=== PATIENT | female | born 1980 | race Caucasian/White ===

== ENCOUNTER 2023-02-14 20:30 | Emergency (ER) | payer OTHER ==
--- NOTE | 2023-02-14 20:46 | ER ---
Nurse's Notes [facility] Name: Ivette Joshi Age: 42 yrs Sex: Female : 1980 Arrival Date: 02/14/2023 Time: 20:30 Bed 9 Private MD: Diagnosis: Acute suppurative otitis media without spontaneous rupture of ear drum, right ear Presentation: 02/14 20:40 Chief complaint: Patient states: Right ear pain for 3 weeks. Coronavirus screen: Client vc1 denies travel out of the [place] in the last 14 days. At this time, the client does not indicate any symptoms associated with coronavirus-19. Ebola Screen: Patient negative for fever greater than or equal to 101.5 degrees Fahrenheit, and additional compatible Ebola Virus Disease symptoms Patient denies exposure to infectious person. Patient denies travel to an Ebola-affected area in the 21 days before illness onset. No symptoms or risks identified at this time. Risk Assessment: Do you want to hurt yourself or someone else? Patient reports no desire to harm self or others. Onset of symptoms is unknown. 20:40 Method Of Arrival: Ambulatory vc1 20:40 Acuity: [facility] 4 vc1 20:58 Initial Sepsis Screen: Does the patient meet any 2 criteria? No. Patient's initial cm10 sepsis screen is negative. Does the patient have a suspected source of infection? No. Patient's initial sepsis screen is negative. 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 - Social history:: Smoking status: Patient reports the use of cigarette tobacco products, smokes one pack cigarettes per day. - Family history:: not pertinent. Screenin:47 Abuse screen: Denies threats or abuse. Nutritional screening: No deficits noted. vc1 Tuberculosis screening: No symptoms or risk factors identified. 20:57 [facility] ED Fall Risk Assessment (Adult) History of falling in the last 3 months, cm10 including since admission No falls in past 3 months (0 pts) Confusion or Disorientation No (0 pts) Intoxicated or Sedated No (0 pts) Impaired Gait No (0 pts) Mobility Assist Device Used No (0 pt) Altered Elimination No (0 pt) Score/Fall Risk Level 0 - 2 = Low Risk Oriented to surroundings, Maintained a safe environment. Assessment: 20:56 General: Appears in no apparent distress. comfortable, Behavior is calm, cooperative. cm10 Pain: Complains of pain in right ear. Neuro: No deficits noted. Level of Consciousness is awake, alert, obeys commands, Oriented to person, place, time, situation. Respiratory: No deficits noted. Airway is patent Respiratory effort is even, unlabored, Respiratory pattern is regular, symmetrical. EENT: Reports pain in right ear. Derm: No deficits noted. Skin is intact, Skin is pink, warm \T\ dry. Musculoskeletal: No deficits noted. Vital Signs: 20:47 BP 151 / 98; Pulse 98; Resp 20; Temp 98.8; Pulse Ox 97% ; Weight 102.06 kg; Height 5 vc1 ft. 6 in. ; Pain 0/10; 20:47 Body Mass Index 36.32 (102.06 kg, 167.64 cm) vc1 20:47 Pain Scale: Adult vc1 ED Course: 20:34 Patient arrived in ED. im 20:36 Robi Garcia MD is Attending Physician. sp4 20:40 Triage completed. vc1 20:47 Arm band placed on right wrist. vc1 20:53 Earline Salinas, JOSE is Primary Nurse. cm10 20:57 Patient has correct armband on for positive identification. Provided Education on: N/A. cm10 20:57 No provider procedures requiring assistance completed. Patient did not have IV access cm10 during this emergency room visit. Administered Medications: No medications were administered Medication: 20:57 VIS not applicable for this client. cm10 Outcome: 20:46 Discharge ordered by . sp4 20:57 Discharged to home ambulatory, with family. cm10 20:57 Condition: good 20:57 Discharge instructions given to patient, Instructed on discharge instructions, follow up and referral plans. medication usage, Demonstrated understanding of instructions, follow-up care, medications. 20:58 Patient left the ED. cm10 Signatures: Aziza Mesa RN RN vc1 Robi Garcia MD MD sp4 Marcia Sims Clarissa, RN RN cm10
--- NOTE | 2023-02-14 20:47 | EDPHYS ---
Physician Documentation [facility] Name: Ivette Joshi Age: 42 yrs Sex: Female : 1980 Arrival Date: 02/14/2023 Time: 20:30 Bed 9 Private MD: ED Physician Robi Garcia HPI: 02/14 20:37 This 42 yrs old Female presents to ER via Unassigned with complaints of Ear sp4 Pain. 20:42 Patient presents with a right ear pain and some drainage from the right ear over the sp4 past 3 weeks. Patient states that when she gets this type of problem usually a Z-José helps. Left ear is non problematic. 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 - Social history:: Smoking status: Patient reports the use of cigarette tobacco products, smokes one pack cigarettes per day. - Family history:: not pertinent. ROS: 20:42 Constitutional: Negative for fever, chills, and weight loss, Eyes: Negative for injury, sp4 pain, redness, and discharge, ENT: Negative for injury, positive for right ear pain, mild amount of discharge from right ear canal otherwise negative 20:42 All other systems are negative. Exam: 20:42 Constitutional: This is a well developed, well nourished patient who is awake, alert, sp4 and in no acute distress. Head/Face: Normocephalic, atraumatic. Eyes: Pupils equal round and reactive to light, extra-ocular motions intact. Lids and lashes normal. Conjunctiva and sclera are not injected. Cornea within normal limits. Periorbital areas with no swelling, redness, or edema. ENT: Nares patent. No nasal discharge, no septal abnormalities noted. Oropharynx with no redness, swelling, or masses, exudates, or evidence of obstruction, uvula midline. Mucous membranes moist. There is no sign of any abnormality on the left ear exam. TM looks normal. Right ear there is opacification of the right tympanic membrane without significant purulence and no redness however there is a right middle ear effusion by exam Neck: Trachea midline, no thyromegaly or masses palpated, and no cervical lymphadenopathy. Supple, full range of motion without nuchal rigidity, or vertebral point tenderness. Chest/axilla: Normal chest wall appearance and motion. Nontender with no deformity. No lesions are appreciated. Cardiovascular: Regular rate and rhythm with a normal S1 and S2. No gallops, murmurs, or rubs. Normal PMI, no JVD. No pulse deficits. Respiratory: Lungs have equal breath sounds bilaterally, clear to auscultation and percussion. No rales, rhonchi or wheezes noted. No increased work of breathing, no retractions or nasal flaring. Abdomen/GI: Soft, non-tender, with normal bowel sounds. No distension or tympany. No guarding or rebound. No evidence of tenderness throughout. Back: No spinal tenderness. No costovertebral tenderness. Skin: Warm, dry with normal turgor. Normal color with no rashes, no lesions, and no evidence of cellulitis. MS/ Extremity: Pulses equal, no cyanosis. Neurovascular intact. Full, normal range of motion. Neuro: Awake and alert, GCS 15, oriented to person, place, time, and situation. Cranial nerves II-XII grossly intact. Motor strength 5/5 in all extremities. Sensory grossly intact. Psych: Awake, alert, with orientation to person, place and time. Behavior, mood, and affect are within normal limits Vital Signs: 20:47 BP 151 / 98; Pulse 98; Resp 20; Temp 98.8; Pulse Ox 97% ; Weight 102.06 kg; Height 5 vc1 ft. 6 in. ; Pain 0/10; 20:47 Body Mass Index 36.32 (102.06 kg, 167.64 cm) vc1 20:47 Pain Scale: Adult vc1 MDM: 20:42 Differential diagnosis: otitis media, otitis externa, ruptured TM, foreign body, acute sp4 otalgia, cerumen impaction. Data reviewed: vital signs, nurses notes, old medical records. 20:46 Patient medically screened. sp4 Administered Medications: No medications were administered Disposition Summary: 02/14/23 20:46 Discharge Ordered Location: Home sp4 Problem: new sp4 Symptoms: are unchanged sp4 Condition: Stable sp4 Diagnosis - Acute suppurative otitis media without spontaneous rupture of ear drum, right ear sp4 Followup: sp4 - With: Private Physician - When: 7 - 10 days - Reason: Recheck today's complaints Discharge Instructions: - Discharge Summary Sheet sp4 - Otitis Media, Adult, [id number] sp4 Forms: - Patient Portal [email or web address].htm sp4 Prescriptions: - Zithromax Z-José 250 mg Oral Tablet - take 1 tablet by ORAL route as directed for 5 days Day 1 - take two (2) tablets sp4 one time. Day 2, 3, 4 , 5 take one (1) tablet once daily.; 6 tablet; Refills: 0, Product Selection Permitted Signatures: Aziza Mesa RN RN vc1 Robi Garcia MD MD sp4
[2023-02-14 23:28] VITALS: BP 151/98; TEMP 98.8; O2SAT 97
== END 2023-02-14 20:58 | disposition home or self-care (01) ==
LOC: ER 20:30
DX: H66.001 Acute suppurative otitis media without spontaneous rupture of ear drum, right ear (principal); F17.210 Nicotine dependence, cigarettes, uncomplicated
CPT/HCPCS: 99282

== ENCOUNTER 2023-03-14 22:38 | Emergency (ER) | payer OTHER ==
--- OUTSIDE RECORDS SUMMARY | 2023-03-14 23:46 | XMS REPORT | Continuity of Care Document ---
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 tablet morning. Branch omeprazole 2022-0 Yes [id number] 40mg Take 1 [facility] 40 mg 4-12 capsule by ity of capsule 00:00: mouth in [place] 00 the Medical morning. Branch fexofenadin 3-0 Yes [id number] 180mg Take 1 [facility] e (LEONCIO 4-12 tablet by ity of ALLERGY) 00:00: mouth in [place] 180 mg 00 the Medical tablet morning. Branch omeprazole 3-0 Yes [id number] 40mg Take 1 [facility] 40 mg 4-12 capsule by ity of capsule 00:00: mouth in [place] 00 the Medical morning. Branch fexofenadin 2022-0 Yes [id number] 180mg Take 1 [facility] e (LEONCIO 4-12 tablet by ity of ALLERGY) 00:00: mouth in [place] 180 mg 00 the Medical tablet morning. Branch omeprazole 2022-0 Yes [id number] 40mg Take 1 [facility] 40 mg 4-12 capsule by ity of capsule 00:00: mouth in [place] 00 the Medical morning. Branch fexofenadin 2022-0 Yes [id number] 180mg Take 1 [facility] e (LEONCIO 4-12 tablet by ity of ALLERGY) 00:00: mouth in [place] 180 mg 00 the Medical tablet morning. Branch omeprazole 2022-0 Yes [id number] 40mg Take 1 [facility] 40 mg 4-12 capsule by ity of capsule 00:00: mouth in [place] 00 the Medical morning. Branch fexofenadin 2022-0 Yes [id number] 180mg Take 1 [facility] e (LEONCIO 4-12 tablet by ity of ALLERGY) 00:00: mouth in [place] 180 mg 00 the Medical tablet morning. Branch omeprazole 3-0 Yes [id number] 40mg Take 1 [facility] 40 mg 4-12 capsule by ity of capsule 00:00: mouth in [place] 00 the Medical morning. Branch fexofenadin 3-0 Yes [id number] 180mg Take 1 [facility] e (LEONCIO 4-12 tablet by ity of ALLERGY) 00:00: mouth in [place] 180 mg 00 the Medical tablet morning. Branch omeprazole 3-0 Yes [id number] 40mg Take 1 [facility] 40 mg 4-12 capsule by ity of capsule 00:00: mouth in [place] 00 the Medical morning. Branch fexofenadin 3-0 Yes [id number] 180mg Take 1 [facility] e (LEONCIO 4-12 tablet by ity of ALLERGY) 00:00: mouth in [place] 180 mg 00 the Medical tablet morning. Branch omeprazole 3-0 Yes [id number] 40mg Take 1 [facility] 40 mg 4-12 capsule by ity of capsule 00:00: mouth in [place] 00 the Medical morning. Branch fexofenadin 3-0 Yes [id number] 180mg Take 1 [facility] e (LEONCIO 4-12 tablet by ity of ALLERGY) 00:00: mouth in [place] 180 mg 00 the Medical tablet morning. Branch omeprazole 3-0 Yes [id number] 40mg Take 1 [facility] 40 mg 4-12 capsule by ity of capsule 00:00: mouth in [place] 00 the Medical morning. Branch fexofenadin 3-0 Yes [id number] 180mg Take 1 [facility] e (LEONCIO 4-12 tablet by ity of ALLERGY) 00:00: mouth in [place] 180 mg 00 the Medical tablet morning. Branch omeprazole 3-0 Yes [id number] 40mg Take 1 [facility] 40 mg 4-12 capsule by ity of capsule 00:00: mouth in [place] 00 the Medical morning. Branch fexofenadin 3-0 Yes [id number] 180mg Take 1 [facility] e (LEONCIO 4-12 tablet by ity of ALLERGY) 00:00: mouth in [place] 180 mg 00 the Medical tablet morning. Branch omeprazole 3-0 Yes [id number] 40mg Take 1 [facility] 40 mg 4-12 capsule by ity of capsule 00:00: mouth in [place] 00 the Medical morning. Branch fexofenadin 3-0 Yes [id number] 180mg Take 1 [facility] e (LEONCIO 4-12 tablet by ity of ALLERGY) 00:00: mouth in [place] 180 mg 00 the Medical tablet morning. Branch omeprazole 3-0 Yes [id number] 40mg Take 1 [facility] 40 mg 4-12 capsule by ity of capsule 00:00: mouth in [place] 00 the Medical morning. Branch fexofenadin 2023-0 Yes [id number] 180mg Take 1 [facility] e (LEONCIO 4-12 tablet by ity of ALLERGY) 00:00: mouth in [place] 180 mg 00 the Medical tablet morning. Branch omeprazole 3-0 Yes [id number] 40mg Take 1 [facility] 40 mg 4-12 capsule by ity of capsule 00:00: mouth in [place] 00 the Medical morning. Branch fexofenadin 3-0 Yes [id number] 180mg Take 1 [facility] e (LEONCIO 4-12 tablet by ity of ALLERGY) 00:00: mouth in [place] 180 mg 00 the Medical tablet morning. Branch omeprazole 2022-0 Yes [id number] 40mg Take 1 [facility] 40 mg 4-12 capsule by ity of capsule 00:00: mouth in [place] 00 the Medical morning. Branch fexofenadin 2022-0 Yes [id number] 180mg Take 1 [facility] e (LEONCIO 4-12 tablet by ity of ALLERGY) 00:00: mouth in [place] 180 mg 00 the Medical tablet morning. Branch omeprazole 2022-0 Yes [id number] 40mg Take 1 [facility] 40 mg 4-12 capsule by ity of capsule 00:00: mouth in [place] 00 the Medical morning. Branch fexofenadin 2022-0 Yes [id number] 180mg Take 1 [facility] e (LEONCIO 4-12 tablet by ity of ALLERGY) 00:00: mouth in [place] 180 mg 00 the Medical tablet morning. Branch omeprazole 2022-0 Yes [id number] 40mg Take 1 [facility] 40 mg 4-12 capsule by ity of capsule 00:00: mouth in [place] 00 the Medical morning. Branch fexofenadin 2022-0 Yes [id number] 180mg Take 1 [facility] e (LEONCIO 4-12 tablet by ity of ALLERGY) 00:00: mouth in [place] 180 mg 00 the Medical tablet morning. Branch omeprazole 2022-0 Yes [id number] 40mg Take 1 [facility] 40 mg 4-12 capsule by ity of capsule 00:00: mouth in [place] 00 the Medical morning. Branch famotidine 2022-0 2022- No [id number] 20mg Take 1 [facility] 20 mg 4-12 04-12 tablet by ity of tablet 00:00: 00:00 mouth in [place] 00 :00 the Medical morning Branch and 1 tablet in the evening. famotidine 2022-0 2022- No [id number] 20mg Take 1 [facility] 20 mg 4-12 04-12 tablet by ity of tablet 00:00: 00:00 mouth in [place] 00 :00 the Medical morning Branch and 1 tablet in the evening. famotidine 2022-0 2022- No [id number] 20mg Take 1 [facility] 20 mg 4-12 04-12 tablet by ity of tablet 00:00: 00:00 mouth in [place] 00 :00 the Medical morning Branch and 1 tablet in the evening. methocarbam 2023-0 Yes [id number] 750mg Take 1 [facility] oL 750 mg 3-30 [id number] tablet by ity of tablet 00:00: mouth 4 (four) Medical times Branch daily. pregabalin 2023-0 Yes [id number] 200mg Take 1 [facility] (LYRICA) 3-30 capsule by ity o f 200 mg 00:00: mouth in [place] capsule 00 the Medical morning Branch and 1 capsule at noon and 1 capsule in the evening. ketorolac 2023-0 Yes [id number] 10mg Take 1 [facility] 10 mg 3-30 [id number] tablet by ity of tablet 00:00: mouth 3 (three) Medical times Branch daily as needed for Pain (scale 7-10). methocarbam 2023-0 Yes [id number] 750mg Take 1 [facility] oL 750 mg 3-30 [id number] tablet by ity of tablet 00:00: mouth (four) Medical times Branch daily. pregabalin 2023-0 Yes [id number] 200mg Take 1 [facility] (LYRICA) 3-30 capsule by ity o f 200 mg 00:00: mouth in [place] capsule the Medical morning Branch and 1 capsule at noon and 1 capsule in the evening. ketorolac 2023-0 Yes [id number] 10mg Take 1 [facility] 10 mg 3-30 [id number] tablet by ity of tablet 00:00: mouth 3 (three) Medical times Branch daily as needed for Pain (scale 7-10). methocarbam 2023-0 Yes [id number] 750mg Take 1 [facility] oL 750 mg 3-30 [id number] tablet by ity of tablet 00:00: mouth 4 (four) Medical times Branch daily. pregabalin 2023-0 Yes [id number] 200mg Take 1 [facility] (LYRICA) 3-30 capsule by ity o f 200 mg 00:00: mouth in [place] capsule the Medical morning Branch and 1 capsule at noon and 1 capsule in the evening. ketorolac 2023-0 Yes [id number] 10mg Take 1 [facility] 10 mg 3-30 [id number] tablet by ity of tablet 00:00: mouth 3 (three) Medical times Branch daily as needed for Pain (scale 7-10). methocarbam 2023-0 Yes [id number] 750mg Take 1 [facility] oL 750 mg 3-30 [id number] tablet by ity of tablet 00:00: mouth (four) Medical times Branch daily. pregabalin 2023-0 Yes [id number] 200mg Take 1 [facility] (LYRICA) 3-30 capsule by ity o f 200 mg 00:00: mouth in capsule the Medical morning Branch and 1 capsule at noon and 1 capsule in the evening. ketorolac 2023-0 Yes [id number] 10mg Take 1 [facility] 10 mg 3-30 [id number] tablet by ity of tablet 00:00: mouth () Medical times Branch daily as needed for Pain (scale 7-10). methocarbam 2023-0 Yes [id number] 750mg Take 1 [facility] oL 750 mg 3-30 [id number] tablet by ity of tablet 00:00: mouth () Medical times Branch daily. pregabalin 2023-0 Yes [id number] 200mg Take 1 [facility] (LYRICA) 3-30 capsule by ity o f 200 mg 00:00: mouth in capsule the Medical morning Branch and 1 capsule at noon and 1 capsule in the evening. ketorolac 2023-0 Yes [id number] 10mg Take 1 [facility] 10 mg 3-30 [id number] tablet by ity of tablet 00:00: mouth (three) Medical times Branch daily as needed for Pain (scale 7-10). methocarbam 2023-0 Yes [id number] 750mg Take 1 [facility] oL 750 mg 3-30 [id number] tablet by ity of tablet 00:00: mouth (four) Medical times Branch daily. pregabalin 2023-0 Yes [id number] 200mg Take 1 [facility] (LYRICA) 3-30 capsule by ity o f 200 mg 00:00: mouth in [place] capsule the Medical morning Branch and 1 capsule at noon and 1 capsule in the evening. ketorolac 2023-0 Yes [id number] 10mg Take 1 [facility] 10 mg 3-30 [id number] tablet by ity of tablet 00:00: mouth (three) Medical times Branch daily as needed for Pain (scale 7-10). methocarbam 2023-0 Yes [id number] 750mg Take 1 [facility] oL 750 mg 3-30 [id number] tablet by ity of tablet 00:00: mouth () Medical times Branch daily. pregabalin 2023-0 Yes [id number] 200mg Take 1 [facility] (LYRICA) 3-30 capsule by ity o f 200 mg 00:00: mouth in [place] capsule 00 the Medical morning Branch and 1 capsule at noon and 1 capsule in the evening. ketorolac 2023-0 Yes [id number] 10mg Take 1 [facility] 10 mg 3-30 [id number] tablet by ity of tablet 00:00: mouth 3 (three) Medical times Branch daily as needed for Pain (scale 7-10). methocarbam 2023-0 Yes [id number] 750mg Take 1 [facility] oL 750 mg 3-30 [id number] tablet by ity of tablet 00:00: mouth 4 () Medical times Branch daily. pregabalin 2023-0 Yes [id number] 200mg Take 1 [facility] (LYRICA) 3-30 capsule by ity o f 200 mg 00:00: mouth in capsule the Medical morning Branch and 1 capsule at noon and 1 capsule in the evening. ketorolac 2023-0 Yes [id number] 10mg Take 1 [facility] 10 mg 3-30 [id number] tablet by ity of tablet 00:00: mouth 3 (three) Medical times Branch daily as needed for Pain (scale 7-10). methocarbam 2023-0 Yes [id number] 750mg Take 1 [facility] oL 750 mg 3-30 [id number] tablet by ity of tablet 00:00: mouth () Medical times Branch daily. pregabalin 2023-0 Yes [id number] 200mg Take 1 [facility] (LYRICA) 3-30 capsule by ity o f 200 mg 00:00: mouth in [place] capsule 00 the Medical morning Branch and 1 capsule at noon and 1 capsule in the evening. methocarbam 2023-0 Yes [id number] 750mg Take 1 [facility] oL 750 mg 3-30 [id number] tablet by ity of tablet 00:00: mouth 4 (four) Medical times Branch daily. pregabalin 2023-0 Yes [id number] 200mg Take 1 [facility] (LYRICA) 3-30 capsule by ity o f 200 mg 00:00: mouth in [place] capsule the Medical morning Branch and 1 capsule at noon and 1 capsule in the evening. methocarbam 2023-0 Yes [id number] 750mg Take 1 [facility] oL 750 mg 3-30 [id number] tablet by ity of tablet 00:00: mouth 4 [place] [address] ([facility] times [place] daily. pregabalin 2023-0 Yes [id number] 200mg Take 1 [facility] (LYRICA) 3-30 capsule by ity o f 200 mg 00:00: mouth in [place] capsule the Medical morning Branch and 1 capsule at noon and 1 capsule in the evening. methocarbam 2023-0 Yes [id number] 750mg Take 1 [facility] oL 750 mg 3-30 [id number] tablet by ity of tablet 00:00: mouth [place] [address] ([facility] times [place] daily. pregabalin 2023-0 Yes [id number] 200mg Take 1 [facility] (LYRICA) 3-30 capsule by ity o f 200 mg 00:00: mouth in [place] capsule [facility] morning Branch and 1 capsule at noon and 1 capsule in the evening. methocarbam 2023-0 Yes [id number] 750mg Take 1 [facility] oL 750 mg 3-30 [id number] tablet by ity of tablet 00:00: mouth [address] times [place] daily. pregabalin 2023-0 Yes [id number] 200mg Take 1 [facility] (LYRICA) 3-30 capsule by ity o f 200 mg 00:00: mouth in [place] capsule the [facility] morning Branch and 1 capsule at noon and 1 capsule in the evening. methocarbam 2023-0 Yes [id number] 750mg Take 1 [facility] oL 750 mg 3-30 [id number] tablet by ity of tablet 00:00: mouth [place] [address] ([facility] times [place] daily. pregabalin 2023-0 Yes [id number] 200mg Take 1 [facility] (LYRICA) 3-30 capsule by ity o f 200 mg 00:00: mouth in [place] capsule the [facility] morning Branch and 1 capsule at noon and 1 capsule in the evening. methocarbam 2023-0 Yes [id number] 750mg Take 1 [facility] oL 750 mg 3-30 [id number] tablet by ity of tablet 00:00: mouth 4 [place] [address] ([facility] times [place] daily. pregabalin 2023-0 Yes [id number] 200mg Take 1 [facility] (LYRICA) 3-30 capsule by ity o f 200 mg 00:00: mouth in [place] capsule the Medical morning Branch and 1 capsule at noon and 1 capsule in the evening. methocarbam 2023-0 Yes [id number] 750mg Take 1 [facility] oL 750 mg 3-30 [id number] tablet by ity of tablet 00:00: mouth 4 [place] [address] ([facility] times [place] daily. pregabalin 2023-0 Yes [id number] 200mg Take 1 [facility] (LYRICA) 3-30 capsule by ity o f 200 mg 00:00: mouth in [place] capsule the [facility] morning Branch and 1 capsule at noon and 1 capsule in the evening. methocarbam 2023-0 Yes [id number] 750mg Take 1 [facility] oL 750 mg 3-30 [id number] tablet by ity of tablet 00:00: mouth [address] daily[address] pregabalin 2023-0 Yes [id number] 200mg Take 1 [facility] (LYRICA) 3-30 capsule by ity o f 200 mg 00:00: mouth in [place] capsule [address] [place] [address] morning Branch and 1 capsule at noon and 1 capsule in the evening. methocarbam 2023-0 Yes [id number] 750mg Take 1 [facility] oL 750 mg 3-30 [id number] tablet by ity of tablet 00:00: mouth [address] daily. pregabalin 2023-0 Yes [id number] 200mg Take 1 [facility] (LYRICA) 3-30 capsule by ity o f 200 mg 00:00: mouth in [place] capsule the [facility] morning Branch and 1 capsule at noon and 1 capsule in the evening. methocarbam 2023-0 Yes [id number] 750mg Take 1 [facility] oL 750 mg 3-30 [id number] tablet by ity of tablet 00:00: mouth [address] times [place] daily. pregabalin 2023-0 Yes [id number] 200mg Take 1 [facility] (LYRICA) 3-30 capsule by ity o f 200 mg 00:00: mouth in [place] capsule the Medical morning Branch and 1 capsule at noon and 1 capsule in the evening. methocarbam 2023-0 Yes [id number] 750mg Take 1 [facility] oL 750 mg 3-30 [id number] tablet by ity of tablet 00:00: mouth 4 [place] (four) Medical times Branch daily. pregabalin 2023-0 Yes [id number] 200mg Take 1 [facility] (LYRICA) 3-30 capsule by ity o f 200 mg 00:00: mouth in [place] capsule 00 the Medical morning Branch and 1 capsule at noon and 1 capsule in the evening. methocarbam 2023-0 Yes [id number] 750mg Take 1 [facility] oL 750 mg 3-30 [id number] tablet by ity of tablet 00:00: mouth 4 [place] (four) Medical times Branch daily. pregabalin 2023-0 Yes [id number] 200mg Take 1 [facility] (LYRICA) 3-30 capsule by ity o f 200 mg 00:00: mouth in [place] capsule 00 the Medical morning Branch and 1 capsule at noon and 1 capsule in the evening. methocarbam 2023-0 Yes [id number] 750mg Take 1 [facility] oL 750 mg 3-30 [id number] tablet by ity of tablet 00:00: mouth [place] (four) Medical times Branch daily. pregabalin 2023-0 Yes [id number] 200mg Take 1 [facility] (LYRICA) 3-30 capsule by ity o f 200 mg 00:00: mouth in [place] capsule 00 the Medical morning Branch and 1 capsule at noon and 1 capsule in the evening. ketorolac 2023-0 2023- No [id number] 10mg Take 1 [facility] 10 mg 3-30 05-02 [id number] tablet by ity of tablet 00:00: 00:00 mouth 3 [place] 00 :00 (three) Medical times Branch daily as needed for Pain (scale 7-10). ketorolac 3-0 2023- No [id number] 10mg Take 1 [facility] 10 mg 3-30 05-02 [id number] tablet by ity of tablet 00:00: 00:00 mouth 3 [place] 00 :00 (three) Medical times Branch daily as needed for Pain (scale 7-10). tiZANidine 3-0 Yes TAKE 1 Unive rs 4 mg 3-27 CAPSULE BY ity of capsule 00:00: MOUTH [place] [address] THREE Medical TIMES Branch DAILY NEEDED FOR MUSCLE SPASM tiZANidine 2023-0 Yes TAKE 1 Unive rs 4 mg 3-27 CAPSULE BY ity of capsule 00:00: MOUTH [place] 00 THREE Medical TIMES Branch DAILY NEEDED FOR MUSCLE SPASM tiZANidine 3-0 Yes TAKE 1 Unive rs 4 mg 3-27 CAPSULE BY ity of capsule 00:00: MOUTH 00 THREE Medical TIMES Branch DAILY NEEDED FOR MUSCLE SPASM tiZANidine 3-0 Yes TAKE 1 Unive rs 4 mg 3-27 CAPSULE BY ity of capsule 00:00: MOUTH THREE Medical TIMES Branch DAILY NEEDED FOR MUSCLE SPASM tiZANidine 3-0 Yes TAKE 1 Unive rs 4 mg 3-27 CAPSULE BY ity of capsule 00:00: MOUTH THREE Medical TIMES Branch DAILY NEEDED FOR MUSCLE SPASM tiZANidine 2022-0 Yes TAKE 1 Unive rs 4 mg 3-27 CAPSULE BY ity of capsule 00:00: MOUTH THREE Medical TIMES Branch DAILY NEEDED FOR MUSCLE SPASM tiZANidine 3-0 Yes TAKE 1 Unive rs 4 mg 3-27 CAPSULE BY ity of capsule 00:00: MOUTH THREE Medical TIMES Branch DAILY NEEDED FOR MUSCLE SPASM tiZANidine 3-0 Yes TAKE 1 Unive rs 4 mg 3-27 CAPSULE BY ity of capsule 00:00: MOUTH THREE Medical TIMES Branch DAILY NEEDED FOR MUSCLE SPASM tiZANidine 3-0 Yes TAKE 1 Unive rs 4 mg 3-27 CAPSULE BY ity of capsule 00:00: MOUTH THREE Medical TIMES Branch DAILY NEEDED FOR MUSCLE SPASM tiZANidine 3-0 Yes TAKE 1 Unive rs 4 mg 3-27 CAPSULE BY ity of capsule 00:00: MOUTH THREE Medical TIMES Branch DAILY NEEDED FOR MUSCLE SPASM ketorolac 2022-0 2022- No [id number] 60mg Un cl[facility] (TORADOL) 10-18 ity of injection 20:45: 20:05 [place] 60 mg 00 :00 Medical Branch ketorolac 2022-0 2022- No [id number] 60mg 60 mg, Univers (TORADOL) 10-18 Intramuscu ity of injection 20:45: 20:05 lar, ONCE, [place] 60 mg 00 :00 1 dose, On Medical Tue Branch 10/18/22 at 1545, Routine ketorolac 2022-0 2022- No [id number] 60mg Un [facility] (TORADOL) 10-18 ity of injection 20:45: 20:05 [place] 60 mg 00 :00 Medical Branch ketorolac 2022- No [id number] 60mg 60 mg, [facility] (TORADOL) 10-18 Intramuscu ity of injection 20:45: 20:05 lar, ONCE, [place] 60 mg 00 :00 1 dose, On Medical Tue Branch 10/18/22 at 1545, Routine methocarbam Yes [id number] 750mg Take 1.5 [facility] oL 500 mg 10-18 [id number] tablets by it y of tablet 00:00: mouth (four) Medical times Branch daily. methocarbam Yes [id number] 750mg Take 1.5 [facility] oL 500 mg 10-18 [id number] tablets by it y of tablet 00:00: mouth (four) Medical times Branch daily. methocarbam 2022- No [id number] 750mg Take 1.5 [facility] oL 500 mg 10-18 [id number] tablets by i ty of tablet 00:00: 00:00 mouth 4 [place] 00 :00 (four) Medical times Branch daily. methocarbam 2022- No [id number] 750mg Take 1.5 [facility] oL 500 mg 10-18 [id number] tablets by i ty of tablet 00:00: 00:00 mouth 4 [place] 00 :00 (four) Medical times Branch daily. oxyCODONE 5 Yes Take 1 Univ ers mg 3-12 tablet by ity of immediate 00:00: mouth [place] release 00 every six Medical tablet hours as Branch needed for pain max 4/day oxyCODONE 5 Yes Take 1 Univ ers mg 3-12 tablet by ity of immediate 00:00: mouth [place] release 00 every six Medical tablet hours as Branch needed for pain max 4/day oxyCODONE 5 2022- Yes Take 1 Univ ers mg 3-12 tablet by ity of immediate 00:00: mouth [place] release 00 every six Medical tablet hours as Branch needed for pain max 4/day oxyCODONE 5 Yes Take 1 Univ ers mg 3-12 tablet by ity of immediate 00:00: mouth [place] release 00 every six Medical tablet hours as Branch needed for pain max 4/day oxyCODONE 5 Yes Take 1 Univ ers mg 3-12 tablet by ity of immediate 00:00: mouth [place] release 00 every six Medical tablet hours as Branch needed for pain max 4/day oxyCODONE 5 0 Yes Take 1 Univ ers mg 3-12 tablet by ity of immediate 00:00: mouth [place] release 00 every six Medical tablet hours as Branch needed for pain max 4/day oxyCODONE 5 0 Yes Take 1 Univ ers mg 3-12 tablet by ity of immediate 00:00: mouth [place] release 00 every six Medical tablet hours as Branch needed for pain max 4/day oxyCODONE 5 Yes Take 1 Univ ers mg 3-12 tablet by ity of immediate 00:00: mouth [place] release 00 every six Medical tablet hours as Branch needed for pain max 4/day oxyCODONE 5 0 Yes Take 1 Univ ers mg 3-12 tablet by ity of immediate 00:00: mouth [place] release 00 every six Medical tablet hours as Branch needed for pain max 4/day oxyCODONE 5 Yes Take 1 Univ ers mg 3-12 tablet by ity of immediate 00:00: mouth [place] release 00 every six Medical tablet hours as Branch needed for pain max 4/day cyclobenzap Yes 7.5mg 7.5 mg, Un claudia rine 3-11 Oral, TID, ity of (FLEXERIL) 20:00: First dose [place] tablet 7.5 00 (after Medical mg last Branch modificati on) on 10/15/22 at 1400, Until Discontinu ed, Routine acetaminoph 0 Yes 1000mg 1,000 mg, [facility] en 3-11 Oral, Q8H, ity of (TYLENOL) 20:00: First dose [place] tablet 00 (after Medical 1,000 mg last Branch modificati on) on 10/15/22 at 1400, Until Discontinu ed, Routine diazePAM 0 Yes 10mg 10 mg, Univers (VALIUM) 3-11 Oral, TID, ity o f tablet 10 20:00: First dose [place] mg 00 (after Medical last Branch modificati on) on 10/15/22 at 1400, Until Discontinu ed, Routine tiZANidine 0 2022- No 4mg Take 1 Univ ers 4 mg 3-11 03-11 capsule by ity of capsule 18:22: 00:00 mouth in [place] 07 :00 the Medical morning Branch and 1 capsule at noon and 1 capsule in the evening. budesonide- 2022-0 Yes 2{puff} Inhale 2 [facility] formoteroL 3-11 Puffs. ity of 160-4.5 18:22: [place] mcg/actuati 05 Medical on inhaler Branch FLUTICASONE 2022-0 Yes 50ug Use 50 mcg [facility] PROPIONATE 3-11 in each ity of NASAL 18:22: nostril [place] [address] once daily Medical as needed Branch for Other (allergies ). ALBUTEROL 2022-0 Yes 8.5mg Inhale 8.5 U nivers INHALE 3-11 mg every 4 ity of 18:22: (four) [place] 05 hours as Medical needed Branch (wheezing) . tiotropium 2022-0 Yes 1 cap(s) Uni vers (SPIRIVA 3-11 ity of WITH 18:22: [place] HANDIHALER) 05 Medical 18 mcg Branch inhalation omeprazole 2022-0 Yes 40mg Take 1 Unive rs 40 mg 3-11 capsule by ity of capsule 18:22: mouth in [place] 05 the Medical morning. Branch Takes at night per patient budesonide- 2022-0 Yes 2{puff} Inhale 2 [facility] formoteroL 3-11 Puffs. ity of 160-4.5 18:22: [place] mcg/actuati 05 Medical on inhaler Branch FLUTICASONE 2022-0 Yes 50ug Use 50 mcg [facility] PROPIONATE 3-11 in each ity of NASAL 18:22: nostril [place] once daily Medical as needed Branch for Other (allergies ). ALBUTEROL 2022-0 Yes 8.5mg Inhale 8.5 U nivers INHALE 3-11 mg every 4 ity of 18:22: (four) [place] 05 hours as Medical needed Branch (wheezing) . tiotropium 2022-0 Yes 1 cap(s) Uni vers (SPIRIVA 3-11 ity of WITH 18:22: [place] HANDIHALER) 05 Medical 18 mcg Branch inhalation omeprazole 2022-0 Yes 40mg Take 1 Unive rs 40 mg 3-11 capsule by ity of capsule 18:22: mouth in [place] 05 the Medical morning. Branch Takes at night per patient budesonide- 2022-0 Yes 2{puff} Inhale 2 [facility] formoteroL 3-11 Puffs. ity of 160-4.5 18:22: [place] mcg/actuati 05 Medical on inhaler Branch FLUTICASONE 2022-0 Yes 50ug Use 50 mcg [facility] PROPIONATE 3-11 in each ity of NASAL 18:22: nostril [place] once daily Medical as needed Branch for Other (allergies ). ALBUTEROL 2022-0 Yes 8.5mg Inhale 8.5 U nivers INHALE 3-11 mg every 4 ity of 18:22: (four) [place] 05 hours as Medical needed Branch (wheezing) . tiotropium 2022-0 Yes 1 cap(s) Uni vers (SPIRIVA 3-11 ity of WITH 18:22: [place] HANDIHALER) 05 Medical 18 mcg Branch inhalation omeprazole 2022-0 Yes 40mg Take 1 Unive rs 40 mg 3-11 capsule by ity of capsule 18:22: mouth in [place] [address] the Medical morning. Branch Takes at night per patient budesonide- 2022-0 Yes 2{puff} Inhale 2 [facility] formoteroL 3-11 Puffs. ity of 160-4.5 18:22: [place] mcg/actuati 05 Medical on inhaler Branch FLUTICASONE 2022-0 Yes 50ug Use 50 mcg [facility] PROPIONATE 3-11 in each ity of NASAL 18:22: nostril [place] 05 once daily Medical as needed Branch for Other (allergies ). ALBUTEROL 2022-0 Yes 8.5mg Inhale 8.5 U nivers INHALE 3-11 mg every 4 ity of 18:22: (four) [place] 05 hours as Medical needed Branch (wheezing) . tiotropium 2022-0 Yes 1 cap(s) Uni vers (SPIRIVA 3-11 ity of WITH 18:22: [place] HANDIHALER) 05 Medical 18 mcg Branch inhalation omeprazole 2022-0 Yes 40mg Take 1 Unive rs 40 mg 3-11 capsule by ity of capsule 18:22: mouth in [place] 05 the Medical morning. Branch Takes at night per patient budesonide- 2022-0 Yes 2{puff} Inhale 2 [facility] formoteroL 3-11 Puffs. ity of 160-4.5 18:22: [place] mcg/actuati 05 Medical on inhaler Branch FLUTICASONE 0 Yes 50ug Use 50 mcg [facility] PROPIONATE 3-11 in each ity of NASAL 18:22: nostril [place] 05 once daily Medical as needed Branch for Other (allergies ). ALBUTEROL Yes 8.5mg Inhale 8.5 U nivers INHALE 3-11 mg every 4 ity of 18:22: (four) [place] 05 hours as Medical needed Branch (wheezing) . tiotropium 0 Yes 1 cap(s) Uni vers (SPIRIVA 3-11 ity of WITH 18:22: [place] HANDIHALER) 05 Medical 18 mcg Branch inhalation omeprazole Yes 40mg Take 1 [facility] rs 40 mg 3-11 capsule by ity of capsule 18:22: mouth in [place] 05 the Medical morning. Branch Takes at night per patient budesonide- 0 Yes 2{puff} Inhale 2 [facility] formoteroL 3-11 Puffs. ity of 160-4.5 18:22: [place] mcg/actuati 05 Medical on inhaler Branch FLUTICASONE 0 Yes 50ug Use 50 mcg [facility] PROPIONATE 3-11 in each ity of NASAL 18:22: nostril [place] 05 once daily Medical as needed Branch for Other (allergies ). ALBUTEROL 0 Yes 8.5mg Inhale 8.5 U nivers INHALE 3-11 mg every 4 ity of 18:22: (four) [place] 05 hours as Medical needed Branch (wheezing) . tiotropium 0 Yes 1 cap(s) Uni vers (SPIRIVA 3-11 ity of WITH 18:22: [place] HANDIHALER) 05 Medical 18 mcg Branch inhalation budesonide- 2022-0 Yes 2{puff} Inhale 2 [facility] formoteroL 3-11 Puffs. ity of 160-4.5 18:22: [place] mcg/actuati 05 Medical on inhaler Branch FLUTICASONE 0 Yes 50ug Use 50 mcg [facility] PROPIONATE 3-11 in each ity of NASAL 18:22: nostril [place] 05 once daily Medical as needed Branch for Other (allergies ). ALBUTEROL 0 Yes 8.5mg Inhale 8.5 U nivers INHALE 3-11 mg every 4 ity of 18:22: (four) [place] 05 hours as Medical needed Branch (wheezing) . tiotropium 2022-0 Yes 1 cap(s) Uni vers (SPIRIVA 3-11 ity of WITH 18:22: [place] HANDIHALER) 05 Medical 18 mcg Branch inhalation budesonide- 2022-0 Yes 2{puff} Inhale 2 [facility] formoteroL 3-11 Puffs. ity of 160-4.5 18:22: [place] mcg/actuati 05 Medical on inhaler Branch FLUTICASONE 2022-0 Yes 50ug Use 50 mcg [facility] PROPIONATE 3-11 in each ity of NASAL 18:22: nostril [place] 05 once daily Medical as needed Branch for Other (allergies ). ALBUTEROL 2022-0 Yes 8.5mg Inhale 8.5 U nivers INHALE 3-11 mg every 4 ity of 18:22: (four) [place] 05 hours as Medical needed Branch (wheezing) . tiotropium 2022-0 Yes 1 cap(s) Uni vers (SPIRIVA 3-11 ity of WITH 18:22: [place] HANDIHALER) 05 Medical 18 mcg Branch inhalation budesonide- 2022-0 Yes 2{puff} Inhale 2 [facility] formoteroL 3-11 Puffs. ity of 160-4.5 18:22: [place] mcg/actuati 05 Medical on inhaler Branch FLUTICASONE 0 Yes 50ug Use 50 mcg [facility] PROPIONATE 3-11 in each ity of NASAL 18:22: nostril [place] 05 once daily Medical as needed Branch for Other (allergies ). ALBUTEROL 2022-0 Yes 8.5mg Inhale 8.5 U nivers INHALE 3-11 mg every 4 ity of 18:22: (four) [place] 05 hours as Medical needed Branch (wheezing) . tiotropium 2022-0 Yes 1 cap(s) Uni vers (SPIRIVA 3-11 ity of WITH 18:22: [place] HANDIHALER) 05 Medical 18 mcg Branch inhalation budesonide- 2022-0 Yes 2{puff} Inhale 2 [facility] formoteroL 3-11 Puffs. ity of 160-4.5 18:22: [place] mcg/actuati 05 Medical on inhaler Branch FLUTICASONE 2023-0 Yes 50ug Use 50 mcg [facility] PROPIONATE 3-11 in each ity of NASAL 18:22: nostril [place] 05 once daily Medical as needed Branch for Other (allergies ). ALBUTEROL 0 Yes 8.5mg Inhale 8.5 U nivers INHALE 3-11 mg every 4 ity of 18:22: (four) [place] 05 hours as Medical needed Branch (wheezing) . tiotropium Yes 1 cap(s) Uni vers (SPIRIVA 3-11 ity of WITH 18:22: [place] HANDIHALER) 05 Medical 18 mcg Branch inhalation budesonide- 0 Yes 2{puff} Inhale 2 [facility] formoteroL 3-11 Puffs. ity of 160-4.5 18:22: [place] mcg/actuati 05 Medical on inhaler Branch FLUTICASONE 0 Yes 50ug Use 50 mcg [facility] PROPIONATE 3-11 in each ity of NASAL 18:22: nostril [place] 05 once daily Medical as needed Branch for Other (allergies ). ALBUTEROL 0 Yes 8.5mg Inhale 8.5 U nivers INHALE 3-11 mg every 4 ity of 18:22: (four) [place] 05 hours as Medical needed Branch (wheezing) . tiotropium 0 Yes 1 cap(s) Uni vers (SPIRIVA 3-11 ity of WITH 18:22: [place] HANDIHALER) 05 Medical 18 mcg Branch inhalation budesonide- 0 Yes 2{puff} Inhale 2 [facility] formoteroL 3-11 Puffs. ity of 160-4.5 18:22: [place] mcg/actuati 05 Medical on inhaler Branch FLUTICASONE 2022-0 Yes 50ug Use 50 mcg [facility] PROPIONATE 3-11 in each ity of NASAL 18:22: nostril [place] 05 once daily Medical as needed Branch for Other (allergies ). ALBUTEROL 2022-0 Yes 8.5mg Inhale 8.5 U nivers INHALE 3-11 mg every 4 ity of 18:22: (four) [place] 05 hours as Medical needed Branch (wheezing) . budesonide- 2022-0 Yes 2{puff} Inhale 2 [facility] formoteroL 3-11 Puffs. ity of 160-4.5 18:22: [place] mcg/actuati 05 Medical on inhaler Branch FLUTICASONE 0 Yes 50ug Use 50 mcg [facility] PROPIONATE 3-11 in each ity of NASAL 18:22: nostril [place] 05 once daily Medical as needed Branch for Other (allergies ). ALBUTEROL 0 Yes 8.5mg Inhale 8.5 U nivers INHALE 3-11 mg every 4 ity of 18:22: (four) [place] 05 hours as Medical needed Branch (wheezing) . budesonide- 0 Yes 2{puff} Inhale 2 [facility] formoteroL 3-11 Puffs. ity of 160-4.5 18:22: [place] mcg/actuati 05 Medical on inhaler Branch FLUTICASONE 0 Yes 50ug Use 50 mcg [facility] PROPIONATE 3-11 in each ity of NASAL 18:22: nostril [place] 05 once daily Medical as needed Branch for Other (allergies ). ALBUTEROL 0 Yes 8.5mg Inhale 8.5 U nivers INHALE 3-11 mg every 4 ity of 18:22: (four) [place] 05 hours as Medical needed Branch (wheezing) . tiotropium Yes 1 cap(s) Uni vers (SPIRIVA 3-11 ity of WITH 18:22: [place] HANDIHALER) 05 Medical 18 mcg Branch inhalation budesonide- 0 Yes 2{puff} Inhale 2 [facility] formoteroL 3-11 Puffs. ity of 160-4.5 18:22: [place] mcg/actuati 05 Medical on inhaler Branch FLUTICASONE 0 Yes 50ug Use 50 mcg [facility] PROPIONATE 3-11 in each ity of NASAL 18:22: nostril [place] 05 once daily Medical as needed Branch for Other (allergies ). ALBUTEROL 2022-0 Yes 8.5mg Inhale 8.5 U nivers INHALE 3-11 mg every 4 ity of 18:22: (four) [place] 05 hours as Medical needed Branch (wheezing) . tiotropium 2022-0 Yes 1 cap(s) Uni vers (SPIRIVA 3-11 ity of WITH 18:22: [place] HANDIHALER) 05 Medical 18 mcg Branch inhalation budesonide- 2022-0 Yes 2{puff} Inhale 2 [facility] formoteroL 3-11 Puffs. ity of 160-4.5 18:22: [place] mcg/actuati 05 Medical on inhaler Branch FLUTICASONE 0 Yes 50ug Use 50 mcg [facility] PROPIONATE 3-11 in each ity of NASAL 18:22: nostril [place] 05 once daily Medical as needed Branch for Other (allergies ). ALBUTEROL 0 Yes 8.5mg Inhale 8.5 U nivers INHALE 3-11 mg every 4 ity of 18:22: (four) [place] 05 hours as Medical needed Branch (wheezing) . tiotropium 0 Yes 1 cap(s) Uni vers (SPIRIVA 3-11 ity of WITH 18:22: [place] HANDIHALER) 05 Medical 18 mcg Branch inhalation budesonide- 0 Yes 2{puff} Inhale 2 [facility] formoteroL 3-11 Puffs. ity of 160-4.5 18:22: [place] mcg/actuati 05 Medical on inhaler Branch FLUTICASONE 0 Yes 50ug Use 50 mcg [facility] PROPIONATE 3-11 in each ity of NASAL 18:22: nostril [place] 05 once daily Medical as needed Branch for Other (allergies ). ALBUTEROL 0 Yes 8.5mg Inhale 8.5 U nivers INHALE 3-11 mg every 4 ity of 18:22: (four) [place] 05 hours as Medical needed Branch (wheezing) . tiotropium 0 Yes 1 cap(s) Uni vers (SPIRIVA 3-11 ity of WITH 18:22: [place] HANDIHALER) 05 Medical 18 mcg Branch inhalation budesonide- 0 Yes 2{puff} Inhale 2 [facility] formoteroL 3-11 Puffs. ity of 160-4.5 18:22: [place] mcg/actuati 05 Medical on inhaler Branch FLUTICASONE 0 Yes 50ug Use 50 mcg [facility] PROPIONATE 3-11 in each ity of NASAL 18:22: nostril [place] 05 once daily Medical as needed Branch for Other (allergies ). ALBUTEROL 0 Yes 8.5mg Inhale 8.5 U nivers INHALE 3-11 mg every 4 ity of 18:22: (four) [place] 05 hours as Medical needed Branch (wheezing) . tiotropium 2023-0 Yes 1 cap(s) Uni vers (SPIRIVA 3-11 ity of WITH 18:22: [place] HANDIHALER) 05 Medical 18 mcg Branch inhalation budesonide- 0 Yes 2{puff} Inhale 2 [facility] formoteroL 3-11 Puffs. ity of 160-4.5 18:22: [place] mcg/actuati 05 Medical on inhaler Branch FLUTICASONE 0 Yes 50ug Use 50 mcg [facility] PROPIONATE 3-11 in each ity of NASAL 18:22: nostril [place] 05 once daily Medical as needed Branch for Other (allergies ). ALBUTEROL 0 Yes 8.5mg Inhale 8.5 U nivers INHALE 3-11 mg every 4 ity of 18:22: (four) [place] 05 hours as Medical needed Branch (wheezing) . tiotropium Yes 1 cap(s) Uni vers (SPIRIVA 3-11 ity of WITH 18:22: [place] HANDIHALER) 05 Medical 18 mcg Branch inhalation budesonide- 0 Yes 2{puff} Inhale 2 [facility] formoteroL 3-11 Puffs. ity of 160-4.5 18:22: [place] mcg/actuati 05 Medical on inhaler Branch FLUTICASONE 0 Yes 50ug Use 50 mcg [facility] PROPIONATE 3-11 in each ity of NASAL 18:22: nostril [place] 05 once daily Medical as needed Branch for Other (allergies ). ALBUTEROL 0 Yes 8.5mg Inhale 8.5 U nivers INHALE 3-11 mg every 4 ity of 18:22: (four) [place] 05 hours as Medical needed Branch (wheezing) . tiotropium 0 Yes 1 cap(s) Uni vers (SPIRIVA 3-11 ity of WITH 18:22: [place] HANDIHALER) 05 Medical 18 mcg Branch inhalation budesonide- 0 Yes 2{puff} Inhale 2 [facility] formoteroL 3-11 Puffs. ity of 160-4.5 18:22: [place] mcg/actuati 05 Medical on inhaler Branch FLUTICASONE 0 Yes 50ug Use 50 mcg [facility] PROPIONATE 3-11 in each ity of NASAL 18:22: nostril [place] 05 once daily Medical as needed Branch for Other (allergies ). ALBUTEROL 0 Yes 8.5mg Inhale 8.5 U nivers INHALE 3-11 mg every 4 ity of 18:22: (four) [place] 05 hours as Medical needed Branch (wheezing) . tiotropium Yes 1 cap(s) Uni vers (SPIRIVA 3-11 ity of WITH 18:22: [place] HANDIHALER) 05 Medical 18 mcg Branch inhalation budesonide- 0 Yes 2{puff} Inhale 2 [facility] formoteroL 3-11 Puffs. ity of 160-4.5 18:22: [place] mcg/actuati 05 Medical on inhaler Branch FLUTICASONE 0 Yes 50ug Use 50 mcg [facility] PROPIONATE 3-11 in each ity of NASAL 18:22: nostril [place] 05 once daily Medical as needed Branch for Other (allergies ). ALBUTEROL 0 Yes 8.5mg Inhale 8.5 U nivers INHALE 3-11 mg every 4 ity of 18:22: (four) [place] 05 hours as Medical needed Branch (wheezing) . tiotropium 0 Yes 1 cap(s) Uni vers (SPIRIVA 3-11 ity of WITH 18:22: [place] HANDIHALER) 05 Medical 18 mcg Branch inhalation budesonide- 0 Yes 2{puff} Inhale 2 [facility] formoteroL 3-11 Puffs. ity of 160-4.5 18:22: [place] mcg/actuati 05 Medical on inhaler Branch FLUTICASONE 0 Yes 50ug Use 50 mcg [facility] PROPIONATE 3-11 in each ity of NASAL 18:22: nostril [place] 05 once daily Medical as needed Branch for Other (allergies ). ALBUTEROL 0 Yes 8.5mg Inhale 8.5 U nivers INHALE 3-11 mg every 4 ity of 18:22: (four) [place] 05 hours as Medical needed Branch (wheezing) . tiotropium 0 Yes 1 cap(s) Uni vers (SPIRIVA 3-11 ity of WITH 18:22: [place] HANDIHALER) 05 Medical 18 mcg Branch inhalation budesonide- 2022-0 Yes 2{puff} Inhale 2 [facility] formoteroL 3-11 Puffs. ity of 160-4.5 18:22: [place] mcg/actuati 05 Medical on inhaler Branch FLUTICASONE 0 Yes 50ug Use 50 mcg [facility] PROPIONATE 3-11 in each ity of NASAL 18:22: nostril [place] 05 once daily Medical as needed Branch for Other (allergies ). ALBUTEROL 0 Yes 8.5mg Inhale 8.5 U nivers INHALE 3-11 mg every 4 ity of 18:22: (four) [place] 05 hours as Medical needed Branch (wheezing) . tiotropium 0 Yes 1 cap(s) Uni vers (SPIRIVA 3-11 ity of WITH 18:22: [place] HANDIHALER) 05 Medical 18 mcg Branch inhalation budesonide- 0 Yes 2{puff} Inhale 2 [facility] formoteroL 3-11 Puffs. ity of 160-4.5 18:22: [place] mcg/actuati 05 Medical on inhaler Branch FLUTICASONE 0 Yes 50ug Use 50 mcg [facility] PROPIONATE 3-11 in each ity of NASAL 18:22: nostril [place] 05 once daily Medical as needed Branch for Other (allergies ). ALBUTEROL 0 Yes 8.5mg Inhale 8.5 U nivers INHALE 3-11 mg every 4 ity of 18:22: (four) [place] 05 hours as Medical needed Branch (wheezing) . tiotropium 0 Yes 1 cap(s) Uni vers (SPIRIVA 3-11 ity of WITH 18:22: [place] HANDIHALER) 05 Medical 18 mcg Branch inhalation budesonide- 0 Yes 2{puff} Inhale 2 Univers formoteroL 3-11 Puffs. ity of 160-4.5 18:22: [place] mcg/actuati 05 Medical on inhaler Branch FLUTICASONE 0 Yes 50ug Use 50 mcg [facility] PROPIONATE 3-11 in each ity of NASAL 18:22: nostril [place] 05 once daily Medical as needed Branch for Other (allergies ). ALBUTEROL 2022-0 Yes 8.5mg Inhale 8.5 U nivers INHALE 3-11 mg every 4 ity of 18:22: (four) [place] 05 hours as Medical needed Branch (wheezing) . tiotropium 2022-0 Yes 1 cap(s) Uni vers (SPIRIVA 3-11 ity of WITH 18:22: [place] HANDIHALER) 05 Medical 18 mcg Branch inhalation budesonide- 2022-0 Yes 2{puff} Inhale 2 Univers formoteroL 3-11 Puffs. ity of 160-4.5 18:22: [place] mcg/actuati 05 Medical on inhaler Branch FLUTICASONE 0 Yes 50ug Use 50 mcg Univers PROPIONATE 3-11 in each ity of NASAL 18:22: nostril [place] 05 once daily Medical as needed Branch for Other (allergies ). ALBUTEROL Yes 8.5mg Inhale 8.5 U nivers INHALE 3-11 mg every 4 ity of 18:22: (four) [place] 05 hours as Medical needed Branch (wheezing) . tiotropium Yes 1 cap(s) Uni vers (SPIRIVA 3-11 ity of WITH 18:22: [place] HANDIHALER) 05 Medical 18 mcg Branch inhalation pregabalin Yes 150mg 150 mg, Uni vers (LYRICA) 3-11 Oral, TID, ity o f capsule 150 15:15: First dose [place] mg 00 (after Medical last Branch modificati on) on [facility] 10/15/22 at 0915, Until Discontinu ed, Routine oxyCODONE Yes 5mg 5 mg, Univers immediate 11 Oral, ity of release 15:10: Q6HPRN, [place] tablet 5 mg 30 Starting Medi benjie on [facility] Branch 10/15/22 at 0910, Until Discontinu ed, Routine, Pain (scale 4-6)
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 : MARCIO WOODRUFF enoxaparin Yes 40mg 40 mg, Unive rs (LOVENOX) 3-11 Subcutaneo ity of injection 15:00: [place], DAILY, [place] 40 mg 00 First dose Medical on [facility] Branch 10/15/22 at 0900, Until Discontinu ed, Routine Fluticasone 0 Yes 1{puff} 1 Puff, Univers -Salmeterol 3-11 Inhalation it y of (ADVAIR) 14:00: , Q12H, [place] 500-50 00 First dose Medical mcg/dose on Sat Branch inhalation 10/15/22 at disk 1 Puff 0800, Until Discontinu ed, Routine omeprazole 0 Yes 40mg 40 mg, Unive rs (PRILOSEC) 10-15 Oral, ity of capsule 40 11:30: Q24H, [place] mg 00 First dose Medical on Sat Branch 10/15/22 at 0530, Until Discontinu ed, Routine dexamethaso 0 2022- No 8mg 8 mg, Univ ers ne sod phos 10-15 Intravenou i ty of PF 08:00: 06:59 s, Q12H [place] injection 8 00 :00 ABX, 6 Medica l mg doses, Branch First dose (after last reorder) on 10/15/22 at 0200, Last dose on Mon10/17/22 at 1400, 1 mL diazePAM 2022-0 2022- No 5mg 5 mg, Univers (VALIUM) 10-1511 Oral, TID, ity of tablet 5 mg 02:00: 15:11 First dose [place] 00 :22 (after Medical last Branch reorder) on Mon10/14/22 at 2000, Until Discontinu ed, Routine methylPREDN 2022-0 Yes [id number] Take by Univers ISolone 4 - [id number] mouth ity of mg tablets 00:00: SEE-INSTRU [place] 00 CTIONS. Medical follow Branch package directions ketorolac 2022-0 Yes [id number] 10mg Take 1 Univers 10 mg - [id number] tablet by ity of tablet 00:00: mouth [place] 00 every 6 Medical (six) Branch hours as needed for Pain (scale 7-10). methocarbam 2022-0 Yes [id number] 500mg Take 1 Univers oL 500 mg - [id number] tablet by ity of tablet 00:00: mouth 4 [place] 00 (four) Medical times Branch daily. methylPREDN 2023-0 Yes [id number] Take by Univers ISolone 4 3- [id number] mouth ity of mg tablets 00:00: SEE-INSTRU [place] 00 CTIONS. Medical follow Branch package directions ketorolac 3-0 Yes [id number] 10mg Take 1 Univers 10 mg 3- [id number] tablet by ity of tablet 00:00: mouth [place] 00 every 6 Medical (six) Branch hours as needed for Pain (scale 7-10). methylPREDN 2023-0 Yes [id number] Take by [facility] ISolone 4 3-11 [id number] mouth ity of mg tablets 00:00: SEE-INSTRU [place] 00 CTIONS. Medical follow Branch package directions ketorolac 2023-0 Yes [id number] 10mg Take 1 [facility] 10 mg 3-11 [id number] tablet by ity of tablet 00:00: mouth [place] 00 every 6 Medical (six) Branch hours as needed for Pain (scale 7-10). methylPREDN 2023-0 Yes [id number] Take by [facility] ISolone 4 3-11 [id number] mouth ity of mg tablets 00:00: SEE-INSTRU [place] 00 CTIONS. Medical follow Branch package directions methylPREDN 2023-0 Yes [id number] Take by [facility] ISolone 4 3-11 [id number] mouth ity of mg tablets 00:00: SEE-INSTRU [place] 00 CTIONS. Medical follow Branch package directions methylPREDN 2023-0 Yes [id number] Take by [facility] ISolone 4 3-11 [id number] mouth ity of mg tablets 00:00: SEE-INSTRU [place] 00 CTIONS. Medical follow Branch package directions methylPREDN 2023-0 Yes [id number] Take by [facility] ISolone 4 3-11 [id number] mouth ity of mg tablets 00:00: SEE-INSTRU [place] 00 CTIONS. Medical follow Branch package directions methylPREDN 2023-0 Yes [id number] Take by [facility] ISolone 4 3-11 [id number] mouth ity of mg tablets 00:00: SEE-INSTRU [place] 00 CTIONS. Medical follow Branch package directions methylPREDN 2023-0 Yes [id number] Take by [facility] ISolone 4 3-11 [id number] mouth ity of mg tablets 00:00: SEE-INSTRU [place] 00 CTIONS. Medical follow Branch package directions methylPREDN 2023-0 Yes [id number] Take by [facility] ISolone 4 3-11 [id number] mouth ity of mg tablets 00:00: SEE-INSTRU [place] 00 CTIONS. Medical follow Branch package directions methylPREDN 2023-0 Yes [id number] Take by [facility] ISolone 4 3-11 [id number] mouth ity of mg tablets 00:00: SEE-INSTRU [place] 00 CTIONS. Medical follow Branch package directions methylPREDN 2023-0 Yes [id number] Take by [facility] 4 3-11 [id number] mouth ity of mg tablets 00:00: SEE-INSTRU [place] 00 CTIONS. Medical follow Branch package directions methylPREDN 2023-0 Yes [id number] Take by [facility] 4 3-11 [id number] mouth ity of mg tablets 00:00: SEE-INSTRU [place] 00 CTIONS. Medical follow Branch package directions methylPREDN 2023-0 Yes [id number] Take by [place] [address] 3-11 [id number] mouth ity of mg tablets 00:00: SEE-INSTRU [place] 00 CTIONS. Medical follow Branch package directions methylPREDN 2023-0 Yes [id number] Take by [place] [address] 3-11 [id number] mouth ity of mg tablets 00:00: SEE-INSTRU [place] 00 CTIONS. Medical follow Branch package directions methylPREDN 2023-0 Yes [id number] Take by [place] [address] 3-11 [id number] mouth ity of mg tablets 00:00: SEE-INSTRU [place] 00 CTIONS. Medical follow Branch package directions methylPREDN 2023-0 Yes [id number] Take by [place] [address] 3-11 [id number] mouth ity of mg tablets 00:00: SEE-INSTRU [place] 00 CTIONS. Medical follow Branch package directions methylPREDN 2023-0 Yes [id number] Take by [place] [address] 3-11 [id number] mouth ity of mg tablets 00:00: SEE-INSTRU [place] 00 CTIONS. Medical follow Branch package directions methylPREDN 2023-0 Yes [id number] Take by [place] [address] 3-11 [id number] mouth ity of mg tablets 00:00: SEE-INSTRU [place] 00 CTIONS. Medical follow Branch package directions methylPREDN 2023-0 Yes [id number] Take by [place] [address] 3-11 [id number] mouth ity of mg tablets 00:00: SEE-INSTRU [place] 00 CTIONS. Medical follow Branch package directions methylPREDN 2023-0 Yes [id number] Take by [facility] 4 3-11 [id number] mouth ity of mg tablets 00:00: SEE-INSTRU [place] 00 CTIONS. Medical follow Branch package directions methylPREDN 2023-0 Yes [id number] Take by [facility] ISolone 4 3-11 [id number] mouth ity of mg tablets 00:00: SEE-INSTRU [place] 00 CTIONS. Medical follow Branch package directions methylPREDN 3-0 Yes [id number] Take by [facility] ISolone 4 3-11 [id number] mouth ity of mg tablets 00:00: SEE-INSTRU [place] 00 CTIONS. Medical follow Branch package directions methylPREDN 3-0 Yes [id number] Take by [facility] ISolone 4 3-11 [id number] mouth ity of mg tablets 00:00: SEE-INSTRU [place] 00 CTIONS. Medical follow Branch package directions methylPREDN 3-0 Yes [id number] Take by [facility] ISolone 4 3-11 [id number] mouth ity of mg tablets 00:00: SEE-INSTRU [place] 00 CTIONS. Medical follow Branch package directions ketorolac 3-0 3- No [id number] 10mg Take 1 Univers 10 mg -06 09-30 [id number] tablet by ity of tablet 00:00: 00:00 mouth [place] 00 :00 every 6 Medical (six) Branch hours as needed for Pain (scale 7-10). ketorolac 2022-0 3- No [id number] 10mg Take 1 [facility] 10 mg 3-06 09- [id number] tablet by ity of tablet 00:00: 00:00 mouth [place] 00 :00 every 6 Medical (six) Branch hours as needed for Pain (scale 7-10). HYDROcodone 2022-2022- No [id number] 1{tbl} Take 1 U nivers -acetaminop 3-06 09-19 tablet by it y of hen 5-325 00:00: 04:59 mouth [place] mg tablet 00 :00 every 4 Medical (four) Branch hours as needed for Pain (scale 7-10) for up to 7 days. Indication s: acute pain HYDROcodone 2022-0 3- No 4647 1{tbl} Take 1 U nivers -acetaminop 3-11 -19 tablet by it y of hen 5-325 00:00: 04:59 mouth [place] mg tablet 00 :00 every 4 Medical (four) Branch hours as needed for Pain (scale 7-10) for up to 7 days. Indication s: acute pain HYDROcodone 2022-0 No [id number] 1{tbl} Take 1 U nivers -acetaminop 10-15 tablet by it y of hen 5-325 00:00: 04:59 mouth [place] mg tablet 00 :00 every 4 Medical (four) Branch hours as needed for Pain (scale 7-10) for up to 7 days. Indication s: acute pain methocarbam 2022- No [id number] 500mg Take 1 Univers oL 500 mg 10-15 [id number] tablet by it y of tablet 00:00: 00:00 mouth 4 [place] 00 :00 (four) Medical times Branch daily. methocarbam 2022- No [id number] 500mg Take 1 [facility] oL 500 mg 10-15 [id number] tablet by it y of tablet 00:00: 00:00 mouth 4 [place] 00 :00 (four) Medical times Branch daily. ketorolac 2022- No 30mg 30 mg, Unive rs (TORADOL) 10-15 Slow IV ity of injection 00:00: 17:39 Push, Q6H, [place] 30 mg 00 :00 4 doses, Medical First dose Branch on Mon10/14/22 at 1800, Last dose on 10/15/22 at 1200, Routine bisacodyL Yes 10mg 10 mg, Univer s (DULCOLAX) - Oral, ity of tablet 10 23:19: QDAILYPRN, [place] mg 08 Starting Medical on Fri Branch 10/14/22 at 1719, Until Discontinu ed, Routine, Constipati on HYDROcodone 2022- No 1{tbl} 1 tablet, Univers -acetaminop 10-14 Oral, ity of hen (NORCO 23:19: 15:11 Q6HPRN, [place] 5) 5-325 mg 08 :21 Starting Medi benjie tablet 1 on Fri Branch tablet 10/14/22 at 1719, Until 10/15/22 at 0911, Routine, Pain (scale 4-6) diazePAM 2022- No 5mg 5 mg, Univers (VALIUM) 10-14 Oral, ity of tablet 5 mg 20:30: 19:46 ONCE, 1 [place] 00 :00 dose, On Medical Fri Branch 10/14/22 at 1430, Routine dexamethaso 2022- No 10mg 10 mg, Uni vers ne sod phos 10-14 Intravenou i ty of PF 20:30: 19:45 s, ONCE, 1 [place] injection 00 :00 dose, On Medica l 10 mg Fri Branch 10/14/22 at 1430, 1 mL cyclobenzap 2022- No 5mg 5 mg, Univ ers rine 10-14 Oral, TID, ity of (FLEXERIL) 20:00: 15:11 First dose [place] tablet 5 mg 00 :54 on Fri Medica l 10/14/22 at Branch 1400, Until Discontinu ed, Routine HYDROcodone 2022- No 1{tbl} 1 tablet, Univers -acetaminop 10-14 Oral, ity of hen (NORCO 19:45: 19:32 ONCE, 1 [place] 5) 5-325 mg 00 :00 dose, On Medi benjie tablet 1 Fri Branch tablet 10/14/22 at 1345, TALIA NaCl 0.9% 2022- No 1000mL at 999 Uni vers (NS) bolus 10-14-10 mL/hr, ity of infusion 19:00: 19:00 1,000 mL, [place] 1,000 mL 00 :00 IV Medical Infusion, Branch ONCE, 1 dose, On 10/14/22 at 1300, TALIA methylPREDN 2022-0 Yes [id number] 84mg Take 21 [facility] ISolone 3-10 tablets by ity of (MEDROL, 00:00: mouth [place] UNA,) 4 mg 00 SEE-INSTRU Med ical tablets CTIONS. Branch follow package directions methylPREDN 2022-0 Yes [id number] 84mg Take 21 [facility] ISolone 3-10 tablets by ity of (MEDROL, 00:00: mouth [place] UNA,) 4 mg 00 SEE-INSTRU Med ical tablets CTIONS. Branch follow package directions diclofenac 2022-0 2022- No [id number] 75mg Take 1 [facility] 75 mg EC 3-10 04-10 tablet by ity o f tablet 00:00: 04:59 mouth in [place] 00 :00 the Medical morning Branch and 1 tablet in the evening. Take with meals. Do all this for 30 days. diclofenac 2022-2022- No [id number] 75mg Take 1 [facility] 75 mg EC 3-10 04-10 tablet by ity o f tablet 00:00: 04:59 mouth in [place] 00 :00 Psychiatric and 1 tablet in the evening. Take with meals. Do all this for 30 days. diclofenac 2022-0 2022- No [id number] 75mg Take 1 [facility] 75 mg EC 3-10 04-10 tablet by ity o f tablet 00:00: 04:59 mouth in [place] 00 :00 Psychiatric and 1 tablet in the evening. Take with meals. Do all this for 30 days. diclofenac 2022-2022- No [id number] 75mg Take 1 [facility] 75 mg EC 3-10 04-10 tablet by ity o f tablet 00:00: 04:59 mouth in [place] 00 :00 Psychiatric and 1 tablet in the evening. Take with meals. Do all this for 30 days. diclofenac 2022-2022- No [id number] 75mg Take 1 [facility] 75 mg EC 3-10 04-10 tablet by ity o f tablet 00:00: 04:59 mouth in [place] 00 :00 Psychiatric and 1 tablet in the evening. Take with meals. Do all this for 30 days. diclofenac 2022-0 2022- No [id number] 75mg Take 1 [facility] 75 mg EC 3-10 03-30 tablet by ity o f tablet 00:00: 00:00 mouth in [place] 00 :00 Psychiatric and 1 tablet in the evening. Take with meals. Do all this for 30 days. diclofenac 2022-2022- No [id number] 75mg Take 1 [facility] 75 mg EC 3-10 03-30 tablet by ity o f tablet 00:00: 00:00 mouth in [place] 00 :00 Psychiatric and 1 tablet in the evening. Take with meals. Do all this for 30 days. methylPREDN 2022-3- No [id number] 84mg Take 21 [facility] ISolone 3-10 03-11 tablets by ity o f (MEDROL, 00:00: 00:00 mouth [place] [facility],) 4 mg 00 :00 SEE-INSTRU Med ical tablets CTIONS. Branch follow package directions pregabalin 2022- Yes [id number] 150mg Take 1 [facility] (LYRICA) 3-09 capsule by ity o f 150 mg 00:00: mouth in [place] capsule 00 the Medical morning Branch and 1 capsule at noon and 1 capsule in the evening. pregabalin 2023-0 Yes [id number] 150mg Take 1 [facility] (LYRICA) 3-09 capsule by ity o f 150 mg 00:00: mouth in [place] capsule 00 the Medical morning Branch and 1 capsule at noon and 1 capsule in the evening. pregabalin 2023-0 Yes [id number] 150mg Take 1 [facility] (LYRICA) 3-09 capsule by ity o f 150 mg 00:00: mouth in [place] capsule 00 the Medical morning Branch and 1 capsule at noon and 1 capsule in the evening. pregabalin 3-0 Yes [id number] 150mg Take 1 [facility] (LYRICA) 3-09 capsule by ity o f 150 mg 00:00: mouth in [place] capsule 00 the Medical morning Branch and 1 capsule at noon and 1 capsule in the evening. pregabalin 3-0 Yes [id number] 150mg Take 1 [facility] (LYRICA) 3-09 capsule by ity o f 150 mg 00:00: mouth in [place] capsule 00 the Medical morning Branch and 1 capsule at noon and 1 capsule in the evening. pregabalin 3-0 Yes [id number] 150mg Take 1 [facility] (LYRICA) 3-09 capsule by ity o f 150 mg 00:00: mouth in [place] capsule 00 the Medical morning Branch and 1 capsule at noon and 1 capsule in the evening. pregabalin 2023-0 2023- No [id number] 150mg Take 1 [facility] (LYRICA) 3-04 09-30 capsule by ity of 150 mg 00:00: 00:00 mouth in [place] capsule 00 :00 the Medical morning Branch and 1 capsule at noon and 1 capsule in the evening. pregabalin 2023-0 2023- No [id number] 150mg Take 1 [facility] (LYRICA) 3-04 09-30 capsule by ity of 150 mg 00:00: 00:00 mouth in [place] capsule 00 :00 the Medical morning Branch and 1 capsule at noon and 1 capsule in the evening. pregabalin 2023-0 Yes [id number] 150mg Take 1 [facility] (LYRICA) 3-08 capsule by ity o f 150 mg 00:00: mouth in [place] capsule 00 the Medical morning Branch and 1 capsule at noon and 1 capsule in the evening. pregabalin 2023-0 Yes [id number] 150mg Take 1 [facility] (LYRICA) 3-08 capsule by ity o f 150 mg 00:00: mouth in [place] capsule 00 the Medical morning Branch and 1 capsule at noon and 1 capsule in the evening. pregabalin 2023-0 Yes [id number] 150mg Take 1 [facility] (LYRICA) 3-08 capsule by ity o f 150 mg 00:00: mouth in [place] capsule 00 the Medical morning Branch and 1 capsule at noon and 1 capsule in the evening. pregabalin 2022-0 3- No [id number] 150mg Take 1 [facility] (LYRICA) 308 03-08 capsule by ity of 150 mg 00:00: 00:00 mouth in [place] capsule 00 :00 the Medical morning Branch and 1 capsule at noon and 1 capsule in the evening. gadoteridol 2022-0 2022- No [id number] .2mL/kg 20.24 mL [facility] (PROHANCE-2 10-07-03 (0.2 mL/kg i ty of 0 mL) 18:00: 17:56 ?101.2 [place] injection 00 :00 kg), Medical 20.24 mL Intravenou Branc h s, ONCE, 1 dose, On Mon10/07/22 at 1200, Routine cyclobenzap 3-0 Yes Univer s rine 10 mg 2-22 ity of tablet 00:00: [place] [facility] Branch cyclobenzap 2023-0 Yes Univer s rine 10 mg 2-22 ity of tablet 00:00: [place] [facility] Branch cyclobenzap 2023-0 Yes Univer s rine 10 mg 2-22 ity of tablet 00:00: [place] [facility] Branch cyclobenzap 2023-0 Yes Univer s rine 10 mg 2-22 ity of tablet 00:00: [place] [facility] Branch cyclobenzap 2023-0 Yes Univer s rine 10 mg 2-22 ity of tablet 00:00: [place] [facility] cyclobenzap 2023-0 Yes Univer s rine 10 mg 2-22 ity of tablet 00:00: [place] [facility] Branch cyclobenzap 2023-0 Yes Univer s rine 10 mg 2-22 ity of tablet 00:00: [place] [address] Medical Branch cyclobenzap 2023-0 Yes Univer s rine 10 mg 2-22 ity of tablet 00:00: [place] [address] Medical Branch cyclobenzap 2023-0 Yes Univer s rine 10 mg 2-22 ity of tablet 00:00: [place] [address] Medical Branch cyclobenzap 2023-0 Yes Univer s rine 10 mg 2-22 ity of tablet 00:00: [address] Branch tiZANidine 2023-0 Yes 4mg Take 1 Unive rs 4 mg tablet 2-16 tablet by ity of 00:00: mouth in [place] [address] the Medical morning Branch and 1 tablet at noon and 1 tablet in the evening. tiZANidine 2023-0 Yes 4mg Take 1 Unive rs 4 mg tablet 2-16 tablet by ity of 00:00: mouth in [place] [address] the [facility] morning [place] and 1 tablet at noon and 1 tablet in the evening. tiZANidine 2023-0 Yes 4mg Take 1 Unive rs 4 mg tablet 2-16 tablet by ity of 00:00: mouth in [place] [address] the [facility] morning [place] and 1 tablet at noon and 1 tablet in the evening. tiZANidine 2023-0 Yes 4mg Take 1 Unive rs 4 mg tablet 2-16 tablet by ity of 00:00: mouth in [place] [address] the [facility] morning [place] and 1 tablet at noon and 1 tablet in the evening. tiZANidine 2023-0 Yes 4mg Take 1 Unive rs 4 mg tablet 2-16 tablet by ity of 00:00: mouth in [place] [address] the [facility] morning [place] and 1 tablet at noon and 1 tablet in the evening. tiZANidine 2023-0 Yes 4mg Take 1 Unive rs 4 mg tablet 2-16 tablet by ity of 00:00: mouth in [place] [address] the [facility] morning [place] and 1 tablet at noon and 1 tablet in the evening. tiZANidine 2023-0 Yes 4mg Take 1 Unive rs 4 mg tablet 2-16 tablet by ity of 00:00: mouth in [address] morning [place] and 1 tablet at noon and 1 tablet in the evening. tiZANidine 2023-0 2023- No 4mg Take 1 Univ ers 4 mg tablet 2-16 03-11 tablet by it y of 00:00: 00:00 mouth in [place] 00 :00 the Medical morning Branch and 1 tablet at noon and 1 tablet in the evening. tiotropium 3-0 Yes 1 cap(s) Uni vers (SPIRIVA 2-15 ity of WITH 14:26: [place] HANDIHALER) 22 Medical 18 mcg Branch inhalation omeprazole 2022-0 Yes 1{capsu Take 1 Un cl[place] 40 mg 2-15 le} capsule by ity of capsule 14:26: mouth in [place] [address] the Medical morning. Branch tiotropium 2022-0 Yes 1 cap(s) Uni vers (SPIRIVA 2-15 ity of WITH 14:26: [place] HANDIHALER) 22 Medical 18 mcg Branch inhalation omeprazole 2022-0 Yes 1{capsu Take 1 Un [place] 40 mg 2-15 le} capsule by ity of capsule 14:26: mouth in [place] [address] the Medical morning. Branch tiotropium 3-0 Yes 1 cap(s) Uni vers (SPIRIVA 2-15 ity of WITH 14:26: [place] HANDIHALER) 22 Medical 18 mcg Branch inhalation omeprazole 2022-0 Yes 1{capsu Take 1 Un [place] 40 mg 2-15 le} capsule by ity of capsule 14:26: mouth in [place] [address] the Medical morning. Branch tiotropium 3-0 Yes 1 cap(s) Uni vers (SPIRIVA 2-15 ity of WITH 14:26: [place] HANDIHALER) 22 Medical 18 mcg Branch inhalation omeprazole 3-0 Yes 1{capsu Take 1 Un [place] 40 mg 2-15 le} capsule by ity of capsule 14:26: mouth in [place] [address] the Medical morning. Branch tiotropium 3-0 Yes 1 cap(s) Uni vers (SPIRIVA 2-15 ity of WITH 14:26: [place] HANDIHALER) 22 Medical 18 mcg Branch inhalation omeprazole 3-0 Yes 1{capsu Take 1 Un [place] 40 mg 2-15 le} capsule by ity of capsule 14:26: mouth in [place] [address] the Medical morning. Branch tiotropium 3-0 Yes 1 cap(s) Uni vers (SPIRIVA 2-15 ity of WITH 14:26: [place] HANDIHALER) 22 Medical 18 mcg Branch inhalation omeprazole 2023-0 Yes 1{capsu Take 1 Un [place] 40 mg 2-15 le} capsule by ity of capsule 14:26: mouth in [place] [address] the Medical morning. Branch tiotropium 2022-0 Yes 1 cap(s) Uni vers (SPIRIVA 2-15 ity of WITH 14:26: [place] HANDIHALER) 22 Medical 18 mcg Branch inhalation omeprazole 2022-0 Yes 1{capsu Take 1 Un [place] 40 mg 2-15 le} capsule by ity of capsule 14:26: mouth in [place] 22 the Medical morning. Branch tiotropium 2022-0 Yes 1 cap(s) Uni vers (SPIRIVA 2-15 ity of WITH 14:26: [place] HANDIHALER) 22 Medical 18 mcg Branch inhalation omeprazole 2022-0 Yes 1{capsu Take 1 Un [place] 40 mg 2-15 le} capsule by ity of capsule 14:26: mouth in [place] [address] the Medical morning. Branch tiotropium 2022-0 Yes 1 cap(s) Uni vers (SPIRIVA 2-15 ity of WITH 14:26: [place] HANDIHALER) 22 Medical 18 mcg Branch inhalation omeprazole 2022-0 Yes 1{capsu Take 1 Un [place] 40 mg 2-15 le} capsule by ity of capsule 14:26: mouth in [place] [address] the Medical morning. Branch tiZANidine 2022-0 Yes [id number] 4mg Take 1 [facility] 4 mg 2-15 capsule by ity of capsule 00:00: mouth 3 [place] [address] (three) Medical times Branch daily as needed for Muscle Spasms. meloxicam 2022-0 Yes [id number] 7.5mg Take 1 [facility] 7.5 mg 2-15 tablet by ity of tablet 00:00: mouth in [place] 00 the Medical morning. Branch tiZANidine 2022-0 Yes [id number] 4mg Take 1 [facility] 4 mg 2-15 capsule by ity of capsule 00:00: mouth 3 [place] 00 (three) Medical times Branch daily as needed for Muscle Spasms. meloxicam 2022-0 Yes [id number] 7.5mg Take 1 [facility] 7.5 mg 2-15 tablet by ity of tablet 00:00: mouth in [place] 00 the Medical morning. Branch tiZANidine 2022-0 Yes [id number] 4mg Take 1 [facility] 4 mg 2-15 capsule by ity of capsule 00:00: mouth 3 [place] 00 (three) Medical times Branch daily as needed for Muscle Spasms. meloxicam 2023-0 Yes [id number] 7.5mg Take 1 [facility] 7.5 mg 2-15 tablet by ity of tablet 00:00: mouth in [place] 00 the Medical morning. Branch tiZANidine 2023-0 Yes [id number] 4mg Take 1 [facility] 4 mg 2-15 capsule by ity of capsule 00:00: mouth 3 [place] (three) Medical times Branch daily as needed for Muscle Spasms. meloxicam 2023-0 Yes [id number] 7.5mg Take 1 [facility] 7.5 mg 2-15 tablet by ity of tablet 00:00: mouth in [place] the Medical morning. Branch tiZANidine 2023-0 Yes [id number] 4mg Take 1 [facility] 4 mg 2-15 capsule by ity of capsule 00:00: mouth 3 [place] (three) Medical times Branch daily as needed for Muscle Spasms. meloxicam 2023-0 Yes [id number] 7.5mg Take 1 [facility] 7.5 mg 2-15 tablet by ity of tablet 00:00: mouth in [place] the Medical morning. Branch tiZANidine 3-0 Yes [id number] 4mg Take 1 [facility] 4 mg 2-15 capsule by ity of capsule 00:00: mouth 3 [place] (three) Medical times Branch daily as needed for Muscle Spasms. meloxicam 2023-0 Yes [id number] 7.5mg Take 1 [facility] 7.5 mg 2-15 tablet by ity of tablet 00:00: mouth in [place] the Medical morning. Branch tiZANidine 3-0 Yes [id number] 4mg Take 1 [facility] 4 mg 2-15 capsule by ity of capsule 00:00: mouth 3 [place] (three) Medical times Branch daily as needed for Muscle Spasms. meloxicam 2023-0 Yes [id number] 7.5mg Take 1 [facility] 7.5 mg 2-15 tablet by ity of tablet 00:00: mouth in [place] the Medical morning. Branch tiZANidine 2023-0 Yes [id number] 4mg Take 1 [facility] 4 mg 2-15 capsule by ity of capsule 00:00: mouth 3 [place] (three) Medical times Branch daily as needed for Muscle Spasms. tiZANidine 2023-0 Yes [id number] 4mg Take 1 [facility] 4 mg 2-15 capsule by ity of capsule 00:00: mouth 3 [place] 00 (three) Medical times [place] daily as needed for Muscle Spasms. tiZANidine 2022- No [id number] 4mg Take 1 [facility] 4 mg 2-15 03-11 capsule by ity of capsule 00:00: 00:00 mouth 3 [place] 00 :00 (three) Medical times [place] daily as needed for Muscle Spasms. meloxicam 2022- No [id number] 7.5mg Take 1 [facility] 7.5 mg 2-15 03-10 tablet by ity of tablet 00:00: 00:00 mouth in [place] 00 :00 the Medical morning. Branch meloxicam 2022-2022- No [id number] 7.5mg Take 1 [facility] 7.5 mg 2-15 03-10 tablet by ity of tablet 00:00: 00:00 mouth in [place] 00 :00 the Medical morning. Branch pregabalin 2022-0 Yes [id number] 150mg Take 1 [facility] (LYRICA) 1-30 capsule by ity o f 150 mg 00:00: mouth in [place] [address] the Medical morning Branch and 1 capsule in the evening. pregabalin 2022-0 Yes [id number] 150mg Take 1 [facility] (LYRICA) 1-30 capsule by ity o f 150 mg 00:00: mouth in [facility] 00 the Medical morning Branch and 1 capsule in the evening. pregabalin 2022-0 Yes [id number] 150mg Take 1 [facility] (LYRICA) 1-30 capsule by ity o f 150 mg 00:00: mouth in [facility] the Medical morning Branch and 1 capsule in the evening. pregabalin 2022-0 Yes [id number] 150mg Take 1 [facility] (LYRICA) 1-30 capsule by ity o f 150 mg 00:00: mouth in [place] capsule 00 the Medical morning Branch and 1 capsule in the evening. pregabalin 2022-0 Yes [id number] 150mg Take 1 [facility] (LYRICA) 1-30 capsule by ity o f 150 mg 00:00: mouth in [place] capsule 00 the Medical morning Branch and 1 capsule in the evening. pregabalin 2022-0 2022- No [id number] 150mg Take 1 [facility] (LYRICA) 1-30 03-08 capsule by ity of 150 mg 00:00: 00:00 mouth in [place] capsule 00 :00 the Medical morning Branch and 1 capsule in the evening. pregabalin 2022-0 2022- No [id number] 150mg Take 1 [facility] (LYRICA) 1-30 03-08 capsule by ity of 150 mg 00:00: 00:00 mouth in [place] capsule 00 :00 the Medical morning Branch and 1 capsule in the evening. tiotropium 2022-0 Yes 1 cap(s) Uni vers (SPIRIVA 1-27 ity of WITH 13:03: [place] HANDIHALER) 41 Medical 18 mcg Branch inhalation omeprazole 2022-0 Yes 1{capsu Take 1 Un [place] 40 mg 1-27 le} capsule by ity of capsule 13:03: mouth in [place] [address] the Medical morning. Branch tiotropium 2022-0 Yes 1 cap(s) Uni vers (SPIRIVA 1-27 ity of WITH 13:03: [place] HANDIHALER) 41 Medical 18 mcg Branch inhalation omeprazole 2022-0 Yes 1{capsu Take 1 Un [place] 40 mg 1-27 le} capsule by ity of capsule 13:03: mouth in [place] [address] the Medical morning. Branch tiotropium 2022-0 Yes 1 cap(s) Uni vers (SPIRIVA 1-27 ity of WITH 13:03: [place] HANDIHALER) 41 Medical 18 mcg Branch inhalation omeprazole 2022-0 Yes 1{capsu Take 1 Un [place] 40 mg 1-27 le} capsule by ity of capsule 13:03: mouth in [place] [address] the Medical morning. Branch tiotropium 2022-0 Yes 1 cap(s) Uni vers (SPIRIVA 1-27 ity of WITH 13:03: [place] HANDIHALER) 41 Medical 18 mcg Branch inhalation omeprazole 2022-0 Yes 1{capsu Take 1 Un [place] 40 mg 1-27 le} capsule by ity of capsule 13:03: mouth in [place] [address] the Medical morning. Branch pregabalin 2022-0 Yes [id number] 75mg Take 1 [facility] (LYRICA) 75 1-20 capsule by it y of mg capsule 00:00: mouth in [facility] as 00 the Medical morning Branch and 1 capsule at noon and 1 capsule in the evening. pregabalin 3-0 Yes [id number] 75mg Take 1 Univers (LYRICA) 75 1-20 capsule by it y of mg capsule 00:00: mouth in [place] as 00 the Medical morning Branch and 1 capsule at noon and 1 capsule in the evening. pregabalin 2022-0 Yes [id number] 75mg Take 1 [facility] (LYRICA) 75 1-20 capsule by it y of mg capsule 00:00: mouth in [place] as 00 the Medical morning Branch and 1 capsule at noon and 1 capsule in the evening. pregabalin 2022-0 Yes [id number] 75mg Take 1 Univers (LYRICA) 75 1-20 capsule by it y of mg capsule 00:00: mouth in [place] as 00 the Medical morning Branch and 1 capsule at noon and 1 capsule in the evening. pregabalin 2022-0 Yes [id number] 75mg Take 1 [facility] (LYRICA) 75 1-20 capsule by it y of mg capsule 00:00: mouth in [place] as 00 the Medical morning Branch and 1 capsule at noon and 1 capsule in the evening. pregabalin 2022-0 Yes [id number] 75mg Take 1 Univers (LYRICA) 75 1-20 capsule by it y of mg capsule 00:00: mouth in [place] as 00 the Medical morning Branch and 1 capsule at noon and 1 capsule in the evening. pregabalin 2022- No [id number] 75mg Take 1 [facility] (LYRICA) 75 1-20 01-30 capsule by i ty of mg capsule 00:00: 00:00 mouth in [place] 00 :00 the Medical morning Branch and 1 capsule at noon and 1 capsule in the evening. pregabalin 2022- No [id number] 75mg Take 1 Univers (LYRICA) 75 1-20 01-30 capsule by i ty of mg capsule 00:00: 00:00 mouth in [place] 00 :00 the Medical morning Branch and 1 capsule at noon and 1 capsule in the evening. HYDROcodone 0 2022- No [id number] 1{tbl} Take 1 U nivers -acetaminop 08-08 01-10 tablet by it y of hen (NORCO) 00:00: 05:59 [place] 10[place] 00 :00 every 4 Medical tablet (four) Branch hours as needed for Pain (scale 7-10) for up to 7 days. Indication s: acute pain methylPREDN 2021-08- No Take by Un cl[place] ISolone 10-03 mouth ity of (MEDROL, 00:00: 05:59 SEE-INSTRU [place] UNA,) 4 mg 00 :00 CTIONS for Med ical tablets 6 days. Branch follow package directions methylPREDN 2021-08- No Take by Un [place] ISolone 10-03 mouth ity of (MEDROL, 00:00: 05:59 [place]-INSTRU [place] [facility],) 4 mg 00 :00 CTIONS for Med ical tablets 6 days. Branch follow package directions methylPREDN 2021-08- No Take by Un [place] ISolone 10-03 mouth ity of (MEDROL, 00:00: 05:59 [place]-INSTRU [place] [facility],) 4 mg 00 :00 CTIONS for Med ical tablets 6 days. Branch follow package directions methylPREDN 2021-08- No Take by Un [place] ISolone 10-03 mouth ity of (MEDROL, 00:00: 05:59 [place]-INSTRU [place] [facility],) 4 mg 00 :00 CTIONS for Med ical tablets 6 days. Branch follow package directions tiZANidine 2021-08 Yes [id number] 4mg Take 1 Univers 4 mg 2-19 capsule by ity of capsule 00:00: mouth 3 [place] 00 (three) Medical times Branch daily as needed for Muscle Spasms. tiZANidine 2021-08 Yes [id number] 4mg Take 1 Univers 4 mg 2-19 capsule by ity of capsule 00:00: mouth 3 [place] 00 (three) Medical times Branch daily as needed for Muscle Spasms. tiZANidine 2021-08 Yes [id number] 4mg Take 1 [facility] 4 mg 2-19 capsule by ity of capsule 00:00: mouth 3 [place] 00 (three) Medical times Branch daily as needed for Muscle Spasms. tiZANidine 2021-08 Yes [id number] 4mg Take 1 [facility] 4 mg 2-19 capsule by ity of capsule 00:00: mouth 3 [place] 00 (three) Medical times Branch daily as needed for Muscle Spasms. tiZANidine 2021-08 Yes [id number] 4mg Take 1 [facility] 4 mg 2-19 capsule by ity of capsule 00:00: mouth 3 (three) Medical times Branch daily as needed for Muscle Spasms. tiZANidine 2021-08 Yes [id number] 4mg Take 1 [facility] 4 mg 2-19 capsule by ity of capsule 00:00: mouth 3 (three) Medical times Branch daily as needed for Muscle Spasms. tiZANidine 2021-08 Yes [id number] 4mg Take 1 [facility] 4 mg 2-19 capsule by ity of capsule 00:00: mouth (three) Medical times Branch daily as needed for Muscle Spasms. tiZANidine 2021-08 Yes [id number] 4mg Take 1 Univers 4 mg 2-19 capsule by ity of capsule 00:00: mouth (three) Medical times Branch daily as needed for Muscle Spasms. tiZANidine 2021-08 Yes [id number] 4mg Take 1 [facility] 4 mg 2-19 capsule by ity of capsule 00:00: mouth 3 (three) Medical times Branch daily as needed for Muscle Spasms. tiZANidine 2021-08 Yes [id number] 4mg Take 1 [facility] 4 mg 2-19 capsule by ity of capsule 00:00: mouth (three) Medical times Branch daily as needed for Muscle Spasms. tiZANidine 2021-08 Yes [id number] 4mg Take 1 [facility] 4 mg 2-19 capsule by ity of capsule 00:00: mouth 3 (three) Medical times Branch daily as needed for Muscle Spasms. tiZANidine 2021-08 Yes [id number] 4mg Take 1 [facility] 4 mg 2-19 capsule by ity of capsule 00:00: mouth (three) Medical times Branch daily as needed for Muscle Spasms. tiZANidine 2021-08 Yes [id number] 4mg Take 1 [facility] 4 mg 2-19 capsule by ity of capsule 00:00: mouth 3 (three) Medical times Branch daily as needed for Muscle Spasms. tiZANidine 2021-08 Yes [id number] 4mg Take 1 [facility] 4 mg 2-19 capsule by ity of capsule 00:00: mouth 3 (three) Medical times Branch daily as needed for Muscle Spasms. tiZANidine 2021-08 Yes [id number] 4mg Take 1 [facility] 4 mg 2-19 capsule by ity of capsule 00:00: mouth 3 00 (three) Medical times Branch daily as needed for Muscle Spasms. tiZANidine 2021-08 Yes [id number] 4mg Take 1 [facility] 4 mg 2-19 capsule by ity of capsule 00:00: mouth 3 [place] 00 (three) Medical times Branch daily as needed for Muscle Spasms. tiZANidine 2021-08 Yes [id number] 4mg Take 1 [facility] 4 mg 2-19 capsule by ity of capsule 00:00: mouth 3 [place] 00 (three) Medical times Branch daily as needed for Muscle Spasms. tiZANidine 2021-08- No [id number] 4mg Take 1 Univers 4 mg 2-19 02-15 capsule by ity of capsule 00:00: 00:00 mouth 3 [place] 00 :00 (three) Medical times Branch daily as needed for Muscle Spasms. tiZANidine 2021-08- No [id number] 4mg Take 1 Univers 4 mg 2-19 02-15 capsule by ity of capsule 00:00: 00:00 mouth 3 [place] 00 :00 (three) Medical times Branch daily as needed for Muscle Spasms. HYDROcodone 2021-08 Yes [id number] 1{tbl} Take 1 Un cl[facility] -acetaminop 2-16 tablet by ity of hen (CloudJayCO) 00:00: mouth [place] 10-325 mg 00 every 6 Medical tablet (six) Branch hours as needed for Pain (scale 7-10). Indication s: acute pain HYDROcodone 2021-08 Yes 4647 1{tbl} Take 1 Un cl[facility] -acetaminop 2-16 tablet by ity of hen (CloudJayCO) 00:00: mouth [place] 10-325 mg 00 every 6 Medical tablet (six) Branch hours as needed for Pain (scale 7-10). Indication s: acute pain HYDROcodone 2021-08 Yes 4647 1{tbl} Take 1 Un cl[facility]ia -acetaminop 2-16 tablet by ity of hen ([place]) 00:00: mouth [place] 10-325 mg 00 every 6 Medical tablet (six) Branch hours as needed for Pain (scale 7-10). Indication s: acute pain HYDROcodone 2021-08 Yes 4647 1{tbl} Take 1 Un cl[facility] -acetaminop 2-16 tablet by ity of hen ([place]) 00:00: mouth [place] 10-325 mg 00 every 6 Medical tablet (six) Branch hours as needed for Pain (scale 7-10). Indication s: acute pain HYDROcodone 2021- Yes 4647 1{tbl} Take 1 Un [facility] -acetaminop 2-16 tablet by ity of hen (NORCO) 00:00: mouth [place] 10-325 mg 00 every 6 Medical tablet (six) Branch hours as needed for Pain (scale 7-10). Indication s: acute pain HYDROcodone 2021- Yes 4647 1{tbl} Take 1 Un [facility] -acetaminop 2-16 tablet by ity of hen (NORCO) 00:00: mouth [place] 10-325 mg 00 every 6 Medical tablet (six) Branch hours as needed for Pain (scale 7-10). Indication s: acute pain HYDROcodone 2021-08 Yes 4647 1{tbl} Take 1 Un [facility] -acetaminop 2-16 tablet by ity of hen (NORCO) 00:00: mouth [place] 10-325 mg 00 every 6 Medical tablet (six) Branch hours as needed for Pain (scale 7-10). Indication s: acute pain HYDROcodone 2021-08 Yes 4647 1{tbl} Take 1 Un [place] -acetaminop 2-16 tablet by ity of hen (NORCO) 00:00: mouth [place] 10-325 mg 00 every 6 Medical tablet (six) Branch hours as needed for Pain (scale 7-10). Indication s: acute pain HYDROcodone 2021-08 Yes 4647 1{tbl} Take 1 Un [place] -acetaminop 2-16 tablet by ity of hen (NORCO) 00:00: mouth [place] 10-325 mg 00 every 6 Medical tablet (six) Branch hours as needed for Pain (scale 7-10). Indication s: acute pain HYDROcodone 2021- Yes 4647 1{tbl} Take 1 Un [facility] -acetaminop 2-16 tablet by ity of hen (NORCO) 00:00: mouth [place] 10-325 mg 00 every 6 Medical tablet (six) Branch hours as needed for Pain (scale 7-10). Indication s: acute pain HYDROcodone 2021- Yes 4647 1{tbl} Take 1 Un [facility] -acetaminop 2-16 tablet by ity of hen (NORCO) 00:00: mouth [place] 10-325 mg 00 every 6 Medical tablet (six) Branch hours as needed for Pain (scale 7-10). Indication s: acute pain HYDROcodone 2021- Yes 4647 1{tbl} Take 1 Un [place] -acetaminop 2-16 tablet by ity of hen (NORCO) 00:00: mouth [place] 10-325 mg 00 every 6 Medical tablet (six) Branch hours as needed for Pain (scale 7-10). Indication s: acute pain HYDROcodone 2021- Yes 4647 1{tbl} Take 1 Un [facility] -acetaminop 2-16 tablet by ity of hen (NORCO) 00:00: mouth [place] 10-325 mg 00 every 6 Medical tablet (six) Branch hours as needed for Pain (scale 7-10). Indication s: acute pain HYDROcodone 2021-08 Yes 4647 1{tbl} Take 1 Un [place] -acetaminop 2-16 tablet by ity of hen (NORCO) 00:00: mouth [place] 10-325 mg 00 every 6 Medical tablet (six) Branch hours as needed for Pain (scale 7-10). Indication s: acute pain HYDROcodone 2021-08 Yes 4647 1{tbl} Take 1 Un [place] -acetaminop 2-16 tablet by ity of hen (NORCO) 00:00: mouth [place] 10-325 mg 00 every 6 Medical tablet (six) Branch hours as needed for Pain (scale 7-10). Indication s: acute pain HYDROcodone 2021-08 Yes 4647 1{tbl} Take 1 Un [place] -acetaminop 2-16 tablet by ity of hen ([facility]) 00:00: mouth [place] 10-325 mg 00 every 6 Medical tablet (six) Branch hours as needed for Pain (scale 7-10). Indication s: acute pain HYDROcodone 2021- Yes 4647 1{tbl} Take 1 [facility] -acetaminop 2-16 tablet by [facility] ([facility]) 00:00: mouth [place] 10-325 mg 00 every 6 Medical tablet (six) Branch hours as needed for Pain (scale 7-10). Indication s: acute pain HYDROcodone 2021- Yes 4647 1{tbl} Take 1 [facility] -acetaminop 2-16 tablet by [facility] ([facility]) 00:00: mouth [place] 10-325 mg 00 every 6 Medical tablet (six) Branch hours as needed for Pain (scale 7-10). Indication s: acute pain HYDROcodone 2021-08 Yes 4647 1{tbl} Take 1 [facility] -acetaminop 2-16 tablet by [facility] ([facility]) 00:00: mouth [place] 10-325 mg 00 every 6 Medical tablet (six) Branch hours as needed for Pain (scale 7-10). Indication s: acute pain HYDROcodone 2021-08 Yes 4647 1{tbl} Take 1 [facility] -acetaminop 2-16 tablet by [facility] ([facility]) 00:00: mouth [place] 10-325 mg 00 every 6 Medical tablet (six) Branch hours as needed for Pain (scale 7-10). Indication s: acute pain HYDROcodone 2021-08 Yes 4647 1{tbl} Take 1 [facility] -acetaminop 2-16 tablet by [facility] ([facility]) 00:00: mouth [place] 10-325 mg 00 every 6 Medical tablet (six) Branch hours as needed for Pain (scale 7-10). Indication s: acute pain HYDROcodone 2021-08 Yes 4647 1{tbl} Take 1 [facility] -acetaminop 2-16 tablet by [facility] ([facility]) 00:00: mouth [place] 10-325 mg 00 every 6 Medical tablet (six) Branch hours as needed for Pain (scale 7-10). Indication s: acute pain HYDROcodone 2021-08 Yes 4647 1{tbl} Take 1 [facility] -acetaminop 2-16 tablet by [facility] ([facility]) 00:00: mouth [place] 10-325 mg 00 every 6 Medical tablet (six) Branch hours as needed for Pain (scale 7-10). Indication s: acute pain HYDROcodone 2021- Yes 4647 1{tbl} Take 1 [facility] -acetaminop 2-16 tablet by [facility] ([facility]) 00:00: mouth [place] 10-325 mg 00 every 6 Medical tablet (six) Branch hours as needed for Pain (scale 7-10). Indication s: acute pain HYDROcodone 2021- Yes 4647 1{tbl} Take 1 [facility] -acetaminop 2-16 tablet by [facility] ([facility]) 00:00: mouth [place] 10-325 mg 00 every 6 Medical tablet (six) Branch hours as needed for Pain (scale 7-10). Indication s: acute pain HYDROcodone 2021-08 Yes 4647 1{tbl} Take 1 [facility] -acetaminop 2-16 tablet by [facility] ([facility]) 00:00: mouth [place] 10-325 mg 00 every 6 Medical tablet (six) Branch hours as needed for Pain (scale 7-10). Indication s: acute pain HYDROcodone 2021-08 Yes 4647 1{tbl} Take 1 [facility] -acetaminop 2-16 tablet by [facility] ([facility]) 00:00: mouth [place] 10-325 mg 00 every 6 Medical tablet (six) Branch hours as needed for Pain (scale 7-10). Indication s: acute pain HYDROcodone 2021-08 Yes 4647 1{tbl} Take 1 [facility] -acetaminop 2-16 tablet by [facility] ([facility]) 00:00: mouth [place] 10-325 mg 00 every 6 Medical tablet (six) Branch hours as needed for Pain (scale 7-10). Indication s: acute pain HYDROcodone 2021-08 Yes 4647 1{tbl} Take 1 [facility] -acetaminop 2-16 tablet by [facility] ([facility]) 00:00: mouth [place] 10-325 mg 00 every 6 Medical tablet (six) Branch hours as needed for Pain (scale 7-10). Indication s: acute pain HYDROcodone 2021-08 Yes 4647 1{tbl} Take 1 [facility] -acetaminop 2-16 tablet by [facility] ([facility]) 00:00: mouth [place] 10-325 mg 00 every 6 Medical tablet (six) Branch hours as needed for Pain (scale 7-10). Indication s: acute pain HYDROcodone 2021-08 Yes 4647 1{tbl} Take 1 [facility] -acetaminop 2-16 tablet by [facility] ([facility]) 00:00: mouth [place] 10-325 mg 00 every 6 Medical tablet (six) Branch hours as needed for Pain (scale 7-10). Indication s: acute pain HYDROcodone 2021-08 Yes 4647 1{tbl} Take 1 [facility] -acetaminop 2-16 tablet by [facility] ([facility]) 00:00: mouth [place] 10-325 mg 00 every 6 Medical tablet (six) Branch hours as needed for Pain (scale 7-10). Indication s: acute pain HYDROcodone 2021-08 Yes 4647 1{tbl} Take 1 [facility] -acetaminop 2-16 tablet by [facility] hen ([facility]) 00:00: mouth [place] 10-325 mg 00 every 6 Medical tablet (six) Branch hours as needed for Pain (scale 7-10). Indication s: acute pain HYDROcodone 2021-08 Yes 4647 1{tbl} Take 1 [facility] [place] -acetaminop 2-16 tablet by [facility] ([facility]) 00:00: mouth [place] 10-325 mg 00 every 6 Medical tablet (six) Branch hours as needed for Pain (scale 7-10). Indication s: acute pain HYDROcodone 2021-08- No 4647 1{tbl} Take 1 [facility] nivers -acetaminop 2-16 04-13 tablet by [facility] ([facility]) 00:00: 00:00 [place] 10-325 mg 00 :00 every 6 Medical tablet (six) Branch hours as needed for Pain (scale 7-10). Indication s: acute pain HYDROcodone 2021-08- No 4647 1{tbl} Take 1 [facility] nivers -acetaminop 2-16 04-13 tablet by [facility] ([facility]) 00:00: 00:00 [place] 10-325 mg 00 :00 every 6 Medical tablet (six) Branch hours as needed for Pain (scale 7-10). Indication s: acute pain HYDROcodone 2021-08- No 4647 1{tbl} Take 1 [facility] n[facility] -acetaminop 2-16 04-13 tablet by [facility] ([facility]) 00:00: 00:00 [place] 10-325 mg 00 :00 every 6 Medical tablet (six) Branch hours as needed for Pain (scale 7-10). Indication s: acute pain HYDROcodone 2021-08- No 4647 1{tbl} Take 1 [facility] nivers -acetaminop 2-12 12-20 tablet by [facility] ([facility]) 00:00: 05:59 mouth [place] 10-325 mg 00 :00 every 6 Medical tablet (six) Branch hours as needed for Pain (scale 7-10) for up to 7 days. Indication s: acute pain HYDROcodone 2021-08- No 4647 1{tbl} Take 1 [facility] nivers -acetaminop 2-12 12-20 tablet by [facility] ([place]) 00:00: 05:59 mouth [place] 10-325 mg 00 :00 every 6 Medical tablet (six) Branch hours as needed for Pain (scale 7-10) for up to 7 days. Indication s: acute pain HYDROcodone 2021-08 No 4647 1{tbl} Take 1 [facility] nivers -acetaminop 2-12 12-20 tablet by [facility] ([place]) 00:00: 05:59 mouth [place] 10-325 mg 00 :00 every 6 Medical tablet (six) Branch hours as needed for Pain (scale 7-10) for up to 7 days. Indication s: acute pain HYDROcodone 2021-08 No 4647 1{tbl} Take 1 [facility] -acetaminop 2-12 12-16 tablet by [facility] ([place]) 00:00: 00:00 mouth [place] 10-325 mg 00 :00 every 6 Medical tablet (six) Branch hours as needed for Pain (scale 7-10) for up to 7 days. Indication s: acute pain budesonide- 2021-08 Yes 2{puff} Inhale 2 [facility] formoteroL 2-06 Puffs. ity of 160-4.5 18:45: [place] mcg/actuati 02 Medical on inhaler Branch FLUTICASONE 2021-08 Yes 50ug Use 50 mcg [facility] PROPIONATE 2-06 in each ity of NASAL 18:45: nostril [place] 02 once daily Medical as needed Branch for Other (allergies ). ALBUTEROL 2021-08 Yes 8.5mg Inhale 8.5 U nivers INHALE 2-06 mg every 4 ity of 18:45: (four) [place] 02 hours as Medical needed Branch (wheezing) . budesonide- 2021-08 Yes 2{puff} Inhale 2 [facility] formoteroL 2-06 Puffs. ity of 160-4.5 18:45: [place] mcg/actuati 02 Medical on inhaler Branch FLUTICASONE 2021-08 Yes 50ug Use 50 mcg [facility] PROPIONATE 2-06 in each ity of NASAL 18:45: nostril [place] 02 once daily Medical as needed Branch for Other (allergies ). ALBUTEROL 2021-08 Yes 8.5mg Inhale 8.5 U n[facility] INHALE 2-06 mg every 4 ity of 18:45: (four) [place] 02 hours as Medical needed Branch (wheezing) . budesonide- 2021-08 Yes 2{puff} Inhale 2 [facility] formoteroL 2-06 Puffs. ity of 160-4.5 18:45: [place] mcg/actuati 02 Medical on inhaler Branch FLUTICASONE 2021-08 Yes 50ug Use 50 mcg [facility] PROPIONATE 2-06 in each ity of NASAL 18:45: nostril [place] 02 once daily Medical as needed Branch for Other (allergies ). ALBUTEROL 2021-08 Yes 8.5mg Inhale 8.5 U [facility]ivers INHALE 2-06 mg every 4 ity of 18:45: (four) [place] 02 hours as Medical needed Branch (wheezing) . budesonide- 2021-08 Yes 2{puff} Inhale 2 [facility] formoteroL 2-06 Puffs. ity of 160-4.5 18:45: [place] mcg/actuati 02 Medical on inhaler Branch FLUTICASONE 2021-08 Yes 50ug Use 50 mcg [facility] PROPIONATE 2-06 in each ity of NASAL 18:45: nostril [place] 02 once daily Medical as needed Branch for Other (allergies ). ALBUTEROL 2021-08 Yes 8.5mg Inhale 8.5 U n[facility] INHALE 2-06 mg every 4 ity of 18:45: (four) [place] 02 hours as Medical needed Branch (wheezing) . budesonide- 2021-08 Yes 2{puff} Inhale 2 [facility] formoteroL 2-06 Puffs. ity of 160-4.5 18:45: [place] mcg/actuati 02 Medical on inhaler Branch FLUTICASONE 2021-08 Yes 50ug Use 50 mcg [facility] PROPIONATE 2-06 in each ity of NASAL 18:45: nostril [place] 02 once daily Medical as needed Branch for Other (allergies ). ALBUTEROL 2021-08 Yes 8.5mg Inhale 8.5 U nivers INHALE 2-06 mg every 4 ity of 18:45: (four) [place] 02 hours as Medical needed Branch (wheezing) . budesonide- 2021-08 Yes 2{puff} Inhale 2 [facility] formoteroL 2-06 Puffs. ity of 160-4.5 18:45: [place] mcg/actuati 02 Medical on inhaler Branch FLUTICASONE 2021-08 Yes 50ug Use 50 mcg [facility] PROPIONATE 2-06 in each ity of NASAL 18:45: nostril [place] 02 once daily Medical as needed Branch for Other (allergies ). ALBUTEROL 2021-08 Yes 8.5mg Inhale 8.5 U nivers INHALE 2-06 mg every 4 ity of 18:45: (four) [place] 02 hours as Medical needed Branch (wheezing) . budesonide- 2021-08 Yes 2{puff} Inhale 2 [facility] formoteroL 2-06 Puffs. ity of 160-4.5 18:45: [place] mcg/actuati 02 Medical on inhaler Branch FLUTICASONE 2021-08 Yes 50ug Use 50 mcg [facility] PROPIONATE 2-06 in each ity of NASAL 18:45: nostril [place] 02 once daily Medical as needed Branch for Other (allergies ). ALBUTEROL 2021-08 Yes 8.5mg Inhale 8.5 U nivers INHALE 2-06 mg every 4 ity of 18:45: (four) [place] 02 hours as Medical needed Branch (wheezing) . budesonide- 2021-08 Yes 2{puff} Inhale 2 [facility] formoteroL 2-06 Puffs. ity of 160-4.5 18:45: [place] mcg/actuati 02 Medical on inhaler Branch FLUTICASONE 2021-08 Yes 50ug Use 50 mcg [facility] PROPIONATE 2-06 in each ity of NASAL 18:45: nostril [place] 02 once daily Medical as needed Branch for Other (allergies ). ALBUTEROL 2021-08 Yes 8.5mg Inhale 8.5 U nivers INHALE 2-06 mg every 4 ity of 18:45: (four) [place] 02 hours as Medical needed Branch (wheezing) . budesonide- 2021-08 Yes 2{puff} Inhale 2 [facility] formoteroL 2-06 Puffs. ity of 160-4.5 18:45: [place] mcg/actuati 02 Medical on inhaler Branch FLUTICASONE 2021-08 Yes 50ug Use 50 mcg [facility] PROPIONATE 2-06 in each ity of NASAL 18:45: nostril [place] 02 once daily Medical as needed Branch for Other (allergies ). ALBUTEROL 2021-08 Yes 8.5mg Inhale 8.5 U nivers INHALE 2-06 mg every 4 ity of 18:45: (four) [place] 02 hours as Medical needed Branch (wheezing) . budesonide- 2021-08 Yes 2{puff} Inhale 2 [facility] formoteroL 2-06 Puffs. ity of 160-4.5 18:45: [place] mcg/actuati 02 Medical on inhaler Branch FLUTICASONE 2021-08 Yes 50ug Use 50 mcg [facility] PROPIONATE 2-06 in each ity of NASAL 18:45: nostril [place] 02 once daily Medical as needed Branch for Other (allergies ). ALBUTEROL 2021-08 Yes 8.5mg Inhale 8.5 U nivers INHALE 2-06 mg every 4 ity of 18:45: (four) [place] 02 hours as Medical needed Branch (wheezing) . budesonide- 2021-08 Yes 2{puff} Inhale 2 [facility] formoteroL 2-06 Puffs. ity of 160-4.5 18:45: [place] mcg/actuati 02 Medical on inhaler Branch FLUTICASONE 2021-08 Yes 50ug Use 50 mcg [facility] PROPIONATE 2-06 in each ity of NASAL 18:45: nostril [place] 02 once daily Medical as needed Branch for Other (allergies ). ALBUTEROL 2021-08 Yes 8.5mg Inhale 8.5 U nivers INHALE 2-06 mg every 4 ity of 18:45: (four) [place] 02 hours as Medical needed Branch (wheezing) . budesonide- 2021-08 Yes 2{puff} Inhale 2 [facility] formoteroL 2-06 Puffs. ity of 160-4.5 18:45: [place] mcg/actuati 02 Medical on inhaler Branch FLUTICASONE 2021-08 Yes 50ug Use 50 mcg [facility] PROPIONATE 2-06 in each ity of NASAL 18:45: nostril [place] 02 once daily Medical as needed Branch for Other (allergies ). ALBUTEROL 2021-08 Yes 8.5mg Inhale 8.5 U nivers INHALE 2-06 mg every 4 ity of 18:45: (four) [place] 02 hours as Medical needed Branch (wheezing) . budesonide- 2021-08 Yes 2{puff} Inhale 2 [facility] formoteroL 2-06 Puffs. ity of 160-4.5 18:45: [place] mcg/actuati 02 Medical on inhaler Branch FLUTICASONE 2021-08 Yes 50ug Use 50 mcg [facility] PROPIONATE 2-06 in each ity of NASAL 18:45: nostril [place] 02 once daily Medical as needed Branch for Other (allergies ). ALBUTEROL 2021-08 Yes 8.5mg Inhale 8.5 U nivers INHALE 2-06 mg every 4 ity of 18:45: (four) [place] 02 hours as Medical needed Branch (wheezing) . budesonide- 2021-08 Yes 2{puff} Inhale 2 [facility] formoteroL 2-06 Puffs. ity of 160-4.5 18:45: [place] mcg/actuati 02 Medical on inhaler Branch FLUTICASONE 2021-08 Yes 50ug Use 50 mcg [facility] PROPIONATE 2-06 in each ity of NASAL 18:45: nostril [place] 02 once daily Medical as needed Branch for Other (allergies ). ALBUTEROL 2021-08 Yes 8.5mg Inhale 8.5 U nivers INHALE 2-06 mg every 4 ity of 18:45: (four) [place] 02 hours as Medical needed Branch (wheezing) . budesonide- 2021-08 Yes 2{puff} Inhale 2 [facility] formoteroL 2-06 Puffs. ity of 160-4.5 18:45: [place] mcg/actuati 02 Medical on inhaler Branch FLUTICASONE 2021-08 Yes 50ug Use 50 mcg [facility] PROPIONATE 2-06 in each ity of NASAL 18:45: nostril [place] 02 once daily Medical as needed Branch for Other (allergies ). ALBUTEROL 2021-08 Yes 8.5mg Inhale 8.5 U nivers INHALE 2-06 mg every 4 ity of 18:45: (four) [place] 02 hours as Medical needed Branch (wheezing) . budesonide- 2021-08 Yes 2{puff} Inhale 2 [facility] formoteroL 2-06 Puffs. ity of 160-4.5 18:45: [place] mcg/actuati 02 Medical on inhaler Branch FLUTICASONE 2021-08 Yes 50ug Use 50 mcg [facility] PROPIONATE 2-06 in each ity of NASAL 18:45: nostril [place] 02 once daily Medical as needed Branch for Other (allergies ). ALBUTEROL 2021-08 Yes 8.5mg Inhale 8.5 U nivers INHALE 2-06 mg every 4 ity of 18:45: (four) [place] 02 hours as Medical needed Branch (wheezing) . budesonide- 2021-08 Yes 2{puff} Inhale 2 [facility] formoteroL 2-06 Puffs. ity of 160-4.5 18:45: [place] mcg/actuati 02 Medical on inhaler Branch FLUTICASONE 2021-08 Yes 50ug Use 50 mcg [facility] PROPIONATE 2-06 in each ity of NASAL 18:45: nostril [place] 02 once daily Medical as needed Branch for Other (allergies ). ALBUTEROL 2021-08 Yes 8.5mg Inhale 8.5 U nivers INHALE 2-06 mg every 4 ity of 18:45: (four) [place] 02 hours as Medical needed Branch (wheezing) . budesonide- 2021-08 Yes 2{puff} Inhale 2 [facility] formoteroL 2-06 Puffs. ity of 160-4.5 18:45: [place] mcg/actuati 02 Medical on inhaler Branch FLUTICASONE 2021-08 Yes 50ug Use 50 mcg [facility] PROPIONATE 2-06 in each ity of NASAL 18:45: nostril [place] 02 once daily Medical as needed Branch for Other (allergies ). ALBUTEROL 2021-08 Yes 8.5mg Inhale 8.5 U nivers INHALE 2-06 mg every 4 ity of 18:45: (four) [place] 02 hours as Medical needed Branch (wheezing) . budesonide- 2021-08 Yes 2{puff} Inhale 2 [facility] formoteroL 2-06 Puffs. ity of 160-4.5 18:45: [place] mcg/actuati 02 Medical on inhaler Branch FLUTICASONE 2021-08 Yes 50ug Use 50 mcg [facility] PROPIONATE 2-06 in each ity of NASAL 18:45: nostril [place] 02 once daily Medical as needed Branch for Other (allergies ). ALBUTEROL 2021-08 Yes 8.5mg Inhale 8.5 U nivers INHALE 2-06 mg every 4 ity of 18:45: (four) [place] 02 hours as Medical needed Branch (wheezing) . budesonide- 2021-08 Yes 2{puff} Inhale 2 [facility] formoteroL 2-06 Puffs. ity of 160-4.5 18:45: [place] mcg/actuati 02 Medical on inhaler Branch FLUTICASONE 2021-08 Yes 50ug Use 50 mcg [facility] PROPIONATE 2-06 in each ity of NASAL 18:45: nostril [place] 02 once daily Medical as needed Branch for Other (allergies ). ALBUTEROL 2021-08 Yes 8.5mg Inhale 8.5 U nivers INHALE 2-06 mg every 4 ity of 18:45: (four) [place] 02 hours as Medical needed Branch (wheezing) . budesonide- 2021-08 Yes 2{puff} Inhale 2 [facility] formoteroL 2-06 Puffs. ity of 160-4.5 18:45: [place] mcg/actuati 02 Medical on inhaler Branch FLUTICASONE 2021-08 Yes 50ug Use 50 mcg [facility] PROPIONATE 2-06 in each ity of NASAL 18:45: nostril [place] 02 once daily Medical as needed Branch for Other (allergies ). ALBUTEROL 2021-08 Yes 8.5mg Inhale 8.5 U nivers INHALE 2-06 mg every 4 ity of 18:45: (four) [place] 02 hours as Medical needed Branch (wheezing) . budesonide- 2021-08 Yes 2{puff} Inhale 2 [facility] formoteroL 2-06 Puffs. ity of 160-4.5 18:45: [place] mcg/actuati 02 Medical on inhaler Branch FLUTICASONE 2021-08 Yes 50ug Use 50 mcg [facility] PROPIONATE 2-06 in each ity of NASAL 18:45: nostril [place] 02 once daily Medical as needed Branch for Other (allergies ). ALBUTEROL 2021-08 Yes 8.5mg Inhale 8.5 U nivers INHALE 2-06 mg every 4 ity of 18:45: (four) [place] 02 hours as Medical needed Branch (wheezing) . budesonide- 2021-08 Yes 2{puff} Inhale 2 [facility] formoteroL 2-06 Puffs. ity of 160-4.5 18:45: [place] mcg/actuati 02 Medical on inhaler Branch FLUTICASONE 2021-08 Yes 50ug Use 50 mcg [facility] PROPIONATE 2-06 in each ity of NASAL 18:45: nostril [place] 02 once daily Medical as needed Branch for Other (allergies ). ALBUTEROL 2021-08 Yes 8.5mg Inhale 8.5 U nivers INHALE 2-06 mg every 4 ity of 18:45: (four) [place] 02 hours as Medical needed Branch (wheezing) . budesonide- 2021-08 Yes 2{puff} Inhale 2 [facility] formoteroL 2-06 Puffs. ity of 160-4.5 18:45: [place] mcg/actuati 02 Medical on inhaler Branch FLUTICASONE 2021-08 Yes 50ug Use 50 mcg [facility] PROPIONATE 2-06 in each ity of NASAL 18:45: nostril [place] 02 once daily Medical as needed Branch for Other (allergies ). ALBUTEROL 2021-08 Yes 8.5mg Inhale 8.5 U nivers INHALE 2-06 mg every 4 ity of 18:45: (four) [place] 02 hours as Medical needed Branch (wheezing) . budesonide- 2021-08 Yes 2{puff} Inhale 2 [facility] formoteroL 2-06 Puffs. ity of 160-4.5 18:45: [place] mcg/actuati 02 Medical on inhaler Branch FLUTICASONE 2021-08 Yes 50ug Use 50 mcg [facility] PROPIONATE 2-06 in each ity of NASAL 18:45: nostril [place] 02 once daily Medical as needed Branch for Other (allergies ). ALBUTEROL 2021-08 Yes 8.5mg Inhale 8.5 U nivers INHALE 2-06 mg every 4 ity of 18:45: (four) [place] 02 hours as Medical needed Branch (wheezing) . budesonide- 2021-08 Yes 2{puff} Inhale 2 [facility] formoteroL 2-06 Puffs. ity of 160-4.5 18:45: [place] mcg/actuati 02 Medical on inhaler Branch FLUTICASONE 2021-08 Yes 50ug Use 50 mcg [facility] PROPIONATE 2-06 in each ity of NASAL 18:45: nostril [place] 02 once daily Medical as needed Branch for Other (allergies ). ALBUTEROL 2021-08 Yes 8.5mg Inhale 8.5 U nivers INHALE 2-06 mg every 4 ity of 18:45: (four) [place] 02 hours as Medical needed Branch (wheezing) . budesonide- 2021-08 Yes 2{puff} Inhale 2 [facility] formoteroL 2-06 Puffs. ity of 160-4.5 18:45: [place] mcg/actuati 02 Medical on inhaler Branch FLUTICASONE 2021-08 Yes 50ug Use 50 mcg [facility] PROPIONATE 2-06 in each ity of NASAL 18:45: nostril [place] 02 once daily Medical as needed Branch for Other (allergies ). ALBUTEROL 2021-08 Yes 8.5mg Inhale 8.5 U nivers INHALE 2-06 mg every 4 ity of 18:45: (four) [place] 02 hours as Medical needed Branch (wheezing) . budesonide- 2021-08 Yes 2{puff} Inhale 2 [facility] formoteroL 2-06 Puffs. ity of 160-4.5 18:45: [place] mcg/actuati 02 Medical on inhaler Branch FLUTICASONE 2021-08 Yes 50ug Use 50 mcg [facility] PROPIONATE 2-06 in each ity of NASAL 18:45: nostril [place] 02 once daily Medical as needed Branch for Other (allergies ). ALBUTEROL 2021-08 Yes 8.5mg Inhale 8.5 U nivers INHALE 2-06 mg every 4 ity of 18:45: (four) [place] 02 hours as Medical needed Branch (wheezing) . budesonide- 2021-08 Yes 2{puff} Inhale 2 [facility] formoteroL 2-06 Puffs. ity of 160-4.5 18:45: [place] mcg/actuati 02 Medical on inhaler Branch FLUTICASONE 2021-08 Yes 50ug Use 50 mcg [facility] PROPIONATE 2-06 in each ity of NASAL 18:45: nostril [place] 02 once daily Medical as needed Branch for Other (allergies ). ALBUTEROL 2021-08 Yes 8.5mg Inhale 8.5 U nivers INHALE 2-06 mg every 4 ity of 18:45: (four) [place] 02 hours as Medical needed Branch (wheezing) . budesonide- 2021-08 Yes 2{puff} Inhale 2 [facility] formoteroL 2-06 Puffs. ity of 160-4.5 18:45: [place] mcg/actuati 02 Medical on inhaler Branch FLUTICASONE 2021-08 Yes 50ug Use 50 mcg [facility] PROPIONATE 2-06 in each ity of NASAL 18:45: nostril [place] 02 once daily Medical as needed Branch for Other (allergies ). ALBUTEROL 2021-08 Yes 8.5mg Inhale 8.5 U nivers INHALE 2-06 mg every 4 ity of 18:45: (four) [place] 02 hours as Medical needed Branch (wheezing) . budesonide- 2021-08 Yes 2{puff} Inhale 2 [facility] formoteroL 2-06 Puffs. ity of 160-4.5 18:45: [place] mcg/actuati 02 Medical on inhaler Branch FLUTICASONE 2021-08 Yes 50ug Use 50 mcg [facility] PROPIONATE 2-06 in each ity of NASAL 18:45: nostril [place] 02 once daily Medical as needed Branch for Other (allergies ). ALBUTEROL 2021-08 Yes 8.5mg Inhale 8.5 U nivers INHALE 2-06 mg every 4 ity of 18:45: (four) [place] 02 hours as Medical needed Branch (wheezing) . budesonide- 2021-08 Yes 2{puff} Inhale 2 [facility] formoteroL 2-06 Puffs. ity of 160-4.5 18:45: [place] mcg/actuati 02 Medical on inhaler Branch FLUTICASONE 2021-08 Yes 50ug Use 50 mcg [facility] PROPIONATE 2-06 in each ity of NASAL 18:45: nostril [place] 02 once daily Medical as needed Branch for Other (allergies ). ALBUTEROL 2021-08 Yes 8.5mg Inhale 8.5 U nivers INHALE 2-06 mg every 4 ity of 18:45: (four) [place] 02 hours as Medical needed Branch (wheezing) . budesonide- 2021-08 Yes 2{puff} Inhale 2 [facility] formoteroL 2-06 Puffs. ity of 160-4.5 18:45: [place] mcg/actuati 02 Medical on inhaler Branch FLUTICASONE 2021-08 Yes 50ug Use 50 mcg [facility] PROPIONATE 2-06 in each ity of NASAL 18:45: nostril [place] 02 once daily Medical as needed Branch for Other (allergies ). ALBUTEROL 2021-08 Yes 8.5mg Inhale 8.5 U nivers INHALE 2-06 mg every 4 ity of 18:45: (four) [place] 02 hours as Medical needed Branch (wheezing) . budesonide- 2021-08 Yes 2{puff} Inhale 2 [facility] formoteroL 2-06 Puffs. ity of 160-4.5 18:45: [place] mcg/actuati 02 Medical on inhaler Branch FLUTICASONE 2021-08 Yes 50ug Use 50 mcg [facility] PROPIONATE 2-06 in each ity of NASAL 18:45: nostril [place] 02 once daily Medical as needed Branch for Other (allergies ). ALBUTEROL 2021-08 Yes 8.5mg Inhale 8.5 U nivers INHALE 2-06 mg every 4 ity of 18:45: (four) [place] 02 hours as Medical needed Branch (wheezing) . budesonide- 2021-08 Yes 2{puff} Inhale 2 [facility] formoteroL 2-06 Puffs. ity of 160-4.5 18:45: [place] mcg/actuati 02 Medical on inhaler Branch FLUTICASONE 2021-08 Yes 50ug Use 50 mcg [facility] PROPIONATE 2-06 in each ity of NASAL 18:45: nostril [place] 02 once daily Medical as needed Branch for Other (allergies ). ALBUTEROL 2021-08 Yes 8.5mg Inhale 8.5 U nivers INHALE 2-06 mg every 4 ity of 18:45: (four) [place] 02 hours as Medical needed Branch (wheezing) . budesonide- 2021-08 Yes 2{puff} Inhale 2 [facility] formoteroL 2-06 Puffs. ity of 160-4.5 18:45: [place] mcg/actuati 02 Medical on inhaler Branch FLUTICASONE 2021-08 Yes 50ug Use 50 mcg [facility] PROPIONATE 2-06 in each ity of NASAL 18:45: nostril [place] 02 once daily Medical as needed Branch for Other (allergies ). ALBUTEROL 2021-08 Yes 8.5mg Inhale 8.5 U nivers INHALE 2-06 mg every 4 ity of 18:45: (four) [place] 02 hours as Medical needed Branch (wheezing) . enoxaparin 2021-08 Yes 40mg 40 mg, [facility] (LOVENOX) 2-06 Subcutaneo ity of injection 15:00: us, Q24H, [place] 40 mg 00 First dose Medical on Mon Branch 07/12/22 at 0900, Until Discontinu ed, Routine docusate 2021-08 Yes 100mg 100 mg, [facility] (COLACE) 2-06 Oral, [place] of capsule 100 15:00: [place], [place] 00 First dose [facility] on [facility] Branch 07/12/22 at 0900, Until Discontinu ed, Routine enoxaparin 2021-08 Yes 40mg 40 mg, [facility] (LOVENOX) 2-06 Subcutaneo ity of injection 15:00: us, Q24H, [place] 40 mg 00 First dose Medical on [facility] Branch 07/12/22 at 0900, Until Discontinu ed, Routine docusate 2021-08 Yes 100mg 100 mg, Un[facility] rs (COLACE) 2-06 Oral, ity of capsule 100 15:00: DAILY, [place] mg 00 First dose Medical on [facility] Branch 07/12/22 at 0900, Until Discontinu ed, Routine budesonide- 2021-08 Yes 2{puff} Inhale 2 [facility] formoteroL 2-06 Puffs. ity of 160-4.5 14:45: [place] mcg/actuati 00 Medical on inhaler Branch FLUTICASONE 2021-08 Yes 50ug Use 50 mcg [facility] PROPIONATE 2-06 in each ity of NASAL 14:45: nostril [place] 00 once daily Medical as needed Branch for Other (allergies ). ALBUTEROL 2021-08 Yes 8.5mg Inhale 8.5 U nivers INHALE 2-06 mg every 4 ity of 14:45: (four) [place] 00 hours as Medical needed Branch (wheezing) . levothyroxi 2021-08 Yes 137ug 137 mcg, U nivers ne 2-06 Oral, ity of (SYNTHROID) 03:30: Q24H, [place] tablet 137 00 First dose Med ical mcg on [facility] Branch 07/11/22 at 2130, Until Discontinu ed, Routine levothyroxi 2021-08 Yes 137ug 137 mcg, U nivers ne 2-06 Oral, ity of (SYNTHROID) 03:30: Q24H, [place] tablet 137 00 First dose Med ical mcg on [facility] 07/11/22 at 2130, Until Discontinu ed, Routine pantoprazol 2021-08 Yes 40mg 40 mg, Univ ers e 2-06 Oral, QHS, ity of (PROTONIX) 03:00: [place] dose [place] tablet 00 on [facility] 40 mg 07/11/22 at [place] 2100, Until Discontinu ed, Routine pantoprazol 2021-08 Yes 40mg 40 mg, Univ ers e 2-06 Oral, QHS, ity of (PROTONIX) 03:00: [place] dose [place] tablet 00 on [facility] 40 mg 07/11/22 at [place] 2100, Until Discontinu ed, Routine FLUoxetine 2021-08 Yes 10mg 10 mg, Unive rs (PROZAC) 2-06 Oral, ity of capsule 10 02:30: DAILY, [place] mg 00 First dose Medical (after [place] last modificati on) on [facility] 07/11/22 at 2030, Until Discontinu ed FLUoxetine 2021-08 Yes 10mg 10 mg, Unive rs (PROZAC) 2-06 Oral, ity of capsule 10 02:30: DAILY, [place] mg 00 First dose Medical (after [place] last modificati on) on [facility] 07/11/22 at 2030, Until Discontinu ed pregabalin 2021-08 Yes 150mg 150 mg, Uni vers (LYRICA) 2-06 Oral, TID, ity o f capsule 150 02:00: First dose [place] mg 00 on [facility] 07/11/22 at [place] 1999, Until Discontinu ed, Routine pregabalin 2021-08 Yes 150mg 150 mg, Uni vers (LYRICA) 2-06 Oral, TID, ity o f capsule 150 02:00: First dose [place] mg 00 on [facility] 07/11/22 at [place] 1999, Until Discontinu ed, Routine tiZANidine 2021-08- No [id number] 4mg Take 1 Univers 4 mg tablet 09-12- tablet by it y of 00:00: 05:59 mouth in [place] 00 :00 the Medical morning Branch and 1 tablet at noon and 1 tablet in the evening. Do all this for 21 days. tiZANidine 2021-08- No [id number] 4mg Take 1 Univers 4 mg tablet 09-12 tablet by it y of 00:00: 05:59 mouth in [place] 00 :00 the Medical morning Branch and 1 tablet at noon and 1 tablet in the evening. Do all this for 21 days. tiZANidine 2021-08- No [id number] 4mg Take 1 Univers 4 mg tablet 09-12 tablet by it y of 00:00: 05:59 mouth in [place] 00 :00 the Medical morning Branch and 1 tablet at noon and 1 tablet in the evening. Do all this for 21 days. tiZANidine 2021-08- No [id number] 4mg Take 1 Univers 4 mg tablet 09-12 tablet by it y of 00:00: 05:59 mouth in [place] 00 :00 the Medical morning Branch and 1 tablet at noon and 1 tablet in the evening. Do all this for 21 days. tiZANidine 2021-08- No [id number] 4mg Take 1 Univers 4 mg tablet 09-12 tablet by it y of 00:00: 05:59 mouth in [place] 00 :00 the Medical morning Branch and 1 tablet at noon and 1 tablet in the evening. Do all this for 21 days. tiZANidine 2021-08- No [id number] 4mg Take 1 Univers 4 mg tablet 09-12 tablet by it y of 00:00: 05:59 mouth in [place] 00 :00 the Medical morning Branch and 1 tablet at noon and 1 tablet in the evening. Do all this for 21 days. tiZANidine 2021-08- No [id number] 4mg Take 1 Univers 4 mg tablet 09-12 tablet by it y of 00:00: 05:59 mouth in [place] 00 :00 the Medical morning Branch and 1 tablet at noon and 1 tablet in the evening. Do all this for 21 days. tiZANidine 2021-08- No [id number] 4mg Take 1 Univers 4 mg tablet 09-12 tablet by it y of 00:00: 05:59 mouth in [place] 00 :00 the Medical morning Branch and 1 tablet at noon and 1 tablet in the evening. Do all this for 21 days. tiZANidine 2021-08- No [id number] 4mg Take 1 Univers 4 mg tablet 09-12 tablet by it y of 00:00: 05:59 mouth in [place] 00 :00 the [facility] and 1 tablet at noon and 1 tablet in the evening. Do all this for 21 days. sennosides 2021-08- No [id number] 8.6mg Take 1 Univers 8.6 mg 2-01 16- tablet by ity of tablet 00:00: 05:59 mouth in [place] 00 :00 Psychiatric for 15 days. sennosides 2021-08- No [id number] 8.6mg Take 1 Univers 8.6 mg -07-28 tablet by ity of tablet 00:00: 05:59 mouth in [place] 00 :00 Psychiatric for 15 days. sennosides 2021-08- No [id number] 8.6mg Take 1 Univers 8.6 mg -01 16- tablet by ity of tablet 00:00: 05:59 mouth in [place] 00 :00 Psychiatric for 15 days. sennosides 2021-08- No [id number] 8.6mg Take 1 Univers 8.6 mg -07-28 tablet by ity of tablet 00:00: 05:59 mouth in [place] 00 :00 Psychiatric for 15 days. sennosides 2021-08- No [id number] 8.6mg Take 1 Univers 8.6 mg 2-01 16- tablet by ity of tablet 00:00: 05:59 mouth in [place] 00 :00 Psychiatric for 15 days. sennosides 2021-08- No [id number] 8.6mg Take 1 Univers 8.6 mg 2-01 16-22 tablet by ity of tablet 00:00: 05:59 mouth in [place] 00 :00 Psychiatric for 15 days. sennosides 2021-08- No [id number] 8.6mg Take 1 Univers 8.6 mg 2-01 16-22 tablet by ity of tablet 00:00: 05:59 mouth in [place] 00 :00 Psychiatric for 15 days. sennosides 2021-08- No [id number] 8.6mg Take 1 Univers 8.6 mg 2- 12-22 tablet by ity of tablet 00:00: 05:59 mouth in [place] 00 :00 the [facility] morning Branch for 15 days. sennosides 2021-08- No [id number] 8.6mg Take 1 Univers 8.6 mg 2- 12-22 tablet by ity of tablet 00:00: 05:59 mouth in [place] 00 :00 the [facility] Branch for 15 days. HYDROcodone 2021-08- No [id number] 1{tbl} Take 1 U nivers -acetaminop 2- 12-14 tablet by it y of hen 5-325 00:00: 05:59 mouth [place] mg tablet 00 :00 every 4 Medical (four) Branch hours as needed for Pain (scale 7-10) for up to 7 days. Indication s: acute pain docusate 2021-08- No [id number] 100mg Take 1 Univers 100 mg 2- 12-14 capsule by ity of capsule 00:00: 05:59 mouth in [place] 00 :00 the [facility] Branch and 1 capsule in the evening. Do all this for 7 days. docusate 2021-08- No [id number] 100mg Take 1 Univers 100 mg 2- 12-14 capsule by ity of capsule 00:00: 05:59 mouth in [place] 00 :00 the [facility] Branch and 1 capsule in the evening. Do all this for 7 days. HYDROcodone 2021-08- No [id number] 1{tbl} Take 1 U nivers -acetaminop 2- 12-14 tablet by it y of hen (NORCO) 00:00: 05:59 mouth [place] 10-325 mg 00 :00 every 4 Medical tablet (four) Branch hours as needed for Pain (scale 7-10) for up to 7 days. Indication s: acute pain docusate 2021-08- No [id number] 100mg Take 1 Univers 100 mg 2- 12-14 capsule by ity of capsule 00:00: 05:59 mouth in [place] 00 :00 the [facility] morning Branch and 1 capsule in the evening. Do all this for 7 days. HYDROcodone 2021-08- No [id number] 1{tbl} Take 1 U nivers -acetaminop 09-12-14 tablet by it y of hen (NORCO) 00:00: 05:59 mouth [place] 10-325 mg 00 :00 every 4 Medical tablet (four) Branch hours as needed for Pain (scale 7-10) for up to 7 days. Indication s: acute pain docusate 2021-08- No [id number] 100mg Take 1 Univers 100 mg 09-12 capsule by ity of capsule 00:00: 05:59 mouth in [place] 00 :00 the Medical morning Branch and 1 capsule in the evening. Do all this for 7 days. HYDROcodone 2021-08- No [id number] 1{tbl} Take 1 U nivers -acetaminop - 12-12 tablet by it y of hen (NORCO) 00:00: 00:00 mouth [place] 10-325 mg 00 :00 every 4 Medical tablet (four) Branch hours as needed for Pain (scale 7-10) for up to 7 days. Indication s: acute pain HYDROcodone 2021-08 No 4647 1{tbl} Take 1 U nivers -acetaminop 09-12- tablet by it y of hen 5-325 00:00: 00:00 mouth [place] mg tablet 00 :00 every 4 Medical (four) Branch hours as needed for Pain (scale 7-10) for up to 7 days. Indication s: acute pain ceFAZolin 2021-08 No 2000mg 2 g (2,000 Univers in 0.9% 2- 12-07 mg), IV ity of sodium 23:00: 22:59 [place]back[place] chloride 00 :00 Q8H ABX, 6 Medic al (ANCEF) 2 doses, Branch gram/100 mL First dose RTU 2 g on Mon07/11/22 at 1700, Last dose on Mon07/13/22 at 0900, Administer over 30 Minutes, 100 mL
Reas on for Anti-Infec tive: Surgical Prophylaxi s
Surgi benjie Prophylaxi s: Neurosurge ry
Dura tion of therapy: within 24 hours of surgery ceFAZolin 2021-08 No 2000mg 2 g (2,000 Univers in 0.9% 2-05 12-07 mg), IV ity of sodium 23:00: 22:59 [place] chloride 00 :00 Q8H ABX, 6 Medic al (ANCEF) 2 doses, Branch gram/100 mL First dose RTU 2 g on Mon07/11/22 at 1700, Last dose on Mon07/13/22 at 0900, Administer over 30 Minutes, 100 mL
Reas on for Anti-Infec tive: Surgical Prophylaxi s
Surgi benjie Prophylaxi s: Neurosurge ry
Dura tion of therapy: within 24 hours of surgery tiZANidine 2021-08 Yes 4mg 4 mg, Univer s (ZANAFLEX) 2-05 Oral, TID, ity of tablet 4 mg 20:00: First dose on [facility] 07/11/22 at Branch 1400, Until Discontinu ed tiZANidine 2021-08 Yes 4mg 4 mg, Univer s (ZANAFLEX) 2-05 Oral, TID, ity of tablet 4 mg 20:00: First dose on [facility] 07/11/22 at Branch 1400, Until Discontinu ed NaCl 0.9% 2021-08 Yes 1000mL at 42 Unive rs (NS) IV 2-05 mL/hr, IV ity of infusion 19:30: [place] 1,000 mL 00 CONTINUOUS Medic al , Starting Branch on Mon07/11/22 at 1330, Until Discontinu ed, Routine NaCl 0.9% 2021-08 Yes 1000mL at 42 Unive rs (NS) IV 2-05 mL/hr, IV ity of infusion 19:30: [place]fusion, [place] 1,000 mL 00 CONTINUOUS Medic al , Starting Branch on Mon07/11/22 at 1330, Until Discontinu ed, Routine ondansetron 2021-08 Yes 4mg 4 mg, Slow Univers (ZOFRAN 2-05 IV Push, ity of (PF)) 18:16: Q6HPRN, [place] injection 4 58 Starting Medi benjie mg on Mon [place] 07/11/22 at 1216, Until Discontinu ed, Routine, Nausea and Vomiting (N/V) HYDROcodone 2021-08 Yes 1{tbl} 1 tablet, Univers -acetaminop 2-05 Oral, ity of hen (NORCO 18:16: Q4HPRN, [place] 5) 5-325 mg 58 Starting Medi benj[place] tablet 1 on Mon Branch tablet 07/11/22 at 1216, Until Discontinu ed, Routine, Pain (scale 7-10) acetaminoph 2021-08 Yes 650mg 650 mg, Un claudia en 2-05 Oral, ity of (TYLENOL) 18:16: Q4HPRN, [place] tablet 650 58 Starting Medic al mg on Mon Branch 07/11/22 at 1216, Until Discontinu ed, Routine, Pain (scale 1-3) ondansetron 2021-08 Yes 4mg 4 mg, Slow Univers (ZOFRAN 2-05 IV Push, ity of (PF)) 18:16: Q6HPRN, [place] injection 4 58 Starting Medi benjie mg on Mon Branch 07/11/22 at 1216, Until Discontinu ed, Routine, Nausea and Vomiting (N/V) HYDROcodone 2021-08 Yes 1{tbl} 1 tablet, Univers -acetaminop 2-05 Oral, ity of hen (NORCO 18:16: Q4HPRN, [place] 5) 5-325 mg 58 Starting Medi benj[place] tablet 1 on Mon Branch tablet 07/11/22 at 1216, Until Discontinu ed, Routine, Pain (scale 7-10) acetaminoph 2021-08 Yes 650mg 650 mg, Un claudia en 2-05 Oral, ity of (TYLENOL) 18:16: Q4HPRN, [place] tablet 650 58 Starting Medic al mg on Mon Branch 07/11/22 at 1216, Until Discontinu ed, Routine, Pain (scale 1-3) ketorolac 2021-08- No 30mg 30 mg, Unive rs (TORADOL) 09-11 12-08 Slow IV ity of injection 18:16: 18:15 Push, [place] 30 mg 58 :58 Q6HPRN, Medical Starting Branch on 07/11/22 at 1216, Until [place] 07/14/22 at 1215, Routine, Pain (scale 4-6) ketorolac 2021-08- No 30mg 30 mg, Unive rs (TORADOL) 09-11 12-08 Slow IV ity of injection 18:16: 18:15 Push, [place] 30 mg 58 :58 Q6HPRN, Medical Starting Branch on 07/11/22 at 1216, Until [place] 07/14/22 at 1215, Routine, Pain (scale 4-6) HYDROcodone 2021-08 No 1{tbl} 1 tablet, Univers -acetaminop 2- 12-05 Oral, ity of hen (NORCO 18:00: 18:54 ONCE, 1 [place] 5) 5-325 mg 00 :00 dose, On Medi benjie tablet 1 Mon Branch tablet 07/11/22 at 1200, Routine, PACU HYDROcodone 2021-08 No 1{tbl} 1 tablet, Univers -acetaminop 2-05 12-05 Oral, ity of hen (NORCO 18:00: 18:54 ONCE, 1 [place] 5) 5-325 mg 00 :00 dose, On Medi benjie tablet 1 Mon Branch tablet 07/11/22 at 1200, Routine, PACU FENTanyl PF 2021-08 No 25ug 25 mcg, Un claudia (SUBLIMAZE 09-11- Slow IV ity o f (PF)) 17:57: 21:00 Push, [place] injection 59 :00 Q5MIN PRN, Medi benjie 25 mcg 4 doses, Branch Starting on Mon07/11/22 at 1157, Until Discontinu ed, Routine, Pain (scale 4-6), PACU HYDROmorphO 2021-08 No .2mg 0.2 mg, Un claudia ne 2-12 16-05 Slow IV ity of (DILAUDID) 17:57: 22:01 Push, [place] injection 59 :42 Q5MIN PRN, Medi benjie 0.2 mg 10 doses, Branch Starting on Mon07/11/22 at 1157, Until Mon07/11/22 at 1601, Routine, Pain (scale 7-10), PACU
Us e approved by (Faculty): PACU USE -ANESTHESI A SERVICE-HY DROMORPHON E INJECTIONS FENTanyl PF 2021-08 No 25ug 25 mcg, Un [place] (SUBLIMAZE 2 12-05 Slow IV ity o f (PF)) 17:57: 21:00 Push, [place] injection 59 :00 Q5MIN PRN, Medi benjie 25 mcg 4 doses, Branch Starting on Mon07/11/22 at 1157, Until Discontinu ed, Routine, Pain (scale 4-6), PACU HYDROmorphO 2021-08- No .2mg 0.2 mg, Un claudia ne 09-11 Slow IV ity of (DILAUDID) 17:57: 22:01 Push, [place] injection 59 :42 Q5MIN PRN, Medi benjie 0.2 mg 10 doses, Branch Starting on Mon07/11/22 at 1157, Until Mon07/11/22 at 1601, Routine, Pain (scale 7-10), PACU
Us e approved by (Faculty): PACU USE -ANESTHESI A SERVICE-HY DROMORPHON E INJECTIONS gentamicin 2021-08- No PRN, Univer s 80 mg, 207-11 Starting ity of vancomycin 16:09: 18:20 on Mon [facility] (VANCOCIN) 00 :28 07/11/22 at [facility] ical 1,000 mg in 1009, [place] NaCl 0.9% Intra-op (NS) 3,000 mL OR irrigation thrombin 2021-08- No PRN, Univers (THROMBINAR 09-11 Starting ity of ) spray 16:06: 18:20 on Mon [place] 00 :28 07/11/22 at Medical 1006, Branch Until Mon07/11/22 at 1220, Routine, Intra-op lidocaine-e 2021-08- No PRN, Unive rs pinephrine 09-11 Starting ity of (XYLOCAINE 15:27: 18:20 on Mon s WITH 00 :28 07/11/22 at [facility] EPINEPHRINE 0927, Branch ) 1 Until [facility] %-1:100,000 07/11/22 at injection 1220, Routine, Intra-op gadoteridol 2021-08- No [id number] .2mL/kg 19.68 mL Univers (PROHANCE-2 08-29 (0.2 mL/kg i ty of 0 mL) 22:30: 22:20 ?98.4 kg), [place] injection 00 :00 Intravenou Medi benjie 19.68 mL s, ONCE, 1 Branc h dose, On Mon06/29/22 at 1630, Routine methylPREDN 2021-08 Yes [id number] Take by Univers ISolone 1-21 mouth ity of (MEDROL, 00:00: SEE-INSTRU [place] UNA,) 4 mg 00 CTIONS. Medica l tablets follow Branch package directions methylPREDN 2021-08 Yes [id number] Take by Univers ISolone 1-21 mouth ity of (MEDROL, 00:00: SEE-INSTRU [place] UNA,) 4 mg 00 CTIONS. Medica l tablets follow Branch package directions methylPREDN 2021-08 Yes [id number] Take by Univers ISolone 1-21 mouth ity of (MEDROL, 00:00: SEE-INSTRU [place] UNA,) 4 mg 00 CTIONS. Medica l tablets follow Branch package directions methylPREDN 2021-08 Yes [id number] Take by Univers ISolone 1-21 mouth ity of (MEDROL, 00:00: SEE-INSTRU [place] UNA,) 4 mg 00 CTIONS. Medica l tablets follow Branch package directions methylPREDN 2021-08 Yes [id number] Take by Univers ISolone -21 mouth ity of (MEDROL, 00:00: SEE-INSTRU [place] UNA,) 4 mg 00 CTIONS. Medica l tablets follow Branch package directions methylPREDN 2021-08 Yes [id number] Take by Univers ISolone 1-21 mouth ity of (MEDROL, 00:00: SEE-INSTRU [place] UNA,) 4 mg 00 CTIONS. Medica l tablets follow Branch package directions methylPREDN 2021-08 Yes [id number] Take by Univers ISolone 1-21 mouth ity of (MEDROL, 00:00: SEE-INSTRU [place] UNA,) 4 mg 00 CTIONS. Medica l tablets follow Branch package directions methylPREDN 2021-08 Yes [id number] Take by Univers ISolone 1-21 mouth ity of (MEDROL, 00:00: SEE-INSTRU [place] UNA,) 4 mg 00 CTIONS. Medica l tablets follow Branch package directions methylPREDN 2021-08 Yes [id number] Take by Univers ISolone 1-21 mouth ity of (MEDROL, 00:00: SEE-INSTRU [place] UNA,) 4 mg 00 CTIONS. Medica l tablets follow Branch package directions methylPREDN 2021-08 Yes [id number] Take by Univers ISolone 1-21 mouth ity of (MEDROL, 00:00: SEE-INSTRU [place] UNA,) 4 mg 00 CTIONS. Medica l tablets follow Branch package directions methylPREDN 2021-08 Yes [id number] Take by Univers ISolone 21 mouth ity of (MEDROL, 00:00: SEE-INSTRU [place] UNA,) 4 mg 00 CTIONS. Medica l tablets follow Branch package directions methylPREDN 2021-08 Yes [id number] Take by Univers ISolone 21 mouth ity of (MEDROL, 00:00: SEE-INSTRU [place] UNA,) 4 mg 00 CTIONS. Medica l tablets follow Branch package directions methylPREDN 2021-08 Yes [id number] Take by Univers ISolone 21 mouth ity of (MEDROL, 00:00: SEE-INSTRU [place] UNA,) 4 mg 00 CTIONS. Medica l tablets follow Branch package directions methylPREDN 2021-08 Yes [id number] Take by Univers ISolone 21 mouth ity of (MEDROL, 00:00: SEE-INSTRU [place] UNA,) 4 mg 00 CTIONS. Medica l tablets follow Branch package directions methylPREDN 2021-08 Yes [id number] Take by Univers ISolone 21 mouth ity of (MEDROL, 00:00: SEE-INSTRU [place],) 4 mg 00 CTIONS. Medica l tablets follow Branch package directions methylPREDN 2021-08 Yes [id number] Take by Univers ISolone 08-27 mouth ity of (MEDROL, 00:00: SEE-INSTRU [place] UNA,) 4 mg 00 CTIONS. Medica l tablets follow Branch package directions cephALEXin 2021-08- No [id number] 500mg Take 1 Univers (KEFLEX) 08-27 capsule by ity of 500 mg 00:00: 05:59 mouth 4 [place] capsule 00 :00 (four) Medical times Branch daily for 10 days. cephALEXin 2021-08- No [id number] 500mg Take 1 Univers (KEFLEX) 08-27 capsule by ity of 500 mg 00:00: 05:59 mouth 4 [place] capsule 00 :00 (four) Medical times Branch daily for 10 days. cephALEXin 2021-08- No [id number] 500mg Take 1 Univers (KEFLEX) 08-27 capsule by ity of 500 mg 00:00: 05:59 mouth 4 [place] capsule 00 :00 (four) Medical times Branch daily for 10 days. cephALEXin 2021-08- No [id number] 500mg Take 1 Univers (KEFLEX) 08-27 capsule by ity of 500 mg 00:00: 05:59 mouth 4 [place] capsule 00 :00 (four) Medical times Branch daily for 10 days. cephALEXin 2021-08- No [id number] 500mg Take 1 Univers (KEFLEX) 08-27 capsule by ity of 500 mg 00:00: 05:59 mouth 4 [place] capsule 00 :00 (four) Medical times Branch daily for 10 days. cephALEXin 2021-08- No [id number] 500mg Take 1 Univers (KEFLEX) 08-27 capsule by ity of 500 mg 00:00: 05:59 mouth 4 [place] capsule 00 :00 (four) Medical times Branch daily for 10 days. cephALEXin 2021-08 No [id number] 500mg Take 1 Univers (KEFLEX) 08-27 capsule by ity of 500 mg 00:00: 05:59 mouth 4 [place] capsule 00 :00 (four) Medical times Branch daily for 10 days. cephALEXin 2021-08- No [id number] 500mg Take 1 Univers (KEFLEX) 08-27 capsule by ity of 500 mg 00:00: 05:59 mouth 4 [place] capsule 00 :00 (four) Medical times Branch daily for 10 days. HYDROcodone 2021-08- No [id number] 1{tbl} Take 1 U nivers -acetaminop 08-27 tablet by it y of hen (NORCO) 00:00: 05:59 mouth [place] 5-325 mg 00 :00 every 4 Medical tablet (four) Branch hours as needed for Pain (scale 7-10) for up to 7 days. Indication s: acute pain HYDROcodone 2021-08 No 4647 1{tbl} Take 1 U nivers -acetaminop -27 06-29 tablet by it y of hen (NORCO) 00:00: 05:59 mouth [place] 5-325 mg 00 :00 every 4 Medical tablet (four) Branch hours as needed for Pain (scale 7-10) for up to 7 days. Indication s: acute pain HYDROcodone 2021-08- No 4647 1{tbl} Take 1 U nivers -acetaminop 08-27 tablet by it y of hen (NORCO) 00:00: 05:59 mouth [place] 5-325 mg 00 :00 every 4 Medical tablet (four) Branch hours as needed for Pain (scale 7-10) for up to 7 days. Indication s: acute pain HYDROcodone 2021-08- No 4647 1{tbl} Take 1 U nivers -acetaminop 08-27 tablet by it y of hen (NORCO) 00:00: 05:59 mouth [place] 5-325 mg 00 :00 every 4 Medical tablet (four) Branch hours as needed for Pain (scale 7-10) for up to 7 days. Indication s: acute pain methylPREDN 2021-08- No [id number] Take by Univers ISolone 08-27 mouth ity of (MEDROL, 00:00: 00:00 SEE-INSTRU [place] UNA,) 4 mg 00 :00 CTIONS. Medica l tablets follow Branch package directions methylPREDN 2021-08- No [id number] Take by Univers ISolone 08-27 mouth ity of (MEDROL, 00:00: 00:00 [place]-INSTRU [place] UNA,) 4 mg 00 :00 CTIONS. Medica l tablets follow Branch package directions FLUTICASONE 2021-08 Yes 50ug Use 50 mcg Univers PROPIONATE 1-11 in each ity of NASAL 14:06: nostril [place] 31 once daily Medical as needed Branch for Other (allergies ). FLUTICASONE 2021-08 Yes 50ug Use 50 mcg Univers PROPIONATE 1-11 in each ity of NASAL 14:06: nostril [place] 31 once daily Medical as needed Branch for Other (allergies ). FLUTICASONE 2021-08 Yes 50ug Use 50 mcg Univers PROPIONATE 1-11 in each ity of NASAL 14:06: nostril [place] 31 once daily Medical as needed Branch for Other (allergies ). FLUTICASONE 2021-08 Yes 50ug Use 50 mcg Univers PROPIONATE 1-11 in each ity of NASAL 14:06: nostril [place] 31 once daily Medical as needed Branch for Other (allergies ). FLUTICASONE 2021-08 Yes 50ug Use 50 mcg Univers PROPIONATE 1-11 in each ity of NASAL 14:06: nostril [place] 31 once daily Medical as needed Branch for Other (allergies ). FLUTICASONE 2021-08 Yes 50ug Use 50 mcg Univers PROPIONATE 1-11 in each ity of NASAL 14:06: nostril [place] 31 once daily Medical as needed Branch for Other (allergies ). FLUTICASONE 2021-08 Yes 50ug Use 50 mcg Univers PROPIONATE 1-11 in each ity of NASAL 14:06: nostril [place] 31 once daily Medical as needed Branch for Other (allergies ). FLUTICASONE 2021-08 Yes 50ug Use 50 mcg Univers PROPIONATE 1-11 in each ity of NASAL 14:06: nostril [place] 31 once daily Medical as needed Branch for Other (allergies ). FLUTICASONE 2021-08 Yes 50ug Use 50 mcg Univers PROPIONATE 1-11 in each ity of NASAL 14:06: nostril [place] 31 once daily Medical as needed Branch for Other (allergies ). FLUTICASONE 2021-08 Yes 50ug Use 50 mcg Univers PROPIONATE 1-11 in each ity of NASAL 14:06: nostril [place] 31 once daily Medical as needed Branch for Other (allergies ). FLUTICASONE 2021-08 Yes 50ug Use 50 mcg Univers PROPIONATE 1-11 in each ity of NASAL 14:06: nostril [place] 31 once daily Medical as needed Branch for Other (allergies ). budesonide- 2021-08 Yes 2{puff} Inhale 2 Univers formoteroL 1-07 Puffs. ity of 160-4.5 09:23: [place] mcg/actuati 56 Medical on inhaler Branch ALBUTEROL 2021-08 Yes 8.5mg Inhale 8.5 U nivers INHALE 1-07 mg every 4 ity of 09:23: (four) [place] 56 hours as Medical needed Branch (wheezing) . budesonide- 2021-08 Yes 2{puff} Inhale 2 Univers formoteroL 1-07 Puffs. ity of 160-4.5 09:23: [place] mcg/actuati 56 Medical on inhaler Branch ALBUTEROL 2021-08 Yes 8.5mg Inhale 8.5 U nivers INHALE 1-07 mg every 4 ity of 09:23: (four) [place] 56 hours as Medical needed Branch (wheezing) . budesonide- 2021-08 Yes 2{puff} Inhale 2 Univers formoteroL 1-07 Puffs. ity of 160-4.5 09:23: [place] mcg/actuati 56 Medical on inhaler Branch ALBUTEROL 2021-08 Yes 8.5mg Inhale 8.5 U nivers INHALE 1-07 mg every 4 ity of 09:23: (four) [place] 56 hours as Medical needed Branch (wheezing) . budesonide- 2021-08 Yes 2{puff} Inhale 2 Univers formoteroL 1-07 Puffs. ity of 160-4.5 09:23: [place] mcg/actuati 56 Medical on inhaler Branch ALBUTEROL 2021-08 Yes 8.5mg Inhale 8.5 U nivers INHALE 1-07 mg every 4 ity of 09:23: (four) [place] 56 hours as Medical needed Branch (wheezing) . budesonide- 2021-08 Yes 2{puff} Inhale 2 Univers formoteroL 1-07 Puffs. ity of 160-4.5 09:23: [place] mcg/actuati 56 Medical on inhaler Branch ALBUTEROL 2021-08 Yes 8.5mg Inhale 8.5 U nivers INHALE 1-07 mg every 4 ity of 09:23: (four) [place] 56 hours as Medical needed Branch (wheezing) . budesonide- 2021-08 Yes 2{puff} Inhale 2 Univers formoteroL 1-07 Puffs. ity of 160-4.5 09:23: [place] mcg/actuati 56 Medical on inhaler Branch ALBUTEROL 2021-08 Yes 8.5mg Inhale 8.5 U nivers INHALE 1-07 mg every 4 ity of 09:23: (four) [place] 56 hours as Medical needed Branch (wheezing) . budesonide- 2021-08 Yes 2{puff} Inhale 2 Univers formoteroL 1-07 Puffs. ity of 160-4.5 09:23: [place] mcg/actuati 56 Medical on inhaler Branch ALBUTEROL 2021-08 Yes 8.5mg Inhale 8.5 U nivers INHALE 1-07 mg every 4 ity of 09:23: (four) [place] 56 hours as Medical needed Branch (wheezing) . budesonide- 2021-08 Yes 2{puff} Inhale 2 Univers formoteroL 1-07 Puffs. ity of 160-4.5 09:23: [place] mcg/actuati 56 Medical on inhaler Branch ALBUTEROL 2021-08 Yes 8.5mg Inhale 8.5 U nivers INHALE 1-07 mg every 4 ity of 09:23: (four) [place] 56 hours as Medical needed Branch (wheezing) . budesonide- 2021-08 Yes 2{puff} Inhale 2 Univers formoteroL 1-07 Puffs. ity of 160-4.5 09:23: [place] mcg/actuati 56 Medical on inhaler Branch ALBUTEROL 2021-08 Yes 8.5mg Inhale 8.5 U nivers INHALE 1-07 mg every 4 ity of 09:23: (four) [place] 56 hours as Medical needed Branch (wheezing) . budesonide- 2021-08 Yes 2{puff} Inhale 2 Univers formoteroL 1-07 Puffs. ity of 160-4.5 09:23: [place] mcg/actuati 56 Medical on inhaler Branch ALBUTEROL 2021-08 Yes 8.5mg Inhale 8.5 U nivers INHALE 1-07 mg every 4 ity of 09:23: (four) [place] 56 hours as Medical needed Branch (wheezing) . budesonide- 2021-08 Yes 2{puff} Inhale 2 Univers formoteroL 1-07 Puffs. ity of 160-4.5 09:23: [place] mcg/actuati 56 Medical on inhaler Branch ALBUTEROL 2021-08 Yes 8.5mg Inhale 8.5 U nivers INHALE 1-07 mg every 4 ity of 09:23: (four) [place] 56 hours as Medical needed Branch (wheezing) . budesonide- 2021-08 Yes 2{puff} Inhale 2 Univers formoteroL 1-07 Puffs. ity of 160-4.5 09:23: [place] mcg/actuati 56 Medical on inhaler Branch ALBUTEROL 2021-08 Yes 8.5mg Inhale 8.5 U nivers INHALE 1-07 mg every 4 ity of 09:23: (four) [place] 56 hours as Medical needed Branch (wheezing) . budesonide- 2021-08 Yes 2{puff} Inhale 2 Univers formoteroL 1-07 Puffs. ity of 160-4.5 09:23: [place] mcg/actuati 56 Medical on inhaler Branch ALBUTEROL 2021-08 Yes 8.5mg Inhale 8.5 U nivers INHALE 1-07 mg every 4 ity of 09:23: (four) [place] 56 hours as Medical needed Branch (wheezing) . FLUoxetine 2021-08 Yes 10mg 10 mg, Unive rs (PROZAC) 0-31 Oral, ity of capsule 10 14:00: DAILY, [place] mg 00 First dose Medical on [place] Branch 06/06/22 at 0900, Until Discontinu ed budesonide- 2021-08 Yes 2{puff} Inhale 2 Univers formoteroL 0-31 Puffs. ity of 160-4.5 12:36: [place] mcg/actuati 41 Medical on inhaler Branch FLUTICASONE 2021-08 Yes 50ug Use 50 mcg Univers PROPIONATE 0-31 in each ity of NASAL 12:36: nostril [place] 41 once daily Medical as needed Branch for Other (allergies ). ALBUTEROL 2021-08 Yes 8.5mg Inhale 8.5 U nivers INHALE 0-31 mg every 4 ity of 12:36: (four) [place] 41 hours as Medical needed Branch (wheezing) . budesonide- 2021-08 Yes 2{puff} Inhale 2 Univers formoteroL 0-31 Puffs. ity of 160-4.5 12:36: [place] mcg/actuati 41 Medical on inhaler Branch FLUTICASONE 2021-08 Yes 50ug Use 50 mcg [facility] PROPIONATE 0-31 in each ity of NASAL 12:36: nostril [place] 41 once daily Medical as needed Branch for Other (allergies ). ALBUTEROL 2021-08 Yes 8.5mg Inhale 8.5 U nivers INHALE 0-31 mg every 4 ity of 12:36: (four) [place] 41 hours as Medical needed Branch (wheezing) . FLUTICASONE 2021-08 Yes 50ug Use 50 mcg Univers PROPIONATE 0-31 in each ity of NASAL 12:36: nostril [place] 41 once daily Medical as needed Branch for Other (allergies ). FLUTICASONE 2021-08 Yes 50ug Use 50 mcg Univers PROPIONATE 0-31 in each ity of NASAL 12:36: nostril [place] 41 once daily Medical as needed Branch for Other (allergies ). levothyroxi 2021-08 Yes 137ug 137 mcg, U nivers ne 0-31 Oral, ity of (SYNTHROID) 11:00: QAM-0600, [place] tablet 137 00 First dose Med ical mcg on [facility] Branch 06/06/22 at 0600, Until Discontinu ed, Routine omeprazole 2021-08 40mg Take 40 mg Univers 40 mg 0- 10-31 by mouth ity of capsule 10:47: 00:00 at [place] 39 :00 bedtime. Medical Branch omeprazole 2021-08 No 40mg Take 40 mg Univers 40 mg 0- 10-31 by mouth ity of capsule 10:47: 00:00 at [place] 39 :00 bedtime. Medical Branch pantoprazol 2021-08 Yes 40mg 40 mg, Univ ers e 0-31 Oral, QHS, ity of (PROTONIX) 02:00: First dose [place] EC tablet 00 on [facility] 40 mg 06/05/22 Branch at 2100, Until Discontinu ed, Routine amitriptyli 2021-08 Yes 25mg 25 mg, Univ ers ne (ELAVIL) 0-31 Oral, QHS, it y of tablet 25 02:00: First dose [place] mg 00 on [facility] 06/05/22 Branch at 2100, Until Discontinu ed, Routine docusate 2021-08 Yes 100mg 100 mg, Unive rs (COLACE) 0-31 Oral, BID, ity o f capsule 100 01:00: First dose [place] mg 00 on [facility] 06/05/22 Branch at 2000, Until Discontinu ed, Routine budesonide- 2021-08 Yes 2{puff} 2 Puff, Univers formoteroL 0-31 Inhalation ity of (SYMBICORT) 01:00: , BID, [place] 160-4.5 00 First dose Medica l mcg/actuati on [facility] on inhaler 06/05/22 2 Puff at 2000, Until Discontinu ed, Routine Fluticasone 2021-08 Yes 1{puff} 1 Puff, Univers -Salmeterol 0-31 Inhalation it y of (ADVAIR) 01:00: , Q12H, [place] 500-50 00 First dose Medical mcg/dose on [place] [facility] inhalation 06/05/22 disk 1 Puff at 2000, Until Discontinu ed, Routine HYDROcodone 2021-08 Yes 1{tbl} 1 tablet, Univers -acetaminop 0-31 Oral, ity of hen (NORCO) 00:45: Q4HPRN, [place] 10-325 mg 48 Starting Medica l tablet 1 on [place] [facility] tablet 06/05/22 at 1945, Until Discontinu ed, Routine, Pain (scale 7-10) traMADoL 2021-08 Yes 50mg 50 mg, Univers (ULTRAM) 0-31 Oral, ity of tablet 50 00:44: Q6HPRN, [place] mg 54 Starting Medical on [place] [facility] 06/05/22 at 1944, Until Discontinu ed, Routine, Pain (scale 4-6) butalbital- 2021-08 Yes [id number] 1{tbl} Take 1 [facility] acetaminoph 0-31 tablet by ity of en-caff 00:00: mouth [place] 50-325-40 00 every 4 Medical mg tablet (four) Branch hours as needed (Headaches ). butalbital- 2021-08 Yes [id number] 1{tbl} Take 1 [facility] acetaminoph 0-31 tablet by ity of en-caff 00:00: mouth [place] 50-325-40 00 every 4 Medical mg tablet (four) Branch hours as needed (Headaches ). butalbital- 2021-08 Yes [id number] 1{tbl} Take 1 [facility] acetaminoph 0-31 tablet by ity of en-caff 00:00: mouth [place] 50-325-40 00 every 4 Medical mg tablet (four) Branch hours as needed (Headaches ). butalbital- 2021-08 Yes [id number] 1{tbl} Take 1 [facility] acetaminoph 0-31 tablet by ity of en-caff 00:00: mouth [place] 50-325-40 00 every 4 Medical mg tablet (four) Branch hours as needed (Headaches ). butalbital- 2021-08 Yes [id number] 1{tbl} Take 1 [facility] acetaminoph 0-31 tablet by ity of en-caff 00:00: mouth [place] 50-325-40 00 every 4 Medical mg tablet (four) Branch hours as needed (Headaches ). butalbital2021-08 Yes [id number] 1{tbl} Take 1 [facility] acetaminoph 0-31 tablet by ity of en-caff 00:00: mouth [place] 50-325-40 00 every 4 Medical mg tablet (four) Branch hours as needed (Headaches ). butalbital2021-08 Yes [id number] 1{tbl} Take 1 [facility] acetaminoph 0-31 tablet by ity of en-caff 00:00: mouth [place] 50-325-40 00 every 4 Medical mg tablet (four) Branch hours as needed (Headaches ). butalbital2021-08 Yes [id number] 1{tbl} Take 1 [facility] acetaminoph 0-31 tablet by ity of en-caff 00:00: mouth [place] 50-325-40 00 every 4 Medical mg tablet (four) Branch hours as needed (Headaches ). butalbital2021-08 Yes [id number] 1{tbl} Take 1 Univers acetaminoph 0-31 tablet by ity of en-caff 00:00: mouth [place] 50-325-40 00 every 4 Medical mg tablet (four) Branch hours as needed (Headaches ). butalbital2021-08 Yes [id number] 1{tbl} Take 1 Univers acetaminoph 0-31 tablet by ity of en-caff 00:00: mouth [place] 50-325-40 00 every 4 Medical mg tablet (four) Branch hours as needed (Headaches ). butalbital2021-08 Yes [id number] 1{tbl} Take 1 Univers acetaminoph 0-31 tablet by ity of en-caff 00:00: mouth [place] 50-325-40 00 every 4 Medical mg tablet (four) Branch hours as needed (Headaches ). butalbital2021-08 Yes [id number] 1{tbl} Take 1 Univers acetaminoph 0-31 tablet by ity of en-caff 00:00: mouth [place] 50-325-40 00 every 4 Medical mg tablet (four) Branch hours as needed (Headaches ). butalbital2021-08 Yes [id number] 1{tbl} Take 1 Univers acetaminoph 0-31 tablet by ity of en-caff 00:00: mouth [place] 50-325-40 00 every 4 Medical mg tablet (four) Branch hours as needed (Headaches ). butalbital2021-08 Yes [id number] 1{tbl} Take 1 Univers acetaminoph 0-31 tablet by ity of en-caff 00:00: mouth [place] 50-325-40 00 every 4 Medical mg tablet (four) Branch hours as needed (Headaches ). butalbital2021-08 Yes [id number] 1{tbl} Take 1 Univers acetaminoph 0-31 tablet by ity of en-caff 00:00: mouth [place] 50-325-40 00 every 4 Medical mg tablet (four) Branch hours as needed (Headaches ). butalbital2021-08 Yes [id number] 1{tbl} Take 1 Univers acetaminoph 0-31 tablet by ity of en-caff 00:00: mouth [place] 50-325-40 00 every 4 Medical mg tablet (four) Branch hours as needed (Headaches ). butalbital2021-08 Yes [id number] 1{tbl} Take 1 Univers acetaminoph 0-31 tablet by ity of en-caff 00:00: mouth [place] 50-325-40 00 every 4 Medical mg tablet (four) Branch hours as needed (Headaches ). butalbital2021-08 Yes [id number] 1{tbl} Take 1 [facility] acetaminoph 0-31 tablet by ity of en-caff 00:00: mouth [place] 50-325-40 00 every 4 Medical mg tablet (four) Branch hours as needed (Headaches ). butalbital2021-08 Yes [id number] 1{tbl} Take 1 Univers acetaminoph 0-31 tablet by ity of en-caff 00:00: mouth [place] 50-325-40 00 every 4 Medical mg tablet (four) Branch hours as needed (Headaches ). butalbital2021-08 Yes [id number] 1{tbl} Take 1 [facility] acetaminoph 0-31 tablet by ity of en-caff 00:00: mouth [place] 50-325-40 00 every 4 Medical mg tablet (four) Branch hours as needed (Headaches ). butalbital2021-08 Yes [id number] 1{tbl} Take 1 Univers acetaminoph 0-31 tablet by ity of en-caff 00:00: mouth [place] 50-325-40 00 every 4 Medical mg tablet (four) Branch hours as needed (Headaches ). butbital2021-08 Yes [id number] 1{tbl} Take 1 [facility] acetaminoph 0-31 tablet by ity of en-caff 00:00: mouth [place] 50-325-40 00 every 4 Medical mg tablet (four) Branch hours as needed (Headaches ). butbital2021-08 Yes [id number] 1{tbl} Take 1 Univers acetaminoph 0-31 tablet by ity of en-caff 00:00: mouth [place] 50-325-40 00 every 4 Medical mg tablet (four) Branch hours as needed (Headaches ). butalbit2021-08 Yes [id number] 1{tbl} Take 1 [facility] acetaminoph 0-31 tablet by ity of en-caff 00:00: mouth [place] 50-325-40 00 every 4 Medical mg tablet (four) Branch hours as needed (Headaches ). butbit2021-08 Yes [id number] 1{tbl} Take 1 Univers acetaminoph 0-31 tablet by ity of en-caff 00:00: mouth [place] 50-325-40 00 every 4 Medical mg tablet (four) Branch hours as needed (Headaches ). butbit2021-08 Yes [id number] 1{tbl} Take 1 Univers acetaminoph 0-31 tablet by ity of en-caff 00:00: mouth [place] 50-325-40 00 every 4 Medical mg tablet (four) Branch hours as needed (Headaches ). butalbital2021-08 Yes [id number] 1{tbl} Take 1 Univers acetaminoph 0-31 tablet by ity of en-caff 00:00: mouth [place] 50-325-40 00 every 4 Medical mg tablet (four) Branch hours as needed (Headaches ). butalbital2021-08 Yes [id number] 1{tbl} Take 1 Univers acetaminoph 0-31 tablet by ity of en-caff 00:00: mouth [place] 50-325-40 00 every 4 Medical mg tablet (four) Branch hours as needed (Headaches ). butalbital2021-08 Yes [id number] 1{tbl} Take 1 Univers acetaminoph 0-31 tablet by ity of en-caff 00:00: mouth [place] 50-325-40 00 every 4 Medical mg tablet (four) Branch hours as needed (Headaches ). butalbital2021-08 Yes [id number] 1{tbl} Take 1 Univers acetaminoph 0-31 tablet by ity of en-caff 00:00: mouth [place] 50-325-40 00 every 4 Medical mg tablet (four) Branch hours as needed (Headaches ). butalbital2021-08 Yes [id number] 1{tbl} Take 1 Univers acetaminoph 0-31 tablet by ity of en-caff 00:00: mouth [place] 50-325-40 00 every 4 Medical mg tablet (four) Branch hours as needed (Headaches ). butalbital2021-08 Yes [id number] 1{tbl} Take 1 Univers acetaminoph 0-31 tablet by ity of en-caff 00:00: mouth [place] 50-325-40 00 every 4 Medical mg tablet (four) Branch hours as needed (Headaches ). butalbital2021-08 Yes [id number] 1{tbl} Take 1 [facility] acetaminoph 0-31 tablet by ity of en-caff 00:00: mouth [place] 50-325-40 00 every 4 Medical mg tablet (four) Branch hours as needed (Headaches ). butalbital2021-08 Yes [id number] 1{tbl} Take 1 Univers acetaminoph 0-31 tablet by ity of en-caff 00:00: mouth [place] 50-325-40 00 every 4 Medical mg tablet (four) Branch hours as needed (Headaches ). butalbital2021-08 Yes [id number] 1{tbl} Take 1 Univers acetaminoph 0-31 tablet by ity of en-caff 00:00: mouth [place] 50-325-40 00 every 4 Medical mg tablet (four) Branch hours as needed (Headaches ). butalbital2021-08 Yes [id number] 1{tbl} Take 1 [facility] acetaminoph 0-31 tablet by ity of en-caff 00:00: mouth [place] 50-325-40 00 every 4 Medical mg tablet (four) Branch hours as needed (Headaches ). [facility]- 2021-08 Yes [id number] 1{tbl} Take 1 Univers acetaminoph 0-31 tablet by ity of en-caff 00:00: mouth [place] 50-325-40 00 every 4 Medical mg tablet (four) Branch hours as needed (Headaches ). [facility] No [id number] 1{tbl} Take 1 Univers acetaminoph 0-31 -27 tablet by it y of en-caff 00:00: 00:00 mouth [place] 50-325-40 00 :00 every 4 Medical mg tablet (four) Branch hours as needed [facility] ). [facility] Unive rs acetaminoph 0-31 09-02 ity of en-caff 00:00: 00:00 [place] 50-325-40 00 :00 Medical mg tablet Branch [facility]- 2021-08- No [id number] 1{tbl} Take 1 Univers acetaminoph 0-31 -27 tablet by it y of en-caff 00:00: 00:00 mouth [place] 50-325-40 00 :00 every 4 Medical mg tablet (four) Branch hours as needed [facility]aches ). [facility] Unive rs acetaminoph 0-31 09-02 ity of en-caff 00:00: 00:00 [place] 50-325-40 00 :00 Medical mg tablet Branch [facility]- 2021-08- No [id number] 1{tbl} Take 1 Univers acetaminoph 0-31 27 tablet by it y of en-caff 00:00: 00:00 mouth [place] 50-325-40 00 :00 every 4 Medical mg tablet (four) Branch hours as needed (Headaches ). traMADoL 50 2021-08- No [id number] 50mg Take 1 Uni vers mg tablet 0-08 tablet by ity of 00:00: 05:59 mouth [place] 00 :00 every 6 Medical (six) Branch hours as needed for Pain (scale 4-6) for up to 7 days. Indication s: acute pain traMADoL 50 2021-08 No 4647 50mg Take 1 Uni vers mg tablet 0-31 -08 tablet by ity of 00:00: 05:59 mouth [place] 00 :00 every 6 Medical (six) Branch hours as needed for Pain (scale 4-6) for up to 7 days. Indication s: acute pain traMADoL 50 2021-08- No [id number] 50mg Take 1 Uni vers mg tablet 0--08 tablet by ity of 00:00: 05:59 mouth [place] 00 :00 every 6 Medical (six) Branch hours as needed for Pain (scale 4-6) for up to 7 days. Indication s: acute pain tiZANidine 2021-08 Yes 4mg 4 mg, Univer s (ZANAFLEX) 0-30 Oral, TID, ity of tablet 4 mg 19:00: First dose [place] 00 on [facility] 06/05/22 Branch at 1400, Until Discontinu ed enoxaparin 2021-08 Yes 40mg 40 mg, Unive rs (LOVENOX) 0-30 Subcutaneo ity of injection 16:00: us, Q24H, [place] 40 mg 00 First dose Medical on [facility] 06/05/22 at 1100, Until Discontinu ed, Routine HYDROcodone 2021-08- No 1{tbl} 1 tablet, Univers -acetaminop 0-30 06-06 Oral, ity of hen (NORCO 14:46: 00:46 Q4HPRN, [place] 5) 5-325 mg 10 :01 Starting Medi [place] tablet 1 on [facility] tablet 06/05/22 at 0946, Until 06/05/22 at 1946, Routine, Pain (scale 7-10) butalbital- 2021-08 Yes 1{tbl} 1 tablet, Univers acetaminoph 0-30 Oral, ity of en-caff 14:44: [place] (ESG[place]) 37 Starting Medical 50-325-40 on [place] [facility] mg tablet 1 06/05/22 tablet at 0944, Until Discontinu ed, Routine, Headaches acetaminoph 2021-08 Yes 650mg 650 mg, Un claudia en 0-30 Oral, ity of (TYLENOL) 14:43: Q6HPRN, [place] tablet 650 07 Starting Medic al mg on [facility] 06/05/22 at 0943, Until Discontinu ed, Routine, Pain (scale 1-3) bisacodyL 2021-08 Yes 10mg 10 mg, Univer s (DULCOLAX) 0-30 Rectal, ity of suppository 14:42: QHSPRN, [place] 10 mg 04 Starting Medical on [facility] 06/05/22 at 0942, Until Discontinu ed, Routine, Constipati on NaCl 0.9% 2021-08 Yes 5mL 5 mL, Slow Un claudia (NS) 0-30 IV Push, ity of injection 5 14:42: PRN - SEE [place] mL 04 INSTRUCTIO Medical NS, Branch Starting on [place] 06/05/22 at 0942, Until Discontinu ed, 10 mL NaCl 0.9% 2021-08- No 500mL at 999 Univ ers (NS) bolus 0-30 10-30 mL/hr, 500 it y of infusion 14:15: 14:51 mL, IV [place] 500 mL 00 :00 Infusion, Medical ONCE, 1 Branch dose, On [place] 06/05/22 at 0915, TALIA magnesium 2021-08 No 2g 2 g, IV Univ ers sulfate in 0-30 10-30 Piggyback, it y of water 2 14:15: 14:51 Administer [place] gram/50 mL 00 :00 over 60 Medica l (4 %) Minutes, Branch infusion 2 ONCE, 1 g dose, On [place] 06/05/22 at 0915, [place] diphenhydrA 2021-08- No 25mg 25 mg, Uni vers MINE 0-30 10-30 Slow IV ity of (BENADRYL) 13:18: 13:39 Push, [place] injection 00 :00 ONCE, 1 Medical 25 mg dose, On [facility] [place] 06/05/22 at 0830, STAT metoclopram 2021-08- No 10mg 10 mg, Uni vers edgar HCl 0-30 10-30 Slow IV ity of (REGLAN) 13:17: 13:39 Push, [place] injection 00 :00 ONCE, 1 Medical 10 mg dose, On [facility] [place] 06/05/22 at 0830, TALIA budesonide- 2021-08 Yes 2{puff} Inhale 2 Univers formoteroL 0-30 Puffs. ity of 160-4.5 10:55: [place] mcg/actuati 58 Medical on inhaler Branch FLUTICASONE 2021-08 Yes 50ug Use 50 mcg Univers PROPIONATE 0-30 in each ity of NASAL 10:55: nostril [place] 58 once daily Medical as needed Branch for Other (allergies ). ALBUTEROL 2021-08 Yes 8.5mg Inhale 8.5 U nivers INHALE 0-30 mg every 4 ity of 10:55: (four) [place] 58 hours as Medical needed Branch (wheezing) . omeprazole 2021-08 Yes 40mg Take 40 mg U nivers 40 mg 0-30 by mouth ity of capsule 10:55: at [place] 58 bedtime. Medical Branch enoxaparin 2021-08 Yes 40mg 40 mg, Unive rs (LOVENOX) 0-29 Subcutaneo ity of injection 15:30: us, Q24H, [place] 40 mg 00 First dose Medical on [facility] Branch 06/04/22 at 1030, Until Discontinu ed, Routine enoxaparin 2021-08 40mg 40 mg, Univ ers (LOVENOX) 0-29 10-29 Subcutaneo ity of injection 15:30: 20:20 us, Q24H, [place] 40 mg 00 :38 First dose Medical on [facility] Branch 06/04/22 at 1030, Until Discontinu ed, Routine budesonide- 2021-08 Yes 2{puff} Inhale 2 Univers formoteroL 0-29 Puffs. ity of 160-4.5 13:20: [place] mcg/actuati 37 Medical on inhaler Branch FLUTICASONE 2021-08 Yes 50ug Use 50 mcg Univers PROPIONATE 0-29 in each ity of NASAL 13:20: nostril [place] 37 once daily Medical as needed Branch for Other (allergies ). ALBUTEROL 2021-08 Yes 8.5mg Inhale 8.5 U nivers INHALE 0-29 mg every 4 ity of 13:20: (four) [place] 37 hours as Medical needed Branch (wheezing) . omeprazole 2021-08 Yes 40mg Take 40 mg U nivers 40 mg 0-29 by mouth ity of capsule 13:20: at [place] 37 bedtime. Medical Branch pantoprazol 2021-08 Yes [id number] 40mg Take 1 Univers e 40 mg EC 0-29 tablet by ity of tablet 00:00: mouth at [place] 00 bedtime. Medical Branch pantoprazol 2021-08 Yes [id number] 40mg Take 1 Univers e 40 mg EC 0-29 tablet by ity of tablet 00:00: mouth at [place] bedtime. Medical Branch pantoprazol 2021-08 Yes [id number] 40mg Take 1 Univers e 40 mg EC 0-29 tablet by ity of tablet 00:00: mouth at [place] bedtime. Medical Branch pantoprazol 2021-08 Yes [id number] 40mg Take 1 Univers e 40 mg EC 0-29 tablet by ity of tablet 00:00: mouth at [place] bedtime. Medical Branch pantoprazol 2021-08 Yes [id number] 40mg Take 1 Univers e 40 mg EC 0-29 tablet by ity of tablet 00:00: mouth at [place] bedtime. Medical Branch pantoprazol 2021-08 Yes [id number] 40mg Take 1 Univers e 40 mg EC 0-29 tablet by ity of tablet 00:00: mouth at [place] bedtime. Medical Branch pantoprazol 2021-08 Yes [id number] 40mg Take 1 Univers e 40 mg EC 0-29 tablet by ity of tablet 00:00: mouth at [place] bedtime. Medical Branch pantoprazol 2021-08 Yes [id number] 40mg Take 1 Univers e 40 mg EC 0-29 tablet by ity of tablet 00:00: mouth at [place] bedtime. Medical Branch pantoprazol 2021-08 Yes [id number] 40mg Take 1 Univers e 40 mg EC 0-29 tablet by ity of tablet 00:00: mouth at [place] bedtime. Medical Branch pantoprazol 2021-08 Yes [id number] 40mg Take 1 Univers e 40 mg EC 0-29 tablet by ity of tablet 00:00: mouth at [place] 00 bedtime. Medical Branch pantoprazol 2021-08 Yes [id number] 40mg Take 1 Univers e 40 mg EC 0-29 tablet by ity of tablet 00:00: mouth at [place] 00 bedtime. Medical Branch pantoprazol 2021-08 Yes [id number] 40mg Take 1 Univers e 40 mg EC 0-29 tablet by ity of tablet 00:00: mouth at [place] 00 bedtime. Medical Branch pantoprazol 2021-08 Yes [id number] 40mg Take 1 Univers e 40 mg EC 0-29 tablet by ity of tablet 00:00: mouth at [place] 00 bedtime. Medical Branch pantoprazol 2021-08 Yes [id number] 40mg Take 1 Univers e 40 mg EC 0-29 tablet by ity of tablet 00:00: mouth at [place] bedtime. Medical Branch pantoprazol 2021-08 Yes [id number] 40mg Take 1 Univers e 40 mg EC 0-29 tablet by ity of tablet 00:00: mouth at [place] 00 bedtime. Medical Branch pantoprazol 2021-08 Yes [id number] 40mg Take 1 Univers e 40 mg EC 0-29 tablet by ity of tablet 00:00: mouth at [place] 00 bedtime. Medical Branch pantoprazol 2021-08 Yes [id number] 40mg Take 1 Univers e 40 mg EC 0-29 tablet by ity of tablet 00:00: mouth at [place] bedtime. Medical Branch pantoprazol 2021-08 Yes [id number] 40mg Take 1 Univers e 40 mg EC 0-29 tablet by ity of tablet 00:00: mouth at [place] [address] bedtime. Medical Branch pantoprazol 2021-08 Yes [id number] 40mg Take 1 Univers e 40 mg EC 0-29 tablet by ity of tablet 00:00: mouth at [place] [address] bedtime. Medical Branch pantoprazol 2021-08 Yes [id number] 40mg Take 1 Univers e 40 mg EC 0-29 tablet by ity of tablet 00:00: mouth at [place] [address] bedtime. Medical Branch pantoprazol 2021-08 Yes [id number] 40mg Take 1 Univers e 40 mg EC 0-29 tablet by ity of tablet 00:00: mouth at [place] [address] bedtime. Medical Branch pantoprazol 2021-08 Yes [id number] 40mg Take 1 Univers e 40 mg EC 0-29 tablet by ity of tablet 00:00: mouth at [place] 00 bedtime. Medical Branch pantoprazol 2021-08 Yes [id number] 40mg Take 1 Univers e 40 mg EC 0-29 tablet by ity of tablet 00:00: mouth at [place] 00 bedtime. Medical Branch pantoprazol 2021-08 Yes [id number] 40mg Take 1 Univers e 40 mg EC 0-29 tablet by ity of tablet 00:00: mouth at [place] [address] bedtime. Medical Branch pantoprazol 2021-08 Yes [id number] 40mg Take 1 Univers e 40 mg EC 0-29 tablet by ity of tablet 00:00: mouth at [place] 00 bedtime. Medical Branch pantoprazol 2021-08 Yes [id number] 40mg Take 1 Univers e 40 mg EC 0-29 tablet by ity of tablet 00:00: mouth at [place] 00 bedtime. Medical Branch pantoprazol 2021-08 Yes [id number] 40mg Take 1 Univers e 40 mg EC 0-29 tablet by ity of tablet 00:00: mouth at [place] 00 bedtime. Medical Branch pantoprazol 2021-08 Yes [id number] 40mg Take 1 Univers e 40 mg EC 0-29 tablet by ity of tablet 00:00: mouth at [place] 00 bedtime. Medical Branch pantoprazol 2021-08 Yes [id number] 40mg Take 1 Univers e 40 mg EC 0-29 tablet by ity of tablet 00:00: mouth at [place] 00 bedtime. Medical Branch pantoprazol 2021-08 Yes [id number] 40mg Take 1 Univers e 40 mg EC 0-29 tablet by ity of tablet 00:00: mouth at [place] 00 bedtime. Medical Branch pantoprazol 2021-08 Yes [id number] 40mg Take 1 Univers e 40 mg EC 0-29 tablet by ity of tablet 00:00: mouth at [place] 00 bedtime. Medical Branch pantoprazol 2021-08 Yes [id number] 40mg Take 1 Univers e 40 mg EC 0-29 tablet by ity of tablet 00:00: mouth at [place] 00 bedtime. Medical Branch pantoprazol 2021-08 Yes [id number] 40mg Take 1 Univers e 40 mg EC 0-29 tablet by ity of tablet 00:00: mouth at [place] 00 bedtime. Medical Branch pantoprazol 2021-08 Yes [id number] 40mg Take 1 Univers e 40 mg EC 0-29 tablet by ity of tablet 00:00: mouth at [place] 00 bedtime. Medical Branch pantoprazol 2021-08 Yes [id number] 40mg Take 1 Univers e 40 mg EC 0-29 tablet by ity of tablet 00:00: mouth at [place] 00 bedtime. Medical Branch pantoprazol 2021-08 Yes [id number] 40mg Take 1 Univers e 40 mg EC 0-29 tablet by ity of tablet 00:00: mouth at [place] 00 bedtime. Medical Branch pantoprazol 2021-08 Yes [id number] 40mg Take 1 Univers e 40 mg EC 0-29 tablet by ity of tablet 00:00: mouth at [place] 00 bedtime. Medical Branch pantoprazol 2021-08 Yes [id number] 40mg Take 1 Univers e 40 mg EC 0-29 tablet by ity of tablet 00:00: mouth at [place] 00 bedtime. Medical Branch pantoprazol 2021-08 Yes [id number] 40mg Take 1 Univers e 40 mg EC 0-29 tablet by ity of tablet 00:00: mouth at [place] 00 bedtime. Medical Branch pantoprazol 2021-08 Yes [id number] 40mg Take 1 Univers e 40 mg EC 0-29 tablet by ity of tablet 00:00: mouth at [place] 00 bedtime. Medical Branch pantoprazol 2021-08- No [id number] 40mg Take 1 Univers e 40 mg EC 0-29 01-27 tablet by ity of tablet 00:00: 00:00 mouth at [place] 00 :00 bedtime. Medical Branch pantoprazol 2021-08- No [id number] 40mg Take 1 Univers e 40 mg EC 0-29 01-27 tablet by ity of tablet 00:00: 00:00 mouth at [place] 00 :00 bedtime. Medical Branch pantoprazol 2021-08- No [id number] 40mg Take 1 Univers e 40 mg EC 0-29 01-27 tablet by ity of tablet 00:00: 00:00 mouth at [place] 00 :00 bedtime. Medical Branch HYDROcodone 2021-08- No [id number] 1{tbl} Take 1 U nivers -acetaminop 0-29 11-06 tablet by it y of hen 5-325 00:00: 04:59 mouth [place] mg tablet 00 :00 every 6 Medical (six) Branch hours as needed for Pain (scale 4-6) for up to 7 days. Indication s: acute pain HYDROcodone 2021-08- No [id number] 1{tbl} Take 1 U nivers -acetaminop 0-29 11-06 tablet by it y of hen 5-325 00:00: 04:59 mouth [place] mg tablet 00 :00 every 6 Medical (six) Branch hours as needed for Pain (scale 4-6) for up to 7 days. Indication s: acute pain HYDROcodone 2021-08 No 4647 1{tbl} Take 1 U nivers -acetaminop 06-12 tablet by it y of hen 5-325 00:00: 04:59 mouth [place] mg tablet 00 :00 every 6 Medical (six) Branch hours as needed for Pain (scale 4-6) for up to 7 days. Indication s: acute pain HYDROcodone 2021-08 No 4647 1{tbl} Take 1 U nivers -acetaminop 06-12 tablet by it y of hen 5-325 00:00: 04:59 mouth [place] mg tablet 00 :00 every 6 Medical (six) Branch hours as needed for Pain (scale 4-6) for up to 7 days. Indication s: acute pain ceFAZolin 2021-08 No 1000mg 1,000 mg, Univers (ANCEF) 06-04 Intravenou ity o f injection 22:45: 13:41 s, Q8H [place] 1,000 mg 00 :00 ABX, 3 Medical doses, Branch First dose on Mon06/03/22 at 1745, Last dose on Mon06/04/22 at 0945
Re ason for Anti-Infec tive: Surgical Prophylaxi s
Surgi benjie Prophylaxi s: Neurosurge ry
Dura tion of therapy: within 24 hours of surgery morpHINE (2021-08 Yes 4mg 4 mg, Slow Univers mg/mL) 0 IV Push, ity of injection 4 19:52: Q4HPRN, [place] mg 00 Starting Medical on Mon06/03/22 at 1452, Until Discontinu ed, Routine, Pain (scale 7-10) morpHINE (4 2021-08 No 4mg 4 mg, Slow Univers mg/mL) 06-04 IV Push, ity of injection 4 19:52: 20:20 Q4HPRN, [place] mg 00 :38 Starting Medical on Mon06/03/22 at 1452, Until Mon06/04/22 at 1520, Routine, Pain (scale 7-10) ipratropium 2021-08 No 3mL 3 mL, Univ ers -albuteroL 006-03 Inhalation it y of (DUONEB) 18:45: 17:57 , ONCE, 1 [place] 0.5 mg-3 00 :00 dose, On Medical mg(2.5 mg Fri Branch base)/3 mL 06/03/22 nebulizer at 1345, solution 3 Routine mL HYDROcodone 2021-08- No 1{tbl} 1 tablet, Univers -acetaminop 06-03 Oral, ity of hen (NORCO 16:45: 17:30 ONCE, 1 [place] 5) 5-325 mg 00 :00 dose, On Medi benjie tablet 1 Fri Branch tablet 06/03/22 at 1145, Routine, PACU HYDROmorpho 2021-08- No .2mg 0.2 mg, Un claudia ne 06-03 Slow IV ity of (DILAUDID) 16:31: 19:34 Push, [place] injection 55 :12 Q5MIN PRN, Medi benjie 0.2 mg 10 doses, Branch Starting on Mon06/03/22 at 1131, Until Mon06/03/22 at 1434, Routine, Pain (scale 7-10), PACU
Us e approved by (Faculty): PACU USE -ANESTHESI A SERVICE-HY DROMORPHON E INJECTIONS vancomycin 2021-08- No PRN, Univer s (VANCOCIN) 06-03 Starting ity of 1 g in 15:27: 16:02 on Mon sodium 00 :41 06/03/22 Medical chloride at 1027, Branch 0.9 % Until Mon irrigation 06/03/22 at 1102, 1,000 mL, Intra-op thrombin 2021-08- No PRN, Univers topical 06-03 Starting ity of solution 15:14: 16:02 on Mon [place] 00 :41 06/03/22 Medical at 1014, Branch Until Mon06/03/22 at 1102, Routine, Intra-op lidocaine-e 2021-08- No PRN, Unive rs pinephrine 06-03 Starting ity of (XYLOCAINE 14:35: 16:02 on Fri [place] WITH 00 :41 06/03/22 Medical EPINEPHRINE at 0935, Bran ch ) 0.5 Until Mon %-1:200,000 06/03/22 injection at 1102, Routine, Intra-op morpHINE (2 2021-08 No 2mg 2 mg, Slow Univers mg/mL) 006-03 IV Push, ity of injection 2 14:15: 13:57 ONCE, 1 [place] mg 00 :00 dose, On Medical Fri Branch 06/03/22 at 0915, Routine docusate 2021-08 Yes 100mg 100 mg, Unive rs (COLACE) 0- Oral, ity of capsule 100 14:00: DAILY, [place] mg 00 First dose Medical on [facility] Branch 06/03/22 at 0900, Until Discontinu ed, Routine docusate 2021-08 No 100mg 100 mg, Univ ers (COLACE) 006-04 Oral, ity of capsule 100 14:00: 20:20 DAILY, [place] mg 00 :38 First dose Medical on [facility] Branch 06/03/22 at 0900, Until Discontinu ed, Routine levothyroxi 2021-08 Yes 137ug 137 mcg, U nivers ne 0 Oral, ity of (SYNTHROID) 03:30: Q24H, [place] tablet 137 00 First dose Med ical mcg on [facility] Branch 06/02/22 at 2230, Until Discontinu ed, Routine levothyroxi 2021-08 No 137ug 137 mcg, Univers ne 006-04 Oral, ity of (SYNTHROID) 03:30: 20:20 Q24H, [place] tablet 137 00 :38 First dose Med ical mcg on [facility] Branch 06/02/22 at 2230, Until Discontinu ed, Routine pantoprazol 2021-08 Yes 40mg 40 mg, Univ ers e 0 Oral, QHS, ity of (PROTONIX) 02:30: First dose [place] EC tablet 00 on [facility] 40 mg 06/02/22 Branch at 2130, Until Discontinu ed, Routine pantoprazol 2021-08 No 40mg 40 mg, Uni vers e 006-04 Oral, QHS, ity of (PROTONIX) 02:30: 20:20 First dose [place] EC tablet 00 :38 on [facility] Medical 40 mg 06/02/22 Branch at 2130, Until Discontinu ed, Routine FLUoxetine 2021-08 Yes 20mg 20 mg, Unive rs (PROZAC) 0-28 Oral, QHS, ity o f capsule 20 02:00: First dose [place] mg 00 on [facility] 06/02/22 Branch at 2100, Until Discontinu ed amitriptyli 2021-08 Yes 25mg 25 mg, Univ ers ne (ELAVIL) 0-28 Oral, QHS, it y of tablet 25 02:00: First dose [place] mg 00 on [facility] 06/02/22 Branch at 2100, Until Discontinu ed, Routine FLUoxetine 2021-08- No 20mg 20 mg, [facility] ers (PROZAC) 0 1029 Oral, QHS, ity of capsule 20 02:00: 20:20 First dose [place] mg 00 :38 on [facility] 06/02/22 Branch at 2100, Until Discontinu ed amitriptyli 2021-08- No 25mg 25 mg, Uni vers ne (ELAVIL) 0 1029 Oral, QHS, i ty of tablet 25 02:00: 20:20 First dose [place] mg 00 :38 on [facility] 06/02/22 Branch at 2100, Until Discontinu ed, Routine Fluticasone 2021-08 Yes 1{puff} 1 Puff, Univers -Salmeterol 0 Inhalation it y of (ADVAIR) 01:00: , Q12H, [place] 500-50 00 First dose Medical mcg/dose on [facility] inhalation 06/02/22 disk 1 Puff at 2000, Until Discontinu ed, Routine Fluticasone 2021-08 No 1{puff} 1 Puff, Univers -Salmeterol 006-04 Inhalation i ty of (ADVAIR) 01:00: 20:20 , Q12H, [place] 500-50 00 :38 First dose Medical mcg/dose on [facility] inhalation 06/02/22 disk 1 Puff at 2000, Until Discontinu ed, Routine enoxaparin 2021-08- No 40mg 40 mg, [facility] ers (LOVENOX) 0 10 Subcutaneo ity of injection 22:00: 13:22 us, Q24H, [place] 40 mg 00 :55 First dose Medical on [facility] Branch 06/02/22 at 1700, Until Discontinu ed, Routine gadoteridol 2021-08- No [id number] .2mL/kg 19.86 mL Univers (PROHANCE-2 0-06-02 (0.2 mL/kg i ty of 0 mL) 21:45: 21:45 ?99.3 kg), [place] injection 00 :00 Intravenou Medi benjie 19.86 mL s, ONCE, 1 Branc h dose, On [place] 06/02/22 at 1645, Routine ondansetron 2021-08 Yes 4mg 4 mg, Slow Univers (ZOFRAN 0-27 IV Push, ity of (PF)) 19:02: Q6HPRN, [place] injection 4 30 Starting Medi benjie mg on [facility] Branch 06/02/22 at 1402, Until Discontinu ed, Routine, Nausea and Vomiting (N/V) ondansetron 2021-08- No 4mg 4 mg, Slow Univers (ZOFRAN 0-27 10- IV Push, ity of (PF)) 19:02: 20:20 Q6HPRN, [place] injection 4 30 :38 Starting Medi benjie mg on [place] Branch 06/02/22 at 1402, Until 06/04/22 at 1520, Routine, Nausea and Vomiting (N/V) HYDROcodone 2021-08- No 1{tbl} 1 tablet, Univers -acetaminop 0- 10 Oral, ity of hen (NORCO 19:02: 19:01 Q6HPRN, [place] 5) 5-325 mg 26 :26 Starting Medi benjie tablet 1 on [facility] Branch tablet 06/02/22 at 1402, Until 06/04/22 at 1401, Routine, Pain (scale 4-6) HYDROcodone 2021-08- No 1{tbl} 1 tablet, Univers -acetaminop 0-27 10 Oral, ity of hen (NORCO 19:02: 19:01 Q6HPRN, [place] 5) 5-325 mg 26 :26 Starting Medi benjie tablet 1 on [place] Branch tablet 06/02/22 at 1402, Until 06/04/22 at 1401, Routine, Pain (scale 4-6) acetaminoph 2021-08 Yes 650mg 650 mg, Un claudia en 0- Oral, ity of (TYLENOL) 19:02: Q6HPRN, [place] tablet 650 24 Starting Medic al mg on [place] Branch 06/02/22 at 1402, Until Discontinu ed, Routine, Pain (scale 1-3) acetaminoph 2021-08- No 650mg 650 mg, U nivers en 06-04 Oral, ity of (TYLENOL) 19:02: 20:20 Q6HPRN, [place] tablet 650 24 :38 Starting Medic al mg on [place] Branch 06/02/22 at 1402, Until 06/04/22 at 1520, Routine, Pain (scale 1-3) ketorolac 2021-08- No 30mg 30 mg, Unive rs (TORADOL) 06-02 Slow IV ity of injection 16:45: 16:32 Push, [place] 30 mg 00 :00 ONCE, 1 Medical dose, On Branch [place] 06/02/22 at 1145, Routine morpHINE (2 2021-08 No 6mg 6 mg, Slow Univers mg/mL) 06-02 IV Push, ity of injection 6 16:00: 16:32 ONCE, 1 [place] mg 00 :00 dose, On Medical [facility] Branch 06/02/22 at 1100, STAT budesonide- 2021-08 Yes 2{puff} Inhale 2 Univers formoteroL 0-12 Puffs. ity of 160-4.5 11:25: [place] mcg/actuati 05 Medical on inhaler Branch ALBUTEROL 2021-08 Yes 8.5mg Inhale 8.5 U nivers INHALE 0-12 mg every 4 ity of 11:25: (four) [place] 05 hours as Medical needed Branch (wheezing) . budesonide- 2021-08 Yes 2{puff} Inhale 2 Univers formoteroL 0-12 Puffs. ity of 160-4.5 11:25: [place] mcg/actuati 05 Medical on inhaler Branch ALBUTEROL 2021-08 Yes 8.5mg Inhale 8.5 U nivers INHALE 0-12 mg every 4 ity of 11:25: (four) [place] 05 hours as Medical needed Branch (wheezing) . budesonide- 2021-08 Yes 2{puff} Inhale 2 Univers formoteroL 0-12 Puffs. ity of 160-4.5 11:25: [place] mcg/actuati 05 Medical on inhaler Branch ALBUTEROL 2021-08 Yes 8.5mg Inhale 8.5 U nivers INHALE 0-12 mg every 4 ity of 11:25: (four) [place] 05 hours as Medical needed Branch (wheezing) . budesonide- 2021-08 Yes 2{puff} Inhale 2 Univers formoteroL 0-12 Puffs. ity of 160-4.5 11:25: [place] mcg/actuati 05 Medical on inhaler Branch ALBUTEROL 2021-08 Yes 8.5mg Inhale 8.5 U nivers INHALE 0-12 mg every 4 ity of 11:25: (four) [place] 05 hours as Medical needed Branch (wheezing) . budesonide- 2021-08 Yes 2{puff} Inhale 2 Univers formoteroL 0-12 Puffs. ity of 160-4.5 11:25: [place] mcg/actuati 05 Medical on inhaler Branch ALBUTEROL 2021-08 Yes 8.5mg Inhale 8.5 U nivers INHALE 0-12 mg every 4 ity of 11:25: (four) [place] 05 hours as Medical needed Branch (wheezing) . budesonide- 2021-08 Yes 2{puff} Inhale 2 Univers formoteroL 0-12 Puffs. ity of 160-4.5 11:25: [place] mcg/actuati 05 Medical on inhaler Branch ALBUTEROL 2021-08 Yes 8.5mg Inhale 8.5 U nivers INHALE 0-12 mg every 4 ity of 11:25: (four) [place] 05 hours as Medical needed Branch (wheezing) . budesonide- 2021-08 Yes 2{puff} Inhale 2 Univers formoteroL 0-12 Puffs. ity of 160-4.5 11:25: [place] mcg/actuati 05 Medical on inhaler Branch ALBUTEROL 2021-08 Yes 8.5mg Inhale 8.5 U nivers INHALE 0-12 mg every 4 ity of 11:25: (four) [place] 05 hours as Medical needed Branch (wheezing) . budesonide- 2021-08 Yes 2{puff} Inhale 2 Univers formoteroL 0-12 Puffs. ity of 160-4.5 11:25: [place] mcg/actuati 05 Medical on inhaler Branch ALBUTEROL 2021-08 Yes 8.5mg Inhale 8.5 U nivers INHALE 0-12 mg every 4 ity of 11:25: (four) [place] 05 hours as Medical needed Branch (wheezing) . budesonide- 2021-08 Yes 2{puff} Inhale 2 Univers formoteroL 0-12 Puffs. ity of 160-4.5 11:25: [place] mcg/actuati 05 Medical on inhaler Branch ALBUTEROL 2021-08 Yes 8.5mg Inhale 8.5 U nivers INHALE 0-12 mg every 4 ity of 11:25: (four) [place] 05 hours as Medical needed Branch (wheezing) . budesonide- 2021-08 Yes 2{puff} Inhale 2 Univers formoteroL 0-12 Puffs. ity of 160-4.5 11:25: [place] mcg/actuati 05 Medical on inhaler Branch ALBUTEROL 2021-08 Yes 8.5mg Inhale 8.5 U nivers INHALE 0-12 mg every 4 ity of 11:25: (four) [place] 05 hours as Medical needed Branch (wheezing) . budesonide- 2021-08 Yes 2{puff} Inhale 2 Univers formoteroL 0-12 Puffs. ity of 160-4.5 11:25: [place] mcg/actuati 05 Medical on inhaler Branch ALBUTEROL 2021-08 Yes 8.5mg Inhale 8.5 U nivers INHALE 0-12 mg every 4 ity of 11:25: (four) [place] 05 hours as Medical needed Branch (wheezing) . nystatin 2021-08- No [id number] Take 10 mL Univers 100,000 0-12 10-20 U by mouth 4 ity o f unit/mL 00:00: 04:59 (four) [place] suspension 00 :00 times Medical daily for Branch 7 days. nystatin 2021-08- No [id number] Take 10 mL Univers 100,000 0-12 10-20 U by mouth 4 ity o f unit/mL 00:00: 04:59 (four) [place] suspension 00 :00 times Medical daily for Branch 7 days. nystatin 2021-08- No [id number] Take 10 mL [facility] 100,000 0-12 10-20 U by mouth 4 ity o f unit/mL 00:00: 04:59 (four) [place] suspension 00 :00 times Medical daily for Branch 7 days. nystatin 2021-08- No [id number] Take 10 mL [facility] 100,000 0-12 10-20 U by mouth 4 ity o f unit/mL 00:00: 04:59 (four) [place] suspension 00 :00 times Medical daily for Branch 7 days. fluconazole 2021-08- No [id number] 150mg Take 1 Univers (DIFLUCAN) 0-12 10-13 tablet by ity of 150 mg 00:00: 04:59 mouth [place] tablet 00 :00 now for 1 Medical dose. Branch fluconazole 2021-08- No [id number] 150mg Take 1 Univers (DIFLUCAN) 0-12 10-13 tablet by ity of 150 mg 00:00: 04:59 mouth once [place] tablet 00 :00 now for 1 Medical dose. Branch FLUTICASONE 2021-08 Yes 50ug Use 50 mcg Univers PROPIONATE 0-09 in each ity of NASAL 16:32: nostril [place] 20 once daily Medical as needed Branch for Other (allergies ). FLUTICASONE 2021-08 Yes 50ug Use 50 mcg Univers PROPIONATE 0-09 in each ity of NASAL 16:32: nostril [place] 20 once daily Medical as needed Branch for Other (allergies ). FLUTICASONE 2021-08 Yes 50ug Use 50 mcg Univers PROPIONATE 0-09 in each ity of NASAL 16:32: nostril [place] 20 once daily Medical as needed Branch for Other (allergies ). FLUTICASONE 2021-08 Yes 50ug Use 50 mcg Univers PROPIONATE 0-09 in each ity of NASAL 16:32: nostril [place] 20 once daily Medical as needed Branch for Other (allergies ). FLUTICASONE 2021-08 Yes 50ug Use 50 mcg Univers PROPIONATE 0-09 in each ity of NASAL 16:32: nostril [place] 20 once daily Medical as needed Branch for Other (allergies ). FLUTICASONE 2021-08 Yes 50ug Use 50 mcg Univers PROPIONATE 0-09 in each ity of NASAL 16:32: nostril [place] 20 once daily Medical as needed Branch for Other (allergies ). FLUTICASONE 2021-08 Yes 50ug Use 50 mcg Univers PROPIONATE 0-09 in each ity of NASAL 16:32: nostril [place] 20 once daily Medical as needed Branch for Other (allergies ). FLUTICASONE 2021-08 Yes 50ug Use 50 mcg Univers PROPIONATE 0-09 in each ity of NASAL 16:32: nostril [place] 20 once daily Medical as needed Branch for Other (allergies ). FLUTICASONE 2021-08 Yes 50ug Use 50 mcg Univers PROPIONATE 0-09 in each ity of NASAL 16:32: nostril [place] 20 once daily Medical as needed Branch for Other (allergies ). FLUTICASONE 2021-08 Yes 50ug Use 50 mcg Univers PROPIONATE 0-09 in each ity of NASAL 16:32: nostril [place] 20 once daily Medical as needed Branch for Other (allergies ). FLUTICASONE 2021-08 Yes 50ug Use 50 mcg Univers PROPIONATE 0-09 in each ity of NASAL 16:32: nostril [place] 20 once daily Medical as needed Branch for Other (allergies ). budesonide- 2021-08 Yes 2{puff} Inhale 2 Univers formoteroL 0-09 Puffs. ity of 160-4.5 16:32: [place] mcg/actuati 20 Medical on inhaler Branch FLUTICASONE 2021-08 Yes 50ug Use 50 mcg Univers PROPIONATE 0-09 in each ity of NASAL 16:32: nostril [place] 20 once daily Medical as needed Branch for Other (allergies ). ALBUTEROL 2021-08 Yes 8.5mg Inhale 8.5 U nivers INHALE 0-09 mg every 4 ity of 16:32: (four) [place] 20 hours as Medical needed Branch (wheezing) . acetaminoph 2021-08- No 1{tbl} Take 1 U nivers en-codeine 0-09 10-09 tablet by ity of 300-30 mg 10:46: 00:00 mouth [place] tablet 19 :00 every 6 Medical (six) Branch hours as needed. acetaminoph 2021-08- No 1{tbl} Take 1 U nivers en-codeine 0-09 10-09 tablet by ity of 300-30 mg 10:46: 00:00 mouth [place] tablet 19 :00 every 6 Medical (six) Branch hours as needed. tiZANidine 2021-08 Yes 4mg 4 mg, Univer s (ZANAFLEX) 0-09 Oral, Q8H, ity of tablet 4 mg 03:00: First dose [place] 00 on [facility] 05/14/22 at Branch 2200, Until Discontinu ed, Routine amitriptyli 2021-08 Yes 25mg 25 mg, Univ ers ne (ELAVIL) 0-09 Oral, QHS, it y of tablet 25 02:00: First dose [place] mg 00 on [facility] 05/14/22 at Branch 2100, Until Discontinu ed, Routine pregabalin 2021-08- No [id number] 150mg Take 1 [facility] 150 mg 008-14 capsule by ity of capsule 00:00: 05:59 mouth in [place] 00 :00 the Medical morning Branch and 1 capsule at noon and 1 capsule in the evening. Do all this for 90 days. amitriptyli 2021-08- No [id number] 25mg Take 1 Univers ne 25 mg 008-14 tablet by ity o f tablet 00:00: 05:59 mouth at [place] 00 :00 bedtime Medical for 90 Branch days. tiZANidine 2021-08- No [id number] 4mg Take 1 Univers 4 mg 008-14 capsule by ity of capsule 00:00: 05:59 mouth in [place] 00 :00 the Medical morning Branch and 1 capsule at noon and 1 capsule in the evening. Do all this for 90 days. docusate 2021-08- No [id number] 100mg Take 1 Univers (COLACE) 008-14 capsule by ity of 100 mg 00:00: 05:59 mouth in [place] capsule 00 :00 the [facility] Branch for 90 days. pregabalin 2021-08- No [id number] 150mg Take 1 Univers 150 mg 008-14 capsule by ity of capsule 00:00: 05:59 mouth in [place] 00 :00 the Medical morning Branch and 1 capsule at noon and 1 capsule in the evening. Do all this for 90 days. amitriptyli 2021-08- No [id number] 25mg Take 1 Univers ne 25 mg 0-09 01-08 tablet by ity o f tablet 00:00: 05:59 mouth at [place] 00 :00 bedtime Medical for 90 Branch days. tiZANidine 2021-08- No [id number] 4mg Take 1 Univers 4 mg 0-04 07-08 capsule by ity of capsule 00:00: 05:59 mouth in [place] 00 :00 the Medical morning Branch and 1 capsule at noon and 1 capsule in the evening. Do all this for 90 days. docusate 2021-08- No [id number] 100mg Take 1 Univers (COLACE) 0-08 capsule by ity of 100 mg 00:00: 05:59 mouth in [place] capsule 00 :00 the Medical morning Branch for 90 days. pregabalin 2021-08- No [id number] 150mg Take 1 Univers 150 mg 0-08 capsule by ity of capsule 00:00: 05:59 mouth in [place] 00 :00 the Medical morning Branch and 1 capsule at noon and 1 capsule in the evening. Do all this for 90 days. amitriptyli 2021-08- No [id number] 25mg Take 1 Univers ne 25 mg 008 tablet by ity o f tablet 00:00: 05:59 mouth at [place] 00 :00 bedtime Medical for 90 Branch days. tiZANidine 2021-08- No [id number] 4mg Take 1 Univers 4 mg 0-08 capsule by ity of capsule 00:00: 05:59 mouth in [place] 00 :00 the Medical morning Branch and 1 capsule at noon and 1 capsule in the evening. Do all this for 90 days. docusate 2021-08- No [id number] 100mg Take 1 Univers (COLACE) 0-08 capsule by ity of 100 mg 00:00: 05:59 mouth in [place] capsule 00 :00 the Medical morning Branch for 90 days. pregabalin 2021-08- No [id number] 150mg Take 1 Univers 150 mg 0-08 capsule by ity of capsule 00:00: 05:59 mouth in [place] 00 :00 the Medical morning Branch and 1 capsule at noon and 1 capsule in the evening. Do all this for 90 days. amitriptyli 2021-08- No [id number] 25mg Take 1 Univers ne 25 mg 0-08 tablet by ity o f tablet 00:00: 05:59 mouth at [place] 00 :00 bedtime Medical for 90 Branch days. tiZANidine 2021-08- No [id number] 4mg Take 1 Univers 4 mg 0-08 capsule by ity of capsule 00:00: 05:59 mouth in [place] 00 :00 the Medical morning Branch and 1 capsule at noon and 1 capsule in the evening. Do all this for 90 days. docusate 2021-08- No [id number] 100mg Take 1 Univers (COLACE) 0-08 capsule by ity of 100 mg 00:00: 05:59 mouth in [place] capsule 00 :00 the Medical morning Branch for 90 days. pregabalin 2021-08- No [id number] 150mg Take 1 [facility] 150 mg 0-08 capsule by ity of capsule 00:00: 05:59 mouth in [place] 00 :00 the Medical morning Branch and 1 capsule at noon and 1 capsule in the evening. Do all this for 90 days. amitriptyli 2021-08- No [id number] 25mg Take 1 Univers ne 25 mg 008 tablet by ity o f tablet 00:00: 05:59 mouth at [place] 00 :00 bedtime Medical for 90 Branch days. tiZANidine 2021-08- No [id number] 4mg Take 1 Univers 4 mg 0-08 capsule by ity of capsule 00:00: 05:59 mouth in [place] 00 :00 the Medical morning Branch and 1 capsule at noon and 1 capsule in the evening. Do all this for 90 days. docusate 2021-08- No [id number] 100mg Take 1 Univers (COLACE) 0-08 capsule by ity of 100 mg 00:00: 05:59 mouth in [place] capsule 00 :00 the Medical morning Branch for 90 days. pregabalin 2021-08- No [id number] 150mg Take 1 [facility] 150 mg 0-04 07-08 capsule by ity of capsule 00:00: 05:59 mouth in [place] 00 :00 the Medical morning Branch and 1 capsule at noon and 1 capsule in the evening. Do all this for 90 days. amitriptyli 2021-08- No [id number] 25mg Take 1 Univers ne 25 mg 0-04 07-08 tablet by ity o f tablet 00:00: 05:59 mouth at [place] 00 :00 bedtime Medical for 90 Branch days. tiZANidine 2021-08- No [id number] 4mg Take 1 Univers 4 mg 0-04 07-08 capsule by ity of capsule 00:00: 05:59 mouth in [place] 00 :00 the Medical morning Branch and 1 capsule at noon and 1 capsule in the evening. Do all this for 90 days. docusate 2021-08- No [id number] 100mg Take 1 Univers (COLACE) 0-08 capsule by ity of 100 mg 00:00: 05:59 mouth in [place] capsule 00 :00 the [facility] morning Branch for 90 days. pregabalin 2021-08- No [id number] 150mg Take 1 Univers 150 mg 0-08 capsule by ity of capsule 00:00: 05:59 mouth in [place] 00 :00 the [facility] morning Branch and 1 capsule at noon and 1 capsule in the evening. Do all this for 90 days. amitriptyli 2021-08- No [id number] 25mg Take 1 Univers ne 25 mg 0-08 tablet by ity o f tablet 00:00: 05:59 mouth at [place] 00 :00 bedtime Medical for 90 Branch days. tiZANidine 2021-08- No [id number] 4mg Take 1 Univers 4 mg 0-08 capsule by ity of capsule 00:00: 05:59 mouth in [place] 00 :00 the Medical morning Branch and 1 capsule at noon and 1 capsule in the evening. Do all this for 90 days. docusate 2021-08- No [id number] 100mg Take 1 Univers (COLACE) 0-08 capsule by ity of 100 mg 00:00: 05:59 mouth in [place] capsule 00 :00 the [facility] morning Branch for 90 days. pregabalin 2021-08- No [id number] 150mg Take 1 Univers 150 mg 0-04 07-08 capsule by ity of capsule 00:00: 05:59 mouth in [place] 00 :00 the Medical morning Branch and 1 capsule at noon and 1 capsule in the evening. Do all this for 90 days. amitriptyli 2021-08- No [id number] 25mg Take 1 Univers ne 25 mg 0-04 07-08 tablet by ity o f tablet 00:00: 05:59 mouth at [place] 00 :00 bedtime Medical for 90 Branch days. tiZANidine 2021-08- No [id number] 4mg Take 1 Univers 4 mg 0-04 07-08 capsule by ity of capsule 00:00: 05:59 mouth in [place] 00 :00 the Medical morning Branch and 1 capsule at noon and 1 capsule in the evening. Do all this for 90 days. docusate 2021-08- No [id number] 100mg Take 1 Univers (COLACE) 0-08 capsule by ity of 100 mg 00:00: 05:59 mouth in [place] capsule 00 :00 the Medical morning Branch for 90 days. pregabalin 2021-08- No [id number] 150mg Take 1 [facility] 150 mg 0-04 07-08 capsule by ity of capsule 00:00: 05:59 mouth in [place] 00 :00 the Medical morning Branch and 1 capsule at noon and 1 capsule in the evening. Do all this for 90 days. amitriptyli 2021-08- No [id number] 25mg Take 1 Univers ne 25 mg 0-08 tablet by ity o f tablet 00:00: 05:59 mouth at [place] 00 :00 bedtime Medical for 90 Branch days. tiZANidine 2021-08- No [id number] 4mg Take 1 Univers 4 mg 0-08 capsule by ity of capsule 00:00: 05:59 mouth in [place] 00 :00 the Medical morning Branch and 1 capsule at noon and 1 capsule in the evening. Do all this for 90 days. docusate 2021-08- No [id number] 100mg Take 1 Univers (COLACE) 0- 01-08 capsule by ity of 100 mg 00:00: 05:59 mouth in [place] capsule 00 :00 the Medical morning Branch for 90 days. pregabalin 2021-08- No [id number] 150mg Take 1 Univers 150 mg 0-09 -08 capsule by ity of capsule 00:00: 05:59 mouth in [place] 00 :00 the Medical morning Branch and 1 capsule at noon and 1 capsule in the evening. Do all this for 90 days. amitriptyli 2021-08- No [id number] 25mg Take 1 Univers ne 25 mg 0-08 tablet by ity o f tablet 00:00: 05:59 mouth at [place] 00 :00 bedtime Medical for 90 Branch days. tiZANidine 2021-08- No [id number] 4mg Take 1 Univers 4 mg 008 capsule by ity of capsule 00:00: 05:59 mouth in [place] 00 :00 the Medical morning Branch and 1 capsule at noon and 1 capsule in the evening. Do all this for 90 days. docusate 2021-08- No [id number] 100mg Take 1 Univers (COLACE) 008-14 capsule by ity of 100 mg 00:00: 05:59 mouth in [place] capsule 00 :00 the Medical morning Branch for 90 days. pregabalin 2021-08- No [id number] 150mg Take 1 [facility] 150 mg 008-14 capsule by ity of capsule 00:00: 05:59 mouth in [place] 00 :00 the Medical morning Branch and 1 capsule at noon and 1 capsule in the evening. Do all this for 90 days. amitriptyli 2021-08- No [id number] 25mg Take 1 Univers ne 25 mg 008-14 tablet by ity o f tablet 00:00: 05:59 mouth at [place] 00 :00 bedtime Medical for 90 Branch days. tiZANidine 2021-08- No [id number] 4mg Take 1 [facility] 4 mg 008 capsule by [facility] capsule 00:00: 05:59 mouth in [place] 00 :00 the Medical morning Branch and 1 capsule at noon and 1 capsule in the evening. Do all this for 90 days. docusate 2021-08- No [id number] 100mg Take 1 [facility] ([facility]) 008 capsule by [facility] of 100 mg 00:00: 05:59 mouth in [place] capsule 00 :00 the Medical morning Branch for 90 days. pregabalin 2021-08- No [id number] 150mg Take 1 [facility] 150 mg 0-08 capsule by [facility] of capsule 00:00: 05:59 mouth in [place] 00 :00 the Medical morning Branch and 1 capsule at noon and 1 capsule in the evening. Do all this for 90 days. amitriptyli 2021-08- No [id number] 25mg Take 1 [facility] ne 25 mg 0-04 07-08 tablet by [facility] o f tablet 00:00: 05:59 mouth at [place] 00 :00 bedtime Medical for 90 Branch days. tiZANidine 2021-08- No [id number] 4mg Take 1 [facility] 4 mg 0-04 07-08 capsule by [facility] of capsule 00:00: 05:59 mouth in [place] 00 :00 the Medical morning Branch and 1 capsule at noon and 1 capsule in the evening. Do all this for 90 days. docusate 2021-08- No [id number] 100mg Take 1 [facility] ([facility]) 0-08 capsule by [facility] of 100 mg 00:00: 05:59 mouth in [place] capsule 00 :00 the [facility] morning Branch for 90 days. pregabalin 2021-08- No [id number] 150mg Take 1 [facility] 150 mg 0-08 capsule by [facility] of capsule 00:00: 05:59 mouth in [place] 00 :00 the [facility] morning Branch and 1 capsule at noon and 1 capsule in the evening. Do all this for 90 days. amitriptyli 2021-08- No [id number] 25mg Take 1 [facility] ne 25 mg 0-08 tablet by [facility]y o f tablet 00:00: 05:59 mouth at [place] 00 :00 bedtime Medical for 90 Branch days. tiZANidine 2021-08- No [id number] 4mg Take 1 [facility] 4 mg 0-08 capsule by [facility] of capsule 00:00: 05:59 mouth in [place] 00 :00 the Medical morning Branch and 1 capsule at noon and 1 capsule in the evening. Do all this for 90 days. docusate 2021-08- No [id number] 100mg Take 1 [facility] ([facility]) 0- 01-08 capsule by [facility] of 100 mg 00:00: 05:59 mouth in [place] capsule 00 :00 the [facility] morning Branch for 90 days. pregabalin 2021-08- No [id number] 150mg Take 1 [facility] 150 mg 0-04 07-08 capsule by [facility] of capsule 00:00: 05:59 mouth in [place] 00 :00 the Medical morning Branch and 1 capsule at noon and 1 capsule in the evening. Do all this for 90 days. amitriptyli 2021-08- No [id number] 25mg Take 1 [facility] ne 25 mg 0-04 07-08 tablet by [facility] o f tablet 00:00: 05:59 mouth at [place] 00 :00 bedtime Medical for 90 Branch days. tiZANidine 2021-08- No [id number] 4mg Take 1 [facility] 4 mg 0-04 07-08 capsule by [facility] of capsule 00:00: 05:59 mouth in [place] 00 :00 the Medical morning Branch and 1 capsule at noon and 1 capsule in the evening. Do all this for 90 days. docusate 2021-08- No [id number] 100mg Take 1 [facility] ([facility]) 0-08 capsule by [facility] of 100 mg 00:00: 05:59 mouth in [place] capsule 00 :00 the [facility] for 90 days. pregabalin 2021-08- No [id number] 150mg Take 1 [facility] 150 mg 0-04 07-08 capsule by [facility] of capsule 00:00: 05:59 mouth in [place] 00 :00 the [facility] morning Branch and 1 capsule at noon and 1 capsule in the evening. Do all this for 90 days. amitriptyli 2021-08- No [id number] 25mg Take 1 [facility] ne 25 mg 0-08 tablet by ity o f tablet 00:00: 05:59 mouth at [place] 00 :00 bedtime Medical for 90 Branch days. tiZANidine 2021-08- No [id number] 4mg Take 1 [facility] 4 mg 0-04 07-08 capsule by [facility] of capsule 00:00: 05:59 mouth in [place] 00 :00 the [facility] morning Branch and 1 capsule at noon and 1 capsule in the evening. Do all this for 90 days. docusate 2021-08- No [id number] 100mg Take 1 [facility] ([facility]) 0-04 07-08 capsule by [facility] of 100 mg 00:00: 05:59 mouth in [place] capsule 00 :00 the [facility] morning Branch for 90 days. pregabalin 2021-08- No [id number] 150mg Take 1 [facility] 150 mg 0-04 07-08 capsule by [facility] of capsule 00:00: 05:59 mouth in [place] 00 :00 the Medical morning Branch and 1 capsule at noon and 1 capsule in the evening. Do all this for 90 days. amitriptyli 2021-08- No [id number] 25mg Take 1 [facility] ne 25 mg 0-04 07-08 tablet by [facility] o f tablet 00:00: 05:59 mouth at [place] 00 :00 bedtime Medical for 90 Branch days. tiZANidine 2021-08- No [id number] 4mg Take 1 [facility] 4 mg 0-04 07-08 capsule by [facility] of capsule 00:00: 05:59 mouth in [place] 00 :00 the [facility] morning Branch and 1 capsule at noon and 1 capsule in the evening. Do all this for 90 days. docusate 2021-08- No [id number] 100mg Take 1 [facility] ([facility]) 0-04 07-08 capsule by [facility] of 100 mg 00:00: 05:59 mouth in [place] capsule 00 :00 the [facility] morning [place] for 90 days. pregabalin 2021-08- No [id number] 150mg Take 1 [facility] 150 mg 0-04 07-08 capsule by [facility] of capsule 00:00: 05:59 mouth in [place] 00 :00 the [facility] morning Branch and 1 capsule at noon and 1 capsule in the evening. Do all this for 90 days. amitriptyli 2021-08- No [id number] 25mg Take 1 [facility] ne 25 mg 0-08 tablet by [facility]y o f tablet 00:00: 05:59 mouth at [place] 00 :00 bedtime Medical for 90 Branch days. tiZANidine 2021-08- No [id number] 4mg Take 1 [facility] 4 mg 0-09 -08 capsule by [facility] of capsule 00:00: 05:59 mouth in [place] 00 :00 the [facility] morning Branch and 1 capsule at noon and 1 capsule in the evening. Do all this for 90 days. docusate 2021-08- No [id number] 100mg Take 1 [facility] ([facility]) 0-09 01-08 capsule by [facility] of 100 mg 00:00: 05:59 mouth in [place] capsule 00 :00 the Medical morning Branch for 90 days. pregabalin 2021-08- No [id number] 150mg Take 1 [facility] 150 mg 0-08 capsule by [facility] of capsule 00:00: 05:59 mouth in [place] 00 :00 the Medical morning Branch and 1 capsule at noon and 1 capsule in the evening. Do all this for 90 days. amitriptyli 2021-08- No [id number] 25mg Take 1 [facility] ne 25 mg 0-08 tablet by [facility]y o f tablet 00:00: 05:59 mouth at [place] 00 :00 bedtime Medical for 90 Branch days. tiZANidine 2021-08- No [id number] 4mg Take 1 [facility] 4 mg 008-14 capsule by [facility] of capsule 00:00: 05:59 mouth in [place] 00 :00 the Medical morning Branch and 1 capsule at noon and 1 capsule in the evening. Do all this for 90 days. docusate 2021-08- No [id number] 100mg Take 1 [facility] ([facility]) 008 capsule by [facility] of 100 mg 00:00: 05:59 mouth in [place] capsule 00 :00 the Medical morning Branch for 90 days. pregabalin 2021-08- No [id number] 150mg Take 1 [facility] 150 mg 008-14 capsule by [facility] of capsule 00:00: 05:59 mouth in [place] 00 :00 the Medical morning Branch and 1 capsule at noon and 1 capsule in the evening. Do all this for 90 days. amitriptyli 2021-08- No [id number] 25mg Take 1 [facility] ne 25 mg 0-08 tablet by [facility]y o f tablet 00:00: 05:59 mouth at [place] 00 :00 bedtime Medical for 90 Branch days. tiZANidine 2021-08- No [id number] 4mg Take 1 [facility] 4 mg 0-08 capsule by [facility] of capsule 00:00: 05:59 mouth in [place] 00 :00 the Medical morning Branch and 1 capsule at noon and 1 capsule in the evening. Do all this for 90 days. docusate 2021-08- No [id number] 100mg Take 1 [facility] ([facility]) 0-04 07-08 capsule by [facility] of 100 mg 00:00: 05:59 mouth in [place] capsule 00 :00 the Medical morning Branch for 90 days. pregabalin 2021-08- No [id number] 150mg Take 1 [facility] 150 mg 0-08 capsule by [facility] of capsule 00:00: 05:59 mouth in [place] 00 :00 the Medical morning Branch and 1 capsule at noon and 1 capsule in the evening. Do all this for 90 days. amitriptyli 2021-08- No [id number] 25mg Take 1 [facility] ne 25 mg 008 tablet by [facility]y o f tablet 00:00: 05:59 mouth at [place] 00 :00 bedtime Medical for 90 Branch days. tiZANidine 2021-08- No [id number] 4mg Take 1 [facility] 4 mg 008-14 capsule by [facility] of capsule 00:00: 05:59 mouth in [place] 00 :00 the Medical morning Branch and 1 capsule at noon and 1 capsule in the evening. Do all this for 90 days. docusate 2021-08- No [id number] 100mg Take 1 [facility] ([facility]) 008-14 capsule by [facility] of 100 mg 00:00: 05:59 mouth in [place] capsule 00 :00 the Medical morning Branch for 90 days. pregabalin 2021-08- No [id number] 150mg Take 1 [facility] 150 mg 008-14 capsule by [facility] of capsule 00:00: 05:59 mouth in [place] 00 :00 the Medical morning Branch and 1 capsule at noon and 1 capsule in the evening. Do all this for 90 days. amitriptyli 2021-08- No [id number] 25mg Take 1 [facility] ne 25 mg 008 tablet by [facility]y o f tablet 00:00: 05:59 mouth at [place] 00 :00 bedtime Medical for 90 Branch days. tiZANidine 2021-08- No [id number] 4mg Take 1 [facility] 4 mg 008 capsule by [facility] of capsule 00:00: 05:59 mouth in [place] 00 :00 the Medical morning Branch and 1 capsule at noon and 1 capsule in the evening. Do all this for 90 days. docusate 2021-08- No [id number] 100mg Take 1 [facility] ([facility]) 0-08 capsule by [facility] of 100 mg 00:00: 05:59 mouth in [place] capsule 00 :00 the [facility] morning [place] for 90 days. pregabalin 2021-08- No [id number] 150mg Take 1 [facility] 150 mg 0-08 capsule by [facility] of capsule 00:00: 05:59 mouth in [place] 00 :00 the Medical morning Branch and 1 capsule at noon and 1 capsule in the evening. Do all this for 90 days. amitriptyli 2021-08- No [id number] 25mg Take 1 [facility] ne 25 mg 0-08 tablet by [facility]y o f tablet 00:00: 05:59 mouth at [place] 00 :00 bedtime Medical for 90 Branch days. tiZANidine 2021-08- No [id number] 4mg Take 1 [facility] 4 mg 0-08 capsule by [facility] of capsule 00:00: 05:59 mouth in [place] 00 :00 the [facility] morning Branch and 1 capsule at noon and 1 capsule in the evening. Do all this for 90 days. docusate 2021-08- No [id number] 100mg Take 1 [facility] ([facility]) 0-08 capsule by [facility] of 100 mg 00:00: 05:59 mouth in [place] capsule 00 :00 the [facility] for 90 days. pregabalin 2021-08- No [id number] 150mg Take 1 [facility] 150 mg 0-08 capsule by [facility] of capsule 00:00: 05:59 mouth in [place] 00 :00 the [facility] morning Branch and 1 capsule at noon and 1 capsule in the evening. Do all this for 90 days. amitriptyli 2021-08- No [id number] 25mg Take 1 [facility] ne 25 mg 0-08 tablet by ity o f tablet 00:00: 05:59 mouth at [place] 00 :00 bedtime Medical for 90 Branch days. tiZANidine 2021-08- No [id number] 4mg Take 1 [facility] 4 mg 0-08 capsule by [facility] of capsule 00:00: 05:59 mouth in [place] 00 :00 the [facility] morning Branch and 1 capsule at noon and 1 capsule in the evening. Do all this for 90 days. docusate 2021-08- No [id number] 100mg Take 1 [facility] ([facility]) 0- 01-08 capsule by [facility] of 100 mg 00:00: 05:59 mouth in [place] capsule 00 :00 the Medical morning Branch for 90 days. pregabalin 2021-08- No [id number] 150mg Take 1 [facility] 150 mg 0-04 07-08 capsule by [facility] of capsule 00:00: 05:59 mouth in [place] 00 :00 the Medical morning Branch and 1 capsule at noon and 1 capsule in the evening. Do all this for 90 days. amitriptyli 2021-08- No [id number] 25mg Take 1 [facility] ne 25 mg 0-08 tablet by ity o f tablet 00:00: 05:59 mouth at [place] 00 :00 bedtime Medical for 90 Branch days. tiZANidine 2021-08- No [id number] 4mg Take 1 [facility] 4 mg 0-08 capsule by [facility] of capsule 00:00: 05:59 mouth in [place] 00 :00 the [facility] morning Branch and 1 capsule at noon and 1 capsule in the evening. Do all this for 90 days. docusate 2021-08- No [id number] 100mg Take 1 [facility] ([facility]) 0-08 capsule by [facility] of 100 mg 00:00: 05:59 mouth in [place] capsule 00 :00 the [facility] morning Branch for 90 days. pregabalin 2021-08- No [id number] 150mg Take 1 [facility] 150 mg 0-08 capsule by [facility] of capsule 00:00: 05:59 mouth in [place] 00 :00 the Medical morning Branch and 1 capsule at noon and 1 capsule in the evening. Do all this for 90 days. amitriptyli 2021-08- No [id number] 25mg Take 1 [facility] ne 25 mg 0-08 tablet by ity o f tablet 00:00: 05:59 mouth at [place] 00 :00 bedtime Medical for 90 Branch days. tiZANidine 2021-08- No [id number] 4mg Take 1 [facility] 4 mg 0-04 07-08 capsule by [facility] of capsule 00:00: 05:59 mouth in [place] 00 :00 the Medical morning Branch and 1 capsule at noon and 1 capsule in the evening. Do all this for 90 days. docusate 2021-08- No [id number] 100mg Take 1 [facility] ([facility]) 0- 01-08 capsule by [facility] of 100 mg 00:00: 05:59 mouth in [place] capsule 00 :00 the Medical morning Branch for 90 days. pregabalin 2021-08- No [id number] 150mg Take 1 [facility] 150 mg 0-04 07-08 capsule by [facility] of capsule 00:00: 05:59 mouth in [place] 00 :00 the Medical morning Branch and 1 capsule at noon and 1 capsule in the evening. Do all this for 90 days. amitriptyli 2021-08- No [id number] 25mg Take 1 [facility] ne 25 mg 0-08 tablet by [facility]y o f tablet 00:00: 05:59 mouth at [place] 00 :00 bedtime Medical for 90 Branch days. tiZANidine 2021-08- No [id number] 4mg Take 1 [facility] 4 mg 0-08 capsule by [facility] of capsule 00:00: 05:59 mouth in [place] 00 :00 the Medical morning Branch and 1 capsule at noon and 1 capsule in the evening. Do all this for 90 days. docusate 2021-08- No [id number] 100mg Take 1 [facility] ([facility]) 0-08 capsule by [facility] of 100 mg 00:00: 05:59 mouth in [place] capsule 00 :00 the Medical morning Branch for 90 days. pregabalin 2021-08- No [id number] 150mg Take 1 [facility] 150 mg 0-08 capsule by [facility] of capsule 00:00: 05:59 mouth in [place] 00 :00 the Medical morning Branch and 1 capsule at noon and 1 capsule in the evening. Do all this for 90 days. amitriptyli 2021-08- No [id number] 25mg Take 1 [facility] ne 25 mg 0-08 tablet by ity o f tablet 00:00: 05:59 mouth at [place] 00 :00 bedtime Medical for 90 Branch days. tiZANidine 2021-08- No [id number] 4mg Take 1 [facility] 4 mg 0-09 -08 capsule by [facility] of capsule 00:00: 05:59 mouth in [place] 00 :00 the Medical morning Branch and 1 capsule at noon and 1 capsule in the evening. Do all this for 90 days. docusate 2021-08- No [id number] 100mg Take 1 [facility] ([facility]) 0-08 capsule by [facility] of 100 mg 00:00: 05:59 mouth in [place] capsule 00 :00 the Medical morning Branch for 90 days. pregabalin 2021-08- No [id number] 150mg Take 1 [facility] 150 mg 008 capsule by [facility] of capsule 00:00: 05:59 mouth in [place] 00 :00 the Medical morning Branch and 1 capsule at noon and 1 capsule in the evening. Do all this for 90 days. amitriptyli 2021-08- No [id number] 25mg Take 1 [facility] ne 25 mg 008-14 tablet by ity o f tablet 00:00: 05:59 mouth at [place] 00 :00 bedtime Medical for 90 Branch days. tiZANidine 2021-08- No [id number] 4mg Take 1 [facility] 4 mg 008-14 capsule by [facility] of capsule 00:00: 05:59 mouth in [place] 00 :00 the Medical morning Branch and 1 capsule at noon and 1 capsule in the evening. Do all this for 90 days. docusate 2021-08- No [id number] 100mg Take 1 [facility] ([facility]) 008-14 capsule by [facility] of 100 mg 00:00: 05:59 mouth in [place] capsule 00 :00 the Medical morning Branch for 90 days. pregabalin 2021-08- No [id number] 150mg Take 1 [facility] 150 mg 008-14 capsule by [facility] of capsule 00:00: 05:59 mouth in [place] 00 :00 the Medical morning Branch and 1 capsule at noon and 1 capsule in the evening. Do all this for 90 days. amitriptyli 2021-08- No [id number] 25mg Take 1 [facility] ne 25 mg 008 tablet by ity o f tablet 00:00: 05:59 mouth at [place] 00 :00 bedtime Medical for 90 Branch days. tiZANidine 2021-08- No [id number] 4mg Take 1 [facility] 4 mg 0-08 capsule by [facility] of capsule 00:00: 05:59 mouth in [place] 00 :00 the Medical morning Branch and 1 capsule at noon and 1 capsule in the evening. Do all this for 90 days. pregabalin 2021-08- No [id number] 150mg Take 1 [facility] 150 mg 0-04 07-08 capsule by [facility] of capsule 00:00: 05:59 mouth in [place] 00 :00 the Medical morning Branch and 1 capsule at noon and 1 capsule in the evening. Do all this for 90 days. amitriptyli 2021-08- No [id number] 25mg Take 1 [facility] ne 25 mg 0-04 07-08 tablet by ity o f tablet 00:00: 05:59 mouth at [place] 00 :00 bedtime Medical for 90 Branch days. pregabalin 2021-08- No [id number] 150mg Take 1 [facility] 150 mg 0-08 capsule by [facility] of capsule 00:00: 05:59 mouth in [place] 00 :00 the Medical morning Branch and 1 capsule at noon and 1 capsule in the evening. Do all this for 90 days. amitriptyli 2021-08- No [id number] 25mg Take 1 [facility] ne 25 mg 0-08 tablet by ity o f tablet 00:00: 05:59 mouth at [place] 00 :00 bedtime Medical for 90 Branch days. pregabalin 2021-08- No [id number] 150mg Take 1 [facility] 150 mg 0-08 capsule by [facility] of capsule 00:00: 05:59 mouth in [place] 00 :00 the Medical morning Branch and 1 capsule at noon and 1 capsule in the evening. Do all this for 90 days. amitriptyli 2021-08- No [id number] 25mg Take 1 [facility] ne 25 mg 0-08 tablet by ity o f tablet 00:00: 05:59 mouth at [place] 00 :00 bedtime Medical for 90 Branch days. pregabalin 2021-08- No [id number] 150mg Take 1 [facility] 150 mg 0-04 07-08 capsule by [facility] of capsule 00:00: 05:59 mouth in [place] 00 :00 the Medical morning Branch and 1 capsule at noon and 1 capsule in the evening. Do all this for 90 days. amitriptyli 2021-08- No [id number] 25mg Take 1 [facility] ne 25 mg 0-09 -08 tablet by [facility]y o f tablet 00:00: 05:59 mouth at [place] 00 :00 bedtime Medical for 90 Branch days. pregabalin 2021-08- No [id number] 150mg Take 1 [facility] 150 mg 0-09 -08 capsule by [facility] of capsule 00:00: 05:59 mouth in [place] 00 :00 the Medical morning Branch and 1 capsule at noon and 1 capsule in the evening. Do all this for 90 days. amitriptyli 2021-08- No [id number] 25mg Take 1 [facility] ne 25 mg 0-09 -08 tablet by [facility]y o f tablet 00:00: 05:59 mouth at [place] 00 :00 bedtime Medical for 90 Branch days. pregabalin 2021-08- No [id number] 150mg Take 1 [facility] 150 mg 0-04 07-08 capsule by [facility] of capsule 00:00: 05:59 mouth in [place] 00 :00 the Medical morning Branch and 1 capsule at noon and 1 capsule in the evening. Do all this for 90 days. amitriptyli 2021-08- No [id number] 25mg Take 1 [facility] ne 25 mg 0-04 07-08 tablet by [facility]y o f tablet 00:00: 05:59 mouth at [place] 00 :00 bedtime Medical for 90 Branch days. pregabalin 2021-08- No [id number] 150mg Take 1 [facility] 150 mg 0-09 -08 capsule by [facility] of capsule 00:00: 05:59 mouth in [place] 00 :00 the Medical morning Branch and 1 capsule at noon and 1 capsule in the evening. Do all this for 90 days. amitriptyli 2021-08- No [id number] 25mg Take 1 [facility] ne 25 mg 0-09 -08 tablet by [facility]y o f tablet 00:00: 05:59 mouth at [place] 00 :00 bedtime Medical for 90 Branch days. pregabalin 2021-08- No [id number] 150mg Take 1 [facility] 150 mg 0-09 01-08 capsule by [facility] of capsule 00:00: 05:59 mouth in [place] 00 :00 the Medical morning Branch and 1 capsule at noon and 1 capsule in the evening. Do all this for 90 days. amitriptyli 2021-08- No [id number] 25mg Take 1 [facility] ne 25 mg 0-09 -08 tablet by [facility]y o f tablet 00:00: 05:59 mouth at [place] 00 :00 bedtime Medical for 90 Branch days. pregabalin 2021-08- No [id number] 150mg Take 1 [facility] 150 mg 0-04 07-08 capsule by [facility] of capsule 00:00: 05:59 mouth in [place] 00 :00 the Medical morning Branch and 1 capsule at noon and 1 capsule in the evening. Do all this for 90 days. amitriptyli 2021-08- No [id number] 25mg Take 1 [facility] ne 25 mg 0-04 07-08 tablet by ity o f tablet 00:00: 05:59 mouth at [place] 00 :00 bedtime Medical for 90 Branch days. pregabalin 2021-08- No [id number] 150mg Take 1 [facility] 150 mg 0-04 07-08 capsule by [facility] of capsule 00:00: 05:59 mouth in [place] 00 :00 the Medical morning Branch and 1 capsule at noon and 1 capsule in the evening. Do all this for 90 days. amitriptyli 2021-08- No [id number] 25mg Take 1 [facility] ne 25 mg 0-04 07-08 tablet by [facility]y o f tablet 00:00: 05:59 mouth at [place] 00 :00 bedtime Medical for 90 Branch days. pregabalin 2021-08- No [id number] 150mg Take 1 [facility] 150 mg 0-09 -08 capsule by [facility] of capsule 00:00: 05:59 mouth in [place] 00 :00 the Medical morning Branch and 1 capsule at noon and 1 capsule in the evening. Do all this for 90 days. amitriptyli 2021-08- No [id number] 25mg Take 1 [facility] ne 25 mg 0-04 07-08 tablet by [facility]y o f tablet 00:00: 05:59 mouth at [place] 00 :00 bedtime Medical for 90 Branch days. pregabalin 2021-08- No [id number] 150mg Take 1 [facility] 150 mg 0-09 -08 capsule by [facility] of capsule 00:00: 05:59 mouth in [place] 00 :00 the Medical morning Branch and 1 capsule at noon and 1 capsule in the evening. Do all this for 90 days. amitriptyli 2021-08- No [id number] 25mg Take 1 [facility] ne 25 mg 0-09 -08 tablet by [facility]y o f tablet 00:00: 05:59 mouth at [place] 00 :00 bedtime Medical for 90 Branch days. pregabalin 2021-08- No [id number] 150mg Take 1 [facility] 150 mg 0-09 -08 capsule by [facility] of capsule 00:00: 05:59 mouth in [place] 00 :00 the Medical morning Branch and 1 capsule at noon and 1 capsule in the evening. Do all this for 90 days. amitriptyli 2021-08- No [id number] 25mg Take 1 [facility] ne 25 mg 0-04 07-08 tablet by [facility]y o f tablet 00:00: 05:59 mouth at [place] 00 :00 bedtime Medical for 90 Branch days. pregabalin 2021-08- No [id number] 150mg Take 1 [facility] 150 mg 0-04 07-08 capsule by [facility] of capsule 00:00: 05:59 mouth in [place] 00 :00 the Medical morning Branch and 1 capsule at noon and 1 capsule in the evening. Do all this for 90 days. amitriptyli 2021-08- No [id number] 25mg Take 1 [facility] ne 25 mg 0-04 07-08 tablet by [facility]y o f tablet 00:00: 05:59 mouth at [place] 00 :00 bedtime Medical for 90 Branch days. pregabalin 2021-08- No [id number] 150mg Take 1 [facility] 150 mg 0-09 -08 capsule by [facility] of capsule 00:00: 05:59 mouth in [place] 00 :00 the Medical morning Branch and 1 capsule at noon and 1 capsule in the evening. Do all this for 90 days. amitriptyli 2021-08- No [id number] 25mg Take 1 [facility] ne 25 mg 0-09 -08 tablet by [facility]y o f tablet 00:00: 05:59 mouth at [place] 00 :00 bedtime Medical for 90 Branch days. pregabalin 2021-08- No [id number] 150mg Take 1 [facility] 150 mg 0-09 01-08 capsule by [facility] of capsule 00:00: 05:59 mouth in [place] 00 :00 the Medical morning Branch and 1 capsule at noon and 1 capsule in the evening. Do all this for 90 days. amitriptyli 2021-08- No [id number] 25mg Take 1 [facility] ne 25 mg 008-14 tablet by [facility]y o f tablet 00:00: 05:59 mouth at [place] 00 :00 bedtime Medical for 90 Branch days. tiZANidine 2021-08 No [id number] 4mg Take 1 [facility] 4 mg 008-14 capsule by [facility] of capsule 00:00: 05:59 mouth in [place] 00 :00 the Medical morning Branch and 1 capsule at noon and 1 capsule in the evening. Do all this for 90 days. docusate 2021-08 No [id number] 100mg Take 1 [facility] ([facility]) 008-14 capsule by [facility] of 100 mg 00:00: 05:59 mouth in [place] capsule 00 :00 the Medical morning Branch for 90 days. docusate 2021-08 No [id number] 100mg Take 1 [facility] ([facility]) 007-12 capsule by [facility] of 100 mg 00:00: 00:00 mouth in [place] capsule 00 :00 the [facility] morning Branch for 90 days. tiZANidine 2021-08 No [id number] 4mg Take 1 [facility] 4 mg 007-12 capsule by [facility] of capsule 00:00: 00:00 mouth in [place] 00 :00 the Medical morning Branch and 1 capsule at noon and 1 capsule in the evening. Do all this for 90 days. docusate 2021-08 No [id number] 100mg Take 1 [facility] ([facility]) 007-12 capsule by [facility] of 100 mg 00:00: 00:00 mouth in [place] capsule 00 :00 the Medical morning Branch for 90 days. tiZANidine 2021-08 No [id number] 4mg Take 1 [facility] 4 mg 007-12 capsule by [facility] of capsule 00:00: 00:00 mouth in [place] 00 :00 the Medical morning Branch and 1 capsule at noon and 1 capsule in the evening. Do all this for 90 days. docusate 2021-08- No [id number] 100mg Take 1 [facility] ([facility]) 007-12 capsule by [facility] of 100 mg 00:00: 00:00 mouth in [place] capsule 00 :00 the Medical morning Branch for 90 days. tiZANidine 2021-08- No [id number] 4mg Take 1 [facility] 4 mg 007-12 capsule by [facility] of capsule 00:00: 00:00 mouth in [place] 00 :00 the Medical morning Branch and 1 capsule at noon and 1 capsule in the evening. Do all this for 90 days. docusate 2021-08- No [id number] 100mg Take 1 [facility] ([facility]) 007-12 capsule by [facility] of 100 mg 00:00: 00:00 mouth in [place] capsule 00 :00 the Medical morning Branch for 90 days. tiZANidine 2021-08- No [id number] 4mg Take 1 [facility] 4 mg 007-12 capsule by [facility] of capsule 00:00: 00:00 mouth in [place] 00 :00 the Medical morning Branch and 1 capsule at noon and 1 capsule in the evening. Do all this for 90 days. docusate 2021-08- No [id number] 100mg Take 1 [facility] ([facility]) 007-12 capsule by [facility] of 100 mg 00:00: 00:00 mouth in [place] capsule 00 :00 the Medical morning Branch for 90 days. magnesium 2021-08- No [id number] 30mL Take 30 mL [facility] hydroxide 006-15 by mouth 2 [facility]y of 400 mg/5 mL 00:00: 05:[place] suspension 00 :00 times Medical daily as Branch needed for Constipati on for up to 30 days. magnesium 2021-08- No [id number] 30mL Take 30 mL [facility] hydroxide 006-15 by mouth 2 ity of 400 mg/5 mL 00:00: 05:59 [place]two[place] 00 :00 times Medical daily as Branch needed for Constipati on for up to 30 days. magnesium 2021-08- No [id number] 30mL Take 30 mL [facility] hydroxide 006-15 by mouth 2 ity of 400 mg/5 mL 00:00: 05:59 (two) [place] suspension 00 :00 times Medical daily as Branch needed for Constipati on for up to 30 days. magnesium 2021-08- No [id number] 30mL Take 30 mL [facility] hydroxide 006-15 by mouth 2 ity of 400 mg/5 mL 00:00: 05:59 (two) [place] suspension 00 :00 times Medical daily as Branch needed for Constipati on for up to 30 days. magnesium 2021-08- No [id number] 30mL Take 30 mL [facility] hydroxide 006-15 by mouth 2 ity of 400 mg/5 mL 00:00: 05:59 (two) [place] suspension 00 :00 times Medical daily as Branch needed for Constipati on for up to 30 days. magnesium 2021-08- No [id number] 30mL Take 30 mL [facility] hydroxide 006-15 by mouth 2 ity of 400 mg/5 mL 00:00: 05:59 (two) [place] suspension 00 :00 times Medical daily as Branch needed for Constipati on for up to 30 days. magnesium 2021-08- No [id number] 30mL Take 30 mL [facility] hydroxide 006-15 by mouth 2 ity of 400 mg/5 mL 00:00: 05:59 (two) [place] suspension 00 :00 times Medical daily as Branch needed for Constipati on for up to 30 days. magnesium 2021-08- No [id number] 30mL Take 30 mL [facility] hydroxide 006-15 by mouth 2 ity of 400 mg/5 mL 00:00: 05:59 (two) [place] suspension 00 :00 times Medical daily as Branch needed for Constipati on for up to 30 days. magnesium 2021-08- No [id number] 30mL Take 30 mL [facility] hydroxide 006-15 by mouth 2 ity of 400 mg/5 mL 00:00: 05:59 (two) [place] suspension 00 :00 times Medical daily as Branch needed for Constipati on for up to 30 days. magnesium 2021-08- No [id number] 30mL Take 30 mL [facility] hydroxide 006-15 by mouth 2 ity of 400 mg/5 mL 00:00: 05:59 (two) [place] suspension 00 :00 times Medical daily as Branch needed for Constipati on for up to 30 days. magnesium 2021-08- No [id number] 30mL Take 30 mL [facility] hydroxide 006-15 by mouth 2 ity of 400 mg/5 mL 00:00: 05:59 (two) [place] suspension 00 :00 times Medical daily as Branch needed for Constipati on for up to 30 days. magnesium 2021-08- No [id number] 30mL Take 30 mL [facility] hydroxide 006-15 by mouth 2 ity of 400 mg/5 mL 00:00: 05:59 (two) [place] suspension 00 :00 times Medical daily as Branch needed for Constipati on for up to 30 days. magnesium 2021-08- No [id number] 30mL Take 30 mL [facility] hydroxide 006-15 by mouth 2 ity of 400 mg/5 mL 00:00: 05:59 (two) [place] suspension 00 :00 times Medical daily as Branch needed for Constipati on for up to 30 days. magnesium 2021-08- No [id number] 30mL Take 30 mL [facility] hydroxide 006-15 by mouth 2 ity of 400 mg/5 mL 00:00: 05:59 (two) [place] suspension 00 :00 times Medical daily as Branch needed for Constipati on for up to 30 days. magnesium 2021-08- No [id number] 30mL Take 30 mL [facility] hydroxide 006-15 by mouth 2 ity of 400 mg/5 mL 00:00: 05:59 (two) [place] suspension 00 :00 times Medical daily as Branch needed for Constipati on for up to 30 days. magnesium 2021-08- No [id number] 30mL Take 30 mL [facility] hydroxide 006-15 by mouth 2 ity of 400 mg/5 mL 00:00: 05:59 (two) [place] suspension 00 :00 times Medical daily as Branch needed for Constipati on for up to 30 days. magnesium 2021-08- No [id number] 30mL Take 30 mL [facility] hydroxide 006-15 by mouth 2 ity of 400 mg/5 mL 00:00: 05:59 (two) [place] suspension 00 :00 times Medical daily as Branch needed for Constipati on for up to 30 days. magnesium 2021-08- No [id number] 30mL Take 30 mL [facility] hydroxide 0-09 11-09 by mouth 2 ity of 400 mg/5 mL 00:00: 05:59 (two) [place] suspension 00 :00 times Medical daily as Branch needed for Constipati on for up to 30 days. magnesium 2021-08 No [id number] 30mL Take 30 mL [facility] hydroxide 0-09 11-09 by mouth 2 ity of 400 mg/5 mL 00:00: 05:59 (two) [place] suspension 00 :00 times Medical daily as Branch needed for Constipati on for up to 30 days. acetaminoph 2021-08 No [id number] 1000mg Take 2 [facility] en 500 mg 0-09 10-17 tablets by ity of tablet 00:00: 04:59 mouth [place] 00 :00 every 6 Medical (six) Branch hours for 7 days. morphine IR 2021-08 No [id number] 15mg Take 1 Uni vers 15 mg 0-09 10-17 tablet by ity of tablet 00:00: 04:59 mouth [place] 00 :00 every 4 Medical (four) Branch hours as needed for Pain (scale 4-6) for up to 7 days. Indication s: acute pain dexAMETHaso 2021-08 No [id number] Take 4 [facility] ne 1 mg 0-09 10-17 tablets by ity o f tablet 00:00: 04:59 mouth [place] 00 :00 every 6 Medical (six) Branch hours for 1 day, THEN 4 tablets every 12 (twelve) hours for 2 days, THEN 2 tablets every 12 (twelve) hours for 2 days, THEN 1 tablet every 12 (twelve) hours for 2 days. omeprazole 2021-08- No [id number] 40mg Take 1 [facility] 40 mg 0-09 10-17 capsule by ity of capsule 00:00: 04:59 mouth in [place] 00 :00 the Medical morning Branch for 7 days. acetaminoph 2021-08- No [id number] 1000mg Take 2 [facility] en 500 mg 0-09 10-17 tablets by ity of tablet 00:00: 04:59 mouth [place] 00 :00 every 6 Medical (six) Branch hours for 7 days. morphine IR 2021-08- No [id number] 15mg Take 1 Uni vers 15 mg 0-09 10-17 tablet by ity of tablet 00:00: 04:59 mouth [place] 00 :00 every 4 Medical (four) Branch hours as needed for Pain (scale 4-6) for up to 7 days. Indication s: acute pain dexAMETHaso 2021-08- No [id number] Take 4 [facility] ne 1 mg 0-09 10-17 tablets by ity o f tablet 00:00: 04:59 mouth [place] 00 :00 every 6 Medical (six) Branch hours for 1 day, THEN 4 tablets every 12 (twelve) hours for 2 days, THEN 2 tablets every 12 (twelve) hours for 2 days, THEN 1 tablet every 12 (twelve) hours for 2 days. omeprazole 2021-08- No [id number] 40mg Take 1 [facility] 40 mg 0-09 10-17 capsule by ity of capsule 00:00: 04:59 mouth in [place] 00 :00 the Medical morning Branch for 7 days. acetaminoph 2021-08- No [id number] 1000mg Take 2 [facility] en 500 mg 0-09 10-17 tablets by ity of tablet 00:00: 04:59 mouth [place] 00 :00 every 6 Medical (six) Branch hours for 7 days. morphine IR 2021-08- No [id number] 15mg Take 1 Uni vers 15 mg 0-09 10-17 tablet by ity of tablet 00:00: 04:59 mouth [place] 00 :00 every 4 Medical (four) Branch hours as needed for Pain (scale 4-6) for up to 7 days. Indication s: acute pain dexAMETHaso 2021-08- No [id number] Take 4 [facility] ne 1 mg 0-09 10-17 tablets by ity o f tablet 00:00: 04:59 mouth [place] 00 :00 every 6 Medical (six) Branch hours for 1 day, THEN 4 tablets every 12 (twelve) hours for 2 days, THEN 2 tablets every 12 (twelve) hours for 2 days, THEN 1 tablet every 12 (twelve) hours for 2 days. omeprazole 2021-08- No [id number] 40mg Take 1 [facility] 40 mg 0-09 10-17 capsule by ity of capsule 00:00: 04:59 mouth in [place] 00 :00 the Medical morning Branch for 7 days. acetaminoph 2021-08- No [id number] 1000mg Take 2 [facility] en 500 mg 0-09 10-17 tablets by ity of tablet 00:00: 04:59 mouth [place] 00 :00 every 6 Medical (six) Branch hours for 7 days. morphine IR 2021-08 No [id number] 15mg Take 1 Uni vers 15 mg 0-09 10-17 tablet by ity of tablet 00:00: 04:59 mouth [place] 00 :00 every 4 Medical (four) Branch hours as needed for Pain (scale 4-6) for up to 7 days. Indication s: acute pain dexAMETHaso 2021-08- No [id number] Take 4 [facility] ne 1 mg 0-09 10-17 tablets by ity o f tablet 00:00: 04:59 mouth [place] 00 :00 every 6 Medical (six) Branch hours for 1 day, THEN 4 tablets every 12 (twelve) hours for 2 days, THEN 2 tablets every 12 (twelve) hours for 2 days, THEN 1 tablet every 12 (twelve) hours for 2 days. omeprazole 2021-08 No [id number] 40mg Take 1 [facility] 40 mg 0-09 10-17 capsule by ity of capsule 00:00: 04:59 mouth in [place] 00 :00 the Medical morning Branch for 7 days. acetaminoph 2021-08 No [id number] 1000mg Take 2 [facility] en 500 mg 0-09 10-17 tablets by ity of tablet 00:00: 04:59 mouth [place] 00 :00 every 6 Medical (six) Branch hours for 7 days. morphine IR 2021-08 No [id number] 15mg Take 1 Uni vers 15 mg 0-09 10-17 tablet by ity of tablet 00:00: 04:59 mouth [place] 00 :00 every 4 Medical (four) Branch hours as needed for Pain (scale 4-6) for up to 7 days. Indication s: acute pain dexAMETHaso 2021-08- No [id number] Take 4 [facility] ne 1 mg 0-09 10-17 tablets by ity o f tablet 00:00: 04:59 mouth [place] 00 :00 every 6 Medical (six) Branch hours for 1 day, THEN 4 tablets every 12 (twelve) hours for 2 days, THEN 2 tablets every 12 (twelve) hours for 2 days, THEN 1 tablet every 12 (twelve) hours for 2 days. omeprazole 2021-08- No [id number] 40mg Take 1 [facility] 40 mg 0-09 10-17 capsule by ity of capsule 00:00: 04:59 mouth in [place] 00 :00 the Medical morning Branch for 7 days. morpHINE (4 2021-08 Yes 2mg 2 mg, Slow Univers mg/mL) 0-08 IV Push, ity of injection 2 19:28: Q6HPRN, [place] mg 59 Starting Medical on Mon Branch 05/14/22 at 1428, Until Discontinu ed, Routine, Pain (scale 7-10) acetaminoph 2021-08 Yes 1000mg 1,000 mg, Univers en 0-07 Oral, Q6H, ity of (TYLENOL) 23:00: First [place] tablet 00 on Mon Medical 1,000 mg 05/13/[address] [facility] h 1800, Until Discontinu ed, Routine pregabalin 2021-08 Yes 150mg 150 mg, Uni vers (LYRICA) 0-07 Oral, Q8H, ity o f capsule 150 19:00: First dose [place] mg 00 (after Medical last Branch modificati on) on Mon05/13/22 at 1400, Until Discontinu ed, Routine morphine IR 2021-08 Yes 15mg 15 mg, Univ ers (MSIR) 0-07 Oral, ity of tablet 15 18:24: Q4HPRN, [place] mg 25 Starting Medical on Mon Branch 05/13/22 at 1324, Until Discontinu ed, Routine, Pain (scale 4-6) lidocaine 2021-08 No 10mL 10 mL, Unive rs 1% (PF) 0-07 10-07 Infiltrati ity o f (XYLOCAINE) 16:15: 16:15 on, ONCE, [place] injection 00 :00 1 dose, On Medi benjie 10 mL Mon Branch 05/13/22 at 1115, Routine pantoprazol 2021-08 Yes 40mg 40 mg, Univ ers e 0-07 Slow IV ity of (PROTONIX) 13:00: Push, [place] injection 00 Q12H, Medical 40 mg First dose Branch on Mon05/13/22 at 0800, Until Discontinu ed dexamethaso 2021-08- No 4mg 4 mg, Univ ers ne 0-07 10-10 Intravenou ity of (DECADRON 12:30: 10:59 s, Q6H, 12 [place] PHOSPHATE) 00 :00 doses, Medical injection 4 First dose Br anch mg on Mon05/13/22 at 0730, Last dose on 05/16/22 at 0000, 1 mL docusate 2021-08 Yes 100mg 100 mg, Unive rs (COLACE) 0-07 Oral, BID, ity o f capsule 100 01:00: First dose [place] mg 00 on [facility] 05/12/22 at [place] 1999, Until Discontinu ed, Routine docusate 2021-08 Yes 100mg 100 mg, Unive rs (COLACE) 0-07 Oral, BID, ity o f capsule 100 01:00: First dose [place] mg 00 on [facility] 05/12/22 at [place] 2000, Until Discontinu ed, Routine magnesium 2021-08 No 30mL 30 mL, Unive rs hydroxide 0-06 10-06 Oral, ity of (MILK OF 14:45: 14:17 ONCE, 1 [place] MAGNESIA) 00 :00 dose, On Medica l 400 mg/5 mL [facility] suspension 05/12/22 at 30 mL 0945, Routine magnesium 2021-08 No 30mL 30 mL, Unive rs hydroxide 0-06 10-06 Oral, ity of (MILK OF 14:45: 14:17 ONCE, 1 [place] MAGNESIA) 00 :00 dose, On Medica l 400 mg/5 mL [facility] suspension 05/12/22 at 30 mL 0945, Routine magnesium 2021-08 Yes 30mL 30 mL, Univer s hydroxide 0-06 Oral, ity of (MILK OF 13:52: BIDPRN, [place] MAGNESIA) 17 Starting Medica l 400 mg/5 mL on [facility] suspension 05/12/22 at 30 mL 0852, Until Discontinu ed, Routine, Constipati on magnesium 2021-08 Yes 30mL 30 mL, Univer s hydroxide 0-06 Oral, ity of (MILK OF 13:52: BIDPRN, [place] MAGNESIA) 17 Starting Medica l 400 mg/5 mL on [facility] suspension 05/12/22 at 30 mL 0852, Until Discontinu ed, Routine, Constipati on levothyroxi 2021-08 Yes 137ug 137 mcg, U nivers ne 0-06 Oral, ity of (SYNTHROID) 11:00: QAM-0600, [place] tablet 137 00 First dose Med ical mcg on [facility] 05/12/22 at 0600, Until Discontinu ed, Routine levothyroxi 2021-08 Yes 137ug 137 mcg, U nivers ne 0-06 Oral, ity of (SYNTHROID) 11:00: QAM-0600, [place] tablet 137 00 First dose Med ical mcg on [facility] 05/12/22 at 0600, Until Discontinu ed, Routine enoxaparin 2021-08 Yes 40mg 40 mg, Unive rs (LOVENOX) 0-06 Subcutaneo ity of injection 09:00: us, Q24H, [place] 40 mg 00 First dose Medical on [facility] Branch 05/12/22 at 0400, Until Discontinu ed, Routine enoxaparin 2021-08 Yes 40mg 40 mg, Unive rs (LOVENOX) 0-06 Subcutaneo ity of injection 09:00: us, Q24H, [place] 40 mg 00 First dose Medical on [facility] 05/12/22 at 0400, Until Discontinu ed, Routine omeprazole 2021-08 Yes 40mg 40 mg, Unive rs (PRILOSEC) 0-06 Oral, QHS, ity of capsule 40 02:30: First dose [place] mg 00 (after Medical last Branch modificati on) on Mon05/11/22 at 2130, Until Discontinu ed FLUoxetine 2021-08 Yes 10mg 10 mg, Unive rs (PROZAC) 0-06 Oral, QHS, ity o f capsule 10 02:30: First dose [place] mg 00 (after Medical last Branch modificati on) on Mon05/11/22 at 2130, Until Discontinu ed FLUoxetine 2021-08 Yes 10mg 10 mg, Unive rs (PROZAC) 0-06 Oral, QHS, ity o f capsule 10 02:30: First dose [place] mg 00 (after Medical last Branch modificati on) on Mon05/11/22 at 2130, Until Discontinu ed omeprazole 2021-08 40mg 40 mg, Univ ers (PRILOSEC) 0-06 10-07 Oral, QHS, it y of capsule 40 02:30: 12:25 First dose [place] mg 00 :22 (after Medical last Branch modificati on) on Mon05/11/22 at 2130, Until Discontinu ed ceFAZolin 2021-08 No 2000mg 2 g (2,000 Univers in 0.9% 0-06 10-09 mg), IV ity of sodium 02:00: 01:59 Piggyback, [place] chloride 00 :00 Q8H ABX, 9 Medic al (ANCEF) 2 doses, Branch gram/100 mL First dose RTU 2 g on Mon05/11/22 at 2100, Last dose on 05/14/22 at 1300, Administer over 30 Minutes, 100 mL
Reas on for Anti-Infec tive: Surgical Prophylaxi s
Surgi benjie Prophylaxi s: Neurosurge ry
Dura tion of therapy: within 24 hours of surgery ceFAZolin 2021-08 No 2000mg 2 g (2,000 Univers in 0.9% 0-06 10-08 mg), IV ity of sodium 02:00: 19:02 [place], [place] chloride 00 :00 Q8H ABX, 9 Medic al (ANCEF) 2 doses, Branch gram/100 mL First dose RTU 2 g on Mon05/11/22 at 2100, Last dose on 05/14/22 at 1300, Administer over 30 Minutes, 100 mL
Reas on for Anti-Infec tive: Surgical Prophylaxi s
Surgi benjie Prophylaxi s: Neurosurge ry
Dura tion of therapy: within 24 hours of surgery sennosides 2021-08 Yes 8.6mg 8.6 mg, Uni vers (SENOKOT) 0-06 Oral, BID, ity of tablet 8.6 01:00: First dose [place] mg 00 on Mon Medical 05/11/22 at Branch 1999, Until Discontinu ed, Routine Fluticasone 2021-08 Yes 1{puff} 1 Puff, Univers -Salmeterol 0-06 Inhalation it y of (ADVAIR) 01:00: , Q12H, [place] 500-50 00 First dose Medical mcg/dose on Mon Branch inhalation 05/11/22 at disk 1 Puff 1999, Until Discontinu ed, Routine pregabalin 2021-08 Yes 150mg 150 mg, Uni vers (LYRICA) 0-06 Oral, BID, ity o f capsule 150 01:00: First dose [place] mg 00 on Mon [facility] 05/11/22 at [place] [address], Until Discontinu ed, Routine sennosides 2021-08 Yes 8.6mg 8.6 mg, Uni vers (SENOKOT) 0-06 Oral, BID, ity of tablet 8.6 01:00: First dose [place] mg 00 on Mon [facility] 05/11/22 at [place] 1999, Until Discontinu ed, Routine Fluticasone 2021-08 Yes 1{puff} 1 Puff, Univers -Salmeterol 0-06 Inhalation it y of (ADVAIR) 01:00: , Q12H, [place] 500-50 00 First dose Medical mcg/dose on Mon [place] inhalation 05/11/22 at [facility] 1 Puff 1999, Until Discontinu ed, Routine pregabalin 2021-08- No 150mg 150 mg, Un claudia (LYRICA) 0-06 10-07 Oral, BID, ity of capsule 150 01:00: 18:25 First dose [place] mg 00 :39 on [facility] 05/11/22 at [place] [address], Until Discontinu ed, Routine docusate 2021-08- No 100mg 100 mg, Univ ers (COLACE) 0-06 10-06 Oral, BID, ity of capsule 100 01:00: 14:02 First dose [place] mg 00 :23 on [facility] 05/11/22 at [place] [address], Until Discontinu ed, Routine docusate 2021-08- No 100mg 100 mg, Univ ers (COLACE) 0-06 10-06 Oral, BID, ity of capsule 100 01:00: 14:02 First dose [place] mg 00 :23 on [facility] 05/11/22 at [place] 1999, Until Discontinu ed, Routine acetaminoph 2021-08- No 1000mg 1,000 mg, Univers en ADULT 0-05 10-06 IV ity of (OFIRMEV) 23:00: 17:20 Infusion, [place] injection 00 :00 at 400 Medical 1,000 mg mL/hr [place] Administer over 15 Minutes, Q6H, 4 doses, First dose on Mon05/11/22 at 1800, Last dose on Mon05/12/22 at 1200, Routine
Indicatio n: Perioperat mayte Patient acetaminoph 2021-08 No 1000mg 1,000 mg, Univers en ADULT 0-05 10-06 IV ity of (OFIRMEV) 23:00: 17:20 Infusion, [place] injection 00 :00 at 400 Medical 1,000 mg mL/hr Branch Administer over 15 Minutes, Q6H, 4 doses, First dose on Mon05/11/22 at 1800, Last dose on Mon05/12/22 at 1200, Routine
Indicatio n: Perioperat mayte Patient cyclobenzap 2021-08 Yes 10mg 10 mg, Univ ers rine 0-05 Oral, TID, ity of (FLEXERIL) 21:30: First dose [place] tablet 10 00 (after Medical mg last Branch modificati on) on Mon05/11/22 at 1630, Until Discontinu ed, Routine cyclobenzap 2021-08- No 10mg 10 mg, Uni vers rine 0-05 10-08 Oral, TID, ity of (FLEXERIL) 21:30: 19:29 First dose [place] tablet 10 00 :13 (after Medical mg last Branch modificati on) on Mon05/11/22 at 1630, Until Discontinu ed, Routine lactated 2021-08 Yes 1000mL at 75 Univer s ringers IV 0-05 mL/hr, ity of infusion 19:15: 1,000 mL, [place] 1,000 mL 00 IV Medical Infusion, Branch CONTINUOUS , Starting on Mon05/11/22 at 1415, Until Discontinu ed, Routine, PACU HYDROcodone 2021-08 No 1{tbl} 1 tablet, Univers -acetaminop 0-05 10-05 Oral, ity of hen (NORCO 19:15: 20:15 ONCE, 1 [place] 5) 5-325 mg 00 :00 dose, On Medi [place] tablet 1 Wed Branch tablet 05/11/22 at 1415, Routine, PACU HYDROcodone 2021-08 No 1{tbl} 1 tablet, Univers -acetaminop 0-05 10-05 Oral, ity of hen (NORCO 19:15: 20:15 ONCE, 1 [place] 5) 5-325 mg 00 :00 dose, On Medi [place] tablet 1 Wed Branch tablet 05/11/22 at 1415, Routine, PACU FENTanyl PF 2021-08 No 25ug 25 mcg, Un claudia (SUBLIMAZE 0-05 10-05 Slow IV ity o f (PF)) 19:10: 20:58 Push, [place] injection 34 :07 Q5MIN PRN, Medi benjie 25 mcg 4 doses, Branch Starting on Mon05/11/22 at 1410, Until Mon05/11/22 at 1558, Routine, Pain (scale 4-6), PACU FENTanyl PF 2021-08 No 25ug 25 mcg, Un claudia (SUBLIMAZE 0-05 10-05 Slow IV ity o f (PF)) 19:10: 20:58 Push, [place] injection 34 :07 Q5MIN PRN, Medi benjie 25 mcg 4 doses, Branch Starting on Mon05/11/22 at 1410, Until Mon05/11/22 at 1558, Routine, Pain (scale 4-6), PACU NaCl 0.9% 2021-08 Yes 1000mL at 42 Unive rs (NS) IV 0-05 mL/hr, IV ity of infusion 19:00: Infusion, [place] 1,000 mL 00 CONTINUOUS Medic al , Starting Branch on Mon05/11/22 at 1400, Until Discontinu ed, Routine oxyCODONE 2021-08 Yes 5mg 5 mg, Univers immediate 0-05 Oral, ity of release 18:54: Q4HPRN, [place] tablet 5 mg 40 Starting Medi benjie on Mon Branch 05/11/22 at 1354, Until Discontinu ed, Routine, Pain (scale 7-10)<b r>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
F aculty member approving Restricted medication : ROSELYN DOSS naloxone 2021-08 Yes .1mg 0.1 mg, Univer s (NARCAN) 0-05 Slow IV ity of injection 18:53: Push, [place] 0.1 mg 10 SEE-INSTRU Medical CTIONS, Branch Starting on Mon05/11/22 at 1353, Until Discontinu ed, Routine bisacodyL 2021-08 Yes 10mg 10 mg, Univer s (DULCOLAX) 0-05 Rectal, ity of suppository 18:53: QHSPRN, [place] 10 mg 10 Starting Medical on Mon Branch 05/11/22 at 1353, Until Discontinu ed, Routine, Constipati on NaCl 0.9% 2021-08 Yes 5mL 5 mL, Slow Un claudia (NS) 0-05 IV Push, ity of injection 5 18:53: PRN - SEE [place] mL 10 [facility], Branch Starting on Mon05/11/22 at 1353, Until Discontinu ed, 10 mL naloxone 2021-08 Yes .1mg 0.1 mg, Univer s (NARCAN) 0-05 Slow IV ity of injection 18:53: Push, [place] 0.1 mg 10 SEE-INSTRU Medical [facility], Branch Starting on Mon05/11/22 at 1353, Until Discontinu ed, Routine bisacodyL 2021-08 Yes 10mg 10 mg, Univer s (DULCOLAX) 0-05 Rectal, ity of suppository 18:53: QHSPRN, [place] 10 mg 10 Starting Medical on Mon Branch 05/11/22 at 1353, Until Discontinu ed, Routine, Constipati on NaCl 0.9% 2021-08 Yes 5mL 5 mL, Slow Un claudia (NS) 0-05 IV Push, ity of injection 5 18:53: PRN - SEE [place] mL 10 [facility], Branch Starting on Mon05/11/22 at 1353, Until Discontinu ed, 10 mL vancomycin 2021-08- No PRN, Univer s (VANCOCIN) 0-05 10-05 Starting ity of 2 g in 18:20: 19:40 on Mon [place] sodium 00 :07 05/11/22 at Medical chloride 1320, Branch 0.9 % Until Wed irrigation 05/11/22 at 1440, 1,000 mL, Intra-op sodium 2021-08- No PRN, Univers chloride 0-05 10-05 Starting ity of 0.9 % 18:19: 19:40 on Mon [place] 00 :07 05/11/22 at Med ical solution 1319, Branch Until Mon05/11/22 at 1440, Intra-op methylPREDN 2021-08- No PRN, Unive rs ISolone 0-05 10-05 Starting ity of acetate 18:19: 19:40 on Mon (DEPO-MEDRO 00 :07 05/11/22 at Id dical L) 1319, Branch injection Until 05/11/22 at 1440, Routine, Intra-op bupivacaine 2021-08- No PRN, Unive rs liposome 0-05 10-05 Starting ity of (PF) 18:18: 19:40 on Mon (EXPAREL 00 :07 05/11/22 at Medic al (PF)) 1.3 % 1318, Branch (13.3 Until Wed mg/mL) 05/11/22 at injection 1440, Routine, Intra-op bupivacaine 2021-08- No PRN, Unive rs (preserv 0-05 10-05 Starting ity of free) 0.5% 18:18: 19:40 on Mona s (SENSORCAIN 00 :07 05/11/22 at Id dical E MPF) 0.5 1318, Branch % (5 mg/mL) Until Wed injection 05/11/22 at 1440, Routine, Intra-op lidocaine-e 2021-08- No PRN, Unive rs pinephrine 0-05 10-05 Starting ity of (XYLOCAINE 14:59: 19:40 on [place] WITH 00 :07 05/11/22 at Medical EPINEPHRINE 0959, Branch ) 0.5 Until Wed %-1:200,000 05/11/22 at injection 1440, Routine, Intra-op thrombin 2021-08- No PRN, Univers topical 0-05 10-05 Starting ity of solution 14:59: 19:40 on Mon [place] 00 :07 05/11/22 at Medical 0959, Branch Until 05/11/22 at 1440, Routine, Intra-op pregabalin 2021-08- No 75mg Take 75 mg Univers 75 mg 0-05 10-05 by mouth 2 ity of capsule 13:53: 00:00 (two) [place] 49 :00 times Medical daily. Branch pregabalin 2021-08- No 75mg Take 75 mg Univers 75 mg 0-05 10-05 by mouth 2 ity of capsule 13:53: 00:00 (two) [place] 49 :00 times Medical daily. Branch pregabalin 2021-08- No 75mg Take 75 mg Univers 75 mg 0-05 10-05 by mouth 2 ity of capsule 13:53: 00:00 (two) [place] 49 :00 times Medical daily. Branch budesonide- 2021-08 Yes 2{puff} Inhale 2 Univers formoteroL 0-05 Puffs. ity of 160-4.5 13:53: [place] mcg/actuati 48 Medical on inhaler Branch budesonide- 2021-08 Yes 2{puff} Inhale 2 Univers formoteroL 0-05 Puffs. ity of 160-4.5 07:00: [place] mcg/actuati 56 Medical on inhaler Branch pregabalin 2021-08 Yes 75mg Take 75 mg U nivers 75 mg 0-05 by mouth 2 ity of capsule 07:00: (two) [place] 56 times Medical daily. Branch FLUTICASONE 2021-08 Yes 50ug Use 50 mcg Univers PROPIONATE 0-05 in each ity of NASAL 07:00: nostril [place] 56 once daily Medical as needed Branch for Other (allergies ). ALBUTEROL 2021-08 Yes 8.5mg Inhale 8.5 U nivers INHALE 0-05 mg every 4 ity of 07:00: (four) [place] 56 hours as Medical needed Branch (wheezing) . acetaminoph 2021-08 Yes 1{tbl} Take 1 Un claudia en-codeine 0-05 tablet by ity of 300-30 mg 07:00: mouth [place] tablet 56 every 6 Medical (six) Branch hours as needed. FLUTICASONE 2021-08 Yes 50ug Use 50 mcg Univers PROPIONATE 0-05 in each ity of NASAL 07:00: nostril [place] 56 once daily Medical as needed Branch for Other (allergies ). ALBUTEROL 2021-08 Yes 8.5mg Inhale 8.5 U nivers INHALE 0-05 mg every 4 ity of 07:00: (four) [place] 56 hours as Medical needed Branch (wheezing) . acetaminoph 2021-08 Yes 1{tbl} Take 1 Un claudia en-codeine 0-05 tablet by ity of 300-30 mg 07:00: mouth [place] tablet 56 every 6 Medical (six) Branch hours as needed. tretinoin 2021-08 Yes [id number] Apply to Univers 0.025 % 0-03 affected ity of cream 00:00: area(s) at [place] 00 bedtime. Medical Branch tretinoin 2021-08 Yes [id number] Apply to Univers 0.025 % 0-03 affected ity of cream 00:00: area(s) at [place] 00 bedtime. Medical Branch tretinoin 2021-08 Yes [id number] Apply to Univers 0.025 % 0-03 affected ity of cream 00:00: area(s) at [place] 00 bedtime. [facility] tretinoin 2021-08 Yes [id number] Apply to [facility] 0.025 % 0-03 affected ity of cream 00:00: area(s) at [place] 00 bedtime. [facility] tretinoin 2021-08 Yes [id number] Apply to [facility] 0.025 % 0-03 affected ity of cream 00:00: area(s) at [place] 00 bedtime. [facility] tretinoin 2021-08 Yes [id number] Apply to [facility] 0.025 % 0-03 affected ity of cream 00:00: area(s) at [place] 00 bedtime. [facility] tretinoin 2021-08 Yes [id number] Apply to [facility] 0.025 % 0-03 affected ity of cream 00:00: area(s) at [place] 00 bedtime. [facility] tretinoin 2021-08 Yes [id number] Apply to [facility] 0.025 % 0-03 affected ity of cream 00:00: area(s) at [place] 00 bedtime. [facility] tretinoin 2021-08 Yes [id number] Apply to [facility] 0.025 % 0-03 affected ity of cream 00:00: area(s) at [place] 00 bedtime. [facility] tretinoin 2021-08 Yes [id number] Apply to [facility] 0.025 % 0-03 affected ity of cream 00:00: area(s) at [place] 00 bedtime. [facility] tretinoin 2021-08 Yes [id number] Apply to [facility] 0.025 % 0-03 affected ity of cream 00:00: area(s) at [place] 00 bedtime. [facility] tretinoin 2021-08 Yes [id number] Apply to [facility] 0.025 % 0-03 affected ity of cream 00:00: area(s) at [place] 00 bedtime. [facility] tretinoin 2021-08 Yes [id number] Apply to [facility] 0.025 % 0-03 affected ity of cream 00:00: area(s) at [place] 00 bedtime. [facility] tretinoin 2021-08 Yes [id number] Apply to [facility] 0.025 % 0-03 affected ity of cream 00:00: area(s) at [place] 00 bedtime. [facility] tretinoin 2021-08 Yes [id number] Apply to [facility] 0.025 % 0-03 affected ity of cream 00:00: area(s) at [place] 00 bedtime. [facility] tretinoin 2021-08 Yes [id number] Apply to [facility] 0.025 % 0-03 affected ity of cream 00:00: area(s) at [place] 00 bedtime. [facility] tretinoin 2021-08 Yes [id number] Apply to [facility] 0.025 % 0-03 affected ity of cream 00:00: area(s) at [place] 00 bedtime. [facility] tretinoin 2021-08 Yes [id number] Apply to [facility] 0.025 % 0-03 affected ity of cream 00:00: area(s) at [place] 00 bedtime. [facility] tretinoin 2021-08 Yes [id number] Apply to [facility] 0.025 % 0-03 affected ity of cream 00:00: area(s) at [place] 00 bedtime. [facility] tretinoin 2021-08 Yes [id number] Apply to [facility] 0.025 % 0-03 affected ity of cream 00:00: area(s) at [place] 00 bedtime. [facility] tretinoin 2021-08 Yes [id number] Apply to [facility] 0.025 % 0-03 affected ity of cream 00:00: area(s) at [place] 00 bedtime. [facility] tretinoin 2021-08 Yes [id number] Apply to [facility] 0.025 % 0-03 affected ity of cream 00:00: area(s) at [place] 00 bedtime. [facility] tretinoin 2021-08 Yes [id number] Apply to [facility] 0.025 % 0-03 affected ity of cream 00:00: area(s) at [place] 00 bedtime. [facility] tretinoin 2021-08 Yes [id number] Apply to [facility] 0.025 % 0-03 affected ity of cream 00:00: area(s) at [place] 00 bedtime. [facility] tretinoin 2021-08 Yes [id number] Apply to [facility] 0.025 % 0-03 affected ity of cream 00:00: area(s) at [place] 00 bedtime. [facility] tretinoin 2021-08 Yes [id number] Apply to [facility] 0.025 % 0-03 affected ity of cream 00:00: area(s) at [place] 00 bedtime. [facility] tretinoin 2021-08 Yes [id number] Apply to [facility] 0.025 % 0-03 affected ity of cream 00:00: area(s) at [place] 00 bedtime. [facility] tretinoin 2021-08 Yes [id number] Apply to [facility] 0.025 % 0-03 affected ity of cream 00:00: area(s) at [place] 00 bedtime. [facility] tretinoin 2021-08 Yes [id number] Apply to [facility] 0.025 % 0-03 affected ity of cream 00:00: area(s) at [place] 00 bedtime. [facility] tretinoin 2021-08 Yes [id number] Apply to [facility] 0.025 % 0-03 affected ity of cream 00:00: area(s) at [place] 00 bedtime. [facility] tretinoin 2021-08 Yes [id number] Apply to [facility] 0.025 % 0-03 affected ity of cream 00:00: area(s) at [place] 00 bedtime. [facility] tretinoin 2021-08 Yes [id number] Apply to [facility] 0.025 % 0-03 affected ity of cream 00:00: area(s) at [place] 00 bedtime. [facility] tretinoin 2021-08 Yes [id number] Apply to [facility] 0.025 % 0-03 affected ity of cream 00:00: area(s) at [place] 00 bedtime. [facility] tretinoin 2021-08 Yes [id number] Apply to [facility] 0.025 % 0-03 affected ity of cream 00:00: area(s) at [place] 00 bedtime. [facility] tretinoin 2021-08 Yes [id number] Apply to [facility] 0.025 % 0-03 affected ity of cream 00:00: area(s) at [place] 00 bedtime. [facility] tretinoin 2021-08 Yes [id number] Apply to [facility] 0.025 % 0-03 affected ity of cream 00:00: area(s) at [place] 00 bedtime. [facility] tretinoin 2021-08 Yes [id number] Apply to [facility] 0.025 % 0-03 affected ity of cream 00:00: area(s) at [place] 00 bedtime. [facility] tretinoin 2021-08 Yes [id number] Apply to [facility] 0.025 % 0-03 affected ity of cream 00:00: area(s) at [place] 00 bedtime. [facility] tretinoin 2021-08 Yes [id number] Apply to [facility] 0.025 % 0-03 affected ity of cream 00:00: area(s) at [place] 00 bedtime. [facility] tretinoin 2021-08 Yes [id number] Apply to [facility] 0.025 % 0-03 affected ity of cream 00:00: area(s) at [place] 00 bedtime. [facility] tretinoin 2021-08 Yes [id number] Apply to [facility] 0.025 % 0-03 affected ity of cream 00:00: area(s) at [place] 00 bedtime. [facility] tretinoin 2021-08 Yes [id number] Apply to [facility] 0.025 % 0-03 affected ity of cream 00:00: area(s) at [place] 00 bedtime. [facility] tretinoin 2021-08 Yes [id number] Apply to [facility] 0.025 % 0-03 affected ity of cream 00:00: area(s) at [place] 00 bedtime. [facility] tretinoin 2021-08 Yes [id number] Apply to [facility] 0.025 % 0-03 affected ity of cream 00:00: area(s) at [place] 00 bedtime. [facility] tretinoin 2021-08 Yes [id number] Apply to [facility] 0.025 % 0-03 affected ity of cream 00:00: area(s) at [place] 00 bedtime. [facility] tretinoin 2021-08 Yes [id number] Apply to [facility] 0.025 % 0-03 affected ity of cream 00:00: area(s) at [place] 00 bedtime. [facility] tretinoin 2021-08 Yes [id number] Apply to [facility] 0.025 % 0-03 affected ity of cream 00:00: area(s) at [place] 00 bedtime. [facility] tretinoin 2021-08 Yes [id number] Apply to [facility] 0.025 % 0-03 affected ity of cream 00:00: area(s) at [place] 00 bedtime. [facility] tretinoin 2021-08 Yes [id number] Apply to [facility] 0.025 % 0-03 affected ity of cream 00:00: area(s) at [place] 00 bedtime. [facility] tretinoin 2021-08 Yes [id number] Apply to [facility] 0.025 % 0-03 affected ity of cream 00:00: area(s) at [place] 00 bedtime. [facility] tretinoin 2021-08 Yes [id number] Apply to [facility] 0.025 % 0-03 affected ity of cream 00:00: area(s) at [place] 00 bedtime. [facility] tretinoin 2021-08 Yes [id number] Apply to [facility] 0.025 % 0-03 affected ity of cream 00:00: area(s) at [place] 00 bedtime. [facility] tretinoin 2021-08 Yes [id number] Apply to [facility] 0.025 % 0-03 affected ity of cream 00:00: area(s) at [place] 00 bedtime. [facility] tretinoin 2021-08 Yes [id number] Apply to [facility] 0.025 % 0-03 affected ity of cream 00:00: area(s) at [place] 00 bedtime. [facility] tretinoin 2021-08 Yes [id number] Apply to [facility] 0.025 % 0-03 affected ity of cream 00:00: area(s) at [place] 00 bedtime. [facility] tretinoin 2021-08 Yes [id number] Apply to [facility] 0.025 % 0-03 affected ity of cream 00:00: area(s) at [place] 00 bedtime. [facility] tretinoin 2021-08 Yes [id number] Apply to [facility] 0.025 % 0-03 affected ity of cream 00:00: area(s) at [place] 00 bedtime. [facility] tretinoin 2021-08 Yes [id number] Apply to [facility] 0.025 % 0-03 affected ity of cream 00:00: area(s) at [place] 00 bedtime. [facility] tretinoin 2021-08 Yes [id number] Apply to [facility] 0.025 % 0-03 affected ity of cream 00:00: area(s) at [place] 00 bedtime. [facility] tretinoin 2021-08 Yes [id number] Apply to [facility] 0.025 % 0-03 affected ity of cream 00:00: area(s) at [place] 00 bedtime. [facility] tretinoin 2021-08 Yes [id number] Apply to [facility] 0.025 % 0-03 affected ity of cream 00:00: area(s) at [place] 00 bedtime. [facility] tretinoin 2021-08 Yes [id number] Apply to [facility] 0.025 % 0-03 affected ity of cream 00:00: area(s) at [place] 00 bedtime. [facility] tretinoin 2021-08 Yes [id number] Apply to [facility] 0.025 % 0-03 affected ity of cream 00:00: area(s) at [place] 00 bedtime. [facility] tretinoin 2021-08 Yes [id number] Apply to [facility] 0.025 % 0-03 affected ity of cream 00:00: area(s) at [place] 00 bedtime. [facility] tretinoin 2021-08 Yes [id number] Apply to [facility] 0.025 % 0-03 affected ity of cream 00:00: area(s) at [place] 00 bedtime. [facility] tretinoin 2021-08 Yes [id number] Apply to [facility] 0.025 % 0-03 affected ity of cream 00:00: area(s) at [place] 00 bedtime. [facility] tretinoin 2021-08 Yes [id number] Apply to [facility] 0.025 % 0-03 affected ity of cream 00:00: area(s) at [place] 00 bedtime. [facility] tretinoin 2021-08 Yes [id number] Apply to [facility] 0.025 % 0-03 affected ity of cream 00:00: area(s) at [place] 00 bedtime. [facility] tretinoin 2021-08 Yes [id number] Apply to [facility] 0.025 % 0-03 affected ity of cream 00:00: area(s) at [place] 00 bedtime. [facility] tretinoin 2021-08 Yes [id number] Apply to [facility] 0.025 % 0-03 affected ity of cream 00:00: area(s) at [place] 00 bedtime. [facility] tretinoin 2021-08 Yes [id number] Apply to [facility] 0.025 % 0-03 affected ity of cream 00:00: area(s) at [place] 00 bedtime. [facility] tretinoin 2021-08 Yes [id number] Apply to [facility] 0.025 % 0-03 affected ity of cream 00:00: area(s) at [place] 00 bedtime. [facility] tretinoin 2021-08 Yes [id number] Apply to [facility] 0.025 % 0-03 affected ity of cream 00:00: area(s) at [place] 00 bedtime. [facility] tretinoin 2021-08 Yes [id number] Apply to [facility] 0.025 % 0-03 affected ity of cream 00:00: area(s) at [place] 00 bedtime. [facility] tretinoin 2021-08 Yes [id number] Apply to [facility] 0.025 % 0-03 affected ity of cream 00:00: area(s) at [place] 00 bedtime. [facility] tretinoin 2021-08 Yes [id number] Apply to [facility] 0.025 % 0-03 affected ity of cream 00:00: area(s) at [place] 00 bedtime. [facility] tretinoin 2021-08 Yes [id number] Apply to [facility] 0.025 % 0-03 affected ity of cream 00:00: area(s) at [place] 00 bedtime. [facility] tretinoin 2021-08 Yes [id number] Apply to [facility] 0.025 % 0-03 affected [facility]y of cream 00:00: [facility] [place] [facility] tret[facility]in 2021-08 Yes [id number] Apply to [facility] 0.025 % 0-03 affected ity of cream 00:00: area(s) at [place] 00 bedtime. [facility] tretinoin 2021-08 Yes [id number] Apply to [facility] 0.025 % 0-03 affected ity of cream 00:00: area(s) at [place] 00 bedtime. [facility] tretinoin 2021-08 Yes [id number] Apply to [facility] 0.025 % 0-03 affected ity of cream 00:00: area(s) at [place] 00 bedtime. [facility] tretinoin 2021-08 Yes [id number] Apply to [facility] 0.025 % 0-03 affected ity of cream 00:00: area(s) at [place] 00 bedtime. [facility] tretinoin 2021-08 Yes [id number] Apply to [facility] 0.025 % 0-03 affected ity of cream 00:00: area(s) at [place] 00 bedtime. [facility] tretinoin 2021-08 Yes [id number] Apply to [facility] 0.025 % 0-03 affected ity of cream 00:00: area(s) at [place] 00 bedtime. [facility] tretinoin 2021-08 Yes [id number] Apply to [facility] 0.025 % 0-03 affected ity of cream 00:00: area(s) at [place] 00 bedtime. [facility] tretinoin 2021-08 Yes [id number] Apply to [facility] 0.025 % 0-03 affected ity of cream 00:00: area(s) at [place] 00 bedtime. [facility] tretinoin 2021-08 Yes [id number] Apply to [facility] 0.025 % 0-03 affected ity of cream 00:00: area(s) at [place] 00 bedtime. [facility] tretinoin 2021-08 Yes [id number] Apply to [facility] 0.025 % 0-03 affected ity of cream 00:00: area(s) at [place] 00 bedtime. [facility] tretinoin 2021-08 Yes [id number] Apply to [facility] 0.025 % 0-03 affected ity of cream 00:00: area(s) at [place] 00 bedtime. [facility] tretinoin 2021-08 Yes [id number] Apply to [facility] 0.025 % 0-03 affected ity of cream 00:00: area(s) at [place] 00 bedtime. [facility] tretinoin 2021-08 Yes [id number] Apply to [facility] 0.025 % 0-03 affected ity of cream 00:00: area(s) at [place] 00 bedtime. [facility] tretinoin 2021-08 Yes [id number] Apply to [facility] 0.025 % 0-03 affected ity of cream 00:00: area(s) at [place] 00 bedtime. [facility] tretinoin 2021-08 Yes [id number] Apply to [facility] 0.025 % 0-03 affected ity of cream 00:00: area(s) at [place] 00 bedtime. [facility] tretinoin 2021-08 Yes [id number] Apply to [facility] 0.025 % 0-03 affected ity of cream 00:00: area(s) at [place] 00 bedtime. [facility] Branch pregabalin 2022-0 Yes 75mg Take 75 mg [facility] nivers 75 mg 9-30 by mouth 2 ity of capsule 15:16: (two) [place] 08 times Medical daily. Branch FLUTICASONE 2022-0 Yes 50ug Use 50 mcg [facility] PROPIONATE 9-30 in each ity of NASAL 15:16: nostril [place] 08 once daily Medical as needed Branch for Other (allergies ). ALBUTEROL 2022-0 Yes 8.5mg Inhale 8.5 U nivers INHALE 9-30 mg every 4 ity of 15:16: (four) [place] 08 hours as Medical needed Branch (wheezing) . acetaminoph 2022-0 Yes 1{tbl} Take 1 Un claudia en-codeine 9-30 tablet by ity of 300-30 mg 15:16: mouth [place] tablet 08 every 6 Medical (six) Branch hours as needed. pregabalin 2022-0 Yes 75mg Take 75 mg U nivers 75 mg 9-30 by mouth 2 ity of capsule 15:16: (two) [place] 08 times Medical daily. Branch FLUTICASONE 2022-0 Yes 50ug Use 50 mcg [facility] PROPIONATE 9-30 in each ity of NASAL 15:16: nostril [place] 08 once daily Medical as needed Branch for Other (allergies ). ALBUTEROL 2022-0 Yes 8.5mg Inhale 8.5 U nivers INHALE 9-30 mg every 4 ity of 15:16: (four) [place] 08 hours as Medical needed Branch (wheezing) . acetaminoph 2022-0 Yes 1{tbl} Take 1 Un claudia en-codeine 9-30 tablet by ity of 300-30 mg 15:16: mouth [place] tablet 08 every 6 Medical (six) Branch hours as needed. pregabalin 2022-0 Yes 75mg Take 75 mg U nivers 75 mg 9-30 by mouth 2 ity of capsule 15:16: (two) [place] 08 times Medical daily. Branch FLUTICASONE 2022-0 Yes 50ug Use 50 mcg [facility] PROPIONATE 9-30 in each ity of NASAL 15:16: nostril [place] 08 once daily Medical as needed Branch for Other (allergies ). ALBUTEROL 2022-0 Yes 8.5mg Inhale 8.5 U nivers INHALE 9-30 mg every 4 ity of 15:16: (four) [place] 08 hours as Medical needed Branch (wheezing) . acetaminoph Yes 1{tbl} Take 1 Un claudia en-codeine 9-30 tablet by ity of 300-30 mg 15:16: mouth [place] tablet 08 every 6 Medical (six) Branch hours as needed. pregabalin 2021-2- No [id number] 150mg Take 1 [facility] (LYRICA) 04-25 capsule by ity of 150 mg 00:00: 05:59 mouth in [place] capsule 00 :00 the Medical morning Branch and 1 capsule in the evening. Do all this for 90 days. pregabalin 2021-0 2021- No [id number] 150mg Take 1 [facility] (LYRICA) 04-25 capsule by ity of 150 mg 00:00: 05:59 mouth in [place] capsule 00 :00 the Medical morning Branch and 1 capsule in the evening. Do all this for 90 days. pregabalin 2021-0 2021- No [id number] 150mg Take 1 [facility] (LYRICA) 04-25 capsule by ity of 150 mg 00:00: 05:59 mouth in [place] capsule 00 :00 the Medical morning Branch and 1 capsule in the evening. Do all this for 90 days. pregabalin 2021-0 2021- No [id number] 150mg Take 1 [facility] (LYRICA) 04-25 capsule by ity of 150 mg 00:00: 05:59 mouth in [place] capsule 00 :00 the Medical morning Branch and 1 capsule in the evening. Do all this for 90 days. pregabalin 2021-0 2- No [id number] 150mg Take 1 [facility] (LYRICA) 04-25 capsule by ity of 150 mg 00:00: 05:59 mouth in [place] capsule 00 :00 the Medical morning Branch and 1 capsule in the evening. Do all this for 90 days. pregabalin 2021-0 2- No [id number] 150mg Take 1 [facility] (LYRICA) 04-25 capsule by ity of 150 mg 00:00: 05:59 mouth in [place] capsule 00 :00 the Medical morning Branch and 1 capsule in the evening. Do all this for 90 days. pregabalin 2021-2021- No [id number] 150mg Take 1 [facility] (LYRICA) 04-25 capsule by ity of 150 mg 00:00: 05:59 mouth in [place] capsule 00 :00 the Medical morning Branch and 1 capsule in the evening. Do all this for 90 days. pregabalin 2021-0 2- No [id number] 150mg Take 1 [facility] (LYRICA) 04-25 capsule by ity of 150 mg 00:00: 00:00 mouth in [place] capsule 00 :00 the Medical morning Branch and 1 capsule in the evening. Do all this for 90 days. pregabalin 2021-0 2021- No [id number] 150mg Take 1 [facility] (LYRICA) 04-25 capsule by ity of 150 mg 00:00: 00:00 mouth in [place] capsule 00 :00 the Medical morning Branch and 1 capsule in the evening. Do all this for 90 days. bromphenira 2021-2- No [id number] 10mL Take 10 mL [facility] mine-pseudo 04-09 by mouth 4 i ty of ephedrine-D 00:00: 04:59 (four) [place] as M 2-30-10 00 :00 times Medical mg/5 mL daily as Branch syrup needed for Congestion /Allergies for up to 7 days. bromphenira 2021-2021- No [id number] 10mL Take 10 mL [facility] mine-pseudo 04-09 by mouth 4 i ty of ephedrine-D 00:00: 04:59 (four) [place] as M 2-30-10 00 :00 times Medical mg/5 mL daily as Branch syrup needed for Congestion /Allergies for up to 7 days. ketoconazol Yes [id number] Apply to [facility] e 2 % cream 7-14 area(s) 2 ity of 00:00: (two) [place] 00 times Medical daily. Branch hydrocortis 0 Yes [id number] Apply to [facility] one 2.5 % 7-14 affected ity of cream 00:00: area(s) 2 [place] 00 (two) Medical times Branch daily. Safe for the face. ketoconazol 2021-0 Yes [id number] Apply to [facility] e 2 % cream 7-14 area(s) 2 ity of 00:00: (two) [place] 00 times Medical daily. Branch hydrocortis 2-0 Yes [id number] Apply to [facility] one 2.5 % 7-14 affected ity of cream 00:00: area(s) 2 [place] (two) Medical times Branch daily. Safe for the face. ketoconazol 2-0 Yes [id number] Apply to [facility] e 2 % cream 7-14 area(s) 2 ity of 00:00: (two) [place] 00 times Medical daily. Branch hydrocortis 2-0 Yes [id number] Apply to [facility] one 2.5 % 7-14 affected ity of cream 00:00: area(s) 2 [place] (two) Medical times [place] daily. Safe for the face. ketoconazol 2-0 Yes [id number] Apply to [facility] e 2 % cream 7-14 area(s) 2 ity of 00:00: (two) [place] 00 times Medical daily. Branch hydrocortis 2021-0 Yes [id number] Apply to [facility] one 2.5 % 7-14 affected ity of cream 00:00: area(s) 2 [place] (two) Medical times [place] daily. Safe for the face. ketoconazol 2-0 Yes [id number] Apply to [facility] e 2 % cream 7-14 area(s) 2 ity of 00:00: (two) [place] 00 times Medical daily. Branch hydrocortis 2-0 Yes [id number] Apply to [facility] one 2.5 % 7-14 affected ity of cream 00:00: area(s) 2 [place] (two) Medical times [place] daily. Safe for the face. ketoconazol 2-0 Yes [id number] Apply to [facility] e 2 % cream 7-14 area(s) 2 ity of 00:00: (two) [place] 00 times Medical daily. Branch hydrocortis 2-0 Yes [id number] Apply to [facility] one 2.5 % 7-14 affected ity of cream 00:00: area(s) 2 [place] (two) Medical times [place] daily. Safe for the face. ketoconazol 2022-0 Yes [id number] Apply to [facility] e 2 % cream 7-14 area(s) 2 ity of 00:00: (two) [place] 00 times Medical daily. Branch hydrocortis 2022-0 Yes [id number] Apply to [facility] one 2.5 % 7-14 affected ity of cream 00:00: area(s) 2 [place] 00 (two) Medical times Branch daily. Safe for the face. ketoconazol 2-0 Yes [id number] Apply to [facility] e 2 % cream 7-14 area(s) 2 ity of 00:00: (two) [place] 00 times Medical daily. Branch hydrocortis 2021-0 Yes [id number] Apply to [facility] one 2.5 % 7-14 affected ity of cream 00:00: area(s) 2 [place] 00 (two) Medical times Branch daily. Safe for the face. ketoconazol 2-0 Yes [id number] Apply to [facility] e 2 % cream 7-14 area(s) 2 ity of 00:00: (two) [place] 00 times Medical daily. Branch hydrocortis 2021-0 Yes [id number] Apply to [facility] one 2.5 % 7-14 affected ity of cream 00:00: area(s) 2 [place] 00 (two) Medical times Branch daily. Safe for the face. ketoconazol 2-0 Yes [id number] Apply to [facility] e 2 % cream 7-14 area(s) 2 ity of 00:00: (two) [place] 00 times Medical daily. Branch hydrocortis 2021-0 Yes [id number] Apply to [facility] one 2.5 % 7-14 affected ity of cream 00:00: area(s) 2 [place] 00 (two) Medical times Branch daily. Safe for the face. ketoconazol 2-0 Yes [id number] Apply to [facility] e 2 % cream 7-14 area(s) 2 ity of 00:00: (two) [place] 00 times Medical daily. Branch hydrocortis 2-0 Yes [id number] Apply to [facility] one 2.5 % 7-14 affected ity of cream 00:00: area(s) 2 [place] 00 (two) Medical times Branch daily. Safe for the face. ketoconazol 2022-0 Yes [id number] Apply to [facility] e 2 % cream 7-14 area(s) 2 ity of 00:00: (two) [place] 00 times Medical daily. Branch hydrocortis 2022-0 Yes [id number] Apply to [facility] one 2.5 % 7-14 affected ity of cream 00:00: area(s) 2 [place] 00 (two) Medical times Branch daily. Safe for the face. ketoconazol 2022-0 Yes [id number] Apply to [facility] e 2 % cream 7-14 area(s) 2 ity of 00:00: (two) [place] 00 times Medical daily. Branch hydrocortis 2-0 Yes [id number] Apply to [facility] one 2.5 % 7-14 affected ity of cream 00:00: area(s) 2 [place] 00 (two) Medical times Branch daily. Safe for the face. ketoconazol 2-0 Yes [id number] Apply to [facility] e 2 % cream 7-14 area(s) 2 ity of 00:00: (two) [place] 00 times Medical daily. Branch hydrocortis 2022-0 Yes [id number] Apply to [facility] one 2.5 % 7-14 affected ity of cream 00:00: area(s) 2 [place] (two) Medical times Branch daily. Safe for the face. ketoconazol 2-0 Yes [id number] Apply to [facility] e 2 % cream 7-14 area(s) 2 ity of 00:00: (two) [place] 00 times Medical daily. Branch hydrocortis 2021-0 Yes [id number] Apply to [facility] one 2.5 % 7-14 affected ity of cream 00:00: area(s) 2 [place] (two) Medical times Branch daily. Safe for the face. ketoconazol 2-0 Yes [id number] Apply to [facility] e 2 % cream 7-14 area(s) 2 ity of 00:00: (two) [place] 00 times Medical daily. Branch hydrocortis 2-0 Yes [id number] Apply to [facility] one 2.5 % 7-14 affected ity of cream 00:00: area(s) 2 [place] 00 (two) Medical times Branch daily. Safe for the face. ketoconazol 2022-0 Yes [id number] Apply to [facility] e 2 % cream 7-14 area(s) 2 ity of 00:00: (two) [place] 00 times Medical daily. Branch hydrocortis 2022-0 Yes [id number] Apply to [facility] one 2.5 % 7-14 affected ity of cream 00:00: area(s) 2 [place] 00 (two) Medical times Branch daily. Safe for the face. ketoconazol 2022-0 Yes [id number] Apply to [facility] e 2 % cream 7-14 area(s) 2 ity of 00:00: (two) [place] 00 times Medical daily. Branch hydrocortis 2-0 Yes [id number] Apply to [facility] one 2.5 % 7-14 affected ity of cream 00:00: area(s) 2 [place] 00 (two) Medical times Branch daily. Safe for the face. ketoconazol 2-0 Yes [id number] Apply to [facility] e 2 % cream 7-14 area(s) 2 ity of 00:00: (two) [place] 00 times Medical daily. Branch hydrocortis 2021-0 Yes [id number] Apply to [facility] one 2.5 % 7-14 affected ity of cream 00:00: area(s) 2 [place] 00 (two) Medical times Branch daily. Safe for the face. ketoconazol 2-0 Yes [id number] Apply to [facility] e 2 % cream 7-14 area(s) 2 ity of 00:00: (two) [place] 00 times Medical daily. Branch hydrocortis 2021-0 Yes [id number] Apply to [facility] one 2.5 % 7-14 affected ity of cream 00:00: area(s) 2 [place] 00 (two) Medical times Branch daily. Safe for the face. ketoconazol 2-0 Yes [id number] Apply to [facility] e 2 % cream 7-14 area(s) 2 ity of 00:00: (two) [place] 00 times Medical daily. Branch hydrocortis 2021-0 Yes [id number] Apply to [facility] one 2.5 % 7-14 affected ity of cream 00:00: area(s) 2 [place] 00 (two) Medical times Branch daily. Safe for the face. ketoconazol 2-0 Yes [id number] Apply to [facility] e 2 % cream 7-14 area(s) 2 ity of 00:00: (two) [place] 00 times Medical daily. Branch hydrocortis 2-0 Yes [id number] Apply to [facility] one 2.5 % 7-14 affected ity of cream 00:00: area(s) 2 [place] 00 (two) Medical times Branch daily. Safe for the face. ketoconazol 2022-0 Yes [id number] Apply to [facility] e 2 % cream 7-14 area(s) 2 ity of 00:00: (two) [place] 00 times Medical daily. Branch hydrocortis 2-0 Yes [id number] Apply to [facility] one 2.5 % 7-14 affected ity of cream 00:00: area(s) 2 [place] 00 (two) Medical times Branch daily. Safe for the face. ketoconazol 2-0 Yes [id number] Apply to [facility] e 2 % cream 7-14 area(s) 2 ity of 00:00: (two) [place] 00 times Medical daily. Branch hydrocortis 2021-0 Yes [id number] Apply to [facility] one 2.5 % 7-14 affected ity of cream 00:00: area(s) 2 [place] 00 (two) Medical times Branch daily. Safe for the face. ketoconazol 2-0 Yes [id number] Apply to [facility] e 2 % cream 7-14 area(s) 2 ity of 00:00: (two) [place] 00 times Medical daily. Branch hydrocortis 2021-0 Yes [id number] Apply to [facility] one 2.5 % 7-14 affected ity of cream 00:00: area(s) 2 [place] 00 (two) Medical times [place] daily. Safe for the face. ketoconazol 2-0 Yes [id number] Apply to [facility] e 2 % cream 7-14 area(s) 2 ity of 00:00: (two) [place] 00 times Medical daily. Branch hydrocortis 2021-0 Yes [id number] Apply to [facility] 2.5 % 7-14 affected ity of cream 00:00: area(s) 2 [place] 00 (two) Medical times [place] daily. Safe for the face. ketoconazol 2-0 Yes [id number] Apply to [facility] 2 % cream 7-14 area(s) 2 ity of 00:00: (two) [place] 00 times Medical daily. Branch hydrocortis 2-0 Yes [id number] Apply to [facility] 2.5 % 7-14 affected ity of cream 00:00: area(s) 2 [place] 00 (two) Medical times Branch daily. Safe for the face. ketoconazol 2022-0 Yes [id number] Apply to [facility] 2 % cream 7-14 area(s) 2 ity of 00:00: (two) [place] 00 times Medical daily. Branch hydrocortis 2021-0 Yes [id number] Apply to [facility] 2.5 % 7-14 affected ity of cream 00:00: area(s) 2 [place] (two) Medical times [place] daily. Safe for the face. ketoconazol 2-0 Yes [id number] Apply to [facility] 2 % cream 7-14 area(s) 2 ity of 00:00: (two) [place] 00 times Medical daily. Branch hydrocortis 2021-0 Yes [id number] Apply to [facility] 2.5 % 7-14 affected ity of cream 00:00: area(s) 2 [place] (two) Medical times [place] daily. Safe for the face. ketoconazol 2021-0 Yes [id number] Apply to [facility] 2 % cream 7-14 area(s) 2 ity of 00:00: (two) [place] 00 times Medical daily. Branch hydrocortis 2021-0 Yes [id number] Apply to [facility] 2.5 % 7-14 affected ity of cream 00:00: area(s) 2 [place] (two) Medical times [place] daily. Safe for the face. ketoconazol 2021-0 Yes [id number] Apply to [facility] 2 % cream 7-14 area(s) 2 ity of 00:00: (two) [place] 00 times Medical daily. Branch hydrocortis 2021-0 Yes [id number] Apply to [facility] 2.5 % 7-14 affected ity of cream 00:00: area(s) 2 [place] (two) Medical times [place] daily. Safe for the face. ketoconazol 2-0 Yes [id number] Apply to [facility] 2 % cream 7-14 area(s) 2 ity of 00:00: (two) [place] 00 times Medical daily. Branch hydrocortis 2021-0 Yes [id number] Apply to [facility] 2.5 % 7-14 affected ity of cream 00:00: area(s) 2 [place] (two) Medical times [place] daily. Safe for the face. ketoconazol 2-0 Yes [id number] Apply to [facility] 2 % cream 7-14 area(s) 2 ity of 00:00: (two) [place] 00 times Medical daily. Branch hydrocortis 2-0 Yes [id number] Apply to [facility] 2.5 % 7-14 affected ity of cream 00:00: area(s) 2 [place] 00 (two) Medical times Branch daily. Safe for the face. ketoconazol 2022-0 Yes [id number] Apply to [facility] 2 % cream 7-14 area(s) 2 ity of 00:00: (two) [place] 00 times Medical daily. Branch hydrocortis 2022-0 Yes [id number] Apply to [facility] 2.5 % 7-14 affected ity of cream 00:00: area(s) 2 [place] 00 (two) Medical times Branch daily. Safe for the face. ketoconazol 2-0 Yes [id number] Apply to [facility] 2 % cream 7-14 area(s) 2 ity of 00:00: (two) [place] 00 times Medical daily. Branch hydrocortis 2-0 Yes [id number] Apply to [facility] 2.5 % 7-14 affected ity of cream 00:00: area(s) 2 [place] 00 (two) Medical times Branch daily. Safe for the face. ketoconazol 2-0 Yes [id number] Apply to [facility] 2 % cream 7-14 area(s) 2 ity of 00:00: (two) [place] 00 times Medical daily. Branch hydrocortis 2-0 Yes [id number] Apply to [facility] 2.5 % 7-14 affected ity of cream 00:00: area(s) 2 [place] 00 (two) Medical times Branch daily. Safe for the face. ketoconazol 2-0 Yes [id number] Apply to [facility] 2 % cream 7-14 area(s) 2 ity of 00:00: (two) [place] 00 times Medical daily. Branch hydrocortis 2-0 Yes [id number] Apply to [facility] 2.5 % 7-14 affected ity of cream 00:00: area(s) 2 [place] 00 (two) Medical times Branch daily. Safe for the face. ketoconazol 2022-0 Yes [id number] Apply to [facility] 2 % cream 7-14 area(s) 2 ity of 00:00: (two) [place] 00 times Medical daily. Branch hydrocortis 2022-0 Yes [id number] Apply to [facility] 2.5 % 7-14 affected ity of cream 00:00: area(s) 2 [place] 00 (two) Medical times Branch daily. Safe for the face. ketoconazol 2022-0 Yes [id number] Apply to [facility] 2 % cream 7-14 area(s) 2 ity of 00:00: (two) [place] 00 times Medical daily. Branch hydrocortis 2022-0 Yes [id number] Apply to [facility] 2.5 % 7-14 affected ity of cream 00:00: area(s) 2 [place] 00 (two) Medical times Branch daily. Safe for the face. ketoconazol 2022-0 Yes [id number] Apply to [facility] 2 % cream 7-14 area(s) 2 ity of 00:00: (two) [place] 00 times Medical daily. Branch hydrocortis 2022-0 Yes [id number] Apply to [facility] 2.5 % 7-14 affected ity of cream 00:00: area(s) 2 [place] (two) Medical times Branch daily. Safe for the face. ketoconazol 2-0 Yes [id number] Apply to [facility] 2 % cream 7-14 area(s) 2 ity of 00:00: (two) [place] 00 times Medical daily. Branch hydrocortis 2-0 Yes [id number] Apply to [facility] 2.5 % 7-14 affected ity of cream 00:00: area(s) 2 [place] (two) Medical times Branch daily. Safe for the face. ketoconazol 2-0 Yes [id number] Apply to [facility] 2 % cream 7-14 area(s) 2 ity of 00:00: (two) [place] 00 times Medical daily. Branch hydrocortis 2022-0 Yes [id number] Apply to [facility] 2.5 % 7-14 affected ity of cream 00:00: area(s) 2 [place] (two) Medical times Branch daily. Safe for the face. ketoconazol 2022-0 Yes [id number] Apply to [facility] 2 % cream 7-14 area(s) 2 ity of 00:00: (two) [place] 00 times Medical daily. Branch hydrocortis 2022-0 Yes [id number] Apply to [facility] 2.5 % 7-14 affected ity of cream 00:00: area(s) 2 [place] 00 (two) Medical times Branch daily. Safe for the face. ketoconazol 2022-0 Yes [id number] Apply to [facility] 2 % cream 7-14 area(s) 2 ity of 00:00: (two) [place] 00 times Medical daily. Branch hydrocortis 2021-0 Yes [id number] Apply to [facility] 2.5 % 7-14 affected ity of cream 00:00: area(s) 2 [place] 00 (two) Medical times Branch daily. Safe for the face. ketoconazol 2-0 Yes [id number] Apply to [facility] 2 % cream 7-14 area(s) 2 ity of 00:00: (two) [place] 00 times Medical daily. Branch hydrocortis 2021-0 Yes [id number] Apply to [facility] 2.5 % 7-14 affected ity of cream 00:00: area(s) 2 [place] 00 (two) Medical times Branch daily. Safe for the face. ketoconazol 2-0 Yes [id number] Apply to [facility] 2 % cream 7-14 area(s) 2 ity of 00:00: (two) [place] 00 times Medical daily. Branch hydrocortis 2021-0 Yes [id number] Apply to [facility] 2.5 % 7-14 affected ity of cream 00:00: area(s) 2 [place] (two) Medical times [place] daily. Safe for the face. ketoconazol 2-0 Yes [id number] Apply to [facility] 2 % cream 7-14 area(s) 2 ity of 00:00: (two) [place] 00 times Medical daily. Branch hydrocortis 2021-0 Yes [id number] Apply to [facility] 2.5 % 7-14 affected ity of cream 00:00: area(s) 2 [place] 00 (two) Medical times Branch daily. Safe for the face. ketoconazol 2-0 Yes [id number] Apply to [facility] 2 % cream 7-14 area(s) 2 ity of 00:00: (two) [place] 00 times Medical daily. Branch hydrocortis 2022-0 Yes [id number] Apply to [facility] 2.5 % 7-14 affected ity of cream 00:00: area(s) 2 [place] 00 (two) Medical times Branch daily. Safe for the face. ketoconazol 2-0 Yes [id number] Apply to [facility] 2 % cream 7-14 area(s) 2 ity of 00:00: (two) [place] 00 times Medical daily. Branch hydrocortis 2022-0 Yes [id number] Apply to [facility] 2.5 % 7-14 affected ity of cream 00:00: area(s) 2 [place] (two) Medical times Branch daily. Safe for the face. ketoconazol 2022-0 Yes [id number] Apply to [facility] 2 % cream 7-14 area(s) 2 ity of 00:00: (two) [place] 00 times Medical daily. Branch hydrocortis 2-0 Yes [id number] Apply to [facility] 2.5 % 7-14 affected ity of cream 00:00: area(s) 2 [place] (two) Medical times Branch daily. Safe for the face. ketoconazol 2-0 Yes [id number] Apply to [facility] 2 % cream 7-14 area(s) 2 ity of 00:00: (two) [place] 00 times Medical daily. Branch hydrocortis 2021-0 Yes [id number] Apply to [facility] 2.5 % 7-14 affected ity of cream 00:00: area(s) 2 [place] (two) Medical times Branch daily. Safe for the face. ketoconazol 2-0 Yes [id number] Apply to [facility] 2 % cream 7-14 area(s) 2 ity of 00:00: (two) [place] 00 times Medical daily. Branch hydrocortis 2021-0 Yes [id number] Apply to [facility] 2.5 % 7-14 affected ity of cream 00:00: area(s) 2 [place] (two) Medical times Branch daily. Safe for the face. ketoconazol 2-0 Yes [id number] Apply to [facility] 2 % cream 7-14 area(s) 2 ity of 00:00: (two) [place] 00 times Medical daily. Branch hydrocortis 2022-0 Yes [id number] Apply to [facility] 2.5 % 7-14 affected ity of cream 00:00: area(s) 2 [place] (two) Medical times Branch daily. Safe for the face. ketoconazol 2022-0 Yes [id number] Apply to [facility] 2 % cream 7-14 area(s) 2 ity of 00:00: (two) [place] 00 times Medical daily. Branch hydrocortis 2022-0 Yes [id number] Apply to [facility] 2.5 % 7-14 affected ity of cream 00:00: area(s) 2 [place] (two) Medical times [place] daily. Safe for the face. ketoconazol 2021-0 Yes [id number] Apply to [facility] 2 % cream 7-14 area(s) 2 ity of 00:00: (two) [place] 00 times Medical daily. Branch hydrocortis 2021-0 Yes [id number] Apply to [facility] 2.5 % 7-14 affected ity of cream 00:00: area(s) 2 [place] 00 (two) Medical times [place] daily. Safe for the face. ketoconazol 2021-0 Yes [id number] Apply to [facility] 2 % cream 7-14 area(s) 2 ity of 00:00: (two) [place] 00 times Medical daily. Branch hydrocortis 2021-0 Yes [id number] Apply to [facility] 2.5 % 7-14 affected ity of cream 00:00: area(s) 2 [place] (two) Medical times [place] daily. Safe for the face. ketoconazol 2021-0 Yes [id number] Apply to [facility] 2 % cream 7-14 area(s) 2 ity of 00:00: (two) [place] 00 times Medical daily. Branch hydrocortis 2021-0 Yes [id number] Apply to [facility] 2.5 % 7-14 affected ity of cream 00:00: area(s) 2 [place] 00 (two) Medical times [place] daily. Safe for the face. ketoconazol 2021-0 Yes [id number] Apply to [facility] 2 % cream 7-14 area(s) 2 ity of 00:00: (two) [place] 00 times Medical daily. Branch hydrocortis 2021-0 Yes [id number] Apply to [facility] 2.5 % 7-14 affected ity of cream 00:00: area(s) 2 [place] 00 (two) Medical times [place] daily. Safe for the face. ketoconazol 2-0 Yes [id number] Apply to [facility] 2 % cream 7-14 area(s) 2 ity of 00:00: (two) [place] 00 times Medical daily. Branch hydrocortis 2021-0 Yes [id number] Apply to [facility] 2.5 % 7-14 affected ity of cream 00:00: area(s) 2 [place] 00 (two) Medical times Branch daily. Safe for the face. ketoconazol 2022-0 Yes [id number] Apply to [facility] 2 % cream 7-14 area(s) 2 ity of 00:00: (two) [place] 00 times Medical daily. Branch hydrocortis 2022-0 Yes [id number] Apply to [facility] 2.5 % 7-14 affected ity of cream 00:00: area(s) 2 [place] 00 (two) Medical times Branch daily. Safe for the face. ketoconazol 2-0 Yes [id number] Apply to [facility] 2 % cream 7-14 area(s) 2 ity of 00:00: (two) [place] 00 times Medical daily. Branch hydrocortis 2-0 Yes [id number] Apply to [facility] 2.5 % 7-14 affected ity of cream 00:00: area(s) 2 [place] 00 (two) Medical times Branch daily. Safe for the face. ketoconazol 2-0 Yes [id number] Apply to [facility] 2 % cream 7-14 area(s) 2 ity of 00:00: (two) [place] 00 times Medical daily. Branch hydrocortis 2-0 Yes [id number] Apply to [facility] 2.5 % 7-14 affected ity of cream 00:00: area(s) 2 [place] 00 (two) Medical times Branch daily. Safe for the face. ketoconazol 2022-0 Yes [id number] Apply to [facility] 2 % cream 7-14 area(s) 2 ity of 00:00: (two) [place] 00 times Medical daily. Branch hydrocortis 2022-0 Yes [id number] Apply to [facility] 2.5 % 7-14 affected ity of cream 00:00: area(s) 2 [place] 00 (two) Medical times Branch daily. Safe for the face. ketoconazol 2022-0 Yes [id number] Apply to [facility] 2 % cream 7-14 area(s) 2 ity of 00:00: (two) [place] 00 times Medical daily. Branch hydrocortis 2022-0 Yes [id number] Apply to [facility] 2.5 % 7-14 affected ity of cream 00:00: area(s) 2 [place] 00 (two) Medical times Branch daily. Safe for the face. ketoconazol 2022-0 Yes [id number] Apply to [facility] 2 % cream 7-14 area(s) 2 ity of 00:00: (two) [place] 00 times Medical daily. Branch hydrocortis 2022-0 Yes [id number] Apply to [facility] 2.5 % 7-14 affected ity of cream 00:00: area(s) 2 [place] 00 (two) Medical times Branch daily. Safe for the face. ketoconazol 2022-0 Yes [id number] Apply to [facility] 2 % cream 7-14 area(s) 2 ity of 00:00: (two) [place] 00 times Medical daily. Branch hydrocortis 2022-0 Yes [id number] Apply to [facility] 2.5 % 7-14 affected ity of cream 00:00: area(s) 2 [place] 00 (two) Medical times Branch daily. Safe for the face. ketoconazol 2-0 Yes [id number] Apply to [facility] 2 % cream 7-14 area(s) 2 ity of 00:00: (two) [place] 00 times Medical daily. Branch hydrocortis 2-0 Yes [id number] Apply to [facility] 2.5 % 7-14 affected ity of cream 00:00: area(s) 2 [place] (two) Medical times Branch daily. Safe for the face. ketoconazol 2-0 Yes [id number] Apply to [facility] 2 % cream 7-14 area(s) 2 ity of 00:00: (two) [place] 00 times Medical daily. Branch hydrocortis 2-0 Yes [id number] Apply to [facility] 2.5 % 7-14 affected ity of cream 00:00: area(s) 2 [place] 00 (two) Medical times Branch daily. Safe for the face. ketoconazol 2022-0 Yes [id number] Apply to [facility] 2 % cream 7-14 area(s) 2 ity of 00:00: (two) [place] 00 times Medical daily. Branch hydrocortis 2022-0 Yes [id number] Apply to [facility] 2.5 % 7-14 affected ity of cream 00:00: area(s) 2 [place] 00 (two) Medical times Branch daily. Safe for the face. ketoconazol 2022-0 Yes [id number] Apply to [facility] 2 % cream 7-14 area(s) 2 ity of 00:00: (two) [place] 00 times Medical daily. Branch hydrocortis 2021-0 Yes [id number] Apply to [facility] 2.5 % 7-14 affected ity of cream 00:00: area(s) 2 [place] 00 (two) Medical times Branch daily. Safe for the face. ketoconazol 2-0 Yes [id number] Apply to [facility] 2 % cream 7-14 area(s) 2 ity of 00:00: (two) [place] 00 times Medical daily. Branch hydrocortis 2021-0 Yes [id number] Apply to [facility] 2.5 % 7-14 affected ity of cream 00:00: area(s) 2 [place] 00 (two) Medical times Branch daily. Safe for the face. ketoconazol 2021-0 Yes [id number] Apply to [facility] 2 % cream 7-14 area(s) 2 ity of 00:00: (two) [place] 00 times Medical daily. Branch hydrocortis 2021-0 Yes [id number] Apply to [facility] 2.5 % 7-14 affected ity of cream 00:00: area(s) 2 [place] (two) Medical times Branch daily. Safe for the face. ketoconazol 2021-0 Yes [id number] Apply to [facility] 2 % cream 7-14 area(s) 2 ity of 00:00: (two) [place] 00 times Medical daily. Branch hydrocortis 2021-0 Yes [id number] Apply to [facility] 2.5 % 7-14 affected ity of cream 00:00: area(s) 2 [place] 00 (two) Medical times Branch daily. Safe for the face. ketoconazol 2-0 Yes [id number] Apply to [facility] 2 % cream 7-14 area(s) 2 ity of 00:00: (two) [place] 00 times Medical daily. Branch hydrocortis 2-0 Yes [id number] Apply to [facility] 2.5 % 7-14 affected ity of cream 00:00: area(s) 2 [place] 00 (two) Medical times Branch daily. Safe for the face. ketoconazol 2-0 Yes [id number] Apply to [facility] 2 % cream 7-14 area(s) 2 ity of 00:00: (two) [place] 00 times Medical daily. Branch hydrocortis 2-0 Yes [id number] Apply to [facility] 2.5 % 7-14 affected ity of cream 00:00: area(s) 2 [place] (two) Medical times Branch daily. Safe for the face. ketoconazol 2-0 Yes [id number] Apply to [facility] 2 % cream 7-14 area(s) 2 ity of 00:00: (two) [place] 00 times Medical daily. Branch hydrocortis 2022-0 Yes [id number] Apply to [facility] 2.5 % 7-14 affected ity of cream 00:00: area(s) 2 [place] (two) Medical times Branch daily. Safe for the face. ketoconazol 2-0 Yes [id number] Apply to [facility] 2 % cream 7-14 area(s) 2 ity of 00:00: (two) [place] 00 times Medical daily. Branch hydrocortis 2-0 Yes [id number] Apply to [facility] 2.5 % 7-14 affected ity of cream 00:00: area(s) 2 [place] (two) Medical times Branch daily. Safe for the face. ketoconazol 2-0 Yes [id number] Apply to [facility] 2 % cream 7-14 area(s) 2 ity of 00:00: (two) [place] 00 times Medical daily. Branch hydrocortis 2-0 Yes [id number] Apply to [facility] 2.5 % 7-14 affected ity of cream 00:00: area(s) 2 [place] (two) Medical times Branch daily. Safe for the face. ketoconazol 2022-0 Yes [id number] Apply to [facility] 2 % cream 7-14 area(s) 2 ity of 00:00: (two) [place] 00 times Medical daily. Branch hydrocortis 2022-0 Yes [id number] Apply to [facility] 2.5 % 7-14 affected ity of cream 00:00: area(s) 2 [place] (two) Medical times Branch daily. Safe for the face. ketoconazol 2022-0 Yes [id number] Apply to [facility] 2 % cream 7-14 area(s) 2 ity of 00:00: (two) [place] 00 times Medical daily. Branch hydrocortis 2022-0 Yes [id number] Apply to [facility] 2.5 % 7-14 affected ity of cream 00:00: area(s) 2 [place] 00 (two) Medical times Branch daily. Safe for the face. ketoconazol 2021-0 Yes [id number] Apply to [facility] 2 % cream 7-14 area(s) 2 ity of 00:00: (two) [place] 00 times Medical daily. Branch hydrocortis 2021-0 Yes [id number] Apply to [facility] one 2.5 % 7-14 affected ity of cream 00:00: area(s) 2 [place] 00 (two) Medical times Branch daily. Safe for the face. ketoconazol 2021-0 Yes [id number] Apply to [facility] 2 % cream 7-14 area(s) 2 ity of 00:00: (two) [place] 00 times Medical daily. Branch hydrocortis 2021-0 Yes [id number] Apply to [facility] 2.5 % 7-14 affected ity of cream 00:00: area(s) 2 [place] 00 (two) Medical times Branch daily. Safe for the face. ketoconazol 2021-0 Yes [id number] Apply to [facility] 2 % cream 7-14 area(s) 2 ity of 00:00: (two) [place] 00 times Medical daily. Branch hydrocortis 2021-0 Yes [id number] Apply to [facility] 2.5 % 7-14 affected ity of cream 00:00: area(s) 2 [place] 00 (two) Medical times Branch daily. Safe for the face. ketoconazol 2021-0 Yes [id number] Apply to [facility] 2 % cream 7-14 area(s) 2 ity of 00:00: (two) [place] 00 times Medical daily. Branch hydrocortis 2021-0 Yes [id number] Apply to [facility] 2.5 % 7-14 affected ity of cream 00:00: area(s) 2 [place] 00 (two) Medical times Branch daily. Safe for the face. ketoconazol 2-0 Yes [id number] Apply to [facility] 2 % cream 7-14 area(s) 2 ity of 00:00: (two) [place] 00 times Medical daily. Branch hydrocortis 2021-0 Yes [id number] Apply to [facility] 2.5 % 7-14 affected ity of cream 00:00: area(s) 2 [place] 00 (two) Medical times Branch daily. Safe for the face. ketoconazol 2022-0 Yes [id number] Apply to [facility] 2 % cream 7-14 area(s) 2 ity of 00:00: (two) [place] 00 times Medical daily. Branch hydrocortis 2-0 Yes [id number] Apply to [facility] 2.5 % 7-14 affected ity of cream 00:00: area(s) 2 [place] 00 (two) Medical times Branch daily. Safe for the face. ketoconazol 2-0 Yes [id number] Apply to [facility] 2 % cream 7-14 area(s) 2 ity of 00:00: (two) [place] 00 times Medical daily. Branch hydrocortis 2-0 Yes [id number] Apply to [facility] 2.5 % 7-14 affected ity of cream 00:00: area(s) 2 [place] 00 (two) Medical times Branch daily. Safe for the face. ketoconazol 2-0 Yes [id number] Apply to [facility] 2 % cream 7-14 area(s) 2 ity of 00:00: (two) [place] 00 times Medical daily. Branch hydrocortis 2021-0 Yes [id number] Apply to [facility] 2.5 % 7-14 affected ity of cream 00:00: area(s) 2 [place] 00 (two) Medical times Branch daily. Safe for the face. ketoconazol 2-0 Yes [id number] Apply to [facility] 2 % cream 7-14 area(s) 2 ity of 00:00: (two) [place] 00 times Medical daily. Branch hydrocortis 2-0 Yes [id number] Apply to [facility] 2.5 % 7-14 affected ity of cream 00:00: area(s) 2 [place] 00 (two) Medical times Branch daily. Safe for the face. ketoconazol 2022-0 Yes [id number] Apply to [facility] 2 % cream 7-14 area(s) 2 ity of 00:00: (two) [place] 00 times Medical daily. Branch hydrocortis 2022-0 Yes [id number] Apply to [facility] 2.5 % 7-14 affected ity of cream 00:00: area(s) 2 [place] 00 (two) Medical times Branch daily. Safe for the face. ketoconazol 2022-0 Yes [id number] Apply to [facility] 2 % cream 7-14 area(s) 2 ity of 00:00: (two) [place] 00 times Medical daily. Branch hydrocortis 2-0 Yes [id number] Apply to [facility] 2.5 % 7-14 affected ity of cream 00:00: area(s) 2 [place] 00 (two) Medical times Branch daily. Safe for the face. ketoconazol 2022-0 Yes [id number] Apply to [facility] 2 % cream 7-14 area(s) 2 ity of 00:00: (two) [place] 00 times Medical daily. Branch hydrocortis 2022-0 Yes [id number] Apply to [facility] 2.5 % 7-14 affected ity of cream 00:00: area(s) 2 [place] 00 (two) Medical times Branch daily. Safe for the face. ketoconazol 2-0 Yes [id number] Apply to [facility] 2 % cream 7-14 area(s) 2 ity of 00:00: (two) [place] 00 times Medical daily. Branch hydrocortis 2-0 Yes [id number] Apply to [facility] 2.5 % 7-14 affected ity of cream 00:00: area(s) 2 [place] (two) Medical times Branch daily. Safe for the face. ketoconazol 2-0 Yes [id number] Apply to [facility] 2 % cream 7-14 area(s) 2 ity of 00:00: (two) [place] 00 times Medical daily. Branch hydrocortis 2-0 Yes [id number] Apply to [facility] 2.5 % 7-14 affected ity of cream 00:00: area(s) 2 [place] 00 (two) Medical times Branch daily. Safe for the face. ketoconazol 2022-0 Yes [id number] Apply to [facility] 2 % cream 7-14 area(s) 2 ity of 00:00: (two) [place] 00 times Medical daily. Branch hydrocortis 2022-0 Yes [id number] Apply to [facility] 2.5 % 7-14 affected ity of cream 00:00: area(s) 2 [place] 00 (two) Medical times Branch daily. Safe for the face. ketoconazol 2022-0 Yes [id number] Apply to [facility] 2 % cream 7-14 area(s) 2 ity of 00:00: (two) [place] 00 times Medical daily. Branch hydrocortis 2021-0 Yes [id number] Apply to [facility] 2.5 % 7-14 affected ity of cream 00:00: area(s) 2 [place] 00 (two) Medical times Branch daily. Safe for the face. ketoconazol 2021-0 Yes [id number] Apply to [facility] 2 % cream 7-14 area(s) 2 ity of 00:00: (two) [place] 00 times Medical daily. Branch hydrocortis 2021-0 Yes [id number] Apply to [facility] 2.5 % 7-14 affected ity of cream 00:00: area(s) 2 [place] 00 (two) Medical times Branch daily. Safe for the face. ketoconazol 2021-0 Yes [id number] Apply to [facility] 2 % cream 7-14 area(s) 2 ity of 00:00: (two) [place] 00 times Medical daily. Branch hydrocortis 2021-0 Yes [id number] Apply to [facility] 2.5 % 7-14 affected ity of cream 00:00: area(s) 2 [place] (two) Medical times [place] daily. Safe for the face. ketoconazol 2021-0 Yes [id number] Apply to [facility] 2 % cream 7-14 area(s) 2 ity of 00:00: (two) [place] 00 times Medical daily. Branch hydrocortis 2021-0 Yes [id number] Apply to [facility] 2.5 % 7-14 affected ity of cream 00:00: area(s) 2 [place] 00 (two) Medical times Branch daily. Safe for the face. ketoconazol 2-0 Yes [id number] Apply to [facility] 2 % cream 7-14 area(s) 2 ity of 00:00: (two) [place] 00 times Medical daily. Branch hydrocortis 2-0 Yes [id number] Apply to [facility] 2.5 % 7-14 affected ity of cream 00:00: area(s) 2 [place] 00 (two) Medical times Branch daily. Safe for the face. ketoconazol 2-0 Yes [id number] Apply to [facility] 2 % cream 7-14 area(s) 2 ity of 00:00: (two) [place] 00 times Medical daily. Branch hydrocortis 2022-0 Yes [id number] Apply to [facility] one 2.5 % 7-14 affected ity of cream 00:00: area(s) 2 [place] 00 (two) Medical times Branch daily. Safe for the face. ketoconazol 2022-0 Yes [id number] Apply to [facility] 2 % cream 7-14 area(s) 2 ity of 00:00: (two) [place] 00 times Medical daily. Branch hydrocortis 2022-0 Yes [id number] Apply to [facility] 2.5 % 7-14 affected ity of cream 00:00: area(s) 2 [place] 00 (two) Medical times Branch daily. Safe for the face. ketoconazol 2022-0 Yes [id number] Apply to [facility] 2 % cream 7-14 area(s) 2 ity of 00:00: (two) [place] 00 times Medical daily. Branch hydrocortis 2022-0 Yes [id number] Apply to [facility] 2.5 % 7-14 affected ity of cream 00:00: area(s) 2 [place] 00 (two) Medical times Branch daily. Safe for the face. acetaminoph 2022-0 Yes 1{tbl} Take 1 Un claudia en-codeine 6-14 tablet by ity of 300-30 mg 10:16: mouth [place] tablet 20 every 6 Medical (six) Branch hours as needed. acetaminoph 2022-0 Yes 1{tbl} Take 1 Un cl[facility]ia en-codeine 6-14 tablet by ity of 300-30 mg 10:16: mouth [place] tablet 20 every 6 Medical (six) Branch hours as needed. acetaminoph 2022-0 Yes 1{tbl} Take 1 Un [facility] en-codeine 6-14 tablet by ity of 300-30 mg 10:16: mouth [place] tablet 20 every 6 Medical (six) Branch hours as needed. acetaminoph 2022-0 Yes 1{tbl} Take 1 Un [facility]ia en-codeine 6-14 tablet by ity of 300-30 mg 10:16: mouth [place] tablet 20 every 6 Medical (six) Branch hours as needed. acetaminoph 2022-0 Yes 1{tbl} Take 1 Un cl[facility]ia en-codeine 6-14 tablet by ity of 300-30 mg 10:16: mouth [place] tablet 20 every 6 Medical (six) Branch hours as needed. pregabalin 2022-0 Yes 75mg Take 75 mg [facility] 75 mg 6-14 by mouth 2 ity of capsule 10:14: (two) [place] 32 times Medical daily. Branch FLUTICASONE 2022-0 Yes 50ug Use 50 mcg [facility] PROPIONATE 6-14 in each ity of NASAL 10:14: nostril [place] 32 once daily Medical as needed Branch for Other (allergies ). ALBUTEROL 2022-0 Yes 8.5mg Inhale 8.5 [facility] INHALE 6-14 mg every 4 ity of 10:14: (four) [place] 32 hours as Medical needed Branch (wheezing) . pregabalin 2022-0 Yes 75mg Take 75 mg [facility] 75 mg 6-14 by mouth 2 ity of capsule 10:14: (two) [place] 32 times Medical daily. Branch FLUTICASONE 2022-0 Yes 50ug Use 50 mcg [facility] PROPIONATE 6-14 in each ity of NASAL 10:14: nostril [place] 32 once daily Medical as needed Branch for Other (allergies ). ALBUTEROL 2022-0 Yes 8.5mg Inhale 8.5 [facility] INHALE 6-14 mg every 4 ity of 10:14: (four) [place] 32 hours as Medical needed Branch (wheezing) . pregabalin 2022-0 Yes 75mg Take 75 mg [facility] 75 mg 6-14 by mouth 2 ity of capsule 10:14: (two) [place] 32 times Medical daily. Branch FLUTICASONE 2022-0 Yes 50ug Use 50 mcg [facility] PROPIONATE 6-14 in each ity of NASAL 10:14: nostril [place] 32 once daily Medical as needed Branch for Other (allergies ). ALBUTEROL 2022-0 Yes 8.5mg Inhale 8.5 [facility] INHALE 6-14 mg every 4 ity of 10:14: (four) [place] 32 hours as Medical needed Branch (wheezing) . pregabalin 2022-0 Yes 75mg Take 75 mg [facility] 75 mg 6-14 by mouth 2 ity of capsule 10:14: (two) [place] 32 times Medical daily. Branch FLUTICASONE 2022-0 Yes 50ug Use 50 mcg [facility] PROPIONATE 6-14 in each ity of NASAL 10:14: nostril [place] 32 once daily Medical as needed Branch for Other (allergies ). ALBUTEROL 0 Yes 8.5mg Inhale 8.5 [facility] INHALE 6-14 mg every 4 ity of 10:14: (four) [place] 32 hours as Medical needed Branch (wheezing) . pregabalin 0 Yes 75mg Take 75 mg [facility] 75 mg 6-14 by mouth 2 ity of capsule 10:14: (two) [place] 32 times Medical daily. Branch FLUTICASONE 0 Yes 50ug Use 50 mcg [facility] PROPIONATE 6-14 in each ity of NASAL 10:14: nostril [place] 32 once daily Medical as needed Branch for Other (allergies ). ALBUTEROL 0 Yes 8.5mg Inhale 8.5 [facility] INHALE 6-14 mg every 4 ity of 10:14: (four) [place] 32 hours as Medical needed Branch (wheezing) . budesonide- 0 Yes 2{puff} Inhale 2 [facility] formoteroL 6-14 Puffs. ity of 160-4.5 09:49: [place] mcg/actuati 26 Medical on inhaler Branch budesonide- 0 Yes 2{puff} Inhale 2 [facility] formoteroL 6-14 Puffs. ity of 160-4.5 09:49: [place] mcg/actuati 26 Medical on inhaler Branch budesonide- 0 Yes 2{puff} Inhale 2 [facility] formoteroL 6-14 Puffs. ity of 160-4.5 09:49: [place] mcg/actuati 26 Medical on inhaler Branch budesonide- 0 Yes 2{puff} Inhale 2 [facility] formoteroL 6-14 Puffs. ity of 160-4.5 09:49: [place] mcg/actuati 26 Medical on inhaler Branch budesonide- 0 Yes 2{puff} Inhale 2 [facility] formoteroL 6-14 Puffs. ity of 160-4.5 09:49: [place] mcg/actuati 26 Medical on inhaler Branch budesonide- 2021-0 Yes 2{puff} Inhale 2 [facility] formoteroL 6-14 Puffs. ity of 160-4.5 09:49: [place] mcg/actuati 26 Medical on inhaler Branch budesonide- Yes 2{puff} Inhale 2 [facility] formoteroL 6-14 Puffs. ity of 160-4.5 09:49: [place] mcg/actuati 26 Medical on inhaler Branch budesonide- Yes 2{puff} Inhale 2 [facility] formoteroL 6-14 Puffs. ity of 160-4.5 09:49: [place] mcg/actuati 26 Medical on inhaler Branch ADVAIR Yes INHALE 1 [facility] DISKUS 6-09 DOSE BY ity of 500-50 00:00: MOUTH [place] mcg/dose 00 TWICE Medical inhalation DAILY Branch disk ADVAIR Yes INHALE 1 [facility] DISKUS 6-09 DOSE BY ity of 500-50 00:00: MOUTH [place] mcg/dose 00 TWICE Medical inhalation DAILY Branch disk ADVAIR Yes INHALE 1 [facility] DISKUS 6-09 DOSE BY ity of 500-50 00:00: MOUTH [place] mcg/dose 00 TWICE Medical inhalation DAILY Branch disk ADVAIR Yes INHALE 1 [facility] DISKUS 6-09 DOSE BY ity of 500-50 00:00: MOUTH [place] mcg/dose 00 TWICE Medical inhalation DAILY Branch disk ADVAIR Yes INHALE 1 [facility] DISKUS 6-09 DOSE BY ity of 500-50 00:00: MOUTH [place] mcg/dose 00 TWICE Medical inhalation DAILY Branch disk ADVAIR Yes INHALE 1 [facility] DISKUS 6-09 DOSE BY ity of 500-50 00:00: MOUTH [place] mcg/dose 00 TWICE Medical inhalation DAILY Branch disk ADVAIR 0 Yes INHALE 1 [facility] DISKUS 6-09 DOSE BY ity of 500-50 00:00: MOUTH [place] mcg/dose 00 TWICE Medical inhalation DAILY Branch disk ADVAIR 0 Yes INHALE 1 [facility] DISKUS 6-09 DOSE BY ity of 500-50 00:00: MOUTH [place] mcg/dose 00 TWICE Medical inhalation DAILY Branch disk ADVAIR 0 Yes INHALE 1 [facility] DISKUS 6-09 DOSE BY ity of 500-50 00:00: MOUTH [place] mcg/dose 00 TWICE Medical inhalation DAILY Branch disk ADVAIR 0 Yes INHALE 1 [facility] DISKUS 6-09 DOSE BY ity of 500-50 00:00: MOUTH [place] mcg/dose 00 TWICE Medical inhalation DAILY Branch disk ADVAIR Yes INHALE 1 [facility] DISKUS 6-09 DOSE BY ity of 500-50 00:00: MOUTH [place] mcg/dose 00 TWICE Medical inhalation DAILY Branch disk ADVAIR Yes INHALE 1 [facility] DISKUS 6-09 DOSE BY ity of 500-50 00:00: MOUTH [place] mcg/dose 00 TWICE Medical inhalation DAILY Branch disk ADVAIR Yes INHALE 1 [facility] DISKUS 6-09 DOSE BY ity of 500-50 00:00: MOUTH [place] mcg/dose 00 TWICE Medical inhalation DAILY Branch disk ADVAIR Yes INHALE 1 [facility] DISKUS 6-09 DOSE BY ity of 500-50 00:00: MOUTH [place] mcg/dose 00 TWICE Medical inhalation DAILY Branch disk ADVAIR Yes INHALE 1 [facility] DISKUS 6-09 DOSE BY ity of 500-50 00:00: MOUTH [place] mcg/dose 00 TWICE Medical inhalation DAILY Branch disk ADVAIR Yes INHALE 1 [facility] DISKUS 6-09 DOSE BY ity of 500-50 00:00: MOUTH [place] mcg/dose 00 TWICE Medical inhalation DAILY Branch disk ADVAIR Yes INHALE 1 [facility] DISKUS 6-09 DOSE BY ity of 500-50 00:00: MOUTH [place] mcg/dose 00 TWICE Medical inhalation DAILY Branch disk ADVAIR Yes INHALE 1 [facility] DISKUS 6-09 DOSE BY ity of 500-50 00:00: MOUTH [place] mcg/dose 00 TWICE Medical inhalation DAILY Branch disk ADVAIR Yes INHALE 1 [facility] DISKUS 6-09 DOSE BY ity of 500-50 00:00: MOUTH [place] mcg/dose 00 TWICE Medical inhalation DAILY Branch disk ADVAIR Yes INHALE 1 [facility] DISKUS 6-09 DOSE BY ity of 500-50 00:00: MOUTH [place] mcg/dose 00 TWICE Medical inhalation DAILY Branch disk ADVAIR 0 Yes INHALE 1 [facility] DISKUS 6-09 DOSE BY ity of 500-50 00:00: MOUTH [place] mcg/dose 00 TWICE Medical inhalation DAILY Branch disk ADVAIR 0 Yes INHALE 1 [facility] DISKUS 6-09 DOSE BY ity of 500-50 00:00: MOUTH [place] mcg/dose 00 TWICE Medical inhalation DAILY Branch disk ADVAIR 0 Yes INHALE 1 [facility] DISKUS 6-09 DOSE BY ity of 500-50 00:00: MOUTH [place] mcg/dose 00 TWICE Medical inhalation DAILY Branch disk ADVAIR Yes INHALE 1 [facility] DISKUS 6-09 DOSE BY ity of 500-50 00:00: MOUTH [place] mcg/dose 00 TWICE Medical inhalation DAILY Branch disk ADVAIR 0 Yes INHALE 1 [facility] DISKUS 6-09 DOSE BY ity of 500-50 00:00: MOUTH [place] mcg/dose 00 TWICE Medical inhalation DAILY Branch disk ADVAIR Yes INHALE 1 [facility] DISKUS 6-09 DOSE BY ity of 500-50 00:00: MOUTH [place] mcg/dose 00 TWICE Medical inhalation DAILY Branch disk ADVAIR Yes INHALE 1 [facility] DISKUS 6-09 DOSE BY ity of 500-50 00:00: MOUTH [place] mcg/dose 00 TWICE Medical inhalation DAILY Branch disk ADVAIR Yes INHALE 1 [facility] DISKUS 6-09 DOSE BY ity of 500-50 00:00: MOUTH [place] mcg/dose 00 TWICE Medical inhalation DAILY Branch disk ADVAIR Yes INHALE 1 [facility] DISKUS 6-09 DOSE BY ity of 500-50 00:00: MOUTH [place] mcg/dose 00 TWICE Medical inhalation DAILY Branch disk ADVAIR Yes INHALE 1 [facility] DISKUS 6-09 DOSE BY ity of 500-50 00:00: MOUTH [place] mcg/dose 00 TWICE Medical inhalation DAILY Branch disk ADVAIR Yes INHALE 1 [facility] DISKUS 6-09 DOSE BY ity of 500-50 00:00: MOUTH [place] mcg/dose 00 TWICE Medical inhalation DAILY Branch disk ADVAIR 0 Yes INHALE 1 [facility] DISKUS 6-09 DOSE BY ity of 500-50 00:00: MOUTH [place] mcg/dose 00 TWICE Medical inhalation DAILY Branch disk ADVAIR 0 Yes INHALE 1 [facility] DISKUS 6-09 DOSE BY ity of 500-50 00:00: MOUTH [place] mcg/dose 00 TWICE Medical inhalation DAILY Branch disk ADVAIR 0 Yes INHALE 1 [facility] DISKUS 6-09 DOSE BY ity of 500-50 00:00: MOUTH [place] mcg/dose 00 TWICE Medical inhalation DAILY Branch disk ADVAIR 0 Yes INHALE 1 [facility] DISKUS 6-09 DOSE BY ity of 500-50 00:00: MOUTH [place] mcg/dose 00 TWICE Medical inhalation DAILY Branch disk ADVAIR Yes INHALE 1 [facility] DISKUS 6-09 DOSE BY ity of 500-50 00:00: MOUTH [place] mcg/dose 00 TWICE Medical inhalation DAILY Branch disk ADVAIR Yes INHALE 1 [facility] DISKUS 6-09 DOSE BY ity of 500-50 00:00: MOUTH [place] mcg/dose 00 TWICE Medical inhalation DAILY Branch disk ADVAIR Yes INHALE 1 [facility] DISKUS 6-09 DOSE BY ity of 500-50 00:00: MOUTH [place] mcg/dose 00 TWICE Medical inhalation DAILY Branch disk ADVAIR Yes INHALE 1 [facility] DISKUS 6-09 DOSE BY ity of 500-50 00:00: MOUTH [place] mcg/dose 00 TWICE Medical inhalation DAILY Branch disk ADVAIR Yes INHALE 1 [facility] DISKUS 6-09 DOSE BY ity of 500-50 00:00: MOUTH [place] mcg/dose 00 TWICE Medical inhalation DAILY Branch disk ADVAIR Yes INHALE 1 [facility] DISKUS 6-09 DOSE BY ity of 500-50 00:00: MOUTH [place] mcg/dose 00 TWICE Medical inhalation DAILY Branch disk ADVAIR Yes INHALE 1 [facility] DISKUS 6-09 DOSE BY ity of 500-50 00:00: MOUTH [place] mcg/dose 00 TWICE Medical inhalation DAILY Branch disk ADVAIR Yes INHALE 1 [facility] DISKUS 6-09 DOSE BY ity of 500-50 00:00: MOUTH [place] mcg/dose 00 TWICE Medical inhalation DAILY Branch disk ADVAIR Yes INHALE 1 [facility] DISKUS 6-09 DOSE BY ity of 500-50 00:00: MOUTH [place] mcg/dose 00 TWICE Medical inhalation DAILY Branch disk ADVAIR Yes INHALE 1 [facility] DISKUS 6-09 DOSE BY ity of 500-50 00:00: MOUTH [place] mcg/dose 00 TWICE Medical inhalation DAILY Branch disk ADVAIR 0 Yes INHALE 1 [facility] DISKUS 6-09 DOSE BY ity of 500-50 00:00: MOUTH [place] mcg/dose 00 TWICE Medical inhalation DAILY Branch disk ADVAIR 0 Yes INHALE 1 [facility] DISKUS 6-09 DOSE BY ity of 500-50 00:00: MOUTH [place] mcg/dose 00 TWICE Medical inhalation DAILY Branch disk ADVAIR 0 Yes INHALE 1 [facility] DISKUS 6-09 DOSE BY ity of 500-50 00:00: MOUTH [place] mcg/dose 00 TWICE Medical inhalation DAILY Branch disk ADVAIR Yes INHALE 1 [facility] DISKUS 6-09 DOSE BY ity of 500-50 00:00: MOUTH [place] mcg/dose 00 TWICE Medical inhalation DAILY Branch disk ADVAIR 0 Yes INHALE 1 [facility] DISKUS 6-09 DOSE BY ity of 500-50 00:00: MOUTH [place] mcg/dose 00 TWICE Medical inhalation DAILY Branch disk ADVAIR Yes INHALE 1 [facility] DISKUS 6-09 DOSE BY ity of 500-50 00:00: MOUTH [place] mcg/dose 00 TWICE Medical inhalation DAILY Branch disk ADVAIR Yes INHALE 1 [facility] DISKUS 6-09 DOSE BY ity of 500-50 00:00: MOUTH [place] mcg/dose 00 TWICE Medical inhalation DAILY Branch disk ADVAIR Yes INHALE 1 [facility] DISKUS 6-09 DOSE BY ity of 500-50 00:00: MOUTH [place] mcg/dose 00 TWICE Medical inhalation DAILY Branch disk ADVAIR Yes INHALE 1 [facility] DISKUS 6-09 DOSE BY ity of 500-50 00:00: MOUTH [place] mcg/dose 00 TWICE Medical inhalation DAILY Branch disk ADVAIR Yes INHALE 1 [facility] DISKUS 6-09 DOSE BY ity of 500-50 00:00: MOUTH [place] mcg/dose 00 TWICE Medical inhalation DAILY Branch disk ADVAIR Yes INHALE 1 [facility] DISKUS 6-09 DOSE BY ity of 500-50 00:00: MOUTH [place] mcg/dose 00 TWICE Medical inhalation DAILY Branch disk ADVAIR 0 Yes INHALE 1 [facility] DISKUS 6-09 DOSE BY ity of 500-50 00:00: MOUTH [place] mcg/dose 00 TWICE Medical inhalation DAILY Branch disk ADVAIR 0 Yes INHALE 1 [facility] DISKUS 6-09 DOSE BY ity of 500-50 00:00: MOUTH [place] mcg/dose 00 TWICE Medical inhalation DAILY Branch disk ADVAIR 0 Yes INHALE 1 [facility] DISKUS 6-09 DOSE BY ity of 500-50 00:00: MOUTH [place] mcg/dose 00 TWICE Medical inhalation DAILY Branch disk ADVAIR 0 Yes INHALE 1 [facility] DISKUS 6-09 DOSE BY ity of 500-50 00:00: MOUTH [place] mcg/dose 00 TWICE Medical inhalation DAILY Branch disk ADVAIR Yes INHALE 1 [facility] DISKUS 6-09 DOSE BY ity of 500-50 00:00: MOUTH [place] mcg/dose 00 TWICE Medical inhalation DAILY Branch disk ADVAIR Yes INHALE 1 [facility] DISKUS 6-09 DOSE BY ity of 500-50 00:00: MOUTH [place] mcg/dose 00 TWICE Medical inhalation DAILY Branch disk ADVAIR Yes INHALE 1 [facility] DISKUS 6-09 DOSE BY ity of 500-50 00:00: MOUTH [place] mcg/dose 00 TWICE Medical inhalation DAILY Branch disk ADVAIR Yes INHALE 1 [facility] DISKUS 6-09 DOSE BY ity of 500-50 00:00: MOUTH [place] mcg/dose 00 TWICE Medical inhalation DAILY Branch disk ADVAIR Yes INHALE 1 [facility] DISKUS 6-09 DOSE BY ity of 500-50 00:00: MOUTH [place] mcg/dose 00 TWICE Medical inhalation DAILY Branch disk ADVAIR Yes 1{puff} Take 1 [facility] DISKUS 6-09 Puff in ity of 500-50 00:00: the [place] mcg/dose 00 morning Medical inhalation and 1 Puff Bra nch disk in the evening. Am and HS ADVAIR Yes 1{puff} Take 1 [facility] DISKUS 6-09 Puff in ity of 500-50 00:00: the [place] mcg/dose 00 morning Medical inhalation and 1 Puff Bra n[facility] disk in the evening. Am and HS ADVAIR Yes 1{puff} Take 1 [facility] DISKUS 6-09 Puff in ity of 500-50 00:00: the [place] mcg/dose 00 morning Medical inhalation and 1 Puff Bra n[facility] disk in the evening. Am and HS ADVAIR Yes 1{puff} Take 1 [facility] DISKUS 6-09 Puff in ity of 500-50 00:00: the [place] mcg/dose 00 morning Medical inhalation and 1 Puff Bra n[facility] disk in the evening. Am and HS ADVAIR 0 Yes 1{puff} Take 1 [facility] DISKUS 6-09 Puff in ity of 500-50 00:00: the [place] mcg/dose 00 morning Medical inhalation and 1 Puff Bra n[facility] disk in the evening. Am and HS ADVAIR 2022-0 Yes 1{puff} Take 1 [facility] DISKUS 6-09 Puff in ity of 500-50 00:00: the [place] mcg/dose 00 morning Medical inhalation and 1 Puff Bra n[facility] disk in the evening. Am and HS ADVAIR 0 Yes 1{puff} Take 1 [facility] DISKUS 6-09 Puff in ity of 500-50 00:00: the [place] mcg/dose 00 morning Medical inhalation and 1 Puff Bra n[facility] disk in the evening. Am and HS ADVAIR 0 Yes 1{puff} Take 1 [facility] DISKUS 6-09 Puff in ity of 500-50 00:00: the [place] mcg/dose 00 morning Medical inhalation and 1 Puff Bra n[facility] disk in the evening. Am and HS ADVAIR 0 Yes 1{puff} Take 1 [facility] DISKUS 6-09 Puff in ity of 500-50 00:00: the [place] mcg/dose 00 morning Medical inhalation and 1 Puff Bra n[facility] disk in the evening. Am and HS ADVAIR 0 Yes 1{puff} Take 1 [facility] DISKUS 6-09 Puff in ity of 500-50 00:00: the [place] mcg/dose 00 morning Medical inhalation and 1 Puff Bra n[facility] disk in the evening. Am and HS ADVAIR 0 Yes 1{puff} Take 1 [facility] DISKUS 6-09 Puff in ity of 500-50 00:00: the [place] mcg/dose 00 morning Medical inhalation and 1 Puff Bra n[facility] disk in the evening. Am and HS ADVAIR 0 Yes 1{puff} Take 1 [facility] DISKUS 6-09 Puff in ity of 500-50 00:00: the [place] mcg/dose 00 morning Medical inhalation and 1 Puff Bra n[facility] disk in the evening. Am and HS ADVAIR 0 Yes 1{puff} Take 1 [facility] DISKUS 6-09 Puff in ity of 500-50 00:00: the [place] mcg/dose 00 morning Medical inhalation and 1 Puff Bra n[facility] disk in the evening. Am and HS ADVAIR 2021-0 Yes 1{puff} Take 1 [facility] DISKUS 6-09 Puff in ity of 500-50 00:00: the [place] mcg/dose 00 morning Medical inhalation and 1 Puff Bra n[facility] disk in the evening. Am and HS ADVAIR 0 Yes 1{puff} Take 1 [facility] DISKUS 6-09 Puff in ity of 500-50 00:00: the [place] mcg/dose 00 morning Medical inhalation and 1 Puff Bra n[facility] disk in the evening. Am and HS ADVAIR 0 Yes 1{puff} Take 1 [facility] DISKUS 6-09 Puff in ity of 500-50 00:00: the [place] mcg/dose 00 morning Medical inhalation and 1 Puff Bra n[facility] disk in the evening. Am and HS ADVAIR 0 Yes 1{puff} Take 1 [facility] DISKUS 6-09 Puff in ity of 500-50 00:00: the [place] mcg/dose 00 morning Medical inhalation and 1 Puff Bra n[facility] disk in the evening. Am and HS ADVAIR 0 Yes 1{puff} Take 1 [facility] DISKUS 6-09 Puff in ity of 500-50 00:00: the [place] mcg/dose 00 morning Medical inhalation and 1 Puff Bra n[facility] disk in the evening. Am and HS ADVAIR 0 Yes 1{puff} Take 1 [facility] DISKUS 6-09 Puff in ity of 500-50 00:00: the [place] mcg/dose 00 morning Medical inhalation and 1 Puff Bra n[facility] disk in the evening. Am and HS ADVAIR Yes 1{puff} Take 1 [facility] DISKUS 6-09 Puff in ity of 500-50 00:00: the [place] mcg/dose 00 morning Medical inhalation and 1 Puff Bra nch disk in the evening. Am and HS ADVAIR 0 Yes 1{puff} Take 1 [facility] DISKUS 6-09 Puff in ity of 500-50 00:00: the [place] mcg/dose 00 morning Medical inhalation and 1 Puff Bra nch disk in the evening. Am and HS ADVAIR 0 Yes 1{puff} Take 1 [facility] DISKUS 6-09 Puff in ity of 500-50 00:00: the [place] mcg/dose 00 morning Medical inhalation and 1 Puff Bra nch disk in the evening. Am and HS ADVAIR Yes 1{puff} Take 1 [facility] DISKUS 6-09 Puff in ity of 500-50 00:00: the [place] mcg/dose 00 morning Medical inhalation and 1 Puff Bra nch disk in the evening. Am and HS ADVAIR 0 Yes 1{puff} Take 1 [facility] DISKUS 6-09 Puff in ity of 500-50 00:00: the [place] mcg/dose 00 morning Medical inhalation and 1 Puff Bra nch disk in the evening. Am and HS ADVAIR 0 Yes 1{puff} Take 1 [facility] DISKUS 6-09 Puff in ity of 500-50 00:00: the [place] mcg/dose 00 morning Medical inhalation and 1 Puff Bra nch disk in the evening. Am and HS ADVAIR 0 Yes 1{puff} Take 1 [facility] DISKUS 6-09 Puff in ity of 500-50 00:00: the [place] mcg/dose 00 morning Medical inhalation and 1 Puff Bra n[facility] disk in the evening. Am and HS ADVAIR Yes 1{puff} Take 1 [facility] DISKUS 6-09 Puff in ity of 500-50 00:00: the [place] mcg/dose 00 morning Medical inhalation and 1 Puff Bra n[facility] disk in the evening. Am and HS ADVAIR Yes INHALE 1 [facility] DISKUS 6-09 DOSE BY ity of 500-50 00:00: MOUTH [place] mcg/dose 00 TWICE Medical inhalation DAILY Branch disk ADVAIR Yes INHALE 1 [facility] DISKUS 6-09 DOSE BY ity of 500-50 00:00: MOUTH [place] mcg/dose 00 TWICE Medical inhalation DAILY Branch disk ADVAIR 0 Yes INHALE 1 [facility] DISKUS 6-09 DOSE BY ity of 500-50 00:00: MOUTH [place] mcg/dose 00 TWICE Medical inhalation DAILY Branch disk ADVAIR 0 Yes INHALE 1 [facility] DISKUS 6-09 DOSE BY ity of 500-50 00:00: MOUTH [place] mcg/dose 00 TWICE Medical inhalation DAILY Branch disk ADVAIR Yes INHALE 1 [facility] DISKUS 6-09 DOSE BY ity of 500-50 00:00: MOUTH [place] mcg/dose 00 TWICE Medical inhalation DAILY Branch disk ADVAIR 0 Yes INHALE 1 [facility] DISKUS 6-09 DOSE BY ity of 500-50 00:00: MOUTH [place] mcg/dose 00 TWICE Medical inhalation DAILY Branch disk ADVAIR 0 Yes INHALE 1 [facility] DISKUS 6-09 DOSE BY ity of 500-50 00:00: MOUTH [place] mcg/dose 00 TWICE Medical inhalation DAILY Branch disk ADVAIR 0 Yes INHALE 1 [facility] DISKUS 6-09 DOSE BY ity of 500-50 00:00: MOUTH [place] mcg/dose 00 TWICE Medical inhalation DAILY Branch disk ADVAIR 0 Yes INHALE 1 [facility] DISKUS 6-09 DOSE BY ity of 500-50 00:00: MOUTH [place] mcg/dose 00 TWICE Medical inhalation DAILY Branch disk ADVAIR 0 Yes INHALE 1 [facility] DISKUS 6-09 DOSE BY ity of 500-50 00:00: MOUTH [place] mcg/dose 00 TWICE Medical inhalation DAILY Branch disk ADVAIR 0 Yes INHALE 1 [facility] DISKUS 6-09 DOSE BY ity of 500-50 00:00: MOUTH [place] mcg/dose 00 TWICE Medical inhalation DAILY Branch disk rizatriptan Yes DISSOLVE 1 [facility] 10 mg 6-02 TABLET IN ity of disintegrat 00:00: MOUTH ONCE [place] ing tablet 00 DAILY Medic al NEEDED FOR Branch MIGRAINES rizatriptan 0 Yes DISSOLVE 1 [facility] 10 mg 6-02 TABLET IN ity of disintegrat 00:00: MOUTH ONCE [place] ing tablet 00 DAILY Medic al NEEDED FOR Branch MIGRAINES rizatriptan 0 Yes DISSOLVE 1 [facility] 10 mg 6-02 TABLET IN ity of disintegrat 00:00: MOUTH ONCE [place] ing tablet 00 DAILY Medic al NEEDED FOR Branch MIGRAINES rizatriptan 0 Yes DISSOLVE 1 [facility] 10 mg 6-02 TABLET IN ity of disintegrat 00:00: MOUTH ONCE [place] ing tablet 00 DAILY Medic al NEEDED FOR Branch MIGRAINES rizatriptan 0 Yes DISSOLVE 1 [facility] 10 mg 6-02 TABLET IN ity of disintegrat 00:00: MOUTH ONCE [place] ing tablet 00 DAILY Medic al NEEDED FOR Branch MIGRAINES rizatriptan 0 Yes DISSOLVE 1 [facility] 10 mg 6-02 TABLET IN ity of disintegrat 00:00: MOUTH ONCE [place] ing tablet 00 DAILY Medic al NEEDED FOR Branch MIGRAINES rizatriptan 2021-0 Yes DISSOLVE 1 [facility] 10 mg 6-02 TABLET IN ity of disintegrat 00:00: MOUTH ONCE [place] ing tablet 00 DAILY Medic al NEEDED FOR Branch MIGRAINES rizatriptan 2021-0 Yes DISSOLVE 1 [facility] 10 mg 6-02 TABLET IN ity of disintegrat 00:00: MOUTH ONCE [place] ing tablet 00 DAILY Medic al NEEDED FOR Branch MIGRAINES rizatriptan 2021-0 Yes DISSOLVE 1 [facility] 10 mg 6-02 TABLET IN ity of disintegrat 00:00: MOUTH ONCE [place] ing tablet 00 DAILY Medic al NEEDED FOR Branch MIGRAINES rizatriptan 2021-0 Yes DISSOLVE 1 [facility] 10 mg 6-02 TABLET IN ity of disintegrat 00:00: MOUTH ONCE [place] ing tablet 00 DAILY Medic al NEEDED FOR Branch MIGRAINES rizatriptan 2021-0 Yes DISSOLVE 1 [facility] 10 mg 6-02 TABLET IN ity of disintegrat 00:00: MOUTH ONCE [place] ing tablet 00 DAILY Medic al NEEDED FOR Branch MIGRAINES rizatriptan 2021-0 Yes DISSOLVE 1 [facility] 10 mg 6-02 TABLET IN ity of disintegrat 00:00: MOUTH ONCE [place] ing tablet 00 DAILY Medic al NEEDED FOR Branch MIGRAINES rizatriptan 2021-0 Yes DISSOLVE 1 [facility] 10 mg 6-02 TABLET IN ity of disintegrat 00:00: MOUTH ONCE [place] ing tablet 00 DAILY Medic al NEEDED FOR Branch MIGRAINES rizatriptan 2021-0 Yes DISSOLVE 1 [facility] 10 mg 6-02 TABLET IN ity of disintegrat 00:00: MOUTH ONCE [place] ing tablet 00 DAILY Medic al NEEDED FOR Branch MIGRAINES rizatriptan 2021-0 Yes DISSOLVE 1 [facility] 10 mg 6-02 TABLET IN ity of disintegrat 00:00: MOUTH ONCE [place] ing tablet 00 DAILY Medic al NEEDED FOR Branch MIGRAINES rizatriptan 2021-0 Yes DISSOLVE 1 [facility] 10 mg 6-02 TABLET IN ity of disintegrat 00:00: MOUTH ONCE [place] ing tablet 00 DAILY Medic al NEEDED FOR Branch MIGRAINES rizatriptan 2021-0 Yes DISSOLVE 1 [facility] 10 mg 6-02 TABLET IN ity of disintegrat 00:00: MOUTH ONCE [place] ing tablet 00 DAILY Medic al NEEDED FOR Branch MIGRAINES rizatriptan 2021-0 Yes DISSOLVE 1 [facility] 10 mg 6-02 TABLET IN ity of disintegrat 00:00: MOUTH ONCE [place] ing tablet 00 DAILY Medic al NEEDED FOR Branch MIGRAINES rizatriptan 2021-0 Yes DISSOLVE 1 [facility] 10 mg 6-02 TABLET IN ity of disintegrat 00:00: MOUTH ONCE [place] ing tablet 00 DAILY Medic al NEEDED FOR Branch MIGRAINES rizatriptan 2021-0 Yes DISSOLVE 1 [facility] 10 mg 6-02 TABLET IN ity of disintegrat 00:00: MOUTH ONCE [place] ing tablet 00 DAILY Medic al NEEDED FOR Branch MIGRAINES rizatriptan 2021-0 Yes DISSOLVE 1 [facility] 10 mg 6-02 TABLET IN ity of disintegrat 00:00: MOUTH ONCE [place] ing tablet 00 DAILY Medic al NEEDED FOR Branch MIGRAINES rizatriptan 2021-0 Yes DISSOLVE 1 [facility] 10 mg 6-02 TABLET IN ity of disintegrat 00:00: MOUTH ONCE [place] ing tablet 00 DAILY Medic al NEEDED FOR Branch MIGRAINES rizatriptan 2021-0 Yes DISSOLVE 1 [facility] 10 mg 6-02 TABLET IN ity of disintegrat 00:00: MOUTH ONCE [place] ing tablet 00 DAILY Medic al NEEDED FOR Branch MIGRAINES rizatriptan 2021-0 Yes DISSOLVE 1 [facility] 10 mg 6-02 TABLET IN ity of disintegrat 00:00: MOUTH ONCE [place] ing tablet 00 DAILY Medic al NEEDED FOR Branch MIGRAINES rizatriptan 2021-0 Yes DISSOLVE 1 [facility] 10 mg 6-02 TABLET IN ity of disintegrat 00:00: MOUTH ONCE [place] ing tablet 00 DAILY Medic al NEEDED FOR Branch MIGRAINES rizatriptan 2021-0 Yes DISSOLVE 1 [facility] 10 mg 6-02 TABLET IN ity of disintegrat 00:00: MOUTH ONCE [place] ing tablet 00 DAILY Medic al NEEDED FOR Branch MIGRAINES rizatriptan 2021-0 Yes DISSOLVE 1 [facility] 10 mg 6-02 TABLET IN ity of disintegrat 00:00: MOUTH ONCE [place] ing tablet 00 DAILY Medic al NEEDED FOR Branch MIGRAINES rizatriptan 2021-0 Yes DISSOLVE 1 [facility] 10 mg 6-02 TABLET IN ity of disintegrat 00:00: MOUTH ONCE [place] ing tablet 00 DAILY Medic al NEEDED FOR Branch MIGRAINES rizatriptan 2-0 Yes DISSOLVE 1 [facility] 10 mg 6-02 TABLET IN ity of disintegrat 00:00: MOUTH ONCE [place] ing tablet 00 DAILY Medic al NEEDED FOR Branch MIGRAINES rizatriptan 2021-0 Yes DISSOLVE 1 [facility] 10 mg 6-02 TABLET IN ity of disintegrat 00:00: MOUTH ONCE [place] ing tablet 00 DAILY Medic al NEEDED FOR Branch MIGRAINES rizatriptan 2021-0 Yes DISSOLVE 1 [facility] 10 mg 6-02 TABLET IN ity of disintegrat 00:00: MOUTH ONCE [place] ing tablet 00 DAILY Medic al NEEDED FOR Branch MIGRAINES rizatriptan 2021-0 Yes DISSOLVE 1 [facility] 10 mg 6-02 TABLET IN ity of disintegrat 00:00: MOUTH ONCE [place] ing tablet 00 DAILY Medic al NEEDED FOR Branch MIGRAINES rizatriptan 2021-0 Yes DISSOLVE 1 [facility] 10 mg 6-02 TABLET IN ity of disintegrat 00:00: MOUTH ONCE [place] ing tablet 00 DAILY Medic al NEEDED FOR Branch MIGRAINES rizatriptan 2021-0 Yes DISSOLVE 1 [facility] 10 mg 6-02 TABLET IN ity of disintegrat 00:00: MOUTH ONCE [place] ing tablet 00 DAILY Medic al NEEDED FOR Branch MIGRAINES rizatriptan 2021-0 Yes DISSOLVE 1 [facility] 10 mg 6-02 TABLET IN ity of disintegrat 00:00: MOUTH ONCE [place] ing tablet 00 DAILY Medic al NEEDED FOR Branch MIGRAINES rizatriptan 2021-0 Yes DISSOLVE 1 [facility] 10 mg 6-02 TABLET IN ity of disintegrat 00:00: MOUTH ONCE [place] ing tablet 00 DAILY Medic al NEEDED FOR [facility] MIGRAINES rizatriptan 2021-0 Yes DISSOLVE 1 [facility] 10 mg 6-02 TABLET IN ity of disintegrat 00:00: MOUTH ONCE [place] ing tablet 00 DAILY Medic al NEEDED FOR Branch MIGRAINES rizatriptan 2021-0 Yes DISSOLVE 1 [facility] 10 mg 6-02 TABLET IN ity of disintegrat 00:00: MOUTH ONCE [place] ing tablet 00 DAILY Medic al NEEDED FOR Branch MIGRAINES rizatriptan 2021-0 Yes DISSOLVE 1 [facility] 10 mg 6-02 TABLET IN ity of disintegrat 00:00: MOUTH ONCE [place] ing tablet 00 DAILY Medic al NEEDED FOR Branch MIGRAINES rizatriptan 2021-0 Yes DISSOLVE 1 [facility] 10 mg 6-02 TABLET IN ity of disintegrat 00:00: MOUTH ONCE [place] ing tablet 00 DAILY Medic al NEEDED FOR [facility] MIGRAINES rizatriptan 2021-0 Yes DISSOLVE 1 [facility] 10 mg 6-02 TABLET IN ity of disintegrat 00:00: MOUTH ONCE [place] ing tablet 00 DAILY Medic al NEEDED FOR [facility] MIGRAINES rizatriptan 2021-0 Yes DISSOLVE 1 [facility] 10 mg 6-02 TABLET IN ity of disintegrat 00:00: MOUTH ONCE [place] ing tablet 00 DAILY Medic al NEEDED FOR [facility] MIGRAINES rizatriptan 2021-0 Yes DISSOLVE 1 [facility] 10 mg 6-02 TABLET IN ity of disintegrat 00:00: MOUTH ONCE [place] ing tablet 00 DAILY Medic al NEEDED FOR [facility] MIGRAINES rizatriptan 2021-0 Yes DISSOLVE 1 [facility] 10 mg 6-02 TABLET IN ity of disintegrat 00:00: MOUTH ONCE [place] ing tablet 00 DAILY Medic al NEEDED FOR [facility] MIGRAINES rizatriptan 2021-0 Yes DISSOLVE 1 [facility] 10 mg 6-02 TABLET IN ity of disintegrat 00:00: MOUTH ONCE [place] ing tablet 00 DAILY Medic al NEEDED FOR [facility] MIGRAINES rizatriptan 2021-0 Yes DISSOLVE 1 [facility] 10 mg 6-02 TABLET IN ity of disintegrat 00:00: MOUTH ONCE [place] ing tablet 00 DAILY Medic al NEEDED FOR [facility] MIGRAINES rizatriptan 2021-0 Yes DISSOLVE 1 [facility] 10 mg 6-02 TABLET IN ity of disintegrat 00:00: MOUTH ONCE [place] ing tablet 00 DAILY Medic al NEEDED FOR [facility] MIGRAINES rizatriptan 2021-0 Yes DISSOLVE 1 [facility] 10 mg 6-02 TABLET IN ity of disintegrat 00:00: MOUTH ONCE [place] ing tablet 00 DAILY Medic al NEEDED FOR [facility] MIGRAINES rizatriptan 2021-0 Yes DISSOLVE 1 [facility] 10 mg 6-02 TABLET IN ity of disintegrat 00:00: MOUTH ONCE [place] ing tablet 00 DAILY Medic al NEEDED FOR [facility] MIGRAINES rizatriptan 2021-0 Yes DISSOLVE 1 [facility] 10 mg 6-02 TABLET IN ity of disintegrat 00:00: MOUTH ONCE [place] ing tablet 00 DAILY Medic al NEEDED FOR [facility] MIGRAINES rizatriptan 2021-0 Yes DISSOLVE 1 [facility] 10 mg 6-02 TABLET IN ity of disintegrat 00:00: MOUTH ONCE [place] ing tablet 00 DAILY Medic al NEEDED FOR [facility] MIGRAINES rizatriptan 2021-0 Yes DISSOLVE 1 [facility] 10 mg 6-02 TABLET IN ity of disintegrat 00:00: MOUTH ONCE [place] ing tablet 00 DAILY Medic al NEEDED FOR [facility] MIGRAINES rizatriptan 2021-0 Yes DISSOLVE 1 [facility] 10 mg 6-02 TABLET IN ity of disintegrat 00:00: MOUTH ONCE [place] ing tablet 00 DAILY Medic al NEEDED FOR [facility] MIGRAINES rizatriptan 2021-0 Yes DISSOLVE 1 [facility] 10 mg 6-02 TABLET IN ity of disintegrat 00:00: MOUTH ONCE [place] ing tablet 00 DAILY Medic al NEEDED FOR [facility] MIGRAINES rizatriptan 2021-0 Yes DISSOLVE 1 [facility] 10 mg 6-02 TABLET IN ity of disintegrat 00:00: MOUTH ONCE [place] ing tablet 00 DAILY Medic al NEEDED FOR [facility] MIGRAINES rizatriptan 2021-0 Yes DISSOLVE 1 [facility] 10 mg 6-02 TABLET IN ity of disintegrat 00:00: MOUTH ONCE [place] ing tablet 00 DAILY Medic al NEEDED FOR [facility] MIGRAINES rizatriptan 2021-0 Yes DISSOLVE 1 [facility] 10 mg 6-02 TABLET IN ity of disintegrat 00:00: MOUTH ONCE [place] ing tablet 00 DAILY Medic al NEEDED FOR [facility] MIGRAINES rizatriptan 2021-0 Yes DISSOLVE 1 [facility] 10 mg 6-02 TABLET IN ity of disintegrat 00:00: MOUTH ONCE [place] ing tablet 00 DAILY Medic al NEEDED FOR [facility] MIGRAINES rizatriptan 2021-0 Yes DISSOLVE 1 [facility] 10 mg 6-02 TABLET IN ity of disintegrat 00:00: MOUTH ONCE [place] ing tablet 00 DAILY Medic al NEEDED FOR [facility] MIGRAINES rizatriptan 2021-0 Yes DISSOLVE 1 [facility] 10 mg 6-02 TABLET IN ity of disintegrat 00:00: MOUTH ONCE [place] ing tablet 00 DAILY Medic al NEEDED FOR [facility] MIGRAINES rizatriptan 2021-0 Yes DISSOLVE 1 [facility] 10 mg 6-02 TABLET IN ity of disintegrat 00:00: MOUTH ONCE [place] ing tablet 00 DAILY Medic al NEEDED FOR [facility] MIGRAINES rizatriptan 2021-0 Yes DISSOLVE 1 [facility] 10 mg 6-02 TABLET IN ity of disintegrat 00:00: MOUTH ONCE [place] ing tablet 00 DAILY Medic al NEEDED FOR [facility] MIGRAINES rizatriptan 2021-0 2022- No DISSOLVE 1 [facility] 10 mg 6-02 09-02 TABLET IN ity of disintegrat 00:00: 00:00 MOUTH ONCE [place] ing tablet 00 :00 DAILY Medic al NEEDED FOR [facility] MIGRAINES rizatriptan 2022- No DISSOLVE 1 [facility] 10 mg -09-02 TABLET IN ity of disintegrat 00:00: 00:00 MOUTH ONCE [place] ing tablet 00 :00 DAILY Medic al NEEDED FOR [facility] MIGRAINES rizatriptan 2021-2022- No DISSOLVE 1 [facility] 10 mg -09-02 TABLET IN ity of disintegrat 00:00: 00:00 MOUTH ONCE [place] ing tablet 00 :00 DAILY Medic al NEEDED FOR [facility] MIGRAINES rizatriptan 2022- No DISSOLVE 1 [facility] 10 mg -09-02 TABLET IN ity of disintegrat 00:00: 00:00 MOUTH ONCE [place] ing tablet 00 :00 DAILY Medic al NEEDED FOR [facility] MIGRAINES omeprazole 2-0 Yes 40mg Take 40 mg [facility] n[facility] 40 mg 6-01 by mouth ity of capsule 00:00: daily. [place] [facility] omeprazole 2022-0 Yes 40mg Take 40 mg [facility] n[facility] 40 mg 6-01 by mouth ity of capsule 00:00: daily. [place] [facility] omeprazole 2022-0 Yes 40mg Take 40 mg U n[facility] 40 mg 6-01 by mouth ity of capsule 00:00: daily. [place] [facility] omeprazole 2022-0 Yes 40mg Take 40 mg U n[facility] 40 mg 6-01 by mouth ity of capsule 00:00: daily. [place] [facility] omeprazole 2022-0 Yes 40mg Take 40 mg U n[facility] 40 mg 6-01 by mouth ity of capsule 00:00: daily. [place] [facility] omeprazole 2022-0 Yes 40mg Take 40 mg U n[facility] 40 mg 6-01 by mouth ity of capsule 00:00: daily. [place] [facility] omeprazole 2022-0 Yes 40mg Take 40 mg U nivers 40 mg 6-01 by mouth ity of capsule 00:00: daily. [place] [facility] omeprazole 2022-0 Yes 40mg Take 40 mg U nivers 40 mg 6-01 by mouth ity of capsule 00:00: daily. [place] [facility] omeprazole 2022-0 Yes 40mg Take 40 mg U nivers 40 mg 6-01 by mouth ity of capsule 00:00: daily. [place] [facility] omeprazole 2021-0 Yes 40mg Take 40 mg U nivers 40 mg 01-05 by mouth ity of capsule 00:00: daily. [place] [facility] omeprazole 2021-0 2021- No 40mg Take 40 mg [facility] 40 mg 01-05 by mouth ity of capsule 00:00: 00:00 daily. [place] 00 : [facility] omeprazole 2021-0 2- No 40mg Take 40 mg [facility] 40 mg 01-05 by mouth ity of capsule 00:00: 00:00 daily. [place] 00 :00 [facility] EUTHYROX 2021-0 Yes 137ug Take 137 [facility] ers 137 mcg 5-31 mcg by ity of tablet 00:00: mouth. [place] [facility] EUTHYROX 2021-0 Yes 137ug Take 137 [facility] ers 137 mcg 5-31 mcg by ity of tablet 00:00: mouth. [place] [facility] EUTHYROX 2021-0 Yes 137ug Take 137 [facility] ers 137 mcg 5-31 mcg by ity of tablet 00:00: mouth. [place] [facility] EUTHYROX 2-0 Yes 137ug Take 137 [facility] ers 137 mcg 5-31 mcg by ity of tablet 00:00: mouth. [place] [facility] EUTHYROX 2-0 Yes 137ug Take 137 [facility] ers 137 mcg 5-31 mcg by ity of tablet 00:00: mouth. [place] [facility] EUTHYROX 2-0 Yes 137ug Take 137 [facility] ers 137 mcg 5-31 mcg by ity of tablet 00:00: mouth. [place] [facility] EUTHYROX 2-0 Yes 137ug Take 137 [facility] ers 137 mcg 5-31 mcg by ity of tablet 00:00: mouth. [place] [facility] EUTHYROX 2-0 Yes 137ug Take 137 [facility] ers 137 mcg 5-31 mcg by ity of tablet 00:00: mouth. [place] [facility] EUTHYROX 2-0 Yes 137ug Take 137 [facility] ers 137 mcg 5-31 mcg by ity of tablet 00:00: mouth. [place] [facility] EUTHYROX 2-0 Yes 137ug Take 137 [facility] ers 137 mcg 5-31 mcg by ity of tablet 00:00: mouth. [place] [facility] EUTHYROX 2-0 Yes 137ug Take 137 [facility] 137 mcg 5-31 mcg by ity of tablet 00:00: mouth. [place] 00 [facility] EUTHYROX 2-0 Yes 137ug Take 137 [facility] ers 137 mcg 5-31 mcg by ity of tablet 00:00: mouth at [place] [address] bedtime. Medical [facility] EUTHYROX 2-0 Yes 137ug Take 137 [facility] ers 137 mcg 5-31 mcg by ity of tablet 00:00: mouth at [place] [address] bedtime. [facility] EUTHYROX 2-0 Yes 137ug Take 137 [facility] ers 137 mcg 5-31 mcg by ity of tablet 00:00: mouth at [place] [address] bedtime. [facility] EUTHYROX 2-0 Yes 137ug Take 137 [facility] 137 mcg 5-31 mcg by ity of tablet 00:00: mouth at [place] [address] bedtime. [facility] EUTHYROX 2-0 Yes 137ug Take 137 [facility] ers 137 mcg 5-31 mcg by ity of tablet 00:00: mouth at [place] [address] bedtime. [facility] EUTHYROX 2-0 Yes 137ug Take 137 [facility] 137 mcg 5-31 mcg by ity of tablet 00:00: mouth at [place] [address] bedtime. [facility] EUTHYROX 2-0 Yes 137ug Take 137 [facility] 137 mcg 5-31 mcg by ity of tablet 00:00: mouth at [place] [address] bedtime. [facility] EUTHYROX 2-0 Yes 137ug Take 137 [facility] 137 mcg 5-31 mcg by ity of tablet 00:00: mouth at [place] [address] bedtime. [facility] EUTHYROX 2-0 Yes 137ug Take 137 [facility] 137 mcg 5-31 mcg by ity of tablet 00:00: mouth at [place] [address] bedtime. [facility] EUTHYROX 2-0 Yes 137ug Take 137 [facility] 137 mcg 5-31 mcg by ity of tablet 00:00: mouth at [place] [address] bedtime. [facility] EUTHYROX 2-0 Yes 137ug Take 137 [facility] 137 mcg 5-31 mcg by ity of tablet 00:00: mouth at [place] [address] bedtime. [facility] EUTHYROX 2-0 Yes 137ug Take 137 [facility] 137 mcg 5-31 mcg by ity of tablet 00:00: mouth at [place] [address] bedtime. [facility] EUTHYROX 2-0 Yes 137ug Take 137 [facility] 137 mcg 5-31 mcg by ity of tablet 00:00: mouth at [place] [address] bedtime. [facility] EUTHYROX 2-0 Yes 137ug Take 137 [facility] 137 mcg 5-31 mcg by ity of tablet 00:00: mouth at [place] [address] bedtime. [facility] EUTHYROX 2-0 Yes 137ug Take 137 [facility] 137 mcg 5-31 mcg by ity of tablet 00:00: mouth at [place] [address] bedtime. [facility] EUTHYROX 2-0 Yes 137ug Take 137 [facility] 137 mcg 5-31 mcg by ity of tablet 00:00: mouth at [place] [address] bedtime. [facility] EUTHYROX 2-0 Yes 137ug Take 137 [facility] 137 mcg 5-31 mcg by ity of tablet 00:00: mouth at [place] [address] bedtime. [facility] EUTHYROX 2-0 Yes 137ug Take 137 [facility] 137 mcg 5-31 mcg by ity of tablet 00:00: mouth at [place] [address] bedtime. [facility] EUTHYROX 2-0 Yes 137ug Take 137 [facility] 137 mcg 5-31 mcg by ity of tablet 00:00: mouth at [place] [address] bedtime. [facility] EUTHYROX 2-0 Yes 137ug Take 137 [facility] 137 mcg 5-31 mcg by ity of tablet 00:00: mouth at [place] [address] bedtime. [facility] EUTHYROX 2-0 Yes 137ug Take 137 [facility] 137 mcg 5-31 mcg by ity of tablet 00:00: mouth at [place] [address] bedtime. [facility] EUTHYROX 2-0 Yes 137ug Take 137 [facility] 137 mcg 5-31 mcg by ity of tablet 00:00: mouth at [place] [address] bedtime. [facility] EUTHYROX 2-0 Yes 137ug Take 137 [facility] 137 mcg 5-31 mcg by ity of tablet 00:00: mouth at [place] [address] bedtime. [facility] EUTHYROX 2-0 Yes 137ug Take 137 [facility] 137 mcg 5-31 mcg by ity of tablet 00:00: mouth at [place] [address] bedtime. [facility] EUTHYROX 2-0 Yes 137ug Take 137 [facility] 137 mcg 5-31 mcg by ity of tablet 00:00: mouth at [place] [address] bedtime. [facility] EUTHYROX 2-0 Yes 137ug Take 137 [facility] 137 mcg 5-31 mcg by ity of tablet 00:00: mouth at [place] [address] bedtime. [facility] EUTHYROX 2-0 Yes 137ug Take 137 [facility] 137 mcg 5-31 mcg by ity of tablet 00:00: mouth at [place] [address] bedtime. [facility] EUTHYROX 2-0 Yes 137ug Take 137 [facility] 137 mcg 5-31 mcg by ity of tablet 00:00: mouth at [place] [address] bedtime. [facility] EUTHYROX 2-0 Yes 137ug Take 137 [facility] 137 mcg 5-31 mcg by ity of tablet 00:00: mouth at [place] [address] bedtime. [facility] EUTHYROX 2-0 Yes 137ug Take 137 [facility] 137 mcg 5-31 mcg by ity of tablet 00:00: mouth at [place] [address] bedtime. [facility] EUTHYROX 2-0 Yes 137ug Take 137 [facility] 137 mcg 5-31 mcg by ity of tablet 00:00: mouth at [place] [address] bedtime. [facility] EUTHYROX 2-0 Yes 137ug Take 137 [facility] 137 mcg 5-31 mcg by ity of tablet 00:00: mouth at [place] [address] bedtime. [facility] EUTHYROX 2-0 Yes 137ug Take 137 [facility] 137 mcg 5-31 mcg by ity of tablet 00:00: mouth at [place] [address] bedtime. [facility] EUTHYROX 2-0 Yes 137ug Take 137 [facility] 137 mcg 5-31 mcg by ity of tablet 00:00: mouth at [place] [address] bedtime. [facility] EUTHYROX 2-0 Yes 137ug Take 137 [facility] 137 mcg 5-31 mcg by ity of tablet 00:00: mouth at [place] [address] bedtime. [facility] EUTHYROX 2-0 Yes 137ug Take 137 [facility] 137 mcg 5-31 mcg by ity of tablet 00:00: mouth at [place] [address] bedtime. [facility] EUTHYROX 2-0 Yes 137ug Take 137 [facility] 137 mcg 5-31 mcg by ity of tablet 00:00: mouth at [place] [address] bedtime. [facility] EUTHYROX 2-0 Yes 137ug Take 137 [facility] 137 mcg 5-31 mcg by ity of tablet 00:00: mouth at [place] [address] bedtime. [facility] EUTHYROX 2-0 Yes 137ug Take 137 [facility] 137 mcg 5-31 mcg by ity of tablet 00:00: mouth at [place] [address] bedtime. [facility] EUTHYROX 2-0 Yes 137ug Take 137 [facility] 137 mcg 5-31 mcg by ity of tablet 00:00: mouth at [place] [address] bedtime. [facility] EUTHYROX 2-0 Yes 137ug Take 137 [facility] 137 mcg 5-31 mcg by ity of tablet 00:00: mouth at [place] [address] bedtime. [facility] EUTHYROX 2-0 Yes 137ug Take 137 [facility] 137 mcg 5-31 mcg by ity of tablet 00:00: mouth at [place] [address] bedtime. [facility] EUTHYROX 2-0 Yes 137ug Take 137 [facility] 137 mcg 5-31 mcg by ity of tablet 00:00: mouth at [place] [address] bedtime. [facility] EUTHYROX 2-0 Yes 137ug Take 137 [facility] 137 mcg 5-31 mcg by ity of tablet 00:00: mouth at [place] [address] bedtime. [facility] EUTHYROX 2-0 Yes 137ug Take 137 [facility] 137 mcg 5-31 mcg by ity of tablet 00:00: mouth at [place] [address] bedtime. [facility] EUTHYROX 2-0 Yes 137ug Take 137 [facility] 137 mcg 5-31 mcg by ity of tablet 00:00: mouth at [place] [address] bedtime. [facility] EUTHYROX 2-0 Yes 137ug Take 137 [facility] 137 mcg 5-31 mcg by ity of tablet 00:00: mouth at [place] [address] bedtime. [facility] EUTHYROX 2-0 Yes 137ug Take 137 [facility] 137 mcg 5-31 mcg by ity of tablet 00:00: mouth at [place] [address] bedtime. [facility] EUTHYROX 2-0 Yes 137ug Take 137 [facility] 137 mcg 5-31 mcg by ity of tablet 00:00: mouth at [place] [address] bedtime. [facility] EUTHYROX 2-0 Yes 137ug Take 137 [facility] 137 mcg 5-31 mcg by ity of tablet 00:00: mouth at [place] [address] bedtime. [facility] EUTHYROX 2-0 Yes 137ug Take 137 [facility] 137 mcg 5-31 mcg by ity of tablet 00:00: mouth at [place] [address] bedtime. [facility] EUTHYROX 2-0 Yes 137ug Take 137 [facility] ers 137 mcg 5-31 mcg by ity of tablet 00:00: mouth at [place] [address] bedtime. [facility] EUTHYROX 2022-0 Yes 137ug Take 137 [facility] ers 137 mcg 5-31 mcg by ity of tablet 00:00: mouth at [place] [address] bedtime. [facility] EUTHYROX 2022-0 Yes 137ug Take 137 [facility] ers 137 mcg 5-31 mcg by ity of tablet 00:00: mouth at [place] [address] bedtime. [facility] EUTHYROX 2022-0 Yes 137ug Take 1 Univer s 137 mcg 5-31 tablet by ity of tablet 00:00: mouth at [place] [address] bedtime. Medical Takes at Branch night per patient EUTHYROX 2022-0 Yes 137ug Take 1 Un[facility] s 137 mcg 5-31 tablet by ity of tablet 00:00: mouth at [place] [address] bedtime. Medical Takes at Branch night per patient EUTHYROX 2022-0 Yes 137ug Take 1 Un[facility] s 137 mcg 5-31 tablet by ity of tablet 00:00: mouth at [place] [address] bedtime. Medical Takes at Branch night per patient EUTHYROX 2022-0 Yes 137ug Take 1 Un[facility] s 137 mcg 5-31 tablet by ity of tablet 00:00: mouth at [place] [address] bedtime. Medical Takes at Branch night per patient EUTHYROX 2022-0 Yes 137ug Take 1 Un[facility] s 137 mcg 5-31 tablet by ity of tablet 00:00: mouth at [place] [address] bedtime. Medical Takes at Branch night per patient EUTHYROX 2022-0 Yes 137ug Take 1 [facility] s 137 mcg 5-31 tablet by ity of tablet 00:00: mouth at [place] [address] bedtime. Medical Takes at Branch night per patient EUTHYROX 2022-0 Yes 137ug Take 1 [facility] s 137 mcg 5-31 tablet by ity of tablet 00:00: mouth at [place] [address] bedtime. Medical Takes at Branch night per patient EUTHYROX 2022-0 Yes 137ug Take 1 [facility] s 137 mcg 5-31 tablet by ity of tablet 00:00: mouth at [place] [address] bedtime. Medical Takes at Branch night per patient EUTHYROX 2022-0 Yes 137ug Take 1 [facility] s 137 mcg 5-31 tablet by ity of tablet 00:00: mouth at [place] [address] bedtime. Medical Takes at Branch night per patient EUTHYROX 2022-0 Yes 137ug Take 137 [facility] ers 137 mcg 5-31 mcg by ity of tablet 00:00: mouth. [place] 00 [facility] EUTHYROX 2-0 Yes 137ug Take 137 [facility] ers 137 mcg 5-31 mcg by ity of tablet 00:00: mouth. [place] [facility] EUTHYROX 2021-0 Yes 137ug Take 137 [facility] ers 137 mcg 5-31 mcg by ity of tablet 00:00: mouth. [place] [facility] EUTHYROX 2021-0 Yes 137ug Take 137 [facility] ers 137 mcg 5-31 mcg by ity of tablet 00:00: mouth. [place] [facility] EUTHYROX 2021-0 Yes 137ug Take 137 [facility] ers 137 mcg 5-31 mcg by ity of tablet 00:00: mouth. [place] [facility] EUTHYROX 2021-0 Yes 137ug Take 137 [facility] ers 137 mcg 5-31 mcg by ity of tablet 00:00: mouth. [place] [facility] EUTHYROX 2021-0 Yes 137ug Take 137 [facility] ers 137 mcg 5-31 mcg by ity of tablet 00:00: mouth. [place] [facility] EUTHYROX 2021-0 Yes 137ug Take 137 [facility] ers 137 mcg 5-31 mcg by ity of tablet 00:00: mouth. [place] [facility] EUTHYROX 2021-0 Yes 137ug Take 137 [facility] ers 137 mcg 5-31 mcg by ity of tablet 00:00: mouth. [place] [facility] EUTHYROX 2021-0 Yes 137ug Take 137 [facility] ers 137 mcg 5-31 mcg by ity of tablet 00:00: mouth. [place] [facility] EUTHYROX 2021-0 Yes 137ug Take 137 [facility] ers 137 mcg 5-31 mcg by ity of tablet 00:00: mouth. [place] [facility] EUTHYROX 2-0 3- No 137ug Take 1 [facility] rs 137 mcg 5-31 04-14 tablet by ity of tablet 00:00: 00:00 mouth at [place] 00 :00 bedtime. Medical Takes at Branch night per patient EUTHYROX 2022-0 3- No 137ug Take 1 [facility] rs 137 mcg 5-31 04-14 tablet by ity of tablet 00:00: 00:00 mouth at [place] 00 :00 bedtime. Medical Takes at Branch night per patient EUTHYROX 2022-0 3- No 137ug Take 1 [facility] rs 137 mcg 5-31 04-14 tablet by ity of tablet 00:00: 00:00 mouth at [place] 00 :00 bedtime. Medical Takes at Branch night per patient cyclobenzap 2022-0 Yes 10mg 10 mg 3 [facility] vers rine 10 mg 4-21 (three) ity of tablet 00:00: times [place] 00 daily as Medical needed. Branch cyclobenzap 2-0 Yes 10mg 10 mg 3 [facility] vers rine 10 mg 4-21 (three) ity of tablet 00:00: times [place] 00 daily as Medical needed. Branch cyclobenzap 2-0 Yes 10mg 10 mg 3 [facility] vers rine 10 mg 4-21 (three) ity of tablet 00:00: times [place] 00 daily as Medical needed. Branch cyclobenzap 2-0 Yes 10mg 10 mg 3 [facility] vers rine 10 mg 4-21 (three) ity of tablet 00:00: times [place] 00 daily as Medical needed. Branch cyclobenzap 2-0 Yes 10mg 10 mg 3 [facility] vers rine 10 mg 4-21 (three) ity of tablet 00:00: times [place] 00 daily as Medical needed. Branch cyclobenzap 2-0 Yes 10mg 10 mg 3 [facility] vers rine 10 mg 4-21 (three) ity of tablet 00:00: times [place] 00 daily as Medical needed. Branch cyclobenzap 2-0 Yes 10mg 10 mg 3 [facility] vers rine 10 mg 4-21 (three) ity of tablet 00:00: times [place] 00 daily as Medical needed. Branch cyclobenzap 2-0 Yes 10mg 10 mg 3 [facility] vers rine 10 mg 4-21 (three) ity of tablet 00:00: times [place] 00 daily as Medical needed. Branch cyclobenzap 2-0 Yes 10mg 10 mg 3 [facility] vers rine 10 mg 4-21 (three) ity of tablet 00:00: times [place] 00 daily as Medical needed. Branch cyclobenzap 2022-0 Yes 10mg 10 mg 3 [facility] vers rine 10 mg 4-21 (three) ity of tablet 00:00: times [place] 00 daily as Medical needed. Branch cyclobenzap 2-0 2021- No 10mg 10 mg 3 Un claudia rine 10 mg 4-21 05-15 (three) ity o f tablet 00:00: 00:00 times [place] 00 :00 daily as Medical needed. Branch cyclobenzap 2022-0 2021- No 10mg 10 mg 3 Un claudia rine 10 mg 4-21 10-09 (three) ity o f tablet 00:00: 00:00 times [place] 00 :00 daily as Medical needed. Branch ZOLMitripta 0 Yes 1 tab(s) Un claudia n (ZOMIG) 5 4-08 ity of mg nasal 00:00: [place] solution [facility] ZOLMitripta 2021-0 Yes 1 tab(s) Un [facility] n (ZOMIG) 5 4-08 ity of mg nasal 00:00: [place] solution 00 [facility] ZOLMitripta 2021-0 Yes 1 tab(s) Un cl[facility]ia n (ZOMIG) 5 4-08 ity of mg nasal 00:00: [place] solution [facility] ZOLMitripta 2021-0 Yes 1 tab(s) Un [facility] n (ZOMIG) 5 4-08 ity of mg nasal 00:00: [place] solution [facility] ZOLMitripta 2021-0 Yes 1 tab(s) Un claudia n 5 mg 4-08 ity of nasal 00:00: [place] solution 00 [facility] ZOLMitripta 2021-0 Yes 1 tab(s) Un claudai n 5 mg 4-08 ity of nasal 00:00: [place] solution [facility] ZOLMitripta 2021-0 Yes 1 tab(s) Un claudia n 5 mg 4-08 ity of nasal 00:00: [place] solution 00 [facility] ZOLMitripta 2021-0 Yes 1 tab(s) Un claudia n 5 mg 4-08 ity of nasal 00:00: [place] solution 00 [facility] ZOLMitripta 2021-0 Yes 1 tab(s) Un claudia n 5 mg 4-08 ity of nasal 00:00: [place] solution 00 [facility] ZOLMitripta 2021-0 Yes 1 tab(s) Un claudia n 5 mg 4-08 ity of nasal 00:00: [place] solution 00 [facility] ZOLMitripta 2021-0 Yes 1 tab(s) Un cl[facility]ia n 5 mg 4-08 ity of nasal 00:00: [place] solution 00 [facility] ZOLMitripta 2021-0 Yes 1 tab(s) Un cl[facility]ia n 5 mg 4-08 ity of nasal 00:00: [place] solution 00 [facility] ZOLMitripta 2022-0 Yes 1 tab(s) Un cl[facility]ia n 5 mg 4-08 ity of nasal 00:00: [place] solution 00 [facility] ZOLMitripta 2022-0 Yes 1 tab(s) Un [facility]ia n 5 mg 4-08 ity of nasal 00:00: [place] solution 00 [facility] ZOLMitripta 2022-0 Yes 1 tab(s) Un cl[facility]ia n 5 mg 4-08 ity of nasal 00:00: [place] solution 00 [facility] ZOLMitripta 2022-0 Yes 1 tab(s) Un [facility]ia n 5 mg 4-08 ity of nasal 00:00: [place] solution 00 [facility] ZOLMitripta 2-0 Yes 1 tab(s) Un cl[facility]ia n 5 mg 4-08 ity of nasal 00:00: [place] solution 00 [facility] ZOLMitripta 2022-0 Yes 1 tab(s) Un cl[facility]ia n 5 mg 4-08 ity of nasal 00:00: [place] solution 00 [facility] ZOLMitripta 2022-0 Yes 1 tab(s) Un [facility] n 5 mg 4-08 ity of nasal 00:00: [place] solution 00 [facility] ZOLMitripta 2022-0 Yes 1 tab(s) Un [facility] n 5 mg 4-08 ity of nasal 00:00: [place] solution 00 [facility] ZOLMitripta 2022-0 Yes 1 tab(s) Un [facility] n 5 mg 4-08 ity of nasal 00:00: [place] solution 00 [facility] ZOLMitripta 2022-0 Yes 1 tab(s) [facility] n 5 mg 4-08 ity of nasal 00:00: [place] solution 00 [facility] ZOLMitripta 2022-0 Yes 1 tab(s) [facility] n 5 mg 4-08 ity of nasal 00:00: [place] solution 00 [facility] ZOLMitripta 2022-0 Yes 1 tab(s) [facility] n 5 mg 4-08 ity of nasal 00:00: [place] solution 00 [facility] ZOLMitripta 2022-0 Yes 1 tab(s) [facility] n 5 mg 4-08 ity of nasal 00:00: [place] solution 00 [facility] ZOLMitripta 2022-0 Yes 1 tab(s) [facility] n 5 mg 4-08 ity of nasal 00:00: [place] solution 00 [facility] ZOLMitripta 2022-0 Yes 1 tab(s) [facility] n 5 mg 4-08 ity of nasal 00:00: [place] solution 00 [facility] ZOLMitripta 2022-0 Yes 1 tab(s) Un [facility] n 5 mg 4-08 ity of nasal 00:00: [place] solution 00 [facility] ZOLMitripta 2-0 Yes 1 tab(s) Un [facility] n 5 mg 4-08 ity of nasal 00:00: [place] solution 00 [facility] ZOLMitripta 2022-0 Yes 1 tab(s) Un [facility] n 5 mg 4-08 ity of nasal 00:00: [place] solution 00 [facility] ZOLMitripta 2-0 Yes 1 tab(s) Un [facility] n 5 mg 4-08 ity of nasal 00:00: [place] solution 00 [facility] ZOLMitripta 2-0 Yes 1 tab(s) Un cl[facility]ia n 5 mg 4-08 ity of nasal 00:00: [place] solution 00 [facility] ZOLMitripta 2-0 Yes 1 tab(s) Un cl[facility]ia n 5 mg 4-08 ity of nasal 00:00: [place] solution 00 [facility] ZOLMitripta 2022-0 Yes 1 tab(s) Un cl[facility] n 5 mg 4-08 ity of nasal 00:00: [place] solution 00 [facility] ZOLMitripta 2-0 Yes 1 tab(s) Un [facility] n 5 mg 4-08 ity of nasal 00:00: [place] solution 00 [facility] ZOLMitripta 2022-0 Yes 1 tab(s) Un [facility] n 5 mg 4-08 ity of nasal 00:00: [place] solution 00 [facility] ZOLMitripta 2-0 Yes 1 tab(s) Un [facility] n 5 mg 4-08 ity of nasal 00:00: [place] solution 00 [facility] ZOLMitripta 2-0 Yes 1 tab(s) Un [facility] n 5 mg 4-08 ity of nasal 00:00: [place] solution 00 [facility] bromphenira 2-0 Yes 10 mL Unive rs mine-pseudo 1-25 ity of ephedrine-D 00:00: [place] 230-10 00 Medical mg/5 mL Branch syrup bromphenira 2021-0 Yes 10 mL Unive rs mine-pseudo 1-25 ity of ephedrine-D 00:00: [facility] Medical mg/5 mL Branch syrup bromphenira 2022-0 Yes 10 mL Unive rs mine-pseudo 1-25 ity of ephedrine-D 00:00: [facility] Medical mg/5 mL Branch syrup bromphenira 2022-0 Yes 10 mL Unive rs mine-pseudo 1-25 ity of ephedrine-D 00:00: [facility] Medical mg/5 mL Branch syrup bromphenira 2022-0 Yes 10 mL Unive rs mine-pseudo 1-25 ity of ephedrine-D 00:00: [facility] Medical mg/5 mL Branch syrup bromphenira 2022-0 Yes 10 mL Unive rs mine-pseudo 1-25 ity of ephedrine-D 00:00: [facility] Medical mg/5 mL Branch syrup bromphenira 2022-0 Yes 10 mL Unive rs mine-pseudo 1-25 ity of ephedrine-D 00:00: [facility] Medical mg/5 mL Branch syrup bromphenira 2022-0 Yes 10 mL Unive rs mine-pseudo 1-25 ity of ephedrine-D 00:00: [facility] Medical mg/5 mL Branch syrup bromphenira 2022-0 Yes 10 mL Unive rs mine-pseudo 1-25 ity of ephedrine-D 00:00: [facility] Medical mg/5 mL Branch syrup bromphenira 2022-0 Yes 10 mL Unive rs mine-pseudo 1-25 ity of ephedrine-D 00:00: [facility] Medical mg/5 mL Branch syrup bromphenira 2022-0 Yes 10 mL Unive rs mine-pseudo 1-25 ity of ephedrine-D 00:00: [facility] Medical mg/5 mL Branch syrup bromphenira 2022-0 Yes 10 mL Unive rs mine-pseudo 1-25 ity of ephedrine-D 00:00: [facility] Medical mg/5 mL Branch syrup bromphenira 2022-0 Yes 10 mL Unive rs mine-pseudo 1-25 ity of ephedrine-D 00:00: [facility] Medical mg/5 mL Branch syrup bromphenira 2-0 Yes 10 mL Unive rs mine-pseudo 1-25 ity of ephedrine-D 00:00: [facility] Medical mg/5 mL Branch syrup bromphenira 2-0 Yes 10 mL Unive rs mine-pseudo 1-25 ity of ephedrine-D 00:00: [facility] Medical mg/5 mL Branch syrup bromphenira 2-0 Yes 10 mL Unive rs mine-pseudo 1-25 ity of ephedrine-D 00:00: [facility] Medical mg/5 mL Branch syrup bromphenira 2-0 Yes 10 mL Unive rs mine-pseudo 1-25 ity of ephedrine-D 00:00: [facility] Medical mg/5 mL Branch syrup bromphenira 2-0 Yes 10 mL Unive rs mine-pseudo 1-25 ity of ephedrine-D 00:00: [facility] Medical mg/5 mL Branch syrup bromphenira 2-0 2023- No 10 mL Univ ers mine-pseudo 1-25 04-12 ity of ephedrine-D 00:00: 00:00 [facility] 00 :00 Medical mg/5 mL Branch syrup bromphenira 2022-0 2023- No 10 mL Univ ers mine-pseudo 1-25 04-12 ity of ephedrine-D 00:00: 00:00 [facility] 00 :00 Medical mg/5 mL Branch syrup bromphenira 2022-0 2023- No 10 mL Univ ers mine-pseudo 1-25 04-12 ity of ephedrine-D 00:00: 00:00 [facility] 00 :00 Medical mg/5 mL Branch syrup divalproex 1-1 Yes 250mg Take 250 Un claudia (DEPAKOTE) 2-14 mg by ity of 250 mg EC 00:00: [place] tablet 00 the Medical morning Branch and 250 mg in the evening. divalproex 2020-08 Yes 250mg Take 250 Un cl[place] (DEPAKOTE) 2-14 mg by ity of 250 mg EC 00:00: [place] 00 the Medical morning Branch and 250 mg in the evening. divalproex 2020-08 Yes 250mg Take 250 Un [place] (DEPAKOTE) 2-14 mg by ity of 250 mg EC 00:00: [place] tablet 00 the Medical morning Branch and 250 mg in the evening. divalproex 2020-08 Yes 250mg Take 250 Un cl[place]ia (DEPAKOTE) 2-14 mg by ity of 250 mg EC 00:00: [place] tablet 00 the Medical morning Branch and 250 mg in the evening. divalproex 2020-08- No 250mg Take 250 U nivers (DEPAKOTE) 2-14 02-15 mg by ity of 250 mg EC 00:00: 00:00 mouth in [place] tablet 00 :00 the Medical morning Branch and 250 mg in the evening. divalproex 2020-08- No 250mg Take 250 U nivers (DEPAKOTE) 2-14 02-15 mg by ity of 250 mg EC 00:00: 00:00 mouth in [place] tablet 00 :00 the Medical morning Branch and 250 mg in the evening. traMADoL 50 2020-0 Yes 4647 50mg 50 mg Unive rs mg tablet 8-20 every 6 ity of 00:00: (six) [place] 00 hours as Medical needed. Branch Indication s: acute pain traMADoL 50 2020-0 Yes 4647 50mg 50 mg Unive rs mg tablet 8-20 every 6 ity of 00:00: (six) [place] 00 hours as Medical needed. Branch Indication s: acute pain traMADoL 50 2020-0 Yes 4647 50mg 50 mg Unive rs mg tablet 8-20 every 6 ity of 00:00: (six) [place] 00 hours as Medical needed. Branch Indication s: acute pain traMADoL 50 2020-0 Yes 4647 50mg 50 mg Unive rs mg tablet 8-20 every 6 ity of 00:00: (six) [place] 00 hours as Medical needed. Branch Indication s: acute pain traMADoL 50 2020-0 Yes 4647 50mg 50 mg Unive rs mg tablet 8-20 every 6 ity of 00:00: (six) [place] 00 hours as Medical needed. Branch Indication s: acute pain traMADoL 50 1-0 Yes 4647 50mg 50 mg Unive rs mg tablet 8-20 every 6 ity of 00:00: (six) [place] 00 hours as Medical needed. Branch Indication s: acute pain traMADoL 50 1-0 Yes 4647 50mg 50 mg Unive rs mg tablet 8-20 every 6 ity of 00:00: (six) [place] 00 hours as Medical needed. Branch Indication s: acute pain traMADoL 50 1-0 Yes 4647 50mg 50 mg Unive rs mg tablet 8-20 every 6 ity of 00:00: (six) [place] 00 hours as Medical needed. Branch Indication s: acute pain traMADoL 50 1-0 Yes 4647 50mg 50 mg Unive rs mg tablet 8-20 every 6 ity of 00:00: (six) [place] 00 hours as Medical needed. Branch Indication s: acute pain traMADoL 50 1-0 Yes 4647 50mg 50 mg Unive rs mg tablet 8-20 every 6 ity of 00:00: (six) [place] 00 hours as Medical needed. Branch Indication s: acute pain traMADoL 50 2020-0 2022- No 4647 50mg 50 mg Univ ers mg tablet 8-20 10-09 every 6 ity of 00:00: 00:00 (six) [place] 00 :00 hours as Medical needed. Branch Indication s: acute pain traMADoL 50 1-0 2022- No 4647 50mg 50 mg Univ ers mg tablet 8-20 10-09 every 6 ity of 00:00: 00:00 (six) [place] 00 :00 hours as Medical needed. Branch Indication s: acute pain FLUoxetine 2020-0 Yes 10mg Take 10 mg U nivers 20 mg 7-21 by mouth ity of tablet 00:00: daily. Medical Branch FLUoxetine 2020-0 Yes 10mg Take 10 mg U nivers 20 mg 7-21 by mouth ity of tablet 00:00: daily. Medical Branch FLUoxetine 2020-0 Yes 10mg Take 10 mg U nivers 20 mg 7-21 by mouth ity of tablet 00:00: daily. Medical Branch FLUoxetine 2020- Yes 10mg Take 10 mg U nivers 20 mg 7-21 by mouth ity of tablet 00:00: daily. [address] FLUoxetine 2021-0 Yes 10mg Take 10 mg U nivers 20 mg 7-21 by mouth ity of tablet 00:00: daily. [place] [facility] FLUoxetine 2021-0 Yes 10mg Take 10 mg U nivers 20 mg 7-21 by mouth ity of tablet 00:00: daily. [address] FLUoxetine 2021-0 Yes 10mg Take 10 mg U nivers 20 mg 7-21 by mouth ity of tablet 00:00: daily. [address] FLUoxetine 202-0 Yes 10mg Take 10 mg U nivers 20 mg 7-21 by mouth ity of tablet 00:00: daily. [address] FLUoxetine 2021-0 Yes 10mg Take 10 mg U nivers 20 mg 7-21 by mouth ity of tablet 00:00: daily. [address] FLUoxetine 2021-0 Yes 10mg Take 10 mg U nivers 20 mg 7-21 by mouth ity of tablet 00:00: daily. [address] FLUoxetine 2021-0 Yes 10mg Take 10 mg U nivers 20 mg 7-21 by mouth ity of tablet 00:00: daily. [address] FLUoxetine 2021-0 Yes 10mg Take 10 mg U nivers 20 mg 7-21 by mouth ity of tablet 00:00: daily. [address] FLUoxetine 2021-0 Yes 10mg Take 10 mg U nivers 20 mg 7-21 by mouth ity of tablet 00:00: daily. [address] FLUoxetine 2021-0 Yes 10mg Take 10 mg U nivers 20 mg 7-21 by mouth ity of tablet 00:00: daily. [address] FLUoxetine 2021-0 Yes 10mg Take 10 mg U nivers 20 mg 7-21 by mouth ity of tablet 00:00: daily. [address] FLUoxetine 2021-0 Yes 10mg Take 10 mg U nivers 20 mg 7-21 by mouth ity of tablet 00:00: daily. [address] FLUoxetine 2021-0 Yes 10mg Take 10 mg U nivers 20 mg 7-21 by mouth ity of tablet 00:00: daily. [address] FLUoxetine 2021-0 Yes 10mg Take 10 mg U nivers 20 mg 7-21 by mouth ity of tablet 00:00: daily. [address] FLUoxetine 2021-0 Yes 10mg Take 10 mg U nivers 20 mg 7-21 by mouth ity of tablet 00:00: daily. [place] [facility] FLUoxetine 2021-0 Yes 10mg Take 10 mg U nivers 20 mg 7-21 by mouth ity of tablet 00:00: daily. [place] [facility] FLUoxetine 2021-0 Yes 10mg Take 10 mg U nivers 20 mg 7-21 by mouth ity of tablet 00:00: daily. [place] [facility] FLUoxetine 2021-0 Yes 10mg Take 10 mg U nivers 20 mg 7-21 by mouth ity of tablet 00:00: daily. [address] FLUoxetine 2021-0 Yes 10mg Take 10 mg U nivers 20 mg 7-21 by mouth ity of tablet 00:00: daily. [address] FLUoxetine 2021-0 Yes 10mg Take 10 mg U nivers 20 mg 7-21 by mouth ity of tablet 00:00: daily. [address] FLUoxetine 2021-0 Yes 10mg Take 10 mg U nivers 20 mg 7-21 by mouth ity of tablet 00:00: daily. [address] FLUoxetine 2021-0 Yes 10mg Take 10 mg U nivers 20 mg 7-21 by mouth ity of tablet 00:00: daily. [address] FLUoxetine 2021-0 Yes 10mg Take 10 mg U nivers 20 mg 7-21 by mouth ity of tablet 00:00: daily. [address] FLUoxetine 2021-0 Yes 10mg Take 10 mg U nivers 20 mg 7-21 by mouth ity of tablet 00:00: daily. [address] FLUoxetine 2021-0 Yes 10mg Take 10 mg U nivers 20 mg 7-21 by mouth ity of tablet 00:00: daily. [address] FLUoxetine 2021-0 Yes 10mg Take 10 mg U nivers 20 mg 7-21 by mouth ity of tablet 00:00: daily. [address] FLUoxetine 2021-0 Yes 10mg Take 10 mg U nivers 20 mg 7-21 by mouth ity of tablet 00:00: daily. [address] FLUoxetine 2021-0 Yes 10mg Take 10 mg U nivers 20 mg 7-21 by mouth ity of tablet 00:00: daily. [address] FLUoxetine 2021-0 Yes 10mg Take 10 mg U nivers 20 mg 7-21 by mouth ity of tablet 00:00: daily. [place] [facility] FLUoxetine 2021-0 Yes 10mg Take 10 mg U nivers 20 mg 7-21 by mouth ity of tablet 00:00: daily. [address] FLUoxetine 2021-0 Yes 10mg Take 10 mg U nivers 20 mg 7-21 by mouth ity of tablet 00:00: daily. [place] [facility] FLUoxetine 2021-0 Yes 10mg Take 10 mg U nivers 20 mg 7-21 by mouth ity of tablet 00:00: daily. [address] FLUoxetine 2021-0 Yes 10mg Take 10 mg U nivers 20 mg 7-21 by mouth ity of tablet 00:00: daily. [address] FLUoxetine 2021-0 Yes 10mg Take 10 mg U nivers 20 mg 7-21 by mouth ity of tablet 00:00: daily. [address] FLUoxetine 2021-0 Yes 10mg Take 10 mg U nivers 20 mg 7-21 by mouth ity of tablet 00:00: daily. [address] FLUoxetine 2021-0 Yes 10mg Take 10 mg U nivers 20 mg 7-21 by mouth ity of tablet 00:00: daily. [address] FLUoxetine 2021-0 Yes 10mg Take 10 mg U nivers 20 mg 7-21 by mouth ity of tablet 00:00: daily. [address] FLUoxetine 2021-0 Yes 10mg Take 10 mg U nivers 20 mg 7-21 by mouth ity of tablet 00:00: daily. [address] FLUoxetine 2021-0 Yes 10mg Take 10 mg U nivers 20 mg 7-21 by mouth ity of tablet 00:00: daily. [address] FLUoxetine 2021-0 Yes 10mg Take 10 mg U nivers 20 mg 7-21 by mouth ity of tablet 00:00: daily. [address] FLUoxetine 2021-0 Yes 10mg Take 10 mg U nivers 20 mg 7-21 by mouth ity of tablet 00:00: daily. [address] FLUoxetine 2021-0 Yes 10mg Take 10 mg U nivers 20 mg 7-21 by mouth ity of tablet 00:00: daily. [address] FLUoxetine 2021-0 Yes 10mg Take 10 mg U nivers 20 mg 7-21 by mouth ity of tablet 00:00: daily. [place] [facility] FLUoxetine 2020-0 Yes 10mg Take 10 mg U nivers 20 mg 7-21 by mouth ity of tablet 00:00: daily. [address] FLUoxetine 2020-0 Yes 10mg Take 10 mg U nivers 20 mg 7-21 by mouth ity of tablet 00:00: daily. [address] FLUoxetine 2020-0 Yes 10mg Take 10 mg U nivers 20 mg 7-21 by mouth ity of tablet 00:00: daily. [address] FLUoxetine 2020-0 Yes 10mg Take 10 mg U nivers 20 mg 7-21 by mouth ity of tablet 00:00: daily. [address] FLUoxetine 2020-0 Yes 10mg Take 10 mg U nivers 20 mg 7-21 by mouth ity of tablet 00:00: daily. [address] FLUoxetine 2020-0 Yes 10mg Take 10 mg U nivers 20 mg 7-21 by mouth ity of tablet 00:00: daily. [address] FLUoxetine 2020-0 Yes 10mg Take 10 mg U nivers 20 mg 7-21 by mouth ity of tablet 00:00: daily. [address] FLUoxetine 2020-0 Yes 10mg Take 10 mg U nivers 20 mg 7-21 by mouth ity of tablet 00:00: daily. [address] FLUoxetine 2020-0 Yes 10mg Take 10 mg U nivers 20 mg 7-21 by mouth ity of tablet 00:00: daily. [address] FLUoxetine 2020-0 Yes 10mg Take 10 mg U nivers 20 mg 7-21 by mouth ity of tablet 00:00: daily. [address] FLUoxetine 2020-0 Yes 10mg Take 10 mg U nivers 20 mg 7-21 by mouth ity of tablet 00:00: daily. [address] FLUoxetine 2020-0 Yes 10mg Take 10 mg U nivers 20 mg 7-21 by mouth ity of tablet 00:00: daily. [address] FLUoxetine 2020-0 Yes 10mg Take 10 mg U nivers 20 mg 7-21 by mouth ity of tablet 00:00: daily. [address] FLUoxetine 2020-0 Yes 10mg Take 10 mg U nivers 20 mg 7-21 by mouth ity of tablet 00:00: daily. [place] [facility] Branch FLUoxetine 2021-0 Yes 10mg Take 10 mg U nivers 20 mg 7-21 by mouth ity of tablet 00:00: daily. [place] [facility] Branch FLUoxetine 2021-0 Yes 10mg Take 10 mg U nivers 20 mg 7-21 by mouth ity of tablet 00:00: daily. [facility] Branch FLUoxetine 2021-0 Yes 10mg Take 10 mg U nivers 20 mg 7-21 by mouth ity of tablet 00:00: daily. [facility] Branch FLUoxetine 2021-0 Yes 10mg Take 10 mg U nivers 20 mg 7-21 by mouth ity of tablet 00:00: daily. [place] [facility] Branch FLUoxetine 2021-0 Yes 10mg Take 0.5 Uni vers 20 mg 7-21 tablets by ity of tablet 00:00: mouth in [place] the Medical morning. Branch Takes at night per patient FLUoxetine 2021-0 Yes 10mg Take 0.5 Uni vers 20 mg 7-21 tablets by ity of tablet 00:00: mouth in [place] the Medical morning. Branch Takes at night per patient FLUoxetine 1-0 Yes 10mg Take 0.5 Uni vers 20 mg 7-21 tablets by ity of tablet 00:00: mouth in [place] the Medical morning. Branch Takes at night per patient FLUoxetine 2021-0 Yes 10mg Take 0.5 Uni vers 20 mg 7-21 tablets by ity of tablet 00:00: mouth in [place] the Medical morning. Branch Takes at night per patient FLUoxetine 2021-0 Yes 10mg Take 0.5 Uni vers 20 mg 7-21 tablets by ity of tablet 00:00: mouth in [place] the Medical morning. Branch Takes at night per patient FLUoxetine 2021-0 Yes 10mg Take 0.5 Uni vers 20 mg 7-21 tablets by ity of tablet 00:00: mouth in [place] the Medical morning. Branch Takes at night per patient FLUoxetine 2021-0 Yes 10mg Take 0.5 Uni vers 20 mg 7-21 tablets by ity of tablet 00:00: mouth in [place] the Medical morning. Branch Takes at night per patient FLUoxetine 2021-0 Yes 10mg Take 0.5 Uni vers 20 mg 7-21 tablets by ity of tablet 00:00: mouth in [place] the Medical morning. Branch Takes at night per patient FLUoxetine 2021-0 Yes 10mg Take 0.5 Uni vers 20 mg 7-21 tablets by ity of tablet 00:00: mouth in [place] the morning. Branch Takes at night per patient FLUoxetine 2021-0 Yes 10mg Take 0.5 Uni vers 20 mg 7-21 tablets by ity of tablet 00:00: mouth in [place] the morning. Branch Takes at night per patient FLUoxetine 2021-0 Yes 10mg Take 0.5 Uni vers 20 mg 7-21 tablets by ity of tablet 00:00: mouth in [place] the morning. Branch Takes at night per patient FLUoxetine 2021-0 Yes 10mg Take 0.5 Uni vers 20 mg 7-21 tablets by ity of tablet 00:00: mouth in [place] the morning. Branch Takes at night per patient FLUoxetine 2021-0 Yes 10mg Take 0.5 Uni vers 20 mg 7-21 tablets by ity of tablet 00:00: mouth in [place] the Medical morning. Branch Takes at night per patient FLUoxetine 2021-0 Yes 10mg Take 0.5 Uni vers 20 mg 7-21 tablets by ity of tablet 00:00: mouth in [place] the morning. Branch Takes at night per patient FLUoxetine 2021-0 Yes 10mg Take 0.5 Uni vers 20 mg 7-21 tablets by ity of tablet 00:00: mouth in [place] the morning. Branch Takes at night per patient FLUoxetine 2021-0 Yes 10mg Take 0.5 Uni vers 20 mg 7-21 tablets by ity of tablet 00:00: mouth in [place] the morning. Branch Takes at night per patient FLUoxetine 2021-0 Yes 10mg Take 0.5 Uni vers 20 mg 7-21 tablets by ity of tablet 00:00: mouth in [place] the morning. Branch Takes at night per patient FLUoxetine 2021-0 Yes 10mg Take 10 mg U nivers 20 mg 7-21 by mouth ity of tablet 00:00: daily. [facility] Branch FLUoxetine 2021-0 Yes 10mg Take 10 mg U nivers 20 mg 7-21 by mouth ity of tablet 00:00: daily. [place] [facility] FLUoxetine 2021-0 Yes 10mg Take 10 mg U nivers 20 mg 7-21 by mouth ity of tablet 00:00: daily. [place] [facility] FLUoxetine 2021-0 Yes 10mg Take 10 mg U nivers 20 mg 7-21 by mouth ity of tablet 00:00: daily. [address] FLUoxetine 2021-0 Yes 10mg Take 10 mg U nivers 20 mg 7-21 by mouth ity of tablet 00:00: daily. [address] FLUoxetine 2021-0 Yes 10mg Take 10 mg U nivers 20 mg 7-21 by mouth ity of tablet 00:00: daily. [address] FLUoxetine 2021-0 Yes 10mg Take 10 mg U nivers 20 mg 7-21 by mouth ity of tablet 00:00: daily. [address] FLUoxetine 2021-0 Yes 10mg Take 10 mg U nivers 20 mg 7-21 by mouth ity of tablet 00:00: daily. [address] FLUoxetine 2021-0 Yes 10mg Take 10 mg U nivers 20 mg 7-21 by mouth ity of tablet 00:00: daily. [address] FLUoxetine 2021-0 Yes 10mg Take 10 mg U nivers 20 mg 7-21 by mouth ity of tablet 00:00: daily. [address] FLUoxetine 2021-0 Yes 10mg Take 10 mg U nivers 20 mg 7-21 by mouth ity of tablet 00:00: daily. [address] FLUoxetine 2021-0 2023- No 10mg Take 0.5 Un [place] 20 mg 7-21 05-11 tablets by ity of tablet 00:00: 00:00 mouth in [place] 00 :00 the Medical morning. Branch Takes at night per patient FLUoxetine 2021-0 2023- No 10mg Take 0.5 Un [place] 20 mg 7-21 05-11 tablets by ity of tablet 00:00: 00:00 mouth in [place] 00 :00 the Medical morning. Branch Takes at night per patient FLUoxetine 2021-0 2023- No 10mg Take 0.5 Un [place] 20 mg 7-21 05-11 tablets by ity of tablet 00:00: 00:00 mouth in [place] 00 :00 the Medical morning. Branch Takes at night per patient FLUoxetine 2021-0 2023- No 10mg Take 0.5 Un [place] 20 mg 7-21 05-11 tablets by ity of tablet 00:00: 00:00 mouth in [place] 00 :00 the Medical morning. Branch Takes at night per patient Levothyroxi Levothyroxi 2016-08 Yes SAYEEDA 1 QD TAKE 1 UT ne Sodium ne Sodium 2-01 BILKIS TABLET BY [facility] 125 MCG 125 MCG 00:00: M.D. MOUTH ONCE a ns Oral Tablet Oral Tablet 00 DAILY due for follow up, LAST REFILL Flonase 50 Flonase 50 Yes QD USE 1 UT MCG/ACT MCG/ACT SPRAY IN [facility] ci SUSP SUSP EACH ans NOSTRIL ONCE DAILY. Symbicort Symbicort Yes Q0.5D INHALE 2 UT 160-4.5 160-4.5 PUFFS [facility] MCG/ACT MCG/ACT TWICE ans Inhalation Inhalation DAILY. Aerosol Aerosol RINSE MOUTH AFTER USE. Spiriva Spiriva Yes QD INHALE UT HandiHaler HandiHaler CONTENTS [facility] 18 MCG 18 MCG OF 1 ans Inhalation Inhalation CAPSULE Capsule Capsule ONCE DAILY. Immunizations Ordered Filled Immunization Date Status Comments [facility] e Immunization Name Name [facility] 2017-01-24 Completed [facility] 00:00:00 [facility] 2017-01-24 Completed University of 00:00: [facility] 2017-01-24 Completed University of 00:00: [facility] 2017-01-24 Completed University of 00:00:00 [facility] 2017-01-24 Completed University of 00:00: [facility] 2017-01-24 Completed University of 00:00: [facility] 2017-01-24 Completed University of 00:00:00 [facility] 2017-01-24 Completed University of 00:00:00 [facility] 2017-01-24 Completed University of 00:00:00 [facility] 2017-01-24 Completed University of 00:00:00 [facility] 2017-01-24 Completed University of 00:00:00 [facility] 2017-01-24 Completed University of 00:00:00 [facility] 2017-01-24 Completed University of 00:00:00 [facility] 2017-01-24 Completed University of 00:00: [facility] 2017-01-24 Completed University of 00:00:00 [facility] 2017-01-24 Completed University of 00:00:00 [facility] 2017-01-24 Completed University of 00:00:00 [facility] 2017-01-24 Completed University of 00:00:00 [facility] TDAP 2017-01-24 Completed University of 00:00:00 [place] [facility] TDAP 2017-01-24 Completed University of 00:00:00 [place] [facility] TDAP 2017-01-24 Completed University of 00:00:00 [facility] TDAP 2017-01-24 Completed University of 00:00:00 [facility] TDAP 2017-01-24 Completed University of 00:00:00 [place] [facility] TDAP 2017-01-24 Completed University of 00:00:00 [place] [facility] TDAP 2017-01-24 Completed University of 00:00:00 [facility] TDAP 2017-01-24 Completed University of 00:00:00 [facility] TDAP 2017-01-24 Completed University of 00:00:00 [facility] TDAP 2017-01-24 Completed University of 00:00:00 [facility] TDAP 2017-01-24 Completed University of 00:00:00 [facility] Branch TDAP 2017-01-24 Completed University of 00:00:00 [facility] TDAP 2017-01-24 Completed University of 00:00:00 [facility] TDAP 2017-01-24 Completed University of 00:00:00 [facility] TDAP 2017-01-24 Completed University of 00:00:00 [facility] TDAP 2017-01-24 Completed University of 00:00:00 [facility] TDAP 2017-01-24 Completed University of 00:00:00 [facility] TDAP 2017-01-24 Completed University of 00:00:00 [facility] TDAP 2017-01-24 Completed University of 00:00:00 [facility] TDAP 2017-01-24 Completed University of 00:00:00 [facility] TDAP 2017-01-24 Completed University of 00:00:00 [facility] TDAP 2017-01-24 Completed University of 00:00:00 [facility] TDAP 2017-01-24 Completed University of 00:00:00 [facility] TDAP 2017-01-24 Completed University of 00:00:00 [facility] TDAP 2017-01-24 Completed University of 00:00:00 [facility] TDAP 2017-01-24 Completed University of 00:00:00 [facility] TDAP 2017-01-24 Completed University of 00:00:00 [facility] TDAP 2017-01-24 Completed University of 00:00:00 [place] [facility] TDAP 2017-01-24 Completed University of 00:00:00 [place] [facility] TDAP 2017-01-24 Completed University of 00:00:00 [place] [facility] TDAP 2017-01-24 Completed University of 00:00:00 [facility] TDAP 2017-01-24 Completed University of 00:00:00 [facility] TDAP 2017-01-24 Completed University of 00:00:00 [place] [facility] TDAP 2017-01-24 Completed University of 00:00:00 [place] [facility] TDAP 2017-01-24 Completed University of 00:00:00 [place] [facility] TDAP 2017-01-24 Completed University of 00:00:00 [place] [facility] TDAP 2017-01-24 Completed University of 00:00:00 [facility] TDAP 2017-01-24 Completed University of 00:00:00 [facility] TDAP 2017-01-24 Completed University of 00:00:00 [facility] TDAP 2017-01-24 Completed University of 00:00:00 [facility] TDAP 2017-01-24 Completed University of 00:00:00 [facility] TDAP 2017-01-24 Completed University of 00:00:00 [facility] TDAP 2017-01-24 Completed University of 00:00:00 [facility] TDAP 2017-01-24 Completed University of 00:00:00 [facility] TDAP 2017-01-24 Completed [facility] 00:00:00 [facility] TDAP 2017-01-24 Completed [facility] 00:00:00 [facility] TDAP 2017-01-24 Completed [facility] 00:00:00 [facility] TDAP 2017-01-24 Completed [facility] 00:00:00 [facility] TDAP 2017-01-24 Completed [facility] 00:00:00 [facility] TDAP 2017-01-24 Completed [facility] 00:00:00 [facility] TDAP 2017-01-24 Completed [facility] 00:00:00 [facility] TDAP 2017-01-24 Completed [facility] 00:00:00 [facility] TDAP 2017-01-24 Completed [facility] 00:00:00 [facility] TDAP 2017-01-24 Completed [facility] 00:00:00 [facility] TDAP 2017-01-24 Completed [facility] 00:00:00 [facility] TDAP 2017-01-24 Completed [facility] 00:00:00 [facility] TDAP 2017-01-24 Completed [facility] 00[facility]00:00 [facility] TDAP 2017-01-24 Completed [facility] 00:00:00 [facility] TDAP 2017-01-24 Completed [facility] 00:00:00 [facility] TDAP 2017-01-24 Completed [facility] 00:00:00 [facility] TDAP 2017-01-24 Completed [facility] 00:00:00 [facility] TDAP 2017-01-24 Completed [facility] 00:00:00 [facility] TDAP 2017-01-24 Completed [facility] 00:00:00 [facility] TDAP 2017-01-24 Completed [facility] 00:00:00 [facility] TDAP 2017-01-24 Completed [facility] 00:00:00 [facility] TDAP 2017-01-24 Completed [facility] 00:00:00 [facility] TDAP 2017-01-24 Completed [facility] 00:00:00 [facility] TDAP 2017-01-24 Completed [facility] 00:00:00 [facility] TDAP 2017-01-24 Completed [facility] 00:00:00 [facility] TDAP 2017-01-24 Completed [facility] 00:00:00 [facility] TDAP 2017-01-24 Completed [facility] 00:00:00 [facility] TDAP 2017-01-24 Completed [facility] 00:00:00 [facility] TDAP 2017-01-24 Completed [facility] 00:00:00 [facility] TDAP 2017-01-24 Completed [facility] 00:00:00 [facility] TDAP 2017-01-24 Completed [facility] 00:00:00 [facility] TDAP 2017-01-24 Completed [facility] 00:00:00 [facility] TDAP 2017-01-24 Completed [facility] 00:00:00 [facility] TDAP 2017-01-24 Completed [facility] 00:00:00 [facility] TDAP 2017-01-24 Completed [facility] 00:00:00 [facility] TDAP 2017-01-24 Completed [facility] 00:00:00 [facility] TDAP 2017-01-24 Completed [facility] 00:00:00 [facility] TDAP 2017-01-24 Completed [facility] 00:00:00 [facility] TDAP 2017-01-24 Completed [facility] 00:00:00 [facility] TDAP 2017-01-24 Completed [facility] 00:00:00 [facility] TDAP 2017-01-24 Completed [facility] 00:00:00 [facility] TDAP 2010-08-07 Completed [facility] 00:00:00 [facility] TDAP 2010-08-07 Completed [facility] 00:00:00 [facility] TDAP 2010-08-07 Completed [facility] 00:00:00 [facility] TDAP 2010-08-07 Completed [facility] 00:00:00 [facility] TDAP 2010-08-07 Completed [facility] 00:00:00 [facility] TDAP 2010-08-07 Completed [facility] 00:00:00 [facility] TDAP 2010-08-07 Completed [facility] 00:00:00 [facility] TDAP 2010-08-07 Completed [facility] 00:00:00 [facility] TDAP 2010-08-07 Completed [facility] 00:00:00 [facility] TDAP 2010-08-07 Completed [facility] 00:00:00 [facility] TDAP 2010-08-07 Completed [facility] 00:00:00 [facility] TDAP 2010-08-07 Completed [facility] 00:00:00 [facility] TDAP 2010-08-07 Completed [facility] 00:00:00 [facility] TDAP 2010-08-07 Completed [facility] 00:00:00 [facility] TDAP 2010-08-07 Completed [facility] 00:00:00 [facility] TDAP 2010-08-07 Completed [facility] 00:00:00 [facility] TDAP 2010-08-07 Completed [facility] 00:00:00 [facility] TDAP 2010-08-07 Completed [facility] 00:00:00 [facility] TDAP 2010-08-07 Completed [facility] 00:00:00 [facility] TDAP 2010-08-07 Completed [facility] 00:00:00 [facility] TDAP 2010-08-07 Completed [facility] 00:00:00 [facility] TDAP 2010-08-07 Completed [facility] 00:00:00 [facility] TDAP 2010-08-07 Completed [facility] 00:00:00 [facility] TDAP 2010-08-07 Completed [facility] 00:00:00 [facility] TDAP 2010-08-07 Completed [facility] 00:00:00 [facility] TDAP 2010-08-07 Completed [facility] 00:00:00 [facility] TDAP 2010-08-07 Completed [facility] 00:00:00 [facility] TDAP 2010-08-07 Completed [facility] 00:00:00 [facility] TDAP 2010-08-07 Completed [facility] 00:00:00 [facility] TDAP 2010-08-07 Completed [facility] 00:00:00 [facility] TDAP 2010-08-07 Completed [facility] 00:00:00 [facility] TDAP 2010-08-07 Completed [facility] 00:00:00 [facility] TDAP 2010-08-07 Completed [facility] 00:00:00 [facility] TDAP 2010-08-07 Completed [facility] 00:00:00 [facility] TDAP 2010-08-07 Completed [facility] 00:00:00 [facility] TDAP 2010-08-07 Completed [facility] 00:00:00 [facility] TDAP 2010-08-07 Completed [facility] 00:00:00 [facility] TDAP 2010-08-07 Completed [facility] 00:00:00 [facility] TDAP 2010-08-07 Completed [facility] 00:00:00 [facility] TDAP 2010-08-07 Completed [facility] 00:00:00 [facility] TDAP 2010-08-07 Completed [facility] 00:00:00 [facility] TDAP 2010-08-07 Completed [facility] 00:00:00 [facility] TDAP 2010-08-07 Completed [facility] 00:00:00 [facility] TDAP 2010-08-07 Completed [facility] 00:00:00 [facility] TDAP 2010-08-07 Completed [facility] 00:00:00 [facility] TDAP 2010-08-07 Completed [facility] 00:00:00 [facility] TDAP 2010-08-07 Completed [facility] 00:00:00 [facility] TDAP 2010-08-07 Completed [facility] 00:00:00 [facility] TDAP 2010-08-07 Completed [facility] 00:00:00 [facility] TDAP 2010-08-07 Completed [facility] 00:00:00 [facility] TDAP 2010-08-07 Completed [facility] 00:00:00 [facility] TDAP 2010-08-07 Completed [facility] 00:00:00 [facility] TDAP 2010-08-07 Completed [facility] 00:00:00 [facility] TDAP 2010-08-07 Completed [facility] 00:00:00 [facility] TDAP 2010-08-07 Completed [facility] 00:00:00 [facility] TDAP 2010-08-07 Completed [facility] 00:00:00 [facility] TDAP 2010-08-07 Completed [facility] 00:00:00 [facility] TDAP 2010-08-07 Completed [facility] 00:00:00 [facility] TDAP 2010-08-07 Completed [facility] 00:00:00 [facility] TDAP 2010-08-07 Completed [facility] 00:00:00 [facility] TDAP 2010-08-07 Completed [facility] 00:00:00 [facility] TDAP 2010-08-07 Completed [facility] 00:00:00 [facility] TDAP 2010-08-07 Completed [facility] 00:00:00 [facility] TDAP 2010-08-07 Completed [facility] 00:00:00 [facility] TDAP 2010-08-07 Completed [facility] 00:00:00 [facility] TDAP 2010-08-07 Completed [facility] 00:00:00 [facility] TDAP 2010-08-07 Completed [facility] 00:00:00 [facility] TDAP 2010-08-07 Completed [facility] 00:00:00 [facility] TDAP 2010-08-07 Completed [facility] 00:00:00 [facility] TDAP 2010-08-07 Completed [facility] 00:00:00 [facility] TDAP 2010-08-07 Completed [facility] 00:00:00 [facility] TDAP 2010-08-07 Completed [facility] 00:00:00 [facility] TDAP 2010-08-07 Completed [facility] 00:00:00 [facility] TDAP 2010-08-07 Completed [facility] 00:00:00 [facility] TDAP 2010-08-07 Completed [facility] 00:00:00 [facility] TDAP 2010-08-07 Completed [facility] 00:00:00 [facility] TDAP 2010-08-07 Completed [facility] 00:00:00 [facility] TDAP 2010-08-07 Completed [facility] 00:00:00 [facility] TDAP 2010-08-07 Completed [facility] 00:00:00 [facility] TDAP 2010-08-07 Completed [facility] 00:00:00 [facility] TDAP 2010-08-07 Completed [facility] 00:00:00 [facility] TDAP 2010-08-07 Completed [facility] 00:00:00 [facility] TDAP 2010-08-07 Completed [facility] 00:00:00 [facility] TDAP 2010-08-07 Completed [facility] 00:00:00 [facility] TDAP 2010-08-07 Completed [facility] 00:00:00 [facility] TDAP 2010-08-07 Completed [facility] 00:00:00 [facility] TDAP 2010-08-07 Completed [facility] 00:00:00 [facility] TDAP 2010-08-07 Completed [facility] 00:00:00 [facility] TDAP 2010-08-07 Completed [facility] 00:00:00 [facility] TDAP 2010-08-07 Completed [facility] 00:00:00 [facility] TDAP 2010-08-07 Completed [facility] 00:00:00 [facility] TDAP 2010-08-07 Completed [facility] 00:00:00 [facility] TDAP 2010-08-07 Completed [facility] 00:00:00 [facility] TDAP 2010-08-07 Completed [facility] 00:00:00 [facility] TDAP 2010-08-07 Completed [facility] 00:00:00 [facility] TDAP 2010-08-07 Completed [facility] 00:00:00 [facility] TDAP 2010-08-07 Completed [facility] 00:00:00 [facility] TDAP 2010-08-07 Completed [facility] 00:00:00 [facility] TDAP 2010-08-07 Completed [facility] 00:00:00 [facility] TDAP 2010-08-07 Completed [facility] 00:00:00 [facility] TDAP 2010-08-07 Completed [facility] 00:00:00 [facility] TDAP 2010-08-07 Completed [facility] 00:00:00 [facility] TDAP 2010-08-07 Completed [facility] 00:00:00 [facility] Vital Signs Vital Name Observation Time Observation Value Comments Source Systolic blood 2022-12-15 138 mm[Hg] [facility] pressure 13:12:00 [facility] Diastolic blood 2022-12-15 89 mm[Hg] [facility] pressure 13:12:00 [facility] Heart rate 2022-12-15 89 /min [facility] 13:11:00 [facility] Body temperature 2022-12-15 36.72 Diane [facility] 13:11:00 [facility] Respiratory rate 2022-12-15 16 /min [facility] 13:11:00 [facility] Body height 2022-12-15 167.6 cm [facility] 13:11:00 [facility] Body weight 2022-12-15 102.286 kg [facility] 13:11:00 [facility] BMI 2022-12-15 36.40 kg/m2 [facility] 13:11:00 [facility] Oxygen saturation 2022-12-15 98 /min [facility] in Arterial blood 13:11:00 [facility] Pulse oxim[facility] Systolic blood 2022-12-06 145 mm[Hg] Pt in severe University of pressure 15:20:00 pain, no [facility] Diastolic blood 2022-12-06 88 mm[Hg] Pt in severe University o f pressure 15:20:00 pain, no [facility] Heart rate 2022-12-06 99 /min [facility] 15:20:00 [facility] Respiratory rate 2022-12-06 12 /min [facility] 15:20:00 [facility] Body height 2022-12-06 165.1 cm [facility] 15:20:00 [facility] Body weight 2022-12-06 101.606 kg [facility] 15:20:00 [facility] BMI 2022-12-06 37.28 kg/m2 [facility] 15:20:00 [facility] Oxygen saturation 2022-12-06 99 /min [facility] in Arterial blood 15:20:00 [facility] ben[facility]ie by Pulse oximetry [facility] Systolic blood 2022-11-16 141 mm[Hg] [facility] pressure 17:01:00 [facility] Diastolic blood 2022-11-16 98 mm[Hg] [facility] o [facility] pressure 17:01:00 [facility] Heart rate 2022-11-16 103 /min [facility] 16:57:00 [facility] Body temperature 2022-11-16 36.72 Diane [facility] 16:57:00 [facility] Respiratory rate 2022-11-16 17 /min [facility] 16:57:00 [facility] Body height 2022-11-16 165.1 cm [facility] 16:57:00 [facility] Body weight 2022-11-16 100.381 kg [facility] of 16:57:00 [facility] BMI 2022-11-16 36.83 kg/m2 [facility] 16:57:00 [facility] Oxygen saturation 2022-11-16 97 /min [facility] in Arterial blood 16:57:00 [facility] benjie by Pulse oximetry [facility] Systolic blood 2022-11-03 147 mm[Hg] [facility] pressure 15:04:00 [facility] Diastolic blood 2022-11-03 104 mm[Hg] [facility] o f pressure 15:04:00 [facility] Heart rate 2022-11-03 99 /min [facility] 15:03:00 [facility] Body temperature 2022-11-03 36.39 Diane [facility] 15:03:00 [facility] Body height 2022-11-03 167.6 cm [facility] 15:03:00 [facility] Body weight 2022-11-03 99.882 kg [facility] of 15:03:00 [facility] BMI 2022-11-03 35.54 kg/m2 [facility] 15::00 [facility] Oxygen saturation 2022-11-03 99 /min [facility] in Arterial blood 15:03:00 [facility] by Pulse oximetry [facility] Systolic blood 2022-10-18 120 mm[Hg] [facility] pressure 19:16:00 [facility] Diastolic blood 2022-10-18 77 mm[Hg] [facility] o f pressure 19:16:00 [facility] Heart rate 2022-10-18 100 /min [facility] 19:16:00 [facility] Respiratory rate 2022-10-18 12 /min [facility] 19:16:00 [facility] Body height 2022-10-18 167.6 cm [facility] 19:16:00 [facility] Body weight 2022-10-18 100.245 kg [facility] of 19:16:00 [facility] BMI 2022-10-18 35.67 kg/m2 [facility] 19:16:00 [facility] Oxygen saturation 2022-10-18 98 /min [facility] in Arterial blood 19:16:00 [facility]ie by Pulse oximetry [facility] Systolic blood 2022-10-15 152 mm[Hg] [facility] pressure 21:53:00 [facility] Diastolic blood 2022-10-15 87 mm[Hg] University o f pressure 21:53:00 [facility] Heart rate 2022-10-15 105 /min [facility] 21:53:00 [facility] Body temperature 2022-10-15 36.17 Diane [facility] 21:53:00 [facility] Respiratory rate 2022-10-15 19 /min [facility] 21:53:00 [facility] Oxygen saturation 2022-10-15 92 /min [facility] in Arterial blood 21:53:00 [facility]ie by Pulse oximetry [facility] Body height 2022-10-15 167.6 cm [facility] 01:50:00 [facility] Body weight 2022-10-15 100.245 kg [facility] of 01:50:00 [facility] BMI 2022-10-15 35.67 kg/m2 [facility] 01:50:00 [facility] Systolic blood 2022-10-14 134 mm[Hg] [facility] pressure 14:52:00 [facility] Diastolic blood 2022-10-14 88 mm[Hg] [facility] pressure 14:52:00 [facility] Heart rate 2022-10-14 101 /min [facility] 14:52:00 [facility] Body height 2022-10-14 167.6 cm [facility] 14:51:00 [facility] Body weight 2022-10-14 100.562 kg [facility] of 14:51:00 [facility] BMI 2022-10-14 35.78 kg/m2 [facility] 14:51:00 [facility] Systolic blood 2022-09-21 121 mm[Hg] [facility] pressure 20:27:00 [facility] Diastolic blood 2022-09-21 82 mm[Hg] [facility] o [facility] pressure 20:27:00 [facility] Heart rate 2022-09-21 105 /min [facility] 20:27:00 [facility] Body height 2022-09-21 167.6 cm [facility] of 20:27:00 [facility] Body weight 2022-09-21 101.152 kg [facility] of 20:27:00 [facility] BMI 2022-09-21 35.99 kg/m2 [facility] of 20:27:00 [facility] Oxygen saturation 2022-09-21 97 /min [facility] in Arterial blood 20:27:00 [place] [facility] Body height 2022-09-05 167.6 cm [facility] 16:44:00 [facility] Body weight 2022-09-05 101.152 kg [facility] of 16:44:00 [facility] BMI 2022-09-05 35.99 kg/m2 [facility] 16:44:00 [facility] Systolic blood 2022-09-02 113 mm[Hg] [facility] pressure 19:15:00 [facility] Diastolic blood 2022-09-02 77 mm[Hg] [facility] o f pressure 19:15:00 [facility] Heart rate 2022-09-02 101 /min [facility] 19:15:00 [facility] Body temperature 2022-09-02 36.72 Diane [facility] 19:15:00 [facility] Body height 2022-09-02 165.1 cm [facility] 19:15:00 [facility] Body weight 2022-09-02 101.424 kg University of 19:15:00 [facility] BMI 2022-09-02 37.21 kg/m2 University of 19:15:00 [facility] Oxygen saturation 2022-09-02 96 /min [facility] in Arterial blood 19:15:00 [facility] by Pulse oximetry [place] Body height 2022-08-18 165.1 cm University of 18:06:00 [facility] Body weight 2022-08-18 99.338 kg University of 18:06:00 [facility] BMI 2022-08-18 36.44 kg/m2 University of 18:06:00 [facility] Body height 2022-08-04 167.6 cm University of 15:56:00 [facility] Body weight 2022-08-04 99.791 kg University of 15:56:00 [facility] BMI 2022-08-04 35.51 kg/m2 University of 15:56:00 [facility] Body height 2022-07-25 167.6 cm [facility] 17:38:00 [facility] Body weight 2022-07-25 99.791 kg University of 17:38:00 [facility] BMI 2022-07-25 35.51 kg/m2 [facility] 17:38:00 [facility] Systolic blood 2022-07-12 104 mm[Hg] [facility] pressure 22:02:00 [facility] Diastolic blood 2022-07-12 66 mm[Hg] [facility] o [facility] pressure 22:02:00 [facility] Heart rate 2022-07-12 102 /min [facility] 22:02:00 [facility] Body temperature 2022-07-12 36.89 Diane [facility] 22:02:00 [facility] Respiratory rate 2022-07-12 20 /min [facility] 22:02:00 [facility] Oxygen saturation 2022-07-12 96 /min [place] [facility] in Arterial blood 22:02:00 [facility] by Pulse oximetry [place] Body height 2022-07-11 167.6 cm University of 12:30:00 [facility] Body weight 2022-07-11 100.2 kg University of 12:30:00 [facility] BMI 2022-07-11 35.65 kg/m2 University of 12:30:00 [facility] Systolic blood 2022-07-11 143 mm[Hg] [facility] pressure 12:30:00 [facility] Diastolic blood 2022-07-11 84 mm[Hg] [place] [facility] pressure 12:30:00 [facility] Heart rate 2022-07-11 110 /min [facility] 12:30:00 [facility] Body temperature 2022-07-11 36.56 Diane [facility] 12:30:00 [facility] Respiratory rate 2022-07-11 21 /min [facility] 12:30:00 [facility] Body height 2022-07-11 167.6 cm [facility] of 12:30:00 [facility] Body weight 2022-07-11 100.2 kg University of 12:30:00 [facility] BMI 2022-07-11 35.65 kg/m2 University of 12:30:00 [facility] Oxygen saturation 2022-07-11 97 /min [facility] in Arterial blood 12:30:00 [facility] by Pulse oximetry [place] Body height 2022-07-07 167.6 cm University of 20:33:00 [facility] Body weight 2022-07-07 99.338 kg University of 20:33:00 [facility] BMI 2022-07-07 35.35 kg/m2 [facility] of 20:33:00 [facility] Body height 2022-07-07 167.6 cm [facility] 19:01:00 [facility] Body weight 2022-07-07 99.338 kg [facility] of 19:01:00 [facility] BMI 2022-07-07 35.35 kg/m2 University of 19:01:00 [facility] Respiratory rate 2022-06-27 18 /min [facility] 18:18:00 [facility] Body height 2022-06-27 167.6 cm [facility] 18:18:00 [facility] Body weight 2022-06-27 98.431 kg [facility] of 18:18:00 [facility] BMI 2022-06-27 35.02 kg/m2 University of 18:18:00 [facility] Systolic blood 2022-06-21 126 mm[Hg] [facility] pressure 19:41:00 [facility] Diastolic blood 2022-06-21 81 mm[Hg] University o f pressure 19:41:00 [facility] Heart rate 2022-06-21 101 /min [facility] 19:41:00 [facility] Body height 2022-06-21 167.6 cm [facility] 19:41:00 [facility] Body weight 2022-06-21 98.431 kg University of 19:41:00 [facility] BMI 2022-06-21 35.02 kg/m2 University of 19:41:00 [facility] Oxygen saturation 2022-06-21 98 /min University in Arterial blood 19:41:00 [facility] by Pulse oximetry [place] Systolic blood 2022-06-17 124 mm[Hg] [facility] of pressure 20:04:00 [facility] Diastolic blood 2022-06-17 86 mm[Hg] [facility] o f pressure 20:04:00 [facility] Heart rate 2022-06-17 114 /min [facility] 20:04:00 [facility] Body temperature 2022-06-17 36.67 Diane [facility] 20:04:00 [facility] Body height 2022-06-17 167.6 cm [facility] 20:04:00 [facility] Body weight 2022-06-17 98.431 kg University of 20:04:00 [facility] BMI 2022-06-17 35.02 kg/m2 University of 20:04:00 [facility] Systolic blood 2022-06-13 137 mm[Hg] [facility] pressure 15:30:00 [facility] Diastolic blood 2022-06-13 89 mm[Hg] [facility] o f pressure 15:30:00 [facility] Heart rate 2022-06-13 100 /min [facility] 15:30:00 [facility] Body temperature 2022-06-13 36.39 Diane [facility] 15:23:00 [facility] Respiratory rate 2022-06-13 18 /min [facility] 15:23:00 [facility] Body height 2022-06-13 167.6 cm [facility] of 15:23:00 [facility] Body weight 2022-06-13 99.61 kg University of 15:23:00 [facility] BMI 2022-06-13 35.44 kg/m2 University of 15:23:00 [facility] Oxygen saturation 2022-06-13 98 /min [facility] in Arterial blood 15:23:00 [facility] by Pulse oximetry Branch Systolic blood 2022-06-06 121 mm[Hg] University of pressure 16:27:00 [facility] Diastolic blood 2022-06-06 78 mm[Hg] University o f pressure 16:27:00 [facility] Heart rate 2022-06-06 100 /min University of 16:27:00 [facility] Body temperature 2022-06-06 36.94 Diane University of 16:27:00 [facility] Respiratory rate 2022-06-06 18 /min University of 16::00 [facility] Oxygen saturation 2022-06-06 95 /min University of in Arterial blood 16:27:00 [facility] by Pulse oximetry Branch Body weight 2022-06-05 99.338 kg University of 12:45:00 [facility] BMI 2022-06-05 35.35 kg/m2 University of 12:45:00 [facility] Systolic blood 2022-06-04 154 mm[Hg] University of pressure 17:55:00 [facility] Diastolic blood 2022-06-04 99 mm[Hg] University o f pressure 17:55:00 [facility] Heart rate 2022-06-04 102 /min University of 17:55:00 [facility] Body temperature 2022-06-04 36.78 Diane University of 17:55:00 [facility] Respiratory rate 2022-06-04 20 /min University of 17:55:00 [facility] Oxygen saturation 2022-06-04 99 /min University of in Arterial blood 17:55:00 [facility] by Pulse oximetry Branch Body height 2022-06-02 167.6 cm University of 15:26:00 [facility] Body weight 2022-06-02 99.338 kg University of 15::00 [facility] BMI 2022-06-02 35.35 kg/m2 University of 15:26:00 [facility] Systolic blood 2022-06-03 141 mm[Hg] University of pressure 18:45:00 [facility] Diastolic blood 2022-06-03 82 mm[Hg] University o f pressure 18:45:00 [facility] Heart rate 2022-06-03 94 /min University of 18:45:00 [facility] Respiratory rate 2022-06-03 15 /min University of 18:45:00 [facility] Body temperature 2022-06-03 36.67 Diane University of 18:15:00 [facility] Oxygen saturation 2022-06-03 97 /min University of in Arterial blood 18:00:00 [facility] by Pulse oximetry Branch Body height 2022-06-02 167.6 cm University of 15:26:00 [place] [facility] [place] Body weight 2022-06-02 99.338 kg University of 15:26:00 [facility] BMI 2022-06-02 35.35 kg/m2 University of 15:26:00 [facility] Systolic blood 2022-05-28 153 mm[Hg] University of pressure 00:41:00 [facility] Diastolic blood 2022-05-28 96 mm[Hg] University o f pressure 00:41:00 [facility] Heart rate 2022-05-28 110 /min University of 00:41:00 [facility] Body temperature 2022-05-28 36.67 Diane University of 00:41:00 [facility] Respiratory rate 2022-05-28 22 /min University of 00:41:00 [facility] Body weight 2022-05-28 95.255 kg University of 00:41:00 [facility] BMI 2022-05-28 33.89 kg/m2 University of 00:41:00 [facility] Oxygen saturation 2022-05-28 99 /min University of in Arterial blood 00:41:00 [facility] by Pulse oximetry Branch Systolic blood 2022-05-27 134 mm[Hg] University of pressure 20:16:00 [facility] Diastolic blood 2022-05-27 89 mm[Hg] University o f pressure 20:16:00 [facility] Heart rate 2022-05-27 109 /min University of 20:16:00 [facility] Body temperature 2022-05-27 36.72 Diane University of 20:16:00 [facility] Respiratory rate 2022-05-27 20 /min University of 20:16:00 [facility] Body weight 2022-05-27 99.338 kg University of 20:16:00 [facility] BMI 2022-05-27 35.35 kg/m2 University of 20:16:00 [facility] Oxygen saturation 2022-05-27 98 /min University of in Arterial blood 20:16:00 [facility] benjie by Pulse oximetry Branch Systolic blood 2022-05-18 139 mm[Hg] University of pressure 16:22:00 [facility] Diastolic blood 2022-05-18 86 mm[Hg] University o f pressure 16:22:00 [facility] Heart rate 2022-05-18 96 /min University of 16:22:00 [facility] Body temperature 2022-05-18 36.5 Diane University of 16:22:00 [facility] Respiratory rate 2022-05-18 17 /min University of 16:22:00 [facility] Body weight 2022-05-18 99.746 kg University of 16:22:00 [facility] BMI 2022-05-18 35.49 kg/m2 University of 16:22:00 [facility] Oxygen saturation 2022-05-18 97 /min University of in Arterial blood 16:22:00 [facility] by Pulse oximetry Branch Systolic blood 2022-05-15 120 mm[Hg] University of pressure 17:21:00 [facility] Diastolic blood 2022-05-15 78 mm[Hg] University o f pressure 17:21:00 [facility] Heart rate 2022-05-15 87 /min University of 17:21:00 [facility] Body temperature 2022-05-15 36.67 Diane University of 17:21:00 [facility] Respiratory rate 2022-05-15 17 /min University of 17:21:00 [facility] Oxygen saturation 2022-05-15 98 /min University of in Arterial blood 17:21:00 [facility] by Pulse oximetry Branch Body height 2022-05-11 167.6 cm University of 22:13:00 [facility] Body weight 2022-05-11 97.977 kg University of 22:13:00 [facility] BMI 2022-05-11 34.86 kg/m2 University of 22:13:00 [facility] Systolic blood 2022-05-11 159 mm[Hg] University of pressure 12:41:00 [facility] Diastolic blood 2022-05-11 92 mm[Hg] University o f pressure 12:41:00 [facility] Heart rate 2022-05-11 99 /min University of 12:41:00 [facility] Body temperature 2022-05-11 36.56 Diane University of 12:41:00 [facility] Respiratory rate 2022-05-11 20 /min University of 12:41:00 [facility] Body height 2022-05-11 167.6 cm University of 12:41:00 [facility] Body weight 2022-05-11 98.2 kg University of 12:41:00 [facility] BMI 2022-05-11 34.86 kg/m2 University of 12:41:00 [facility] Oxygen saturation 2022-05-11 97 /min University of in Arterial blood 12:41:00 [place] [facility] by Pulse oximetry [place] Body height 2022-05-09 167.6 cm University of 14:54:00 [facility] Body height 2022-05-06 167.6 cm University of 18:05:00 [facility] Body weight 2022-05-06 99.338 kg University of 18:05:00 [facility] BMI 2022-05-06 35.35 kg/m2 University of 18:05:00 [facility] Body height 2022-04-25 167.6 cm University of 17:18:00 [facility] Body weight 2022-04-25 99.338 kg University of 17:18:00 [facility] BMI 2022-04-25 35.35 kg/m2 University of 17:18:00 [facility] Systolic blood 2022-04-15 136 mm[Hg] University of pressure 18:33:00 [facility] Diastolic blood 2022-04-15 91 mm[Hg] University o f pressure 18:33:00 [facility] Heart rate 2022-04-15 94 /min University of 18:33:00 [facility] Body temperature 2022-04-15 36.72 Diane University of 18:33:00 [facility] Respiratory rate 2022-04-15 16 /min University of 18:33:00 [facility] Body height 2022-04-15 165.1 cm University of 18:33:00 [facility] Body weight 2022-04-15 98.385 kg University of 18:33:00 [facility] BMI 2022-04-15 36.09 kg/m2 University of 18:33:00 [facility] Oxygen saturation 2022-04-15 97 /min University of in Arterial blood 18:33:00 [place] [facility] by Pulse oximetry Branch BP Systolic 2018-03-23 115 mm[Hg] Location: RUE; [facility] 14:57:00 Position: Sitting BP Diastolic 2018-03-23 76 mm[Hg] Location: RUE; [facility] 14:57:00 Position: Sitting Height 2018-03-23 64 [in_us] [facility] 14:57:00 Weight 2018-03-23 216 [lb_av] [facility] 14:57:00 Body Mass Index 2018-03-23 37.08 kg/m2 [facility] Calculated 14:57:00 Heart Rate 2018-03-23 96 /min [facility] 14:57:00 BP Systolic 2017-10-20 127 mm[Hg] Location: RUE; [facility] 13:15:00 Position: Sitting BP Diastolic 2017-10-20 83 mm[Hg] Location: RUE; [facility] 13:15:00 Position: Sitting Height 2017-10-20 64 [in_us] [facility] 13:15:00 Weight 2017-10-20 222 [lb_av] [facility] 13:15:00 Body Mass Index 2017-10-20 38.11 kg/m2 [facility] Calculated 13:15:00 Heart Rate 2017-10-20 102 /min [facility] 13:15:00 BP Systolic 2017-07-13 104 mm[Hg] Location: RUE; [facility] 10:56:00 Position: Sitting BP Diastolic 2017-07-13 69 mm[Hg] Location: RUE; [facility] 10:56:00 Position: Sitting Height 2017-07-13 64 [in_us] [facility] 10:56:00 Weight 2017-07-13 215.2 [lb_av] [facility] 10:56:00 Body Mass Index 2017-07-13 36.94 kg/m2 [facility] Calculated 10:56:00 Heart Rate 2017-07-13 102 /min [facility] 10:56:00 Procedures Procedure Date / Time Performing Clinician Source Performed [place] TIME OR 2023-02-17 18:26:44 Mindi Freeman [facility] (NON-REPORTABLE) Medical Branch XR HIPS 2 VW BILATERAL 2022-12-27 14:19:00 Mindi Freeman [facility] Medical [facility] AUTHORIZATION FOR RELEASE 2022-11-22 05:01:00 Doctor Unassigned, [facility] [place] [facility] BASIC METABOLIC PANEL 2022-10-15 10:31:00 Antonio [facility] (NA, K, CL, CO2, GLUCOSE, Medica l Branch BUN, CREATININE, [place]) CBC WITH DIFF 2022-10-15 10:31:00 Antonio [facility] LUMBAR SPINE WO 2022-10-14 22:00:07 Becka [facility] TEST, SERUM 2022-10-14 18:51:00 Becka [facility] [place] COMP. METABOLIC PANEL 2022-10-14 18:50:00 [facility] ([id number]) Medical [place] CBC WITH DIFF 2022-10-14 18:50[facility] FOR 2022-10-14 18:07:21 Doctor Unaanais, [facility] DIAGNOSIS AND TREATMENT [place] [facility] MR LUMBAR SPINE W WO 2022-10-07 18:08:00 Inna Corley [facility] [place] CONSENT/REFUSAL FOR 2022-10-07 16:19:46 Doctor Unaanais, [facility] DIAGNOSIS AND TREATMENT [place] [facility] AUTHORIZATION FOR RELEASE 2022-08-30 06:01:00 Doctor Marisol [facility] [place] [facility] PATIENT QUESTIONNAIRE 2022-08-02 06:01:00 Doctor Marisol [facility] [place] [facility] AUTHORIZATION FOR RELEASE 2022-07-20 06:01:00 Doctor Marisol [facility] [place] [facility] BASIC METABOLIC PANEL 2022-07-12 09:10:00 Marcos Hamilton [facility] (NA, K, CL, CO2, GLUCOSE, Medica l Branch BUN, CREATININE, CA) CBC WITH DIFF 2022-07-12 09:10:00 Alfonso [facility] BASIC METABOLIC PANEL 2022-07-12 09:10:00 [facility] ([facility], K, CL, CO2, GLUCOSE, Medica l Branch BUN, CREATININE, CA) CBC WITH DIFF 2022-07-12 09:10:00 [facility] 2022-07-11 23:06:00 Devin Perez [facility] TEST, SERUM 2022-07-11 23:06:00 Devin Perez [facility] [place] CEREBRAL SPINAL FLUID 2022-07-11 14:26:00 [facility] Branch SPINE IRRIGATION AND 2022-07-11 14:26:00 Romario [facility] DEBRIDEMENT Medical Branch CEREBRAL SPINAL FLUID 2022-07-11 14:26:00 Romario [facility] LEAK REPAIR Medical Branch SPINE IRRIGATION AND 2022-07-11 14:26:00 Roselyn Doss [facility] DEBRIDEMENT Medical Branch HB ABO GROUPING 2022-07-11 12:46:00 Silvia [facility] HB ABO GROUPING 2022-07-11 12:46:00 Silvia [facility] CONSENT/REFUSAL FOR 2022-07-11 11:59:18 Doctor Unassigned, [facility] DIAGNOSIS AND TREATMENT [place] [facility] CONSENT/REFUSAL FOR 2022-07-11 11:59:18 Doctor Unassigned, [facility] DIAGNOSIS AND TREATMENT [place] [facility] ASSIGNMENT OF BENEFITS 2022-07-11 11:57:46 [facility] [place] [facility] ASSIGNMENT OF BENEFITS 2022-07-11 11:57:46 [facility], [facility] [place] [facility] MR LUMBAR SPINE W WO 2022-06-29 22:32:42 Luis Eduardo Govea [facility] CONTRAST [facility] BASIC METABOLIC PANEL 2022-06-06 10:31:00 David Davies [facility] (NA, K, CL, CO2, GLUCOSE, [place] Medica l Branch BUN, CREATININE, CA) CBC WITH DIFF 2022-06-06 10:31:00 David Davies [facility] [place] [facility] BASIC METABOLIC PANEL 2022-06-05 13:39:00 Arturo Leos [facility] (NA, K, CL, CO2, GLUCOSE, Medica l Branch BUN, CREATININE, CA) CBC WITH DIFF 2022-06-05 13:39:00 [facility] FOR 2022-06-05 12:47:31 Doctor Unasstom [facility] DIAGNOSIS AND TREATMENT [place] [facility] LAMINECTOMY LUMBAR 2022-06-03 14:02:00 Roselyn Doss [facility] CLOSURE SURGICAL WOUND 2022-06-03 14:02:00 Roselyn Doss [facility] Branch HB ABO GROUPING 2022-06-03 13:48:[address] [facility] HB ABO GROUPING 2022-06-03 13:48:[address] [facility] PROTHROMBIN TIME / INR 2022-06-03 13:47:[address] [facility] ACTIVATED PARTIAL 2022-06-03 13:47:00 Trudy [facility] PROTHROMBIN TIME / INR 2022-06-03 13:47:[address] [facility] ACTIVATED PARTIAL 2022-06-03 13:47:00 Trudy [facility] BASIC METABOLIC PANEL 2022-06-03 09:32:00 [facility] (NA, K, CL, CO2, GLUCOSE, Medica l Branch BUN, CREATININE, CA) CBC WITH DIFF 2022-06-03 09:32:00 Sol [facility] BASIC METABOLIC PANEL 2022-06-03 09:32:00 Eliceoimmarina [facility] (NA, K, CL, CO2, GLUCOSE, Medica l Branch BUN, CREATININE, CA) CBC WITH DIFF 2022-06-03 09:32:00 Sara [facility] MR LUMBAR SPINE W WO 2022-06-02 21:43:00 Marcos Hamilton [facility] CONTRAST [facility] MR LUMBAR SPINE W WO 2022-06-02 21:43:00 Marcos Hamilton [facility] CONTRAST [facility] Branch CT LUMBAR SPINE WO 2022-06-02 17:15:44 [facility] CT LUMBAR SPINE WO 2022-06-02 17:15:44 [facility] Medical Branch TEST, SERUM 2022-06-02 16:01:00 [facility] COMP. METABOLIC PANEL 2022-06-02 16:01:00 [facility] ([id number]) [facility] CBC WITH DIFF 2022-06-02 16:01:00 [facility] TEST, SERUM 2022-06-02 16:01:00 [facility] COMP. METABOLIC PANEL 2022-06-02 16:01:00 [facility] ([id number]) [facility] CBC WITH DIFF 2022-06-02 16:01:00 [facility] CONSENT/REFUSAL FOR 2022-06-02 15:23:33 Doctor Unaigned, [facility] CONSENT/REFUSAL FOR 2022-06-02 15:23:33 Doctor Unaigned, [facility]IS [facility] 2022-06-02 05:01:00 Doctor Marisol, [facility] AGREEMENTS AND [place] [facility] AUTHORIZATIONS CONSENT/REFUSAL FOR 2022-05-28 00:36:07 Doctor Andersonigned, [facility] DIAGNOSIS AND TREATMENT [place] [facility] MAGNESIUM 2022-05-14 10:25:[address] [facility] BASIC METABOLIC PANEL 2022-05-14 10:25:00 Ale Yao [facility] (NA, K, CL, CO2, GLUCOSE, Medica l Branch BUN, CREATININE, CA) BASIC METABOLIC PANEL 2022-05-12 10:27:00 Mary Jane Key [facility] (NA, K, CL, CO2, GLUCOSE, [facility] Medica l Branch BUN, CREATININE, CA) CBC WITH DIFF 2022-05-12 10:27:00 Philsaint paul Mary Jane [facility] Rama [facility] BASIC METABOLIC PANEL 2022-05-12 10:27:00 Mary Jane Key [facility] (NA, K, CL, CO2, GLUCOSE, [facility] BUN, CREATININE, CA) CBC WITH DIFF 2022-05-12 10:27:00 Mary Jane Key [facility] Rama [facility] [place] TIME OR 2022-05-11 18:27:22 [facility] [place] TIME OR 2022-05-11 18:27:22 [facility] [place] TIME OR 2022-05-11 16:05:00 Romario [facility] (NON-REPORTABLE) Medical Branch [place] TIME OR 2022-05-11 16:05:00 Romario [facility] (NON-REPORTABLE) Medical Branch XR LUMBAR SPINE 1 2022-05-11 14:29:49 Romario [facility] XR LUMBAR SPINE 1 2022-05-11 14:29:[facility] 2022-05-11 13:39:00 Romario [facility] INTERBODY SPINAL FUSION Medical Branch POSTERIOR LUMBAR 2022-05-11 13:39:00 Romario [facility] INTERBODY SPINAL FUSION [facility] HB ABO GROUPING 2022-05-11 12:34:[address] [facility] HB ABO GROUPING 2022-05-11 12:34:[address] [facility] ASSIGNMENT OF BENEFITS 2022-05-11 12:00:45 Doctor Unassigned, Un [facility] [place] [facility] XR LUMBAR SPINE FLEXION 2022-04-15 19:57:28 Angela Schuler [facility] AND EXTENSION [address] [facility] h [QLH] T4, FREE 2018-03-23 00:00:00 [facility] [[facility]] TSH, 3RD GENERATION 2018-03-23 00:00:00 [facility] [place] Thyroid [id number] 2018-03-23 00:00:00 [facility] [[facility]] TSH, 3RD GENERATION 2017-10-20 00:00:00 [facility] [QLH] T4, FREE 2017-10-20 00:00:00 [facility] US Thyroid [id number] 2017-10-20 00:00:00 [facility] [[facility]] TSH, 3RD GENERATION 2017-07-13 00:00:00 [facility] [QLH] T4, FREE 2017-07-13 00:00:00 [facility] [QL[facility]] T3, FREE 2017-07-13 00:00:00 [facility] US Thyroid [id number] 2017-07-13 00:00:00 [facility] [place] Thyroid [id number] 2017-06-20 00:00:00 [facility] US Thyroid biopsy guided 2017-06-20 00:00:[place] [facility] [place] [id number] [facility] Plan of Care Planned Activity Planned Date Details Comments Source Diagnostic Test 2019-03-23 00:00:00 [QLH] TSH, 3RD [facility] Pending GENERATION [code = [QLH] TSH, 3RD GENERATION] Diagnostic Test 2019-03-23 00:00:00 [QLH] T4, FREE [code [facility] Pending = [QLH] T4, FREE] Diagnostic Test 2019-03-23 00:00:00 [place] Thyroid 27417 [facility] Pending [code = 62934] Diagnostic Test 2019-03-23 00:00:00 [place] Thyroid 49125 [facility] Pending [code = 89273] Diagnostic Test 2019-03-23 00:00:00 [place] Thyroid 26172 [facility] Pending [code = 36256] Diagnostic Test 2019-03-23 00:00:00 [place] Thyroid 18173 [facility] Pending [code = 59599] Diagnostic Test 2018-04-22 00:00:00 [QLH] TSH, 3RD [facility] Pending GENERATION [code = [QLH] TSH, 3RD GENERATION] Diagnostic Test 2018-04-22 00:00:00 [QLH] T4, FREE [code [facility] Pending = [QLH] T4, FREE] Diagnostic Test 2018-04-22 00:00:00 [place] Thyroid 79947 [facility] Pending [code = 89319] Diagnostic Test 2018-01-11 00:00:00 [place] Thyroid 71556 [facility] Pending [code = 08334] Diagnostic Test 2018-01-11 00:00:00 [place] Thyroid 38943 [facility] Pending [code = 05839] Diagnostic Test 2018-01-11 00:00:00 [place] Thyroid 94029 [facility] Pending [code = 61715] Diagnostic Test 2017-10-11 00:00:00 [QLH] TSH, 3RD [facility] Pending GENERATION [code = [QLH] TSH, 3RD GENERATION] Diagnostic Test 2017-10-11 00:00:00 [QLH] T4, FREE [code [facility] Pending = [QLH] T4, FREE] Diagnostic Test 2017-10-11 00:00:00 [QLH] T3, FREE [code [facility] Pending = [QLH] T3, FREE] Diagnostic Test 2017-10-11 00:00:00 [QLH] TSH, 3RD [facility] Pending GENERATION [code = [QLH] TSH, 3RD GENERATION] Diagnostic Test 2017-10-11 00:00:00 [QLH] T4, FREE [code [facility] Pending = [QLH] T4, FREE] Diagnostic Test 2017-10-11 00:00:00 [QLH] T3, FREE [code [facility] Pending = [QLH] T3, FREE] Diagnostic Test 2017-10-11 00:00:00 [QLH] TSH, 3RD [facility] Pending GENERATION [code = [QLH] TSH, 3RD GENERATION] Diagnostic Test 2017-10-11 00:00:00 [QLH] T4, FREE [code [facility] Pending = [QLH] T4, FREE] Diagnostic Test 2017-10-11 00:00:00 [QLH] T3, FREE [code [facility] Pending = [QLH] T3, FREE] Diagnostic Test 2017-06-20 00:00:00 US Thyroid 47732 [facility] Pending [code = 25848] Diagnostic Test 2017-06-20 00:00:00 US Thyroid biopsy [facility] [place] [id number] [code = 83469] Encounters Start End Encounter Admission Attending Care Care Encounter Source Date/Time Date/Time Type Type Clinicians Facility Department ID 2023-03-10 2023-03-10 Outpatient Leonie FREEMAN [facility] [id number] Univers 10:00:00 10:00:00 MINDI [facility] 2023-02-21 2023-02-21 Outpatient Leonie FREEMAN [facility] [id number] Univers 11:00:00 11:00:00 MINDI [facility] 2023-02-17 2023-02-17 Outpatient R [facility] [id number] Univers 13:05:11 23:59:00 MINDI ity [facility] 2023-02-17 2023-02-17 [facility] [id number] Univers 13:05:11 23:59:00 Encounter Mindi LAURIEPEC [id number] ity of [facility] [id number] [id number] [facility] AND COOKS [facility] [place] [facility] 2023-02-13 2023-02-13 Telephone [facility] [id number] Univers 00:00:00 00:00:00 Mindi MULTISPEC [id number] ity of [facility] [id number] [id number] [facility] AND COOKS [facility] [place] [facility] 2023-01-30 2023-01-30 Outpatient R ROSELYN DOSS [facility] [id number] Univers 09:15:00 09:15:00 ity of [facility] 2022-12-30 2022-12-30 Telephone [facility] [id number] Univers 00:00:00 00:00:00 [place] PRIMARY [id number] [place] of [facility] [id number] [id number] Id dical [place]44 [place] 2022-12-27 2022-12-27 [facility] [id number] Univers 08:43:57 23:59:00 Encounter [facility] [id number] ity of [facility] [id number] [id number] [facility] 807 [place] 2022-12-27 2022-12-27 Outpatient R ARIN [facility] [id number] Univers 08:21:57 08:42:00 DAVID ity [facility] 2022-12-27 2022-12-27 [facility] [id number] Univers 08:15:00 08:42:00 Encounter David [facility] [id number] [place] of [id number] [id number] [facility] [address] [place] 2022-12-20 2022-12-20 Outpatient R RANDAL DOSSHI [facility] [id number] Univers 11:00:00 11:00:00 ity of [facility] 2022-12-15 2022-12-15 Outpatient R ARIN [facility] [id number] Univers 08:00:00 09:03:28 DAVID ity of [facility] 2022-12-15 2022-12-15 Office Mitchell Manzanares [facility] [id number] Univers 08:00:00 09:03:28 Visit David Phillips PRIMARY [id number] [id number] [id number] Id dical [place]44 [place] 2022-12-15 2022-12-15 Telephone Glenna [facility] 1.2.840.114 [id number] Univers 00:00:00 00:00:00 Mitchell PRIMARY 350.1.13.10 it y of [facility] [place] [id number] Id dical [place] [place] 2022-12-14 2022-12-14 Outpatient R PETE [facility] [id number] Univers 14:30:00 14:30:00 MINDI ity [facility] 2022-12-13 2022-12-13 Outpatient R RADHA [facility] [id number] Univers 11:00:00 11:58:52 ALEN ity [facility] 2022-12-13 2022-12-13 Ancillary Helena Hernandez [facility] 1.2.84 0.114 [id number] Univers 11:00:00 11:58:52 Visit Alen Garcia 350.1.13.10 ity of [place] [id number] Id dical NAL 179 [facility] 2022-12-122022-12-12 Telephone Pete [facility] 1.2.508.364 [id number] Univers 00:00:00 00:00:00 Mindi EDWARD 350.1.13.10 ity of [place] 4.2.7.2.686 [facility] [place] [id number] [facility] [place] [place] [facility] 2022-12-06 2022-12-06 Outpatient R PETE [facility] [id number] Univers 10:30:00 11:23:02 MINDI ity [facility] 2022-12-06 2022-12-06 Office [facility] 1.2.840.114 [id number] Univers 10:30:00 11:23:02 Visit Mindi EDWARD 350.1.13.10 ity of [place] 4.2.7.2.686 [facility] [place] [phone] [facility] AND COOKS [place] [place] [facility] 2022-11-28 2022-11-28 Outpatient R ROSELYN DOSS [facility] [id number] Univers 08:00:00 09:09:28 ity of [facility] 2022-11-22 2022-11-22 Orders Doctor ANGELINE 1.2.840.114 [id number] Univers 00:00:00 00:00:00 Only Unassigned, HOANG 350.1.13.10 ity of [place] [facility] 4.2.7.2.686 [place] [id number] [facility] [address] 2022-11-18 2022-11-18 Telephone ANGELINE Manzanares 1.2.840.114 10 [id number] Univers 00:00:00 00:00:00 Mitchell HOANG 350.1.13.10 it y of [facility] 4.2.7.2.686 [place] [phone] [facility] [address] 2022-11-16 2022-11-16 Car Dropper Pcp-Lab [facility] 1.2.840.114 102 [id number] Univers 13:15:00 13:30:00 Visit Pathology PRIMARY 350.1.13.10 ity of C[place].2.[place] [id number] Id dical [address] 2022-11-16 2022-11-16 Outpatient R PAIGE [facility] [id number] Univers 10:30:00 13:06:05 sanjuanita [place] joel land AQUILES [facility] 2022-11-16 2022-11-16 Office Mitchell Manzanares [facility] 1.2 .840.114 [id number] Univers 10:30:00 13:06:05 Visit Aquiles Watts PRIMARY 350. 1.13.10 ity of [facility] 4.2.7.2.[place] [phone] Id dical [place]44 [place] 2022-11-16 2022-11-16 Outpatient R OLU HOLCOMB [facility] [id number] Univers 13:00:00 13:00:00 OLU HOLCOMB [facility] 2022-11-03 2022-11-03 Outpatient R PETE [facility] [id number] Univers 10:00:00 10:30:05 MINDI gann [facility] 2022-11-03 2022-11-03 Office [facility] 1.2.840.114 [id number] Univers 10:00:00 10:30:05 Visit Mindi PRIMARY 350.1.13.[address] [facility] 4.2.7.2.[place] [id number] Id dical [place]11 [place] 2022-10-18 2022-10-18 Outpatient R PETE [facility] [id number] Univers 14:30:00 14:59:07 MINDI gann [facility] 2022-10-18 2022-10-18 Office [facility] 1.2.840.114 [id number] Univers 14:30:00 14:59:07 Visit Mindi MULTISPEC 350.1.13.10 ity Tito [place].2.7.2.[place] [id number] Alana waldrop AND JORGE [address] [facility] 2022-10-14 2022-10-15 Outpatient X ANTONIO [facility] [place] [id number] Univers 12:12:00 18:21:00 RICKY sanjuanita [facility] 2022-10-14 2022-10-15 Emergency Tang Jovel [facility] 1.2.840.114 [id number] Univers 12:12:00 18:21:00 Lukas Alvarezer HEALTH 350.1.13.10 ity of [place].7.2.[place] [id number] [facility] [address] ([facility]) 2022-10-14 2022-10-14 Outpatient Leonie ETNA [facility] [id number] Univers 09:00:00 12:11:00 FERNANDO Former[facility] 2022-10-14 2022-10-14 Office [facility] 1.2.840.114 [id number] Univers 09:00:00 09:30:00 Visit Fernando S [facility] 350.1.13.10 it y of [employer] 4.2.7.2.686 [place] DEEPTI?BLEA [phone] Id donaiqra [address] MEDICAL OFFICE BUILDING 2022-10-12 2022-10-12 Milka Schuler [facility] 1.2.823.781 [id number] Univers 00:00:00 00:00:00 [facility] 350.1.13.10 i ty of [place].2.7.2.[place] [id number] [place] [address] [address] OFFICE BUILDING 2022-10-12 2022-10-12 Milka Freeman [facility] 1.2.840.114 [id number] Univers 00:00:00 00:00:00 Mindi EDWARD 350.1.13.10 ity of [place] 4.2.7.2.686 [facility] [id number] [facility] [place] [address] [address] DIABETES CLINIC 2022-10-10 2022-10-10 Outpatient ROSELYN BURRIS [facility] [id number] Univers 09:30:00 10:53:28 ity of [facility] 2022-10-07 2022-10-07 Outpatient Leonie CORLEY [facility] [id number] Univers 10:20:15 23:59:00 INNA gann [facility] 2022-10-07 2022-10-07 Brent [facility] 1.2.840.114 [id number] Univers 10:20:15 23:59:00 Encounter Inna COHEN 350.1.13.10 ity of [place] 4.2.7.2.686 [facility] [id number] [facility] 8[address] 2022-10-07 2022-10-07 Orders Doctor ANGELINE 1.2.840.114 [id number] Univers 00:00:00 00:00:00 Only Unassigned, HOANG 350.1.13.10 ity of [place] [facility] 4.2.7.2.686 [facility] [phone] [facility] [address] 2022-10-03 2022-10-03 Outpatient [facility] 005 [id number] Univers 10:30:00 12:24:03 ity of [facility] 2022-09-22 2022-09-22 Telephone [facility] 1.2.435.214 [id number] [id number] [facility] 00:00:00 00:00:00 Mindi EDWARD 350.1.13.10 ity of [place] 4.2.7.2.686 [facility] [id number] [facility] [place] [place] [facility] 2022-09-21 2022-09-21 Outpatient Leonie FREEMAN [facility] [id number] Univers 14:30:00 15:07:59 MINDI gann [facility] 2022-09-21 2022-09-21 Office [facility] 1.2.840.114 [id number] Univers 14:30:00 15:07:59 Visit Mindi EDWARD 350.1.13.10 ity of [place] 4.2.7.2.686 [facility] [id number] [facility] [place] [place] [facility] 2022-09-15 2022-09-15 Outpatient ROSELYN BURRIS [facility] [id number] Univers 11:00:00 11:00:00 ity of [facility] 2022-09-05 2022-09-05 Outpatient [facility] 360 [id number] Univers 10:45:00 11:34:33 ity of [facility] 2022-09-05 2022-09-05 [facility] 1.2.840.114 [id number] Univers 10:45:00 11:34:33 Visit HEALTH 350.1.13.10 it y of [place]2.[place].2.[place] [id number] [address] OFFICE BUILDING 2022-09-02 2022-09-02 Outpatient R ROSELYN DOSS [facility] 246 [id number] Univers 13:00:00 13:37:00 ity of [facility] 2022-09-02 2022-09-02 Office Clinic, Neurosurgery Residen t UNIVERSIT 1.2.840.114 [id number] Univers 13:00:00 13:37:00 Visit Roselyn Doss HEALTH 350.1.13.10 ity of CL[place]ICS [place].2.[place].2.[place] [id number] [address] 2022-08-30 2022-08-30 Orders Doctor ANGELINE 1.2.840.114 [id number] Univers 00:00:00 00:00:00 Only Unassigned, HOANG 350.1.13.10 ity of [place] [facility] 4.2.7.2.686 [place] [id number] [address] 2022-08-26 2022-08-26 Telephone [facility] 1.2.840.114 [id number] Univers 00:00:00 00:00:00 HEALTH 350.1.13.10 it y of [place].2.[place] [id number] [address] OFFICE BUILDING 2022-08-26 2022-08-26 Refira Russo [facility] 1.2.840.114 [id number] Univers 00:00:00 00:00:00 Henrique FAMILY 350.1.13.10 it y of MEDICINE 4.2.7.2.686 [place] CLINIC - [phone] [address] 2022-08-18 2022-08-18 Office Roselyn Doss [facility] 1.2.840.114 [id number] Univers 12:15:00 12:30:00 Visit HEALTH 350.1.13.10 it y of [place]2.[place].2.[place] [id number] [address] OFFICE BUILDING 2022-08-182022-08-18 Outpatient R ORSELYN DOSS [facility] [id number] Univers 12:15:00 12:15:00 ity [facility] 2022-08-06 2022-08-06 Telephone [facility] 1.2.840.114 [id number] Univers 00:00:00 00:00:00 HEALTH 350.1.13.10 it y of [place] [id number] [address] OFFICE BUILDING 2022-08-04 2022-08-04 Outpatient R ROSELYN DOSS [facility] 174 [id number] Univers 10:00:00 11:10:46 ity of [facility] 2022-08-04 2022-08-04 Office Romario [facility] 1.2.840.114 [id number] Univers 10:00:00 11:10:46 Visit HEALTH 350.1.13.10 it y of [place]2.[place].2.[place] [id number] [address] OFFICE BUILDING 2022-08-04 2022-08-04 Outpatient R ROSELYN DOSS [facility] 129 [id number] Univers 09:30:00 09:30:00 ity [facility] 2022-08-02 2022-08-02 Orders Doctor ANGELINE 1.2.840.114 [id number] Univers 00:00:00 00:00:00 Only Unassigned, HOANG 350.1.13.10 ity of [place] [facility] 4.2.7.2.686 [place] [id number] [address] 2022-08-01 2022-08-01 Telephone [facility] 1.2.840.114 [id number] Univers 00:00:00 00:00:00 HEALTH 350.1.13.10 it y of [place].2.[place] [id number] [address] OFFICE BUILDING 2022-07-28 2022-07-28 Outpatient R RAFAELA [facility] [id number] Univers 09:30:00 09:30:00 HENRIQUE ity [facility] 2022-07-25 2022-07-25 Office RomarioRandal bachhi [facility] 1.2.840.114 [id number] Univers 11:45:00 12:00:00 Visit HEALTH 350.1.13.10 it y of [place].2.[place] [id number] [address] OFFICE BUILDING 2022-07-25 2022-07-25 Outpatient R ROSELYN DOSS [facility] [id number] Univers 11:45:00 11:45:00 ity of [facility] 2022-07-22 2022-07-22 Telephone Alfonso [facility] 1.2.276.041 [id number] Univers 00:00:00 00:00:00 Marcos HEALTH 350.1.13.10 it y of [place]2.[place] [phone] [address] OFFICE BUILDING 2022-07-20 2022-07-20 Orders Doctor ANGELINE 1.2.840.114 [id number] Univers 00:00:00 00:00:00 Only Unassigned, HOANG 350.1.13.10 ity of [place] [facility] 4.2.7.2.686 [place] [id number] [address] 2022-07-18 2022-07-18 Telephone [facility] 1.2.840.114 [id number] Univers 00:00:00 00:00:00 HEALTH 350.1.13.10 it y of [place] [id number] [address] OFFICE BUILDING 2022-07-13 2022-07-13 Telephone [facility] 1.2.840.114 [id number] Univers 00:00:00 00:00:00 HEALTH 350.1.13.10 it y of [place].2.[place] [id number] [address] OFFICE BUILDING 2022-07-11 2022-07-12 Outpatient R DEVIN PEREZ [facility] [place] 1 [id number] Univers 05:57:00 18:30:00 DEVIN PEREZ ity of [facility] 2022-07-11 2022-07-12 Hospital [facility] 1.2.840.114 [id number] Univers 05:57:00 18:30:00 Encounter Devin Perez HEALTH 350.1.13.10 ity of [place] [phone] [facility] [address] ([facility]) 2022-07-11 2022-07-11 Surgery [facility] 1.2.840.114 [id number] Univers 07:50:00 10:00:00 HEALTH 350.1.13.10 it y of [place]2.7.2.[place] [id number] [facility] [address] [place] ([facility]) 2022-07-10 2022-07-10 Outpatient [facility] 267 [id number] Univers 00:00:00 00:00:00 ity of [facility] 2022-07-07 2022-07-07 Pre-Anesth Call, [facility] 1.2.840.114 [id number] Univers 14:30:00 14:35:00 [facility] Phone HEALTH 350.1.13.10 ity of Evaluation [place] 4.2.7.2.686 [place] [phone] [facility] [address] [place] ([facility]) 2022-07-07 2022-07-07 Office [facility] 1.2.840.114 97 [id number] Univers 12:45:00 13:00:00 Visit HEALTH 350.1.13.10 it y of [place]2.[place].2.[place] [id number] [address] OFFICE BUILDING 2022-07-07 2022-07-07 Outpatient [facility] 232 [id number] Univers 12:45:00 12:45:00 ity [facility] 2022-07-05 2022-07-05 Telephone [facility] 1.2.840.114 [id number] Univers 00:00:00 00:00:00 HEALTH 350.1.13.10 it y of [place] [id number] [address] OFFICE BUILDING 2022-06-29 2022-06-29 Outpatient R RANDAL DOSSHI [facility] [id number] Univers 14:52:11 23:59:00 ity of [facility] 2022-06-29 2022-06-29 Hospital Randal Dosshi [facility] 1.2.840.114 [id number] Univers 14:52:11 23:59:00 Encounter SPECIALTY 350.1.13.10 ity of C[place] 4.2.[place].2.[place] AT [id number] Id jesenia BOURGEOIS [address] [place] [address] 2022-06-27 2022-06-27 Outpatient R [facility]AL [facility] 478 [id number] Univers 13:00:00 17:11:30 ity of [facility] 2022-06-27 2022-06-27 Office [facility] 1.2.840.114 [id number] Univers 13:00:00 17:11:30 Visit HEALTH 350.1.13.10 it y of [place] [id number] [address] OFFICE [facility] 2022-06-27 2022-06-27 Car Dropper Draw, Clc-Bls Lab [facility] 1.2.8 40.114 [id number] Univers 14:15:00 14:30:00 Visit Randal Dosshi HEALTH 350.1.13.10 ity of [place] [id number] [address] OFFICE BUILDING 2022-06-24 2022-06-24 Telephone Rom[facility] 1.2.840.114 [id number] Univers 00:00:00 00:00:00 HEALTH 350.1.13.10 it y of [place] [id number] [address] OFFICE BUILDING 2022-06-21 2022-06-21 Office Pete [facility] 1.2.840.114 [id number] Univers 13:00:00 14:33:03 Visit Mindi EDWARD 350.1.13.10 ity of [place] 4.2.7.2.686 [place] C[place] [id number] [facility] [place] [address] [address] DIABETES CLINIC 2022-06-21 2022-06-21 Outpatient R PETE [facility] [id number] Univers 13:00:00 14:33:03 MINDI [facility] 2022-06-21 2022-06-21 Outpatient R PETE [facility] [id number] Univers 13:00:00 13:00:00 MINDI Former[facility] 2022-06-21 2022-06-21 Outpatient R PETE [facility] [id number] Univers 13:00:00 13:00:00 MINDI Formerly [facility] 2022-06-21 2022-06-21 Outpatient R PETE [facility] [id number] Univers 13:00:00 13:00:00 [facility] 2022-06-17 2022-06-17 Outpatient R KACY [facility] [id number] Univers 13:40:00 14:40:05 MARCIO Formerly [facility] 2022-06-17 2022-06-17 Office Clinic[facility] 1.2.840.114 [id number] Univers 13:40:00 14:40:05 Visit Marcio Woodruff [facility] 350.1.13.10 ity of CLINICS 4.2.7.2.686 [facility] [id number] [place] [address] [address] 2022-06-15 2022-06-15 Outpatient R YELITZA [facility] [id number] Univers 13:45:00 13:45:00 RAY Formerly [facility] 2022-06-13 2022-06-13 Outpatient R RAFAELA [facility] [id number] Univers 09:30:00 12:35:45 HENRIQUE Former[facility] 2022-06-13 2022-06-13 Office Rafaela [facility] 1.2.840.114 [id number] Univers 09:30:00 12:35:45 Visit Henrique [facility] 350.1.13.10 it y of MEDICINE 4.2.7.2.686 [facility] CLINIC - [phone] [address] 2022-06-13 2022-06-13 Telephone Roselyn Doss [facility] 1.2.840.114 [id number] Univers 00:00:00 00:00:00 HEALTH 350.1.13.10 it y of [place] [id number] [facility] [address] OFFICE BUILDING 2022-06-07 2022-06-07 Outpatient R SURAJ [facility] [id number] Univers 07:30:00 07:30:00 MARCOS gann [facility] 2022-06-05 2022-06-06 Outpatient X [facility] [id number] Univers 07:47:00 12:30:00 DAMON gann [facility] 2022-06-05 2022-06-06 Emergency Leos Arturo BERNABEE 1.2.840.1 14 [id number] Univers 07:47:00 12:30:00 Esther Damonteagan BOLTON 350.1.13.10 ity of HOSPITAL 4.2.7.2.686 [place] [id number] [facility] [address] 2022-06-06 2022-06-06 Outpatient R ROSELYN DOSS [facility] [id number] Univers 09:45:00 09:45:00 ity [facility] 2022-06-06 2022-06-06 Transition GINA Castro 1.2.840.114 [id number] Univers 00:00:00 00:00:00 of Care Leslie PARR 350.1.13.10 i ty of [place] [id number] [facility] [address] 2022-06-02 2022-06-04 Inpatient X SARA [facility] [id number] Univers 10:30:00 13:19:00 BRIAN ity [facility] 2022-06-02 2022-06-04 [facility] Brittany Pérez [facility] 1.2.840.114 [id number] Univers 10:30:00 13:19:00 Encounter Manpreethiteshalexander, Brian HEALTH 350.1.13.10 ity of [place] [phone] [facility] [address] ([facility]) 2022-06-03 2022-06-03 Surgery Roselyn Doss [facility] 1.2.840.114 [id number] Univers 09:30:00 13:57:00 HEALTH 350.1.13.10 it y of [place] [id number] [facility] [address] ([facility]) 2022-06-01 2022-06-01 Outpatient R SURAJ [facility] [id number] Univers 13:15:00 14:14:41 MARCOS ity [facility] 2022-06-01 2022-06-01 Ancillary Davey Rodrigues [facility] 1.2.840.1 14 [id number] Univers 13:15:00 14:14:41 Visit Marcos Chan PRIMARY 350.1.13.10 ity of CARE [place].2.7.2.[place] [id number] Id dical [address] 2022-05-31 2022-05-31 Telephone Romario Roselyn [facility] 1.2.840.114 [id number] Univers 00:00:00 00:00:00 HEALTH 350.1.13.10 it y of [place] [id number] [facility] [address] OFFICE BUILDING 2022-05-27 2022-05-28 Emergency X TARIQ, [facility] ERT [id number] Univers 19:43:00 00:42:00 SHINTA ity [facility] 2022-05-27 2022-05-28 Emergency Vincent, TRAUMA 1.2.840.114 [id number] Univers 19:43:00 00:42:00 Shinta [place] 350.1.13.10 it y of [place]2.7.2.[place] [id number] [facility] [address] 2022-05-27 2022-05-27 Nurse Nurse, Miguelito Adult Urgent [facility] 1. 2.840.114 [id number] Univers 16:15:00 16:30:00 Visit Unknown, Attending ISLAND 350.1.13.10 ity of Myrna Blankenship PEDIATRIC 4.2.7.2.686 [facility] [id number] [facility] [address] 2022-05-27 2022-05-27 Outpatient R SAROJ [facility] [id number] Univers 16:15:00 16:05:47 [facility] ity of [facility] 2022-05-27 2022-05-27 Patient Rafaela [facility] 1.2.840.114 [id number] Univers 00:00:00 00:00:00 Secure Msg Henrique FAMILY 350.1.13.10 ity of MEDICINE 4.2.7.2.686 [place] CLINIC - [phone] [address] 2022-05-26 2022-05-26 Ancillary Davey Rodrigues [facility] 1.2.840.1 14 [id number] Univers 11:15:00 12:33:38 Visit Maylin Chanian Samuel PRIMARY 350.1.13.10 [place] [phone] [place] [address] [address] 2022-05-20 2022-05-20 Telephone Roselyn Doss [facility] 1.2.840.114 [id number] Univers 00:00:00 00:00:00 HEALTH 350.1.13.10 [place] [phone] [facility] [address] OFFICE BUILDING 2022-05-19 2022-05-19 Telephone Jasiel [facility] 1.2.840.114 [id number] Univers 00:00:00 00:00:00 Leesa MULTISPEC 350.1.13.10 [place] [phone] [facility] [address] [facility] 2022-05-18 2022-05-18 Office Rafaela [facility] 1.2.840.114 [id number] Univers 11:30:00 12:00:00 Visit Henrique COLMENARES 350.1.13.10 it y of MEDICINE 4.2.7.2.686 [place] - [phone] [address] 2022-05-18 2022-05-18 Outpatient R RAFAELA [facility] [id number] Univers 11:30:00 11:30:00 HENRIQUE ity of [facility] 2022-05-11 2022-05-15 Outpatient R ANTONIO [facility] [place] [id number] Univers 07:00:00 16:32:00 RICKY ity of [facility] 2022-05-11 2022-05-15 [facility] 1.2.840.114 [id number] Univers 07:00:00 16:32:00 Encounter Etta Diggs HEALTH 350.1.13.10 ity of Ricky Alvarez CLEAR 4.2.7.2.[address] [place] [address] [phone] [facility] [address] ([facility]) 2022-05-11 2022-05-11 [facility] 1.2.840.114 [id number] Univers 08:40:00 12:46:00 HEALTH 350.1.13.10 it [place] [phone] [facility] [address] ([facility]) 2022-05-11 2022-05-11 Orders Doctor ANGELINE 1.2.840.114 [id number] Univers 00:00:00 00:00:00 Only Unassigned, HOANG 350.1.13.10 ity of [facility] 4.2.7.2.686 [place] [phone] [facility] [address] 2022-05-09 2022-05-09 Car Dropper Only, [facility] Test UNIVERSIT 1.2.84 0.114 [id number] Univers 10:15:00 10:30:00 Visit Nya Mtz HEALTH 350.1.13.10 it[place] [phone] [facility] [address] 2022-05-09 2022-05-09 Outpatient R SMITH [facility] [id number] Univers 10:15:00 10:15:00 NYA gann of [facility] 2022-05-09 2022-05-09 Office Leesa Weathers UNIVERSIT 1.2.84 0.114 [id number] Univers 09:30:00 09:45:00 Visit Nya Mtz HEALTH 350.1.13.10 it[place] [phone] [place] [address] [address] 2022-05-06 2022-05-06 Pre-Anesth Call, [facility] 1.2.840.114 [id number] Univers 13:05:00 13:10:00 esia Apa Phone HEALTH 350.1.13.10 ity of Evaluation [place] 4.2.7.2.[address] [place] [address] [phone] [facility] [address] ([facility]) 2022-04-25 2022-04-25 [facility] 1.2.840.114 [id number] Univers 11:30:00 11:45:00 Visit HEALTH 350.1.13.10 it y of [place] [id number] [address] OFFICE BUILDING 2022-04-25 2022-04-25 Outpatient ROSELYN BURRIS [facility] [id number] Univers 11:30:00 11:30:00 ity [facility] 2022-04-24 2022-04-24 [facility] [id number] Univers 12:47:37 23:59:00 [facility] 2022-04-24 [facility] 1.2.840.114 [id number] Univers 12:47:37 23:59:00 Encounter Angela Arellano SPECIALTY 350.1.13.10 it[place] of C[place] [phone] Id jesenia BOURGEOIS 804 [facility] 2022-04-15 2022-04-15 Outpatient [facility] [id number] Univers 14:15:00 23:59:00 [facility] 2022-04-15 2022-04-15 Outpatient [facility] [id number] Univers 14:15:00 23:59:00 ANGELA ity [facility] 2022-04-15 2022-04-15 [facility] 1.2.840.114 [id number] Univers 14:15:00 23:59:00 Encounter Angela Arellano HEALTH 350.1.13.10 it[place] of [place] [address] [id number] [facility] [address] ([facility]) 2022-04-15 2022-04-15 Office Ganga [facility] 1.2.038.641 [id number] Univers 13:30:00 14:00:00 Visit Angela Arellano [facility] 350.1.13.10 i ty of [place] [address] [id number] [address] OFFICE BUILDING 2022-04-15 2022-04-15 Outpatient Leonie FREEMAN [facility] [id number] Univers 08:00:00 08:00:00 MINDI gann [facility] 2022-04-10 2022-04-10 AGNELINE Gerardo 1.2.840.114 [id number] Univers 00:00:00 00:00:00 (Out) Kristin BOLTON 350.1.13.10 it y of HOSPITAL 4.2.7.2.686 [place] [id number] [facility] [address] 2022-04-09 2022-04-09 Outpatient Leonie LUGO [facility] [id number] Univers 14:00:00 14:23:00 ANGELINE gann [facility] 2022-04-09 2022-04-09 Urgent Angeline Lugo [facility] 1.2.840.114 [id number] Univers 14:00:00 14:23:00 Care Blanca [place] 350.1.13.10 ity of PEDIATRIC 4.2.7.2.686 [facility] [id number] [facility] [address] 2022-04-09 2022-04-09 Outpatient Leonie LUGO [facility] [id number] Univers 14:00:00 14:23:00 ANGELINE gann [facility] 2022-04-09 2022-04-09 Outpatient Leonie LUGO [facility] [id number] Univers 14:00:00 14:23:00 ANGELINE gann [facility] 2022-03-29 2022-03-29 Loren Freeman [facility] 1.2.949.302 [id number] Univers 00:00:00 00:00:00 Mindi EDWARD 350.1.13.10 ity of [place] C[place] [id number] [address] DIABETES CLINIC 2022-03-28 2022-03-28 Outpatient R MARCUS MTZ [facility] [id number] Univers 11:00:00 11:23:07 MARCUS MTZ i [facility] 2022-03-28 2022-03-28 Office Leesa [facility]s [facility] 1.2.84 0.114 [id number] Univers 11:00:00 11:23:07 Visit Marcus Mtz [facility] 350.1.13.10 ity of [facility] 4.2.7.2.686 [id number] [address] 2022-03-28 2022-03-28 Outpatient R MARCUS MTZ [facility] [id number] Univers 11:00:00 11:23:07 MARCUS MTZ i [facility] 2022-03-17 2022-03-17 Outpatient Leonie FREEMAN [facility] [id number] Univers 14:30:00 15:34:47 MINDI gann [facility] 2022-03-17 2022-03-17 Office [facility] 1.2.840.114 [id number] Univers 14:30:00 15:34:47 Visit Mindi EDWARD 350.1.13.10 ity of [place] 4.2.7.2.686 [facility] [place] [id number] [address] DIABETES CLINIC 2022-03-14 2022-03-14 Telephone [facility] 1.2.840.114 [id number] Univers 00:00:00 00:00:00 Satish SULLIVANPEC 350.1.13.10 ity of [place]OLDO 4.2.7.2.686 [facility] [place] [id number] [facility] AND [address] DIABETES CLINIC 2022-03-06 2022-03-06 Outpatient R SAWYER [facility] [id number] Univers 09:26:52 23:59:00 SATISH gann o f [facility] 2022-03-06 2022-03-06 [facility] Sawyer [facility] 1.2.840.114 [id number] Univers 09:26:52 23:59:00 Encounter Satish Arora [facility] 350.1.13.10 ity of CLINICS 4.[place] [id number] [facility] [address] 2022-02-24 2022-02-24 Outpatient R RANDY [facility] [id number] Univers 13:45:00 16:00:58 LEISA susan [facility] 2022-02-24 2022-02-24 Outpatient R RANDY [facility] [id number] Univers 13:45:00 16:00:58 [facility] 2022-02-24 2022-02-24 Nurse Visit, [facility] Dermatology Nurse UNIVE RSIT 1.2.840.114 [id number] Univers 13:45:00 14:00:00 Visit Sam Padillaelan Boogie [facility] 350.1.13.1 0 ity of CLINICS 4.[place].2.[place] [id number] [facility] [address] 2022-02-21 2022-02-21 Outpatient R SAWYER [facility] [id number] Univers 11:30:00 11:55:08 SATISH maldonado [facility] 2022-02-21 2022-02-21 Office [facility] 1.2.840.114 [id number] Univers 11:30:00 11:55:08 Visit Satish Arora [facility] 350.1.13.[address] [facility] [place] [id number] [facility] AND [place] [address] [address] DIABETES CLINIC 2022-02-21 2022-02-21 Outpatient R SAWYER [facility] [id number] Univers 11:30:00 11:55:08 SATISH maldonado [facility] 2022-02-21 2022-02-21 Outpatient R SAWYER [facility] [id number] Univers 11:30:00 11:55:08 SATISH maldonado [facility] 2022-02-17 2022-02-17 Outpatient R MARCUS MTZ [facility] [id number] Univers 13:30:00 14:09:40 MARCUS MTZ i [facility] 2022-02-15 2022-02-15 Outpatient Leonie JACQUES [facility] [id number] Univers 13:30:00 13:30:00 SATISH guysusan land [facility] 2022-02-15 2022-02-15 Outpatient Leonie JACQUES [facility] [id number] Univers 13:30:00 13:30:00 SATISH maldonado shanda [facility] 2022-02-14 2022-02-14 Office Leesa Weathers [facility] 1.2.84 0.114 [id number] Univers 10:30:00 10:45:00 Visit Nya Mtz [facility] 350.1.13.10 ity of CLINICS 4[place] [id number] [address] 2022-02-14 2022-02-14 Outpatient Leonie MTZ [facility] [id number] Univers 10:30:00 10:30:00 NYA gann [facility] 2022-02-14 2022-02-14 Outpatient Leonie MTZ [facility] [id number] Univers 10:30:00 10:30:00 NYA gann [facility] 2022-02-14 2022-02-14 Outpatient Leonie MTZ [facility] [id number] Univers 10:30:00 10:30:00 NYA susan [facility] 2022-01-20 2022-01-20 Telephone Rafaela [facility] 1.2.179.290 [id number] Univers 00:00:00 00:00:00 Henrique FAMILY 350.1.13.10 it y of MEDICINE 4.2.7.2.686 [place] CLINIC - [id number] [address] 2022-01-18 2022-01-18 Office Rafaela [facility] 1.2.840.114 [id number] Univers 09:30:00 10:00:00 Visit Henrique FAMILY 350.1.13.10 it y of MEDICINE 4.2.7.2.686 [place] CLINIC - [id number] [address] 2022-01-18 2022-01-18 Outpatient R RAFAELA [facility] [id number] Univers 09:30:00 09:30:00 HENRIQUE ity of [facility] 2022-01-16 2022-01-16 Emergency X AVIVA [facility] ERT [id number] Univers 18:48:00 23:00:00 SARA ity of [facility] 2022-01-16 2022-01-16 Emergency Aviva, TRAUMA 1.2.840.114 [id number] Univers 18:48:00 23:00:00 Sara S CENTER 350.1.13.10 it [place].2.[place] [id number] [facility] [address] 2022-01-06 2022-01-06 Emergency X AMRCOS RAVI [facility] ERT [id number] Univers 07:57:00 11:54:00 ity of [facility] 2022-01-06 2022-01-06 Emergency Marcos Ravi [place] 1.2.840.114 [id number] Univers 07:57:00 11:54:00 W CENTER 350.1.13.10 it [place].2.[place] [id number] [facility] [address] 2021-12-06 2021-12-06 Orders Doctor ANGELINE 1.2.840.114 [id number] Univers 00:00:00 00:00:00 Only Unassigned, HOANG 350.1.13.10 ity of [facility] 4.2.7.2.686 [place] [id number] [facility] [address] 2021-10-28 2021-10-29 Emergency X ARTURO LEOS [facility] ERT [id number] Univers 19:52:00 00:59:00 ARTURO LEOS ity of [facility] 2021-10-28 2021-10-29 Emergency Leos, TRAUMA 1.2.903.188 [id number] Univers 19:52:00 00:59:00 Arturo CENTER 350.1.13.10 it [place] [id number] [facility] [address] 2018-03-23 2018-03-23 AppointTAM [place] [id number] [place] 15:20:00 15:20:00 t; PATRICE RAHMAN, Ph Brigitte Alvarez M.D. 2017-10-20 2017-10-20 Appointmen LACEY [facility] [id number] [place] 15:00:00 15:00:00 t; PATRICE RAHMAN, Brigitte Lynn M.D. 2017-07-13 2017-07-13 Appointmen LACEY [facility] [id number] [place] 11:00:00 11:00:00 t; PATRICE RAHMAN, Brigitte Lynn M.D. 2016-11-21 2016-11-21 [facility] [id number] [place] 16:00:00 16:00:00 t; PATRICE RAHMAN, Brigitte Lynn M.D. 2016-10-01 2016-10-01 [facility] [id number] [place] 09:00:00 09:00:00 t; PATRICE RAHMAN, Brigitte Lynn M.D. Results Test Description Test Time Test Comments Results Result Comments Source CBC WITH DIFF 2022-07-12 09:44:18 Test Item Value Reference Range Interpretation Comme nts WBC (test code = 6690-2) See_Comment H [A utomated message] The system which ge nerated this result transmit mar reference range: 4.30 - 1 1.10 10*3/?L. The reference r silvino was not used to interpr et this result as normal/abnor mal. RBC (test code = 789-8) See_Comment L [Au tomated message] The system which ge nerated this result transmit mar reference range: 3.93 - 5 .25 10*6/?L. The reference r silvino was not used to interpr et this result as normal/abnor mal. HGB (test code = 718-7) 12.3 g/dL 11.6-15.0 HCT (test code = 4544-3) 35.1 % 35.7-45.2 L MCV (test code = 787-2) 103.8 fL 80.6-95.5 H MCH (test code = 785-6) 36.4 pg 25.9-32.8 H MCHC (test code = 786-4) 35.0 g/dL 31.6-35.1 RDW-SD (test code = 81402-9) 47.9 fL 39.0-49.9 RDW-CV (test code = 788-0) 12.7 % 12.0-15.5 PLT (test code = 777-3) See_Comment [Au tomated message] The system which ge nerated this result transmit mar reference range: 166 - 35 8 10*3/?L. The reference range was not used to interpret th is result as normal/abnormal . MPV (test code = 39421-4) 9.2 fL 9.5-12.9 L NRBC/100 WBC (test code = See_Comment [ Automated message] The 7146109673) system which ge nerated this result transmit mar reference range: 0.0 - 10 .0 /100 WBCs. The reference r silvino was not used to interpr et this result as normal/abnor mal. NRBC x10^3 (test code = See_Comment [Au tomated message] The 0818941752) system which ge nerated this result transmit mar reference range: 10*3/?L. The reference range was not u sed to interpret this result as normal/abnormal . GRAN MAT (NEUT) % (test code 84.5 % = 770-8) IMM GRAN % (test code = 0.40 % 2158736197) LYMPH % (test code = 736-9) 9.0 % MONO % (test code = 5905-5) 5.8 % EOS % (test code = 713-8) 0.2 % BASO % (test code = 706-2) 0.1 % GRAN MAT x10^3(ANC) (test 15.40 10*3/uL 1.88-7.09 H code = 6790779363) IMM GRAN x10^3 (test code = 0.08 10*3/uL 0.00-0.06 H 8956439792) LYMPH x10^3 (test code = 1.65 10*3/uL 1.32-3.29 731-0) MONO x10^3 (test code = 1.06 10*3/uL 0.33-0.92 H 742-7) EOS x10^3 (test code = 0.03 10*3/uL 0.03-0.39 711-2) BASO x10^3 (test code = 0.01-0.07 704-7) Lab Interpretation (test Abnormal code = 98702-3) [facility] WITH [id number] 09:44:18 Test Item Value Reference Range Interpretation Comments WBC (test code = See_Comment H [Automated 6690-2) message] The system which generated this result transmit mar reference range : 4.30 - 11.10 10*3/?L. The reference range was not used to interpret this result as normal/abnormal . RBC (test code = See_Comment L [Automated 789-8) message] The system which generated this result transmit mar reference range : 3.93 - 5.25 10*6/?L. The reference range was not used to interpret this result as normal/abnormal . HGB (test code = 12.3 g/dL 11.6-15.0 718-7) HCT (test code = 35.1 % 35.7-45.2 L 4544-3) MCV (test code = 103.8 fL 80.6-95.5 H 787-2) MCH (test code = 36.4 pg 25.9-32.8 H 785-6) MCHC (test code = 35.0 g/dL 31.6-35.1 786-4) RDW-SD (test code = 47.9 fL 39.0-49.9 27767-0) RDW-CV (test code = 12.7 % 12.0-15.5 788-0) PLT (test code = See_Comment [Automated 777-3) message] The system which generated this result transmit mar reference range : 166 - 358 10*3/ ?L. The reference range was not u sed to interpret th is result as normal/abnormal . MPV (test code = 9.2 fL 9.5-12.9 L 81733-2) NRBC/100 WBC (test See_Comment [Automat ed code = 5020653462) message] The system which generated this result transmit mar reference range : 0.0 - 10.0 /100 WBCs. The reference range was not used to interpret this result as normal/abnormal . NRBC x10^3 (test code See_Comment [Auto mated = 8015445336) message] The system which generated this result transmit mar reference range : 10*3/?L. The reference range was not used to interpret this result as normal/abnormal . GRAN MAT (NEUT) % 84.5 % (test code = 770-8) IMM GRAN % (test code 0.40 % = 6085201128) LYMPH % (test code = 9.0 % 736-9) MONO % (test code = 5.8 % 5905-5) EOS % (test code = 0.2 % 713-8) BASO % (test code = 0.1 % 706-2) GRAN MAT x10^3(ANC) 15.40 10*3/uL 1.88-7.09 H (test code = 6460264836) IMM GRAN x10^3 (test 0.08 10*3/uL 0.00-0.06 H code = 6489776601) LYMPH x10^3 (test code 1.65 10*3/uL 1.32-3.29 = 731-0) MONO x10^3 (test code 1.06 10*3/uL 0.33-0.92 H = 742-7) EOS x10^3 (test code = 0.03 10*3/uL 0.03-0.39 711-2) BASO x10^3 (test code 0.01-0.07 = 704-7) Lab Interpretation Abnormal (test code = 58127-6) [facility] (NA, K, CL, CO2, GLUCOSE, BUN, CREATININE, CA)2022-07-12 09:32:34 Test Item Value Reference Range Interpretation Comments NA (test code = 137 mmol/L 135-145 7205305228) K (test code = 4.2 mmol/L 3.5-5.0 2375839810) CL (test code = 110 mmol/L 98-108 H 7020152162) CO2 TOTAL (test code = 26 mmol/L 23-31 9334749367) AGAP (test code = 2-16 L 0246796998) BUN (test code = 10 mg/dL 7-23 4143195462) GLUCOSE (test code = 143 mg/dL 70-110 H 3950388144) CREATININE (test code = 0.67 mg/dL 0.50-1.04 8498512745) CALCIUM (test code = 8.5 mg/dL 8.6-10.6 L 9381899786) eGFR (test code = mL/min/1.73m2 1158564520) MELISSA (test code = MELISSA) Association of Glomerular Filtration Rate (GFR) and Staging of Kidney Disease* + --+ --+ ------+| GFR (mL/min/1.73 m2) ?| With Kidney Damage ?| ?Without Kidney Damage+ --------+ --------+ +| ?>90 ?| ?Stage one ?| ? Normal ?+ ---+ ---+ -------+| ?60-89 ?| ?Stage two ?| ? Decreased GFR ? + --+ --+ ------+| ?30-59 ?| ?Stage three ?| ? Stage three ? + --+ --+ ------+| ?15-29 ?| ?Stage four ? | ? Stage four ?+ ---+ ---+ -------+| ?<15 (or dialysis) ? ?| ?Stage five ? | ? Stage five ?+ ---+ ---+ -------+ *Each stage assumes the associated GFR level has been in effect for at least three months. ?Stages 1 to 5, with or without kidney disease, indicate chronic kidney disease. Notes: Determination of stages one and two (with eGFR >59mL/min/1.73 m2) requires estimation of kidney damage for at least three months as defined by structural or functional abnormalities of the kidney, manifested by either:Pathological abnormalities or Markers of kidney damage (including abnormalities in the composition of the blood or urine or abnormalities in imaging tests). Lab Interpretation Abnormal (test code = 36848-1) [facility] METABOLIC PANEL (NA, K, CL, CO2, GLUCOSE, BUN, CREATININE, CA)2022-07-12 09:32:34 Test Item Value Reference Range Interpretation Comments NA (test code = 137 mmol/L 135-145 6132389176) K (test code = 4.2 mmol/L 3.5-5.0 7012125625) CL (test code = 110 mmol/L 98-108 H 4798117802) CO2 TOTAL (test code = 26 mmol/L 23-31 0240544973) AGAP (test code = 2-16 L 0948291791) BUN (test code = 10 mg/dL 7-23 3725195309) GLUCOSE (test code = 143 mg/dL 70-110 H 1684041539) CREATININE (test code = 0.67 mg/dL 0.50-1.04 6708076240) CALCIUM (test code = 8.5 mg/dL 8.6-10.6 L 2766444916) eGFR (test code = mL/min/1.73m2 2344114580) MELISSA (test code = MELISSA) Association of Glomerular Filtration Rate (GFR) and Staging of Kidney Disease* + --+ --+ ------+| GFR (mL/min/1.73 m2) ?| With Kidney Damage ?| ?Without Kidney Damage+ --------+ --------+ +| ?>90 ?| ?Stage one ?| ? Normal ?+ ---+ ---+ -------+| ?60-89 ?| ?Stage two ?| ? Decreased GFR ? + --+ --+ ------+| ?30-59 ?| ?Stage three ?| ? Stage three ? + --+ --+ ------+| ?15-29 ?| ?Stage four ? | ? Stage four ?+ ---+ ---+ -------+| ?<15 (or dialysis) ? ?| ?Stage five ? | ? Stage five ?+ ---+ ---+ -------+ *Each stage assumes the associated GFR level has been in effect for at least three months. ?Stages 1 to 5, with or without kidney disease, indicate chronic kidney disease. Notes: Determination of stages one and two (with eGFR >59mL/min/1.73 m2) requires estimation of kidney damage for at least three months as defined by structural or functional abnormalities of the kidney, manifested by either:Pathological abnormalities or Markers of kidney damage (including abnormalities in the composition of the blood or urine or abnormalities in imaging tests). Lab Interpretation Abnormal (test code = 34656-7) [facility], [id number] 23:53:52 Test Item Value Reference Range Interpretation Comments PREG SERUM (test code Negative = 6676764224) MELISSA (test code = MELISSA) Less than 10 IU/L. ?If low titer or ectopic is suspected, resubmit specimen in 48-[address] [facility], [id number] 23:53:52 Test Item Value Reference Range Interpretation Comments PREG SERUM (test code Negative = 7408841050) MELISSA (test code = MELISSA) Less than 10 IU/L. ?If low titer or ectopic is suspected, resubmit specimen in 48-[address] [facility] and Screen - ONCE [id number] 13:50:24 Test Item Value Reference Range Interpretation Comments ABO & RH (test code A Positive Performe d at [facility] = 20) Laboratory Serv [employer] [facility] [address] [place] [address] 4Toll Free: [phone] 266CLIA No. [id number] IAT (test code = Negative Performed a t WAMB 1185) Laboratory [facility] [employer] [facility] [address] [place], [place] [id number] 4Toll Free: [id number] [facility] - ONCE [id number] 13:50:24 Test Item Value Reference Range Interpretation Comments ABO & RH (test code A Positive Performe d at [facility] = 20) Laboratory [facility] [employer] [facility] [address] [place], [place] [phone] 4Toll Free: [phone] 266CLIA No. [id number] IAT (test code = Negative Performed a t WAMB 1185) Laboratory [facility] [employer] [facility] [address] [place], [place] [phone] 4Toll Free: [id number] [facility]OL[facility] (NA, K, CL, CO2, GLUCOSE, BUN, CREATININE, CA)2022-06-06 11:12:05 Test Item Value Reference Range Interpretation Comments NA (test code = 134 mmol/L 135-145 L 2940572168) K (test code = 3.9 mmol/L 3.5-5.0 7758414866) CL (test code = 101 mmol/L 98-108 9398766785) CO2 TOTAL (test code = 26 mmol/L 23-31 5167810446) AGAP (test code = 2-16 1133486296) BUN (test code = 9 mg/dL 7-23 5874204563) GLUCOSE (test code = 120 mg/dL 70-110 H 7890842384) CREATININE (test code = 0.74 mg/dL 0.50-1.04 1927259269) CALCIUM (test code = 8.5 mg/dL 8.6-10.6 L 8049045365) eGFR (test code = mL/min/1.73m2 7747807999) MELISSA (test code = MELISSA) Association of Glomerular Filtration Rate (GFR) and Staging of Kidney Disease* + --+ --+ ------+| GFR (mL/min/1.73 m2) ?| With Kidney Damage ?| ?Without Kidney Damage+ --------+ --------+ +| ?>90 ?| ?Stage one ?| ? Normal ?+ ---+ ---+ -------+| ?60-89 ?| ?Stage two ?| ? Decreased GFR ? + --+ --+ ------+| ?30-59 ?| ?Stage three ?| ? Stage three ? + --+ --+ ------+| ?15-29 ?| ?Stage four ? | ? Stage four ?+ ---+ ---+ -------+| ?<15 (or dialysis) ? ?| ?Stage five ? | ? Stage five ?+ ---+ ---+ -------+ *Each stage assumes the associated GFR level has been in effect for at least three months. ?Stages 1 to 5, with or without kidney disease, indicate chronic kidney disease. Notes: Determination of stages one and two (with eGFR >59mL/min/1.73 m2) requires estimation of kidney damage for at least three months as defined by structural or functional abnormalities of the kidney, manifested by either:Pathological abnormalities or Markers of kidney damage (including abnormalities in the composition of the blood or urine or abnormalities in imaging tests). Lab Interpretation Abnormal (test code = 05888-6) [facility] WITH [id number] 10:51:00 Test Item Value Reference Range Interpretation Comments WBC (test code = See_Comment H [Automated 6690-2) message] The sy stem which generated this result transmitted reference range : 4.30 - 11.10 10*3/?L. The reference range was not used to interpret this result as normal/abnormal . RBC (test code = See_Comment L [Automated 789-8) message] The sy stem which generated this result transmitted reference range : 3.93 - 5.25 10*6/?L. The reference range was not used to interpret this result as normal/abnormal . HGB (test code = 13.1 g/dL 11.6-15.0 718-7) HCT (test code = 38.6 % 35.7-45.2 4544-3) MCV (test code = 106.3 fL 80.6-95.5 H 787-2) MCH (test code = 36.1 pg 25.9-32.8 H 785-6) MCHC (test code = 33.9 g/dL 31.6-35.1 786-4) RDW-SD (test code = 54.9 fL 39.0-49.9 H 97936-6) RDW-CV (test code = 13.9 % 12.0-15.5 788-0) PLT (test code = See_Comment [Automated 777-3) message] The sy stem which generated this result transmitted reference range : 166 - 358 10*3/ ?L. The reference r silvino was not used to interpret this result as normal/abnormal . MPV (test code = 9.4 fL 9.5-12.9 L 91377-1) NRBC/100 WBC (test See_Comment [Automat ed code = [id number]) message] The system which generated this result transmitted reference range : 0.0 - 10.0 /100 WBCs. The refer ence range was not u sed to interpret th is result as normal/abnormal . NRBC x10^3 (test code See_Comment [Auto mated = [id number]) message] The s ystem which generated this result transmitted reference range : 10*3/?L. The reference range was not used to interpret this result as normal/abnormal . GRAN MAT (NEUT) % 71.3 % (test code = 770-8) IMM GRAN % (test code 0.30 % = 9219454752) LYMPH % (test code = 19.1 % 736-9) MONO % (test code = 7.7 % 5905-5) EOS % (test code = 1.4 % 713-8) BASO % (test code = 0.2 % 706-2) GRAN MAT x10^3(ANC) 9.62 10*3/uL 1.88-7.09 H (test code = 7036274977) IMM GRAN x10^3 (test 0.04 10*3/uL 0.00-0.06 code = 7702445183) LYMPH x10^3 (test code 2.58 10*3/uL 1.32-3.29 = 731-0) MONO x10^3 (test code 1.04 10*3/uL 0.33-0.92 H = 742-7) EOS x10^3 (test code = 0.19 10*3/uL 0.03-0.39 711-2) BASO x10^3 (test code 0.03 10*3/uL 0.01-0.07 = 704-7) Lab Interpretation Abnormal (test code = 27471-2) [facility] METABOLIC PANEL (NA, K, CL, CO2, GLUCOSE, BUN, CREATININE, CA)2022-06-05 14:05:05 Test Item Value Reference Range Interpretation Comments NA (test code = 135 mmol/L 135-145 0972460291) K (test code = 4.3 mmol/L 3.5-5.0 3601971289) CL (test code = 103 mmol/L 98-108 9413890726) CO2 TOTAL (test code = 25 mmol/L 23-31 8872340500) AGAP (test code = 2-16 7366312245) BUN (test code = 9 mg/dL 7-23 0786578441) GLUCOSE (test code = 131 mg/dL 70-110 H 4210850076) CREATININE (test code = 0.74 mg/dL 0.50-1.04 6423791201) CALCIUM (test code = 8.9 mg/dL 8.6-10.6 9020649172) eGFR (test code = mL/min/1.73m2 7065090903) MELISSA (test code = MELISSA) Association of Glomerular Filtration Rate (GFR) and Staging of Kidney Disease* + --+ --+ ------+| GFR (mL/min/1.73 m2) ?| With Kidney Damage ?| ?Without Kidney Damage+ --------+ --------+ +| ?>90 ?| ?Stage one ?| ? Normal ?+ ---+ ---+ -------+| ?60-89 ?| ?Stage two ?| ? Decreased GFR ? + --+ --+ ------+| ?30-59 ?| ?Stage three ?| ? Stage three ? + --+ --+ ------+| ?15-29 ?| ?Stage four ? | ? Stage four ?+ ---+ ---+ -------+| ?<15 (or dialysis) ? ?| ?Stage five ? | ? Stage five ?+ ---+ ---+ -------+ *Each stage assumes the associated GFR level has been in effect for at least three months. ?Stages 1 to 5, with or without kidney disease, indicate chronic kidney disease. Notes: Determination of stages one and two (with eGFR >59mL/min/1.73 m2) requires estimation of kidney damage for at least three months as defined by structural or functional abnormalities of the kidney, manifested by either:Pathological abnormalities or Markers of kidney damage (including abnormalities in the composition of the blood or urine or abnormalities in imaging tests). Lab Interpretation Abnormal (test code = 46855-2) [facility] WITH [id number] 14:00:43 Test Item Value Reference Range Interpretation Comments WBC (test code = See_Comment H [Automated 0890-2) message] The system which generated this result transmit mar reference range : 4.30 - 11.10 10*3/?L. The reference range was not used to interpret this result as normal/abnormal . RBC (test code = See_Comment L [Automated 589-8) message] The system which generated this result transmit mar reference range : 3.93 - 5.25 10*6/?L. The reference range was not used to interpret this result as normal/abnormal . HGB (test code = 13.7 g/dL 11.6-15.0 718-7) HCT (test code = 39.0 % 35.7-45.2 4544-3) MCV (test code = 108.9 fL 80.6-95.5 H 787-2) MCH (test code = 38.3 pg 25.9-32.8 H 785-6) MCHC (test code = 35.1 g/dL 31.6-35.1 786-4) RDW-SD (test code = 58.9 fL 39.0-49.9 H 94297-2) RDW-CV (test code = 14.5 % 12.0-15.5 788-0) PLT (test code = See_Comment [Automated 777-3) message] The system which generated this result transmit mar reference range : 166 - 358 10*3/ ?L. The reference range was not u sed to interpret th is result as normal/abnormal . MPV (test code = 9.6 fL 9.5-12.9 46242-8) NRBC/100 WBC (test See_Comment [Automat ed code = 3291599358) message] The system which generated this result transmit mar reference range : 0.0 - 10.0 /100 WBCs. The reference range was not used to interpret this result as normal/abnormal . NRBC x10^3 (test code See_Comment [Auto mated = 1342526148) message] The system which generated this result transmit mar reference range : 10*3/?L. The reference range was not used to interpret this result as normal/abnormal . GRAN MAT (NEUT) % 77.1 % (test code = 770-8) IMM GRAN % (test code 0.40 % = 7864353654) LYMPH % (test code = 14.9 % 736-9) MONO % (test code = 6.8 % 5905-5) EOS % (test code = 0.5 % 713-8) BASO % (test code = 0.3 % 706-2) GRAN MAT x10^3(ANC) 11.31 10*3/uL 1.88-7.09 H (test code = 1523412754) IMM GRAN x10^3 (test 0.06 10*3/uL 0.00-0.06 code = 4776368583) LYMPH x10^3 (test code 2.18 10*3/uL 1.32-3.29 = 731-0) MONO x10^3 (test code 0.99 10*3/uL 0.33-0.92 H = 742-7) EOS x10^3 (test code = 0.08 10*3/uL 0.03-0.39 711-2) BASO x10^3 (test code 0.04 10*3/uL 0.01-0.07 = 704-7) Lab Interpretation Abnormal (test code = 46536-3) [facility] [id number] 15:06:36 Test Item Value Reference Range Interpretation Comments ABO & RH (test code A Positive Performe d at [facility] = 20) Laboratory [facility] [employer] Blood Bank2 [address] [place] [address] 4Toll Free: [phone] 266CLIA No. [id number] IAT (test code = Negative Performed a t [facility] 1185) Laboratory [facility] Blood [facility] [place], [place] [address] 4Toll Free: [id number] [facility] [id number] 15:06:36 Test Item Value Reference Range Interpretation Comments ABO & RH (test code A Positive Performe d at [facility] = 20) Laboratory [facility] [address] [place], [place] [address] 4Toll Free: [phone] 266CLIA No. [id number] IAT (test code = Negative Performed a t [facility] 1185) Laboratory [facility] [employer] Blood Bank[address] [place], [place] [address] 4Toll Free: [id number] [facility] (NA, K, CL, CO2, GLUCOSE, BUN, CREATININE, CA)2022-06-03 09:50:20 Test Item Value Reference Range Interpretation Comments NA (test code = 136 mmol/L 135-145 4699967414) K (test code = 3.7 mmol/L 3.5-5.0 5596729893) CL (test code = 107 mmol/L 98-108 9347274861) CO2 TOTAL (test code = 24 mmol/L 23-31 4099151889) AGAP (test code = 2-16 2340667633) BUN (test code = 13 mg/dL 7-23 1398065078) GLUCOSE (test code = 120 mg/dL 70-110 H 3236255576) CREATININE (test code = 0.71 mg/dL 0.50-1.04 1256389305) CALCIUM (test code = 8.4 mg/dL 8.6-10.6 L 7693110022) eGFR (test code = mL/min/1.73m2 3683618657) MELISSA (test code = MELISSA) Association of Glomerular Filtration Rate (GFR) and Staging of Kidney Disease* + --+ --+ ------+| GFR (mL/min/1.73 m2) ?| With Kidney Damage ?| ?Without Kidney Damage+ --------+ --------+ +| ?>90 ?| ?Stage one ?| ? Normal ?+ ---+ ---+ -------+| ?60-89 ?| ?Stage two ?| ? Decreased GFR ? + --+ --+ ------+| ?30-59 ?| ?Stage three ?| ? Stage three ? + --+ --+ ------+| ?15-29 ?| ?Stage four ? | ? Stage four ?+ ---+ ---+ -------+| ?<15 (or dialysis) ? ?| ?Stage five ? | ? Stage five ?+ ---+ ---+ -------+ *Each stage assumes the associated GFR level has been in effect for at least three months. ?Stages 1 to 5, with or without kidney disease, indicate chronic kidney disease. Notes: Determination of stages one and two (with eGFR >59mL/min/1.73 m2) requires estimation of kidney damage for at least three months as defined by structural or functional abnormalities of the kidney, manifested by either:Pathological abnormalities or Markers of kidney damage (including abnormalities in the composition of the blood or urine or abnormalities in imaging tests). Lab Interpretation Abnormal (test code = 89962-7) [facility] (NA, K, CL, CO2, GLUCOSE, BUN, CREATININE, CA)2022-06-03 09:50:20 Test Item Value Reference Range Interpretation Comments NA (test code = 136 mmol/L 135-145 9397211292) K (test code = 3.7 mmol/L 3.5-5.0 4195875685) CL (test code = 107 mmol/L 98-108 1043056216) CO2 TOTAL (test code = 24 mmol/L 23-31 9250249668) AGAP (test code = 2-16 3657920643) BUN (test code = 13 mg/dL 7-23 3279174688) GLUCOSE (test code = 120 mg/dL 70-110 H 5232491458) CREATININE (test code = 0.71 mg/dL 0.50-1.04 6585219482) CALCIUM (test code = 8.4 mg/dL 8.6-10.6 L 4536879683) eGFR (test code = mL/min/1.73m2 0659360194) MELISSA (test code = MELISSA) Association of Glomerular Filtration Rate (GFR) and Staging of Kidney Disease* + --+ --+ ------+| GFR (mL/min/1.73 m2) ?| With Kidney Damage ?| ?Without Kidney Damage+ --------+ --------+ +| ?>90 ?| ?Stage one ?| ? Normal ?+ ---+ ---+ -------+| ?60-89 ?| ?Stage two ?| ? Decreased GFR ? + --+ --+ ------+| ?30-59 ?| ?Stage three ?| ? Stage three ? + --+ --+ ------+| ?15-29 ?| ?Stage four ? | ? Stage four ?+ ---+ ---+ -------+| ?<15 (or dialysis) ? ?| ?Stage five ? | ? Stage five ?+ ---+ ---+ -------+ *Each stage assumes the associated GFR level has been in effect for at least three months. ?Stages 1 to 5, with or without kidney disease, indicate chronic kidney disease. Notes: Determination of stages one and two (with eGFR >59mL/min/1.73 m2) requires estimation of kidney damage for at least three months as defined by structural or functional abnormalities of the kidney, manifested by either:Pathological abnormalities or Markers of kidney damage (including abnormalities in the composition of the blood or urine or abnormalities in imaging tests). Lab Interpretation Abnormal (test code = 23965-4) [facility] with [id number] 09:40:55 Test Item Value Reference Range Interpretation Comments WBC (test code = See_Comment [Automated 6690-2) message] The sy stem which generated this result transmitted reference range : 4.30 - 11.10 10*3/?L. The reference range was not used to interpret this result as normal/abnormal . RBC (test code = See_Comment L [Automated 789-8) message] The sy stem which generated this result transmitted reference range : 3.93 - 5.25 10*6/?L. The reference range was not used to interpret this result as normal/abnormal . HGB (test code = 12.4 g/dL 11.6-15.0 718-7) HCT (test code = 36.9 % 35.7-45.2 4544-3) MCV (test code = 106.6 fL 80.6-95.5 H 787-2) MCH (test code = 35.8 pg 25.9-32.8 H 785-6) MCHC (test code = 33.6 g/dL 31.6-35.1 786-4) RDW-SD (test code = 59.3 fL 39.0-49.9 H 24676-1) RDW-CV (test code = 15.1 % 12.0-15.5 788-0) PLT (test code = See_Comment [Automated 777-3) message] The sy stem which generated this result transmitted reference range : 166 - 358 10*3/ ?L. The reference r silvino was not used to interpret this result as normal/abnormal . MPV (test code = 9.3 fL 9.5-12.9 L 02954-3) NRBC/100 WBC (test See_Comment [Automat ed code = 0052999811) message] The system which generated this result transmitted reference range : 0.0 - 10.0 /100 WBCs. The refer ence range was not u sed to interpret th is result as normal/abnormal . NRBC x10^3 (test code See_Comment [Auto mated = 4202107628) message] The s ystem which generated this result transmitted reference range : 10*3/?L. The reference range was not used to interpret this result as normal/abnormal . GRAN MAT (NEUT) % 59.8 % (test code = 770-8) IMM GRAN % (test code 0.40 % = 3512980153) LYMPH % (test code = 32.0 % 736-9) MONO % (test code = 5.0 % 5905-5) EOS % (test code = 2.4 % 713-8) BASO % (test code = 0.4 % 706-2) GRAN MAT x10^3(ANC) 5.03 10*3/uL 1.88-7.09 (test code = 4895271270) IMM GRAN x10^3 (test 0.03 10*3/uL 0.00-0.06 code = 4706950838) LYMPH x10^3 (test code 2.69 10*3/uL 1.32-3.29 = 731-0) MONO x10^3 (test code 0.42 10*3/uL 0.33-0.92 = 742-7) EOS x10^3 (test code = 0.20 10*3/uL 0.03-0.39 711-2) BASO x10^3 (test code 0.03 10*3/uL 0.01-0.07 = 704-7) Lab Interpretation Abnormal (test code = 57891-3) [facility] with [id number] 09:40:55 Test Item Value Reference Range Interpretation Comments WBC (test code = See_Comment [Automated 4990-2) message] The sy stem which generated this result transmitted reference range : 4.30 - 11.10 10*3/?L. The reference range was not used to interpret this result as normal/abnormal . RBC (test code = See_Comment L [Automated 499-8) message] The sy stem which generated this result transmitted reference range : 3.93 - 5.25 10*6/?L. The reference range was not used to interpret this result as normal/abnormal . HGB (test code = 12.4 g/dL 11.6-15.0 718-7) HCT (test code = 36.9 % 35.7-45.2 4544-3) MCV (test code = 106.6 fL 80.6-95.5 H 787-2) MCH (test code = 35.8 pg 25.9-32.8 H 785-6) MCHC (test code = 33.6 g/dL 31.6-35.1 786-4) RDW-SD (test code = 59.3 fL 39.0-49.9 H 73666-0) RDW-CV (test code = 15.1 % 12.0-15.5 788-0) PLT (test code = See_Comment [Automated 777-3) message] The sy stem which generated this result transmitted reference range : 166 - 358 10*3/ ?L. The reference r silvino was not used to interpret this result as normal/abnormal . MPV (test code = 9.3 fL 9.5-12.9 L 39110-2) NRBC/100 WBC (test See_Comment [Automat ed code = 1031881901) message] The system which generated this result transmitted reference range : 0.0 - 10.0 /100 WBCs. The refer ence range was not u sed to interpret th is result as normal/abnormal . NRBC x10^3 (test code See_Comment [Auto mated = 8588652554) message] The s ystem which generated this result transmitted reference range : 10*3/?L. The reference range was not used to interpret this result as normal/abnormal . GRAN MAT (NEUT) % 59.8 % (test code = 770-8) IMM GRAN % (test code 0.40 % = 1514271527) LYMPH % (test code = 32.0 % 736-9) MONO % (test code = 5.0 % 5905-5) EOS % (test code = 2.4 % 713-8) BASO % (test code = 0.4 % 706-2) GRAN MAT x10^3(ANC) 5.03 10*3/uL 1.88-7.09 (test code = 9837410953) IMM GRAN x10^3 (test 0.03 10*3/uL 0.00-0.06 code = 8586540226) LYMPH x10^3 (test code 2.69 10*3/uL 1.32-3.29 = 731-0) MONO x10^3 (test code 0.42 10*3/uL 0.33-0.92 = 742-7) EOS x10^3 (test code = 0.20 10*3/uL 0.03-0.39 711-2) BASO x10^3 (test code 0.03 10*3/uL 0.01-0.07 = 704-7) Lab Interpretation Abnormal (test code = 91928-3) [facility] [id number] 13:36:01 Test Item Value Reference Range Interpretation Comments ABO & RH (test code A Positive Performe d at [facility] = 20) Laboratory [facility] [employer] Blood Bank[address] [place] [address] 4Toll Free: [phone] 266CLIA No. [id number] IAT (test code = Negative Performed a t [facility] 1185) Laboratory [facility] [employer] Blood Bank[address] [place] [address] 4Toll Free: [phone] 266CLIA No. [id number] [facility] and Screen - ONCE [id number] 13:36:01 Test Item Value Reference Range Interpretation Comments ABO & RH (test code A Positive Performe d at [facility] = 20) Laboratory [facility] [employer] Blood [facility] [place] [address] 4Toll Free: [phone] 266CLIA No. [id number] IAT (test code = Negative Performed a t [facility] 1185) Laboratory [facility] [employer] [facility] [address] [place] [address] 4Toll Free: [phone] 266CLIA No. [id number] [facility] Thyroid [id number] 15:24:00EXAM: US THYROIDDATE: 04/20/2018 3:24 PM CDTINDICATION: E04.2 Nontoxic multinodular goiter - E04.2 Nontoxicmultinodular goiterADDITIONAL INFORMATION: None.COMPARISON: Thyroid ultrasound 02/16/2018.TECHNIQUE: Multiplanar grayscale and color Doppler ultrasound of the neck wereobtained in the thyroid bed and surrounding soft tiussues.FINDINGS:Thyroid parenchyma: Diffusely nodular and heterogeneous..Isthmus thickness: 0.2 cm.Right thyroid size: 1.9 x 4.4 x 1.8 cm.Left thyroid size: 1.3 x 3.4 x 1.0 cm.Cervical lymph nodes: Normal.Nodule 1:Location: Mid rightSize: 1.1 x 0.8 x 0.7 cmComposition: Solid or almost completely solid (2 points).Echogenicity: Hyperechoic (1 point).Shape: Taller than wide (3 points).Margins: Smooth (0 points).Echogenic foci: Absent (0 points).Other: None.ACR TI-RADS Score: TR4 -Moderately suspicious (total 4-6 points).ACR recommendation:>=1.5 cm FNA;>=1 cm f/u in1, 2, 3,and 5 years;<1 cm no f/u or FNA. Recommendations: Follow-up in 1, 2, 3 and 5 years.Non-specific cysts/nodules that do not meet criteria for FNA or follow- up:1. Isthmus 0.5 x 0.2 x 0.2 cm hypoechoic nodule.2. Inferior right thyroid 0.6 x 0.5 x 0.6 cm isoechoic well-circumscribedlesion that is stable.3. Left inferior 0.4 x 0.5 x 0.4 cm hyperechoic well-circumscribed lesion.4. 0.5 x 0.3 x 0.5 cm inferior left hyperechoic well-circumscribed lesion.5. 5. Left superior hyperechoic 0.3 x 0.4 x 0.3 cm lesion.IMPRESSION:1. Nodule 1 listed above requires follow-up in 1, 2, 3 and 5 years.2. Nonspecific nodules/cysts as described above do not warrant tissue samplingor follow-up.3. Nodules classified by consensus TI-Rads criteria.REFERENCE:Jose FN, Tatyana WD, Kash EG, et al. ACR Thyroid Imaging, Reporting andData System (TI-RADS): White Paper of the ACR TI-RADS Committee. J Am CollRadiol. 2017; 14(5): 587-595.--Read by: David Dolan MDDictated Date/time: 04/20/18 16:34Electronically Signed by: David Dolan MD 04/20/1816:41FINAL REPORTUT PhysiciansUS Thyroid [id number] 16:33:00EXAM: US THYROIDDATE: 02/16/2018 4:06 PM CDTINDICATION: - E04.2 Nontoxic multinodular goiterCOMPARISON: 06/20/2017TECHNIQUE: Multiplanar grayscale and color Doppler ultrasound images of theneck were obtained in the area of the thyroid. DISCUSSION:Thyroid parenchyma: HeterogeneousRight thyroid size: 4.7x 2 x 2.5 cmLeft thyroid size: 3.8 x 1.4 x 1.2 cmThyroid nodule: Subcentimeter echogenic nodules areseen bilaterally mtrervoes76 x 6 x 7 mm and 6 x 5 x 6 mm on the right side in the mid and lower glandrespectively and 6 x 5 x 5 mm and 6 x 5 x 6 mm on the left side in the lowerpole.The isthmus measures 2.3 mm.IMPRESSION:Heterogeneous thyroid parenchyma containing echogenic nodules versus normalthyroid parenchyma similar to the prior exam. No interval change. Recommendations for Thyroid Nodules > 1 cmSolitary NoduleMicrocalcifications: Strongly consider US-guided FNA if = 1 cmSolid (or almost entirely solid) or coarse calcifications: Strongly considerUS-guided FNA if = 1.5 cmMixed solid and cystic or almost entirely cystic with solid mural component:Consider FNA if = 2 cmAlmost entirely cystic and none of above features and without substantialgrowth (or without prior US): US-guided FNA probably unnecessaryMultiple NodulesConsider US-guided FNA of one or more nodules, with selection prioritized onbasis of criteria (in order listed) for solitary noduleLymph Nodes PresentPresence of abnormal lymph nodes (abnormal morphology such as heterogeneousechotexture, calcifications, cystic area, or short axis diameter =0.7 cm)overrides US features of thyroid nodule(s) and should prompt US-guided FNA orbiopsy of the lymph nodes and/or ipsilateral thyroid nodule.Diffusely Enlarged GlandFNA likely unnecessary with multiple nodules of similar appearance withoutintervening thyroid parenchyma.NOTE: Recommendations apply only to nodules 1 cm or larger in size because ofthe uncertainty as to whether or not diagnosis of smaller cancers improves lifeexpectancy, as well as concern that inclusion of smaller nodules would lead bhavani excessive number of biopsies.Reference:Emelina MC, Rubio CB, Tony JW et al. Management of thyroid nodulesdetected at US: Society of Radiologists in Ultrasound consensus conferencestatement. Radiology. 2005; 237,794-800.--Read by: Jennifer Hargrove MDDictated Date/time: 02/17/18 11:44Electronically Signed by: Jennifer Hargrove MD 02/17/1811:47FINAL REPORTUT Physicians [QL[facility]] T3, [id number] 13:13:01 Test Item Value Reference Range Interpretation Comments T3 Free (test code = T3 Free) 2.90 pg/ml 2.18-3.98 [facility][QLH] T4, [id number] 13:13:01 Test Item Value Reference Range Interpretation Comments T4 Free (test code = T4 Free) 0.99 ng/dl 0.76-1.46 [facility][QL[facility]] TSH, 3RD [id number] 13:13:01 Test Item Value Reference Range Interpretation Comments TSH (test code = 25049-8) 3.340 {uIU/ml} 0.360-3.740 [facility]-Outside Consult [id number] 10:40:00EXAM: US THYROIDDATE: 07/12/2017 10:45 AM CSTINDICATION: - outside study and 2nd read at the request of the clinicianCOMPARISON: None.TECHNIQUE: Multiplanar grayscale and color Doppler ultrasound imagesof theneck were obtained in the area of the thyroid. 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 A 2ndechogenic nodule laterally in the right lobe measures 3 mm in diameter.Similarly in echogenic nodule in the left lobe laterally measures 4 x 5 mm.Another nodule in the left lobe measures 5 x 4 mm. Minimal increased internalvascularity noted in the left lobe.No suspicious microcalcifications are seen within these nodules.Color Doppler flow imaging is limited in this outside study.The isthmus measures 3.4 mm.IMPRESSION:Findings suggests chronic thyroiditis with interspersed subcentimeter echogenicnodules, may represent normal thyroid parenchyma versus nodules. No suspiciousmicrocalcifications are noted.Recommended follow-up imaging in 6 months to ensure stabili ty.Communication: The findings were discussed with Physician: Ivelisse Salcedo 07/11/2017 at 1607 hours. Recommendations for Thyroid Nodules > 1 cmSolitary NoduleMicrocalcifications: Strongly consider US-guided FNA if = 1 cmSolid (or almost entirely solid) or coarse calcifications: Strongly considerUS-guided FNA if = 1.5 cmMixed solid and cystic or almost entirely cystic withsolid mural component:Consider FNA if = 2 cmAlmost entirely cystic and none of above features and without substantialgrowth (or without prior US): US-guided FNA probably unnecessaryMultiple NodulesConsider US-guided FNA of one or more nodules, with selection prioritized onbasis of criteria (in order listed) for solitary noduleLymph Nodes PresentPresence of abnormal lymph nodes (abnormal morphology such as heterogeneousechotexture, calcifications, cystic area, or short axis diameter =0.7 cm)overridesUS features of thyroid nodule(s) and should prompt US-guided FNA orbiopsy of the lymph nodes and/or i psilateral thyroid nodule.Diffusely Enlarged GlandFNA likely unnecessary with multiple nodules of similar appearance withoutintervening thyroid parenchyma.NOTE: Recommendations apply only to nodules 1 cm or larger in size because ofthe uncertainty as to whether or not diagnosis of smaller cancers improves lifeexpectancy, as well as concern that inclusion of smaller nodules would lead bhavani excessive number of biopsies.Reference:Emelina MC, Rubio CB, Tony JW et al. Management of thyroid nodulesdetected at US: Society of Radiologists in Ultrasound consensus conferencestatement. Radiology. 2005; 2 37,[phone].--Read by: Jennifer Hargrove MDDictated Date/time: 07/12/17 11:26Electronically Signed by: Jennifer Hargrove MD 07/12/1711:32FINAL REPORTUT Physicians"
[2023-03-14 23:52] LABS: Potassium 3.5 mEq/L (3.5-5.1)
[2023-03-14 23:56] LABS: Absolute Lymphocytes (CBC) 3.8 K/uL (0.7-4.9); Hematocrit 40.6 % (36.0-45.0); Lymphocytes % 34.4 % (15.3-44.8); MPV 7.6 fL (7.6-11.3); Platelets 304 thou/uL (152-406); RBC Red Blood Cell Count 3.95 M/uL (3.86-4.86)
[2023-03-15] MEDS ORDERED: dexAMETHasone 10 MG/ML VIAL ONE (00:15)
[2023-03-15] MEDS ORDERED: DIPHENHYDRAMINE 50 MG/ML VIAL ONE (00:15)
[2023-03-15] MEDS ORDERED: METOCLOPRAMIDE 10 MG/2mL INJ ONE (00:15)
[2023-03-15] MEDS ORDERED: KETOROLAC 30 MG/ML INJ ONE (00:16)
[2023-03-15] MEDS ORDERED: ONDANSETRON 4 MG/2 ML VIAL ONE (00:16)
[2023-03-15] MEDS ORDERED: NA CHLORIDE 0.9% 1,000 ML ONE (00:16)
--- NOTE | 2023-03-15 01:50 | EDPHYS ---
Physician Documentation [facility] Name: Ivette Joshi Age: 42 yrs Sex: Female : 1980 Arrival Date: 03/14/2023 Time: 22:38 Bed 5 Private MD: ED Physician Robi Garcia HPI: 03/14 23:30 This 42 yrs old Female presents to ER via Ambulatory with complaints of Headache. cp 23:30 The patient complains of pain to the top of head and forehead. The patient describes cp the headache as aching, constant. Onset: The symptoms/episode began/occurred today, about 1500. Associated signs and symptoms: Pertinent positives: nausea, vomiting, Pertinent negatives: altered mental status, fever, neck stiffness, paresthesias. Severity of symptoms: in the emergency department the pain is unchanged, despite home interventions. Headache History: The patient has had previous headaches and this one is similar to previous episodes. 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 - Social history:: Smoking status: Patient reports the use of cigarette tobacco products, smokes one pack cigarettes per day. ROS: 23:35 Constitutional: Negative for body aches, chills, fever, poor PO intake. cp 23:35 Eyes: Negative for injury, pain, redness, and discharge. cp 23:35 ENT: Negative for drainage from ear(s), ear pain, sore throat, difficulty swallowing, difficulty handling secretions. 23:35 Cardiovascular: Negative for chest pain. 23:35 Respiratory: Negative for cough, shortness of breath, wheezing. 23:35 Abdomen/GI: Positive for nausea and vomiting, Negative for abdominal pain, diarrhea, constipation, hematemesis. 23:35 : Negative for urinary symptoms. 23:35 Neuro: Positive for headache, Negative for altered mental status, numbness, weakness. 23:35 All other systems are negative. Exam: 23:40 Constitutional: The patient appears in no acute distress, alert, awake, cp non-diaphoretic, non-toxic, well developed, well nourished, uncomfortable. 23:40 Head/Face: Normocephalic, atraumatic. cp 23:40 Eyes: Periorbital structures: appear normal, Pupils: equal, round, and reactive to light and accomodation, Extraocular movements: intact throughout, Conjunctiva: normal, no exudate, no injection, Sclera: no appreciated abnormality, Lids and lashes: appear normal, bilaterally. 23:40 ENT: External ear(s): are unremarkable, Nose: is normal, Mouth: Lips: moist, Oral mucosa: pink and intact, moist, Posterior pharynx: is normal, airway is patent, no erythema, no exudate. 23:40 Neck: ROM/movement: limited range of motion, is not appreciated, Meningeal signs: are not present, nuchal rigidity, is not appreciated. 23:40 Chest/axilla: Inspection: normal. 23:40 Cardiovascular: Rate: normal, Rhythm: regular. 23:40 Respiratory: the patient does not display signs of respiratory distress, Respirations: normal, no use of accessory muscles, no retractions, labored breathing, is not present, Breath sounds: are clear throughout, no decreased breath sounds, no stridor, no wheezing. 23:40 Abdomen/GI: Inspection: abdomen appears normal, Palpation: abdomen is soft and non-tender, in all quadrants. 23:40 Back: pain, is absent, ROM is normal. 23:40 Skin: cellulitis, is not appreciated, no rash present. 23:40 Neuro: Orientation: to person, place \T\ time. Mentation: is normal, Cerebellar function: is grossly normal, Motor: moves all fours, strength is normal, Sensation: is normal, Gait: is steady. Vital Signs: 22:44 BP 159 / 109; Pulse 93; Resp 18 S; Temp 98.1(TE); Pulse Ox 99% on R/A; Weight 102.06 cm10 kg; Height 5 ft. 6 in. ; Pain 05/16; 03/15 01:16 BP 137 / 83; Pulse 89; Resp 16; Pulse Ox 98% on R/A; jb4 03/14 22:44 Body Mass Index 36.32 (102.06 kg, 167.64 cm) cm10 03/14 22:44 Pain Scale: Adult cm10 MDM: 03/14 23:10 Patient medically screened. cp 03/15 01:48 Data reviewed: vital signs, nurses notes, lab test result(s). cp 01:48 Differential diagnosis: intracerebral hemorrhage, migraine, sinusitis, subarachnoid cp bleed. I considered the following discharge prescriptions or medication management in the emergency department Medications were administered in the Emergency Department. See MAR. Test considered but Not performed: CT: head. Counseling: I had a detailed discussion with the patient and/or guardian regarding: the historical points, exam findings, and any diagnostic results supporting the discharge/admit diagnosis, lab results, to return to the emergency department if symptoms worsen or persist or if there are any questions or concerns that arise at home. Response to treatment: the patient's symptoms have markedly improved after treatment, and as a result, I will discharge patient. 03/14 23:10 Order name: BMP; Complete Time: 01:22 cp 03/14 23:10 Order name: CBC with Diff; Complete Time: 01:22 cp 03/14 23:10 Order name: IV; Complete Time: 23:36 cp 03/15 01:22 Order name: PO challenge; Complete Time: 01:48 cp Administered Medications: 00:10 Drug: NS 0.9% IV 1000 ml Route: IV; Rate: 1 bolus; Site: right forearm; jb4 00:10 Drug: metoCLOPramide IVP 10 mg Route: IVP; Site: right forearm; jb4 01:48 Follow up: Response: No adverse reaction; Marked relief of symptoms jb4 00:10 Drug: diphenhydrAMINE IVP 25 mg Route: IVP; Site: right forearm; jb4 01:48 Follow up: Response: No adverse reaction; Marked relief of symptoms jb4 00:10 Drug: Ketorolac IVP 15 mg Route: IVP; Site: right forearm; jb4 01:48 Follow up: Response: No adverse reaction; Marked relief of symptoms jb4 00:10 Drug: Ondansetron IVP 4 mg Route: IVP; Site: right forearm; jb4 01:48 Follow up: Response: No adverse reaction; Marked relief of symptoms jb4 00:10 Drug: Decadron - Dexamethasone IVP 10 mg Route: IVP; Site: right antecubital; jb4 01:48 Follow up: Response: No adverse reaction; Marked relief of symptoms jb4 Disposition Summary: 03/15/23 01:49 Discharge Ordered Location: Home cp Problem: new cp Symptoms: have improved cp Condition: Stable cp Diagnosis - Headache cp Followup: cp - With: Private Physician - When: 2 - 3 days - Reason: Recheck today's complaints Discharge Instructions: - Discharge Summary Sheet cp - Migraine Headache cp Forms: - Medication Reconciliation Form cp - Thank You Letter cp - Antibiotic Education cp - Prescription Opioid Use cp - Patient Portal Instructions cp Prescriptions: - Reglan 10 mg Oral Tablet - take 1 tablet by ORAL route every 6 hours take 30 minutes before meals and at cp bedtime; 20 tablet; Refills: 0, Product Selection Permitted - Zofran 4 mg Oral Tablet - take 1 tablet by ORAL route every 12 hours As needed; 20 tablet; Refills: 0, cp Product Selection Permitted Signatures: Dispatcher [employer] EDMS Ministerio Schneider PA PA cp Bryson, James RN RN jb4 Earline Salinas RN RN cm10
--- NOTE | 2023-03-15 01:50 | ER ---
Nurse's Notes [facility] Name: Ivette Joshi Age: 42 yrs Sex: Female : 1980 Arrival Date: 03/14/2023 Time: 22:38 Bed 5 Private MD: Diagnosis: Headache Presentation: 03/14 22:44 Chief complaint: Patient states: "I have a migraine that started at 1500. I have taken cm10 ibuprofen with no relief." Pt states that she has nausea, vomiting and diarrhea. Pt also reports photosensitivity. Pt has history of migraines, but ran out of her medicine. Coronavirus screen: Vaccine status: Patient reports being unvaccinated. Client denies travel out of the [place] in the last 14 days. Ebola Screen: Patient denies travel to an Ebola-affected area in the 21 days before illness onset. No symptoms or risks identified at this time. Initial Sepsis Screen: Does the patient meet any 2 criteria? No. Patient's initial sepsis screen is negative. Does the patient have a suspected source of infection? No. Patient's initial sepsis screen is negative. Risk Assessment: Do you want to hurt yourself or someone else? Patient reports no desire to harm self or others. Onset of symptoms was March 14, 2023. 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 - Social history:: Smoking status: Patient reports the use of cigarette tobacco products, smokes one pack cigarettes per day. Screenin/09 01:57 [facility] ED Fall Risk Assessment (Adult) History of falling in the last 3 months, jb4 including since admission No falls in past 3 months (0 pts) Confusion or Disorientation No (0 pts) Score/Fall Risk Level 0 - 2 = Low Risk Oriented to surroundings, Maintained a safe environment. Abuse screen: Denies threats or abuse. Nutritional screening: No deficits noted. Tuberculosis screening: No symptoms or risk factors identified. Assessment: 03/14 23:00 General: Appears in no apparent distress. uncomfortable, Behavior is calm, cooperative, jb4 appropriate for age. Pain: Complains of pain in Headache Pain does not radiate. Pain currently is 10 out of 10 on a pain scale. Neuro: Level of Consciousness is awake, alert, obeys commands, Oriented to person, place, time, situation. Cardiovascular: Patient's skin is warm and dry. Respiratory: Airway is patent Respiratory effort is even, unlabored, Respiratory pattern is regular, symmetrical. GI: No signs and/or symptoms were reported involving the gastrointestinal system. : No signs and/or symptoms were reported regarding the genitourinary system. EENT: No signs and/or symptoms were reported regarding the EENT system. Derm: Skin is intact, Skin is pink, warm \\T\\ dry. Musculoskeletal: Circulation, motion, and sensation intact. Range of motion: intact in all extremities. 03/15 00:00 Reassessment: Patient appears in no apparent distress at this time. Patient and/or jb4 family updated on plan of care and expected duration. Pain level reassessed. Patient is alert, oriented x 3, equal unlabored respirations, skin warm/dry/pink. 01:16 Reassessment: Patient appears in no apparent distress at this time. Patient and/or jb4 family updated on plan of care and expected duration. Pain level reassessed. Patient is alert, oriented x 3, equal unlabored respirations, skin warm/dry/pink. Patient states feeling better. Patient states symptoms have improved. Vital Signs: 03/14 22:44 BP 159 / 109; Pulse 93; Resp 18 S; Temp 98.1(TE); Pulse Ox 99% on R/A; Weight 102.06 cm10 kg; Height 5 ft. 6 in. ; Pain 10/10; 03/15 01:16 BP 137 / 83; Pulse 89; Resp 16; Pulse Ox 98% on R/A; jb4 03/14 22:44 Body Mass Index 36.32 (102.06 kg, 167.64 cm) cm10 03/14 22:44 Pain Scale: Adult cm10 ED Course: 03/14 22:39 Patient arrived in ED. am2 22:45 Ministerio Schneider PA is PHCP. cp 22:45 Robi Garcia MD is Attending Physician. cp 22:46 Triage completed. cm10 22:47 Arm band placed on Patient placed in an exam room, on a stretcher. cm10 23:36 Buck Mcmahon, RN is Primary Nurse. jb4 03/15 01:57 Patient has correct armband on for positive identification. Placed in gown. Bed in low jb4 position. Call light in reach. Side rails up X 1. Client placed on continuous cardiac and pulse oximetry monitoring. NIBP monitoring applied. 01:57 No provider procedures requiring assistance completed. IV discontinued, intact, jb4 bleeding controlled, No redness/swelling at site. Pressure dressing applied. Administered Medications: 00:10 Drug: NS 0.9% IV 1000 ml Route: IV; Rate: 1 bolus; Site: right forearm; jb4 00:10 Drug: metoCLOPramide IVP 10 mg Route: IVP; Site: right forearm; jb4 01:48 Follow up: Response: No adverse reaction; Marked relief of symptoms jb4 00:10 Drug: diphenhydrAMINE IVP 25 mg Route: IVP; Site: right forearm; jb4 01:48 Follow up: Response: No adverse reaction; Marked relief of symptoms jb4 00:10 Drug: Ketorolac IVP 15 mg Route: IVP; Site: right forearm; jb4 01:48 Follow up: Response: No adverse reaction; Marked relief of symptoms jb4 00:10 Drug: Ondansetron IVP 4 mg Route: IVP; Site: right forearm; jb4 01:48 Follow up: Response: No adverse reaction; Marked relief of symptoms jb4 00:10 Drug: Decadron - Dexamethasone IVP 10 mg Route: IVP; Site: right antecubital; jb4 01:48 Follow up: Response: No adverse reaction; Marked relief of symptoms jb4 Outcome: 01:49 Discharge ordered by MD. cp 01:57 Discharged to home ambulatory. jb4 01:57 Condition: stable 01:57 Discharge instructions given to patient, Instructed on discharge instructions, follow up and referral plans. medication usage, Demonstrated understanding of instructions, follow-up care, medications, Prescriptions given X 2. 01:57 Patient left the ED. jb4 Signatures: Ministerio Schneider PA PA cp Bryson, James, RN RN jb4 Jain, Ivette am2 Brad, Earline, RN RN cm10
[2023-03-15 02:22] VITALS: TEMP 98.1
[2023-03-15 02:23] VITALS: BP 137/83; O2SAT 98
== END 2023-03-15 01:57 | disposition home or self-care (01) ==
LOC: ER 22:38
DX: R51.9 Headache, unspecified (principal); R11.2 Nausea with vomiting, unspecified; F17.210 Nicotine dependence, cigarettes, uncomplicated
CPT/HCPCS: 85025; 80048; 36415; J2765; J1200; J1100; J2405; J7030

== ENCOUNTER 2023-03-15 17:37 | Emergency (ER) | payer OTHER ==
--- OUTSIDE RECORDS SUMMARY | 2023-03-15 17:56 | XMS REPORT | Continuity of Care Document ---
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 every Medical tablet morning. Branch levothyroxi 2022-0 Yes [id number] 137ug Take 1 [facility] ne 4-14 tablet by ity of (EUTHYROX) 00:00: mouth [place] 137 mcg 00 every Medical tablet morning. Branch levothyroxi 2022-0 Yes [id number] 137ug Take 1 [facility] ne 4-14 tablet by ity of (EUTHYROX) 00:00: mouth [place] 137 mcg 00 every Medical tablet morning. Branch levothyroxi 2022-0 Yes [id number] 137ug Take 1 [facility] ne 4-14 tablet by ity of (EUTHYROX) 00:00: mouth [place] 137 mcg 00 every Medical tablet morning. Branch levothyroxi 2022-0 Yes [id number] 137ug Take 1 [facility] ne 4-14 tablet by ity of (EUTHYROX) 00:00: mouth [place] 137 mcg 00 every Medical tablet morning. Branch levothyroxi 2022-0 Yes [id number] 137ug Take 1 [facility] ne 4-14 tablet by ity of (EUTHYROX) 00:00: mouth [place] 137 mcg 00 every Medical tablet morning. Branch levothyroxi 2022-0 Yes [id number] 137ug Take 1 [facility] ne 4-14 tablet by ity of (EUTHYROX) 00:00: mouth [place] 137 mcg 00 every Medical tablet morning. Branch levothyroxi 2022-0 Yes [id number] 137ug Take 1 [facility] ne 4-14 tablet by ity of (EUTHYROX) 00:00: mouth [place] 137 mcg 00 every Medical tablet morning. Branch levothyroxi 2022-0 Yes [id number] 137ug Take 1 [facility] ne 4-14 tablet by ity of (EUTHYROX) 00:00: mouth [place] 137 mcg 00 every Medical tablet morning. Branch levothyroxi 2022-0 Yes [id number] 137ug Take 1 [facility] ne 4-14 tablet by ity of (EUTHYROX) 00:00: mouth [place] 137 mcg 00 every Medical tablet morning. Branch levothyroxi 2022-0 Yes [id number] 137ug Take 1 [facility] ne 4-14 tablet by ity of (EUTHYROX) 00:00: mouth [place] 137 mcg 00 every Medical tablet morning. Branch levothyroxi 2022-0 Yes [id number] 137ug Take 1 [facility] ne 4-14 tablet by ity of (EUTHYROX) 00:00: mouth [place] 137 mcg 00 every Medical tablet morning. Branch omeprazole 3-0 2023- No 40mg Take 1 [facility] ers 40 mg 4-12 04-12 capsule by ity of capsule 12:22: 00:00 mouth in [place] 29 :00 the Medical morning. Branch Takes at night per patient omeprazole 2023-0 2023- No 40mg Take 1 [facility] ers 40 mg 4-12 04-12 capsule by ity of capsule 12:22: 00:00 mouth in [place] 29 :00 the Medical morning. Branch Takes at night per patient omeprazole 2023-0 2023- No 40mg Take 1 [facility] ers 40 mg 4-12 04-12 capsule by ity of capsule 12:22: 00:00 mouth in [place] 29 :00 the Medical morning. Branch Takes at night per patient fexofenadin 2022-0 Yes [id number] 180mg Take 1 [facility] e (LEONCIO 4-12 tablet by ity of ALLERGY) 00:00: mouth in [place] 180 mg 00 the Medical tablet morning. Branch omeprazole 2022-0 Yes [id number] 40mg Take 1 [facility] 40 mg 4-12 capsule by ity of capsule 00:00: mouth in [place] 00 the Medical morning. Branch fexofenadin 3-0 Yes [id number] 180mg Take 1 [facility] e (LEONCIO 4-12 tablet by ity of ALLERGY) 00:00: mouth in [place] 180 mg 00 the Medical tablet morning. Branch omeprazole 3-0 Yes [id number] 40mg Take 1 [facility] 40 mg 4-12 capsule by ity of capsule 00:00: mouth in [place] 00 the Medical morning. Branch fexofenadin 2022-0 Yes [id number] 180mg Take 1 [facility] e (LEONCIO 4-12 tablet by ity of ALLERGY) 00:00: mouth in [place] 180 mg 00 the Medical tablet morning. Branch omeprazole 2022-0 Yes [id number] 40mg Take 1 [facility] 40 mg 4-12 capsule by ity of capsule 00:00: mouth in [place] 00 the Medical morning. Branch fexofenadin 2022-0 Yes [id number] 180mg Take 1 [facility] e (LEONCIO 4-12 tablet by ity of ALLERGY) 00:00: mouth in [place] 180 mg 00 the Medical tablet morning. Branch omeprazole 2022-0 Yes [id number] 40mg Take 1 [facility] 40 mg 4-12 capsule by ity of capsule 00:00: mouth in [place] 00 the Medical morning. Branch fexofenadin 2022-0 Yes [id number] 180mg Take 1 [facility] e (LEONCIO 4-12 tablet by ity of ALLERGY) 00:00: mouth in [place] 180 mg 00 the Medical tablet morning. Branch omeprazole 3-0 Yes [id number] 40mg Take 1 [facility] 40 mg 4-12 capsule by ity of capsule 00:00: mouth in [place] 00 the Medical morning. Branch fexofenadin 3-0 Yes [id number] 180mg Take 1 [facility] e (LEONCIO 4-12 tablet by ity of ALLERGY) 00:00: mouth in [place] 180 mg 00 the Medical tablet morning. Branch omeprazole 3-0 Yes [id number] 40mg Take 1 [facility] 40 mg 4-12 capsule by ity of capsule 00:00: mouth in [place] 00 the Medical morning. Branch fexofenadin 3-0 Yes [id number] 180mg Take 1 [facility] e (LEONCIO 4-12 tablet by ity of ALLERGY) 00:00: mouth in [place] 180 mg 00 the Medical tablet morning. Branch omeprazole 2023-0 Yes [id number] 40mg Take 1 [facility] 40 mg 4-12 capsule by ity of capsule 00:00: mouth in [place] 00 the Medical morning. Branch fexofenadin 3-0 Yes [id number] 180mg Take 1 [facility] e (LEONCIO 4-12 tablet by ity of ALLERGY) 00:00: mouth in [place] 180 mg 00 the Medical tablet morning. Branch omeprazole 3-0 Yes [id number] 40mg Take 1 [facility] 40 mg 4-12 capsule by ity of capsule 00:00: mouth in [place] 00 the Medical morning. Branch fexofenadin 3-0 Yes [id number] 180mg Take 1 [facility] e (LEONCIO 4-12 tablet by ity of ALLERGY) 00:00: mouth in [place] 180 mg 00 the Medical tablet morning. Branch omeprazole 3-0 Yes [id number] 40mg Take 1 [facility] 40 mg 4-12 capsule by ity of capsule 00:00: mouth in [place] 00 the Medical morning. Branch fexofenadin 3-0 Yes [id number] 180mg Take 1 [facility] e (LEONCIO 4-12 tablet by ity of ALLERGY) 00:00: mouth in [place] 180 mg 00 the Medical tablet morning. Branch omeprazole 3-0 Yes [id number] 40mg Take 1 [facility] 40 mg 4-12 capsule by ity of capsule 00:00: mouth in [place] 00 the Medical morning. Branch fexofenadin 3-0 Yes [id number] 180mg Take 1 [facility] e (LEONCIO 4-12 tablet by ity of ALLERGY) 00:00: mouth in [place] 180 mg 00 the Medical tablet morning. Branch omeprazole 3-0 Yes [id number] 40mg Take 1 [facility] 40 mg 4-12 capsule by ity of capsule 00:00: mouth in [place] 00 the Medical morning. Branch fexofenadin 2023-0 Yes [id number] 180mg Take 1 [facility] e (LEONCIO 4-12 tablet by ity of ALLERGY) 00:00: mouth in [place] 180 mg 00 the Medical tablet morning. Branch omeprazole 2023-0 Yes [id number] 40mg Take 1 [facility] 40 mg 4-12 capsule by ity of capsule 00:00: mouth in [place] 00 the Medical morning. Branch fexofenadin 3-0 Yes [id number] 180mg Take 1 [facility] e (LEONCIO 4-12 tablet by ity of ALLERGY) 00:00: mouth in [place] 180 mg 00 the Medical tablet morning. Branch omeprazole 2022-0 Yes [id number] 40mg Take 1 [facility] 40 mg 4-12 capsule by ity of capsule 00:00: mouth in [place] 00 the Medical morning. Branch fexofenadin 2022-0 Yes [id number] 180mg Take 1 [facility] e (LEONCIO 4-12 tablet by ity of ALLERGY) 00:00: mouth in [place] 180 mg 00 the Medical tablet morning. Branch omeprazole 2022-0 Yes [id number] 40mg Take 1 [facility] 40 mg 4-12 capsule by ity of capsule 00:00: mouth in [place] 00 the Medical morning. Branch fexofenadin 2022-0 Yes [id number] 180mg Take 1 [facility] e (LEONCIO 4-12 tablet by ity of ALLERGY) 00:00: mouth in [place] 180 mg 00 the Medical tablet morning. Branch omeprazole 2022-0 Yes [id number] 40mg Take 1 [facility] 40 mg 4-12 capsule by ity of capsule 00:00: mouth in [place] 00 the Medical morning. Branch fexofenadin 2022-0 Yes [id number] 180mg Take 1 [facility] e (LEONCIO 4-12 tablet by ity of ALLERGY) 00:00: mouth in [place] 180 mg 00 the Medical tablet morning. Branch omeprazole 2022-0 Yes [id number] 40mg Take 1 [facility] 40 mg 4-12 capsule by ity of capsule 00:00: mouth in [place] 00 the Medical morning. Branch fexofenadin 2022-0 Yes [id number] 180mg Take 1 [facility] e (LEONCIO 4-12 tablet by ity of ALLERGY) 00:00: mouth in [place] 180 mg 00 the Medical tablet morning. Branch omeprazole 2022-0 Yes [id number] 40mg Take 1 [facility] 40 mg 4-12 capsule by ity of capsule 00:00: mouth in [place] 00 the Medical morning. Branch fexofenadin 3-0 Yes [id number] 180mg Take 1 [facility] e (LEONCIO 4-12 tablet by ity of ALLERGY) 00:00: mouth in [place] 180 mg 00 the Medical tablet morning. Branch omeprazole 2023-0 Yes [id number] 40mg Take 1 [facility] 40 mg 4-12 capsule by ity of capsule 00:00: mouth in [place] 00 the Medical morning. Branch fexofenadin 2022-0 Yes [id number] 180mg Take 1 [facility] e (LEONCIO 4-12 tablet by ity of ALLERGY) 00:00: mouth in [place] 180 mg 00 the Medical tablet morning. Branch omeprazole 2022-0 Yes [id number] 40mg Take 1 [facility] 40 mg 4-12 capsule by ity of capsule 00:00: mouth in [place] 00 the Medical morning. Branch fexofenadin 2022-0 Yes [id number] 180mg Take 1 [facility] e (LEONCIO 4-12 tablet by ity of ALLERGY) 00:00: mouth in [place] 180 mg 00 the Medical tablet morning. Branch omeprazole 2022-0 Yes [id number] 40mg Take 1 [facility] 40 mg 4-12 capsule by ity of capsule 00:00: mouth in [place] 00 the Medical morning. Branch fexofenadin 2022-0 Yes [id number] 180mg Take 1 [facility] e (LEONCIO 4-12 tablet by ity of ALLERGY) 00:00: mouth in [place] 180 mg 00 the Medical tablet morning. Branch omeprazole 2022-0 Yes [id number] 40mg Take 1 [facility] 40 mg 4-12 capsule by ity of capsule 00:00: mouth in [place] 00 the Medical morning. Branch fexofenadin 2022-0 Yes [id number] 180mg Take 1 [facility] e (LEONCIO 4-12 tablet by ity of ALLERGY) 00:00: mouth in [place] 180 mg 00 the Medical tablet morning. Branch omeprazole 2022-0 Yes [id number] 40mg Take 1 [facility] 40 mg 4-12 capsule by ity of capsule 00:00: mouth in [place] 00 the Medical morning. Branch famotidine 2022-0 3- No [id number] 20mg Take 1 [facility] 20 mg 4-12 04-12 tablet by ity of tablet 00:00: 00:00 mouth in [place] 00 :00 the Medical morning Branch and 1 tablet in the evening. famotidine 2022-0 3- No [id number] 20mg Take 1 [facility] 20 mg 4-12 04-12 tablet by ity of tablet 00:00: 00:00 mouth in [place] 00 :00 the Medical morning Branch and 1 tablet in the evening. famotidine 3-0 2023- No [id number] 20mg Take 1 [facility] 20 mg 11-16-12 tablet by ity of tablet 00:00: 00:00 mouth in [place] 00 :00 the Medical morning Branch and 1 tablet in the evening. methocarbam 2023-0 Yes [id number] 750mg Take 1 [facility] oL 750 mg 3-30 [id number] tablet by ity of tablet 00:00: mouth [address] times [place] daily. pregabalin 2023-0 Yes [id number] 200mg Take 1 [facility] (LYRICA) 3-30 capsule by ity o f 200 mg 00:00: mouth in [place] capsule 00 the Medical morning Branch and 1 capsule at noon and 1 capsule in the evening. methocarbam 3-0 Yes [id number] 750mg Take 1 [facility] oL 750 mg 3-30 [id number] tablet by ity of tablet 00:00: mouth [address] times [place] daily. pregabalin 2023-0 Yes [id number] 200mg Take 1 [facility] (LYRICA) 3-30 capsule by ity o f 200 mg 00:00: mouth in [place] capsule 00 the Medical morning Branch and 1 capsule at noon and 1 capsule in the evening. methocarbam 3-0 Yes [id number] 750mg Take 1 [facility] oL 750 mg 3-30 [id number] tablet by ity of tablet 00:00: mouth [address] daily[address] pregabalin 2023-0 Yes [id number] 200mg Take 1 [facility] (LYRICA) 3-30 capsule by ity o f 200 mg 00:00: mouth in [place] capsule 00 the Medical morning Branch and 1 capsule at noon and 1 capsule in the evening. methocarbam 2023-0 Yes [id number] 750mg Take 1 [facility] oL 750 mg 3-30 [id number] tablet by ity of tablet 00:00: mouth [address] times [place] daily. pregabalin 2023-0 Yes [id number] 200mg Take 1 [facility] (LYRICA) 3-30 capsule by ity o f 200 mg 00:00: mouth in [place] capsule 00 the Medical morning Branch and 1 capsule at noon and 1 capsule in the evening. methocarbam 2023-0 Yes [id number] 750mg Take 1 [facility] oL 750 mg 3-30 [id number] tablet by ity of tablet 00:00: mouth (four) Medical times Branch daily. pregabalin 2023-0 Yes [id number] 200mg Take 1 [facility] (LYRICA) 3-30 capsule by ity o f 200 mg 00:00: mouth in [place] capsule 00 the Medical morning Branch and 1 capsule at noon and 1 capsule in the evening. ketorolac 2023-0 Yes [id number] 10mg Take 1 [facility] 10 mg 3-30 [id number] tablet by ity of tablet 00:00: mouth 3 (three) Medical times Branch daily as needed for Pain (scale 7-10). methocarbam 2023-0 Yes [id number] 750mg Take 1 [facility] oL 750 mg 3-30 [id number] tablet by ity of tablet 00:00: mouth 4 () Medical times Branch daily. pregabalin 2023-0 Yes [id number] 200mg Take 1 [facility] (LYRICA) 3-30 capsule by ity o f 200 mg 00:00: mouth in [place] capsule the Medical morning Branch and 1 capsule at noon and 1 capsule in the evening. ketorolac 2023-0 Yes [id number] 10mg Take 1 [facility] 10 mg 3-30 [id number] tablet by ity of tablet 00:00: mouth (three) Medical times Branch daily as needed for Pain (scale 7-10). methocarbam 2023-0 Yes [id number] 750mg Take 1 [facility] oL 750 mg 3-30 [id number] tablet by ity of tablet 00:00: mouth (four) Medical times Branch daily. pregabalin 2023-0 Yes [id number] 200mg Take 1 [facility] (LYRICA) 3-30 capsule by ity o f 200 mg 00:00: mouth in [place] capsule the Medical morning Branch and 1 capsule at noon and 1 capsule in the evening. ketorolac 2023-0 Yes [id number] 10mg Take 1 [facility] 10 mg 3-30 [id number] tablet by ity of tablet 00:00: mouth 3 (three) Medical times Branch daily as needed for Pain (scale 7-10). methocarbam 2023-0 Yes [id number] 750mg Take 1 [facility] oL 750 mg 3-30 [id number] tablet by ity of tablet 00:00: mouth () Medical times Branch daily. pregabalin 2023-0 Yes [id number] 200mg Take 1 [facility] (LYRICA) 3-30 capsule by ity o f 200 mg 00:00: mouth [place] the Medical morning Branch and 1 capsule at noon and 1 capsule in the evening. ketorolac 2023-0 Yes [id number] 10mg Take 1 [facility] 10 mg 3-30 [id number] tablet by ity of tablet 00:00: mouth (three) Medical times Branch daily as needed for Pain (scale 7-10). methocarbam 2023-0 Yes [id number] 750mg Take 1 [facility] oL 750 mg 3-30 [id number] tablet by ity of tablet 00:00: mouth () Medical times Branch daily. pregabalin 2023-0 Yes [id number] 200mg Take 1 [facility] (LYRICA) 3-30 capsule by ity o f 200 mg 00:00: mouth [place] the Medical morning Branch and 1 capsule at noon and 1 capsule in the evening. ketorolac 2023-0 Yes [id number] 10mg Take 1 [facility] 10 mg 3-30 [id number] tablet by ity of tablet 00:00: mouth () Medical times Branch daily as needed for Pain (scale 7-10). methocarbam 2023-0 Yes [id number] 750mg Take 1 [facility] oL 750 mg 3-30 [id number] tablet by ity of tablet 00:00: mouth () Medical times Branch daily. pregabalin 2023-0 Yes [id number] 200mg Take 1 [facility] (LYRICA) 3-30 capsule by ity o f 200 mg 00:00: mouth in [place] capsule the Medical morning Branch and 1 capsule at noon and 1 capsule in the evening. ketorolac 2023-0 Yes [id number] 10mg Take 1 [facility] 10 mg 3-30 [id number] tablet by ity of tablet 00:00: mouth (three) Medical times Branch daily as needed for Pain (scale 7-10). methocarbam 2023-0 Yes [id number] 750mg Take 1 [facility] oL 750 mg 3-30 [id number] tablet by ity of tablet 00:00: mouth () Medical times Branch daily. pregabalin 2023-0 Yes [id number] 200mg Take 1 [facility] (LYRICA) 3-30 capsule by ity o f 200 mg 00:00: mouth in [place] capsule the Medical morning Branch and 1 capsule at noon and 1 capsule in the evening. ketorolac 2023-0 Yes [id number] 10mg Take 1 [facility] 10 mg 3-30 [id number] tablet by ity of tablet 00:00: mouth 3 (three) Medical times Branch daily as needed for Pain (scale 7-10). methocarbam 2023-0 Yes [id number] 750mg Take 1 [facility] oL 750 mg 3-30 [id number] tablet by ity of tablet 00:00: mouth 4 (four) Medical times Branch daily. pregabalin 2023-0 Yes [id number] 200mg Take 1 [facility] (LYRICA) 3-30 capsule by ity o f 200 mg 00:00: mouth in [place] capsule the Medical morning Branch and 1 capsule at noon and 1 capsule in the evening. ketorolac 2023-0 Yes [id number] 10mg Take 1 [facility] 10 mg 3-30 [id number] tablet by ity of tablet 00:00: mouth 3 (three) Medical times Branch daily as needed for Pain (scale 7-10). methocarbam 2023-0 Yes [id number] 750mg Take 1 [facility] oL 750 mg 3-30 [id number] tablet by ity of tablet 00:00: mouth () Medical times Branch daily. pregabalin 2023-0 Yes [id number] 200mg Take 1 [facility] (LYRICA) 3-30 capsule by ity o f 200 mg 00:00: mouth in [place] capsule the Medical morning Branch and 1 capsule at noon and 1 capsule in the evening. methocarbam 2023-0 Yes [id number] 750mg Take 1 [facility] oL 750 mg 3-30 [id number] tablet by ity of tablet 00:00: mouth () Medical times Branch daily. pregabalin 2023-0 Yes [id number] 200mg Take 1 [facility] (LYRICA) 3-30 capsule by ity o f 200 mg 00:00: mouth in [place] capsule the Medical morning Branch and 1 capsule at noon and 1 capsule in the evening. methocarbam 2023-0 Yes [id number] 750mg Take 1 [facility] oL 750 mg 3-30 [id number] tablet by ity of tablet 00:00: mouth [address] times [place] daily. pregabalin 2023-0 Yes [id number] 200mg Take 1 [facility] (LYRICA) 3-30 capsule by ity o f 200 mg 00:00: mouth in [place] capsule the Medical morning Branch and 1 capsule at noon and 1 capsule in the evening. methocarbam 2023-0 Yes [id number] 750mg Take 1 [facility] oL 750 mg 3-30 [id number] tablet by ity of tablet 00:00: mouth [address] times [place] daily. pregabalin 2023-0 Yes [id number] 200mg Take 1 [facility] (LYRICA) 3-30 capsule by ity o f 200 mg 00:00: mouth in [place] capsule the [facility] morning Branch and 1 capsule at noon and 1 capsule in the evening. methocarbam 2023-0 Yes [id number] 750mg Take 1 [facility] oL 750 mg 3-30 [id number] tablet by ity of tablet 00:00: mouth [address] times [place] daily. pregabalin 2023-0 Yes [id number] 200mg Take 1 [facility] (LYRICA) 3-30 capsule by ity o f 200 mg 00:00: mouth in [place] capsule the [facility] morning Branch and 1 capsule at noon and 1 capsule in the evening. methocarbam 2023-0 Yes [id number] 750mg Take 1 [facility] oL 750 mg 3-30 [id number] tablet by ity of tablet 00:00: mouth [address] times [place] daily. pregabalin 2023-0 Yes [id number] 200mg Take 1 [facility] (LYRICA) 3-30 capsule by ity o f 200 mg 00:00: mouth in [place] capsule the Medical morning Branch and 1 capsule at noon and 1 capsule in the evening. methocarbam 2023-0 Yes [id number] 750mg Take 1 [facility] oL 750 mg 3-30 [id number] tablet by ity of tablet 00:00: mouth [address] times [place] daily. pregabalin 2023-0 Yes [id number] 200mg Take 1 [facility] (LYRICA) 3-30 capsule by ity o f 200 mg 00:00: mouth in [place] capsule the [facility] morning Branch and 1 capsule at noon and 1 capsule in the evening. methocarbam 2023-0 Yes [id number] 750mg Take 1 [facility] oL 750 mg 3-30 [id number] tablet by ity of tablet 00:00: mouth [place] ([facility]) Medical times [place] daily. pregabalin 2023-0 Yes [id number] 200mg Take 1 [facility] (LYRICA) 3-30 capsule by ity o f 200 mg 00:00: mouth in [place] capsule 00 the Medical morning Branch and 1 capsule at noon and 1 capsule in the evening. methocarbam 2023-0 Yes [id number] 750mg Take 1 [facility] oL 750 mg 3-30 [id number] tablet by ity of tablet 00:00: mouth [place] ([facility]) Medical times [place] daily. pregabalin 2023-0 Yes [id number] 200mg Take 1 [facility] (LYRICA) 3-30 capsule by ity o f 200 mg 00:00: mouth in [place] capsule the Medical morning Branch and 1 capsule at noon and 1 capsule in the evening. methocarbam 2023-0 Yes [id number] 750mg Take 1 [facility] oL 750 mg 3-30 [id number] tablet by ity of tablet 00:00: mouth [place] [address] ([facility] Medical times [place] daily. pregabalin 2023-0 Yes [id number] 200mg Take 1 [facility] (LYRICA) 3-30 capsule by ity o f 200 mg 00:00: mouth in [place] capsule the [facility] morning Branch and 1 capsule at noon and 1 capsule in the evening. methocarbam 2023-0 Yes [id number] 750mg Take 1 [facility] oL 750 mg 3-30 [id number] tablet by ity of tablet 00:00: mouth [place] ([facility]) Medical times [place] daily. pregabalin 2023-0 Yes [id number] 200mg Take 1 [facility] (LYRICA) 3-30 capsule by ity o f 200 mg 00:00: mouth in [place] capsule the Medical morning Branch and 1 capsule at noon and 1 capsule in the evening. methocarbam 2023-0 Yes [id number] 750mg Take 1 [facility] oL 750 mg 3-30 [id number] tablet by ity of tablet 00:00: mouth 4 [place] [address] ([facility]) Medical times [place] daily. pregabalin 2023-0 Yes [id number] 200mg Take 1 [facility] (LYRICA) 3-30 capsule by ity o f 200 mg 00:00: mouth in [place] capsule 00 the Medical morning Branch and 1 capsule at noon and 1 capsule in the evening. ketorolac 3-0 2023- No [id number] 10mg Take 1 [facility] 10 mg 3-30 [id number]- [id number] tablet by ity of tablet 00:00: 00:00 mouth 3 [place] 00 :00 (three) Medical times Branch daily as needed for Pain (scale 7-10). ketorolac 3-0 3- No [id number] 10mg Take 1 [facility] 10 mg 3-30 [id number]- [id number] tablet by ity of tablet 00:00: 00:00 mouth 3 [place] 00 :00 (three) Medical times Branch daily as needed for Pain (scale 7-10). tiZANidine 2023-0 Yes TAKE 1 Unive rs 4 mg 3-27 CAPSULE BY ity of capsule 00:00: MOUTH [place] THREE Medical TIMES Branch DAILY NEEDED FOR MUSCLE SPASM tiZANidine 2023-0 Yes TAKE 1 Unive rs 4 mg 3-27 CAPSULE BY ity of capsule 00:00: MOUTH [place] THREE Medical TIMES Branch DAILY NEEDED FOR MUSCLE SPASM tiZANidine 2023-0 Yes TAKE 1 Unive rs 4 mg 3-27 CAPSULE BY ity of capsule 00:00: MOUTH [place] THREE Medical TIMES Branch DAILY NEEDED FOR MUSCLE SPASM tiZANidine 2023-0 Yes TAKE 1 Unive rs 4 mg 3-27 CAPSULE BY ity of capsule 00:00: MOUTH [place] THREE Medical TIMES Branch DAILY NEEDED FOR MUSCLE SPASM tiZANidine 2023-0 Yes TAKE 1 Unive rs 4 mg 3-27 CAPSULE BY ity of capsule 00:00: MOUTH [place] THREE Medical TIMES Branch DAILY NEEDED FOR MUSCLE SPASM tiZANidine 2023-0 Yes TAKE 1 Unive rs 4 mg 3-27 CAPSULE BY ity of capsule 00:00: MOUTH [place] THREE Medical TIMES Branch DAILY NEEDED FOR MUSCLE SPASM tiZANidine 2023-0 Yes TAKE 1 Unive rs 4 mg 3-27 CAPSULE BY ity of capsule 00:00: MOUTH [place] THREE Medical TIMES Branch DAILY NEEDED FOR MUSCLE SPASM tiZANidine 2023-0 Yes TAKE 1 Unive rs 4 mg 3-27 CAPSULE BY ity of capsule 00:00: MOUTH [place] THREE Medical TIMES Branch DAILY NEEDED FOR MUSCLE SPASM tiZANidine Yes TAKE 1 Unive rs 4 mg 3-27 CAPSULE BY ity of capsule 00:00: MOUTH [place] 00 THREE Medical TIMES Branch DAILY NEEDED FOR MUSCLE SPASM tiZANidine 0 Yes TAKE 1 Unive rs 4 mg 3-27 CAPSULE BY ity of capsule 00:00: MOUTH [place] 00 THREE Medical TIMES Branch DAILY NEEDED FOR MUSCLE SPASM tiZANidine 0 Yes TAKE 1 Unive rs 4 mg 3-27 CAPSULE BY ity of capsule 00:00: MOUTH 00 THREE Medical TIMES Branch DAILY NEEDED FOR MUSCLE SPASM tiZANidine Yes TAKE 1 Unive rs 4 mg 3-27 CAPSULE BY ity of capsule 00:00: MOUTH 00 THREE Medical TIMES Branch DAILY NEEDED FOR MUSCLE SPASM ketorolac 2022- No [id number] 60mg Un [facility] (TORADOL) 10-18 ity of injection 20:45: 20:05 [place] 60 mg 00 :00 [facility] Branch ketorolac 0 2022- No [id number] 60mg 60 mg, Univers (TORADOL) 10-18 Intramuscu ity of injection 20:45: 20:05 [place], ONCE, [place] 60 mg 00 :00 1 dose, On [facility] 10/18/22 at 1545, Routine ketorolac 2022- No [id number] 60mg Un [place] (TORADOL) 10-18 ity of injection 20:45: 20:05 [place] 60 mg 00 :00 [facility] Branch ketorolac 2022- No [id number] 60mg 60 mg, [facility] (TORADOL) 10-18 Intramuscu ity of injection 20:45: 20:05 lar, ONCE, [place] 60 mg 00 :00 1 dose, On [facility] 10/18/22 at 1545, Routine methocarbam Yes [id number] 750mg Take 1.5 [facility] oL 500 mg 10-18 [id number] tablets by it y of tablet 00:00: mouth 4 [place] 00 (four) Medical times Branch daily. methocarbam 0 Yes [id number] 750mg Take 1.5 [facility] oL 500 mg 10-18 [id number] tablets by it y of tablet 00:00: mouth 4 (four) Medical times Branch daily. methocarbam 2022-2022- No [id number] 750mg Take 1.5 Univers oL 500 mg 3-14 11-03 [id number] tablets by i ty of tablet 00:00: 00:00 mouth 4 [place] 00 :00 (four) Medical times Branch daily. methocarbam 2022- No [id number] 750mg Take 1.5 [facility] oL 500 mg 3-14 11-03 [id number] tablets by i ty of tablet 00:00: 00:00 mouth 4 00 :00 (four) Medical times Branch daily. oxyCODONE 5 2022-0 Yes Take 1 Univ ers mg 3-12 tablet by ity of immediate 00:00: mouth [place] release 00 every six Medical tablet hours as Branch needed for pain max 4/day oxyCODONE 5 2022-0 Yes Take 1 Univ ers mg 3-12 tablet by ity of immediate 00:00: mouth [place] release 00 every six Medical tablet hours as Branch needed for pain max 4/day oxyCODONE 5 2022-0 Yes Take 1 Univ ers mg 3-12 tablet by ity of immediate 00:00: mouth [place] release 00 every six Medical tablet hours as Branch needed for pain max 4/day oxyCODONE 5 2022-0 Yes Take 1 Univ ers mg 3-12 tablet by ity of immediate 00:00: mouth [place] release 00 every six Medical tablet hours as Branch needed for pain max 4/day oxyCODONE 5 2022-0 Yes Take 1 Univ ers mg 3-12 tablet by ity of immediate 00:00: mouth [place] release 00 every six Medical tablet hours as Branch needed for pain max 4/day oxyCODONE 5 2022-0 Yes Take 1 Univ ers mg 3-12 tablet by ity of immediate 00:00: mouth [place] release 00 every six Medical tablet hours as Branch needed for pain max 4/day oxyCODONE 5 2022-0 Yes Take 1 Univ ers mg 3-12 tablet by ity of immediate 00:00: mouth [place] release 00 every six Medical tablet hours as Branch needed for pain max 4/day oxyCODONE 5 2022-0 Yes Take 1 Univ ers mg 3-12 tablet by ity of immediate 00:00: mouth [place] release 00 every six Medical tablet hours as Branch needed for pain max 4/day oxyCODONE 5 2022-0 Yes Take 1 Univ ers mg 3-12 tablet by ity of immediate 00:00: mouth [place] release 00 every six Medical tablet hours as Branch needed for pain max 4/day oxyCODONE 5 2022-0 Yes Take 1 Univ ers mg 3-12 tablet by ity of immediate 00:00: mouth [place] release 00 every six Medical tablet hours as Branch needed for pain max 4/day oxyCODONE 5 2022-0 Yes Take 1 Univ ers mg 3-12 tablet by ity of immediate 00:00: mouth [place] release 00 every six Medical tablet hours as Branch needed for pain max 4/day oxyCODONE 5 2022-0 Yes Take 1 Univ ers mg 3-12 tablet by ity of immediate 00:00: mouth [place] release 00 every six Medical tablet hours as Branch needed for pain max 4/day cyclobenzap 0 Yes 7.5mg 7.5 mg, Un claudia rine 3-11 Oral, TID, ity of (FLEXERIL) 20:00: [place] tablet 7.5 00 (after Medical mg last Branch modificati on) on 10/15/22 at 1400, Until Discontinu ed, Routine acetaminoph 2022-0 Yes 1000mg 1,000 mg, Univers en 3-11 Oral, Q8H, ity of (TYLENOL) 20:00: [place] tablet 00 (after Medical 1,000 mg last Branch modificati on) on 10/15/22 at 1400, Until Discontinu ed, Routine diazePAM 2022-0 Yes 10mg 10 mg, Univers (VALIUM) 3-11 Oral, TID, ity o f tablet 10 20:00: First dose [place] mg 00 (after Medical last Branch modificati on) on 10/15/22 at 1400, Until Discontinu ed, Routine tiZANidine 2022-0 2023- No 4mg Take 1 Univ ers 4 mg 3-11 03-11 capsule by ity of capsule 18:22: 00:00 mouth in [place] 07 :00 the Medical morning Branch and [...] 05 Medical 18 mcg Branch inhalation omeprazole 0 Yes 40mg Take 1 Unive rs 40 [...] 05 Medical 18 mcg Branch inhalation omeprazole 0 Yes 40mg Take 1 Unive rs 40 [...] mcg/actuati 05 Medical on inhaler Branch FLUTICASONE Yes 50ug Use 50 mcg Univers PROPIONATE [...] mcg/actuati 05 Medical on inhaler Branch FLUTICASONE Yes 50ug Use 50 mcg Univers PROPIONATE [...] 05 Medical 18 mcg Branch inhalation pregabalin 0 Yes 150mg 150 mg, Uni vers (LYRICA) 11 Oral, TID, ity o f capsule 150 15:15: First dose [place] mg 00 (after Medical last Branch modificati on) on [facility] 10/15/22 at 0915, Until Discontinu ed, Routine oxyCODONE 2022-0 Yes 5mg 5 mg, Univers immediate 10-15 Oral, ity of release 15:10: Q6HPRN, [place] tablet 5 mg 30 Starting Medi benjie on [facility] 10/15/22 at 0910, Until Discontinu ed, Routine, Pain (scale 4-6)
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 Restricted medication : MARCIO WOODRUFF enoxaparin 0 Yes 40mg 40 mg, Unive rs (LOVENOX) 10-15 Subcutaneo ity of injection 15:00: [place], DAILY, [place] 40 mg 00 First dose Medical on [facility] 10/15/22 at 0900, Until Discontinu ed, Routine Fluticasone 0 Yes 1{puff} 1 Puff, Univers -Salmeterol 10-15 Inhalation it y of (ADVAIR) 14:00: , Q12H, [place] 500-50 00 First dose Medical mcg/dose on [facility] inhalation 10/15/22 at disk 1 Puff 0800, Until Discontinu ed, Routine omeprazole 0 Yes 40mg 40 mg, Unive rs (PRILOSEC) 10-15 Oral, ity of capsule 40 11:30: Q24H, [place] mg 00 First dose Medical on [facility] 10/15/22 at 0530, Until Discontinu ed, Routine dexamethaso 2022- No 8mg 8 mg, Univ ers ne sod phos 10-15 0314 Intravenou i ty of PF 08:00: 06:59 s, Q12H [place] injection 8 00 :00 ABX, 6 Medica l mg doses, Branch First dose (after last reorder) on [facility] 10/15/22 at 0200, Last dose on [facility] 10/17/22 at 1400, 1 mL diazePAM 0 2022- No 5mg 5 mg, Univers (VALIUM) 10-1511 Oral, TID, ity of tablet 5 mg 02:00: 15:11 First dose [place] 00 :22 (after Medical last Branch reorder) on Mon10/14/22 at 1999, Until Discontinu ed, Routine methylPREDN 2023-0 Yes [id number] Take by Univers ISolone 4 3-11 [id number] mouth ity of mg tablets 00:00: SEE-INSTRU [place] 00 CTIONS. Medical follow Branch package directions ketorolac 2023-0 Yes [id number] 10mg Take 1 Univers 10 mg 3-11 [id number] tablet by ity of tablet 00:00: mouth [place] 00 every 6 Medical (six) Branch hours as needed for Pain (scale 7-10). methocarbam 2023-0 Yes [id number] 500mg Take 1 [facility] oL 500 mg 3-11 [id number] tablet by ity of tablet 00:00: mouth 4 [place] 00 (four) Medical times Branch daily. methylPREDN 2023-0 Yes [id number] Take by [facility] ISolone 4 3-11 [id number] mouth ity of mg tablets 00:00: SEE-INSTRU [place] 00 CTIONS. Medical follow Branch package directions ketorolac 2023-0 Yes [id number] 10mg Take 1 Univers 10 mg 3-11 [id number] tablet by ity of tablet 00:00: mouth [place] 00 every 6 Medical (six) Branch hours as needed for Pain (scale 7-10). methylPREDN 2023-0 Yes [id number] Take by [facility] ISolone 4 3-11 [id number] mouth ity of mg tablets 00:00: SEE-INSTRU [place] 00 CTIONS. Medical follow Branch package directions ketorolac 2023-0 Yes [id number] 10mg Take 1 Univers 10 mg 3-11 [id number] tablet by ity of tablet 00:00: mouth [place] 00 every 6 Medical (six) Branch hours as needed for Pain (scale 7-10). methylPREDN 2023-0 Yes [id number] Take by [facility] ISolone 4 3-11 [id number] mouth ity of mg tablets 00:00: SEE-INSTRU [place] 00 CTIONS. Medical follow Branch package directions methylPREDN 2023-0 Yes [id number] Take by Univers ISolone 4 3-11 [id number] mouth ity of mg tablets 00:00: SEE-INSTRU [place] 00 CTIONS. Medical follow Branch package directions methylPREDN 2023-0 Yes [id number] Take by [facility] 4 3-11 [id number] mouth ity of mg tablets 00:00: SEE-INSTRU [place] 00 CTIONS. Medical follow Branch package directions methylPREDN 2023-0 Yes [id number] Take by [facility] 4 3-11 [id number] mouth ity of mg tablets 00:00: SEE-INSTRU [place] 00 CTIONS. Medical follow Branch package directions methylPREDN 2023-0 Yes [id number] Take by [facility] 4 3-11 [id number] mouth ity of mg tablets 00:00: SEE-INSTRU [place] 00 CTIONS. Medical follow Branch package directions methylPREDN 2023-0 Yes [id number] Take by [facility] 4 3-11 [id number] mouth ity of mg tablets 00:00: SEE-INSTRU [place] 00 CTIONS. Medical follow Branch package directions methylPREDN 2023-0 Yes [id number] Take by [facility] 4 3-11 [id number] mouth ity of mg tablets 00:00: SEE-INSTRU [place] 00 CTIONS. Medical follow Branch package directions methylPREDN 2023-0 Yes [id number] Take by [place] [address] 3-11 [id number] mouth ity of mg tablets 00:00: SEE-INSTRU [place] 00 CTIONS. Medical follow Branch package directions methylPREDN 2023-0 Yes [id number] Take by [facility] 4 3-11 [id number] mouth ity of mg tablets 00:00: SEE-INSTRU [place] 00 CTIONS. Medical follow Branch package directions methylPREDN 2023-0 Yes [id number] Take by [facility] 4 3-11 [id number] mouth ity of mg tablets 00:00: SEE-INSTRU [place] 00 CTIONS. Medical follow Branch package directions methylPREDN 2023-0 Yes [id number] Take by [place] [address] 3-11 [id number] mouth ity of mg tablets 00:00: SEE-INSTRU [place] 00 CTIONS. Medical follow Branch package directions methylPREDN 2023-0 Yes [id number] Take by [facility] 4 3-11 [id number] mouth ity of mg tablets 00:00: SEE-INSTRU [place] 00 CTIONS. Medical follow Branch package directions methylPREDN 2023-0 Yes [id number] Take by [facility] 4 3-11 [id number] mouth ity of mg tablets 00:00: SEE-INSTRU [place] 00 CTIONS. Medical follow Branch package directions methylPREDN 2023-0 Yes [id number] Take by [facility] 4 3-11 [id number] mouth ity of mg tablets 00:00: SEE-INSTRU [place] 00 CTIONS. Medical follow Branch package directions methylPREDN 2023-0 Yes [id number] Take by [place] [address] 3-11 [id number] mouth ity of mg tablets 00:00: SEE-INSTRU [place] 00 CTIONS. Medical follow Branch package directions methylPREDN 2023-0 Yes [id number] Take by [place] [address] 3-11 [id number] mouth ity of mg tablets 00:00: SEE-INSTRU [place] 00 CTIONS. Medical follow Branch package directions methylPREDN 2023-0 Yes [id number] Take by [place] [address] 3-11 [id number] mouth ity of mg tablets 00:00: SEE-INSTRU [place] 00 CTIONS. Medical follow Branch package directions methylPREDN 2023-0 Yes [id number] Take by [place] [address] 3-11 [id number] mouth ity of mg tablets 00:00: SEE-INSTRU [place] 00 CTIONS. Medical follow Branch package directions methylPREDN 2023-0 Yes [id number] Take by [place] [address] 3-11 [id number] mouth ity of mg tablets 00:00: SEE-INSTRU [place] 00 CTIONS. Medical follow Branch package directions methylPREDN 2023-0 Yes [id number] Take by [place] [address] 3-11 [id number] mouth ity of mg tablets 00:00: SEE-INSTRU [place] 00 CTIONS. Medical follow Branch package directions methylPREDN 2023-0 Yes [id number] Take by [place] [address] 3-11 [id number] mouth ity of mg tablets 00:00: SEE-INSTRU [place] 00 CTIONS. Medical follow Branch package directions methylPREDN 2023-0 Yes [id number] Take by [place] [address] 3-11 [id number] mouth ity of mg tablets 00:00: SEE-INSTRU [place] 00 CTIONS. Medical follow Branch package directions methylPREDN 2023-0 Yes [id number] Take by [place] [address] 3-11 [id number] mouth ity of mg tablets 00:00: SEE-INSTRU [place] 00 CTIONS. Medical follow Branch package directions methylPREDN 2022- Yes [id number] Take by Univers ISolone 4 10-15103 mouth ity of mg tablets 00:00: SEE-INSTRU [place] 00 CTIONS. Medical follow Branch package directions ketorolac 2022-2022- No [id number] 10mg Take 1 Univers 10 mg 10-15103 tablet by ity of tablet 00:00: 00:00 mouth [place] 00 :00 every 6 Medical (six) Branch hours as needed for Pain (scale 7-10). ketorolac 2022-2022- No [id number] 10mg Take 1 Univers 10 mg 10-15103 tablet by ity of tablet 00:00: 00:00 mouth [place] 00 :00 every 6 Medical (six) Branch hours as needed for Pain (scale 7-10). HYDROcodone 2022-2022- No 4647 1{tbl} Take 1 U nivers -acetaminop 10-1519 tablet by it y of hen 5-325 00:00: 04:59 mouth [place] mg tablet 00 :00 every 4 Medical (four) Branch hours as needed for Pain (scale 7-10) for up to 7 days. Indication s: acute pain HYDROcodone 2022-2022- No 4647 1{tbl} Take 1 U nivers -acetaminop 10-1519 tablet by it y of hen 5-325 00:00: 04:59 mouth [place] mg tablet 00 :00 every 4 Medical (four) Branch hours as needed for Pain (scale 7-10) for up to 7 days. Indication s: acute pain HYDROcodone 2022-0 2022- No 4647 1{tbl} Take 1 U nivers -acetaminop -06 09-19 tablet by it y of hen 5-325 00:00: 04:59 mouth [place] mg tablet 00 :00 every 4 Medical (four) Branch hours as needed for Pain (scale 7-10) for up to 7 days. Indication s: acute pain methocarbam 2022-2022- No [id number] 500mg Take 1 [facility] oL 500 mg 10-15 [id number] tablet by it y of tablet 00:00: 00:00 mouth 4 [place] 00 :00 (four) Medical times Branch daily. methocarbam 2022- No [id number] 500mg Take 1 [facility] oL 500 mg 10-15 [id number] tablet by it y of tablet 00:00: 00:00 mouth 4 [place] 00 :00 (four) Medical times Branch daily. ketorolac 2022- No 30mg 30 mg, Unive rs (TORADOL) 10-15 Slow IV ity of injection 00:00: 17:39 Push, Q6H, [place] 30 mg 00 :00 4 doses, Medical First dose Branch on 10/14/22 at 1800, Last dose on 10/15/22 at 1200, Routine bisacodyL Yes 10mg 10 mg, Univer s (DULCOLAX) 10-14 Oral, ity of tablet 10 23:19: QDAILYPRN, [...] No 5mg 5 mg, Univ ers rine 3-10 03-11 Oral, TID, ity of (FLEXERIL) 20:00: 15:11 First dose [place] tablet 5 mg 00 :54 on Mon Medica l 10/14/22 at Branch 1400, Until Discontinu ed, Routine HYDROcodone 2022- No 1{tbl} 1 tablet, Univers -acetaminop 10-14-10 Oral, ity of hen (NORCO 19:45: 19:32 ONCE, 1 Ben[place] as 5) 5-325 mg 00 :00 dose, On Medi benjie tablet 1 Mon Branch tablet 10/14/22 at 1345, TALIA NaCl 0.9% 2022- No 1000mL at 999 Uni vers (NS) bolus 10-14-10 mL/hr, ity of infusion 19:00: 19:00 1,000 mL, Ben[place] as 1,000 mL 00 :00 IV Medical Infusion, [place] ONCE, 1 dose, On Mon10/14/22 at 1300, TALIA methylPREDN 0 Yes [id number] 84mg Take 21 Univers ISolone 3-10 tablets by ity of (MEDROL, 00:00: mouth [place] UNA,) 4 mg 00 SEE-INSTRU Med ical tablets CTIONS. Branch follow package directions methylPREDN 2022-0 Yes [id number] 84mg Take 21 Univers ISolone 3-10 tablets by ity of (MEDROL, 00:00: mouth [place] UNA,) 4 mg 00 SEE-INSTRU Med ical tablets CTIONS. [place] follow package directions diclofenac 2022-2022- No [id number] 75mg Take 1 Univers 75 mg EC 3-10 04-10 tablet by ity o f tablet 00:00: 04:59 mouth in [place] 00 :00 the Branch and 1 tablet in the evening. Take with meals. Do all this for 30 days. diclofenac 2022-0 2022- No [id number] 75mg Take 1 Univers 75 mg EC 3-10 04-10 tablet by ity o f tablet 00:00: 04:59 mouth in [place] 00 :00 the Branch and 1 tablet in the evening. Take with meals. Do all this for 30 days. diclofenac 2022-0 2022- No [id number] 75mg Take 1 Univers 75 mg EC 3-10 04-10 tablet by ity o f tablet 00:00: 04:59 mouth in [place] 00 :00 the [facility] and 1 tablet in the evening. Take with meals. Do all this for 30 days. diclofenac 2022-2022- No [id number] 75mg Take 1 Univers 75 mg EC 3-10 04-10 tablet by ity o f tablet 00:00: 04:59 mouth in [place] 00 :00 the [facility] and 1 tablet in the evening. Take with meals. Do all this for 30 days. diclofenac 2022-0 2022- No [id number] 75mg Take 1 Univers 75 mg EC 3-10 04-10 tablet by ity o f tablet 00:00: 04:59 mouth in [place] 00 :00 the [facility] and 1 tablet in the evening. Take with meals. Do all this for 30 days. diclofenac 2022-2022- No [id number] 75mg Take 1 Univers 75 mg EC 3-10 03-30 tablet by ity o f tablet 00:00: 00:00 mouth in [place] 00 :00 the [facility] and 1 tablet in the evening. Take with meals. Do all this for 30 days. diclofenac 2022-2022- No [id number] 75mg Take 1 Univers 75 mg EC 3-10 03-30 tablet by ity o f tablet 00:00: 00:00 mouth in [place] 00 :00 the [facility] and 1 tablet in the evening. Take with meals. Do all this for 30 days. methylPREDN 2022- No [id number] 84mg Take 21 Univers ISolone 3-10 03-11 tablets by ity o f (MEDROL, 00:00: 00:00 mouth [place] UNA,) 4 mg 00 :00 SEE-INSTRU Med ical [facility] Branch follow package directions pregabalin 2022-0 Yes [id number] 150mg Take 1 Univers (LYRICA) 3-09 capsule by ity o f 150 mg 00:00: mouth in [place] capsule 00 the [facility] and 1 capsule at noon and 1 capsule in the evening. pregabalin 2022-0 Yes [id number] 150mg Take 1 Univers (LYRICA) 3-09 capsule by ity o f 150 mg 00:00: mouth in [place] capsule 00 [facility] and 1 capsule at noon and 1 capsule in the evening. pregabalin 2022-0 Yes [id number] 150mg Take 1 Univers (LYRICA) 3-09 capsule by ity o f 150 mg 00:00: mouth in [place] capsule 00 the Medical morning Branch and 1 capsule at noon and 1 capsule in the evening. pregabalin 3-0 Yes [id number] 150mg Take 1 Univers (LYRICA) 3-09 capsule by ity o f 150 mg 00:00: mouth in [place] capsule 00 the Medical morning Branch and 1 capsule at noon and 1 capsule in the evening. pregabalin 2022-0 Yes [id number] 150mg Take 1 Univers (LYRICA) 3-09 capsule by ity o f 150 mg 00:00: mouth in [place] capsule 00 the Medical morning Branch and 1 capsule at noon and 1 capsule in the evening. pregabalin 2022-0 Yes [id number] 150mg Take 1 Univers (LYRICA) 3-09 capsule by ity o f 150 mg 00:00: mouth in [place] capsule 00 the Medical morning Branch and 1 capsule at noon and 1 capsule in the evening. pregabalin 2022-0 3- No [id number] 150mg Take 1 Univers (LYRICA) 10-13-30 capsule by ity of 150 mg 00:00: 00:00 mouth in [place] capsule 00 :00 the Medical morning Branch and 1 capsule at noon and 1 capsule in the evening. pregabalin 2022-0 3- No [id number] 150mg Take 1 Univers (LYRICA) 3-04 09-30 capsule by ity of 150 mg 00:00: 00:00 mouth in [place] capsule 00 :00 the Medical morning Branch and 1 capsule at noon and 1 capsule in the evening. pregabalin 3-0 Yes [id number] 150mg Take 1 Univers (LYRICA) 3-08 capsule by ity o f 150 mg 00:00: mouth in [place] capsule 00 the Medical morning Branch and 1 capsule at noon and 1 capsule in the evening. pregabalin 3-0 Yes [id number] 150mg Take 1 Univers (LYRICA) 3-08 capsule by ity o f 150 mg 00:00: mouth in [place] capsule 00 the Medical morning Branch and 1 capsule at noon and 1 capsule in the evening. pregabalin 3-0 Yes [id number] 150mg Take 1 Univers (LYRICA) 3-08 capsule by ity o f 150 mg 00:00: mouth in [place] capsule 00 the Medical morning Branch and 1 capsule at noon and 1 capsule in the evening. pregabalin 3- No [id number] 150mg Take 1 Univers (LYRICA) 10-12 capsule by ity of 150 mg 00:00: 00:00 mouth in [place] capsule 00 :00 the Medical morning Branch and 1 capsule at noon and 1 capsule in the evening. gadoteridol 3- No [id number] .2mL/kg 20.24 mL Univers (PROHANCE-2 10-07 (0.2 mL/kg i ty of 0 mL) 18:00: 17:56 ?101.2 [place] injection 00 :00 kg), Medical 20.24 mL Intravenou Branc h s, ONCE, 1 dose, On Mon10/07/22 at 1200, Routine cyclobenzap 2022-0 Yes Univer s rine 10 mg 2-22 ity of tablet 00:00: [place] [address] Medical Branch cyclobenzap 3-0 Yes Univer s rine 10 mg 2-22 ity of tablet 00:00: [place] [address] Medical Branch cyclobenzap 3-0 Yes Univer s rine 10 mg 2-22 ity of tablet 00:00: [place] [address] Medical Branch cyclobenzap 2023-0 Yes Univer s rine 10 mg 2-22 ity of tablet 00:00: [place] [address] Medical Branch cyclobenzap 3-0 Yes Univer s rine 10 mg 2-22 ity of tablet 00:00: [place] [address] Medical Branch cyclobenzap 2023-0 Yes Univer s rine 10 mg 2-22 ity of tablet 00:00: [place] Medical Branch cyclobenzap 2023-0 Yes Univer s rine 10 mg 2-22 ity of tablet 00:00: [place] [address] Medical Branch cyclobenzap 2023-0 Yes Univer s rine 10 mg 2-22 ity of tablet 00:00: [place] [address] Medical Branch cyclobenzap 2023-0 Yes Univer s rine 10 mg 2-22 ity of tablet 00:00: [place] [address] Medical Branch cyclobenzap 2023-0 Yes Univer s rine 10 mg 2-22 ity of tablet 00:00: [place] [address] Medical Branch cyclobenzap 2023-0 Yes Univer s rine 10 mg 2-22 ity of tablet 00:00: [address] cyclobenzap 2023-0 Yes Univer s rine 10 mg 2-22 ity of tablet 00:00: [address] tiZANidine 2023-0 Yes 4mg Take 1 Unive rs 4 mg tablet 2-16 tablet by ity of 00:00: mouth in [place] [address] the [facility] morning [place] and 1 tablet at noon and 1 tablet in the evening. tiZANidine 2023-0 Yes 4mg Take 1 Unive rs 4 mg tablet 2-16 tablet by ity of 00:00: mouth in [place] [address] the [facility] morning [place] and 1 tablet at noon and 1 tablet in the evening. tiZANidine 2023-0 Yes 4mg Take 1 Unive rs 4 mg tablet 2-16 tablet by ity of 00:00: mouth in [place] [address] the [facility] and 1 tablet at noon and 1 tablet in the evening. tiZANidine 2023-0 Yes 4mg Take 1 Unive rs 4 mg tablet 2-16 tablet by ity of 00:00: mouth in [place] [address] the [facility] and 1 tablet at noon and 1 tablet in the evening. tiZANidine 2023-0 Yes 4mg Take 1 Unive rs 4 mg tablet 2-16 tablet by ity of 00:00: mouth in [address] and 1 tablet at noon and 1 tablet in the evening. tiZANidine 2023-0 Yes 4mg Take 1 Unive rs 4 mg tablet 2-16 tablet by ity of 00:00: mouth in [place] [address] the [facility] and 1 tablet at noon and 1 tablet in the evening. tiZANidine 2023-0 Yes 4mg Take 1 Unive rs 4 mg tablet 2-16 tablet by ity of 00:00: mouth in [address] and 1 tablet at noon and 1 tablet in the evening. tiZANidine 2023-0 2023- No 4mg Take 1 Univ ers 4 mg tablet 2-16 03-11 tablet by it y of 00:00: 00:00 mouth in [place] 00 :00 the [facility] and 1 tablet at noon and 1 tablet in the evening. tiotropium 2023-0 Yes 1 cap(s) Uni vers (SPIRIVA 2-15 ity of WITH 14:26: [place] HANDIHALER) 22 Medical 18 mcg Branch inhalation omeprazole 2022-0 Yes 1{capsu Take 1 Un claudia 40 mg 2-15 le} capsule by ity of capsule 14:26: mouth in [place] [address] the Medical morning. Branch tiotropium 2022-0 Yes 1 cap(s) Uni vers (SPIRIVA 2-15 ity of WITH 14:26: [place] HANDIHALER) 22 Medical 18 mcg Branch inhalation omeprazole 2022-0 Yes 1{capsu Take 1 Un claudia 40 mg 2-15 le} capsule by ity of capsule 14:26: mouth in [place] [address] the Medical morning. Branch tiotropium 2022-0 Yes 1 cap(s) Uni vers (SPIRIVA 2-15 ity of WITH 14:26: [place] HANDIHALER) 22 Medical 18 mcg Branch inhalation omeprazole 2022-0 Yes 1{capsu Take 1 Un claudia 40 mg 2-15 le} capsule by ity of capsule 14:26: mouth in [place] [address] the Medical morning. Branch tiotropium 2022-0 Yes 1 cap(s) Uni vers (SPIRIVA 2-15 ity of WITH 14:26: [place] HANDIHALER) 22 Medical 18 mcg Branch inhalation omeprazole 2022-0 Yes 1{capsu Take 1 Un claudia 40 mg 2-15 le} capsule by ity of capsule 14:26: mouth in [place] [address] the Medical morning. Branch tiotropium 2022-0 Yes 1 cap(s) Uni vers (SPIRIVA 2-15 ity of WITH 14:26: [place] HANDIHALER) 22 Medical 18 mcg Branch inhalation omeprazole 2022-0 Yes 1{capsu Take 1 Un claudia 40 mg 2-15 le} capsule by ity of capsule 14:26: mouth in [place] [address] the Medical morning. Branch tiotropium 2022-0 Yes 1 cap(s) Uni vers (SPIRIVA 2-15 ity of WITH 14:26: [place] HANDIHALER) 22 Medical 18 mcg Branch inhalation omeprazole 2022-0 Yes 1{capsu Take 1 Un cl[place]ia 40 mg 2-15 le} capsule by ity of capsule 14:26: mouth in [place] [address] the Medical morning. Branch tiotropium 2022-0 Yes 1 cap(s) Uni vers (SPIRIVA 2-15 ity of WITH 14:26: [place] HANDIHALER) 22 Medical 18 mcg Branch inhalation omeprazole 2022-0 Yes 1{capsu Take 1 Un cl[place] 40 mg 2-15 le} capsule by ity of capsule 14:26: mouth in [place] [address] the Medical morning. Branch tiotropium 2022-0 Yes 1 cap(s) Uni vers (SPIRIVA 2-15 ity of WITH 14:26: [place] HANDIHALER) 22 Medical 18 mcg Branch inhalation omeprazole 2022-0 Yes 1{capsu Take 1 Un claudia 40 mg 2-15 le} capsule by ity of capsule 14:26: mouth in [place] [address] the Medical morning. Branch tiotropium 2022-0 Yes 1 cap(s) Uni vers (SPIRIVA 2-15 ity of WITH 14:26: [place] HANDIHALER) 22 Medical 18 mcg Branch inhalation omeprazole 2022-0 Yes 1{capsu Take 1 Un claudia 40 mg 2-15 le} capsule by ity of capsule 14:26: mouth in [place] [address] the Medical morning. Branch tiZANidine 2022-0 Yes [id number] 4mg Take 1 Univers 4 mg 2-15 capsule by ity of capsule 00:00: mouth 3 [place] [address] (three) Medical times Branch daily as needed for Muscle Spasms. meloxicam 3-0 Yes [id number] 7.5mg Take 1 [facility] 7.5 mg 2-15 tablet by ity of tablet 00:00: mouth in [place] [address] the Medical morning. Branch tiZANidine 3-0 Yes [id number] 4mg Take 1 [facility] 4 mg 2-15 capsule by ity of capsule 00:00: mouth 3 [place] [address] (three) Medical times Branch daily as needed for Muscle Spasms. meloxicam 3-0 Yes [id number] 7.5mg Take 1 [facility] 7.5 mg 2-15 tablet by ity of tablet 00:00: mouth in [place] 00 the Medical morning. Branch tiZANidine 3-0 Yes [id number] 4mg Take 1 [facility] 4 mg 2-15 capsule by ity of capsule 00:00: mouth 3 [place] [address] (three) Medical times Branch daily as needed for Muscle Spasms. meloxicam 2023-0 Yes [id number] 7.5mg Take 1 [facility] 7.5 mg 2-15 tablet by ity of tablet 00:00: mouth in [place] 00 the Medical morning. Branch tiZANidine 3-0 Yes [id number] 4mg Take 1 [facility] 4 mg 2-15 capsule by ity of capsule 00:00: mouth 3 [place] (three) Medical times Branch daily as needed for Muscle Spasms. meloxicam 3-0 Yes [id number] 7.5mg Take 1 [facility] 7.5 mg 2-15 tablet by ity of tablet 00:00: mouth in [place] the Medical morning. Branch tiZANidine 2022-0 Yes [id number] 4mg Take 1 [facility] 4 mg 2-15 capsule by ity of capsule 00:00: mouth 3 [place] (three) Medical times Branch daily as needed for Muscle Spasms. meloxicam 3-0 Yes [id number] 7.5mg Take 1 [facility] 7.5 mg 2-15 tablet by ity of tablet 00:00: mouth in [place] the Medical morning. Branch tiZANidine 2022-0 Yes [id number] 4mg Take 1 [facility] 4 mg 2-15 capsule by ity of capsule 00:00: mouth [place] (three) Medical times Branch daily as needed for Muscle Spasms. meloxicam 3-0 Yes [id number] 7.5mg Take 1 [facility] 7.5 mg 2-15 tablet by ity of tablet 00:00: mouth in [place] the Medical morning. Branch tiZANidine 2022-0 Yes [id number] 4mg Take 1 [facility] 4 mg 2-15 capsule by ity of capsule 00:00: mouth 3 [place] (three) Medical times Branch daily as needed for Muscle Spasms. meloxicam 3-0 Yes [id number] 7.5mg Take 1 [facility] 7.5 mg 2-15 tablet by ity of tablet 00:00: mouth in [place] the Medical morning. Branch tiZANidine 3-0 Yes [id number] 4mg Take 1 [facility] 4 mg 2-15 capsule by ity of capsule 00:00: mouth 3 [place] (three) Medical times Branch daily as needed for Muscle Spasms. tiZANidine 3-0 Yes [id number] 4mg Take 1 [facility] 4 mg 2-15 capsule by ity of capsule 00:00: mouth 3 [place] (three) Medical times Branch daily as needed for Muscle Spasms. tiZANidine 3-0 2023- No [id number] 4mg Take 1 [facility] 4 mg 2-15 03-11 capsule by ity of capsule 00:00: 00:00 mouth 3 [place] 00 :00 (three) Medical times Branch daily as needed for Muscle Spasms. meloxicam 2022-2022- No [id number] 7.5mg Take 1 [facility] 7.5 mg 2-15 03-10 tablet by ity of tablet 00:00: 00:00 mouth in [place] 00 :00 the Medical morning. Branch meloxicam 2022- No [id number] 7.5mg Take 1 [facility] 7.5 mg 2-15 03-10 tablet by ity of tablet 00:00: 00:00 mouth in [place] 00 :00 the Medical morning. Branch pregabalin 2022-0 Yes [id number] 150mg Take 1 Univers (LYRICA) 1-30 capsule by ity o f 150 mg 00:00: mouth in [place] capsule 00 the Medical morning Branch and 1 capsule in the evening. pregabalin 2022-0 Yes [id number] 150mg Take 1 [facility] (LYRICA) 1-30 capsule by ity o f 150 mg 00:00: mouth in [place] capsule 00 the Medical morning Branch and 1 capsule in the evening. pregabalin 2022-0 Yes [id number] 150mg Take 1 Univers (LYRICA) 1-30 capsule by ity o f 150 mg 00:00: mouth in [place] capsule 00 the Medical morning Branch and 1 capsule in the evening. pregabalin 2022-0 Yes [id number] 150mg Take 1 Univers (LYRICA) 1-30 capsule by ity o f 150 mg 00:00: mouth in [place] capsule 00 the Medical morning Branch and 1 capsule in the evening. pregabalin 2022-0 Yes [id number] 150mg Take 1 [facility] (LYRICA) 1-30 capsule by ity o f 150 mg 00:00: mouth in [place] capsule 00 the Medical morning Branch and 1 capsule in the evening. pregabalin 2022-0 2022- No [id number] 150mg Take 1 [facility] (LYRICA) 1-30 03-08 capsule by ity of 150 mg 00:00: 00:00 mouth in [place] capsule 00 :00 the Medical morning Branch and 1 capsule in the evening. pregabalin 2022-0 2022- No [id number] 150mg Take 1 Univers (LYRICA) 1-30 03-08 capsule by ity of 150 mg 00:00: 00:00 mouth in [place] capsule 00 :00 the Medical morning Branch and 1 capsule in the evening. tiotropium 3-0 Yes 1 cap(s) Uni vers (SPIRIVA 1-27 ity of WITH 13:03: [place] HANDIHALER) 41 Medical 18 mcg Branch inhalation omeprazole 3-0 Yes 1{capsu Take 1 Un claudia 40 mg 1-27 le} capsule by ity of capsule 13:03: mouth in [place] [address] the Medical morning. Branch tiotropium 3-0 Yes 1 cap(s) Uni vers (SPIRIVA 1-27 ity of WITH 13:03: [place] HANDIHALER) 41 Medical 18 mcg Branch inhalation omeprazole 3-0 Yes 1{capsu Take 1 Un [place] 40 mg 1-27 le} capsule by ity of capsule 13:03: mouth in [place] [address] the Medical morning. Branch tiotropium 2023-0 Yes 1 cap(s) Uni vers (SPIRIVA 1-27 ity of WITH 13:03: [place] HANDIHALER) 41 Medical 18 mcg Branch inhalation omeprazole 3-0 Yes 1{capsu Take 1 Un [place] 40 mg 1-27 le} capsule by ity of capsule 13:03: mouth in [place] [address] the Medical morning. Branch tiotropium 3-0 Yes 1 cap(s) Uni vers (SPIRIVA 1-27 ity of WITH 13:03: [place] HANDIHALER) 41 Medical 18 mcg Branch inhalation omeprazole 3-0 Yes 1{capsu Take 1 Un [place] 40 mg 1-27 le} capsule by ity of capsule 13:03: mouth in [place] [address] the Medical morning. Branch pregabalin 2023-0 Yes [id number] 75mg Take 1 Univers (LYRICA) 75 1-20 capsule by it y of mg capsule 00:00: mouth in [place] 00 the Medical morning Branch and 1 capsule at noon and 1 capsule in the evening. pregabalin 2023-0 Yes [id number] 75mg Take 1 [facility] (LYRICA) 75 1-20 capsule by it y of mg capsule 00:00: mouth in [place] 00 the Medical morning Branch and 1 capsule at noon and 1 capsule in the evening. pregabalin 2023-0 Yes [id number] 75mg Take 1 Univers (LYRICA) 75 1-20 capsule by it y of mg capsule 00:00: mouth in [place] 00 the Medical morning Branch and 1 capsule at noon and 1 capsule in the evening. pregabalin 0 Yes [id number] 75mg Take 1 [facility] (LYRICA) 75 1-20 capsule by it y of mg capsule 00:00: mouth in [place] 00 the Medical morning Branch and 1 capsule at noon and 1 capsule in the evening. pregabalin 0 Yes [id number] 75mg Take 1 [facility] (LYRICA) 75 1-20 capsule by it y of mg capsule 00:00: mouth in [place] 00 the Medical morning Branch and 1 capsule at noon and 1 capsule in the evening. pregabalin 0 Yes [id number] 75mg Take 1 [facility] (LYRICA) 75 1-20 capsule by it y of mg capsule 00:00: mouth in [place] 00 the Medical morning Branch and 1 capsule at noon and 1 capsule in the evening. pregabalin 2022- No [id number] 75mg Take 1 [facility] (LYRICA) 75 1-20 01-30 capsule by i ty of mg capsule 00:00: 00:00 mouth in [place] 00 :00 the Medical morning Branch and 1 capsule at noon and 1 capsule in the evening. pregabalin 2022- No [id number] 75mg Take 1 [facility] (LYRICA) 75 1-20 01-30 capsule by i ty of mg capsule 00:00: 00:00 mouth in [place] 00 :00 the Medical morning Branch and 1 capsule at noon and 1 capsule in the evening. HYDROcodone 2022- No [id number] 1{tbl} Take 1 U nivers -acetaminop 1-02 01-10 tablet by it y of hen (NORCO) 00:00: 05:59 [place] 10-[place] mg 00 :00 every 4 Medical tablet (four) Branch hours as needed for Pain (scale 7-10) for up to 7 days. Indication s: acute pain methylPREDN 2021-08- No Take by Un [place] ISolone 2-27 01-03 mouth ity of (MEDROL, 00:00: 05:59 SEE-INSTRU [...] Branch follow package directions tiZANidine 2021-08 Yes [id number] 4mg Take 1 [facility] 4 mg 2-19 capsule by ity of capsule 00:00: mouth 3 00 (three) Medical times Branch daily as needed for Muscle Spasms. tiZANidine 2021-08 Yes [id number] 4mg Take 1 [facility] 4 mg 2-19 capsule by ity of capsule 00:00: mouth 3 00 (three) Medical times Branch daily as needed for Muscle Spasms. tiZANidine 2021-08 Yes [id number] 4mg Take 1 [facility] 4 mg 2-19 capsule by ity of capsule 00:00: mouth 3 00 (three) Medical times Branch daily as needed for Muscle Spasms. tiZANidine 2021-08 Yes [id number] 4mg Take 1 [facility] 4 mg 2-19 capsule by ity of capsule 00:00: mouth 3 [place] 00 (three) Medical times Branch daily as needed for Muscle Spasms. tiZANidine 2021-08 Yes [id number] 4mg Take 1 [facility] 4 mg 2-19 capsule by ity of capsule 00:00: mouth 3 [place] 00 (three) Medical times Branch daily as needed for Muscle Spasms. tiZANidine 2021-08 Yes [id number] 4mg Take 1 [facility] 4 mg 2-19 capsule by ity of capsule 00:00: mouth 3 [place] 00 (three) Medical times Branch daily as needed for Muscle Spasms. tiZANidine 2021-08 Yes [id number] 4mg Take 1 [facility] 4 mg 2-19 capsule by ity of capsule 00:00: mouth 3 (three) Medical times Branch daily as needed for Muscle Spasms. tiZANidine 2021-08 Yes [id number] 4mg Take 1 [facility] 4 mg 2-19 capsule by ity of capsule 00:00: mouth (three) Medical times Branch daily as needed for Muscle Spasms. tiZANidine 2021-08 Yes [id number] 4mg Take 1 [facility] 4 mg 2-19 capsule by ity of capsule 00:00: mouth (three) Medical times Branch daily as needed for Muscle Spasms. tiZANidine 2021-08 Yes [id number] 4mg Take 1 [facility] 4 mg 2-19 capsule by ity of capsule 00:00: mouth (three) Medical times Branch daily as needed for Muscle Spasms. tiZANidine 2021-08 Yes [id number] 4mg Take 1 [facility] 4 mg 2-19 capsule by ity of capsule 00:00: mouth (three) Medical times Branch daily as needed for Muscle Spasms. tiZANidine 2021-08 Yes [id number] 4mg Take 1 [facility] 4 mg 2-19 capsule by ity of capsule 00:00: mouth (three) Medical times Branch daily as needed for Muscle Spasms. tiZANidine 2021-08 Yes [id number] 4mg Take 1 [facility] 4 mg 2-19 capsule by ity of capsule 00:00: mouth (three) Medical times Branch daily as needed for Muscle Spasms. tiZANidine 2021-08 Yes [id number] 4mg Take 1 [facility] 4 mg 2-19 capsule by ity of capsule 00:00: mouth (three) Medical times Branch daily as needed for Muscle Spasms. tiZANidine 2021-08 Yes [id number] 4mg Take 1 [facility] 4 mg 2-19 capsule by ity of capsule 00:00: mouth 3 (three) Medical times Branch daily as needed for Muscle Spasms. tiZANidine 2021-08 Yes [id number] 4mg Take 1 [facility] 4 mg 2-19 capsule by ity of capsule 00:00: mouth 3 [place] 00 (three) Medical times Branch daily as needed for Muscle Spasms. tiZANidine 2021-08 Yes [id number] 4mg Take 1 [facility] 4 mg 2-19 capsule by ity of capsule 00:00: mouth 3 [place] 00 (three) Medical times Branch daily as needed for Muscle Spasms. tiZANidine 2021-08- No [id number] 4mg Take 1 [facility] 4 mg 2-19 02-15 capsule by ity of capsule 00:00: 00:00 mouth 3 [place] 00 :00 (three) Medical times Branch daily as needed for Muscle Spasms. tiZANidine 2021-08- No [id number] 4mg Take 1 [facility] 4 mg 2-19 [...] 7-10). Indication s: acute pain HYDROcodone 2021-08 No 4647 1{tbl} Take 1 U nivers -acetaminop 2-16 04-13 tablet by it y of hen (NORCO) 00:00: 00:00 mouth [place] 10-[place] mg 00 :00 every 6 Medical tablet (six) Branch hours as needed for Pain (scale 7-10). Indication s: acute pain HYDROcodone 2021-08 No [...] 12-20 tablet by it y of hen ([place]zi[place]) 00:00: 05:59 mouth [place] 10-325 mg 00 :00 every 6 Medical tablet (six) Branch hours as needed for Pain (scale 7-10) for up to 7 days. Indication s: acute pain HYDROcodone 2021-08- No 4647 1{tbl} Take 1 U nivers -acetaminop 2-12 12-20 tablet by it y of hen ([place]) 00:00: 05:59 mouth [place] 10-325 mg 00 :00 every 6 Medical tablet (six) Branch hours as needed for Pain (scale 7-10) for up to 7 days. Indication s: acute pain HYDROcodone 2021-08- No 4647 1{tbl} Take 1 U nivers -acetaminop 2-12 12-16 tablet by it y of hen ([place]) 00:00: 00:00 mouth [place] 10-325 mg [...] 40 mg 00 First dose Medical on Mon07/12/22 at 0900, Until Discontinu ed, Routine docusate 2021-08 Yes 100mg 100 mg, Unive rs (COLACE) 2-06 Oral, ity of capsule 100 15:00: DAILY, [place] mg 00 First dose Medical on Mon07/12/22 at 0900, Until Discontinu ed, Routine enoxaparin 2021-08 Yes 40mg 40 mg, Unive rs (LOVENOX) 2-06 Subcutaneo ity of injection 15:00: us, Q24H, [place] 40 mg 00 First dose Medical on Mon07/12/22 at 0900, Until Discontinu ed, Routine docusate 2021-08 Yes 100mg 100 mg, Unive rs (COLACE) 2-06 Oral, ity of capsule 100 15:00: DAILY, [place] mg 00 First dose Medical on Mon07/12/22 at 0900, Until Discontinu ed, Routine budesonide- [...] 00 First dose Med ical mcg on Mon07/11/22 at 2130, Until Discontinu ed, Routine levothyroxi 2021-08 Yes 137ug 137 mcg, U nivers ne 2-06 Oral, ity of (SYNTHROID) 03:30: Q24H, [place] tablet 137 00 First dose Med ical mcg on Mon5/22 at 2130, Until Discontinu ed, Routine pantoprazol 2021-08 Yes 40mg 40 mg, Univ ers e 2-06 Oral, QHS, ity of (PROTONIX) 03:00: First dose [place] tablet 00 on [facility] 40 mg 07/11/22 at Branch 2100, Until Discontinu ed, Routine pantoprazol 2021-08 Yes 40mg 40 mg, Univ ers e 2-06 Oral, QHS, ity of (PROTONIX) 03:00: First dose [place] EC tablet 00 on [facility] 40 mg 07/11/22 at Branch 2100, Until Discontinu ed, Routine FLUoxetine 2021-08 Yes 10mg 10 mg, Unive rs (PROZAC) 2-06 Oral, ity of capsule 10 02:30: DAILY, [place] mg 00 First dose Medical (after [place] last modificati on) on [facility] 07/11/22 at 2030, Until Discontinu ed FLUoxetine 2021-08 Yes 10mg 10 mg, Unive rs (PROZAC) 2-06 Oral, ity of capsule 10 02:30: DAILY, [place] mg 00 First dose Medical (after [place] last modificati on) on [facility] 07/11/22 at 2030, Until Discontinu ed pregabalin 2021-08 Yes 150mg 150 mg, Uni vers (LYRICA) 2-06 Oral, TID, ity o f capsule 150 02:00: First dose [place] mg 00 on [facility] 07/11/22 at Branch 2000, Until Discontinu ed, Routine pregabalin 2021-08 Yes 150mg 150 mg, Uni vers (LYRICA) 2-06 Oral, TID, ity o f capsule 150 02:00: First dose [place] mg 00 on [facility] 07/11/22 at Branch 2000, Until Discontinu ed, Routine tiZANidine 2021-08- No [id number] 4mg Take 1 Univers 4 mg tablet 09-12 tablet by it y of 00:00: 05:59 mouth in [place] 00 :00 the Medical morning Branch and 1 tablet at noon and 1 tablet in the evening. Do all this for 21 days. tiZANidine 2021-08- No [id number] 4mg Take 1 [facility] 4 mg tablet 09-12 tablet by it y of 00:00: 05:59 mouth in [place] 00 :00 the Medical morning Branch and 1 tablet at noon and 1 tablet in the evening. Do all this for 21 days. tiZANidine 2021-08- No [id number] 4mg Take 1 [facility] 4 mg tablet 09-12 tablet by it y of 00:00: 05:59 mouth in [place] 00 :00 the Medical morning Branch and 1 tablet at noon and 1 tablet in the evening. Do all this for 21 days. tiZANidine 2021-08- No [id number] 4mg Take 1 [facility] 4 mg tablet 09-12 tablet by it y of 00:00: 05:59 mouth in [place] 00 :00 the Medical morning Branch and 1 tablet at noon and 1 tablet in the evening. Do all this for 21 days. tiZANidine 2021-08- No [id number] 4mg Take 1 [facility] 4 mg tablet 09-12 tablet by it y of 00:00: 05:59 mouth in [place] 00 :00 the Medical morning Branch and 1 tablet at noon and 1 tablet in the evening. Do all this for 21 days. tiZANidine 2021-08- No [id number] 4mg Take 1 [facility] 4 mg tablet 09-12 tablet by it y of 00:00: 05:59 mouth in [place] 00 :00 the Medical morning Branch and 1 tablet at noon and 1 tablet in the evening. Do all this for 21 days. tiZANidine 2021-08- No [id number] 4mg Take 1 [facility] 4 mg tablet 09-12 tablet by it y of 00:00: 05:59 mouth in [place] 00 :00 the Medical morning Branch and 1 tablet at noon and 1 tablet in the evening. Do all this for 21 days. tiZANidine 2021-08- No [id number] 4mg Take 1 [facility] 4 mg tablet 09-12 tablet by it y of 00:00: 05:59 mouth in [place] 00 :00 the Medical morning Branch and 1 tablet at noon and 1 tablet in the evening. Do all this for 21 days. tiZANidine 2021-08- No [id number] 4mg Take 1 Univers 4 mg tablet 09-12 tablet by it y of 00:00: 05:59 mouth in [place] 00 :00 the Medical morning Branch and 1 tablet at noon and 1 tablet in the evening. Do all this for 21 days. sennosides 2021-08- No [id number] 8.6mg Take 1 Univers 8.6 mg 2-06 12-22 tablet by ity of tablet 00:00: 05:59 mouth in [place] 00 :00 the [facility] for 15 days. sennosides 2021-08- No [id number] 8.6mg Take 1 Univers 8.6 mg 2-06 12-22 tablet by ity of tablet 00:00: 05:59 mouth in [place] 00 :00 the [facility] for 15 days. sennosides 2021-08- No [id number] 8.6mg Take 1 Univers 8.6 mg 2-06 12-22 tablet by ity of tablet 00:00: 05:59 mouth in [place] 00 :00 the [facility] for 15 days. sennosides 2021-08- No [id number] 8.6mg Take 1 Univers 8.6 mg 2-06 12-22 tablet by ity of tablet 00:00: 05:59 mouth in [place] 00 :00 the [facility] for 15 days. sennosides 2021-08- No [id number] 8.6mg Take 1 Univers 8.6 mg 2-06 12-22 tablet by ity of tablet 00:00: 05:59 mouth in [place] 00 :00 the [facility] for 15 days. sennosides 2021-08- No [id number] 8.6mg Take 1 Univers 8.6 mg 2-06 12-22 tablet by ity of tablet 00:00: 05:59 mouth in [place] 00 :00 the [facility] for 15 days. sennosides 2021-08- No [id number] 8.6mg Take 1 Univers 8.6 mg 2-06 12-22 tablet by ity of tablet 00:00: 05:59 mouth in [place] 00 :00 the [facility] for 15 days. sennosides 2021-08- No [id number] 8.6mg Take 1 Univers 8.6 mg 2-06 12-22 tablet by ity of tablet 00:00: 05:59 mouth in [place] 00 :00 the [facility] for 15 days. sennosides 2021-08 No [id number] 8.6mg Take 1 Univers 8.6 mg -01 16-22 tablet by ity of tablet 00:00: 05:59 mouth in [place] 00 :00 the Medical morning Branch for 15 days. HYDROcodone 2021-08- No 4647 1{tbl} Take 1 U nivers -acetaminop 2- 12-14 tablet by it y of hen 5-325 00:00: 05:59 mouth [place] mg tablet 00 :00 every 4 Medical (four) Branch hours as needed for Pain (scale 7-10) for up to 7 days. Indication s: acute pain docusate 2021-08- No [id number] 100mg Take 1 Univers 100 mg 2- 12-14 capsule by ity of capsule 00:00: 05:59 mouth in [place] 00 :00 the Medical morning Branch and 1 capsule in the evening. Do all this for 7 days. docusate 2021-08 No [id number] 100mg Take 1 Univers 100 mg 2- 12-14 capsule by ity of capsule 00:00: 05:59 mouth in [place] 00 :00 the Medical morning Branch and 1 capsule in the evening. Do all this for 7 days. HYDROcodone 2021-08 No 4647 1{tbl} Take 1 U nivers -acetaminop 2- 12-14 tablet by it y of hen (NORCO) 00:00: 05:59 mouth [place] 10-325 mg 00 :00 every 4 Medical tablet (four) Branch hours as needed for Pain (scale 7-10) for up to 7 days. Indication s: acute pain docusate 2021-08- No [id number] 100mg Take 1 Univers 100 mg 2- 12-14 capsule by ity of capsule 00:00: 05:59 mouth in [place] 00 :00 the Medical morning Branch and 1 capsule in the evening. Do all this for 7 days. HYDROcodone 2021-08 No 4647 1{tbl} Take 1 U nivers -acetaminop 2-06 12-14 tablet by it y of hen (NORCO) 00:00: 05:59 mouth [place] 10-325 mg 00 :00 every 4 Medical tablet (four) Branch hours as needed for Pain (scale 7-10) for up to 7 days. Indication s: acute pain docusate 2021-08 No [id number] 100mg Take 1 Univers 100 mg 09-12 capsule by ity of capsule 00:00: 05:59 mouth in [place] 00 :00 the Medical morning Branch and 1 capsule in the evening. Do all this for 7 days. HYDROcodone 2021-08 No 4647 1{tbl} Take 1 U nivers -acetaminop 09-1212 tablet by it y of hen (NORCO) 00:00: 00:00 mouth [place] 10-325 mg 00 :00 every 4 Medical tablet (four) Branch hours as needed for Pain (scale 7-10) for up to 7 days. Indication s: acute pain HYDROcodone 2021-08 No 4647 1{tbl} Take 1 U nivers -acetaminop 09-12 tablet by it y of hen 5-325 00:00: 00:00 mouth [place] mg tablet 00 :00 every 4 Medical (four) Branch hours as needed for Pain (scale 7-10) for up to 7 days. Indication s: acute pain ceFAZolin 2021-08 2000mg 2 g (2,000 Univers in 0.9% 09-11 mg), IV ity of sodium 23:00: 22:59 [...] within 24 hours of surgery ceFAZolin 2021-08 2000mg 2 g (2,000 Univers in 0.9% 09-11 1207 mg), IV ity of sodium 23:00: 22:59 [...] mg 20:00: First dose on [facility] 07/11/22 at Branch 1400, Until Discontinu ed tiZANidine 2021-08 Yes 4mg 4 mg, Univer s (ZANAFLEX) 2-05 Oral, TID, ity of tablet 4 mg 20:00: First dose on [facility] 07/11/22 at Branch 1400, Until Discontinu ed [...] 58 Starting Medi [place] tablet 1 on [facility] tablet 07/11/22 at 1216, Until Discontinu ed, [...] 2-05 Oral, ity of (TYLENOL) 18:16: Q4HPRN, [place] tablet 650 58 Starting Medic al mg on Mon Branch 07/11/22 at 1216, Until Discontinu ed, Routine, Pain (scale 1-3) ketorolac 2021-08- No 30mg 30 mg, Unive rs (TORADOL) 09-11 Slow IV ity of injection 18:16: 18:15 [place], [place] 30 mg 58 :58 Q6HPRN, Medical Starting Branch on Mon07/11/22 at 1216, Until [place] 07/14/22 at 1215, Routine, Pain (scale 4-6) ketorolac 2021-08- No 30mg 30 mg, Unive rs (TORADOL) 09-11-08 Slow IV ity of injection 18:16: 18:15 [place], [place] 30 mg 58 :58 Q6HPRN, Medical Starting Branch on Mon07/11/22 at 1216, Until [place] 07/14/22 at 1215, Routine, Pain (scale 4-6) HYDROcodone 2021-08- No 1{tbl} 1 tablet, Univers -acetaminop 2-12 16-05 Oral, ity of hen (NORCO 18:00: 18:54 ONCE, 1 [place] 5) 5-325 mg 00 :00 dose, On Medi [place] tablet 1 Mon Branch tablet 07/11/22 at 1200, Routine, PACU HYDROcodone 2021-08 1{tbl} 1 tablet, Univers -acetaminop 2- 12-05 Oral, ity of hen (NORCO 18:00: 18:54 ONCE, 1 [place] 5) 5-325 mg 00 :00 dose, On Medi [place] tablet 1 Mon Branch tablet 07/11/22 at 1200, Routine, PACU FENTanyl PF 2021-08 No 25ug 25 mcg, Un claudia (SUBLIMAZE 09-11 Slow IV ity o f (PF)) 17:57: [...] No 25ug 25 mcg, Un claudia (SUBLIMAZE 09-11 Slow IV ity o f (PF)) 17:57: 21:00 [place], [place] injection 59 :00 Q5MIN PRN, Medi benj[place] 25 mcg 4 doses, Branch Starting on Mon07/11/22 at 1157, Until Discontinu ed, Routine, Pain (scale 4-6), PACU HYDROmorphO 2021-08- No .2mg 0.2 mg, Un claudia ne 09-11 Slow IV ity of (DILAUDID) 17:57: 22:01 [place], [place] injection 59 :42 Q5MIN PRN, Medi [place] 0.2 mg 10 doses, Branch Starting on Mon07/11/22 at 1157, Until Mon07/11/22 at 1601, Routine, Pain (scale 7-10), PACU
Us e approved by (Faculty): PACU USE -ANESTHESI A SERVICE-HY DROMORPHON E INJECTIONS gentamicin 2021-08- No PRN, Univer s 80 mg, 09-11 Starting ity of vancomycin 16:09: 18:20 on Mon [facility] s (VANCOCIN) 00 :28 07/11/22 at [facility] ical 1,000 mg in 1009, [place] NaCl 0.9% Intra-op (NS) 3,000 mL OR irrigation thrombin 2021-08- No PRN, Univers (THROMBINAR 09-11 Starting ity of ) spray 16:06: 18:20 on Mon [place] 00 :28 07/11/22 at Medical 1006, Branch Until Mon07/11/22 at 1220, Routine, Intra-op lidocaine-e 2021-08- No PRN, Unive rs pinephrine 09-11 Starting ity of (XYLOCAINE 15:27: 18:20 on Mon s WITH 00 :28 07/11/22 at [facility] EPINEPHRINE 0927, [place] ) 1 Until [facility] %-1:100,000 07/11/22 at injection 1220, Routine, Intra-op gadoteridol 2021-08- No [id number] .2mL/kg 19.68 mL Univers (PROHANCE-2 08-29 (0.2 mL/kg i ty of 0 mL) 22:30: 22:20 ?98.4 kg), [place] injection 00 :00 Intravenou Medi benjie 19.68 mL s, ONCE, 1 Branc h dose, On Mon06/29/22 at 1630, Routine methylPREDN 2021-08 Yes [id number] Take by Univers ISolone 1-21 mouth ity of (MEDROL, 00:00: SEE-INSTRU [place] UNA,) 4 mg 00 CTIONS. Medica l tablets follow Branch package directions methylPREDN 2021-08 Yes [id number] Take by Univers ISolone 1-21 mouth ity of (MEDROL, 00:00: SEE-INSTRU [place] UNA,) 4 mg 00 CTIONS. Medica l tablets follow Branch package directions methylPREDN 2021-08 Yes [id number] Take by Univers ISolone 1-21 mouth ity of (MEDROL, 00:00: SEE-INSTRU [place] UNA,) 4 mg 00 CTIONS. Medica l tablets follow Branch package directions methylPREDN 2021-08 Yes [id number] Take by Univers ISolone 1-21 mouth ity of (MEDROL, 00:00: SEE-INSTRU [place] UNA,) 4 mg 00 CTIONS. Medica l tablets follow Branch package directions methylPREDN 2021-08 Yes [id number] Take by Univers ISolone 1-21 mouth ity of (MEDROL, 00:00: SEE-INSTRU [place] UNA,) 4 mg 00 CTIONS. Medica l tablets follow Branch package directions methylPREDN 2021-08 Yes [id number] Take by Univers ISolone -21 mouth ity of (MEDROL, 00:00: SEE-INSTRU [place] UNA,) 4 mg 00 CTIONS. Medica l tablets follow Branch package directions methylPREDN 2021-08 Yes [id number] Take by [facility] ISolone 1-21 mouth ity of (MEDROL, 00:00: SEE-INSTRU [place] UNA,) 4 mg 00 CTIONS. Medica l tablets follow Branch package directions methylPREDN 2021-08 Yes [id number] Take by [facility] ISolone -21 mouth ity of (MEDROL, 00:00: SEE-INSTRU [place] UNA,) 4 mg 00 CTIONS. Medica l tablets follow Branch package directions methylPREDN 2021-08 Yes [id number] Take by [facility] ISolone 1-21 mouth ity of (MEDROL, 00:00: SEE-INSTRU [place] UNA,) 4 mg 00 CTIONS. Medica l tablets follow Branch package directions methylPREDN 2021-08 Yes [id number] Take by [facility] ISolone 1-21 mouth ity of (MEDROL, 00:00: SEE-INSTRU [place] UNA,) 4 mg 00 CTIONS. Medica l tablets follow Branch package directions methylPREDN 2021-08 Yes [id number] Take by [facility] ISolone 1-21 mouth ity of (MEDROL, 00:00: SEE-INSTRU [place] UNA,) 4 mg 00 CTIONS. Medica l tablets follow Branch package directions methylPREDN 2021-08 Yes [id number] Take by [facility] ISolone 08-27 mouth ity of (MEDROL, 00:00: SEE-INSTRU [place] UNA,) 4 mg 00 CTIONS. Medica l tablets follow Branch package directions methylPREDN 2021-08 Yes [id number] Take by [facility] ISolone 08-27 mouth ity of (MEDROL, 00:00: SEE-INSTRU [place] UNA,) 4 mg 00 CTIONS. Medica l tablets follow Branch package directions methylPREDN 2021-08 Yes [id number] Take by [facility] ISolone 21 mouth ity of (MEDROL, 00:00: SEE-INSTRU [place] UNA,) 4 mg 00 CTIONS. Medica l tablets follow Branch package directions methylPREDN 2021-08 Yes [id number] Take by [facility] ISolone 08-27 mouth ity of (MEDROL, 00:00: SEE-INSTRU [place] UNA,) 4 mg 00 CTIONS. Medica l tablets follow Branch package directions methylPREDN 2021-08 Yes [id number] Take by [facility] ISolone 08-27 mouth ity of (MEDROL, 00:00: SEE-INSTRU [place] UNA,) 4 mg 00 CTIONS. Medica l tablets follow Branch package directions cephALEXin 2021-08- No [id number] 500mg Take 1 Univers (KEFLEX) 08-27 capsule by ity of 500 mg 00:00: 05:59 mouth 4 [place] capsule 00 :00 (four) Medical times Branch daily for 10 days. cephALEXin 2021-08- No [id number] 500mg Take 1 [facility] (KEFLEX) 08-27 capsule by ity of 500 mg 00:00: 05:59 mouth 4 [place] capsule 00 :00 (four) Medical times Branch daily for 10 days. cephALEXin 2021-08- No [id number] 500mg Take 1 Univers (KEFLEX) 08-27 capsule by ity of 500 mg 00:00: 05:59 mouth 4 [place] capsule 00 :00 (four) Medical times Branch daily for 10 days. cephALEXin 2021-08- No [id number] 500mg Take 1 Univers (KEFLEX) 08-27 capsule by ity of 500 mg 00:00: 05:59 mouth 4 [place] capsule 00 :00 (four) Medical times Branch daily for 10 days. cephALEXin 2021-08- No [id number] 500mg Take 1 Univers (KEFLEX) 08-27 capsule by ity of 500 mg 00:00: 05:59 mouth 4 [place] capsule 00 :00 (four) Medical times Branch daily for 10 days. cephALEXin 2021-08- No [id number] 500mg Take 1 Univers (KEFLEX) 08-27 capsule by ity of 500 mg 00:00: 05:59 mouth 4 [place] capsule 00 :00 (four) Medical times Branch daily for 10 days. cephALEXin 2021-08- No [id number] 500mg Take 1 [facility] (KEFLEX) 08-27 capsule by ity of 500 mg 00:00: 05:59 mouth 4 [place] capsule 00 :00 (four) Medical times Branch daily for 10 days. cephALEXin 2021-08- No [id number] 500mg Take 1 [facility] (KEFLEX) 08-27 capsule by ity of 500 mg 00:00: 05:59 mouth 4 [place] capsule 00 :00 (four) Medical times Branch daily for 10 days. HYDROcodone 2021-08 No [id number] 1{tbl} Take 1 U nivers -acetaminop 1-21 11-29 tablet by it y of hen (NORCO) 00:00: 05:59 mouth [place] 5-325 mg 00 :00 every 4 Medical tablet (four) Branch hours as needed for Pain (scale 7-10) for up to 7 days. Indication s: acute pain HYDROcodone 2021-08 No [id number] 1{tbl} Take 1 U nivers -acetaminop 1-21 11-29 tablet by it y of hen (NORCO) 00:00: 05:59 mouth [place] 5-325 mg 00 :00 every 4 Medical tablet (four) Branch hours as needed for Pain (scale 7-10) for up to 7 days. Indication s: acute pain HYDROcodone 2021-08 No [id number] 1{tbl} Take 1 U nivers -acetaminop 1-21 11-29 tablet by it y of hen ([place]) 00:00: 05:59 mouth [place] 5-325 mg 00 :00 every 4 Medical tablet (four) Branch hours as needed for Pain (scale 7-10) for up to 7 days. Indication s: acute pain HYDROcodone 2021-08- No [id number] 1{tbl} Take 1 U nivers -acetaminop 08-27 tablet by it y of hen ([place]) 00:00: 05:59 mouth [place] 5-325 mg 00 :00 every 4 Medical tablet (four) Branch hours as needed for Pain (scale 7-10) for up to 7 days. Indication s: acute pain methylPREDN 2021-08- No [id number] Take by [facility] ISolone 08-27 mouth ity of (MEDROL, 00:00: 00:00 SEE-INSTRU [place] UNA,) 4 mg 00 :00 CTIONS. Medica l tablets follow Branch package directions methylPREDN 2021-08- No [id number] Take by [facility] ISolone 08-27 mouth ity [...] 00 First dose Med ical mcg on Mon Branch 06/06/22 at 0600, Until Discontinu ed, Routine omeprazole 2021-08 No 40mg Take 40 mg Univers 40 mg 0-31 10-31 by mouth ity of capsule 10:47: 00:00 at [place] 39 :00 bedtime. Medical Branch omeprazole 2021-08 No 40mg Take 40 mg Univers 40 mg 0-31 10-31 by mouth ity of capsule 10:47: 00:00 at [place] 39 :00 bedtime. Medical Branch pantoprazol 2021-08 Yes 40mg 40 mg, Univ ers e 0-31 Oral, QHS, ity of (PROTONIX) 02:00: [place] dose [place] [facility] tablet [facility] mg 06/05/22 Branch at 2100, Until Discontinu ed, Routine amitriptyli 2021-08 Yes 25mg 25 mg, Univ ers ne (ELAVIL) 0-31 Oral, QHS, it y of tablet 25 02:00: [place] mg 00 [facility] 06/05/22 Branch at 2100, Until Discontinu ed, Routine docusate 2021-08 Yes 100mg 100 mg, Unive rs (COLACE) 0-31 Oral, BID, ity o f capsule 100 01:00: First dose [place] mg 00 on [facility] 06/05/22 Branch at 2000, Until Discontinu ed, Routine budesonide- 2021-08 Yes 2{puff} 2 Puff, Univers formoteroL 0-31 Inhalation ity of (SYMBICORT) 01:00: , BID, [place] 160-4.5 00 First dose Medica l mcg/actuati on [facility] on inhaler 06/05/22 2 Puff at 2000, Until Discontinu ed, Routine Fluticasone 2021-08 Yes 1{puff} 1 Puff, Univers -Salmeterol 0-31 Inhalation it y of (ADVAIR) 01:00: , Q12H, [place] 500-50 00 First dose Medical mcg/dose on [facility] inhalation 06/05/22 disk 1 Puff at 2000, [...] Routine, Pain (scale 4-6) butalbital- 2021-08 Yes [id number] 1{tbl} Take 1 [facility] acetaminoph 0-31 tablet by ity of en-caff 00:00: mouth [place] 50-325-40 00 every 4 Medical mg tablet (four) Branch hours as needed (Headaches ). butalbital- 2021-08 Yes [id number] 1{tbl} Take 1 [facility] acetaminoph 0-31 tablet by ity of en-caff 00:00: mouth [place] 50-325-40 00 every 4 Medical mg tablet (four) Branch hours as needed (Headaches ). butalbital- 2021-08 Yes [id number] 1{tbl} Take 1 [facility] acetaminoph 0-31 tablet by ity of en-caff 00:00: mouth [place] 50-325-40 00 every 4 Medical mg tablet (four) Branch hours as needed (Headaches ). butalbital- 2021-08 Yes [id number] 1{tbl} Take 1 [facility] acetaminoph 0-31 tablet by ity of en-caff 00:00: mouth [place] 50-325-40 00 every 4 Medical mg tablet (four) Branch hours as needed (Headaches ). butalbital- 2021-08 Yes [id number] 1{tbl} Take 1 [facility] acetaminoph 0-31 tablet by ity of en-caff 00:00: mouth [place] 50-325-40 00 every 4 Medical mg tablet (four) Branch hours as needed (Headaches ). butalbital- 2021-08 Yes [id number] 1{tbl} Take 1 [facility] acetaminoph 0-31 tablet by ity of en-caff 00:00: mouth [place] 50-325-40 00 every 4 Medical mg tablet (four) Branch hours as needed (Headaches ). butalbital2021-08 Yes [id number] 1{tbl} Take 1 [facility] acetaminoph 0-31 tablet by ity of en-caff 00:00: mouth [place] 50-325-40 00 every 4 Medical mg tablet (four) Branch hours as needed (Headaches ). butalbital2021-08 Yes [id number] 1{tbl} Take 1 [facility] acetaminoph 0-31 tablet by ity of en-caff 00:00: mouth [place] 50-325-40 00 every 4 Medical mg tablet (four) Branch hours as needed (Headaches ). butalbital2021-08 Yes [id number] 1{tbl} Take 1 [facility] acetaminoph 0-31 tablet by ity of en-caff 00:00: mouth [place] 50-325-40 00 every 4 Medical mg tablet (four) Branch hours as needed (Headaches ). butalbital2021-08 Yes [id number] 1{tbl} Take 1 [facility] acetaminoph 0-31 tablet by ity of en-caff 00:00: mouth [place] 50-325-40 00 every 4 Medical mg tablet (four) Branch hours as needed (Headaches ). butalbital2021-08 Yes [id number] 1{tbl} Take 1 [facility] acetaminoph 0-31 tablet by ity of en-caff 00:00: mouth [place] 50-325-40 00 every 4 Medical mg tablet (four) Branch hours as needed (Headaches ). butalbital2021-08 Yes [id number] 1{tbl} Take 1 [facility] acetaminoph 0-31 tablet by ity of en-caff 00:00: mouth [place] 50-325-40 00 every 4 Medical mg tablet (four) Branch hours as needed (Headaches ). butalbital2021-08 Yes [id number] 1{tbl} Take 1 [facility] acetaminoph 0-31 tablet by ity of en-caff 00:00: mouth [place] 50-325-40 00 every 4 Medical mg tablet (four) Branch hours as needed (Headaches ). butalbital2021-08 Yes [id number] 1{tbl} Take 1 [facility] acetaminoph 0-31 tablet by ity of en-caff 00:00: mouth [place] 50-325-40 00 every 4 Medical mg tablet (four) Branch hours as needed (Headaches ). butbital2021-08 Yes [id number] 1{tbl} Take 1 [facility] acetaminoph 0-31 tablet by ity of en-caff 00:00: mouth [place] 50-325-40 00 every 4 Medical mg tablet (four) Branch hours as needed (Headaches ). butbital2021-08 Yes [id number] 1{tbl} Take 1 [facility] acetaminoph 0-31 tablet by ity of en-caff 00:00: mouth [place] 50-325-40 00 every 4 Medical mg tablet (four) Branch hours as needed (Headaches ). butalbit2021-08 Yes [id number] 1{tbl} Take 1 [facility] acetaminoph 0-31 tablet by ity of en-caff 00:00: mouth [place] 50-325-40 00 every 4 Medical mg tablet (four) Branch hours as needed (Headaches ). butbit2021-08 Yes [id number] 1{tbl} Take 1 [facility] acetaminoph 0-31 tablet by ity of en-caff 00:00: mouth [place] 50-325-40 00 every 4 Medical mg tablet (four) Branch hours as needed (Headaches ). butbit2021-08 Yes [id number] 1{tbl} Take 1 Univers acetaminoph 0-31 tablet by ity of en-caff 00:00: mouth [place] 50-325-40 00 every 4 Medical mg tablet (four) Branch hours as needed (Headaches ). butalbital2021-08 Yes [id number] 1{tbl} Take 1 [facility] acetaminoph 0-31 tablet by ity of en-caff 00:00: mouth [place] 50-325-40 00 every 4 Medical mg tablet (four) Branch hours as needed (Headaches ). butalbital2021-08 Yes [id number] 1{tbl} Take 1 [facility] acetaminoph 0-31 tablet by ity of en-caff 00:00: mouth [place] 50-325-40 00 every 4 Medical mg tablet (four) Branch hours as needed (Headaches ). butalbital2021-08 Yes [id number] 1{tbl} Take 1 [facility] acetaminoph 0-31 tablet by ity of en-caff 00:00: mouth [place] 50-325-40 00 every 4 Medical mg tablet (four) Branch hours as needed (Headaches ). butalbital2021-08 Yes [id number] 1{tbl} Take 1 [facility] acetaminoph 0-31 tablet by ity of en-caff 00:00: mouth [place] 50-325-40 00 every 4 Medical mg tablet (four) Branch hours as needed (Headaches ). butalbital2021-08 Yes [id number] 1{tbl} Take 1 [facility] acetaminoph 0-31 tablet by ity of en-caff 00:00: mouth [place] 50-325-40 00 every 4 Medical mg tablet (four) Branch hours as needed (Headaches ). butalbital2021-08 Yes [id number] 1{tbl} Take 1 [facility] acetaminoph 0-31 tablet by ity of en-caff 00:00: mouth [place] 50-325-40 00 every 4 Medical mg tablet (four) Branch hours as needed (Headaches ). butalbital2021-08 Yes [id number] 1{tbl} Take 1 [facility] acetaminoph 0-31 tablet by ity of en-caff 00:00: mouth [place] 50-325-40 00 every 4 Medical mg tablet (four) Branch hours as needed (Headaches ). butalbital2021-08 Yes [id number] 1{tbl} Take 1 [facility] acetaminoph 0-31 tablet by ity of en-caff 00:00: mouth [place] 50-325-40 00 every 4 Medical mg tablet (four) Branch hours as needed (Headaches ). butalbital2021-08 Yes [id number] 1{tbl} Take 1 [facility] acetaminoph 0-31 tablet by ity of en-caff 00:00: mouth [place] 50-325-40 00 every 4 Medical mg tablet (four) Branch hours as needed (Headaches ). butalbital2021-08 Yes [id number] 1{tbl} Take 1 Univers acetaminoph 0-31 tablet by ity of en-caff 00:00: mouth [place] 50-325-40 00 every 4 Medical mg tablet (four) Branch hours as needed (Headaches ). butbital2021-08 Yes [id number] 1{tbl} Take 1 Univers acetaminoph 0-31 tablet by ity of en-caff 00:00: mouth [place] 50-325-40 00 every 4 Medical mg tablet (four) Branch hours as needed (Headaches ). butbital2021-08 Yes [id number] 1{tbl} Take 1 Univers acetaminoph 0-31 tablet by ity of en-caff 00:00: mouth [place] 50-325-40 00 every 4 Medical mg tablet (four) Branch hours as needed (Headaches ). butbital2021-08 Yes [id number] 1{tbl} Take 1 [facility] acetaminoph 0-31 tablet by ity of en-caff 00:00: mouth [place] 50-325-40 00 every 4 Medical mg tablet (four) Branch hours as needed (Headaches ). butbit2021-08 Yes [id number] 1{tbl} Take 1 Univers acetaminoph 0-31 tablet by ity of en-caff 00:00: mouth [place] 50-325-40 00 every 4 Medical mg tablet (four) Branch hours as needed (Headaches ). butbital2021-08 Yes [id number] 1{tbl} Take 1 [facility] acetaminoph 0-31 tablet by ity of en-caff 00:00: mouth [place] 50-325-40 00 every 4 Medical mg tablet (four) Branch hours as needed (Headaches ). butalbital2021-08 Yes [id number] 1{tbl} Take 1 [facility] acetaminoph 0-31 tablet by ity of en-caff 00:00: mouth [place] 50-325-40 00 every 4 Medical mg tablet (four) Branch hours as needed (Headaches ). butalbital2021-08 Yes [id number] 1{tbl} Take 1 [facility] acetaminoph 0-31 tablet by ity of en-caff 00:00: mouth [place] 50-325-40 00 every 4 Medical mg tablet (four) Branch hours as needed (Headaches ). butalbital2021-08 Yes [id number] 1{tbl} Take 1 [facility] acetaminoph 0-31 tablet by ity of en-caff 00:00: mouth [place] 50-325-40 00 every 4 Medical mg tablet (four) Branch hours as needed (Headaches ). [facility]- 2021-08- No [id number] 1{tbl} Take 1 Univers acetaminoph 0-31 -27 tablet by it y of en-caff 00:00: 00:00 mouth [place] 50-325-40 00 :00 every 4 Medical mg tablet (four) Branch hours as needed (Headaches ). [facility]- 2021-08- No Unive rs acetaminoph 0-31 - ity of en-caff 00:00: 00:00 [place] 50-325-40 00 :00 Medical mg tablet Branch [facility]- 2021-08- No [id number] 1{tbl} Take 1 Univers acetaminoph 0-31 -27 tablet by it y of en-caff 00:00: 00:00 mouth [place] 50-325-40 00 :00 every 4 Medical mg tablet (four) Branch hours as needed (Headaches ). [facility]- 2021-08- No Unive rs acetaminoph 0-31 - ity of en-caff 00:00: 00:00 [place] 50-325-40 00 :00 Medical mg tablet Branch [facility]- 2021-08- No [id number] 1{tbl} Take 1 Univers acetaminoph 0-31 -27 tablet by it y of en-caff 00:00: 00:00 mouth [place] 50-325-40 00 :00 every 4 Medical mg tablet (four) Branch hours as needed (Headaches ). traMADoL 50 2021-08 No [id number] 50mg Take 1 Uni vers mg tablet 0-31 11-08 tablet by ity of 00:00: 05:59 mouth [place] 00 :00 every 6 Medical (six) Branch hours as needed for Pain (scale 4-6) for up to 7 days. Indication s: acute pain traMADoL 50 2021-08 No [id number] 50mg Take 1 Uni vers mg tablet 0-31 11-08 tablet by ity of 00:00: 05:59 mouth [place] 00 :00 every 6 Medical (six) Branch hours as needed for Pain (scale 4-6) for up to 7 days. Indication s: acute pain traMADoL 50 2021-08- No [id number] 50mg Take 1 Uni vers mg tablet 0 1108 tablet by ity of 00:00: 05:59 mouth [place] 00 :00 every 6 Medical (six) Branch hours as needed for Pain (scale 4-6) for up to 7 days. Indication s: acute pain tiZANidine 2021-08 Yes 4mg 4 mg, Univer s (ZANAFLEX) 0-30 Oral, TID, ity of tablet 4 mg 19:00: First dose [place] 00 on [facility] 06/05/22 Branch at 1400, Until Discontinu ed enoxaparin 2021-08 Yes 40mg 40 mg, Unive rs (LOVENOX) 0-30 Subcutaneo ity of injection 16:00: us, Q24H, [place] 40 mg 00 First dose Medical on [facility] 06/05/22 at 1100, Until Discontinu ed, Routine HYDROcodone 2021-08- No 1{tbl} 1 tablet, Univers -acetaminop 0-30 31 Oral, ity of hen (NORCO 14:46: 00:46 Q4HPRN, [place] 5) 5-325 mg 10 :01 Starting Medi benj[place] tablet 1 on [facility] tablet 06/05/22 at 0946, Until 06/05/22 at 1946, Routine, Pain (scale 7-10) butalbital- 2021-08 Yes 1{tbl} 1 tablet, Univers acetaminoph 0-30 Oral, ity of en-caff 14:44: Q4HPRN, [place] (ESGIC) 37 Starting Medical 50-325-40 on [facility] Branch mg tablet 1 06/05/22 tablet at 0944, Until Discontinu ed, Routine, Headaches acetaminoph 2021-08 Yes 650mg 650 mg, Un claudia en 0-30 Oral, ity of (TYLENOL) 14:43: Q6HPRN, [place] tablet 650 07 Starting Medic al mg on [place] [facility] 06/05/22 at 0943, Until Discontinu ed, Routine, Pain (scale 1-3) bisacodyL 2021-08 Yes 10mg 10 mg, Univer s (DULCOLAX) 0-30 Rectal, ity of suppository 14:42: QHSPRN, [place] 10 mg 04 Starting Medical on [place] Branch 06/05/22 at 0942, Until Discontinu ed, Routine, Constipati on NaCl 0.9% 2021-08 Yes 5mL 5 mL, Slow Un claudia (NS) 0-30 IV Push, ity of injection 5 14:42: PRN - SEE [place] mL 04 INSTRUCTIO Medical NS, Branch Starting on [facility] 06/05/22 at 0942, Until Discontinu ed, 10 mL NaCl 0.9% 2021-08- No 500mL at 999 Univ ers (NS) bolus 0-30 10-30 mL/hr, 500 it y of infusion 14:15: 14:51 mL, IV [place] 500 mL 00 :00 Infusion, Medical ONCE, 1 Branch dose, On [facility] 06/05/22 at 0915, TALIA magnesium 2021-08 No 2g 2 g, IV Univ ers sulfate in 0-30 10-30 Piggyback, it y of water 2 14:15: 14:51 Administer [place] gram/50 mL 00 :00 over 60 Medica l (4 %) Minutes, Branch infusion 2 ONCE, 1 g dose, On [place] 06/05/22 at 0915, TAL[place] diphenhydrA 2021-08- No 25mg 25 mg, Uni vers MINE 0-30 10-30 Slow IV ity of (BENADRYL) 13:18: 13:39 Push, [place] injection 00 :00 ONCE, 1 Medical 25 mg dose, On [facility] 06/05/22 at 0830, STAT metoclopram 2021-08- No 10mg 10 mg, Uni vers edgar HCl 0-30 10-30 Slow IV ity of (REGLAN) 13:17: 13:39 Push, [place] injection 00 :00 ONCE, 1 Medical 10 mg dose, On Branch [facility] 06/05/22 at 0830, TALIA budesonide- 2021-08 Yes [...] 40 mg 00 First dose Medical on Sat Branch 06/04/22 at 1030, Until Discontinu ed, Routine enoxaparin 2021-08 40mg 40 mg, Univ ers (LOVENOX) 0-29 10-29 Subcutaneo ity of injection 15:30: 20:20 us, Q24H, [place] 40 mg 00 :38 First dose Medical on Sat Branch 06/04/22 at 1030, Until Discontinu ed, [...] 37 bedtime. Medical Branch pantoprazol 2021-08 Yes [id number] 40mg Take 1 Univers e 40 mg EC 0-29 tablet by ity of tablet 00:00: mouth at [place] 00 bedtime. Medical Branch pantoprazol 2021-08 Yes [id number] 40mg Take 1 Univers e 40 mg EC 0-29 tablet by ity of tablet 00:00: mouth at [place] [address] bedtime. Medical Branch pantoprazol 2021-08 Yes [id number] 40mg Take 1 Univers e 40 mg EC 0-29 tablet by ity of tablet 00:00: mouth at [place] bedtime. Medical Branch pantoprazol 2021-08 Yes [id number] 40mg Take 1 Univers e 40 mg EC 0-29 tablet by ity of tablet 00:00: mouth at [place] [address] bedtime. Medical Branch pantoprazol 2021-08 Yes [id number] 40mg Take 1 Univers e 40 mg EC 0-29 tablet by ity of tablet 00:00: mouth at [place] 00 bedtime. Medical Branch pantoprazol 2021-08 Yes [id number] 40mg Take 1 Univers e 40 mg EC 0-29 tablet by ity of tablet 00:00: mouth at [place] [address] bedtime. Medical Branch pantoprazol 2021-08 Yes [id number] 40mg Take 1 Univers e 40 mg EC 0-29 tablet by ity of tablet 00:00: mouth at [place] [address] bedtime. Medical Branch pantoprazol 2021-08 Yes [id number] 40mg Take 1 Univers e 40 mg EC 0-29 tablet by ity of tablet 00:00: mouth at [place] [address] bedtime. Medical Branch pantoprazol 2021-08 Yes [id number] 40mg Take 1 Univers e 40 mg EC 0-29 tablet by ity of tablet 00:00: mouth at [place] [address] bedtime. Medical Branch pantoprazol 2021-08 Yes [id number] 40mg Take 1 Univers e 40 mg EC 0-29 tablet by ity of tablet 00:00: mouth at [place] [address] bedtime. Medical Branch pantoprazol 2021-08 Yes [id number] 40mg Take 1 Univers e 40 mg EC 0-29 tablet by ity of tablet 00:00: mouth at [place] [address] bedtime. Medical Branch pantoprazol 2021-08 Yes [id number] 40mg Take 1 Univers e 40 mg EC 0-29 tablet by ity of tablet 00:00: mouth at [place] [address] bedtime. Medical Branch pantoprazol 2021-08 Yes [id number] 40mg Take 1 Univers e 40 mg EC 0-29 tablet by ity of tablet 00:00: mouth at [place] [address] bedtime. Medical Branch pantoprazol 2021-08 Yes [id number] 40mg Take 1 Univers e 40 mg EC 0-29 tablet by ity of tablet 00:00: mouth at [place] bedtime. Medical Branch pantoprazol 2021-08 Yes [id number] 40mg Take 1 Univers e 40 mg EC 0-29 tablet by ity of tablet 00:00: mouth at [place] bedtime. Medical Branch pantoprazol 2021-08 Yes [id number] 40mg Take 1 Univers e 40 mg EC 0-29 tablet by ity of tablet 00:00: mouth at [place] bedtime. Medical Branch pantoprazol 2021-08 Yes [id number] 40mg Take 1 Univers e 40 mg EC 0-29 tablet by ity of tablet 00:00: mouth at [place] bedtime. Medical Branch pantoprazol 2021-08 Yes [id number] 40mg Take 1 Univers e 40 mg EC 0-29 tablet by ity of tablet 00:00: mouth at [place] bedtime. Medical Branch pantoprazol 2021-08 Yes [id number] 40mg Take 1 Univers e 40 mg EC 0-29 tablet by ity of tablet 00:00: mouth at [place] [address] bedtime. Medical Branch pantoprazol 2021-08 Yes [id number] 40mg Take 1 Univers e 40 mg EC 0-29 tablet by ity of tablet 00:00: mouth at [place] bedtime. Medical Branch pantoprazol 2021-08 Yes [id number] 40mg Take 1 Univers e 40 mg EC 0-29 tablet by ity of tablet 00:00: mouth at [place] [address] bedtime. Medical Branch pantoprazol 2021-08 Yes [id number] 40mg Take 1 Univers e 40 mg EC 0-29 tablet by ity of tablet 00:00: mouth at [place] [address] bedtime. Medical Branch pantoprazol 2021-08 Yes [id number] 40mg Take 1 Univers e 40 mg EC 0-29 tablet by ity of tablet 00:00: mouth at [place] [address] bedtime. Medical Branch pantoprazol 2021-08 Yes [id number] 40mg Take 1 Univers e 40 mg EC 0-29 tablet by ity of tablet 00:00: mouth at [place] [address] bedtime. Medical Branch pantoprazol 2021-08 Yes [id number] 40mg Take 1 Univers e 40 mg EC 0-29 tablet by ity of tablet 00:00: mouth at [place] [address] bedtime. Medical Branch pantoprazol 2021-08 Yes [id number] 40mg Take 1 Univers e 40 mg EC 0-29 tablet by ity of tablet 00:00: mouth at [place] 00 bedtime. Medical Branch pantoprazol 2021-08 Yes [id number] 40mg Take 1 Univers e 40 mg EC 0-29 tablet by ity of tablet 00:00: mouth at [place] bedtime. Medical Branch pantoprazol 2021-08 Yes [id number] 40mg Take 1 Univers e 40 mg EC 0-29 tablet by ity of tablet 00:00: mouth at [place] bedtime. Medical Branch pantoprazol 2021-08 Yes [id number] 40mg Take 1 Univers e 40 mg EC 0-29 tablet by ity of tablet 00:00: mouth at [place] 00 bedtime. Medical Branch pantoprazol 2021-08 Yes [id number] 40mg Take 1 Univers e 40 mg EC 0-29 tablet by ity of tablet 00:00: mouth at [place] bedtime. Medical Branch pantoprazol 2021-08 Yes [id number] 40mg Take 1 Univers e 40 mg EC 0-29 tablet by ity of tablet 00:00: mouth at [place] [address] bedtime. Medical Branch pantoprazol 2021-08 Yes [id number] 40mg Take 1 Univers e 40 mg EC 0-29 tablet by ity of tablet 00:00: mouth at [place] bedtime. Medical Branch pantoprazol 2021-08 Yes [id number] 40mg Take 1 Univers e 40 mg EC 0-29 tablet by ity of tablet 00:00: mouth at [place] [address] bedtime. Medical Branch pantoprazol 2021-08 Yes [id number] 40mg Take 1 Univers e 40 mg EC 0-29 tablet by ity of tablet 00:00: mouth at [place] [address] bedtime. Medical Branch pantoprazol 2021-08 Yes [id number] 40mg Take 1 Univers e 40 mg EC 0-29 tablet by ity of tablet 00:00: mouth at [place] 00 bedtime. Medical Branch pantoprazol 2021-08 Yes [id number] 40mg Take 1 Univers e 40 mg EC 0-29 tablet by ity of tablet 00:00: mouth at [place] [address] bedtime. Medical Branch pantoprazol 2021-08 Yes [id number] 40mg Take 1 Univers e 40 mg EC 0-29 tablet by ity of tablet 00:00: mouth at [place] [address] bedtime. Medical Branch pantoprazol 2021-08 Yes [id number] 40mg Take 1 Univers e 40 mg EC 0-29 tablet by ity of tablet 00:00: mouth at [place] 00 bedtime. Medical Branch pantoprazol 2021-08 Yes [id number] 40mg Take 1 Univers e 40 mg EC 0-29 tablet by ity of tablet 00:00: mouth at [place] 00 bedtime. Medical Branch pantoprazol 2021-08 Yes [id number] 40mg Take 1 Univers e 40 mg EC 0-29 tablet by ity of tablet 00:00: mouth at [place] 00 bedtime. Medical Branch pantoprazol 2021-08- No [id number] 40mg Take 1 Univers e 40 mg EC 0-29 -27 tablet by ity of tablet 00:00: 00:00 mouth at [place] 00 :00 bedtime. Medical Branch pantoprazol 2021-08- No [id number] 40mg Take 1 [facility] e 40 mg EC 0-29 -27 tablet by ity of tablet 00:00: 00:00 mouth at [place] 00 :00 bedtime. Medical Branch pantoprazol 2021-08- No [id number] 40mg Take 1 [facility] e 40 mg EC 0-29 -27 tablet by ity of tablet 00:00: 00:00 mouth at [place] 00 :00 bedtime. Medical Branch HYDROcodone 2021-08 No [id number] 1{tbl} Take 1 [...] 2021-08 No 1000mg 1,000 mg, Univers (ANCEF) 006-04 Intravenou ity o f injection 22:45: 13:41 [...] [place] mg 00 Starting Medical on Mon Branch 06/03/22 at 1452, Until Discontinu ed, Routine, Pain (scale 7-10) morpHINE (4 2021-08 No 4mg 4 mg, Slow Univers mg/mL) 06-04 IV Push, ity of injection 4 19:52: 20:20 Q4HPRN, [place] mg 00 :38 Starting Medical on Mon Branch 06/03/22 at 1452, Until 06/04/22 at 1520, Routine, Pain (scale 7-10) ipratropium 2021-08 No 3mL 3 mL, Univ ers -albuteroL 06-03 Inhalation it y of (DUONEB) 18:45: 17:57 , ONCE, 1 [place] 0.5 mg-3 00 :00 dose, On Medical mg(2.5 mg Mon Branch base)/3 mL 06/03/22 nebulizer at 1345, solution 3 Routine mL HYDROcodone 2021-08- No 1{tbl} 1 tablet, Univers -acetaminop 006-03 Oral, ity of hen (NORCO 16:45: 17:30 ONCE, 1 [place] 5) 5-325 mg 00 :00 dose, On Medi benjie tablet 1 Mon Branch tablet 06/03/22 at 1145, Routine, PACU HYDROmorpho 2021-08- No .2mg 0.2 mg, Un claudia ne 006-03 Slow IV ity of (DILAUDID) 16:31: 19:34 Push, [place] injection 55 :12 Q5MIN PRN, Medi benjie 0.2 mg 10 doses, Branch Starting on Mon06/03/22 at 1131, Until Mon06/03/22 at 1434, Routine, Pain (scale 7-10), PACU
Us e approved by (Faculty): PACU USE -ANESTHESI A SERVICE-HY DROMORPHON E INJECTIONS vancomycin 2021-08- No PRN, Univer s (VANCOCIN) 006-03 Starting ity of 1 g in 15:27: 16:02 on Mon [place] sodium 00 :41 06/03/22 Medical chloride at 1027, Branch 0.9 % Until Mon irrigation 06/03/22 at 1102, 1,000 mL, Intra-op thrombin 2021-08- No PRN, Univers topical 006-03 Starting ity of solution 15:14: 16:02 on Mon 00 :41 06/03/22 Medical at 1014, Branch Until Mon06/03/22 at 1102, Routine, Intra-op lidocaine-e 2021-08- No PRN, Unive rs pinephrine 006-03 Starting ity of (XYLOCAINE 14:35: 16:02 on [place] WITH 00 :41 06/03/22 Medical EPINEPHRINE at 0935, Bran ch ) 0.5 Until Fri %-1:200,000 06/03/22 injection at 1102, Routine, Intra-op morpHINE (2 2021-08- No 2mg 2 mg, Slow [facility] mg/mL) 006-03 IV Push, ity of injection 2 14:15: 13:57 ONCE, 1 [place] mg 00 :00 dose, On Medical Fri Branch 06/03/22 at 0915, Routine docusate 2021-08 Yes 100mg 100 mg, Unive rs (COLACE) 0-28 Oral, ity of capsule 100 14:00: DAILY, [place] mg 00 First dose Medical on Mon Branch 06/03/22 at 0900, Until Discontinu ed, Routine docusate 2021-08 No 100mg 100 mg, Univ ers (COLACE) 0-06-04 Oral, ity of capsule 100 14:00: 20:20 DAILY, [place] mg 00 :38 First dose Medical on Mon Branch 06/03/22 at 0900, Until Discontinu ed, Routine levothyroxi 2021-08 Yes 137ug 137 mcg, U nivers ne 0- Oral, ity of (SYNTHROID) 03:30: Q24H, [place] tablet 137 00 First dose Med ical mcg on [facility] Branch 06/02/22 at 2230, Until Discontinu ed, Routine levothyroxi 2021-08 No 137ug 137 mcg, Univers ne 0-06-04 Oral, ity of (SYNTHROID) 03:30: 20:20 Q24H, [place] tablet 137 00 :38 First dose Med ical mcg on [facility] Branch 06/02/22 at 2230, Until Discontinu ed, Routine pantoprazol 2021-08 Yes 40mg 40 mg, Univ ers e 0-28 Oral, QHS, ity of (PROTONIX) 02:30: First dose [place] EC tablet 00 on [facility] Medical 40 mg 06/02/22 Branch at 2130, Until Discontinu ed, Routine pantoprazol 2021-08 No 40mg 40 mg, Uni vers e 0-06-04 Oral, QHS, ity of (PROTONIX) 02:30: 20:20 First dose [place] EC tablet 00 :38 on [facility] Medical 40 mg 06/02/22 Branch at 2130, Until Discontinu ed, Routine FLUoxetine 2021-08 Yes 20mg 20 mg, Unive rs (PROZAC) 0-28 Oral, QHS, ity o f capsule 20 02:00: First dose [place] mg 00 on [facility] 06/02/22 Branch at 2100, Until Discontinu ed amitriptyli 2021-08 Yes 25mg 25 mg, [place] [facility] ers ne (ELAVIL) 0-28 Oral, QHS, it y of tablet 25 02:00: First dose [place] mg 00 on [facility] 06/02/22 Branch at 2100, Until Discontinu ed, Routine FLUoxetine 2021-08- No 20mg 20 mg, [facility] ers (PROZAC) 0-28 10-29 Oral, QHS, ity of capsule 20 02:00: 20:20 First dose [place] mg 00 :38 on [facility] 06/02/22 Branch at 2100, Until Discontinu ed amitriptyli 2021-08 No 25mg 25 mg, Uni vers ne (ELAVIL) 0-28 10-29 Oral, QHS, i ty of tablet 25 02:00: 20:20 First dose [place] mg 00 :38 on [facility] 06/02/22 Branch at 2100, Until Discontinu ed, Routine Fluticasone 2021-08 Yes 1{puff} 1 Puff, Univers -Salmeterol 0 Inhalation it y of (ADVAIR) 01:00: , Q12H, [place] 500-50 00 First dose Medical mcg/dose on [facility] inhalation 06/02/22 disk 1 Puff at 2000, Until Discontinu ed, Routine Fluticasone 2021-08 No 1{puff} 1 Puff, Univers -Salmeterol 06-04 Inhalation i ty of (ADVAIR) 01:00: 20:20 , Q12H, [place] 500-50 00 :38 First dose Medical mcg/dose on [facility] inhalation 06/02/22 disk 1 Puff at 2000, Until Discontinu ed, Routine enoxaparin 2021-08 No 40mg 40 mg, [place] [facility] ers (LOVENOX) 0 10 Subcutaneo ity of injection 22:00: 13:22 us, Q24H, [place] 40 mg 00 :55 First dose Medical on [facility] 06/02/22 at 1700, Until Discontinu ed, Routine gadoteridol 2021-08- No [id number] .2mL/kg 19.86 mL Univers (PROHANCE-2 06-02 (0.2 mL/kg i ty of 0 mL) 21:45: 21:45 ?99.3 kg), [place] injection 00 :00 Intravenou Medi benjie 19.86 mL s, ONCE, 1 Branc h dose, On [place] 06/02/22 at 1645, Routine ondansetron 2021-08 Yes 4mg 4 mg, Slow Univers (ZOFRAN 0-27 IV Push, ity of (PF)) 19:02: Q6HPRN, [place] injection 4 30 Starting Medi benjie mg on [place] Branch 06/02/22 at 1402, Until Discontinu ed, Routine, Nausea and Vomiting (N/V) ondansetron 2021-08- No 4mg 4 mg, Slow Univers (ZOFRAN 0-27 10-29 IV Push, ity of (PF)) 19:02: 20:20 Q6HPRN, [place] injection 4 30 :38 Starting Medi benjie mg on [place] Branch 06/02/22 at 1402, Until 06/04/22 at 1520, Routine, Nausea and Vomiting (N/V) HYDROcodone 2021-08- No 1{tbl} 1 tablet, Univers -acetaminop 0-27 10 Oral, ity of hen (NORCO 19:02: 19:01 Q6HPRN, [place] 5) 5-325 mg 26 :26 Starting Medi benjie tablet 1 on [facility] Branch tablet 06/02/22 at 1402, Until 06/04/22 at 1401, Routine, Pain (scale 4-6) HYDROcodone 2021-08- No 1{tbl} 1 tablet, Univers -acetaminop 0-27 06-04 Oral, ity of hen (NORCO 19:02: 19:01 Q6HPRN, [place] 5) 5-325 mg 26 :26 Starting Medi benjie tablet 1 on [facility] Branch tablet 06/02/22 at 1402, Until 06/04/22 at 1401, Routine, Pain (scale 4-6) acetaminoph 2021-08 Yes 650mg 650 mg, Un claudia en 0- Oral, ity of (TYLENOL) 19:02: Q6HPRN, [place] tablet 650 24 Starting Medic al mg on [place] Branch 06/02/22 at 1402, Until Discontinu ed, Routine, Pain (scale 1-3) acetaminoph 2021-08- No 650mg 650 mg, U nivers en 06-04 Oral, ity of (TYLENOL) 19:02: 20:20 Q6HPRN, [place] tablet 650 24 :38 Starting Medic al mg on [facility] Branch 06/02/22 at 1402, Until 06/04/22 at 1520, Routine, Pain (scale 1-3) ketorolac 2021-08- No 30mg 30 mg, Unive rs (TORADOL) 006-02 Slow IV ity of injection 16:45: 16:32 Push, [place] 30 mg 00 :00 ONCE, 1 Medical dose, On Branch [facility] 06/02/22 at 1145, Routine morpHINE (2 2021-08 No 6mg 6 mg, Slow Univers mg/mL) 06-02 IV Push, ity of injection 6 16:00: 16:32 ONCE, 1 [place] mg 00 :00 dose, On Medical [facility] Branch 06/02/22 at 1100, STAT budesonide- [...] needed Branch (wheezing) . nystatin 2021-08- No [id number] Take 10 mL Univers 100,000 0-12 10-20 U by mouth 4 ity o f unit/mL 00:00: 04:59 (four) [place] suspension 00 :00 times Medical daily for Branch 7 days. nystatin 2021-08- No [id number] Take 10 mL Univers 100,000 0-12 10-20 U by mouth 4 ity o f unit/mL 00:00: 04:59 (four) [place] suspension 00 :00 times Medical daily for Branch 7 days. nystatin 2021-08- No [id number] Take 10 mL [facility] 100,000 0-12 10-20 U by mouth 4 ity o f unit/mL 00:00: 04:59 (four) [place] suspension 00 :00 times Medical daily for Branch 7 days. nystatin 2021-08- No [id number] Take 10 mL Univers 100,000 0-12 10-20 U by mouth 4 ity o f unit/mL 00:00: 04:59 (four) [place] suspension 00 :00 times Medical daily for Branch 7 days. fluconazole 2021-08- No [id number] 150mg Take 1 Univers (DIFLUCAN) 0-12 10-13 tablet by ity of 150 mg 00:00: 04:59 mouth [place] tablet 00 :00 now for 1 Medical dose. Branch fluconazole 2021-08- No [id number] 150mg Take 1 Univers (DIFLUCAN) 0-12 10-13 [...] mg 03:00: First dose [place] 00 on [facility] Medical 05/14/22 at Branch 2200, Until Discontinu ed, Routine amitriptyli 2021-08 Yes 25mg 25 mg, Univ ers ne (ELAVIL) 0-09 Oral, QHS, it y of tablet 25 02:00: First dose [place] mg 00 on [facility] Medical 05/14/22 at Branch 2100, Until Discontinu ed, Routine pregabalin 2021-08- No [id number] 150mg Take 1 [facility] 150 mg 008-14 capsule by ity of capsule 00:00: 05:59 mouth in [place] 00 :00 the [facility] morning Branch and 1 capsule at noon and 1 capsule in the evening. Do all this for 90 days. amitriptyli 2021-08- No [id number] 25mg Take 1 Univers ne 25 mg 008 tablet by ity o f tablet 00:00: 05:59 mouth at [place] 00 :00 bedtime Medical for 90 Branch days. tiZANidine 2021-08- No [id number] 4mg Take 1 Univers 4 mg 008-14 capsule by ity of capsule 00:00: 05:59 mouth in [place] 00 :00 the [facility] and 1 capsule at noon and 1 capsule in the evening. Do all this for 90 days. docusate 2021-08- No [id number] 100mg Take 1 Univers (COLACE) 0-08 capsule by ity of 100 mg 00:00: 05:59 mouth in [place] capsule 00 :00 the [facility] for 90 days. pregabalin 2021-08- No [id number] 150mg Take 1 [facility] 150 mg 008 capsule by ity of capsule 00:00: 05:59 mouth in [place] 00 :00 the [facility] Branch and 1 capsule at noon and 1 capsule in the evening. Do all this for 90 days. amitriptyli 2021-08- No [id number] 25mg Take 1 Univers ne 25 mg 008 tablet by ity o f tablet 00:00: 05:59 mouth at [place] 00 :00 bedtime Medical for 90 Branch days. tiZANidine 2021-08- No [id number] 4mg Take 1 [facility] 4 mg 0-08 capsule by ity of capsule 00:00: 05:59 mouth in [place] 00 :00 the Medical morning Branch and 1 capsule at noon and 1 capsule in the evening. Do all this for 90 days. docusate 2021-08- No [id number] 100mg Take 1 Univers (COLACE) 0-04 07-08 capsule by ity of 100 mg 00:00: 05:59 mouth in [place] capsule 00 :00 the Medical morning Branch for 90 days. pregabalin 2021-08- No [id number] 150mg Take 1 [facility] 150 mg 0-04 07-08 capsule by ity of capsule 00:00: 05:59 mouth in [place] 00 :00 the Medical morning Branch and 1 capsule at noon and 1 capsule in the evening. Do all this for 90 days. amitriptyli 2021-08- No [id number] 25mg Take 1 [facility] ne 25 mg 008 tablet by ity o f tablet 00:00: 05:59 mouth at [place] 00 :00 bedtime Medical for 90 Branch days. tiZANidine 2021-08- No [id number] 4mg Take 1 [facility] 4 mg 0-08 capsule by ity of capsule 00:00: 05:59 mouth in [place] 00 :00 the Medical morning Branch and 1 capsule at noon and 1 capsule in the evening. Do all this for 90 days. docusate 2021-08- No [id number] 100mg Take 1 Univers (COLACE) 0-08 capsule by ity of 100 mg 00:00: 05:59 mouth in [place] capsule 00 :00 the Medical morning Branch for 90 days. pregabalin 2021-08- No [id number] 150mg Take 1 [facility] 150 mg 0-04 07-08 capsule by ity of capsule 00:00: 05:59 mouth in [place] 00 :00 the Medical morning Branch and 1 capsule at noon and 1 capsule in the evening. Do all this for 90 days. amitriptyli 2021-08- No [id number] 25mg Take 1 [facility] ne 25 mg 0-04 07-08 tablet by ity o f tablet 00:00: 05:59 mouth at [place] 00 :00 bedtime Medical for 90 Branch days. tiZANidine 2021-08- No [id number] 4mg Take 1 [facility] 4 mg 0-04 07-08 capsule by ity of capsule 00:00: 05:59 mouth in [place] 00 :00 the Medical morning Branch and 1 capsule at noon and 1 capsule in the evening. Do all this for 90 days. docusate 2021-08- No [id number] 100mg Take 1 Univers (COLACE) 0-04 07-08 capsule by ity of 100 mg 00:00: 05:59 mouth in [place] capsule 00 :00 the [facility] morning Branch for 90 days. pregabalin 2021-08- No [id number] 150mg Take 1 [facility] 150 mg 0-04 07-08 capsule by ity of capsule 00:00: 05:59 mouth in [place] 00 :00 the [facility] Branch and 1 capsule at noon and 1 capsule in the evening. Do all this for 90 days. amitriptyli 2021-08- No [id number] 25mg Take 1 Univers ne 25 mg 0-08 tablet by ity o f tablet 00:00: 05:59 mouth at [place] 00 :00 bedtime Medical for 90 Branch days. tiZANidine 2021-08- No [id number] 4mg Take 1 Univers 4 mg 0-08 capsule by ity of capsule 00:00: 05:59 mouth in [place] 00 :00 the [facility] morning Branch and 1 capsule at noon and 1 capsule in the evening. Do all this for 90 days. docusate 2021-08- No [id number] 100mg Take 1 Univers (COLACE) 0-08 capsule by ity of 100 mg 00:00: 05:59 mouth in [place] capsule 00 :00 the [facility] for 90 days. pregabalin 2021-08- No [id number] 150mg Take 1 [facility] 150 mg 0-04 07-08 capsule by ity of capsule 00:00: 05:59 mouth in [place] 00 :00 the [facility] morning Branch and 1 capsule at noon and 1 capsule in the evening. Do all this for 90 days. amitriptyli 2021-08- No [id number] 25mg Take 1 Univers ne 25 mg 0-04 07-08 tablet by ity o f tablet 00:00: 05:59 mouth at [place] 00 :00 bedtime Medical for 90 Branch days. tiZANidine 2021-08- No [id number] 4mg Take 1 Univers 4 mg 0-04 07-08 capsule by ity of capsule 00:00: 05:59 mouth in [place] 00 :00 the Medical morning Branch and 1 capsule at noon and 1 capsule in the evening. Do all this for 90 days. docusate 2021-08- No [id number] 100mg Take 1 Univers (COLACE) 0-04 07-08 capsule by ity of 100 mg 00:00: 05:59 mouth in [place] capsule 00 :00 the Medical morning Branch for 90 days. pregabalin 2021-08- No [id number] 150mg Take 1 [facility] 150 mg 0-04 07-08 capsule by ity of capsule 00:00: 05:59 mouth in [place] 00 :00 the Medical morning Branch and 1 capsule at noon and 1 capsule in the evening. Do all this for 90 days. amitriptyli 2021-08- No [id number] 25mg Take 1 Univers ne 25 mg 0-04 07-08 tablet by ity o f tablet 00:00: 05:59 mouth at [place] 00 :00 bedtime Medical for 90 Branch days. tiZANidine 2021-08- No [id number] 4mg Take 1 Univers 4 mg 0-08 capsule by ity of capsule 00:00: 05:59 mouth in [place] 00 :00 the Medical morning Branch and 1 capsule at noon and 1 capsule in the evening. Do all this for 90 days. docusate 2021-08- No [id number] 100mg Take 1 Univers (COLACE) 0-08 capsule by ity of 100 mg 00:00: 05:59 mouth in [place] capsule 00 :00 the Medical morning Branch for 90 days. pregabalin 2021-08- No [id number] 150mg Take 1 Univers 150 mg 0-09 -08 capsule by ity of capsule 00:00: 05:59 mouth in [place] 00 :00 the Medical morning Branch and 1 capsule at noon and 1 capsule in the evening. Do all this for 90 days. amitriptyli 2021-08- No [id number] 25mg Take 1 Univers ne 25 mg 0-09 01-08 tablet by ity o f tablet 00:00: 05:59 mouth at [place] 00 :00 bedtime Medical for 90 Branch days. tiZANidine 2021-08- No [id number] 4mg Take 1 Univers 4 mg 0-08 capsule by ity of capsule 00:00: 05:59 mouth in [place] 00 :00 the Medical morning Branch and 1 capsule at noon and 1 capsule in the evening. Do all this for 90 days. docusate 2021-08- No [id number] 100mg Take 1 Univers (COLACE) 008 capsule by ity of 100 mg 00:00: 05:59 mouth in [place] capsule 00 :00 the Medical morning Branch for 90 days. pregabalin 2021-08- No [id number] 150mg Take 1 [facility] 150 mg 008-14 capsule by ity of capsule 00:00: 05:59 mouth in [place] 00 :00 the Medical morning Branch and 1 capsule at noon and 1 capsule in the evening. Do all this for 90 days. amitriptyli 2021-08- No [id number] 25mg Take 1 Univers ne 25 mg 008-14 tablet by ity o f tablet 00:00: 05:59 mouth at [place] 00 :00 bedtime Medical for 90 Branch days. tiZANidine 2021-08- No [id number] 4mg Take 1 Univers 4 mg 008-14 capsule by ity of capsule 00:00: 05:59 mouth in [place] 00 :00 the Medical morning Branch and 1 capsule at noon and 1 capsule in the evening. Do all this for 90 days. docusate 2021-08- No [id number] 100mg Take 1 Univers (COLACE) 008-14 capsule by ity of 100 mg 00:00: 05:59 mouth in [place] capsule 00 :00 the Medical morning Branch for 90 days. pregabalin 2021-08- No [id number] 150mg Take 1 [facility] 150 mg 0-08 capsule by ity of capsule 00:00: 05:59 mouth in [place] 00 :00 the Medical morning Branch and 1 capsule at noon and 1 capsule in the evening. Do all this for 90 days. amitriptyli 2021-08- No [id number] 25mg Take 1 Univers ne 25 mg 0-08 tablet by ity o f tablet 00:00: 05:59 mouth at [place] 00 :00 bedtime Medical for 90 Branch days. tiZANidine 2021-08- No [id number] 4mg Take 1 Univers 4 mg 0-08 capsule by ity of capsule 00:00: 05:59 mouth in [place] 00 :00 the Medical morning Branch and 1 capsule at noon and 1 capsule in the evening. Do all this for 90 days. docusate 2021-08- No [id number] 100mg Take 1 Univers (COLACE) 0-08 capsule by ity of 100 mg 00:00: 05:59 mouth in [place] capsule 00 :00 the Medical morning Branch for 90 days. pregabalin 2021-08- No [id number] 150mg Take 1 [facility] 150 mg 0-08 capsule by ity of capsule 00:00: 05:59 mouth in [place] 00 :00 the [facility] morning Branch and 1 capsule at noon and 1 capsule in the evening. Do all this for 90 days. amitriptyli 2021-08- No [id number] 25mg Take 1 Univers ne 25 mg 008 tablet by ity o f tablet 00:00: 05:59 mouth at [place] 00 :00 bedtime Medical for 90 Branch days. tiZANidine 2021-08- No [id number] 4mg Take 1 Univers 4 mg 0-08 capsule by ity of capsule 00:00: 05:59 mouth in [place] 00 :00 the Medical morning Branch and 1 capsule at noon and 1 capsule in the evening. Do all this for 90 days. docusate 2021-08- No [id number] 100mg Take 1 Univers (COLACE) 0-08 capsule by ity of 100 mg 00:00: 05:59 mouth in [place] capsule 00 :00 the [facility] morning Branch for 90 days. pregabalin 2021-08- No [id number] 150mg Take 1 [facility] 150 mg 0-08 capsule by ity of capsule 00:00: 05:59 mouth in [place] 00 :00 the Medical morning Branch and 1 capsule at noon and 1 capsule in the evening. Do all this for 90 days. amitriptyli 2021-08- No [id number] 25mg Take 1 Univers ne 25 mg 0-08 tablet by ity o f tablet 00:00: 05:59 mouth at [place] 00 :00 bedtime Medical for 90 Branch days. tiZANidine 2021-08- No [id number] 4mg Take 1 Univers 4 mg 0-04 07-08 capsule by ity of capsule 00:00: 05:59 mouth in [place] 00 :00 the Medical morning Branch and 1 capsule at noon and 1 capsule in the evening. Do all this for 90 days. docusate 2021-08- No [id number] 100mg Take 1 Univers (COLACE) 0-08 capsule by ity of 100 mg 00:00: 05:59 mouth in [place] capsule 00 :00 the Medical morning Branch for 90 days. pregabalin 2021-08- No [id number] 150mg Take 1 [facility] 150 mg 0-08 capsule by ity of capsule 00:00: 05:59 mouth in [place] 00 :00 the [facility] morning Branch and 1 capsule at noon and 1 capsule in the evening. Do all this for 90 days. amitriptyli 2021-08- No [id number] 25mg Take 1 Univers ne 25 mg 0-08 tablet by ity o f tablet 00:00: 05:59 mouth at [place] 00 :00 bedtime Medical for 90 Branch days. tiZANidine 2021-08- No [id number] 4mg Take 1 Univers 4 mg 0-08 capsule by ity of capsule 00:00: 05:59 mouth in [place] 00 :00 the Medical morning Branch and 1 capsule at noon and 1 capsule in the evening. Do all this for 90 days. docusate 2021-08- No [id number] 100mg Take 1 Univers (COLACE) 0-08 capsule by ity of 100 mg 00:00: 05:59 mouth in [place] capsule 00 :00 the Medical morning Branch for 90 days. pregabalin 2021-08- No [id number] 150mg Take 1 [facility] 150 mg 0-04 07-08 capsule by ity of capsule 00:00: 05:59 mouth in [place] 00 :00 the Medical morning Branch and 1 capsule at noon and 1 capsule in the evening. Do all this for 90 days. amitriptyli 2021-08- No [id number] 25mg Take 1 Univers ne 25 mg 0-04 07-08 tablet by ity o f tablet 00:00: 05:59 mouth at [place] 00 :00 bedtime Medical for 90 Branch days. tiZANidine 2021-08- No [id number] 4mg Take 1 Univers 4 mg 0-04 07-08 capsule by ity of capsule 00:00: 05:59 mouth in [place] 00 :00 the Medical morning Branch and 1 capsule at noon and 1 capsule in the evening. Do all this for 90 days. docusate 2021-08- No [id number] 100mg Take 1 Univers (COLACE) 0-08 capsule by ity of 100 mg 00:00: 05:59 mouth in [place] capsule 00 :00 the [facility] morning Branch for 90 days. pregabalin 2021-08- No [id number] 150mg Take 1 [facility] 150 mg 0-08 capsule by ity of capsule 00:00: 05:59 mouth in [place] 00 :00 the [facility] morning Branch and 1 capsule at noon and 1 capsule in the evening. Do all this for 90 days. amitriptyli 2021-08- No [id number] 25mg Take 1 Univers ne 25 mg 0-08 tablet by ity o f tablet 00:00: 05:59 mouth at [place] 00 :00 bedtime Medical for 90 Branch days. tiZANidine 2021-08- No [id number] 4mg Take 1 Univers 4 mg 0-08 capsule by ity of capsule 00:00: 05:59 mouth in [place] 00 :00 the [facility] morning Branch and 1 capsule at noon and 1 capsule in the evening. Do all this for 90 days. docusate 2021-08- No [id number] 100mg Take 1 Univers (COLACE) 0-08 capsule by ity of 100 mg 00:00: 05:59 mouth in [place] capsule 00 :00 the [facility] morning Branch for 90 days. pregabalin 2021-08- No [id number] 150mg Take 1 [facility] 150 mg 0-04 07-08 capsule by ity of capsule 00:00: 05:59 mouth in [place] 00 :00 the Medical morning Branch and 1 capsule at noon and 1 capsule in the evening. Do all this for 90 days. amitriptyli 2021-08- No [id number] 25mg Take 1 Univers ne 25 mg 0-08 tablet by ity o f tablet 00:00: 05:59 mouth at [place] 00 :00 bedtime Medical for 90 Branch days. tiZANidine 2021-08- No [id number] 4mg Take 1 Univers 4 mg 0-04 07-08 capsule by ity of capsule 00:00: 05:59 mouth in [place] 00 :00 the Medical morning Branch and 1 capsule at noon and 1 capsule in the evening. Do all this for 90 days. docusate 2021-08- No [id number] 100mg Take 1 Univers (COLACE) 0-08 capsule by ity of 100 mg 00:00: 05:59 mouth in [place] capsule 00 :00 the Medical morning Branch for 90 days. pregabalin 2021-08- No [id number] 150mg Take 1 [facility] 150 mg 0-08 capsule by ity of capsule 00:00: 05:59 mouth in [place] 00 :00 the Medical morning Branch and 1 capsule at noon and 1 capsule in the evening. Do all this for 90 days. amitriptyli 2021-08- No [id number] 25mg Take 1 [facility] ne 25 mg 0-08 tablet by ity o f tablet 00:00: 05:59 mouth at [place] 00 :00 bedtime Medical for 90 Branch days. tiZANidine 2021-08- No [id number] 4mg Take 1 [facility] 4 mg 0-08 capsule by ity of capsule 00:00: 05:59 mouth in [place] 00 :00 the Medical morning Branch and 1 capsule at noon and 1 capsule in the evening. Do all this for 90 days. docusate 2021-08- No [id number] 100mg Take 1 Univers (COLACE) 0-04 07-08 capsule by ity of 100 mg 00:00: 05:59 mouth in [place] capsule 00 :00 the Medical morning Branch for 90 days. pregabalin 2021-08- No [id number] 150mg Take 1 [facility] 150 mg 0-09 -08 capsule by ity of capsule 00:00: 05:59 mouth in [place] 00 :00 the Medical morning Branch and 1 capsule at noon and 1 capsule in the evening. Do all this for 90 days. amitriptyli 2021-08- No [id number] 25mg Take 1 [facility] ne 25 mg 0-08 tablet by ity o f tablet 00:00: 05:59 mouth at [place] 00 :00 bedtime Medical for 90 Branch days. tiZANidine 2021-08- No [id number] 4mg Take 1 [facility] 4 mg 0-08 capsule by ity of capsule 00:00: 05:59 mouth in [place] 00 :00 the Medical morning Branch and 1 capsule at noon and 1 capsule in the evening. Do all this for 90 days. docusate 2021-08- No [id number] 100mg Take 1 [facility] (COLACE) 0-08 capsule by ity of 100 mg 00:00: 05:59 mouth in [place] capsule 00 :00 the Medical morning Branch for 90 days. pregabalin 2021-08- No [id number] 150mg Take 1 [facility] 150 mg 0-08 capsule by ity of capsule 00:00: 05:59 mouth in [place] 00 :00 the Medical morning Branch and 1 capsule at noon and 1 capsule in the evening. Do all this for 90 days. amitriptyli 2021-08- No [id number] 25mg Take 1 [facility] ne 25 mg 0-08 tablet by [facility] o f tablet 00:00: 05:59 mouth at [place] 00 :00 bedtime Medical for 90 Branch days. tiZANidine 2021-08- No [id number] 4mg Take 1 [facility] 4 mg 0-08 capsule by [facility] of capsule 00:00: 05:59 mouth in [place] 00 :00 the Medical morning Branch and 1 capsule at noon and 1 capsule in the evening. Do all this for 90 days. docusate 2021-08- No [id number] 100mg Take 1 [facility] (COLACE) 0-08 capsule by ity of 100 mg 00:00: 05:59 mouth in [place] capsule 00 :00 the Medical morning Branch for 90 days. pregabalin 2021-08- No [id number] 150mg Take 1 [facility] 150 mg 0-04 07-08 capsule by [facility] of capsule 00:00: 05:59 mouth in [place] 00 :00 the Medical morning Branch and 1 capsule at noon and 1 capsule in the evening. Do all this for 90 days. amitriptyli 2021-08- No [id number] 25mg Take 1 [facility] ne 25 mg 0-04 07-08 tablet by ity o f tablet 00:00: 05:59 mouth at [place] 00 :00 bedtime Medical for 90 Branch days. tiZANidine 2021-08- No [id number] 4mg Take 1 [facility] 4 mg 0-04 07-08 capsule by [facility] of capsule 00:00: 05:59 mouth in [place] 00 :00 the Medical morning Branch and 1 capsule at noon and 1 capsule in the evening. Do all this for 90 days. docusate 2021-08- No [id number] 100mg Take 1 [facility] (COLACE) 0-08 capsule by ity of 100 mg 00:00: 05:59 mouth in [place] capsule 00 :00 the [facility] for 90 days. pregabalin 2021-08- No [id number] 150mg Take 1 [facility] 150 mg 0-04 07-08 capsule by [facility]y of capsule 00:00: 05:59 mouth in [place] 00 :00 the [facility] morning Branch and 1 capsule at noon and 1 capsule in the evening. Do all this for 90 days. amitriptyli 2021-08- No [id number] 25mg Take 1 [facility] ne 25 mg 0-08 tablet by ity o f tablet 00:00: 05:59 mouth at [place] 00 :00 bedtime Medical for 90 Branch days. tiZANidine 2021-08- No [id number] 4mg Take 1 [facility] 4 mg 0-04 07-08 capsule by [facility]y of capsule 00:00: 05:59 mouth in [place] 00 :00 the Medical morning Branch and 1 capsule at noon and 1 capsule in the evening. Do all this for 90 days. docusate 2021-08- No [id number] 100mg Take 1 [facility] (COLACE) 0-09 01-08 capsule by ity of 100 mg 00:00: 05:59 mouth in [place] capsule 00 :00 the [facility] morning [place] for 90 days. pregabalin 2021-08- No [id number] 150mg Take 1 [facility] 150 mg 0-04 07-08 capsule by [facility] of capsule 00:00: 05:59 mouth in [place] 00 :00 the Medical morning Branch and 1 capsule at noon and 1 capsule in the evening. Do all this for 90 days. amitriptyli 2021-08- No [id number] 25mg Take 1 [facility] ne 25 mg 0-04 07-08 tablet by ity o f tablet 00:00: 05:59 mouth at [place] 00 :00 bedtime Medical for 90 Branch days. tiZANidine 2021-08- No [id number] 4mg Take 1 [facility] 4 mg 0-04 07-08 capsule by [facility]y of capsule 00:00: 05:59 mouth in [place] 00 :00 the Medical morning Branch and 1 capsule at noon and 1 capsule in the evening. Do all this for 90 days. docusate 2021-08- No [id number] 100mg Take 1 [facility] (COLACE) 0-08 capsule by [facility]y of 100 mg 00:00: 05:59 mouth in [place] capsule 00 :00 the [facility] morning Branch for 90 days. pregabalin 2021-08- No [id number] 150mg Take 1 [facility] 150 mg 0-04 07-08 capsule by [facility]y of capsule 00:00: 05:59 mouth in [place] 00 :00 the [facility] morning Branch and 1 capsule at noon and 1 capsule in the evening. Do all this for 90 days. amitriptyli 2021-08- No [id number] 25mg Take 1 [facility] ne 25 mg 0-08 tablet by ity o f tablet 00:00: 05:59 mouth at [place] 00 :00 bedtime Medical for 90 Branch days. tiZANidine 2021-08- No [id number] 4mg Take 1 [facility] 4 mg 0-04 07-08 capsule by [facility]y of capsule 00:00: 05:59 mouth in [place] 00 :00 the [facility] morning Branch and 1 capsule at noon and 1 capsule in the evening. Do all this for 90 days. docusate 2021-08- No [id number] 100mg Take 1 [facility] (COLACE) 0- 01-08 capsule by [facility]y of 100 mg 00:00: 05:59 mouth in [place] capsule 00 :00 the Medical morning Branch for 90 days. pregabalin 2021-08- No [id number] 150mg Take 1 [facility] 150 mg 0-04 07-08 capsule by [facility] of capsule 00:00: 05:59 mouth in [place] 00 :00 the Medical morning Branch and 1 capsule at noon and 1 capsule in the evening. Do all this for 90 days. amitriptyli 2021-08- No [id number] 25mg Take 1 [facility] ne 25 mg 0-04 07-08 tablet by ity o f tablet 00:00: 05:59 mouth at [place] 00 :00 bedtime Medical for 90 Branch days. tiZANidine 2021-08- No [id number] 4mg Take 1 [facility] 4 mg 0-04 07-08 capsule by [facility]y of capsule 00:00: 05:59 mouth in [place] 00 :00 the [facility] morning Branch and 1 capsule at noon and 1 capsule in the evening. Do all this for 90 days. docusate 2021-08- No [id number] 100mg Take 1 [facility] (COLACE) 0-08 capsule by ity of 100 mg 00:00: 05:59 mouth in [place] capsule 00 :00 the [facility] morning Branch for 90 days. pregabalin 2021-08- No [id number] 150mg Take 1 [facility] 150 mg 0-04 07-08 capsule by [facility]y of capsule 00:00: 05:59 mouth in [place] 00 :00 the [facility] morning Branch and 1 capsule at noon and 1 capsule in the evening. Do all this for 90 days. amitriptyli 2021-08- No [id number] 25mg Take 1 [facility] ne 25 mg 0-08 tablet by ity o f tablet 00:00: 05:59 mouth at [place] 00 :00 bedtime Medical for 90 Branch days. tiZANidine 2021-08- No [id number] 4mg Take 1 [facility] 4 mg 0-04 07-08 capsule by [facility] of capsule 00:00: 05:59 mouth in [place] 00 :00 the [facility] morning Branch and 1 capsule at noon and 1 capsule in the evening. Do all this for 90 days. docusate 2021-08- No [id number] 100mg Take 1 [facility] (COLACE) 0-09 01-08 capsule by [facility]y of 100 mg 00:00: 05:59 mouth in [place] capsule 00 :00 the Medical morning Branch for 90 days. pregabalin 2021-08- No [id number] 150mg Take 1 [facility] 150 mg 0-08 capsule by [facility] of capsule 00:00: 05:59 mouth in [place] 00 :00 the Medical morning Branch and 1 capsule at noon and 1 capsule in the evening. Do all this for 90 days. amitriptyli 2021-08- No [id number] 25mg Take 1 [facility] ne 25 mg 0-08 tablet by [facility]y o f tablet 00:00: 05:59 mouth at [place] 00 :00 bedtime Medical for 90 Branch days. tiZANidine 2021-08- No [id number] 4mg Take 1 [facility] 4 mg 0-08 capsule by [facility] of capsule 00:00: 05:59 mouth in [place] 00 :00 the Medical morning Branch and 1 capsule at noon and 1 capsule in the evening. Do all this for 90 days. docusate 2021-08- No [id number] 100mg Take 1 [facility] (COLACE) 0-08 capsule by [facility]y of 100 mg 00:00: 05:59 mouth in [place] capsule 00 :00 the Medical morning Branch for 90 days. pregabalin 2021-08- No [id number] 150mg Take 1 [facility] 150 mg 0-08 capsule by [facility] of capsule 00:00: 05:59 mouth in [place] 00 :00 the Medical morning Branch and 1 capsule at noon and 1 capsule in the evening. Do all this for 90 days. amitriptyli 2021-08- No [id number] 25mg Take 1 [facility] ne 25 mg 0-08 tablet by ity o f tablet 00:00: 05:59 mouth at [place] 00 :00 bedtime Medical for 90 Branch days. tiZANidine 2021-08- No [id number] 4mg Take 1 [facility] 4 mg 0-08 capsule by [facility] of capsule 00:00: 05:59 mouth in [place] 00 :00 the Medical morning Branch and 1 capsule at noon and 1 capsule in the evening. Do all this for 90 days. docusate 2021-08- No [id number] 100mg Take 1 [facility] (COLACE) 0-08 capsule by [facility]y of 100 mg 00:00: 05:59 mouth in [place] capsule 00 :00 the Medical morning Branch for 90 days. pregabalin 2021-08- No [id number] 150mg Take 1 [facility] 150 mg 0-08 capsule by [facility] of capsule 00:00: 05:59 mouth in [place] 00 :00 the Medical morning Branch and 1 capsule at noon and 1 capsule in the evening. Do all this for 90 days. amitriptyli 2021-08- No [id number] 25mg Take 1 [facility] ne 25 mg 008 tablet by ity o f tablet 00:00: 05:59 mouth at [place] 00 :00 bedtime Medical for 90 Branch days. tiZANidine 2021-08- No [id number] 4mg Take 1 [facility] 4 mg 008 capsule by [facility] of capsule 00:00: 05:59 mouth in [place] 00 :00 the Medical morning Branch and 1 capsule at noon and 1 capsule in the evening. Do all this for 90 days. docusate 2021-08- No [id number] 100mg Take 1 [facility] (COLACE) 008-14 capsule by [facility]y of 100 mg 00:00: 05:59 mouth in [place] capsule 00 :00 the [facility] morning Branch for 90 days. pregabalin 2021-08- No [id number] 150mg Take 1 [facility] 150 mg 008-14 capsule by [facility]y of capsule 00:00: 05:59 mouth in [place] 00 :00 the Medical morning Branch and 1 capsule at noon and 1 capsule in the evening. Do all this for 90 days. amitriptyli 2021-08- No [id number] 25mg Take 1 [facility] ne 25 mg 008 tablet by ity o f tablet 00:00: 05:59 mouth at [place] 00 :00 bedtime Medical for 90 Branch days. tiZANidine 2021-08- No [id number] 4mg Take 1 [facility] 4 mg 0-08 capsule by [facility]y of capsule 00:00: 05:59 mouth in [place] 00 :00 the Medical morning Branch and 1 capsule at noon and 1 capsule in the evening. Do all this for 90 days. pregabalin 2021-08- No [id number] 150mg Take 1 [facility] 150 mg 0-09 -08 capsule by [facility]y of capsule 00:00: 05:59 mouth in [place] 00 :00 the Medical morning Branch and 1 capsule at noon and 1 capsule in the evening. Do all this for 90 days. amitriptyli 2021-08- No [id number] 25mg Take 1 [facility] ne 25 mg 0-09 -08 tablet by ity o f tablet 00:00: 05:59 mouth at [place] 00 :00 bedtime Medical for 90 Branch days. pregabalin 2021-08- No [id number] 150mg Take 1 [facility] 150 mg 0-09 -08 capsule by [facility] of capsule 00:00: 05:59 mouth in [place] 00 :00 the Medical morning Branch and 1 capsule at noon and 1 capsule in the evening. Do all this for 90 days. amitriptyli 2021-08- No [id number] 25mg Take 1 [facility] ne 25 mg 0-04 07-08 tablet by ity o f tablet 00:00: 05:59 mouth at [place] 00 :00 bedtime Medical for 90 Branch days. pregabalin 2021-08- No [id number] 150mg Take 1 [facility] 150 mg 0-04 07-08 capsule by [facility] of capsule 00:00: 05:59 mouth in [place] 00 :00 the Medical morning Branch and 1 capsule at noon and 1 capsule in the evening. Do all this for 90 days. amitriptyli 2021-08- No [id number] 25mg Take 1 [facility] ne 25 mg 0-04 07-08 tablet by ity o f tablet 00:00: 05:59 mouth at [place] 00 :00 bedtime Medical for 90 Branch days. pregabalin 2021-08- No [id number] 150mg Take 1 [facility] 150 mg 0-09 -08 capsule by [facility]y of capsule 00:00: 05:59 mouth in [place] 00 :00 the Medical morning Branch and 1 capsule at noon and 1 capsule in the evening. Do all this for 90 days. amitriptyli 2021-08- No [id number] 25mg Take 1 [facility] ne 25 mg 0-09 -08 tablet by ity o f tablet 00:00: 05:59 mouth at [place] 00 :00 bedtime Medical for 90 Branch days. pregabalin 2021-08- No [id number] 150mg Take 1 [facility] 150 mg 0-09 01-08 capsule by [facility]y of capsule 00:00: 05:59 mouth in [place] 00 :00 the Medical morning Branch and 1 capsule at noon and 1 capsule in the evening. Do all this for 90 days. amitriptyli 2021-08- No [id number] 25mg Take 1 [facility] ne 25 mg 0-09 -08 tablet by ity o f tablet 00:00: 05:59 mouth at [place] 00 :00 bedtime Medical for 90 Branch days. pregabalin 2021-08- No [id number] 150mg Take 1 [facility] 150 mg 0-09 -08 capsule by ity of capsule 00:00: 05:59 mouth in [place] 00 :00 the Medical morning Branch and 1 capsule at noon and 1 capsule in the evening. Do all this for 90 days. amitriptyli 2021-08- No [id number] 25mg Take 1 [facility] ne 25 mg 0-04 07-08 tablet by ity o f tablet 00:00: 05:59 mouth at [place] 00 :00 bedtime Medical for 90 Branch days. pregabalin 2021-08- No [id number] 150mg Take 1 [facility] 150 mg 0-09 -08 capsule by ity of capsule 00:00: 05:59 mouth in [place] 00 :00 the Medical morning Branch and 1 capsule at noon and 1 capsule in the evening. Do all this for 90 days. amitriptyli 2021-08- No [id number] 25mg Take 1 [facility] ne 25 mg 0-09 -08 tablet by ity o f tablet 00:00: 05:59 mouth at [place] 00 :00 bedtime Medical for 90 Branch days. pregabalin 2021-08- No [id number] 150mg Take 1 [facility] 150 mg 0-09 01-08 capsule by ity of capsule 00:00: 05:59 mouth in [place] 00 :00 the Medical morning Branch and 1 capsule at noon and 1 capsule in the evening. Do all this for 90 days. amitriptyli 2021-08- No [id number] 25mg Take 1 [facility] ne 25 mg 0-09 01-08 tablet by ity o f tablet 00:00: 05:59 mouth at [place] 00 :00 bedtime Medical for 90 Branch days. pregabalin 2021-08- No [id number] 150mg Take 1 [facility] 150 mg 0-09 -08 capsule by ity of capsule 00:00: 05:59 mouth in [place] 00 :00 the Medical morning Branch and 1 capsule at noon and 1 capsule in the evening. Do all this for 90 days. amitriptyli 2021-08- No [id number] 25mg Take 1 [facility] ne 25 mg 0-04 07-08 tablet by ity o f tablet 00:00: 05:59 mouth at [place] 00 :00 bedtime Medical for 90 Branch days. pregabalin 2021-08- No [id number] 150mg Take 1 [facility] 150 mg 0-04 07-08 capsule by ity of capsule 00:00: 05:59 mouth in [place] 00 :00 the Medical morning Branch and 1 capsule at noon and 1 capsule in the evening. Do all this for 90 days. amitriptyli 2021-08- No [id number] 25mg Take 1 [facility] ne 25 mg 0-04 07-08 tablet by ity o f tablet 00:00: 05:59 mouth at [place] 00 :00 bedtime Medical for 90 Branch days. pregabalin 2021-08- No [id number] 150mg Take 1 [facility] 150 mg 0-04 07-08 capsule by ity of capsule 00:00: 05:59 mouth in [place] 00 :00 the Medical morning Branch and 1 capsule at noon and 1 capsule in the evening. Do all this for 90 days. amitriptyli 2021-08- No [id number] 25mg Take 1 [facility] ne 25 mg 0-04 07-08 tablet by ity o f tablet 00:00: 05:59 mouth at [place] 00 :00 bedtime Medical for 90 Branch days. pregabalin 2021-08- No [id number] 150mg Take 1 [facility] 150 mg 0-04 07-08 capsule by ity of capsule 00:00: 05:59 mouth in [place] 00 :00 the Medical morning Branch and 1 capsule at noon and 1 capsule in the evening. Do all this for 90 days. amitriptyli 2021-08- No [id number] 25mg Take 1 [facility] ne 25 mg 0-09 -08 tablet by ity o f tablet 00:00: 05:59 mouth at [place] 00 :00 bedtime Medical for 90 Branch days. pregabalin 2021-08- No [id number] 150mg Take 1 [facility] 150 mg 0-08 capsule by ity of capsule 00:00: 05:59 mouth in [place] 00 :00 the Medical morning Branch and 1 capsule at noon and 1 capsule in the evening. Do all this for 90 days. amitriptyli 2021-08- No [id number] 25mg Take 1 [facility] ne 25 mg 0-08 tablet by ity o f tablet 00:00: 05:59 mouth at [place] 00 :00 bedtime Medical for 90 Branch days. pregabalin 2021-08- No [id number] 150mg Take 1 [facility] 150 mg 008-14 capsule by ity of capsule 00:00: 05:59 mouth in [place] 00 :00 the Medical morning Branch and 1 capsule at noon and 1 capsule in the evening. Do all this for 90 days. amitriptyli 2021-08- No [id number] 25mg Take 1 [facility] ne 25 mg 008 tablet by ity o f tablet 00:00: 05:59 mouth at [place] 00 :00 bedtime Medical for 90 Branch days. pregabalin 2021-08- No [id number] 150mg Take 1 [facility] 150 mg 008-14 capsule by ity of capsule 00:00: 05:59 mouth in [place] 00 :00 the Medical morning Branch and 1 capsule at noon and 1 capsule in the evening. Do all this for 90 days. amitriptyli 2021-08- No [id number] 25mg Take 1 [facility] ne 25 mg 0-08 tablet by ity o f tablet 00:00: 05:59 mouth at [place] 00 :00 bedtime Medical for 90 Branch days. pregabalin 2021-08- No [id number] 150mg Take 1 [facility] 150 mg 0-08 capsule by ity of capsule 00:00: 05:59 mouth in [place] 00 :00 the Medical morning Branch and 1 capsule at noon and 1 capsule in the evening. Do all this for 90 days. amitriptyli 2021-08- No [id number] 25mg Take 1 [facility] ne 25 mg 008-14 tablet by ity o f tablet 00:00: 05:59 mouth at [place] 00 :00 bedtime Medical for 90 Branch days. tiZANidine 2021-08- No [id number] 4mg Take 1 [facility] 4 mg 008-14 capsule by ity of capsule 00:00: 05:59 mouth in [place] 00 :00 the Medical morning Branch and 1 capsule at noon and 1 capsule in the evening. Do all this for 90 days. docusate 2021-08- No [id number] 100mg Take 1 [facility] (COLACE) 008-14 capsule by ity of 100 mg 00:00: 05:59 mouth in [place] capsule 00 :00 the [facility] for 90 days. docusate 2021-08- No [id number] 100mg Take 1 [facility] (COLACE) 007-12 capsule by ity of 100 mg 00:00: 00:00 mouth in [place] capsule 00 :00 the [facility] for 90 days. tiZANidine 2021-08- No [id number] 4mg Take 1 [facility] 4 mg 07-12 capsule by ity of capsule 00:00: 00:00 mouth in [place] 00 :00 the [facility] morning Branch and 1 capsule at noon and 1 capsule in the evening. Do all this for 90 days. docusate 2021-08- No [id number] 100mg Take 1 [facility] (COLACE) 007-12 capsule by ity of 100 mg 00:00: 00:00 mouth in [place] capsule 00 :00 the [facility] for 90 days. tiZANidine 2021-08- No [id number] 4mg Take 1 [facility] 4 mg 007-12 capsule by ity of capsule 00:00: 00:00 mouth in [place] 00 :00 the [facility] morning Branch and 1 capsule at noon and 1 capsule in the evening. Do all this for 90 days. docusate 2021-08- No [id number] 100mg Take 1 [facility] (COLACE) 007-12 capsule by ity of 100 mg 00:00: 00:00 mouth in [place] capsule 00 :00 the [facility] for 90 days. tiZANidine 2021-08- No [id number] 4mg Take 1 [facility] 4 mg 007-12 capsule by ity of capsule 00:00: 00:00 mouth in [place] 00 :00 the Medical morning Branch and 1 capsule at noon and 1 capsule in the evening. Do all this for 90 days. docusate 2021-08- No [id number] 100mg Take 1 [facility] (COLACE) 0- capsule by ity of 100 mg 00:00: 00:00 mouth in [place] capsule 00 :00 the [facility] for 90 days. tiZANidine 2021-08- No [id number] 4mg Take 1 [facility] 4 mg 007-12 capsule by ity of capsule 00:00: 00:00 mouth in [place] 00 :00 the [facility] Branch and 1 capsule at noon and 1 capsule in the evening. Do all this for 90 days. docusate 2021-08- No [id number] 100mg Take 1 [facility] (COLACE) 007-12 capsule by ity of 100 mg 00:00: 00:00 mouth in [place] capsule 00 :00 the [facility] for 90 days. magnesium 2021-08- No [id number] 30mL Take 30 mL [facility] hydroxide 006-15 by mouth 2 ity of 400 mg/5 mL 00:00: 05:59 (two) [place] suspension 00 :00 times Medical daily as Branch needed for Constipati on for up to 30 days. magnesium 2021-08- No [id number] 30mL Take 30 mL [facility] hydroxide 006-15 by mouth 2 ity of 400 mg/5 mL 00:00: 05:59 (two) [place] suspension 00 :00 times Medical daily as Branch needed for Constipati on for up to 30 days. magnesium 2021-08- No [id number] 30mL Take 30 mL [facility] hydroxide 006-15 by mouth 2 ity of 400 mg/5 mL 00:00: 05:59 (two) [place] suspension 00 :00 times Medical daily as Branch needed for Constipati on for up to 30 days. magnesium 2021-08- No [id number] 30mL Take 30 mL [facility] hydroxide 006-15 by mouth 2 ity of 400 mg/5 mL 00:00: 05:59 (two) [place] suspension 00 :00 times Medical daily as Branch needed for Constipati on for up to 30 days. magnesium 2021-08- No [id number] 30mL Take 30 mL [facility] hydroxide 006-15 by mouth 2 ity of 400 mg/5 mL 00:00: 05:59 (two) [place] suspension 00 :00 times Medical daily as Branch needed for Constipati on for up to 30 days. magnesium 2021-08- No [id number] 30mL Take 30 mL [facility] hydroxide 006-15 by mouth 2 ity of 400 mg/5 mL 00:00: 05:59 (two) [place] suspension 00 :00 times Medical daily as Branch needed for Constipati on for up to 30 days. magnesium 2021-08- No [id number] 30mL Take 30 mL [facility] hydroxide 006-15 by mouth 2 ity of 400 mg/5 mL 00:00: 05:59 (two) [place] suspension 00 :00 times Medical daily as Branch needed for Constipati on for up to 30 days. magnesium 2021-08- No [id number] 30mL Take 30 mL [facility] hydroxide 006-15 by mouth 2 ity of 400 mg/5 mL 00:00: 05:59 (two) [place] suspension 00 :00 times Medical daily as Branch needed for Constipati on for up to 30 days. magnesium 2021-08- No [id number] 30mL Take 30 mL [facility] hydroxide 006-15 by mouth 2 ity of 400 mg/5 mL 00:00: 05:59 (two) [place] suspension 00 :00 times Medical daily as Branch needed for Constipati on for up to 30 days. magnesium 2021-08- No [id number] 30mL Take 30 mL [facility] hydroxide 006-15 by mouth 2 ity of 400 mg/5 mL 00:00: 05:59 (two) [place] suspension 00 :00 times Medical daily as Branch needed for Constipati on for up to 30 days. magnesium 2021-08- No [id number] 30mL Take 30 mL [facility] hydroxide 006-15 by mouth 2 ity of 400 mg/5 mL 00:00: 05:59 (two) [place] suspension 00 :00 times Medical daily as Branch needed for Constipati on for up to 30 days. magnesium 2021-08- No [id number] 30mL Take 30 mL [facility] hydroxide 006-15 by mouth 2 ity of 400 mg/5 mL 00:00: 05:59 (two) [place] suspension 00 :00 times Medical daily as Branch needed for Constipati on for up to 30 days. magnesium 2021-08- No [id number] 30mL Take 30 mL [facility] hydroxide 006-15 by mouth 2 ity of 400 mg/5 mL 00:00: 05:59 (two) [place] suspension 00 :00 times Medical daily as Branch needed for Constipati on for up to 30 days. magnesium 2021-08- No [id number] 30mL Take 30 mL [facility] hydroxide 006-15 by mouth 2 ity of 400 mg/5 mL 00:00: 05:59 (two) [place] suspension 00 :00 times Medical daily as Branch needed for Constipati on for up to 30 days. magnesium 2021-08- No [id number] 30mL Take 30 mL [facility] hydroxide 006-15 by mouth 2 ity of 400 mg/5 mL 00:00: 05:59 (two) [place] suspension 00 :00 times Medical daily as Branch needed for Constipati on for up to 30 days. magnesium 2021-08- No [id number] 30mL Take 30 mL [facility] hydroxide 006-15 by mouth 2 ity of 400 mg/5 mL 00:00: 05:59 (two) [place] suspension 00 :00 times Medical daily as Branch needed for Constipati on for up to 30 days. magnesium 2021-08- No [id number] 30mL Take 30 mL [facility] hydroxide 006-15 by mouth 2 ity of 400 mg/5 mL 00:00: 05:59 (two) [place] suspension 00 :00 times Medical daily as Branch needed for Constipati on for up to 30 days. magnesium 2021-08- No [id number] 30mL Take 30 mL [facility] hydroxide 006-15 by mouth 2 ity of 400 mg/5 mL 00:00: 05:59 (two) [place] suspension 00 :00 times Medical daily as Branch needed for Constipati on for up to 30 days. magnesium 2021-08- No [id number] 30mL Take 30 mL [facility] hydroxide 0-04 17- by mouth 2 ity of 400 mg/5 mL 00:00: 05:59 (two) [place] suspension 00 :00 times Medical daily as Branch needed for Constipati on for up to 30 days. acetaminoph 2021-08 No [id number] 1000mg Take 2 [facility] en 500 mg [...] Indication s: acute pain dexAMETHaso 2021-08 No [id number] Take 4 [facility] ne 1 mg 0-09 10-17 tablets by ity o f tablet 00:00: 04:59 mouth [place] 00 :00 every 6 Medical (six) Branch hours for 1 day, THEN 4 tablets every 12 (twelve) hours for 2 days, THEN 2 tablets every 12 (twelve) hours for 2 days, THEN 1 tablet every 12 (twelve) hours for 2 days. omeprazole 2021-08 No [id number] 40mg Take 1 [facility] 40 mg 0-09 10-17 capsule by ity of capsule 00:00: 04:59 mouth in [place] 00 :00 the Medical morning Branch for 7 days. acetaminoph 2021-08 No [id number] 1000mg Take 2 [facility] en 500 mg [...] Indication s: acute pain dexAMETHaso 2021-08- No [id number] Take 4 [facility] ne 1 mg 0-09 10-17 tablets by ity o f tablet 00:00: 04:59 mouth [place] 00 :00 every 6 Medical (six) Branch hours for 1 day, THEN 4 tablets every 12 (twelve) hours for 2 days, THEN 2 tablets every 12 (twelve) hours for 2 days, THEN 1 tablet every 12 (twelve) hours for 2 days. omeprazole 2021-08- No [id number] 40mg Take 1 [facility] 40 mg 0-09 10-17 capsule by ity of capsule 00:00: 04:59 mouth in [place] 00 :00 the Medical morning Branch for 7 days. acetaminoph 2021-08 No [id number] 1000mg Take 2 [facility] en 500 mg [...] Indication s: acute pain dexAMETHaso 2021-08- No [id number] Take 4 [facility] ne 1 mg 0-09 10-17 tablets by ity o f tablet 00:00: 04:59 mouth [place] 00 :00 every 6 Medical (six) Branch hours for 1 day, THEN 4 tablets every 12 (twelve) hours for 2 days, THEN 2 tablets every 12 (twelve) hours for 2 days, THEN 1 tablet every 12 (twelve) hours for 2 days. omeprazole 2021-08- No [id number] 40mg Take 1 [facility] 40 mg 0-09 10-17 capsule by ity of capsule 00:00: 04:59 mouth in [place] 00 :00 the Medical morning Branch for 7 days. acetaminoph 2021-08- No [id number] 1000mg Take 2 [facility] en 500 mg [...] Indication s: acute pain dexAMETHaso 2021-08- No [id number] Take 4 [facility] ne 1 mg 0-09 10-17 tablets by ity o f tablet 00:00: 04:59 mouth [place] 00 :00 every 6 Medical (six) Branch hours for 1 day, THEN 4 tablets every 12 (twelve) hours for 2 days, THEN 2 tablets every 12 (twelve) hours for 2 days, THEN 1 tablet every 12 (twelve) hours for 2 days. omeprazole 2021-08 No [id number] 40mg Take 1 [facility] 40 mg 0-09 10-17 capsule by ity of capsule 00:00: 04:59 mouth in [place] 00 :00 the Medical morning Branch for 7 days. acetaminoph 2021-08- No [id number] 1000mg Take 2 [facility] en 500 mg [...] Indication s: acute pain dexAMETHaso 2021-08- No [id number] Take 4 [facility] ne 1 mg 0-09 10-17 tablets by ity o f tablet 00:00: 04:59 mouth [place] 00 :00 every 6 Medical (six) Branch hours for 1 day, THEN 4 tablets every 12 (twelve) hours for 2 days, THEN 2 tablets every 12 (twelve) hours for 2 days, THEN 1 tablet every 12 (twelve) hours for 2 days. omeprazole 2021-08- No [id number] 40mg Take 1 [facility] 40 mg 0-09 [...] on Mon Medical 1,000 mg 05/13/22 at [facility] h 1800, Until Discontinu ed, Routine pregabalin [...] Discontinu ed, Routine, Pain (scale 4-6) lidocaine 2021-08- No 10mL 10 mL, Unive rs 1% [...] on Mon05/13/22 at 0730, Last dose on Mon05/16/22 at 0000, 1 mL docusate 2021-08 Yes 100mg 100 mg, Unive rs (COLACE) 0-07 Oral, BID, ity o f capsule 100 01:00: First dose [place] mg 00 on [facility] Medical 05/12/22 at [place] 1999, Until Discontinu ed, Routine docusate 2021-08 Yes 100mg 100 mg, Unive rs (COLACE) 0-07 Oral, BID, ity o f capsule 100 01:00: First dose [place] mg 00 on [facility] Medical 05/12/22 at [place] 1999, Until Discontinu ed, Routine magnesium 2021-08 No 30mL 30 mL, Unive rs hydroxide 0-06 10-06 Oral, ity of (MILK OF 14:45: 14:17 ONCE, 1 [place] MAGNESIA) 00 :00 dose, On Medica l 400 mg/5 mL [facility] suspension 05/12/22 at 30 mL 0945, Routine magnesium 2021-08 No 30mL 30 mL, Unive rs hydroxide 0-06 10-06 Oral, ity of (MILK OF 14:45: 14:17 ONCE, 1 [place] MAGNESIA) 00 :00 dose, On Medica l 400 mg/5 mL [facility] suspension 05/12/22 at 30 mL 0945, Routine magnesium 2021-08 Yes 30mL 30 mL, Univer s hydroxide 0-06 Oral, ity of (MILK OF 13:52: BIDPRN, [place] MAGNESIA) 17 Starting Medica l 400 mg/5 mL on [facility] suspension 05/12/22 at 30 mL 0852, Until Discontinu ed, Routine, Constipati on magnesium 2021-08 Yes 30mL 30 mL, Univer s hydroxide 0-06 Oral, ity of (MILK OF 13:52: BIDPRN, [place] MAGNESIA) 17 Starting Medica l 400 mg/5 mL on [facility] suspension 05/12/22 at 30 mL 0852, Until Discontinu ed, Routine, Constipati on levothyroxi 2021-08 Yes 137ug 137 mcg, U nivers ne 0-06 Oral, ity of (SYNTHROID) 11:00: QAM-0600, [place] tablet 137 00 First dose Med ical mcg on [facility] Branch 05/12/22 at 0600, Until Discontinu ed, Routine levothyroxi 2021-08 Yes 137ug 137 mcg, U nivers ne 0-06 Oral, ity of (SYNTHROID) 11:00: QAM-0600, [place] tablet 137 00 First dose Med ical mcg on [place] Branch 05/12/22 at 0600, Until Discontinu ed, Routine enoxaparin 2021-08 Yes 40mg 40 mg, Unive rs (LOVENOX) 0-06 Subcutaneo ity of injection 09:00: us, Q24H, [place] 40 mg 00 First dose Medical on [facility] Branch 05/12/22 at 0400, Until Discontinu ed, Routine enoxaparin 2021-08 Yes 40mg 40 mg, Unive rs (LOVENOX) 0-06 Subcutaneo ity of injection 09:00: us, Q24H, [place] 40 mg 00 First dose Medical on [facility] Branch 05/12/22 at 0400, Until Discontinu [...] at 2130, Until Discontinu ed omeprazole 2021-08 No 40mg 40 mg, Univ ers (PRILOSEC) 0-06 [...] on Mon05/11/22 at 2100, Last dose on Mon05/14/22 at 1300, Administer over 30 Minutes, 100 [...] 00 First dose Medical mcg/dose on Mon inhalation 05/11/22 at disk 1 [place] 1999, Until Discontinu ed, Routine pregabalin 2021-08 Yes 150mg 150 mg, Uni vers (LYRICA) 0-06 Oral, BID, ity o f capsule 150 01:00: First dose [place] mg 00 on Mon Medical 05/11/22 at Branch 1999, Until Discontinu ed, Routine sennosides 2021-08 Yes 8.6mg 8.6 mg, Uni vers (SENOKOT) 0-06 Oral, BID, ity of tablet 8.6 01:00: First dose [place] mg 00 on [facility] 05/11/22 at [place] 1999, Until Discontinu ed, Routine Fluticasone 2021-08 Yes 1{puff} 1 Puff, Univers -Salmeterol 0-06 Inhalation it y of (ADVAIR) 01:00: , Q12H, [place] 500-50 00 First dose Medical mcg/dose on Mon [place] inhalation 05/11/22 at disk 1 [place] 1999, Until Discontinu ed, Routine pregabalin 2021-08- No 150mg 150 mg, Un claudia (LYRICA) 0- 10-07 Oral, BID, ity of capsule 150 01:00: 18:25 First dose [place] mg 00 :39 on [facility] 05/11/22 at [place] 1999, Until Discontinu ed, Routine docusate 2021-08- No 100mg 100 mg, Univ ers (COLACE) 0-06 10-06 Oral, BID, ity of capsule 100 01:00: 14:02 First dose [place] mg 00 :23 on [facility] 05/11/22 at [place] 1999, Until Discontinu ed, Routine docusate 2021-08- No 100mg 100 mg, Univ ers (COLACE) 0-06 10-06 Oral, BID, ity of capsule 100 01:00: 14:02 First dose [place] mg 00 :23 on [facility] 05/11/22 at [place] 1999, Until Discontinu ed, Routine acetaminoph 2021-08 No 1000mg 1,000 mg, Univers en ADULT 0- 10-06 IV ity of (OFIRMEV) 23:00: 17:20 Infusion, [place] injection 00 :00 at 400 Medical 1,000 mg mL/hr [place] Administer over 15 Minutes, Q6H, 4 doses, First dose on Mon05/11/22 at 1800, Last dose on Mon05/12/22 at 1200, Routine
Indicatio n: Perioperat mayte Patient acetaminoph 2021-08- No 1000mg 1,000 mg, Univers en ADULT 0- 10-06 IV ity of (OFIRMEV) 23:00: 17:20 [...] 1415, Until Discontinu ed, Routine, PACU HYDROcodone 2021-08- No 1{tbl} 1 tablet, Univers -acetaminop 0-05 10-05 Oral, ity of hen (NORCO 19:15: 20:15 ONCE, 1 [place] 5) 5-325 mg 00 :00 dose, On Medi [place] tablet 1 Mon Branch tablet 05/11/22 at 1415, Routine, PACU HYDROcodone 2021-08- No 1{tbl} 1 tablet, Univers -acetaminop 0-05 10-05 Oral, ity of hen (NORCO 19:15: 20:15 ONCE, 1 [place] 5) 5-325 mg 00 :00 dose, On Medi benjie tablet 1 Mon Branch tablet 05/11/22 at 1415, Routine, PACU FENTanyl PF 2021-08- No 25ug 25 mcg, Un claudia (SUBLIMAZE [...] Until Discontinu ed, Routine, Pain (scale 7-10)<b 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 Restricted medication : ROSELYN DOSS oxyCODONE [...] PRN - SEE [place] mL 10 [facility], Branch Starting on Mon05/11/22 at 1353, Until [...] PRN - SEE [place] mL 10 [facility], Branch Starting on Mon05/11/22 at 1353, Until Discontinu ed, 10 mL vancomycin 2021-08- No PRN, Univer s (VANCOCIN) 0-05 10-05 Starting ity of 2 g in 18:20: 19:40 on Mon [place] sodium 00 :07 05/11/22 at Medical chloride 1320, Branch 0.9 % Until Mon irrigation 05/11/22 at 1440, 1,000 mL, Intra-op sodium 2021-08- No PRN, Univers chloride 0-05 10-05 Starting ity of 0.9 % 18:19: 19:40 on Mon [place] irrigation 00 :07 05/11/22 at Med ical solution 1319, Branch Until Mon05/11/22 at 1440, Intra-op methylPREDN 2021-08- No PRN, Unive rs ISolone 0-05 10-05 Starting ity of acetate 18:19: 19:40 on Mon (DEPO-MEDRO 00 :07 05/11/22 at Co dical L) 1319, Branch injection Until Mon05/11/22 at 1440, Routine, Intra-op bupivacaine 2021-08- No PRN, Unive rs liposome 0-05 10-05 Starting ity of (PF) 18:18: 19:40 on Mon (EXPAREL 00 :07 05/11/22 at Medic al (PF)) 1.3 % 1318, Branch (13.3 Until Wed mg/mL) 05/11/22 at injection 1440, Routine, Intra-op bupivacaine 2021-08- No PRN, Unive rs (preserv 0-05 10-05 Starting ity of free) 0.5% 18:18: 19:40 on Mon (SENSORCAIN 00 :07 05/11/22 at Co dical E [facility]) 0.5 1318, Branch % (5 mg/mL) Until Wed injection 05/11/22 at 1440, Routine, Intra-op lidocaine-e 2021-08- No PRN, Unive rs pinephrine 0-05 10-05 Starting ity of (XYLOCAINE 14:59: 19:40 on Mon WITH 00 :07 05/11/22 at [facility] EPINEPHRINE 0959, [place] ) 0.5 Until Mon %-1:200,000 05/11/22 at injection 1440, Routine, Intra-op thrombin 2021-08- No PRN, Univers topical 0-05 10-05 Starting ity of solution 14:59: 19:40 on Mon 00 :07 05/11/22 at Medical 0959, Branch [...] 49 :00 times Medical daily. Branch pregabalin 2021-08 75mg Take 75 mg Univers 75 mg [...] Branch hours as needed. tretinoin 2021-08 Yes [id number] Apply to Univers 0.025 % 0-03 affected ity of cream 00:00: area(s) at [place] 00 bedtime. Medical Branch tretinoin 2021-08 Yes [id number] Apply to Univers 0.025 % 0-03 affected ity of cream 00:00: area(s) at [place] 00 bedtime. Medical Branch tretinoin 2021-08 Yes [id number] Apply to Univers 0.025 % 0-03 affected ity of cream 00:00: area(s) at [place] 00 bedtime. Medical Branch tretinoin 2021-08 Yes [id number] Apply to Univers 0.025 % 0-03 affected ity of cream 00:00: area(s) at [place] 00 bedtime. Medical Branch tretinoin 2021-08 Yes [id number] Apply to Univers 0.025 % 0-03 affected ity of cream 00:00: area(s) at [place] 00 bedtime. Medical Branch tretinoin 2021-08 Yes [id number] Apply to Univers 0.025 % 0-03 affected ity of cream 00:00: area(s) at [place] 00 bedtime. Medical Branch tretinoin 2021-08 Yes [id number] Apply to Univers 0.025 % 0-03 affected ity of cream 00:00: area(s) at [place] 00 bedtime. Medical Branch tretinoin 2021-08 Yes [id number] Apply to Univers 0.025 % 0-03 affected ity of cream 00:00: area(s) at [place] 00 bedtime. Medical Branch tretinoin 2021-08 Yes [id number] Apply to Univers 0.025 % 0-03 affected ity of cream 00:00: area(s) at [place] 00 bedtime. Medical Branch tretinoin 2021-08 Yes [id number] Apply to Univers 0.025 % 0-03 affected ity of cream 00:00: area(s) at [place] 00 bedtime. Medical Branch tretinoin 2021-08 Yes [id number] Apply to Univers 0.025 % 0-03 affected ity of cream 00:00: area(s) at [place] 00 bedtime. Medical Branch tretinoin 2021-08 Yes [id number] Apply to Univers 0.025 % 0-03 affected ity of cream 00:00: area(s) at [place] 00 bedtime. Medical Branch tretinoin 2021-08 Yes [id number] Apply to Univers 0.025 % 0-03 affected ity of cream 00:00: area(s) at [place] 00 bedtime. Medical Branch tretinoin 2021-08 Yes [id number] Apply to Univers 0.025 % 0-03 affected ity of cream 00:00: area(s) at [place] 00 bedtime. Medical Branch tretinoin 2021-08 Yes [id number] Apply to Univers 0.025 % 0-03 affected ity of cream 00:00: area(s) at [place] 00 bedtime. Medical Branch tretinoin 2021-08 Yes [id number] Apply to Univers 0.025 % 0-03 affected ity of cream 00:00: area(s) at [place] 00 bedtime. Medical Branch tretinoin 2021-08 Yes [id number] Apply to Univers 0.025 % 0-03 affected ity of cream 00:00: area(s) at [place] 00 bedtime. Medical Branch tretinoin 2021-08 Yes [id number] Apply to Univers 0.025 % 0-03 affected ity of cream 00:00: area(s) at [place] 00 bedtime. Medical Branch tretinoin 2021-08 Yes [id number] Apply to Univers 0.025 % 0-03 affected ity of cream 00:00: area(s) at [place] 00 bedtime. Medical Branch tretinoin 2021-08 Yes [id number] Apply to Univers 0.025 % 0-03 affected ity of cream 00:00: area(s) at [place] 00 bedtime. Medical Branch tretinoin 2021-08 Yes [id number] Apply to Univers 0.025 % 0-03 affected ity of cream 00:00: area(s) at [place] 00 bedtime. Medical Branch tretinoin 2021-08 Yes [id number] Apply to Univers 0.025 % 0-03 affected ity of cream 00:00: area(s) at [place] 00 bedtime. Medical Branch tretinoin 2021-08 Yes [id number] Apply to Univers 0.025 % 0-03 affected ity of cream 00:00: area(s) at [place] 00 bedtime. Medical Branch tretinoin 2021-08 Yes [id number] Apply to Univers 0.025 % 0-03 affected ity of cream 00:00: area(s) at [place] 00 bedtime. Medical Branch tretinoin 2021-08 Yes [id number] Apply to Univers 0.025 % 0-03 affected ity of cream 00:00: area(s) at [place] 00 bedtime. Medical Branch tretinoin 2021-08 Yes [id number] Apply to Univers 0.025 % 0-03 affected ity of cream 00:00: area(s) at [place] 00 bedtime. Medical Branch tretinoin 2021-08 Yes [id number] Apply to Univers 0.025 % 0-03 affected ity of cream 00:00: area(s) at [place] 00 bedtime. Medical Branch tretinoin 2021-08 Yes [id number] Apply to Univers 0.025 % 0-03 affected ity of cream 00:00: area(s) at [place] 00 bedtime. Medical Branch tretinoin 2021-08 Yes [id number] Apply to Univers 0.025 % 0-03 affected ity of cream 00:00: area(s) at [place] 00 bedtime. Medical Branch tretinoin 2021-08 Yes [id number] Apply to Univers 0.025 % 0-03 affected ity of cream 00:00: area(s) at [place] 00 bedtime. Medical Branch tretinoin 2021-08 Yes [id number] Apply to Univers 0.025 % 0-03 affected ity of cream 00:00: area(s) at [place] 00 bedtime. Medical Branch tretinoin 2021-08 Yes [id number] Apply to Univers 0.025 % 0-03 affected ity of cream 00:00: area(s) at [place] 00 bedtime. Medical Branch tretinoin 2021-08 Yes [id number] Apply to Univers 0.025 % 0-03 affected ity of cream 00:00: area(s) at [place] 00 bedtime. Medical Branch tretinoin 2021-08 Yes [id number] Apply to Univers 0.025 % 0-03 affected ity of cream 00:00: area(s) at [place] 00 bedtime. Medical Branch tretinoin 2021-08 Yes [id number] Apply to Univers 0.025 % 0-03 affected ity of cream 00:00: area(s) at [place] 00 bedtime. Medical Branch tretinoin 2021-08 Yes [id number] Apply to Univers 0.025 % 0-03 affected ity of cream 00:00: area(s) at [place] 00 bedtime. Medical Branch tretinoin 2021-08 Yes [id number] Apply to Univers 0.025 % 0-03 affected ity of cream 00:00: area(s) at [place] 00 bedtime. Medical Branch tretinoin 2021-08 Yes [id number] Apply to Univers 0.025 % 0-03 affected ity of cream 00:00: area(s) at [place] 00 bedtime. Medical Branch tretinoin 2021-08 Yes [id number] Apply to Univers 0.025 % 0-03 affected ity of cream 00:00: area(s) at [place] 00 bedtime. Medical Branch tretinoin 2021-08 Yes [id number] Apply to Univers 0.025 % 0-03 affected ity of cream 00:00: area(s) at [place] 00 bedtime. Medical Branch tretinoin 2021-08 Yes [id number] Apply to Univers 0.025 % 0-03 affected ity of cream 00:00: area(s) at [place] 00 bedtime. Medical Branch tretinoin 2021-08 Yes [id number] Apply to Univers 0.025 % 0-03 affected ity of cream 00:00: area(s) at [place] 00 bedtime. Medical Branch tretinoin 2021-08 Yes [id number] Apply to Univers 0.025 % 0-03 affected ity of cream 00:00: area(s) at [place] 00 bedtime. Medical Branch tretinoin 2021-08 Yes [id number] Apply to Univers 0.025 % 0-03 affected ity of cream 00:00: area(s) at [place] 00 bedtime. Medical Branch tretinoin 2021-08 Yes [id number] Apply to Univers 0.025 % 0-03 affected ity of cream 00:00: area(s) at [place] 00 bedtime. Medical Branch tretinoin 2021-08 Yes [id number] Apply to Univers 0.025 % 0-03 affected ity of cream 00:00: area(s) at [place] 00 bedtime. Medical Branch tretinoin 2021-08 Yes [id number] Apply to Univers 0.025 % 0-03 affected ity of cream 00:00: area(s) at [place] 00 bedtime. Medical Branch tretinoin 2021-08 Yes [id number] Apply to Univers 0.025 % 0-03 affected ity of cream 00:00: area(s) at [place] 00 bedtime. Medical Branch tretinoin 2021-08 Yes [id number] Apply to Univers 0.025 % 0-03 affected ity of cream 00:00: area(s) at [place] 00 bedtime. Medical Branch tretinoin 2021-08 Yes [id number] Apply to Univers 0.025 % 0-03 affected ity of cream 00:00: area(s) at [place] 00 bedtime. Medical Branch tretinoin 2021-08 Yes [id number] Apply to Univers 0.025 % 0-03 affected ity of cream 00:00: area(s) at [place] 00 bedtime. Medical Branch tretinoin 2021-08 Yes [id number] Apply to Univers 0.025 % 0-03 affected ity of cream 00:00: area(s) at [place] 00 bedtime. Medical Branch tretinoin 2021-08 Yes [id number] Apply to Univers 0.025 % 0-03 affected ity of cream 00:00: area(s) at [place] 00 bedtime. Medical Branch tretinoin 2021-08 Yes [id number] Apply to Univers 0.025 % 0-03 affected ity of cream 00:00: area(s) at [place] 00 bedtime. Medical Branch tretinoin 2021-08 Yes [id number] Apply to Univers 0.025 % 0-03 affected ity of cream 00:00: area(s) at [place] 00 bedtime. Medical Branch tretinoin 2021-08 Yes [id number] Apply to Univers 0.025 % 0-03 affected ity of cream 00:00: area(s) at [place] 00 bedtime. Medical Branch tretinoin 2021-08 Yes [id number] Apply to Univers 0.025 % 0-03 affected ity of cream 00:00: area(s) at [place] 00 bedtime. Medical Branch tretinoin 2021-08 Yes [id number] Apply to Univers 0.025 % 0-03 affected ity of cream 00:00: area(s) at [place] 00 bedtime. Medical Branch tretinoin 2021-08 Yes [id number] Apply to Univers 0.025 % 0-03 affected ity of cream 00:00: area(s) at [place] 00 bedtime. Medical Branch tretinoin 2021-08 Yes [id number] Apply to Univers 0.025 % 0-03 affected ity of cream 00:00: area(s) at [place] 00 bedtime. Medical Branch tretinoin 2021-08 Yes [id number] Apply to Univers 0.025 % 0-03 affected ity of cream 00:00: area(s) at [place] 00 bedtime. Medical Branch tretinoin 2021-08 Yes [id number] Apply to Univers 0.025 % 0-03 affected ity of cream 00:00: area(s) at [place] 00 bedtime. Medical Branch tretinoin 2021-08 Yes [id number] Apply to Univers 0.025 % 0-03 affected ity of cream 00:00: area(s) at [place] 00 bedtime. Medical Branch tretinoin 2021-08 Yes [id number] Apply to Univers 0.025 % 0-03 affected ity of cream 00:00: area(s) at [place] 00 bedtime. Medical Branch tretinoin 2021-08 Yes [id number] Apply to Univers 0.025 % 0-03 affected ity of cream 00:00: area(s) at [place] 00 bedtime. Medical Branch tretinoin 2021-08 Yes [id number] Apply to Univers 0.025 % 0-03 affected ity of cream 00:00: area(s) at [place] 00 bedtime. Medical Branch tretinoin 2021-08 Yes [id number] Apply to Univers 0.025 % 0-03 affected ity of cream 00:00: area(s) at [place] 00 bedtime. Medical Branch tretinoin 2021-08 Yes [id number] Apply to Univers 0.025 % 0-03 affected ity of cream 00:00: area(s) at [place] 00 bedtime. Medical Branch tretinoin 2021-08 Yes [id number] Apply to Univers 0.025 % 0-03 affected ity of cream 00:00: area(s) at [place] 00 bedtime. Medical Branch tretinoin 2021-08 Yes [id number] Apply to Univers 0.025 % 0-03 affected ity of cream 00:00: area(s) at [place] 00 bedtime. Medical Branch tretinoin 2021-08 Yes [id number] Apply to Univers 0.025 % 0-03 affected ity of cream 00:00: area(s) at [place] 00 bedtime. Medical Branch tretinoin 2021-08 Yes [id number] Apply to Univers 0.025 % 0-03 affected ity of cream 00:00: area(s) at [place] 00 bedtime. Medical Branch tretinoin 2021-08 Yes [id number] Apply to Univers 0.025 % 0-03 affected ity of cream 00:00: area(s) at [place] 00 bedtime. Medical Branch tretinoin 2021-08 Yes [id number] Apply to Univers 0.025 % 0-03 affected ity of cream 00:00: area(s) at [place] 00 bedtime. Medical Branch tretinoin 2021-08 Yes [id number] Apply to Univers 0.025 % 0-03 affected ity of cream 00:00: area(s) at [place] 00 bedtime. Medical Branch tretinoin 2021-08 Yes [id number] Apply to Univers 0.025 % 0-03 affected ity of cream 00:00: area(s) at [place] 00 bedtime. Medical Branch tretinoin 2021-08 Yes [id number] Apply to Univers 0.025 % 0-03 affected ity of cream 00:00: area(s) at [place] 00 bedtime. Medical Branch tretinoin 2021-08 Yes [id number] Apply to Univers 0.025 % 0-03 affected ity of cream 00:00: area(s) at [place] 00 bedtime. Medical Branch tretinoin 2021-08 Yes [id number] Apply to Univers 0.025 % 0-03 affected ity of cream 00:00: area(s) at [place] 00 bedtime. Medical Branch tretinoin 2021-08 Yes [id number] Apply to Univers 0.025 % 0-03 affected ity of cream 00:00: area(s) at [place] 00 bedtime. Medical Branch tretinoin 2021-08 Yes [id number] Apply to Univers 0.025 % 0-03 affected ity of cream 00:00: area(s) at [place] 00 bedtime. Medical Branch tretinoin 2021-08 Yes [id number] Apply to Univers 0.025 % 0-03 affected ity of cream 00:00: area(s) at [place] 00 bedtime. Medical Branch tretinoin 2021-08 Yes [id number] Apply to Univers 0.025 % 0-03 affected ity of cream 00:00: area(s) at [place] 00 bedtime. Medical Branch tretinoin 2021-08 Yes [id number] Apply to Univers 0.025 % 0-03 affected ity of cream 00:00: area(s) at [place] 00 bedtime. Medical Branch tretinoin 2021-08 Yes [id number] Apply to Univers 0.025 % 0-03 affected ity of cream 00:00: area(s) at [place] 00 bedtime. Medical Branch tretinoin 2021-08 Yes [id number] Apply to Univers 0.025 % 0-03 affected ity of cream 00:00: area(s) at [place] 00 bedtime. Medical Branch tretinoin 2021-08 Yes [id number] Apply to Univers 0.025 % 0-03 affected ity of cream 00:00: area(s) at [place] 00 bedtime. Medical Branch tretinoin 2021-08 Yes [id number] Apply to Univers 0.025 % 0-03 affected ity of cream 00:00: area(s) at [place] 00 bedtime. Medical Branch tretinoin 2021-08 Yes [id number] Apply to Univers 0.025 % 0-03 affected ity of cream 00:00: area(s) at [place] 00 bedtime. Medical Branch tretinoin 2021-08 Yes [id number] Apply to Univers 0.025 % 0-03 affected ity of cream 00:00: area(s) at [place] 00 bedtime. Medical Branch tretinoin 2021-08 Yes [id number] Apply to Univers 0.025 % 0-03 affected ity of cream 00:00: area(s) at [place] 00 bedtime. Medical Branch tretinoin 2021-08 Yes [id number] Apply to Univers 0.025 % 0-03 affected ity of cream 00:00: area(s) at [place] 00 bedtime. Medical Branch tretinoin 2021-08 Yes [id number] Apply to Univers 0.025 % 0-03 affected ity of cream 00:00: area(s) at [place] 00 bedtime. Medical Branch tretinoin 2021-08 Yes [id number] Apply to Univers 0.025 % 0-03 affected ity of cream 00:00: area(s) at [place] 00 bedtime. Medical Branch tretinoin 2021-08 Yes [id number] Apply to Univers 0.025 % 0-03 affected ity of cream 00:00: area(s) at [place] 00 bedtime. Medical Branch tretinoin 2021-08 Yes [id number] Apply to Univers 0.025 % 0-03 affected ity of cream 00:00: area(s) at [place] 00 bedtime. Medical Branch pregabalin 2021-0 Yes 75mg Take 75 mg U nivers 75 mg 9-30 by mouth 2 ity of capsule 15:16: (two) [place] 08 times Medical daily. Branch FLUTICASONE 2021-0 Yes 50ug Use 50 mcg Univers PROPIONATE 9-30 in each ity of NASAL 15:16: nostril [place] 08 once daily Medical as needed Branch for Other (allergies ). ALBUTEROL 2021-0 Yes 8.5mg Inhale 8.5 U nivers INHALE 9-30 mg every 4 ity of 15:16: (four) [place] 08 hours as Medical needed Branch (wheezing) . acetaminoph 2021-0 Yes 1{tbl} Take 1 Un claudia en-codeine 9-30 tablet by ity of 300-30 mg 15:16: mouth [place] tablet 08 every 6 Medical (six) Branch hours as needed. pregabalin 2021-0 Yes 75mg Take 75 mg U nivers 75 mg 9-30 by mouth 2 ity of capsule 15:16: (two) [place] 08 times Medical daily. Branch FLUTICASONE 2021-0 Yes 50ug Use 50 mcg Univers PROPIONATE [...] Medical (six) Branch hours as needed. pregabalin 2- No [id number] 150mg Take 1 Univers (LYRICA) 04-25 capsule by ity of 150 mg 00:00: 05:59 mouth in [place] capsule 00 :00 the Medical morning Branch and 1 capsule in the evening. Do all this for 90 days. pregabalin 2- No [id number] 150mg Take 1 Univers (LYRICA) 04-25 capsule by ity of 150 mg 00:00: 05:59 mouth in [place] capsule 00 :00 the Medical morning Branch and 1 capsule in the evening. Do all this for 90 days. pregabalin 2021- No [id number] 150mg Take 1 Univers (LYRICA) 04-25- capsule by ity of 150 mg 00:00: 05:59 mouth in [place] capsule 00 :00 the Medical morning Branch and 1 capsule in the evening. Do all this for 90 days. pregabalin 2021-2- No [id number] 150mg Take 1 Univers (LYRICA) 04-25 capsule by ity of 150 mg 00:00: 05:59 mouth in [place] capsule 00 :00 the Medical morning Branch and 1 capsule in the evening. Do all this for 90 days. pregabalin 2021-2- No [id number] 150mg Take 1 Univers (LYRICA) 04-25 capsule by ity of 150 mg 00:00: 05:59 mouth in [place] capsule 00 :00 the Medical morning Branch and 1 capsule in the evening. Do all this for 90 days. pregabalin 2021-2- No [id number] 150mg Take 1 Univers (LYRICA) 04-25- capsule by ity of 150 mg 00:00: 05:59 mouth in [place] capsule 00 :00 the Medical morning Branch and 1 capsule in the evening. Do all this for 90 days. pregabalin 2021-0 2- No [id number] 150mg Take 1 Univers (LYRICA) 04-25 capsule by ity of 150 mg 00:00: 05:59 mouth in [place] capsule 00 :00 the Medical morning Branch and 1 capsule in the evening. Do all this for 90 days. pregabalin 2021-0 2- No [id number] 150mg Take 1 Univers (LYRICA) 04-25 capsule by ity of 150 mg 00:00: 00:00 mouth in [place] capsule 00 :00 the Medical morning Branch and 1 capsule in the evening. Do all this for 90 days. pregabalin 2021-0 2- No [id number] 150mg Take 1 [facility] ([facility]) 04-25 capsule by ity of 150 mg 00:00: 00:00 mouth in [place] capsule 00 :00 the Medical morning Branch and 1 capsule in the evening. Do all this for 90 days. bromphenira 2021-0 2- No [id number] 10mL Take 10 mL [facility] mine-pseudo 04-09 by mouth 4 i ty of ephedrine-D 00:00: 04:59 (four) [place] as M 230- 00 :00 times Medical mg/5 mL daily as [facility] syrup needed for Congestion /Allergies for up to 7 days. bromphenira 2021-0 2- No [id number] 10mL Take 10 mL [facility] mine-pseudo 04-09 by mouth 4 i ty of ephedrine-D 00:00: 04:59 (four) [place] as M 230-10 00 :00 times Medical mg/5 mL daily as [facility] syrup needed for Congestion /Allergies for up to 7 days. ketoconazol 0 Yes [id number] Apply to [facility] e 2 % cream 7-14 area(s) 2 ity of 00:00: (two) [place] 00 times Medical daily. Branch hydrocortis 0 Yes [id number] Apply to [facility] one 2.5 % 7-14 affected ity of cream 00:00: area(s) 2 [place] 00 (two) Medical times Branch daily. Safe for the face. ketoconazol 2022-0 Yes [id number] Apply to [facility] e 2 % cream 7-14 area(s) 2 ity of 00:00: (two) [place] 00 times Medical daily. Branch hydrocortis 2021-0 Yes [id number] Apply to [facility] one 2.5 % 7-14 affected ity of cream 00:00: area(s) 2 [place] 00 (two) Medical times Branch daily. Safe for the face. ketoconazol 2-0 Yes [id number] Apply to [facility] e 2 % cream 7-14 area(s) 2 ity of 00:00: (two) [place] 00 times Medical daily. Branch hydrocortis 2021-0 Yes [id number] Apply to [facility] one 2.5 % 7-14 affected ity of cream 00:00: area(s) 2 [place] 00 (two) Medical times Branch daily. Safe for the face. ketoconazol 2-0 Yes [id number] Apply to [facility] e 2 % cream 7-14 area(s) 2 ity of 00:00: (two) [place] 00 times Medical daily. Branch hydrocortis 2021-0 Yes [id number] Apply to [facility] one 2.5 % 7-14 affected ity of cream 00:00: area(s) 2 [place] (two) Medical times [place] daily. Safe for the face. ketoconazol 2-0 Yes [id number] Apply to [facility] e 2 % cream 7-14 area(s) 2 ity of 00:00: (two) [place] 00 times Medical daily. Branch hydrocortis 2021-0 Yes [id number] Apply to [facility] one 2.5 % 7-14 affected ity of cream 00:00: area(s) 2 [place] 00 (two) Medical times Branch daily. Safe for the face. ketoconazol 2-0 Yes [id number] Apply to [facility] e 2 % cream 7-14 area(s) 2 ity of 00:00: (two) [place] 00 times Medical daily. Branch hydrocortis 2022-0 Yes [id number] Apply to [facility] one 2.5 % 7-14 affected ity of cream 00:00: area(s) 2 [place] 00 (two) Medical times Branch daily. Safe for the face. ketoconazol 2-0 Yes [id number] Apply to [facility] e 2 % cream 7-14 area(s) 2 ity of 00:00: (two) [place] 00 times Medical daily. Branch hydrocortis 2022-0 Yes [id number] Apply to [facility] one 2.5 % 7-14 affected ity of cream 00:00: area(s) 2 [place] (two) Medical times Branch daily. Safe for the face. ketoconazol 2022-0 Yes [id number] Apply to [facility] e 2 % cream 7-14 area(s) 2 ity of 00:00: (two) [place] 00 times Medical daily. Branch hydrocortis 2-0 Yes [id number] Apply to [facility] one 2.5 % 7-14 affected ity of cream 00:00: area(s) 2 [place] (two) Medical times Branch daily. Safe for the face. ketoconazol 2-0 Yes [id number] Apply to [facility] e 2 % cream 7-14 area(s) 2 ity of 00:00: (two) [place] 00 times Medical daily. Branch hydrocortis 2021-0 Yes [id number] Apply to [facility] one 2.5 % 7-14 affected ity of cream 00:00: area(s) 2 [place] (two) Medical times Branch daily. Safe for the face. ketoconazol 2-0 Yes [id number] Apply to [facility] e 2 % cream 7-14 area(s) 2 ity of 00:00: (two) [place] 00 times Medical daily. Branch hydrocortis 2021-0 Yes [id number] Apply to [facility] one 2.5 % 7-14 affected ity of cream 00:00: area(s) 2 [place] (two) Medical times Branch daily. Safe for the face. ketoconazol 2-0 Yes [id number] Apply to [facility] e 2 % cream 7-14 area(s) 2 ity of 00:00: (two) [place] 00 times Medical daily. Branch hydrocortis 2022-0 Yes [id number] Apply to [facility] one 2.5 % 7-14 affected ity of cream 00:00: area(s) 2 [place] (two) Medical times Branch daily. Safe for the face. ketoconazol 2022-0 Yes [id number] Apply to [facility] e 2 % cream 7-14 area(s) 2 ity of 00:00: (two) [place] 00 times Medical daily. Branch hydrocortis 2022-0 Yes [id number] Apply to [facility] one 2.5 % 7-14 affected ity of cream 00:00: area(s) 2 [place] (two) Medical times [place] daily. Safe for the face. ketoconazol 2021-0 Yes [id number] Apply to [facility] e 2 % cream 7-14 area(s) 2 ity of 00:00: (two) [place] 00 times Medical daily. Branch hydrocortis 2021-0 Yes [id number] Apply to [facility] one 2.5 % 7-14 affected ity of cream 00:00: area(s) 2 [place] 00 (two) Medical times [place] daily. Safe for the face. ketoconazol 2021-0 Yes [id number] Apply to [facility] e 2 % cream 7-14 area(s) 2 ity of 00:00: (two) [place] 00 times Medical daily. Branch hydrocortis 2021-0 Yes [id number] Apply to [facility] one 2.5 % 7-14 affected ity of cream 00:00: area(s) 2 [place] (two) Medical times [place] daily. Safe for the face. ketoconazol 2021-0 Yes [id number] Apply to [facility] e 2 % cream 7-14 area(s) 2 ity of 00:00: (two) [place] 00 times Medical daily. Branch hydrocortis 2021-0 Yes [id number] Apply to [facility] one 2.5 % 7-14 affected ity of cream 00:00: area(s) 2 [place] 00 (two) Medical times [place] daily. Safe for the face. ketoconazol 2021-0 Yes [id number] Apply to [facility] e 2 % cream 7-14 area(s) 2 ity of 00:00: (two) [place] 00 times Medical daily. Branch hydrocortis 2021-0 Yes [id number] Apply to [facility] one 2.5 % 7-14 affected ity of cream 00:00: area(s) 2 [place] 00 (two) Medical times [place] daily. Safe for the face. ketoconazol 2-0 Yes [id number] Apply to [facility] e 2 % cream 7-14 area(s) 2 ity of 00:00: (two) [place] 00 times Medical daily. Branch hydrocortis 2021-0 Yes [id number] Apply to [facility] one 2.5 % 7-14 affected ity of cream 00:00: area(s) 2 [place] 00 (two) Medical times Branch daily. Safe for the face. ketoconazol 2022-0 Yes [id number] Apply to [facility] e 2 % cream 7-14 area(s) 2 ity of 00:00: (two) [place] 00 times Medical daily. Branch hydrocortis 2022-0 Yes [id number] Apply to [facility] one 2.5 % 7-14 affected ity of cream 00:00: area(s) 2 [place] 00 (two) Medical times Branch daily. Safe for the face. ketoconazol 2-0 Yes [id number] Apply to [facility] e 2 % cream 7-14 area(s) 2 ity of 00:00: (two) [place] 00 times Medical daily. Branch hydrocortis 2-0 Yes [id number] Apply to [facility] one 2.5 % 7-14 affected ity of cream 00:00: area(s) 2 [place] 00 (two) Medical times Branch daily. Safe for the face. ketoconazol 2-0 Yes [id number] Apply to [facility] e 2 % cream 7-14 area(s) 2 ity of 00:00: (two) [place] 00 times Medical daily. Branch hydrocortis 2-0 Yes [id number] Apply to [facility] one 2.5 % 7-14 affected ity of cream 00:00: area(s) 2 [place] 00 (two) Medical times Branch daily. Safe for the face. ketoconazol 2022-0 Yes [id number] Apply to [facility] e 2 % cream 7-14 area(s) 2 ity of 00:00: (two) [place] 00 times Medical daily. Branch hydrocortis 2022-0 Yes [id number] Apply to [facility] one 2.5 % 7-14 affected ity of cream 00:00: area(s) 2 [place] 00 (two) Medical times Branch daily. Safe for the face. ketoconazol 2022-0 Yes [id number] Apply to [facility] e 2 % cream 7-14 area(s) 2 ity of 00:00: (two) [place] 00 times Medical daily. Branch hydrocortis 2022-0 Yes [id number] Apply to [facility] one 2.5 % 7-14 affected ity of cream 00:00: area(s) 2 [place] 00 (two) Medical times Branch daily. Safe for the face. ketoconazol 2022-0 Yes [id number] Apply to [facility] e 2 % cream 7-14 area(s) 2 ity of 00:00: (two) [place] 00 times Medical daily. Branch hydrocortis 2022-0 Yes [id number] Apply to [facility] one 2.5 % 7-14 affected ity of cream 00:00: area(s) 2 [place] 00 (two) Medical times Branch daily. Safe for the face. ketoconazol 2022-0 Yes [id number] Apply to [facility] e 2 % cream 7-14 area(s) 2 ity of 00:00: (two) [place] 00 times Medical daily. Branch hydrocortis 2022-0 Yes [id number] Apply to [facility] one 2.5 % 7-14 affected ity of cream 00:00: area(s) 2 [place] 00 (two) Medical times Branch daily. Safe for the face. ketoconazol 2-0 Yes [id number] Apply to [facility] e 2 % cream 7-14 area(s) 2 ity of 00:00: (two) [place] 00 times Medical daily. Branch hydrocortis 2-0 Yes [id number] Apply to [facility] one 2.5 % 7-14 affected ity of cream 00:00: area(s) 2 [place] (two) Medical times Branch daily. Safe for the face. ketoconazol 2-0 Yes [id number] Apply to [facility] e 2 % cream 7-14 area(s) 2 ity of 00:00: (two) [place] 00 times Medical daily. Branch hydrocortis 2-0 Yes [id number] Apply to [facility] one 2.5 % 7-14 affected ity of cream 00:00: area(s) 2 [place] 00 (two) Medical times Branch daily. Safe for the face. ketoconazol 2022-0 Yes [id number] Apply to [facility] e 2 % cream 7-14 area(s) 2 ity of 00:00: (two) [place] 00 times Medical daily. Branch hydrocortis 2022-0 Yes [id number] Apply to [facility] one 2.5 % 7-14 affected ity of cream 00:00: area(s) 2 [place] 00 (two) Medical times Branch daily. Safe for the face. ketoconazol 2022-0 Yes [id number] Apply to [facility] e 2 % cream 7-14 area(s) 2 ity of 00:00: (two) [place] 00 times Medical daily. Branch hydrocortis 2021-0 Yes [id number] Apply to [facility] one 2.5 % 7-14 affected ity of cream 00:00: area(s) 2 [place] 00 (two) Medical times Branch daily. Safe for the face. ketoconazol 2-0 Yes [id number] Apply to [facility] e 2 % cream 7-14 area(s) 2 ity of 00:00: (two) [place] 00 times Medical daily. Branch hydrocortis 2021-0 Yes [id number] Apply to [facility] one 2.5 % 7-14 affected ity of cream 00:00: area(s) 2 [place] 00 (two) Medical times Branch daily. Safe for the face. ketoconazol 2021-0 Yes [id number] Apply to [facility] e 2 % cream 7-14 area(s) 2 ity of 00:00: (two) [place] 00 times Medical daily. Branch hydrocortis 2021-0 Yes [id number] Apply to [facility] one 2.5 % 7-14 affected ity of cream 00:00: area(s) 2 [place] (two) Medical times Branch daily. Safe for the face. ketoconazol 2021-0 Yes [id number] Apply to [facility] e 2 % cream 7-14 area(s) 2 ity of 00:00: (two) [place] 00 times Medical daily. Branch hydrocortis 2021-0 Yes [id number] Apply to [facility] one 2.5 % 7-14 affected ity of cream 00:00: area(s) 2 [place] 00 (two) Medical times Branch daily. Safe for the face. ketoconazol 2-0 Yes [id number] Apply to [facility] e 2 % cream 7-14 area(s) 2 ity of 00:00: (two) [place] 00 times Medical daily. Branch hydrocortis 2-0 Yes [id number] Apply to [facility] one 2.5 % 7-14 affected ity of cream 00:00: area(s) 2 [place] 00 (two) Medical times Branch daily. Safe for the face. ketoconazol 2-0 Yes [id number] Apply to [facility] e 2 % cream 7-14 area(s) 2 ity of 00:00: (two) [place] 00 times Medical daily. Branch hydrocortis 2-0 Yes [id number] Apply to [facility] one 2.5 % 7-14 affected ity of cream 00:00: area(s) 2 [place] (two) Medical times Branch daily. Safe for the face. ketoconazol 2-0 Yes [id number] Apply to [facility] e 2 % cream 7-14 area(s) 2 ity of 00:00: (two) [place] 00 times Medical daily. Branch hydrocortis 2022-0 Yes [id number] Apply to [facility] one 2.5 % 7-14 affected ity of cream 00:00: area(s) 2 [place] (two) Medical times Branch daily. Safe for the face. ketoconazol 2-0 Yes [id number] Apply to [facility] e 2 % cream 7-14 area(s) 2 ity of 00:00: (two) [place] 00 times Medical daily. Branch hydrocortis 2-0 Yes [id number] Apply to [facility] one 2.5 % 7-14 affected ity of cream 00:00: area(s) 2 [place] (two) Medical times Branch daily. Safe for the face. ketoconazol 2-0 Yes [id number] Apply to [facility] e 2 % cream 7-14 area(s) 2 ity of 00:00: (two) [place] 00 times Medical daily. Branch hydrocortis 2-0 Yes [id number] Apply to [facility] one 2.5 % 7-14 affected ity of cream 00:00: area(s) 2 [place] (two) Medical times Branch daily. Safe for the face. ketoconazol 2022-0 Yes [id number] Apply to [facility] e 2 % cream 7-14 area(s) 2 ity of 00:00: (two) [place] 00 times Medical daily. Branch hydrocortis 2022-0 Yes [id number] Apply to [facility] one 2.5 % 7-14 affected ity of cream 00:00: area(s) 2 [place] (two) Medical times Branch daily. Safe for the face. ketoconazol 2022-0 Yes [id number] Apply to [facility] e 2 % cream 7-14 area(s) 2 ity of 00:00: (two) [place] 00 times Medical daily. Branch hydrocortis 2022-0 Yes [id number] Apply to [facility] one 2.5 % 7-14 affected ity of cream 00:00: area(s) 2 [place] 00 (two) Medical times Branch daily. Safe for the face. ketoconazol 2021-0 Yes [id number] Apply to [facility] e 2 % cream 7-14 area(s) 2 ity of 00:00: (two) [place] 00 times Medical daily. Branch hydrocortis 2021-0 Yes [id number] Apply to [facility] one 2.5 % 7-14 affected ity of cream 00:00: area(s) 2 [place] 00 (two) Medical times Branch daily. Safe for the face. ketoconazol 2021-0 Yes [id number] Apply to [facility] e 2 % cream 7-14 area(s) 2 ity of 00:00: (two) [place] 00 times Medical daily. Branch hydrocortis 2021-0 Yes [id number] Apply to [facility] one 2.5 % 7-14 affected ity of cream 00:00: area(s) 2 [place] 00 (two) Medical times Branch daily. Safe for the face. ketoconazol 2021-0 Yes [id number] Apply to [facility] e 2 % cream 7-14 area(s) 2 ity of 00:00: (two) [place] 00 times Medical daily. Branch hydrocortis 2021-0 Yes [id number] Apply to [facility] one 2.5 % 7-14 affected ity of cream 00:00: area(s) 2 [place] 00 (two) Medical times Branch daily. Safe for the face. ketoconazol 2021-0 Yes [id number] Apply to [facility] e 2 % cream 7-14 area(s) 2 ity of 00:00: (two) [place] 00 times Medical daily. Branch hydrocortis 2021-0 Yes [id number] Apply to [facility] one 2.5 % 7-14 affected ity of cream 00:00: area(s) 2 [place] 00 (two) Medical times Branch daily. Safe for the face. ketoconazol 2-0 Yes [id number] Apply to [facility] e 2 % cream 7-14 area(s) 2 ity of 00:00: (two) [place] 00 times Medical daily. Branch hydrocortis 2021-0 Yes [id number] Apply to [facility] one 2.5 % 7-14 affected ity of cream 00:00: area(s) 2 [place] 00 (two) Medical times Branch daily. Safe for the face. ketoconazol 2022-0 Yes [id number] Apply to [facility] e 2 % cream 7-14 area(s) 2 ity of 00:00: (two) [place] 00 times Medical daily. Branch hydrocortis 2-0 Yes [id number] Apply to [facility] one 2.5 % 7-14 affected ity of cream 00:00: area(s) 2 [place] 00 (two) Medical times Branch daily. Safe for the face. ketoconazol 2-0 Yes [id number] Apply to [facility] e 2 % cream 7-14 area(s) 2 ity of 00:00: (two) [place] 00 times Medical daily. Branch hydrocortis 2-0 Yes [id number] Apply to [facility] one 2.5 % 7-14 affected ity of cream 00:00: area(s) 2 [place] 00 (two) Medical times Branch daily. Safe for the face. ketoconazol 2-0 Yes [id number] Apply to [facility] e 2 % cream 7-14 area(s) 2 ity of 00:00: (two) [place] 00 times Medical daily. Branch hydrocortis 2021-0 Yes [id number] Apply to [facility] one 2.5 % 7-14 affected ity of cream 00:00: area(s) 2 [place] 00 (two) Medical times Branch daily. Safe for the face. ketoconazol 2-0 Yes [id number] Apply to [facility] e 2 % cream 7-14 area(s) 2 ity of 00:00: (two) [place] 00 times Medical daily. Branch hydrocortis 2-0 Yes [id number] Apply to [facility] one 2.5 % 7-14 affected ity of cream 00:00: area(s) 2 [place] 00 (two) Medical times Branch daily. Safe for the face. ketoconazol 2022-0 Yes [id number] Apply to [facility] e 2 % cream 7-14 area(s) 2 ity of 00:00: (two) [place] 00 times Medical daily. Branch hydrocortis 2022-0 Yes [id number] Apply to [facility] one 2.5 % 7-14 affected ity of cream 00:00: area(s) 2 [place] 00 (two) Medical times Branch daily. Safe for the face. ketoconazol 2022-0 Yes [id number] Apply to [facility] e 2 % cream 7-14 area(s) 2 ity of 00:00: (two) [place] 00 times Medical daily. Branch hydrocortis 2-0 Yes [id number] Apply to [facility] one 2.5 % 7-14 affected ity of cream 00:00: area(s) 2 [place] 00 (two) Medical times Branch daily. Safe for the face. ketoconazol 2022-0 Yes [id number] Apply to [facility] e 2 % cream 7-14 area(s) 2 ity of 00:00: (two) [place] 00 times Medical daily. Branch hydrocortis 2022-0 Yes [id number] Apply to [facility] one 2.5 % 7-14 affected ity of cream 00:00: area(s) 2 [place] 00 (two) Medical times Branch daily. Safe for the face. ketoconazol 2-0 Yes [id number] Apply to [facility] e 2 % cream 7-14 area(s) 2 ity of 00:00: (two) [place] 00 times Medical daily. Branch hydrocortis 2-0 Yes [id number] Apply to [facility] one 2.5 % 7-14 affected ity of cream 00:00: area(s) 2 [place] (two) Medical times Branch daily. Safe for the face. ketoconazol 2-0 Yes [id number] Apply to [facility] e 2 % cream 7-14 area(s) 2 ity of 00:00: (two) [place] 00 times Medical daily. Branch hydrocortis 2-0 Yes [id number] Apply to [facility] one 2.5 % 7-14 affected ity of cream 00:00: area(s) 2 [place] 00 (two) Medical times Branch daily. Safe for the face. ketoconazol 2022-0 Yes [id number] Apply to [facility] e 2 % cream 7-14 area(s) 2 ity of 00:00: (two) [place] 00 times Medical daily. Branch hydrocortis 2022-0 Yes [id number] Apply to [facility] one 2.5 % 7-14 affected ity of cream 00:00: area(s) 2 [place] 00 (two) Medical times Branch daily. Safe for the face. ketoconazol 2022-0 Yes [id number] Apply to [facility] e 2 % cream 7-14 area(s) 2 ity of 00:00: (two) [place] 00 times Medical daily. Branch hydrocortis 2021-0 Yes [id number] Apply to [facility] one 2.5 % 7-14 affected ity of cream 00:00: area(s) 2 [place] 00 (two) Medical times Branch daily. Safe for the face. ketoconazol 2021-0 Yes [id number] Apply to [facility] e 2 % cream 7-14 area(s) 2 ity of 00:00: (two) [place] 00 times Medical daily. Branch hydrocortis 2021-0 Yes [id number] Apply to [facility] one 2.5 % 7-14 affected ity of cream 00:00: area(s) 2 [place] 00 (two) Medical times Branch daily. Safe for the face. ketoconazol 2021-0 Yes [id number] Apply to [facility] e 2 % cream 7-14 area(s) 2 ity of 00:00: (two) [place] 00 times Medical daily. Branch hydrocortis 2021-0 Yes [id number] Apply to [facility] one 2.5 % 7-14 affected ity of cream 00:00: area(s) 2 [place] (two) Medical times [place] daily. Safe for the face. ketoconazol 2021-0 Yes [id number] Apply to [facility] e 2 % cream 7-14 area(s) 2 ity of 00:00: (two) [place] 00 times Medical daily. Branch hydrocortis 2021-0 Yes [id number] Apply to [facility] one 2.5 % 7-14 affected ity of cream 00:00: area(s) 2 [place] 00 (two) Medical times Branch daily. Safe for the face. ketoconazol 2-0 Yes [id number] Apply to [facility] e 2 % cream 7-14 area(s) 2 ity of 00:00: (two) [place] 00 times Medical daily. Branch hydrocortis 2-0 Yes [id number] Apply to [facility] one 2.5 % 7-14 affected ity of cream 00:00: area(s) 2 [place] 00 (two) Medical times Branch daily. Safe for the face. ketoconazol 2-0 Yes [id number] Apply to [facility] e 2 % cream 7-14 area(s) 2 ity of 00:00: (two) [place] 00 times Medical daily. Branch hydrocortis 2-0 Yes [id number] Apply to [facility] one 2.5 % 7-14 affected ity of cream 00:00: area(s) 2 [place] (two) Medical times Branch daily. Safe for the face. ketoconazol 2-0 Yes [id number] Apply to [facility] e 2 % cream 7-14 area(s) 2 ity of 00:00: (two) [place] 00 times Medical daily. Branch hydrocortis 2-0 Yes [id number] Apply to [facility] one 2.5 % 7-14 affected ity of cream 00:00: area(s) 2 [place] (two) Medical times Branch daily. Safe for the face. ketoconazol 2-0 Yes [id number] Apply to [facility] e 2 % cream 7-14 area(s) 2 ity of 00:00: (two) [place] 00 times Medical daily. Branch hydrocortis 2021-0 Yes [id number] Apply to [facility] one 2.5 % 7-14 affected ity of cream 00:00: area(s) 2 [place] (two) Medical times [place] daily. Safe for the face. ketoconazol 2-0 Yes [id number] Apply to [facility] e 2 % cream 7-14 area(s) 2 ity of 00:00: (two) [place] 00 times Medical daily. Branch hydrocortis 2021-0 Yes [id number] Apply to [facility] one 2.5 % 7-14 affected ity of cream 00:00: area(s) 2 [place] (two) Medical times [place] daily. Safe for the face. ketoconazol 2-0 Yes [id number] Apply to [facility] e 2 % cream 7-14 area(s) 2 ity of 00:00: (two) [place] 00 times Medical daily. Branch hydrocortis 2022-0 Yes [id number] Apply to [facility] one 2.5 % 7-14 affected ity of cream 00:00: area(s) 2 [place] (two) Medical times Branch daily. Safe for the face. ketoconazol 2022-0 Yes [id number] Apply to [facility] e 2 % cream 7-14 area(s) 2 ity of 00:00: (two) [place] 00 times Medical daily. Branch hydrocortis 2022-0 Yes [id number] Apply to [facility] one 2.5 % 7-14 affected ity of cream 00:00: area(s) 2 [place] 00 (two) Medical times Branch daily. Safe for the face. ketoconazol 2021-0 Yes [id number] Apply to [facility] e 2 % cream 7-14 area(s) 2 ity of 00:00: (two) [place] 00 times Medical daily. Branch hydrocortis 2021-0 Yes [id number] Apply to [facility] one 2.5 % 7-14 affected ity of cream 00:00: area(s) 2 [place] 00 (two) Medical times Branch daily. Safe for the face. ketoconazol 2021-0 Yes [id number] Apply to [facility] e 2 % cream 7-14 area(s) 2 ity of 00:00: (two) [place] 00 times Medical daily. Branch hydrocortis 2021-0 Yes [id number] Apply to [facility] one 2.5 % 7-14 affected ity of cream 00:00: area(s) 2 [place] 00 (two) Medical times Branch daily. Safe for the face. ketoconazol 2021-0 Yes [id number] Apply to [facility] e 2 % cream 7-14 area(s) 2 ity of 00:00: (two) [place] 00 times Medical daily. Branch hydrocortis 2021-0 Yes [id number] Apply to [facility] one 2.5 % 7-14 affected ity of cream 00:00: area(s) 2 [place] 00 (two) Medical times Branch daily. Safe for the face. ketoconazol 2021-0 Yes [id number] Apply to [facility] e 2 % cream 7-14 area(s) 2 ity of 00:00: (two) [place] 00 times Medical daily. Branch hydrocortis 2021-0 Yes [id number] Apply to [facility] one 2.5 % 7-14 affected ity of cream 00:00: area(s) 2 [place] 00 (two) Medical times Branch daily. Safe for the face. ketoconazol 2-0 Yes [id number] Apply to [facility] e 2 % cream 7-14 area(s) 2 ity of 00:00: (two) [place] 00 times Medical daily. Branch hydrocortis 2-0 Yes [id number] Apply to [facility] one 2.5 % 7-14 affected ity of cream 00:00: area(s) 2 [place] 00 (two) Medical times Branch daily. Safe for the face. ketoconazol 2022-0 Yes [id number] Apply to [facility] e 2 % cream 7-14 area(s) 2 ity of 00:00: (two) [place] 00 times Medical daily. Branch hydrocortis 2022-0 Yes [id number] Apply to [facility] one 2.5 % 7-14 affected ity of cream 00:00: area(s) 2 [place] 00 (two) Medical times Branch daily. Safe for the face. ketoconazol 2-0 Yes [id number] Apply to [facility] e 2 % cream 7-14 area(s) 2 ity of 00:00: (two) [place] 00 times Medical daily. Branch hydrocortis 2-0 Yes [id number] Apply to [facility] one 2.5 % 7-14 affected ity of cream 00:00: area(s) 2 [place] (two) Medical times Branch daily. Safe for the face. ketoconazol 2-0 Yes [id number] Apply to [facility] e 2 % cream 7-14 area(s) 2 ity of 00:00: (two) [place] 00 times Medical daily. Branch hydrocortis 2-0 Yes [id number] Apply to [facility] one 2.5 % 7-14 affected ity of cream 00:00: area(s) 2 [place] 00 (two) Medical times Branch daily. Safe for the face. ketoconazol 2-0 Yes [id number] Apply to [facility] e 2 % cream 7-14 area(s) 2 ity of 00:00: (two) [place] 00 times Medical daily. Branch hydrocortis 2-0 Yes [id number] Apply to [facility] one 2.5 % 7-14 affected ity of cream 00:00: area(s) 2 [place] 00 (two) Medical times Branch daily. Safe for the face. ketoconazol 2022-0 Yes [id number] Apply to [facility] e 2 % cream 7-14 area(s) 2 ity of 00:00: (two) [place] 00 times Medical daily. Branch hydrocortis 2022-0 Yes [id number] Apply to [facility] one 2.5 % 7-14 affected ity of cream 00:00: area(s) 2 [place] 00 (two) Medical times Branch daily. Safe for the face. ketoconazol 2022-0 Yes [id number] Apply to [facility] e 2 % cream 7-14 area(s) 2 ity of 00:00: (two) [place] 00 times Medical daily. Branch hydrocortis 2-0 Yes [id number] Apply to [facility] one 2.5 % 7-14 affected ity of cream 00:00: area(s) 2 [place] 00 (two) Medical times Branch daily. Safe for the face. ketoconazol 2-0 Yes [id number] Apply to [facility] e 2 % cream 7-14 area(s) 2 ity of 00:00: (two) [place] 00 times Medical daily. Branch hydrocortis 2-0 Yes [id number] Apply to [facility] one 2.5 % 7-14 affected ity of cream 00:00: area(s) 2 [place] 00 (two) Medical times Branch daily. Safe for the face. ketoconazol 2-0 Yes [id number] Apply to [facility] e 2 % cream 7-14 area(s) 2 ity of 00:00: (two) [place] 00 times Medical daily. Branch hydrocortis 2021-0 Yes [id number] Apply to [facility] one 2.5 % 7-14 affected ity of cream 00:00: area(s) 2 [place] (two) Medical times Branch daily. Safe for the face. ketoconazol 2-0 Yes [id number] Apply to [facility] 2 % cream 7-14 area(s) 2 ity of 00:00: (two) [place] 00 times Medical daily. Branch hydrocortis 2-0 Yes [id number] Apply to [facility] one 2.5 % 7-14 affected ity of cream 00:00: area(s) 2 [place] 00 (two) Medical times Branch daily. Safe for the face. ketoconazol 2022-0 Yes [id number] Apply to [facility] e 2 % cream 7-14 area(s) 2 ity of 00:00: (two) [place] 00 times Medical daily. Branch hydrocortis 2022-0 Yes [id number] Apply to [facility] one 2.5 % 7-14 affected ity of cream 00:00: area(s) 2 [place] 00 (two) Medical times Branch daily. Safe for the face. ketoconazol 2022-0 Yes [id number] Apply to [facility] e 2 % cream 7-14 area(s) 2 ity of 00:00: (two) [place] 00 times Medical daily. Branch hydrocortis 2-0 Yes [id number] Apply to [facility] one 2.5 % 7-14 affected ity of cream 00:00: area(s) 2 [place] 00 (two) Medical times Branch daily. Safe for the face. ketoconazol 2-0 Yes [id number] Apply to [facility] e 2 % cream 7-14 area(s) 2 ity of 00:00: (two) [place] 00 times Medical daily. Branch hydrocortis 2021-0 Yes [id number] Apply to [facility] one 2.5 % 7-14 affected ity of cream 00:00: area(s) 2 [place] (two) Medical times Branch daily. Safe for the face. ketoconazol 2-0 Yes [id number] Apply to [facility] e 2 % cream 7-14 area(s) 2 ity of 00:00: (two) [place] 00 times Medical daily. Branch hydrocortis 2021-0 Yes [id number] Apply to [facility] one 2.5 % 7-14 affected ity of cream 00:00: area(s) 2 [place] (two) Medical times Branch daily. Safe for the face. ketoconazol 2-0 Yes [id number] Apply to [facility] e 2 % cream 7-14 area(s) 2 ity of 00:00: (two) [place] 00 times Medical daily. Branch hydrocortis 2021-0 Yes [id number] Apply to [facility] one 2.5 % 7-14 affected ity of cream 00:00: area(s) 2 [place] 00 (two) Medical times Branch daily. Safe for the face. ketoconazol 2-0 Yes [id number] Apply to [facility] e 2 % cream 7-14 area(s) 2 ity of 00:00: (two) [place] 00 times Medical daily. Branch hydrocortis 2-0 Yes [id number] Apply to [facility] one 2.5 % 7-14 affected ity of cream 00:00: area(s) 2 [place] 00 (two) Medical times Branch daily. Safe for the face. ketoconazol 2022-0 Yes [id number] Apply to [facility] e 2 % cream 7-14 area(s) 2 ity of 00:00: (two) [place] 00 times Medical daily. Branch hydrocortis 2-0 Yes [id number] Apply to [facility] one 2.5 % 7-14 affected ity of cream 00:00: area(s) 2 [place] (two) Medical times Branch daily. Safe for the face. ketoconazol 2-0 Yes [id number] Apply to [facility] e 2 % cream 7-14 area(s) 2 ity of 00:00: (two) [place] 00 times Medical daily. Branch hydrocortis 2-0 Yes [id number] Apply to [facility] one 2.5 % 7-14 affected ity of cream 00:00: area(s) 2 [place] (two) Medical times [place] daily. Safe for the face. ketoconazol 2-0 Yes [id number] Apply to [facility] e 2 % cream 7-14 area(s) 2 ity of 00:00: (two) [place] 00 times Medical daily. Branch hydrocortis 2021-0 Yes [id number] Apply to [facility] one 2.5 % 7-14 affected ity of cream 00:00: area(s) 2 [place] (two) Medical times [place] daily. Safe for the face. ketoconazol 2-0 Yes [id number] Apply to [facility] e 2 % cream 7-14 area(s) 2 ity of 00:00: (two) [place] 00 times Medical daily. Branch hydrocortis 2-0 Yes [id number] Apply to [facility] one 2.5 % 7-14 affected ity of cream 00:00: area(s) 2 [place] (two) Medical times [place] daily. Safe for the face. ketoconazol 2-0 Yes [id number] Apply to [facility] e 2 % cream 7-14 area(s) 2 ity of 00:00: (two) [place] 00 times Medical daily. Branch hydrocortis 2-0 Yes [id number] Apply to [facility] one 2.5 % 7-14 affected ity of cream 00:00: area(s) 2 [place] (two) Medical times [place] daily. Safe for the face. ketoconazol 2022-0 Yes [id number] Apply to [facility] e 2 % cream 7-14 area(s) 2 ity of 00:00: (two) [place] 00 times Medical daily. Branch hydrocortis 2022-0 Yes [id number] Apply to [facility] one 2.5 % 7-14 affected ity of cream 00:00: area(s) 2 [place] 00 (two) Medical times Branch daily. Safe for the face. ketoconazol 2-0 Yes [id number] Apply to [facility] e 2 % cream 7-14 area(s) 2 ity of 00:00: (two) [place] 00 times Medical daily. Branch hydrocortis 2021-0 Yes [id number] Apply to [facility] one 2.5 % 7-14 affected ity of cream 00:00: area(s) 2 [place] 00 (two) Medical times Branch daily. Safe for the face. ketoconazol 2-0 Yes [id number] Apply to [facility] e 2 % cream 7-14 area(s) 2 ity of 00:00: (two) [place] 00 times Medical daily. Branch hydrocortis 2021-0 Yes [id number] Apply to [facility] one 2.5 % 7-14 affected ity of cream 00:00: area(s) 2 [place] 00 (two) Medical times Branch daily. Safe for the face. ketoconazol 2-0 Yes [id number] Apply to [facility] e 2 % cream 7-14 area(s) 2 ity of 00:00: (two) [place] 00 times Medical daily. Branch hydrocortis 2021-0 Yes [id number] Apply to [facility] one 2.5 % 7-14 affected ity of cream 00:00: area(s) 2 [place] 00 (two) Medical times Branch daily. Safe for the face. ketoconazol 2-0 Yes [id number] Apply to [facility] e 2 % cream 7-14 area(s) 2 ity of 00:00: (two) [place] 00 times Medical daily. Branch hydrocortis 2-0 Yes [id number] Apply to [facility] one 2.5 % 7-14 affected ity of cream 00:00: area(s) 2 [place] 00 (two) Medical times Branch daily. Safe for the face. ketoconazol 2022-0 Yes [id number] Apply to [facility] e 2 % cream 7-14 area(s) 2 ity of 00:00: (two) [place] 00 times Medical daily. Branch hydrocortis 2022-0 Yes [id number] Apply to [facility] one 2.5 % 7-14 affected ity of cream 00:00: area(s) 2 [place] 00 (two) Medical times Branch daily. Safe for the face. ketoconazol 2022-0 Yes [id number] Apply to [facility] e 2 % cream 7-14 area(s) 2 ity of 00:00: (two) [place] 00 times Medical daily. Branch hydrocortis 2-0 Yes [id number] Apply to [facility] one 2.5 % 7-14 affected ity of cream 00:00: area(s) 2 [place] 00 (two) Medical times Branch daily. Safe for the face. ketoconazol 2-0 Yes [id number] Apply to [facility] e 2 % cream 7-14 area(s) 2 ity of 00:00: (two) [place] 00 times Medical daily. Branch hydrocortis 2022-0 Yes [id number] Apply to [facility] one 2.5 % 7-14 affected ity of cream 00:00: area(s) 2 [place] (two) Medical times Branch daily. Safe for the face. ketoconazol 2-0 Yes [id number] Apply to [facility] e 2 % cream 7-14 area(s) 2 ity of 00:00: (two) [place] 00 times Medical daily. Branch hydrocortis 2021-0 Yes [id number] Apply to [facility] one 2.5 % 7-14 affected ity of cream 00:00: area(s) 2 [place] (two) Medical times Branch daily. Safe for the face. ketoconazol 2-0 Yes [id number] Apply to [facility] e 2 % cream 7-14 area(s) 2 ity of 00:00: (two) [place] 00 times Medical daily. Branch hydrocortis 2-0 Yes [id number] Apply to [facility] one 2.5 % 7-14 affected ity of cream 00:00: area(s) 2 [place] 00 (two) Medical times Branch daily. Safe for the face. ketoconazol 2022-0 Yes [id number] Apply to [facility] e 2 % cream 7-14 area(s) 2 ity of 00:00: (two) [place] 00 times Medical daily. Branch hydrocortis 2022-0 Yes [id number] Apply to [facility] one 2.5 % 7-14 affected ity of cream 00:00: area(s) 2 [place] 00 (two) Medical times Branch daily. Safe for the face. ketoconazol 2022-0 Yes [id number] Apply to [facility] e 2 % cream 7-14 area(s) 2 ity of 00:00: (two) [place] 00 times Medical daily. Branch hydrocortis 2021-0 Yes [id number] Apply to [facility] one 2.5 % 7-14 affected ity of cream 00:00: area(s) 2 [place] 00 (two) Medical times Branch daily. Safe for the face. ketoconazol 2-0 Yes [id number] Apply to [facility] e 2 % cream 7-14 area(s) 2 ity of 00:00: (two) [place] 00 times Medical daily. Branch hydrocortis 2021-0 Yes [id number] Apply to [facility] one 2.5 % 7-14 affected ity of cream 00:00: area(s) 2 [place] 00 (two) Medical times Branch daily. Safe for the face. ketoconazol 2-0 Yes [id number] Apply to [facility] e 2 % cream 7-14 area(s) 2 ity of 00:00: (two) [place] 00 times Medical daily. Branch hydrocortis 2021-0 Yes [id number] Apply to [facility] one 2.5 % 7-14 affected ity of cream 00:00: area(s) 2 [place] 00 (two) Medical times Branch daily. Safe for the face. ketoconazol 2021-0 Yes [id number] Apply to [facility] e 2 % cream 7-14 area(s) 2 ity of 00:00: (two) [place] 00 times Medical daily. Branch hydrocortis 2021-0 Yes [id number] Apply to [facility] one 2.5 % 7-14 affected ity of cream 00:00: area(s) 2 [place] 00 (two) Medical times Branch daily. Safe for the face. ketoconazol 2-0 Yes [id number] Apply to [facility] e 2 % cream 7-14 area(s) 2 ity of 00:00: (two) [place] 00 times Medical daily. Branch hydrocortis 2021-0 Yes [id number] Apply to [facility] one 2.5 % 7-14 affected ity of cream 00:00: area(s) 2 [place] 00 (two) Medical times Branch daily. Safe for the face. acetaminoph 2021-0 Yes 1{tbl} Take 1 Un cl[place]ia en-codeine 6-14 tablet by ity of 300-30 mg 10:16: mouth [place] tablet 20 every 6 Medical (six) Branch hours as needed. acetaminoph 2-0 Yes 1{tbl} Take 1 Un [place] en-codeine 6-14 tablet by ity of 300-30 mg 10:16: mouth [place] tablet 20 every 6 Medical (six) Branch hours as needed. acetaminoph 2-0 Yes 1{tbl} Take 1 Un [place] en-codeine 6-14 tablet by ity of 300-30 mg 10:16: mouth [place] tablet 20 every 6 Medical (six) Branch hours as needed. acetaminoph 2022-0 Yes 1{tbl} Take 1 Un [place] en-codeine 6-14 tablet by ity of 300-30 mg 10:16: mouth [place] tablet 20 every 6 Medical (six) Branch hours as needed. acetaminoph 2-0 Yes 1{tbl} Take 1 Un [place] en-codeine 6-14 tablet by ity of 300-30 mg 10:16: mouth [place] tablet 20 every 6 Medical (six) Branch hours as needed. pregabalin 2021-0 Yes 75mg Take 75 mg U nivers 75 mg 6-14 by mouth 2 ity of capsule 10:14: (two) [place] 32 times Medical daily. Branch FLUTICASONE 2021-0 Yes 50ug Use 50 mcg [facility] PROPIONATE 6-14 in each ity of NASAL 10:14: nostril [place] 32 once daily Medical as needed Branch for Other (allergies ). ALBUTEROL 2021-0 Yes 8.5mg Inhale 8.5 U nivers INHALE 6-14 mg every 4 ity of 10:14: (four) [place] 32 hours as Medical needed Branch (wheezing) . pregabalin 2-0 Yes 75mg Take 75 mg U nivers 75 mg 6-14 by mouth 2 ity of capsule 10:14: (two) [place] 32 times Medical daily. Branch FLUTICASONE 2021-0 Yes 50ug Use 50 mcg [facility] PROPIONATE 6-14 in each ity of NASAL 10:14: nostril [place] 32 once daily Medical as needed Branch for Other (allergies ). ALBUTEROL 2021-0 Yes 8.5mg Inhale 8.5 U nivers INHALE [...] as Medical needed Branch (wheezing) . budesonide- 2-0 Yes 2{puff} Inhale 2 [facility] formoteroL 6-14 Puffs. ity of 160-4.5 09:49: [place] mcg/actuati 26 Medical on inhaler Branch budesonide- 2022-0 Yes 2{puff} Inhale 2 [facility] formoteroL 6-14 [...] TWICE Medical inhalation DAILY Branch disk ADVAIR 2022-0 Yes INHALE 1 [facility] DISKUS 6-09 DOSE [...] TWICE Medical inhalation DAILY Branch disk ADVAIR 2022-0 Yes INHALE 1 [facility] DISKUS 6-09 DOSE [...] TWICE Medical inhalation DAILY Branch disk ADVAIR 2022-0 Yes INHALE 1 [facility] DISKUS 6-09 DOSE [...] inhalation DAILY Branch disk ADVAIR 0 Yes 1{puff} Take 1 Univer [...] in the evening. Am and HS ADVAIR 202-0 Yes 1{puff} Take 1 Un[facility] s DISKUS 6-09 Puff in ity of 500-50 00:00: the [place] mcg/dose 00 morning Medical inhalation and 1 Puff Bra nch disk in the evening. Am and HS ADVAIR 202-0 Yes 1{puff} Take 1 Un[facility] s DISKUS [...] TWICE Medical inhalation DAILY Branch disk ADVAIR 2022-0 Yes INHALE 1 [facility] DISKUS 6-09 DOSE BY ity of 500-50 00:00: MOUTH [place] mcg/dose 00 TWICE Medical inhalation DAILY Branch disk ADVAIR 2021-0 Yes INHALE 1 [facility] DISKUS 6-09 DOSE BY ity of 500-50 00:00: MOUTH [place] mcg/dose 00 TWICE Medical inhalation DAILY Branch disk rizatriptan 2021-0 Yes DISSOLVE 1 [facility] 10 [...] Medic al NEEDED FOR Branch MIGRAINES rizatriptan 2022-0 Yes DISSOLVE 1 [facility] 10 mg 6-02 [...] Medic al NEEDED FOR Branch MIGRAINES rizatriptan Yes DISSOLVE 1 [facility] 10 mg [...] al NEEDED FOR Branch MIGRAINES rizatriptan 0 2022- No DISSOLVE 1 [facility] 10 mg 6-02 -27 TABLET IN ity of disintegrat 00:00: 00:00 MOUTH ONCE [place] ing tablet 00 :00 DAILY Medic al NEEDED FOR Branch MIGRAINES rizatriptan 2021-0 2022- No DISSOLVE 1 [facility] 10 mg 6-02 -27 TABLET IN ity of disintegrat 00:00: 00:00 MOUTH ONCE [place] ing tablet 00 :00 DAILY Medic al NEEDED FOR Branch MIGRAINES rizatriptan 2021-0 2022- No DISSOLVE 1 [facility] 10 mg 6-02 -27 TABLET IN ity of disintegrat 00:00: 00:00 MOUTH ONCE [place] ing tablet 00 :00 DAILY Medic al NEEDED FOR Branch MIGRAINES rizatriptan 2021-0 2022- No DISSOLVE 1 [facility] 10 mg 6-02 -27 TABLET IN ity of disintegrat 00:00: 00:00 MOUTH ONCE [place] ing tablet 00 :00 DAILY Medic al NEEDED FOR Branch MIGRAINES omeprazole 2021-0 Yes 40mg Take 40 mg [facility] nivers 40 mg 6-01 by mouth ity of capsule 00:00: daily. [place] [facility] omeprazole 2-0 Yes 40mg Take 40 mg [facility] n[facility] 40 mg 6-01 by mouth ity of capsule 00:00: daily. [place] [facility] omeprazole 2-0 Yes 40mg Take 40 mg [facility] n[facility] 40 mg 6-01 by mouth ity of capsule 00:00: daily. [place] [facility] omeprazole 2-0 Yes 40mg Take 40 mg [facility] 40 mg 6-01 by mouth ity of capsule 00:00: daily. [place] [facility] omeprazole 2-0 Yes 40mg Take 40 mg [facility] 40 mg 6-01 by mouth ity of capsule 00:00: daily. [place] [facility] omeprazole 2-0 Yes 40mg Take 40 mg [facility] 40 mg 6-01 by mouth ity of capsule 00:00: daily. [place] [facility] omeprazole 2-0 Yes 40mg Take 40 mg [facility] n[facility] 40 mg 6-01 by mouth ity of capsule 00:00: daily. [place] [facility] omeprazole 2-0 Yes 40mg Take 40 mg U nivers 40 mg 6-01 by mouth ity of capsule 00:00: daily. [place] [facility] omeprazole 2-0 Yes 40mg Take 40 mg U nivers 40 mg 6-01 by mouth ity of capsule 00:00: daily. [place] [facility] omeprazole 2-0 Yes 40mg Take 40 mg U n[facility] 40 mg 6-01 by mouth ity of capsule 00:00: daily. [place] [facility] omeprazole 2-0 2022- No 40mg Take 40 mg [facility] 40 mg 6-01 09 by mouth ity of capsule 00:00: 00:00 daily. [place] 00 :00 Medical Branch omeprazole 2022-0 2022- No 40mg Take 40 mg [facility] 40 mg 6-01 -09 by mouth ity of capsule 00:00: 00:00 daily. [place] 00 :00 Medical Branch EUTHYROX 2021-0 Yes 137ug Take 137 Univ ers 137 mcg 5-31 mcg by ity of tablet 00:00: mouth. Medical Branch EUTHYROX 2-0 Yes 137ug Take 137 Univ ers 137 mcg 5-31 mcg by ity of tablet 00:00: mouth. Medical Branch EUTHYROX 2-0 Yes 137ug Take 137 Univ ers 137 mcg 5-31 mcg by ity of tablet 00:00: mouth. Medical Branch EUTHYROX 2-0 Yes 137ug Take 137 Univ ers 137 mcg 5-31 mcg by ity of tablet 00:00: mouth. Medical Branch EUTHYROX 2-0 Yes 137ug Take 137 Univ ers 137 mcg 5-31 mcg by ity of tablet 00:00: mouth. [place] [facility] EUTHYROX 2-0 Yes 137ug Take 137 Univ ers 137 mcg 5-31 mcg by ity of tablet 00:00: mouth. Medical Branch EUTHYROX 2-0 Yes 137ug Take 137 Univ ers 137 mcg 5-31 mcg by ity of tablet 00:00: mouth. [place] [facility] EUTHYROX 2-0 Yes 137ug Take 137 Univ ers 137 mcg 5-31 mcg by ity of tablet 00:00: mouth. [place] [facility] EUTHYROX 2-0 Yes 137ug Take 137 Univ ers 137 mcg 5-31 mcg by ity of tablet 00:00: mouth. Medical Branch EUTHYROX 2-0 Yes 137ug Take 137 Univ ers 137 mcg 5-31 mcg by ity of tablet 00:00: mouth. [place] [facility] EUTHYROX 2-0 Yes 137ug Take 137 Univ ers 137 mcg 5-31 mcg by ity of tablet 00:00: mouth. [place] [facility] EUTHYROX 2-0 Yes 137ug Take 137 Univ ers 137 mcg 5-31 mcg by ity of tablet 00:00: mouth at [place] [address] bedtime. Medical Branch EUTHYROX 2-0 Yes 137ug Take 137 Univ ers 137 mcg 5-31 mcg by ity of tablet 00:00: mouth at [place] [address] bedtime. Medical Branch EUTHYROX 2022-0 Yes 137ug Take 137 Univ ers 137 mcg 5-31 mcg by ity of tablet 00:00: mouth at [place] [address] bedtime. Medical Branch EUTHYROX 2022-0 Yes 137ug Take 137 Univ ers 137 mcg 5-31 mcg by ity of tablet 00:00: mouth at [place] [address] bedtime. Medical Branch EUTHYROX 2-0 Yes 137ug Take 137 Univ ers 137 mcg 5-31 mcg by ity of tablet 00:00: mouth at [place] [address] bedtime. Medical Branch EUTHYROX 2-0 Yes 137ug Take 137 Univ ers 137 mcg 5-31 mcg by ity of tablet 00:00: mouth at [place] [address] bedtime. Medical Branch EUTHYROX 2-0 Yes 137ug Take 137 Univ ers 137 mcg 5-31 mcg by ity of tablet 00:00: mouth at [place] [address] bedtime. Medical Branch EUTHYROX 2-0 Yes 137ug Take 137 [facility] ers 137 mcg 5-31 mcg by ity of tablet 00:00: mouth at [place] [address] bedtime. Medical Branch EUTHYROX 2-0 Yes 137ug Take 137 [facility] ers 137 mcg 5-31 mcg by ity of tablet 00:00: mouth at [place] [address] bedtime. Medical Branch EUTHYROX 2-0 Yes 137ug Take 137 [facility] ers 137 mcg 5-31 mcg by ity of tablet 00:00: mouth at [place] [address] bedtime. Medical Branch EUTHYROX 2-0 Yes 137ug Take 137 Univ ers 137 mcg 5-31 mcg by ity of tablet 00:00: mouth at [place] [address] bedtime. Medical Branch EUTHYROX 2-0 Yes 137ug Take 137 Univ ers 137 mcg 5-31 mcg by ity of tablet 00:00: mouth at [place] [address] bedtime. Medical Branch EUTHYROX 2-0 Yes 137ug Take 137 Univ ers 137 mcg 5-31 mcg by ity of tablet 00:00: mouth at [place] [address] bedtime. Medical Branch EUTHYROX 2-0 Yes 137ug Take 137 [facility] ers 137 mcg 5-31 mcg by ity of tablet 00:00: mouth at [place] [address] bedtime. Medical Branch EUTHYROX 2-0 Yes 137ug Take 137 Univ ers 137 mcg 5-31 mcg by ity of tablet 00:00: mouth at [place] [address] bedtime. Medical Branch EUTHYROX 2-0 Yes 137ug Take 137 Univ ers 137 mcg 5-31 mcg by ity of tablet 00:00: mouth at [place] [address] bedtime. Medical Branch EUTHYROX 2-0 Yes 137ug Take 137 Univ ers 137 mcg 5-31 mcg by ity of tablet 00:00: mouth at [place] [address] bedtime. Medical Branch EUTHYROX 2-0 Yes 137ug Take 137 Univ ers 137 mcg 5-31 mcg by ity of tablet 00:00: mouth at [place] [address] bedtime. Medical Branch EUTHYROX 2-0 Yes 137ug Take 137 Univ ers 137 mcg 5-31 mcg by ity of tablet 00:00: mouth at [place] [address] bedtime. Medical Branch EUTHYROX 2-0 Yes 137ug Take 137 Univ ers 137 mcg 5-31 mcg by ity of tablet 00:00: mouth at [place] [address] bedtime. Medical Branch EUTHYROX 2-0 Yes 137ug Take 137 Univ ers 137 mcg 5-31 mcg by ity of tablet 00:00: mouth at [place] [address] bedtime. Medical Branch EUTHYROX 2-0 Yes 137ug Take 137 Univ ers 137 mcg 5-31 mcg by ity of tablet 00:00: mouth at [place] [address] bedtime. Medical Branch EUTHYROX 2-0 Yes 137ug Take 137 Univ ers 137 mcg 5-31 mcg by ity of tablet 00:00: mouth at [place] [address] bedtime. Medical Branch EUTHYROX 2-0 Yes 137ug Take 137 Univ ers 137 mcg 5-31 mcg by ity of tablet 00:00: mouth at [place] [address] bedtime. Medical Branch EUTHYROX 2-0 Yes 137ug Take 137 Univ ers 137 mcg 5-31 mcg by ity of tablet 00:00: mouth at [place] [address] bedtime. Medical Branch EUTHYROX 2-0 Yes 137ug Take 137 Univ ers 137 mcg 5-31 mcg by ity of tablet 00:00: mouth at [place] [address] bedtime. Medical Branch EUTHYROX 2-0 Yes 137ug Take 137 Univ ers 137 mcg 5-31 mcg by ity of tablet 00:00: mouth at [place] [address] bedtime. Medical Branch EUTHYROX 2-0 Yes 137ug Take 137 Univ ers 137 mcg 5-31 mcg by ity of tablet 00:00: mouth at [place] [address] bedtime. Medical Branch EUTHYROX 2-0 Yes 137ug Take 137 Univ ers 137 mcg 5-31 mcg by ity of tablet 00:00: mouth at [place] [address] bedtime. Medical Branch EUTHYROX 2-0 Yes 137ug Take 137 Univ ers 137 mcg 5-31 mcg by ity of tablet 00:00: mouth at [place] [address] bedtime. Medical Branch EUTHYROX 2-0 Yes 137ug Take 137 Univ ers 137 mcg 5-31 mcg by ity of tablet 00:00: mouth at [place] [address] bedtime. Medical Branch EUTHYROX 2-0 Yes 137ug Take 137 Univ ers 137 mcg 5-31 mcg by ity of tablet 00:00: mouth at [place] [address] bedtime. Medical Branch EUTHYROX 2-0 Yes 137ug Take 137 Univ ers 137 mcg 5-31 mcg by ity of tablet 00:00: mouth at [place] [address] bedtime. Medical Branch EUTHYROX 2-0 Yes 137ug Take 137 Univ ers 137 mcg 5-31 mcg by ity of tablet 00:00: mouth at [place] [address] bedtime. Medical Branch EUTHYROX 2-0 Yes 137ug Take 137 Univ ers 137 mcg 5-31 mcg by ity of tablet 00:00: mouth at [place] [address] bedtime. Medical Branch EUTHYROX 2-0 Yes 137ug Take 137 Univ ers 137 mcg 5-31 mcg by ity of tablet 00:00: mouth at [place] [address] bedtime. Medical Branch EUTHYROX 2-0 Yes 137ug Take 137 Univ ers 137 mcg 5-31 mcg by ity of tablet 00:00: mouth at [place] [address] bedtime. Medical Branch EUTHYROX 2-0 Yes 137ug Take 137 Univ ers 137 mcg 5-31 mcg by ity of tablet 00:00: mouth at [place] [address] bedtime. Medical Branch EUTHYROX 2-0 Yes 137ug Take 137 Univ ers 137 mcg 5-31 mcg by ity of tablet 00:00: mouth at [place] [address] bedtime. Medical Branch EUTHYROX 2-0 Yes 137ug Take 137 Univ ers 137 mcg 5-31 mcg by ity of tablet 00:00: mouth at [place] [address] bedtime. Medical Branch EUTHYROX 2-0 Yes 137ug Take 137 Univ ers 137 mcg 5-31 mcg by ity of tablet 00:00: mouth at [place] [address] bedtime. Medical Branch EUTHYROX 2-0 Yes 137ug Take 137 Univ ers 137 mcg 5-31 mcg by ity of tablet 00:00: mouth at [place] [address] bedtime. Medical Branch EUTHYROX 2-0 Yes 137ug Take 137 Univ ers 137 mcg 5-31 mcg by ity of tablet 00:00: mouth at [place] [address] bedtime. Medical Branch EUTHYROX 2-0 Yes 137ug Take 137 Univ ers 137 mcg 5-31 mcg by ity of tablet 00:00: mouth at [place] [address] bedtime. Medical Branch EUTHYROX 2021-0 Yes 137ug Take 137 Univ ers 137 mcg 5-31 mcg by ity of tablet 00:00: mouth at [place] [address] bedtime. Medical Branch EUTHYROX 2021-0 Yes 137ug Take 137 Univ ers 137 mcg 5-31 mcg by ity of tablet 00:00: mouth at [place] [address] bedtime. Medical Branch EUTHYROX 2021-0 Yes 137ug Take 137 Univ ers 137 mcg 5-31 mcg by ity of tablet 00:00: mouth at [place] [address] bedtime. Medical Branch EUTHYROX 2021-0 Yes 137ug Take 137 Univ ers 137 mcg 5-31 mcg by ity of tablet 00:00: mouth at [place] [address] bedtime. Medical Branch EUTHYROX 2021-0 Yes 137ug Take 137 Univ ers 137 mcg 5-31 mcg by ity of tablet 00:00: mouth at [place] [address] bedtime. Medical Branch EUTHYROX 2021-0 Yes 137ug Take 137 Univ ers 137 mcg 5-31 mcg by ity of tablet 00:00: mouth at [place] [address] bedtime. Medical Branch EUTHYROX 2021-0 Yes 137ug Take 137 Univ ers 137 mcg 5-31 mcg by ity of tablet 00:00: mouth at [place] [address] bedtime. Medical Branch EUTHYROX 2021-0 Yes 137ug Take 137 Univ ers 137 mcg 5-31 mcg by ity of tablet 00:00: mouth at [place] [address] bedtime. Medical Branch EUTHYROX 2021-0 Yes 137ug Take 137 Univ ers 137 mcg 5-31 mcg by ity of tablet 00:00: mouth at [place] [address] bedtime. Medical Branch EUTHYROX 2021-0 Yes 137ug Take 137 Univ ers 137 mcg 5-31 mcg by ity of tablet 00:00: mouth at [place] [address] bedtime. Medical Branch EUTHYROX 2-0 Yes 137ug Take 1 Univer s 137 mcg 5-31 tablet by ity of tablet 00:00: mouth at [place] [address] bedtime. Medical Takes at [place] night per patient EUTHYROX 2-0 Yes 137ug Take 1 Univer s 137 mcg 5-31 tablet by ity of tablet 00:00: mouth at [place] [address] bedtime. Medical Takes at Branch night per patient EUTHYROX 2022-0 Yes 137ug Take 1 Univer s 137 mcg 5-31 tablet by ity of tablet 00:00: mouth at [place] [address] bedtime. Medical Takes at Branch night per patient EUTHYROX 2-0 Yes 137ug Take 1 Univer s 137 mcg 5-31 tablet by ity of tablet 00:00: mouth at [place] [address] bedtime. Medical Takes at Branch night per patient EUTHYROX 2-0 Yes 137ug Take 1 Univer s 137 mcg 5-31 tablet by ity of tablet 00:00: mouth at [place] [address] bedtime. Medical Takes at Branch night per patient EUTHYROX 2021-0 Yes 137ug Take 1 Univer s 137 mcg 5-31 tablet by ity of tablet 00:00: mouth at [place] [address] bedtime. Medical Takes at Branch night per patient EUTHYROX 2-0 Yes 137ug Take 1 Un[facility] s 137 mcg 5-31 tablet by ity of tablet 00:00: mouth at [place] [address] bedtime. Medical Takes at Branch night per patient EUTHYROX 2-0 Yes 137ug Take 1 Un[facility] s 137 mcg 5-31 tablet by ity of tablet 00:00: mouth at [place] [address] bedtime. Medical Takes at Branch night per patient EUTHYROX 2021-0 Yes 137ug Take 1 Un[facility] s 137 mcg 5-31 tablet by ity of tablet 00:00: mouth at [place] [address] bedtime. Medical Takes at Branch night per patient EUTHYROX 2-0 Yes 137ug Take 137 Univ ers 137 mcg 5-31 mcg by ity of tablet 00:00: mouth. Medical Branch EUTHYROX 2-0 Yes 137ug Take 137 [facility] ers 137 mcg 5-31 mcg by ity of tablet 00:00: mouth. Medical Branch EUTHYROX 2021-0 Yes 137ug Take 137 [facility] ers 137 mcg 5-31 mcg by ity of tablet 00:00: mouth. Medical Branch EUTHYROX 2021-0 Yes 137ug Take 137 Univ ers 137 mcg 5-31 mcg by ity of tablet 00:00: mouth. Medical Branch EUTHYROX 2-0 Yes 137ug Take 137 Univ ers 137 mcg 5-31 mcg by ity of tablet 00:00: mouth. Medical Branch EUTHYROX 2021-0 Yes 137ug Take 137 Univ ers 137 mcg 5-31 mcg by ity of tablet 00:00: mouth. Medical Branch EUTHYROX 2022-0 Yes 137ug Take 137 Univ ers 137 mcg 5-31 mcg by ity of tablet 00:00: mouth. Medical Branch EUTHYROX 2022-0 Yes 137ug Take 137 Univ ers 137 mcg 5-31 mcg by ity of tablet 00:00: mouth. Medical Branch EUTHYROX 2022-0 Yes 137ug Take 137 Univ ers 137 mcg 5-31 mcg by ity of tablet 00:00: mouth. Medical Branch EUTHYROX 2022-0 Yes 137ug Take 137 Univ ers 137 mcg 5-31 mcg by ity of tablet 00:00: mouth. Medical Branch EUTHYROX 2022-0 Yes 137ug Take 137 Univ ers 137 mcg 5-31 mcg by ity of tablet 00:00: mouth. Medical Branch EUTHYROX 2022-0 2023- No 137ug Take 1 Unive rs 137 mcg 5-31 04-14 tablet by ity of tablet 00:00: 00:00 mouth at [place] 00 :00 bedtime. Medical Takes at Branch night per patient EUTHYROX 2022-0 2023- No 137ug Take 1 Unive rs 137 mcg 5-31 04-14 tablet by ity of tablet 00:00: 00:00 mouth at [place] 00 :00 bedtime. Medical Takes at Branch night per patient EUTHYROX 2022-0 2023- No 137ug Take 1 Unive rs 137 mcg 5-31 04-14 tablet by ity of tablet 00:00: 00:00 mouth at [place] 00 :00 bedtime. Medical Takes at Branch night per patient cyclobenzap 2022-0 Yes 10mg 10 mg 3 Uni vers rine 10 mg 4-21 (three) ity of tablet 00:00: times [place] 00 daily as Medical needed. Branch cyclobenzap 2-0 Yes 10mg 10 mg 3 Uni vers rine 10 mg 4-21 (three) ity of tablet 00:00: times [place] 00 daily as Medical needed. Branch cyclobenzap 2022-0 Yes 10mg 10 mg 3 Uni vers rine 10 mg 4-21 (three) ity of tablet 00:00: times [place] 00 daily as Medical needed. Branch cyclobenzap [...] daily as Medical needed. Branch cyclobenzap 2022-0 2022- No 10mg 10 mg 3 Un claudia rine 10 mg 4-21 10- (three) ity o f tablet 00:00: 00:00 times [place] 00 :00 daily as Medical needed. Branch cyclobenzap 2022-0 2022- No 10mg 10 mg 3 Un claudia rine 10 mg 4-21 10-09 (three) ity o f tablet 00:00: 00:00 times [place] 00 :00 daily as Medical needed. Branch ZOLMitripta 2022-0 Yes 1 tab(s) Un claudia n (ZOMIG) 5 4-08 ity of mg nasal 00:00: [place] solution 00 Medical Branch ZOLMitripta 2022-0 Yes 1 tab(s) Un claudia n (ZOMIG) 5 4-08 ity of mg nasal 00:00: [place] solution 00 Medical Branch ZOLMitripta 2022-0 Yes 1 tab(s) Un cl[facility]ia n (ZOMIG) 5 4-08 ity of mg nasal 00:00: [place] solution 00 Medical Branch ZOLMitripta 2-0 Yes 1 tab(s) Un claudia n (ZOMIG) [...] of nasal 00:00: [place] solution Medical Branch bromphenira 2022-0 Yes 10 mL Unive rs mine-pseudo 1-25 ity of ephedrine-D 00:00: [facility] Medical mg/5 mL Branch syrup bromphenira 2022-0 Yes 10 mL Unive rs mine-pseudo 1-25 ity of ephedrine-D 00:00: [facility] Medical mg/5 mL Branch syrup bromphenira 2022-0 Yes 10 mL Unive rs mine-pseudo 1-25 ity of ephedrine-D 00:00: [facility] Medical mg/5 mL Branch syrup bromphenira 2022-0 Yes 10 mL Unive rs mine-pseudo 1-25 ity of ephedrine-D 00:00: [facility] Medical mg/5 mL Branch syrup bromphenira 2022-0 Yes 10 mL Unive rs mine-pseudo 1-25 ity of ephedrine-D 00:00: [facility] Medical mg/5 mL Branch syrup bromphenira 2022-0 Yes 10 mL Unive rs mine-pseudo 1-25 ity of ephedrine-D 00:00: [facility] Medical mg/5 mL Branch syrup bromphenira 2022-0 Yes 10 mL Unive rs mine-pseudo 1-25 ity of ephedrine-D 00:00: [facility] Medical mg/5 mL Branch syrup bromphenira 2022-0 Yes 10 mL Unive rs mine-pseudo 1-25 ity of ephedrine-D 00:00: [facility] Medical mg/5 mL Branch syrup bromphenira 2022-0 Yes 10 mL Unive rs mine-pseudo 1-25 ity of ephedrine-D 00:00: [facility] Medical mg/5 mL Branch syrup bromphenira 2022-0 Yes 10 mL Unive rs mine-pseudo 1-25 ity of ephedrine-D 00:00: [facility] Medical mg/5 mL Branch syrup bromphenira 2022-0 Yes 10 mL Unive rs mine-pseudo 1-25 ity of ephedrine-D 00:00: [facility] Medical mg/5 mL Branch syrup bromphenira 2022-0 Yes 10 mL Unive rs mine-pseudo 1-25 ity of ephedrine-D 00:00: [facility] Medical mg/5 mL Branch syrup bromphenira 2022-0 Yes 10 mL Unive rs mine-pseudo 1-25 ity of ephedrine-D 00:00: [facility] Medical mg/5 mL Branch syrup bromphenira 2022-0 Yes 10 mL Unive rs mine-pseudo 1-25 ity of ephedrine-D 00:00: [facility] Medical mg/5 mL Branch syrup bromphenira 2022-0 Yes 10 mL Unive rs mine-pseudo 1-25 ity of ephedrine-D 00:00: [facility] Medical mg/5 mL Branch syrup bromphenira 2022-0 Yes 10 mL Unive rs mine-pseudo 1-25 ity of ephedrine-D 00:00: [facility] Medical mg/5 mL Branch syrup bromphenira 2022-0 Yes 10 mL Unive rs mine-pseudo 1-25 ity of ephedrine-D 00:00: [facility] Medical mg/5 mL Branch syrup bromphenira 2022-0 Yes 10 mL Unive rs mine-pseudo 1-25 ity of ephedrine-D 00:00: [facility] Medical mg/5 mL Branch syrup bromphenira 2022-0 2023- No 10 mL Univ ers mine-pseudo 1-25 04-12 ity of ephedrine-D 00:00: 00:00 [facility] 00 :00 Medical mg/5 mL Branch syrup bromphenira 2022-0 2023- No 10 mL Univ ers mine-pseudo 1-25 04-12 ity of ephedrine-D 00:00: 00:00 [facility] 00 :00 Medical mg/5 mL Branch syrup bromphenira 2022-0 2023- No 10 mL Univ ers mine-pseudo 1-25 04-12 ity of ephedrine-D 00:00: 00:00 [facility] 00 :00 Medical mg/5 mL Branch syrup divalproex 2020-08 Yes 250mg Take 250 Un [...] Branch Indication s: acute pain traMADoL 50 2021-0 Yes 4647 50mg 50 mg Unive rs [...] Indication s: acute pain traMADoL 50 2020-0 2- No 4647 50mg 50 mg Univ ers [...] by mouth ity of tablet 00:00: daily. [place] [facility] FLUoxetine 2020-0 Yes 10mg Take 10 mg U nivers 20 mg 7-21 by mouth ity of tablet 00:00: daily. [place] [facility] FLUoxetine 2020-0 Yes 10mg Take 10 mg U nivers 20 mg 7-21 by mouth ity of tablet 00:00: daily. [place] [facility] FLUoxetine 2020-0 Yes 10mg Take 10 mg U nivers 20 mg 7-21 by mouth ity of tablet 00:00: daily. [place] [facility] FLUoxetine 2020-0 Yes 10mg Take 10 mg U nivers 20 mg 7-21 by mouth ity of tablet 00:00: daily. [place] [facility] FLUoxetine 2020-0 Yes 10mg Take 10 mg U nivers 20 mg 7-21 by mouth ity of tablet 00:00: daily. [address] FLUoxetine 2021-0 Yes 10mg Take 10 mg U nivers 20 mg 7-21 by mouth ity of tablet 00:00: daily. [place] [facility] FLUoxetine 202-0 Yes 10mg Take 10 mg U nivers 20 mg 7-21 by mouth ity of tablet 00:00: daily. [place] [facility] FLUoxetine 2021-0 Yes 10mg Take 10 mg U nivers 20 mg 7-21 by mouth ity of tablet 00:00: daily. [place] [facility] FLUoxetine 202-0 Yes 10mg Take 10 mg U nivers 20 mg 7-21 by mouth ity of tablet 00:00: daily. [place] [facility] FLUoxetine 2021-0 Yes 10mg Take 10 mg U nivers 20 mg 7-21 by mouth ity of tablet 00:00: daily. [address] FLUoxetine 1-0 Yes 10mg Take 10 mg U nivers 20 mg 7-21 by mouth ity of tablet 00:00: daily. [address] FLUoxetine 1-0 Yes 10mg Take 10 mg U nivers 20 mg 7-21 by mouth ity of tablet 00:00: daily. [place] [facility] FLUoxetine 2020-0 Yes 10mg Take 10 mg U nivers 20 mg 7-21 by mouth ity of tablet 00:00: daily. [place] [facility] FLUoxetine 2021-0 Yes 10mg Take 10 mg U nivers 20 mg 7-21 by mouth ity of tablet 00:00: daily. [address] FLUoxetine 2021-0 Yes 10mg Take 10 mg U nivers 20 mg 7-21 by mouth ity of tablet 00:00: daily. [address] FLUoxetine 2021-0 Yes 10mg Take 10 mg U nivers 20 mg 7-21 by mouth ity of tablet 00:00: daily. [address] FLUoxetine 2021-0 Yes 10mg Take 10 mg U nivers 20 mg 7-21 by mouth ity of tablet 00:00: daily. [address] FLUoxetine 2021-0 Yes 10mg Take 10 mg U nivers 20 mg 7-21 by mouth ity of tablet 00:00: daily. [address] FLUoxetine 2021-0 Yes 10mg Take 10 mg U nivers 20 mg 7-21 by mouth ity of tablet 00:00: daily. [address] FLUoxetine 2021-0 Yes 10mg Take 10 mg U nivers 20 mg 7-21 by mouth ity of tablet 00:00: daily. [place] [facility] FLUoxetine 2021-0 Yes 10mg Take 10 mg U nivers 20 mg 7-21 by mouth ity of tablet 00:00: daily. [address] FLUoxetine 2021-0 Yes 10mg Take 10 mg U nivers 20 mg 7-21 by mouth ity of tablet 00:00: daily. [place] [facility] FLUoxetine 202-0 Yes 10mg Take 10 mg U nivers 20 mg 7-21 by mouth ity of tablet 00:00: daily. [address] FLUoxetine 2020-0 Yes 10mg Take 10 mg U nivers 20 mg 7-21 by mouth ity of tablet 00:00: daily. [address] FLUoxetine 2020-0 Yes 10mg Take 10 mg U nivers 20 mg 7-21 by mouth ity of tablet 00:00: daily. [address] FLUoxetine 202-0 Yes 10mg Take 10 mg U nivers 20 mg 7-21 by mouth ity of tablet 00:00: daily. [address] FLUoxetine 1-0 Yes 10mg Take 10 mg U nivers 20 mg 7-21 by mouth ity of tablet 00:00: daily. [address] FLUoxetine 2021-0 Yes 10mg Take 10 mg U nivers 20 mg 7-21 by mouth ity of tablet 00:00: daily. [address] FLUoxetine 2021-0 Yes 10mg Take 10 mg U nivers 20 mg 7-21 by mouth ity of tablet 00:00: daily. [address] FLUoxetine 2021-0 Yes 10mg Take 10 mg U nivers 20 mg 7-21 by mouth ity of tablet 00:00: daily. [address] FLUoxetine 2021-0 Yes 10mg Take 10 mg U nivers 20 mg 7-21 by mouth ity of tablet 00:00: daily. [address] FLUoxetine 2021-0 Yes 10mg Take 10 mg U nivers 20 mg 7-21 by mouth ity of tablet 00:00: daily. [address] FLUoxetine 2021-0 Yes 10mg Take 10 mg U nivers 20 mg 7-21 by mouth ity of tablet 00:00: daily. [address] FLUoxetine 2021-0 Yes 10mg Take 10 mg U nivers 20 mg 7-21 by mouth ity of tablet 00:00: daily. [address] FLUoxetine 2021-0 Yes 10mg Take 10 mg U nivers 20 mg 7-21 by mouth ity of tablet 00:00: daily. [place] [facility] FLUoxetine 2021-0 Yes 10mg Take 10 mg U nivers 20 mg 7-21 by mouth ity of tablet 00:00: daily. [address] FLUoxetine 2021-0 Yes 10mg Take 10 mg U nivers 20 mg 7-21 by mouth ity of tablet 00:00: daily. [address] FLUoxetine 2021-0 Yes 10mg Take 10 mg U nivers 20 mg 7-21 by mouth ity of tablet 00:00: daily. [address] FLUoxetine 2021-0 Yes 10mg Take 10 mg U nivers 20 mg 7-21 by mouth ity of tablet 00:00: daily. [address] FLUoxetine 2021-0 Yes 10mg Take 10 mg U nivers 20 mg 7-21 by mouth ity of tablet 00:00: daily. [address] FLUoxetine 2021-0 Yes 10mg Take 10 mg U nivers 20 mg 7-21 by mouth ity of tablet 00:00: daily. [address] FLUoxetine 2021-0 Yes 10mg Take 10 mg U nivers 20 mg 7-21 by mouth ity of tablet 00:00: daily. [address] FLUoxetine 2021-0 Yes 10mg Take 10 mg U nivers 20 mg 7-21 by mouth ity of tablet 00:00: daily. [address] FLUoxetine 2021-0 Yes 10mg Take 10 mg U nivers 20 mg 7-21 by mouth ity of tablet 00:00: daily. [address] FLUoxetine 2021-0 Yes 10mg Take 10 mg U nivers 20 mg 7-21 by mouth ity of tablet 00:00: daily. [address] FLUoxetine 2021-0 Yes 10mg Take 10 mg U nivers 20 mg 7-21 by mouth ity of tablet 00:00: daily. [address] FLUoxetine 2021-0 Yes 10mg Take 10 mg U nivers 20 mg 7-21 by mouth ity of tablet 00:00: daily. [address] FLUoxetine 2021-0 Yes 10mg Take 10 mg U nivers 20 mg 7-21 by mouth ity of tablet 00:00: daily. [address] FLUoxetine 2021-0 Yes 10mg Take 10 mg U nivers 20 mg 7-21 by mouth ity of tablet 00:00: daily. [place] [facility] FLUoxetine 2021-0 Yes 10mg Take 10 mg U nivers 20 mg 7-21 by mouth ity of tablet 00:00: daily. [place] [facility] FLUoxetine 202-0 Yes 10mg Take 10 mg U nivers 20 mg 7-21 by mouth ity of tablet 00:00: daily. [place] [facility] FLUoxetine 2021-0 Yes 10mg Take 10 mg U nivers 20 mg 7-21 by mouth ity of tablet 00:00: daily. [place] [facility] FLUoxetine 2020-0 Yes 10mg Take 10 mg U nivers 20 mg 7-21 by mouth ity of tablet 00:00: daily. [address] FLUoxetine 2020-0 Yes 10mg Take 10 mg U nivers 20 mg 7-21 by mouth ity of tablet 00:00: daily. [address] FLUoxetine 2020-0 Yes 10mg Take 10 mg U nivers 20 mg 7-21 by mouth ity of tablet 00:00: daily. [address] FLUoxetine 1-0 Yes 10mg Take 10 mg U nivers 20 mg 7-21 by mouth ity of tablet 00:00: daily. [address] FLUoxetine 1-0 Yes 10mg Take 10 mg U nivers 20 mg 7-21 by mouth ity of tablet 00:00: daily. [address] FLUoxetine 2020-0 Yes 10mg Take 10 mg U nivers 20 mg 7-21 by mouth ity of tablet 00:00: daily. [address] FLUoxetine 1-0 Yes 10mg Take 10 mg U nivers 20 mg 7-21 by mouth ity of tablet 00:00: daily. [address] FLUoxetine 2021-0 Yes 10mg Take 10 mg U nivers 20 mg 7-21 by mouth ity of tablet 00:00: daily. [address] FLUoxetine 2021-0 Yes 10mg Take 10 mg U nivers 20 mg 7-21 by mouth ity of tablet 00:00: daily. [address] FLUoxetine 2021-0 Yes 10mg Take 10 mg U nivers 20 mg 7-21 by mouth ity of tablet 00:00: daily. [place] 00 Medical Branch FLUoxetine 2021-0 Yes 10mg Take 10 mg U nivers 20 mg 7-21 by mouth ity of tablet 00:00: daily. [place] [facility] FLUoxetine 2021-0 Yes 10mg Take 10 mg U nivers 20 mg 7-21 by mouth ity of tablet 00:00: daily. [place] [facility] FLUoxetine 2021-0 Yes 10mg Take 0.5 Uni vers 20 mg 7-21 tablets by ity of tablet 00:00: mouth in [place] the Medical morning. Branch Takes at night per patient FLUoxetine 2021-0 Yes 10mg Take 0.5 Uni vers 20 mg 7-21 tablets by ity of tablet 00:00: mouth in [place] the Medical morning. Branch Takes at night per patient FLUoxetine 2021-0 Yes 10mg Take 0.5 Uni vers 20 mg 7-21 tablets by ity of tablet 00:00: mouth in [place] the Medical morning. Branch Takes at night per patient FLUoxetine 2021-0 Yes 10mg Take 0.5 Uni vers 20 mg 7-21 tablets by ity of tablet 00:00: mouth in [place] the Medical morning. Branch Takes at night per patient FLUoxetine 2021-0 Yes 10mg Take 0.5 Uni vers 20 mg 7-21 tablets by ity of tablet 00:00: mouth in [place] the Medical morning. Branch Takes at night per patient FLUoxetine 2021-0 Yes 10mg Take 0.5 Uni vers 20 mg 7-21 tablets by ity of tablet 00:00: mouth in [place] the Medical morning. Branch Takes at night per patient FLUoxetine 2021-0 Yes 10mg Take 0.5 Uni vers 20 mg 7-21 tablets by ity of tablet 00:00: mouth in [place] the Medical morning. Branch Takes at night per patient FLUoxetine 2021-0 Yes 10mg Take 0.5 Uni vers 20 mg 7-21 tablets by ity of tablet 00:00: mouth in [place] the Medical morning. Branch Takes at night per patient FLUoxetine 2021-0 Yes 10mg Take 0.5 Uni vers 20 mg 7-21 tablets by ity of tablet 00:00: mouth in [place] the Medical morning. Branch Takes at night per patient FLUoxetine 2021-0 Yes 10mg Take 0.5 Uni vers 20 mg 7-21 tablets by ity of tablet 00:00: mouth in [place] the Medical morning. Branch Takes at night per patient FLUoxetine 2021-0 Yes 10mg Take 0.5 Uni vers 20 mg 7-21 tablets by ity of tablet 00:00: mouth in [place] the morning. Branch Takes at night per patient FLUoxetine 2021-0 Yes 10mg Take 0.5 Uni vers 20 mg 7-21 tablets by ity of tablet 00:00: mouth in [place] the morning. Branch Takes at night per patient FLUoxetine 2021-0 Yes 10mg Take 0.5 Uni vers 20 mg 7-21 tablets by ity of tablet 00:00: mouth in [place] the morning. Branch Takes at night per patient FLUoxetine 2021-0 Yes 10mg Take 0.5 Uni vers 20 mg 7-21 tablets by ity of tablet 00:00: mouth in [place] the morning. Branch Takes at night per patient FLUoxetine 2021-0 Yes 10mg Take 0.5 Uni vers 20 mg 7-21 tablets by ity of tablet 00:00: mouth in [place] the morning. Branch Takes at night per patient FLUoxetine 2021-0 Yes 10mg Take 0.5 Uni vers 20 mg 7-21 tablets by ity of tablet 00:00: mouth in [place] the morning. Branch Takes at night per patient FLUoxetine 2021-0 Yes 10mg Take 0.5 Uni vers 20 mg 7-21 tablets by ity of tablet 00:00: mouth in [place] the morning. Branch Takes at night per patient FLUoxetine 2021-0 Yes 10mg Take 10 mg U nivers 20 mg 7-21 by mouth ity of tablet 00:00: daily. [address] FLUoxetine 2021-0 Yes 10mg Take 10 mg U nivers 20 mg 7-21 by mouth ity of tablet 00:00: daily. [address] FLUoxetine 2021-0 Yes 10mg Take 10 mg U nivers 20 mg 7-21 by mouth ity of tablet 00:00: daily. [address] FLUoxetine 2021-0 Yes 10mg Take 10 mg U nivers 20 mg 7-21 by mouth ity of tablet 00:00: daily. [address] FLUoxetine 2021-0 Yes 10mg Take 10 mg U nivers 20 mg 7-21 by mouth ity of tablet 00:00: daily. [address] FLUoxetine 2021-0 Yes 10mg Take 10 mg U nivers 20 mg 7-21 by mouth ity of tablet 00:00: daily. [address] FLUoxetine 2020-0 Yes 10mg Take 10 mg U nivers 20 mg 7-21 by mouth ity of tablet 00:00: daily. [address] FLUoxetine 2020-0 Yes 10mg Take 10 mg U nivers 20 mg 7-21 by mouth ity of tablet 00:00: daily. [address] FLUoxetine 2020-0 Yes 10mg Take 10 mg U nivers 20 mg 7-21 by mouth ity of tablet 00:00: daily. [address] FLUoxetine 2020-0 Yes 10mg Take 10 mg U nivers 20 mg 7-21 by mouth ity of tablet 00:00: daily. [address] FLUoxetine 2020- Yes 10mg Take 10 mg U nivers 20 mg 7-21 by mouth ity of tablet 00:00: daily. [address] FLUoxetine 2020-3- No 10mg Take 0.5 Un claudia 20 mg 7-21 05-11 tablets by ity of tablet 00:00: 00:00 mouth in [place] 00 :00 the Medical morning. Branch Takes at night per patient FLUoxetine 2020-0 3- No 10mg Take 0.5 Un claudia 20 mg 7-21 05-11 tablets by ity of tablet 00:00: 00:00 mouth in [place] 00 :00 the Medical morning. Branch Takes at night per patient FLUoxetine 2020-0 2023- No 10mg Take 0.5 Un [facility] 20 mg 7-21 05-11 tablets by ity of tablet 00:00: 00:00 mouth in [place] 00 :00 the Medical morning. Branch Takes at night per patient FLUoxetine 2020-0 3- No 10mg Take 0.5 Un cl[facility]ia 20 mg 7-21 05-11 tablets by ity of tablet 00:00: 00:00 mouth in [place] 00 :00 the Medical morning. Branch Takes [...] Immunizations Ordered Filled Immunization Date Status Comments [facility] e Immunization Name Name [facility] 2017-01-24 Completed University of 00:00: [facility] 2017-01-24 Completed University of 00:00: [facility] 2017-01-24 Completed University of :00: [facility] 2017-01-24 [facility]:00 [facility] 2017-01-24 [facility] 00:[facility]: [facility] 2017-01-24 Completed University of 00:00:00 [facility] TDAP 2017-01-24 Completed University of 00:00:00 [facility] TDAP 2017-01-24 Completed University of 00:00:00 [facility] TD 2017-01-24 Completed University of 00:00:00 [facility] TD 2017-01-24 Completed University of 00:00:00 [facility] TDAP 2017-01-24 Completed University of 00:00:00 [facility] TDAP 2017-01-24 Completed University of 00:00:00 [facility] TDAP 2017-01-24 Completed University of 00:00:00 [facility] TDAP 2017-01-24 Completed University of 00:00:00 [facility] TDAP 2017-01-24 Completed University of 00:00:00 [facility] TDAP 2017-01-24 Completed University of 00:00:00 [facility] TDAP 2017-01-24 Completed University of 00:00:00 [facility] TDAP 2017-01-24 Completed University of 00:00:00 [facility] TDAP 2017-01-24 Completed University of 00:00:00 [facility] TDAP 2017-01-24 Completed University of 00:00:00 [facility] TDAP 2017-01-24 Completed University of 00:00:00 [place] [facility] TDAP 2017-01-24 Completed University of 00:00:00 [place] [facility] TDAP 2017-01-24 Completed University of 00:00:00 [place] [facility] TDAP 2017-01-24 Completed University of 00:00:00 [facility] TDAP 2017-01-24 Completed University of 00:00:00 [facility] TDAP 2017-01-24 Completed University of 00:00:00 [place] [facility] TDAP 2017-01-24 Completed University of 00:00:00 [place] [facility] TDAP 2017-01-24 Completed University of 00:00:00 [place] [facility] TDAP 2017-01-24 Completed University of 00:00:00 [place] [facility] TDAP 2017-01-24 Completed University of 00:00:00 [facility] TDAP 2017-01-24 Completed University of 00:00:00 [facility] TDAP 2017-01-24 Completed University of 00:00:00 [facility] TDAP 2017-01-24 Completed University of 00:00:00 [facility] TDAP 2017-01-24 Completed University of 00:00:00 [facility] TDAP 2017-01-24 Completed University of 00:00:00 [facility] TDAP 2017-01-24 Completed University of 00:00:00 [facility] TDAP 2017-01-24 Completed University of 00:00:00 [facility] TDAP 2017-01-24 Completed University of 00:00:00 [facility] TDAP 2017-01-24 Completed University of 00:00:00 [facility] TDAP 2017-01-24 Completed University of 00:00:00 [facility] TDAP 2017-01-24 Completed University of 00:00:00 [facility] TDAP 2017-01-24 Completed University of 00:00:00 [place] [facility] TDAP 2017-01-24 Completed University of 00:00:00 [place] [facility] TDAP 2017-01-24 Completed University of 00:00:00 [place] [facility] TDAP 2017-01-24 Completed University of 00:00:00 [facility] TDAP 2017-01-24 Completed University of 00:00:00 [facility] TDAP 2017-01-24 Completed University of 00:00:00 [place] [facility] TDAP 2017-01-24 Completed University of 00:00:00 [facility] TDAP 2017-01-24 Completed University of 00:00:00 [facility] TDAP 2017-01-24 Completed University of 00:00:00 [place] [facility] TDAP 2017-01-24 Completed University of 00:00:00 [place] [facility] TDAP 2017-01-24 Completed University of 00:00:00 [facility] TDAP 2017-01-24 Completed University of 00:00:00 [facility] TDAP 2017-01-24 Completed University of 00:00:00 [place] [facility] TDAP 2017-01-24 Completed University of 00:00:00 [facility] TDAP 2017-01-24 Completed University of 00:00:00 [facility] TDAP 2017-01-24 Completed University of 00:00:00 [facility] TDAP 2017-01-24 Completed University of 00:00:00 [facility] TDAP 2017-01-24 Completed University of 00:00:00 [facility] TDAP 2017-01-24 Completed University of 00:00:00 [facility] TDAP 2017-01-24 Completed University of 00:00:00 [facility] TDAP 2017-01-24 Completed University of 00:00:00 [facility] TDAP 2017-01-24 Completed University of 00:00:00 [facility] TDAP 2017-01-24 Completed University of 00:00:00 [facility] TDAP 2017-01-24 Completed University of 00:00:00 [facility] TDAP 2017-01-24 Completed University of 00:00:00 [facility] TDAP 2017-01-24 Completed University of 00:00:00 [facility] TDAP 2017-01-24 Completed University of 00:00:00 [facility] TDAP 2017-01-24 Completed University of 00:00:00 [facility] TDAP 2017-01-24 Completed University of 00:00:00 [facility] TDAP 2017-01-24 Completed University of 00:00:00 [facility] TDAP 2017-01-24 Completed [facility] 00:00:00 [facility] TDAP 2017-01-24 Completed [facility] 00:00:00 [facility] TDAP 2017-01-24 Completed [facility] 00:00:00 [facility] TDAP 2017-01-24 Completed [facility] 00:00:00 [facility] TDAP 2017-01-24 Completed [facility] 00:00:00 [facility] TDAP 2017-01-24 Completed [facility] 00:00:00 [facility] TDAP 2017-01-24 Completed [facility] 00:00:00 [facility] TDAP 2017-01-24 Completed [facility] 00:00:00 [facility] TDAP 2017-01-24 Completed [facility] 00:00:00 [facility] TDAP 2017-01-24 Completed [facility] 00:00:00 [facility] TDAP 2017-01-24 Completed [facility] 00:00:00 [facility] TDAP 2017-01-24 Completed [facility] 00:00:00 [facility] TDAP 2017-01-24 Completed [facility] 00:00:00 [facility] TDAP 2017-01-24 Completed [facility] 00:00:00 [facility] TDAP 2017-01-24 Completed [facility] 00:00:00 [facility] TDAP 2017-01-24 Completed [facility] 00:00:00 [facility] TDAP 2017-01-24 Completed [facility] 00:00:00 [facility] TDAP 2017-01-24 Completed [facility] 00:00:00 [facility] TDAP 2017-01-24 Completed [facility] 00:00:00 [facility] TDAP 2017-01-24 Completed [facility] 00:00:00 [facility] TDAP 2017-01-24 Completed [facility] 00:00:00 [facility] TDAP 2017-01-24 Completed [facility] 00:00:00 [facility] TDAP 2017-01-24 Completed [facility] 00:00:00 [facility] TDAP 2017-01-24 Completed [facility] 00:00:00 [facility] TDAP 2017-01-24 Completed [facility] 00:00:00 [facility] TDAP 2017-01-24 Completed [facility] 00:00:00 [facility] TDAP 2017-01-24 Completed [facility] 00:00:00 [facility] TDAP 2017-01-24 Completed [facility] 00:00:00 [facility] TDAP 2017-01-24 Completed [facility] 00:00:00 [facility] TDAP 2017-01-24 Completed [facility] 00:00:00 [facility] TDAP 2017-01-24 Completed [facility] 00:00:00 [facility] TDAP 2017-01-24 Completed [facility] 00:00:00 [facility] TDAP 2010-08-07 Completed [facility] 00:00:00 [facility] TDAP 2010-08-07 Completed [facility] 00:00:00 [facility] TDAP 2010-08-07 Completed [facility] 00:00:00 [facility] TDAP 2010-08-07 Completed [facility] 00:00:00 [facility] TDAP 2010-08-07 Completed [facility] 00:00:00 [facility] TDAP 2010-08-07 Completed [facility] 00:00:00 [facility] TDAP 2010-08-07 Completed [facility] 00:00:00 [facility] TDAP 2010-08-07 Completed [facility] 00:00:00 [facility] TDAP 2010-08-07 Completed [facility] 00:00:00 [facility] TDAP 2010-08-07 Completed [facility] 00:00:00 [facility] TDAP 2010-08-07 Completed [facility] 00:00:00 [facility] TDAP 2010-08-07 Completed [facility] 00:00:00 [facility] TDAP 2010-08-07 Completed [facility] 00:00:00 [facility] TDAP 2010-08-07 Completed [facility] 00:00:00 [facility] TDAP 2010-08-07 Completed [facility] 00:00:00 [facility] TDAP 2010-08-07 Completed [facility] 00:00:00 [facility] TDAP 2010-08-07 Completed [facility] 00:00:00 [facility] TDAP 2010-08-07 Completed [facility] 00:00:00 [facility] TDAP 2010-08-07 Completed [facility] 00:00:00 [facility] TDAP 2010-08-07 Completed [facility] 00:00:00 [facility] TDAP 2010-08-07 Completed [facility] 00:00:00 [facility] TDAP 2010-08-07 Completed [facility] 00:00:00 [facility] TDAP 2010-08-07 Completed [facility] 00:00:00 [facility] TDAP 2010-08-07 Completed [facility] 00:00:00 [facility] TDAP 2010-08-07 Completed [facility] 00:00:00 [facility] TDAP 2010-08-07 Completed [facility] 00:00:00 [facility] TDAP 2010-08-07 Completed [facility] 00:00:00 [facility] TDAP 2010-08-07 Completed [facility] 00:00:00 [facility] TDAP 2010-08-07 Completed [facility] 00:00:00 [facility] TDAP 2010-08-07 Completed [facility] 00:00:00 [facility] TDAP 2010-08-07 Completed [facility] 00:00:00 [facility] TDAP 2010-08-07 Completed [facility] 00:00:00 [facility] TDAP 2010-08-07 Completed [facility] 00:00:00 [facility] TDAP 2010-08-07 Completed [facility] 00:00:00 [facility] TDAP 2010-08-07 Completed [facility] 00:00:00 [facility] TDAP 2010-08-07 Completed [facility] 00:00:00 [facility] TDAP 2010-08-07 Completed [facility] 00:00:00 [facility] TDAP 2010-08-07 Completed [facility] 00:00:00 [facility] TDAP 2010-08-07 Completed [facility] 00:00:00 [facility] TDAP 2010-08-07 Completed [facility] 00:00:00 [facility] TDAP 2010-08-07 Completed [facility] 00:00:00 [facility] TDAP 2010-08-07 Completed [facility] 00:00:00 [facility] TDAP 2010-08-07 Completed [facility] 00:00:00 [facility] TDAP 2010-08-07 Completed [facility] 00:00:00 [facility] TDAP 2010-08-07 Completed [facility] 00:00:00 [facility] TDAP 2010-08-07 Completed [facility] 00:00:00 [facility] TDAP 2010-08-07 Completed [facility] 00:00:00 [facility] TDAP 2010-08-07 Completed [facility] 00:00:00 [facility] TDAP 2010-08-07 Completed [facility] 00:00:00 [facility] TDAP 2010-08-07 Completed [facility] 00:00:00 [facility] TDAP 2010-08-07 Completed [facility] 00:00:00 [facility] TDAP 2010-08-07 Completed [facility] 00:00:00 [facility] TDAP 2010-08-07 Completed [facility] 00:00:00 [facility] TDAP 2010-08-07 Completed [facility] 00:00:00 [facility] TDAP 2010-08-07 Completed [facility] 00:00:00 [facility] TDAP 2010-08-07 Completed [facility] 00:00:00 [facility] TDAP 2010-08-07 Completed [facility] 00:00:00 [facility] TDAP 2010-08-07 Completed [facility] 00:00:00 [facility] TDAP 2010-08-07 Completed [facility] 00:00:00 [facility] TDAP 2010-08-07 Completed [facility] 00:00:00 [facility] TDAP 2010-08-07 Completed [facility] 00:00:00 [facility] TDAP 2010-08-07 Completed [facility] 00:00:00 [facility] TDAP 2010-08-07 Completed [facility] 00:00:00 [facility] TDAP 2010-08-07 Completed [facility] 00:00:00 [facility] TDAP 2010-08-07 Completed [facility] 00:00:00 [facility] TDAP 2010-08-07 Completed [facility] 00:00:00 [facility] TDAP 2010-08-07 Completed [facility] 00:00:00 [facility] TDAP 2010-08-07 Completed [facility] 00:00:00 [facility] TDAP 2010-08-07 Completed [facility] 00:00:00 [facility] TDAP 2010-08-07 Completed [facility] 00:00:00 [facility] TDAP 2010-08-07 Completed [facility] 00:00:00 [facility] TDAP 2010-08-07 Completed [facility] 00:00:00 [facility] TDAP 2010-08-07 Completed [facility] 00:00:00 [facility] TDAP 2010-08-07 Completed [facility] 00:00:00 [facility] TDAP 2010-08-07 Completed [facility] 00:00:00 [facility] TDAP 2010-08-07 Completed [facility] 00:00:00 [facility] TDAP 2010-08-07 Completed [facility] 00:00:00 [facility] TDAP 2010-08-07 Completed [facility] 00:00:00 [facility] TDAP 2010-08-07 Completed [facility] 00:00:00 [facility] TDAP 2010-08-07 Completed [facility] 00:00:00 [facility] TDAP 2010-08-07 Completed [facility] 00:00:00 [facility] TDAP 2010-08-07 Completed [facility] 00:00:00 [facility] TDAP 2010-08-07 Completed [facility] 00:00:00 [facility] TDAP 2010-08-07 Completed [facility] 00:00:00 [facility] TDAP 2010-08-07 Completed [facility] 00:00:00 [facility] TDAP 2010-08-07 Completed [facility] 00:00:00 [facility] TDAP 2010-08-07 Completed [facility] 00:00:00 [facility] TDAP 2010-08-07 Completed [facility] 00:00:00 [facility] TDAP 2010-08-07 Completed [facility] Com[facility] 00:00:00 [facility] 2010-08-07 Completed [facility] 00:00:00 [facility] 2010-08-07 Completed [facility] 00:00:00 [facility] 2010-08-07 Completed [facility] 00:00:00 [facility] 2010-08-07 Completed [facility] 00:00:00 [facility] 2010-08-07 Completed [facility] 00:00:00 [facility] 2010-08-07 Completed [facility] 00:00:00 [facility] Vital Signs Vital Name Observation Time Observation Value Comments Source Systolic blood 2023-02-17 149 mm[Hg] University of pressure 18:45:00 [facility] Diastolic blood 2023-02-17 95 mm[Hg] [facility] o f pressure 18:45:00 [facility] Heart rate 2023-02-17 85 /min [facility] 18:45:00 [facility] Oxygen saturation 2023-02-17 94 /min [facility] in Arterial blood 18:45:00 [facility] Pulse oximetry Branch Respiratory rate 2023-02-17 18 /min [facility] 18:27:35 [facility] Body temperature 2023-02-17 36.89 Diane University [facility] 16:58:00 [facility] Body height 2023-02-17 167.6 cm [facility] 16:58:00 [facility] Body weight 2023-02-17 102.059 kg University of 16:58:00 [facility] BMI 2023-02-17 36.32 kg/m2 [facility] 16:58:00 [facility] Systolic blood 2022-12-15 138 mm[Hg] [facility] pressure 13:12:00 [facility] Diastolic blood 2022-12-15 89 mm[Hg] University o f pressure 13:12:00 [facility] Heart rate 2022-12-15 89 /min [facility] 13:11:00 [facility] Body temperature 2022-12-15 36.72 Diane [facility] 13:11:00 [facility] Respiratory rate 2022-12-15 16 /min [facility] 13:11:00 [facility] Body height 2022-12-15 167.6 cm [facility] 13:11:00 [facility] Body weight 2022-12-15 102.286 kg [facility] 13:11:00 [facility] BMI 2022-12-15 36.40 kg/m2 [facility] 13:11:00 [facility] Oxygen saturation 2022-12-15 98 /min [facility] in Arterial blood 13:11:00 [facility] by Pulse oximetry Branch Systolic blood 2022-12-06 145 mm[Hg] Pt in severe University of pressure 15:20:00 pain, no [facility] Diastolic blood 2022-12-06 88 mm[Hg] Pt in severe University o f pressure 15:20:00 pain, no [facility] Heart rate 2022-12-06 99 /min [facility] 15:20:00 [facility] Respiratory rate 2022-12-06 12 /min [facility] 15:20:00 [facility] Body height 2022-12-06 165.1 cm [facility] 15:20:00 [facility] Body weight 2022-12-06 101.606 kg University [facility] 15:20:00 [facility] BMI 2022-12-06 37.28 kg/m2 [facility] 15:20:00 [facility] Oxygen saturation 2022-12-06 99 /min [facility] in Arterial blood 15:20:[address] [facility] by Pulse oximetry Branch Systolic blood 2022-11-16 141 mm[Hg] University of pressure 17:01:00 [facility] Diastolic blood 2022-11-16 98 mm[Hg] University o f pressure 17:01:00 [facility] Heart rate 2022-11-16 103 /min [facility] 16:57:00 [facility] Body temperature 2022-11-16 36.72 Diane [facility] 16:57:00 [facility] Respiratory rate 2022-11-16 17 /min [facility] 16:57:00 [facility] Body height 2022-11-16 165.1 cm [facility] 16:57:00 [facility] Body weight 2022-11-16 100.381 kg [facility] of 16:57:00 [facility] BMI 2022-11-16 36.83 kg/m2 [facility] 16:57:00 [facility] Oxygen saturation 2022-11-16 97 /min [facility] in Arterial blood 16:57:00 [facility] Pulse oximetry [facility] Systolic blood 2022-11-03 147 mm[Hg] [facility] pressure 15:04:00 [facility] Diastolic blood 2022-11-03 104 mm[Hg] [facility] o f pressure 15:04:00 [facility] Heart rate 2022-11-03 99 /min [facility] 15:03:00 [facility] Body temperature 2022-11-03 36.39 Diane [facility] 15:03:00 [facility] Body height 2022-11-03 167.6 cm [facility] 15:03:00 [facility] Body weight 2022-11-03 99.882 kg University of 15:03:00 [facility] BMI 2022-11-03 35.54 kg/m2 [facility] 15:03:00 [facility] Oxygen saturation 2022-11-03 99 /min [facility] in Arterial blood 15:03:[address] [facility] by Pulse oximetry Branch Systolic blood 2022-10-18 120 mm[Hg] [facility] of pressure 19:16:00 [facility] Diastolic blood 2022-10-18 77 mm[Hg] University o f pressure 19:16:00 [facility] Heart rate 2022-10-18 100 /min [facility] 19:16:00 [facility] Respiratory rate 2022-10-18 12 /min [facility] of 19:16:00 [facility] Body height 2022-10-18 167.6 cm [facility] 19:16:00 [facility] Body weight 2022-10-18 100.245 kg University of 19:16:00 [facility] BMI 2022-10-18 35.67 kg/m2 [facility] 19:16:00 [facility] Oxygen saturation 2022-10-18 98 /min [facility] in Arterial blood 19:16:[address] [facility] by Pulse oximetry Branch Systolic blood 2022-10-15 152 mm[Hg] [facility] of pressure 21:53:00 [facility] Diastolic blood 2022-10-15 87 mm[Hg] University o f pressure 21:53:00 [facility] Heart rate 2022-10-15 105 /min [facility] 21:53:00 [facility] Body temperature 2022-10-15 36.17 Diane [facility] 21:53:00 [facility] Respiratory rate 2022-10-15 19 /min [facility] of 21:53:00 [facility] Oxygen saturation 2022-10-15 92 /min [facility] in Arterial blood 21:53:00 [facility] Pulse oximetry [facility] Body height 2022-10-15 167.6 cm University of 01:50:00 [facility] Body weight 2022-10-15 100.245 kg University of 01:50:00 [facility] BMI 2022-10-15 35.67 kg/m2 University of 01:50:00 [facility] Systolic blood 2022-10-14 134 mm[Hg] University of pressure 14:52:00 [facility] Diastolic blood 2022-10-14 88 mm[Hg] University o f pressure 14:52:00 [facility] Heart rate 2022-10-14 101 /min [facility] 14:52:00 [facility] Body height 2022-10-14 167.6 cm [facility] of 14:51:00 [facility] Body weight 2022-10-14 100.562 kg University of 14:51:00 [facility] BMI 2022-10-14 35.78 kg/m2 [facility] of 14:51:00 [facility] Systolic blood 2022-09-21 121 mm[Hg] [facility] of pressure 20:27:00 [facility] Diastolic blood 2022-09-21 82 mm[Hg] University o f pressure 20:27:00 [facility] Heart rate 2022-09-21 105 /min [facility] 20:27:00 [facility] Body height 2022-09-21 167.6 cm University [facility] 20:27:00 [facility] Body weight 2022-09-21 101.152 kg University of 20:27:00 [facility] BMI 2022-09-21 35.99 kg/m2 University [facility] 20:27:00 [facility] Oxygen saturation 2022-09-21 97 /min [facility] in Arterial blood 20:27:00 [facility] Body height 2022-09-05 167.6 cm University [facility] 16:44:00 [facility] Body weight 2022-09-05 101.152 kg University of 16:44:00 [facility] BMI 2022-09-05 35.99 kg/m2 [facility] 16:44:00 [facility] Systolic blood 2022-09-02 113 mm[Hg] University of pressure 19:15:00 [facility] Diastolic blood 2022-09-02 77 mm[Hg] University o f pressure 19:15:00 [facility] Heart rate 2022-09-02 101 /min [facility] 19:15:00 [facility] Body temperature 2022-09-02 36.72 Diane [facility] 19:15:00 [facility] Body height 2022-09-02 165.1 cm University of 19:15:00 [facility] Body weight 2022-09-02 101.424 kg University of 19:15:00 [facility] BMI 2022-09-02 37.21 kg/m2 University of 19:15:00 [facility] Oxygen saturation 2022-09-02 96 /min [facility] of in Arterial blood 19:15:[address] [facility] P[facility] o[facility] Body height 2022-08-18 165.1 cm [facility] 18:06:00 [facility] Body weight 2022-08-18 99.338 kg University of 18:06:00 [facility] BMI 2022-08-18 36.44 kg/m2 University of 18:06:00 [facility] Body height 2022-08-04 167.6 cm University of 15:56:00 [facility] Body weight 2022-08-04 99.791 kg University of 15:56:00 [facility] BMI 2022-08-04 35.51 kg/m2 University of 15:56:00 [facility] Body height 2022-07-25 167.6 cm University of 17:38:00 [facility] Body weight 2022-07-25 99.791 kg University of 17:38:00 [facility] BMI 2022-07-25 35.51 kg/m2 University of 17:38:00 [facility] Systolic blood 2022-07-12 104 mm[Hg] University of pressure 22:02:00 [facility] Diastolic blood 2022-07-12 66 mm[Hg] University o f pressure 22:02:00 [facility] Heart rate 2022-07-12 102 /min [facility] of 22:02:00 [facility] Body temperature 2022-07-12 36.89 Diane [facility] 22:02:00 [facility] Respiratory rate 2022-07-12 20 /min [facility] of 22:02:00 [facility] Oxygen saturation 2022-07-12 96 /min [facility] in Arterial blood 22:02:[address] [facility] by P[facility] o[facility] Body height 2022-07-11 167.6 cm [facility] of 12:30:00 [facility] Body weight 2022-07-11 100.2 kg University of 12:30:00 [facility] BMI 2022-07-11 35.65 kg/m2 University of 12:30:00 [facility] Systolic blood 2022-07-11 143 mm[Hg] University of pressure 12:30:00 [facility] Diastolic blood 2022-07-11 84 mm[Hg] University o f pressure 12:30:00 [facility] Heart rate 2022-07-11 110 /min [facility] of 12:30:00 [facility] Body temperature 2022-07-11 36.56 Diane [facility] 12:30:00 [facility] Respiratory rate 2022-07-11 21 /min [facility] of 12:30:00 [facility] Body height 2022-07-11 167.6 cm University of 12:30:00 [facility] Body weight 2022-07-11 100.2 kg University of 12:30:00 [facility] BMI 2022-07-11 35.65 kg/m2 University of 12:30:00 [facility] Oxygen saturation 2022-07-11 97 /min [facility] in Arterial blood 12:30:00 [facility] Body height 2022-07-07 167.6 cm University of 20:33:00 [facility] Body weight 2022-07-07 99.338 kg University of 20:33:00 [facility] BMI 2022-07-07 35.35 kg/m2 University of 20:33:00 [facility] Body height 2022-07-07 167.6 cm University of 19:01:00 [facility] Body weight 2022-07-07 99.338 kg University of 19:01:00 [facility] BMI 2022-07-07 35.35 kg/m2 University of 19:01:00 [facility] Respiratory rate 2022-06-27 18 /min [facility] of 18:18:00 [facility] Body height 2022-06-27 167.6 cm University of 18:18:00 [facility] Body weight 2022-06-27 98.431 kg University of 18:18:00 [facility] BMI 2022-06-27 35.02 kg/m2 University of 18:18:00 [facility] Systolic blood 2022-06-21 126 mm[Hg] University of pressure 19:41:00 [facility] Diastolic blood 2022-06-21 81 mm[Hg] University o f pressure 19:41:00 [facility] Heart rate 2022-06-21 101 /min [facility] of 19:41:00 [facility] Body height 2022-06-21 167.6 cm University of 19:41:00 [facility] Body weight 2022-06-21 98.431 kg University of 19:41:00 [facility] BMI 2022-06-21 35.02 kg/m2 University of 19:41:00 [facility] Oxygen saturation 2022-06-21 98 /min [facility] in Arterial blood 19:41:00 [facility] Pulse oximetry Branch Systolic blood 2022-06-17 124 mm[Hg] University of pressure 20:04:00 [facility] Diastolic blood 2022-06-17 86 mm[Hg] University o f pressure 20:04:00 [facility] Heart rate 2022-06-17 114 /min University of 20:04:00 [facility] Body temperature 2022-06-17 36.67 Diane University of 20:04:00 [facility] Body height 2022-06-17 167.6 cm University of 20:04:00 [facility] Body weight 2022-06-17 98.431 kg University of 20:04:00 [facility] BMI 2022-06-17 35.02 kg/m2 University of 20:04:00 [facility] Systolic blood 2022-06-13 137 mm[Hg] University of pressure 15:30:00 [facility] Diastolic blood 2022-06-13 89 mm[Hg] University o f pressure 15:30:00 [facility] Heart rate 2022-06-13 100 /min University of 15:30:00 [facility] Body temperature 2022-06-13 36.39 Diane University of 15:23:00 [facility] Respiratory rate 2022-06-13 18 /min University of 15:23:00 [facility] Body height 2022-06-13 167.6 cm University of 15:23:00 [facility] Body weight 2022-06-13 99.61 kg University of 15:23:00 [facility] BMI 2022-06-13 35.44 kg/m2 University of 15:23:00 [facility] Oxygen saturation 2022-06-13 98 /min [facility] in Arterial blood 15:23:00 [facility] by Pulse oximetry Branch Systolic blood 2022-06-06 121 mm[Hg] University of pressure 16:27:00 [facility] Diastolic blood 2022-06-06 78 mm[Hg] University o f pressure 16:27:00 [facility] Heart rate 2022-06-06 100 /min University of 16:27:00 [facility] Body temperature 2022-06-06 36.94 Diane University of 16:27:00 [facility] Respiratory rate 2022-06-06 18 /min University of 16:27:00 [facility] Oxygen saturation 2022-06-06 95 /min [facility] in Arterial blood 16:27:00 [facility] by Pulse oximetry [place] Body weight 2022-06-05 99.338 kg University of 12:45:00 [facility] BMI 2022-06-05 35.35 kg/m2 University of 12:45:00 [facility] Systolic blood 2022-06-04 154 mm[Hg] University of pressure 17:55:00 [facility] Diastolic blood 2022-06-04 99 mm[Hg] University o f pressure 17:55:00 [facility] Heart rate 2022-06-04 102 /min University of 17:55:00 [facility] Body temperature 2022-06-04 36.78 Diane University of 17:55:00 [facility] Respiratory rate 2022-06-04 20 /min University of 17:55:00 [facility] Oxygen saturation 2022-06-04 99 /min University of in Arterial blood 17:55:00 [facility] by Pulse oximetry Branch Body height 2022-06-02 167.6 cm University of 15:26:00 [facility] Body weight 2022-06-02 99.338 kg University of 15:26:00 [facility] BMI 2022-06-02 35.35 kg/m2 University of 15:26:00 [facility] Systolic blood 2022-06-03 141 mm[Hg] University of pressure 18:45:00 [facility] Diastolic blood 2022-06-03 82 mm[Hg] University o f pressure 18:45:00 [facility] Heart rate 2022-06-03 94 /min University of 18:45:00 [facility] Respiratory rate 2022-06-03 15 /min University of 18:45:00 [facility] Body temperature 2022-06-03 36.67 Diane University of 18:15:00 [facility] Oxygen saturation 2022-06-03 97 /min University of in Arterial blood 18:00:00 [facility] by Pulse oximetry Branch Body height 2022-06-02 167.6 cm University of 15:26:00 [facility] Body weight 2022-06-02 99.338 kg University of 15::00 [facility] BMI 2022-06-02 35.35 kg/m2 University of 15:26:00 [facility] Systolic blood 2022-05-28 153 mm[Hg] University of pressure 00:41:00 [facility] Diastolic blood 2022-05-28 96 mm[Hg] University o f pressure 00:41:00 [facility] Heart rate 2022-05-28 110 /min University of 00:41:00 [facility] Body temperature 2022-05-28 36.67 Diane University of 00:41:00 [facility] Respiratory rate 2022-05-28 22 /min University of 00:41:00 [facility] Body weight 2022-05-28 95.255 kg University of 00:41:00 [facility] BMI 2022-05-28 33.89 kg/m2 University of 00:41:00 [facility] Oxygen saturation 2022-05-28 99 /min University of in Arterial blood 00:41:[address] [facility] benjie by Pulse oximetry Branch Systolic blood 2022-05-27 134 mm[Hg] University of pressure 20:16:00 [facility] Diastolic blood 2022-05-27 89 mm[Hg] University o f pressure 20:16:00 [facility] Heart rate 2022-05-27 109 /min University of 20:16:00 [facility] Body temperature 2022-05-27 36.72 Diane University of 20:16:00 [facility] Respiratory rate 2022-05-27 20 /min University of 20:16:00 [facility] Body weight 2022-05-27 99.338 kg University of 20:16:00 [facility] BMI 2022-05-27 35.35 kg/m2 University of 20:16:00 [facility] Oxygen saturation 2022-05-27 98 /min University of in Arterial blood 20:16:00 [facility] by Pulse oximetry Branch Systolic blood 2022-05-18 139 mm[Hg] University of pressure 16:22:00 [facility] Diastolic blood 2022-05-18 86 mm[Hg] University o f pressure 16:22:00 [facility] Heart rate 2022-05-18 96 /min University of 16:22:00 [facility] Body temperature 2022-05-18 36.5 Diane University of 16:22:00 [facility] Respiratory rate 2022-05-18 17 /min University of 16:22:00 [facility] Body weight 2022-05-18 99.746 kg University of 16:22:00 [facility] BMI 2022-05-18 35.49 kg/m2 University of 16:22:00 [facility] Oxygen saturation 2022-05-18 97 /min University of in Arterial blood 16:22:00 [place] [facility] by Pulse oximetry Branch Systolic blood 2022-05-15 120 mm[Hg] University of pressure 17:21:00 [facility] Diastolic blood 2022-05-15 78 mm[Hg] University o f pressure 17:21:00 [facility] Heart rate 2022-05-15 87 /min University of 17:21:00 [facility] Body temperature 2022-05-15 36.67 Diane University of 17:21:00 [facility] Respiratory rate 2022-05-15 17 /min University of 17:21:00 [facility] Oxygen saturation 2022-05-15 98 /min University of in Arterial blood 17:21:00 [facility] by Pulse oximetry Branch Body height 2022-05-11 167.6 cm University of 22:13:00 [facility] Body weight 2022-05-11 97.977 kg University of 22:13:00 [facility] BMI 2022-05-11 34.86 kg/m2 University of 22:13:00 [facility] Systolic blood 2022-05-11 159 mm[Hg] University of pressure 12:41:00 [facility] Diastolic blood 2022-05-11 92 mm[Hg] University o f pressure 12:41:00 [facility] Heart rate 2022-05-11 99 /min University of 12:41:00 [facility] Body temperature 2022-05-11 36.56 Diane University of 12:41:00 [facility] Respiratory rate 2022-05-11 20 /min University of 12:41:00 [facility] Body height 2022-05-11 167.6 cm University of 12:41:00 [facility] Body weight 2022-05-11 98.2 kg University of 12:41:00 [facility] BMI 2022-05-11 34.86 kg/m2 University of 12:41:00 [facility] Oxygen saturation 2022-05-11 97 /min University of in Arterial blood 12:41:00 [facility] by Pulse oximetry [place] Body height 2022-05-09 167.6 cm University of 14:54:00 [facility] Body height 2022-05-06 167.6 cm University of 18:05:00 [facility] Body weight 2022-05-06 99.338 kg University of 18:05:00 [facility] BMI 2022-05-06 35.35 kg/m2 University of 18:05:00 [facility] Body height 2022-04-25 167.6 cm University of 17:18:00 [facility] Body weight 2022-04-25 99.338 kg University of 17:18:00 [facility] BMI 2022-04-25 35.35 kg/m2 University of 17:18:00 [facility] Systolic blood 2022-04-15 136 mm[Hg] University of pressure 18:33:00 [facility] Diastolic blood 2022-04-15 91 mm[Hg] University o f pressure 18:33:00 [facility] Heart rate 2022-04-15 94 /min University 18:33:00 [facility] Body temperature 2022-04-15 36.72 Diane University 18:33:00 [facility] Respiratory rate 2022-04-15 16 /min University 18:33:00 [facility] Body height 2022-04-15 165.1 cm University 18:33:00 [facility] Body weight 2022-04-15 98.385 kg University 18:33:00 [facility] BMI 2022-04-15 36.09 kg/m2 [facility] 18:33:00 [facility] Oxygen saturation 2022-04-15 97 /min [facility] Arterial blood 18:33:00 [facility] by Pulse oximetry Branch BP Systolic 2018-03-23 115 mm[Hg] Location: [facility]; [facility] 14:57:00 Position: Sitting BP Diastolic 2018-03-23 76 mm[Hg] Location: [facility] 14:57:00 Position: Sitting Height 2018-03-23 64 [in_us] [facility] 14:57:00 Weight 2018-03-23 216 [lb_av] [facility] 14:57:00 Body Mass Index 2018-03-23 37.08 kg/m2 [facility] Calculated 14:57:00 Heart Rate 2018-03-23 96 /min [facility] 14:57:00 BP Systolic 2017-10-20 127 mm[Hg] Location: [facility] 13:15:00 Position: Sitting BP Diastolic 2017-10-20 83 mm[Hg] Location: [facility] 13:15:00 Position: Sitting Height 2017-10-20 64 [in_us] [facility] 13:15:00 Weight 2017-10-20 222 [lb_av] [facility] 13:15:00 Body Mass Index 2017-10-20 38.11 kg/m2 [facility] Calculated 13:15:00 Heart Rate 2017-10-20 102 /min [facility] 13:15:00 BP Systolic 2017-07-13 104 mm[Hg] Location: [facility] 10:56:00 Position: Sitting BP Diastolic 2017-07-13 69 mm[Hg] Location: [facility] 10:56:00 Position: Sitting Height 2017-07-13 64 [in_us] [facility] 10:56:00 Weight 2017-07-13 215.2 [lb_av] [facility] 10:56:00 Body Mass Index 2017-07-13 36.94 kg/m2 [facility] Calculated 10:56:00 Heart Rate 2017-07-13 102 /min [facility] 10:56:00 Procedures Procedure Date / Time Performing Clinician Source Performed [place] TIME OR 2023-02-17 18:26:44 Mindi Freeman [facility] (NON-REPORTABLE) Medical Branch XR HIPS 2 VW BILATERAL 2022-12-27 14:19:00 Mindi Freeman [facility] AUTHORIZATION FOR RELEASE 2022-11-22 05:01:00 Doctor Marisol, [facility] Name Medical [place] BASIC METABOLIC PANEL 2022-10-15 10:31:00 [facility] ([facility] K, CL, CO2, GLUCOSE, Medica l Branch BUN, CREATININE, CA) CBC WITH DIFF 2022-10-15 10:31:00 Antonio [facility] LUMBAR SPINE WO 2022-10-14 22:00:07 [facility], SERUM 2022-10-14 18:51:00 Becka [facility] Medical [place] COMP. METABOLIC PANEL 2022-10-14 18:50[id number] [place] CBC WITH DIFF 2022-10-14 18:50:00 [facility] CONSENT/REFUSAL FOR 2022-10-14 18:07:21 Doctor Marisol [facility] DIAGNOSIS AND TREATMENT [facility] [place] MR LUMBAR SPINE W WO 2022-10-07 18:08:00 Inna Corley [facility] Branch CONSENT/REFUSAL FOR 2022-10-07 16:19:46 Doctor Marisol [facility] DIAGNOSIS AND TREATMENT [facility] AUTHORIZATION FOR RELEASE 2022-08-30 06:01:00 Doctor Marisol, [facility] PATIENT QUESTIONNAIRE 2022-08-02 06:01:[address] [facility] [place] [facility] AUTHORIZATION FOR RELEASE 2022-07-20 06:01:00 Doctor Damon [facility] [facility] BASIC METABOLIC PANEL 2022-07-12 09:10:00 [facility] (NA, K, CL, CO2, GLUCOSE, Medica l Branch BUN, CREATININE, CA) CBC WITH DIFF 2022-07-12 09:10:[address] [facility] BASIC METABOLIC PANEL 2022-07-12 09:10:00 [facility] (NA, K, CL, CO2, GLUCOSE, Medica l Branch BUN, CREATININE, CA) CBC WITH DIFF 2022-07-12 09:10:[address] [facility] TEST, SERUM 2022-07-11 23:06:00 Arely [facility] TEST, SERUM 2022-07-11 23:06:00 Arely [facility] CEREBRAL SPINAL FLUID 2022-07-11 14:26:00 Romario [facility] LEAK REPAIR Medical [place] SPINE IRRIGATION AND 2022-07-11 14:26:00 Romario [facility] DEBRIDEMENT Medical [place] CEREBRAL SPINAL FLUID 2022-07-11 14:26:00 Romario [facility] LEAK REPAIR Medical [place] SPINE IRRIGATION AND 2022-07-11 14:26:00 Roselyn Doss [facility] DEBRIDEMENT Medical Branch HB ABO GROUPING 2022-07-11 12:46:00 Silvia [facility] HB ABO GROUPING 2022-07-11 12:46:00 Silvia [facility] CONSENT/REFUSAL FOR 2022-07-11 11:59:18 [facility] DIAGNOSIS AND TREATMENT [place] CONSENT/REFUSAL FOR 2022-07-11 11:59:18 Doctor Damon [facility] DIAGNOSIS AND TREATMENT [facility] [place] ASSIGNMENT OF BENEFITS 2022-07-11 11:57:46 Doctor Unassigned, [facility] [place] [facility] ASSIGNMENT OF BENEFITS 2022-07-11 11:57:46 Doctor Unassigned, [facility] [place] [facility] MR LUMBAR SPINE W WO 2022-06-29 22:32:42 Luis Eduardo Govea [facility] CONTRAST [facility] BASIC METABOLIC PANEL 2022-06-06 10:31:[address] [facility] (NA, K, CL, CO2, GLUCOSE, [place] Medica l Branch BUN, CREATININE, CA) CBC WITH DIFF 2022-06-06 10:31:00 Davies[facility] BASIC METABOLIC PANEL 2022-06-05 13:39:00 Arturo Leos [facility] (NA, K, CL, CO2, GLUCOSE, Medica l Branch BUN, CREATININE, CA) CBC WITH DIFF 2022-06-05 13:39:00 Arturo Leos [facility] [facility] CONSENT/REFUSAL FOR 2022-06-05 12:47:31 Doctor Unasstom, [facility] DIAGNOSIS AND TREATMENT [place] [facility] LAMINECTOMY LUMBAR 2022-06-03 14:02:00 Romario [facility] CLOSURE SURGICAL WOUND 2022-06-03 14:02:00 Roselyn Doss [facility] HB ABO GROUPING 2022-06-03 13:48:00 Trudy [facility] HB ABO GROUPING 2022-06-03 13:48:00 Trudy [facility] PROTHROMBIN TIME / INR 2022-06-03 13:47:00 Trudy [facility] ACTIVATED PARTIAL 2022-06-03 13:47:00 Trudy [facility] PROTHROMBIN TIME / INR 2022-06-03 13:47:00 Trudy [facility] ACTIVATED PARTIAL 2022-06-03 13:47:00 Trudy [facility] BASIC METABOLIC PANEL 2022-06-03 09:32:00 [place] (NA, K, CL, CO2, GLUCOSE, Medica l Branch BUN, CREATININE, CA) CBC WITH DIFF 2022-06-03 09:32:00 Sara [facility] BASIC METABOLIC PANEL 2022-06-03 09:32:00 Sol [facility] (NA, K, CL, CO2, GLUCOSE, Medica l Branch BUN, CREATININE, CA) CBC WITH DIFF 2022-06-03 09:32:00 Sara [facility] MR LUMBAR SPINE W WO 2022-06-02 21:43:00 Marcos [facility] CONTRAST Medical Branch MR LUMBAR SPINE W WO 2022-06-02 21:43:00 Marcos Hamilton [facility] CONTRAST Medical Branch CT LUMBAR SPINE WO 2022-06-02 17:15:44 [facility] [place] CT LUMBAR SPINE WO 2022-06-02 17:15:44 [facility] TEST, SERUM 2022-06-02 16:01:00 [facility]OLIC PANEL 2022-06-02 16:01:00 [id number] CBC WITH DIFF 2022-06-02 16:01:00 [facility] 2022-06-02 16:01:00 [facility] METABOLIC PANEL 2022-06-02 16:01:00 [id number] CBC WITH DIFF 2022-06-02 16:01:00 [facility] FOR 2022-06-02 15:23:33 Doctor Unassigned, [facility] DIAGNOSIS AND TREATMENT [facility] [place] CONSENT/REFUSAL FOR 2022-06-02 15:23:33 Doctor Unassigned, [facility] DIAGNOSIS AND TREATMENT [facility] [place] EMERGENCY SERVICES 2022-06-02 05:01:00 Doctor Unassigned, [facility] AGREEMENTS AND [place] [facility] AUTHORIZATIONS CONSENT/REFUSAL FOR 2022-05-28 00:36:07 Doctor Unassigned, [facility] DIAGNOSIS AND TREATMENT [facility] [place] MAGNESIUM 2022-05-14 10:25:00 Ale Yao [facility] BASIC METABOLIC PANEL 2022-05-14 10:25:00 Ale Yao [facility] (NA, K, CL, CO2, GLUCOSE, Medica l Branch BUN, CREATININE, CA) BASIC METABOLIC PANEL 2022-05-12 10:27:00 [facility] (NA, K, CL, CO2, GLUCOSE, [facility] Medica l Branch BUN, CREATININE, CA) CBC WITH DIFF 2022-05-12 10:27:00 [facility] BASIC METABOLIC PANEL 2022-05-12 10:27:00 [facility] (NA, K, CL, CO2, GLUCOSE, [facility] BUN, CREATININE, CA) CBC WITH DIFF 2022-05-12 10:27:[address] [facility] FL TIME OR 2022-05-11 18:27:22 Romario [facility] (NON-REPORTABLE) Medical Branch [place] TIME OR 2022-05-11 18:27:22 Romario [facility] (NON-REPORTABLE) Medical Branch [place] TIME OR 2022-05-11 16:05:00 Romario [facility] (NON-REPORTABLE) Medical Branch FL TIME OR 2022-05-11 16:05:00 Romario [facility] (NON-REPORTABLE) Medical Branch XR LUMBAR SPINE 1 VW 2022-05-11 14:29:49 [facility] 1 VW 2022-05-11 14:29:49 Romario Roselyn [facility] POSTERIOR LUMBAR 2022-05-11 13:39:00 Romario [facility] INTERBODY SPINAL FUSION Medical Branch POSTERIOR LUMBAR 2022-05-11 13:39:00 Romario [facility] INTERBODY SPINAL FUSION Medical Branch HB ABO GROUPING 2022-05-11 12:34:00 Kendra Sun [facility] HB ABO GROUPING 2022-05-11 12:34:00 Kendra Sun [facility] ASSIGNMENT OF BENEFITS 2022-05-11 12:00:45 Doctor Unassigned, [facility] [place] [facility] XR LUMBAR SPINE FLEXION 2022-04-15 19:57:28 [facility] 2 [facility] h [QLH] T4, FREE 2018-03-23 00:00:00 [facility] [[facility]] TSH, 3RD GENERATION 2018-03-23 00:00:00 [facility] [place] Thyroid [id number] 2018-03-23 00:00:00 [facility] [[facility]] TSH, 3RD GENERATION 2017-10-20 00:00:00 [facility] [QLH] T4, FREE 2017-10-20 00:00:00 [facility] [place] Thyroid [id number] 2017-10-20 00:00:00 [facility] [[facility]] TSH, 3RD GENERATION 2017-07-13 00:00:00 [facility] [QLH] T4, FREE 2017-07-13 00:00:00 [facility] [QL[facility]] T3, FREE 2017-07-13 00:00:00 [facility] [place] Thyroid [id number] 2017-07-13 00:00:00 [facility] [place] Thyroid [id number] 2017-06-20 00:00:00 [facility] US Thyroid biopsy guided 2017-06-20 00:00:[place] [facility] [place] [id number] [facility] Plan of Care Planned Activity Planned Date Details Comments Source Diagnostic Test 2019-03-23 00:00:00 [QLH] TSH, 3RD [facility] Pending GENERATION [code = [QLH] TSH, 3RD GENERATION] Diagnostic Test 2019-03-23 00:00:00 [QLH] T4, FREE [code [facility] Pending = [QLH] T4, FREE] Diagnostic Test 2019-03-23 00:00:00 [place] Thyroid 91890 [facility] Pending [code = 22819] Diagnostic Test 2019-03-23 00:00:00 [place] Thyroid 91464 [facility] Pending [code = 72815] Diagnostic Test 2019-03-23 00:00:00 [place] Thyroid 13005 [facility] Pending [code = 56395] Diagnostic Test 2019-03-23 00:00:00 [place] Thyroid 11480 [facility] Pending [code = 35809] Diagnostic Test 2018-04-22 00:00:00 [QLH] TSH, 3RD [facility] Pending GENERATION [code = [QLH] TSH, 3RD GENERATION] Diagnostic Test 2018-04-22 00:00:00 [QLH] T4, FREE [code [facility] Pending = [QLH] T4, FREE] Diagnostic Test 2018-04-22 00:00:00 US Thyroid 44677 [facility] Pending [code = 71120] Diagnostic Test 2018-01-11 00:00:00 [place] Thyroid 64321 [facility] Pending [code = 76080] Diagnostic Test 2018-01-11 00:00:00 [place] Thyroid 89243 [facility] Pending [code = 44736] Diagnostic Test 2018-01-11 00:00:00 [place] Thyroid 04101 [facility] Pending [code = 48034] Diagnostic Test 2017-10-11 00:00:00 [QLH] TSH, 3RD [...] FREE] Diagnostic Test 2017-06-20 00:00:00 US Thyroid 15480 [facility] Pending [code = 88060] Diagnostic Test 2017-06-20 00:00:00 US Thyroid biopsy [facility] [place] [id number] [code = 60360] Encounters Start End Encounter Admission Attending Care Care Encounter Source Date/Time Date/Time Type Type Clinicians Facility Department ID 2023-03-10 2023-03-10 Outpatient R [facility] [id number] Univers 10:00:00 10:00:00 [facility] 2023-02-21 2023-02-21 Outpatient Leonie [facility] [id number] Univers 11:00:00 11:00:00 [facility] 2023-02-17 2023-02-17 [facility] [id number] Univers 13:05:11 23:59:00 Encounter Mindi MULTISPEC [id number] [id number] [id number] [facility] [address] [place] [facility] 2023-02-17 2023-02-17 Office [facility] [id number] Univers 11:00:00 11:30:00 Visit Mindi MULTISPEC [id number] [id number] [id number] [facility] AND JORGE [address] [place] [facility] 2023-02-17 2023-02-17 Outpatient R [facility] [id number] Univers 11:00:00 11:00:00 MINDI [facility] 2023-02-13 2023-02-13 Telephone [facility] [id number] Univers 00:00:00 00:00:00 Mindi MULTISPEC [id number] [id number] [id number] [facility] AND JORGE [address] [facility] 2023-01-30 2023-01-30 Outpatient ROSELYN BURRIS [facility] [id number] Univers 09:15:00 09:15:00 ity of [facility] 2022-12-30 2022-12-30 [facility] [id number] Univers 00:00:00 00:00:00 [place] [facility] [id number] [id number] [id number] [facility] [address] Branch 2022-12-27 2022-12-27 [facility] [id number] Univers 08:43:57 23:59:00 Encounter Mindi Y HEALTH [id number] ity [facility] [id number] [id number] [facility] [address] [place] 2022-12-27 2022-12-27 Outpatient R ARIN [facility] [id number] Univers 08:21:57 08:42:00 [facility]22-12-27 2022-12-27 [facility] 1.2.840.114 [id number] Univers 08:15:00 08:42:00 Encounter [facility] 350.1.13.10 ity of CLINICS [place].2.[place] [id number] [facility] [address] [place] 2022-12-20 2022-12-20 Outpatient ROSELYN BURRIS [facility] [id number] Univers 11:00:00 11:00:00 ity of [facility] 2022-12-15 2022-12-15 Outpatient R ARIN [facility] [id number] Univers 08:00:00 09:03:28 [facility] 2022-12-15 2022-12-15 Office Mitchell Manzanares [facility] 1.2 .840.114 [id number] Univers 08:00:00 09:03:28 Visit David Phillips 350.1.13.10 ity of C[place].2.[place] [phone] Co dical [address] [place] 2022-12-15 2022-12-15 Tele[facility] 1.2.840.114 [id number] Univers 00:00:00 00:00:00 Mitchell PRIMARY 350.1.13.10 it y [facility] 4.2.7.2.[place] [id number] Co dical [address] [place] 2022-12-14 2022-12-14 Outpatient R PETE [facility] [id number] Univers 14:30:00 14:30:00 MINDI gann [facility] 2022-12-13 2022-12-13 Outpatient R RADHA [facility] [id number] Univers 11:00:00 11:58:52 ALEN [facility] 2022-12-13 2022-12-13 Ancillary Helena Hernandez [facility] 1.2.84 0.114 [id number] Univers 11:00:00 11:58:52 Visit Alen Garcia 350.1.13.10 ity [facility] 4.2.7.2.[place] PROFESS [id number] Co dical NAL 179 [employer] 2022-12-12 2022-12-12 Telephone [facility] 1.2.326.723 [id number] Univers 00:00:00 00:00:00 Mindi EDWARD 350.1.13.10 ity of [place].2.7.2.[place] CENTER [phone] [facility] PATEL [address] [place] [facility] 2022-12-06 2022-12-06 Outpatient R PETE [facility] [id number] Univers 10:30:00 11:23:02 MINDI [facility] 2022-12-06 2022-12-06 Office [facility] 1.2.840.114 [id number] Univers 10:30:00 11:23:02 Visit Mindi EDWARD 350.1.13.10 ity of [place] 4.2.7.2.[place] CENTER [id number] [facility] PATEL [address] [place] [facility] 2022-11-28 2022-11-28 Outpatient R ROMARIO ROSELYN [facility] [id number] Univers 08:00:00 09:09:28 ity of [facility] 2022-11-22 2022-11-22 Orders Doctor ANGELINE 1.2.840.114 [id number] Univers 00:00:00 00:00:00 Only Unassigned, HOANG 350.1.13.10 ity of [place] [facility] 4.2.7.2.686 [place] [id number] [facility] [address] 2022-11-18 2022-11-18 Telephone ANGELINE Manzanares 1.2.840.114 10 [id number] Univers 00:00:00 00:00:00 Mitchell HOANG 350.1.13.10 it y of [facility] 4.2.7.2.686 [place] [id number] [facility] [address] [place] 2022-11-16 2022-11-16 Help Desk Engineer Pcp-Lab [facility] 1.2.840.[id number] [facility] 13:15:00 13:30:00 Visit Pathology PRIMARY 350.1.13.10 ity of CARE 4.2.[place].2.[place] [phone] Co dical [address] 2022-11-16 2022-11-16 Outpatient R PAIGE [facility] [id number] Univers 10:30:00 13:06:05 sanjuanita [place]ACK[place]URN o f AQUILES [facility] 2022-11-16 2022-11-16 Office Mitchell Manzanares [facility] 1.2 .840.114 [id number] Univers 10:30:00 13:06:05 Visit Aquiles Watts PRIMARY 350. 1.13.10 ity of CARE 4.2.7.2.[place] [id number] Co dical [address] 2022-11-16 2022-11-16 Outpatient R OLU HOLCOMB [facility] [id number] Univers 13:00:00 13:00:00 OLU HOLCOMB ity [facility] 2022-11-03 2022-11-03 Outpatient Leonie FREEMAN [facility] [id number] Univers 10:00:00 10:30:05 MINDI tovarsusan [facility] 2022-11-03 2022-11-03 Office [facility] 1.2.840.114 [id number] Univers 10:00:00 10:30:05 Visit Mindi TIMOTHY 350.1.13.10 it y of [facility] 4.2.7.2.686 [place] [phone] Co dical [address] [place] 2022-10-18 2022-10-18 Outpatient R PETE [facility] [id number] Univers 14:30:00 14:59:07 MINDI tovarsusan [facility] 2022-10-18 2022-10-18 Office [facility] 1.2.840.114 [id number] Univers 14:30:00 14:59:07 Visit Mindi EDWARD 350.1.13.10 ity [facility] 4.2.7.2.686 [place] [id number] [facility] AND [place] [address] DIABETES CLINIC 2022-10-14 2022-10-15 Outpatient X ANTONIO [facility] CHELO [id number] Univers 12:12:00 18:21:00 [facility] 2022-10-14 2022-10-15 Emergency Tang Jovel [facility] 1.2.840.114 [id number] Univers 12:12:00 18:21:00 [facility] 350.1.13.10 ity of [place] 4.2.7.2.[place] [address] [id number] [facility] [address] (CLC) 2022-10-14 2022-10-14 Outpatient R MALLIKA [facility] [id number] Univers 09:00:00 12:11:00 FERNANDO ity [facility] 2022-10-14 2022-10-14 Office [facility] 1.2.840.114 [id number] Univers 09:00:00 09:30:00 Visit [facility] 350.1.13.10 it y of [place] 4.2.7.2.686 [place] DEEPTI?BLEA [phone] Co don[address] MEDICAL OFFICE BUILDING 2022-10-12 2022-10-12 Milka Schuler [facility] 1.2.027.260 [id number] Univers 00:00:00 00:00:00 Angela [facility] 350.1.13.10 i ty of [place] 4.2.7.2.686 [facility] [id number] [place] [address] [address] OFFICE BUILDING 2022-10-12 2022-10-12 Milka [facility] 1.2.840.114 [id number] Univers 00:00:00 00:00:00 Mindi EDWARD 350.1.13.10 ity of [place] 4.2.7.[address] [place] [address] [phone] [facility] AND [address] DIABETES CLINIC 2022-10-10 2022-10-10 Outpatient ROSELYN BURRIS [facility] [id number] Univers 09:30:00 10:53:28 ity of [facility] 2022-10-07 2022-10-07 Outpatient Leonie CORLEY [facility] [id number] Univers 10:20:15 23:59:00 INNA gann of [facility] 2022-10-07 2022-10-07 [facility] 1.2.840.114 [id number] Univers 10:20:15 23:59:00 Encounter Inna COHEN 350.1.13.10 ity [facility] 4.2.7.2.686 [facility] [id number] [facility] [address] 2022-10-07 2022-10-07 Orders Doctor ANGELINE 1.2.840.114 [id number] Univers 00:00:00 00:00:00 Only Unassigned, HOANG 350.1.13.10 ity of [place] [facility] 4.2.7.2.686 [facility] [id number] [facility] [address] 2022-10-03 2022-10-03 Outpatient ROSELYN BURRIS [facility] [id number] Univers 10:30:00 12:24:03 ity of [facility] 2022-09-22 2022-09-22 Loren [facility] 1.2.921.577 [id number] Univers 00:00:00 00:00:00 Mindi EDWARD 350.1.13.10 ity of [place] 4.2.7.2.686 [place] [id number] [facility] AND [place] [address] [place] DI[facility] CLINIC 2022-09-21 2022-09-21 Outpatient Leonie FREEMAN [facility] [id number] Univers 14:30:00 15:07:59 MINDI ity [facility] 2022-09-21 2022-09-21 Office [facility] 1.2.840.114 [id number] Univers 14:30:00 15:07:59 Visit [facility] 350.1.13.10 ity of [place] 4.2.7.2.686 [place] [id number] [facility] AND [address] DIABETES CLINIC 2022-09-15 2022-09-15 Outpatient ROSELYN BURRIS [facility] [id number] Univers 11:00:00 11:00:00 ity [facility] 2022-09-05 2022-09-05 Outpatient ROSELYN BURRIS [facility] [id number] Univers 10:45:00 11:34:33 ity [facility] 2022-09-05 2022-09-05 Office [facility] 1.2.840.114 [id number] Univers 10:45:00 11:34:33 Visit HEALTH 350.1.13.10 it y of [place] 4.2.7.2.686 [place] [facility] [id number] [address] OFFICE BUILDING 2022-09-02 2022-09-02 Outpatient ROSELYN BURRIS [facility] [id number] Univers 13:00:00 13:37:00 ity [facility] 2022-09-02 2022-09-02 Office Clinic, Neurosurgery Residen t UNIVERSIT 1.2.840.114 [id number] Univers 13:00:00 13:37:00 Visit Roselyn Doss HEALTH 350.1.13.10 ity of [facility] 4.2.7.2.686 [place] [id number] [address] 2022-08-30 2022-08-30 Orders Doctor MARCUS 1.2.840.114 [id number] Univers 00:00:00 00:00:00 Only Unassigned, HOANG 350.1.13.10 ity of [place] [facility] 4.2.7.2.686 [place] as [id number] [address] 2022-08-26 2022-08-26 Telephone [facility] 1.2.840.114 [id number] Univers 00:00:00 00:00:00 HEALTH 350.1.13.10 it y of [place] 4.2.7.2.[place] [id number] [address] OFFICE BUILDING 2022-08-26 2022-08-26 Refill Rafaela [facility] 1.2.840.114 [id number] Univers 00:00:00 00:00:00 Henrique FAMILY 350.1.13.10 it y of MEDICINE 4.2.7.2.686 [place] CLINIC - [phone] [address] 2022-08-18 2022-08-18 Office [facility] 1.2.840.114 [id number] Univers 12:15:00 12:30:00 Visit HEALTH 350.1.13.10 it y of [place] 4.2.7.2.[place] [id number] [address] OFFICE BUILDING 2022-08-18 2022-08-18 Outpatient R ROSELYN DOSS [facility] [id number] Univers 12:15:00 12:15:00 ity of [facility] 2022-08-06 2022-08-06 Telephone [facility] 1.2.840.114 [id number] Univers 00:00:00 00:00:00 HEALTH 350.1.13.10 it y of [place] 4.2.7.2.[place] [id number] [address] OFFICE BUILDING 2022-08-04 2022-08-04 Out[facility] [id number] Univers 10:00:00 11:10:46 ity of [facility] 2022-08-04 2022-08-04 Office [facility] 1.2.840.114 [id number] Univers 10:00:00 11:10:46 Visit HEALTH 350.1.13.10 it y of [place] 4.2.7.2.[place] [id number] [address] OFFICE BUILDING 2022-08-04 2022-08-04 Outpatient R ROSELYN DOSS [facility] [id number] Univers 09:30:00 09:30:00 ity of [facility] 2022-08-02 2022-08-02 Orders Doctor MARCUS 1.2.840.114 [id number] Univers 00:00:00 00:00:00 Only Unassigned, HOANG 350.1.13.10 ity of [place] [facility] 4.2.7.2.686 [place] as [id number] [address] 2022-08-01 2022-08-01 Telephone Roselyn Doss [facility] 1.2.840.114 [id number] Univers 00:00:00 00:00:00 HEALTH 350.1.13.10 it y of [place] 4.2.7.2.[place] [id number] [address] OFFICE BUILDING 2022-07-28 2022-07-28 Outpatient R RAFAELA [facility] [id number] Univers 09:30:00 09:30:00 HENRIQUE ity [facility] 2022-07-25 2022-07-25 Office [facility] 1.2.840.114 [id number] Univers 11:45:00 12:00:00 Visit HEALTH 350.1.13.10 it y of [place] 4.2.7.2.[place] [id number] [address] OFFICE BUILDING 2022-07-25 2022-07-25 Outpatient R ROSELYN DOSS [facility] [id number] Univers 11:45:00 11:45:00 ity [facility] 2022-07-22 2022-07-22 Telephone Alfonso [facility] 1.2.203.243 [id number] Univers 00:00:00 00:00:00 Marcos HEALTH 350.1.13.10 it y of [place] 4.2.7.2.[place] [id number] [address] OFFICE BUILDING 2022-07-20 2022-07-20 Orders Doctor MARCUS 1.2.840.114 [id number] Univers 00:00:00 00:00:00 Only Unassigned, HOANG 350.1.13.10 ity of [place] [facility] 4.2.7.2.686 [place] as [id number] [address] 2022-07-18 2022-07-18 Telephone Roselyn Doss [facility] 1.2.840.114 [id number] Univers 00:00:00 00:00:00 HEALTH 350.1.13.10 it y of [place] 4.2.7.2.[place] [id number] [address] OFFICE BUILDING 2022-07-13 2022-07-13 Telephone [facility] 1.2.840.114 [id number] Univers 00:00:00 00:00:00 HEALTH 350.1.13.10 it y of [place] 4.2.7.2.[place] [id number] [address] OFFICE BUILDING 2022-07-11 2022-07-12 Outpatient R DEVIN PEREZ [facility] [id number] Univers 05:57:00 18:30:00 [facility] 2022-07-11 2022-07-12 [facility] 1.2.840.114 [id number] Univers 05:57:00 18:30:00 Encounter BrandyDevin thompson HEALTH 350.1.13.10 ity of [place] 4.2.7.2.[place] [id number] [facility] [address] [place] ([facility]) 2022-07-11 2022-07-11 Surgery [facility] 1.2.840.114 [id number] Univers 07:50:00 10:00:00 HEALTH 350.1.13.10 it y of [place] 4.2.7.2.[place] [id number] [facility] [address] [place] ([facility]) 2022-07-10 2022-07-10 Outpatient R ROSELYN DOSS [facility] [id number] Univers 00:00:00 00:00:00 ity [facility] 2022-07-07 2022-07-07 Pre-Anesth Call, [facility] 1.2.840.114 [id number] Univers 14:30:00 14:35:00 esia Apa Phone HEALTH 350.1.13.10 ity of Evaluation [place] 4.2.7.2.686 [address]ER [phone] [address] ([facility]) 2022-07-07 2022-07-07 Office [facility] 1.2.840.114 [id number] Univers 12:45:00 13:00:00 Visit HEALTH 350.1.13.10 it y of [place] 4.2.7.2.[place] [id number] [address] OFFICE BUILDING 2022-07-07 2022-07-07 Outpatient ROSELYN BURRIS [facility] [id number] Univers 12:45:00 12:45:00 ity of [facility] 2022-07-05 2022-07-05 Telephone [facility] 1.2.840.114 [id number] Univers 00:00:00 00:00:00 HEALTH 350.1.13.10 it y of [place] 4.2.7.2.[place] [id number] [address] OFFICE BUILDING 2022-06-29 2022-06-29 Outpatient ROSELYN BURRIS [facility] [id number] Univers 14:52:11 23:59:00 ity of [facility] 2022-06-29 2022-06-29 Hospital Roselyn Doss [facility] 1.2.840.114 [id number] Univers 14:52:11 23:59:00 Encounter SPECIALTY 350.1.13.10 ity of CARE 4.2.7.2.686 [place] [facility] AT [id number] Co jesenia BOURGEOIS 804 [facility] 2022-06-27 2022-06-27 Outpatient ROSELYN BURRIS [facility] [id number] Univers 13:00:00 17:11:30 ity of [facility] 2022-06-27 2022-06-27 Office [facility] 1.2.840.114 [id number] Univers 13:00:00 17:11:30 Visit HEALTH 350.1.13.10 it y of [place] 4.2.7.2.[place] [id number] [address] OFFICE BUILDING 2022-06-27 2022-06-27 Help Desk Engineer Draw, Clc-Bls Lab [facility] 1.2.8 40.114 [id number] Univers 14:15:00 14:30:00 Visit Roselyn Doss HEALTH 350.1.13.10 ity of [place] 4.2.7.2.[place] [id number] [address] OFFICE BUILDING 2022-06-24 2022-06-24 Telephone Roselyn Doss [facility] 1.2.840.114 [id number] Univers 00:00:00 00:00:00 HEALTH 350.1.13.10 it y of [place] 4.2.7.2.686 [place] [id number] [address] OFFICE BUILDING 2022-06-21 2022-06-21 Office Pete [facility] 1.2.840.114 [id number] Univers 13:00:00 14:33:03 Visit Mindi EDWARD 350.1.13.10 ity of [place] 4.2.7.2.686 [place] CENTER [id number] [address] DIABETES CLINIC 2022-06-21 2022-06-21 Outpatient Leonie FREEMAN [facility] [id number] Univers 13:00:00 14:33:03 MINDI gann [facility] 2022-06-21 2022-06-21 Outpatient Leonie FREEMAN [facility] [id number] Univers 13:00:00 13:00:00 MINDI gann [facility] 2022-06-21 2022-06-21 Outpatient Leonie FREEMAN [facility] [id number] Univers 13:00:00 13:00:00 MINDI gann [facility] 2022-06-21 2022-06-21 Outpatient Leonie FREEMAN [facility] [id number] Univers 13:00:00 13:00:00 MINDI gann [facility] 2022-06-17 2022-06-17 Outpatient R KACY [facility] [id number] Univers 13:40:00 14:40:05 MARCIO gann [facility] 2022-06-17 2022-06-17 Office Clinic, Neurosurgery Residen t UNIVERSIT 1.2.840.114 [id number] Univers 13:40:00 14:40:05 Visit Mame Woodruffy Wayne Y HEALTH 350.1.13.10 ity of [facility] 4.2.7.2.686 [facility] [id number] [address] 2022-06-15 2022-06-15 Outpatient Leonie TORRE [facility] [id number] Univers 13:45:00 13:45:00 RAY gann [facility] 2022-06-13 2022-06-13 Outpatient Leonie RUSSO [facility] [id number] Univers 09:30:00 12:35:45 HENRIQUE [facility] 2022-06-13 2022-06-13 Office [facility] 1.2.840.114 [id number] Univers 09:30:00 12:35:45 Visit Henrique [facility] 350.1.13.10 it y of MEDICINE 4.2.7.2.686 [facility] - [phone] [address] 2022-06-13 2022-06-13 Telephone Roselyn Doss [facility] 1.2.840.114 [id number] Univers 00:00:00 00:00:00 HEALTH 350.1.13.10 it y of [place] 4.2.7.2.686 [facility] [id number] [address] OFFICE BUILDING 2022-06-07 2022-06-07 Outpatient Leonie CHAN [facility] [id number] Univers 07:30:00 07:30:00 MARCOS gann [facility] 2022-06-05 2022-06-06 Outpatient X SUSANA [facility] [id number] Univers 07:47:00 12:30:00 DAMON gann [facility] 2022-06-05 2022-06-06 Emergency Arturo Leos 1.2.840.1 14 [id number] Univers 07:47:00 12:30:00 Damon Santana 350.1.13.10 ity of [facility] 4.2.7.2.686 [place] [id number] [facility] [address] 2022-06-06 2022-06-06 Outpatient R ROSELYN DOSS [facility] [id number] Univers 09:45:00 09:45:00 ity of [facility] 2022-06-06 2022-06-06 Transition GINA Castro 1.2.840.114 [id number] Univers 00:00:00 00:00:00 of Care Leslie PARR 350.1.13.10 i ty of [place].2.[place] [id number] [facility] [address] 2022-06-02 2022-06-04 Inpatient X SARA [facility] [id number] Univers 10:30:00 13:19:00 BRIAN ity [facility] 2022-06-02 2022-06-04 [facility] 1.2.840.114 [id number] Univers 10:30:00 13:19:00 Encounter Sara Brian [facility] 350.1.13.10 ity of [place]2.7.2.[place] [address] [id number] [facility] [address] (CLC) 2022-06-03 2022-06-03 Surgery Roselyn Doss [facility] 1.2.840.114 [id number] Univers 09:30:00 13:57:00 HEALTH 350.1.13.10 it y of [place]2.7.2.[place] [id number] [facility] [address] (CLC) 2022-06-01 2022-06-01 Outpatient R SURAJ [facility] [id number] Univers 13:15:00 14:14:41 MARCOS gann of [facility] 2022-06-01 2022-06-01 Ancillary Davey Rodrigues [facility] 1.2.840.1 14 [id number] Univers 13:15:00 14:14:41 Visit Marcos Chan PRIMARY 350.1.13.10 ity of C[place] 4.2.7.2.686 [place] [id number] Co dical [address] 2022-05-31 2022-05-31 Telephone Roselyn Doss [facility] 1.2.840.114 [id number] Univers 00:00:00 00:00:00 HEALTH 350.1.13.10 it y of [place]2.[place].2.[place] [address] [id number] [facility] [address] OFFICE BUILDING 2022-05-27 2022-05-28 Emergency X SURESH, [facility] ERT [id number] Univers 19:43:00 00:42:00 SHINTA ity [facility] 2022-05-27 2022-05-28 Emergency Vincent, TRAUMA 1.2.840.114 [id number] Univers 19:43:00 00:42:00 [facility] 350.1.13.10 it y of 4.2.7.2.686 [place] [id number] [facility] [address] 2022-05-27 2022-05-27 Nurse Nurse, Miguelito Adult Urgent [facility] 1. 2.840.114 [id number] Univers 16:15:00 16:30:00 Visit Unknown, Attending ISLAND 350.1.13.10 ity of Myrna Blankenship PEDIATRIC 4.2.7.2.686 [facility] [id number] [facility] [address] 2022-05-27 2022-05-27 Outpatient R SAROJ [facility] [id number] Univers 16:15:00 16:05:47 [facility] ity [facility] 2022-05-27 2022-05-27 Patient Rafaela [facility] 1.2.840.114 [id number] Univers 00:00:00 00:00:00 Secure Msg Henrique FAMILY 350.1.13.10 ity of MEDICINE 4.2.7.2.686 [place] CLINIC - [id number] [facility] [address] [place] 2022-05-26 2022-05-26 Ancillary Davey Rodrigues [facility] 1.2.840.1 [id number] Univers 11:15:00 12:33:38 Visit Marcos Chan PRIMARY 350.1.13.10 [place] [id number] Me dical [address] 2022-05-20 2022-05-20 [facility] 1.2.840.114 [id number] Univers 00:00:00 00:00:00 HEALTH 350.1.13.10 [place] [id number] [facility] [address] OFFICE BUILDING 2022-05-19 2022-05-19 [facility] 1.2.840.114 [id number] Univers 00:00:00 00:00:00 Leesa MULTISPEC 350.1.13.10 [place] [id number] [address] [facility] 2022-05-18 2022-05-18 Office [facility] 1.2.840.114 [id number] Univers 11:30:00 12:00:00 Visit Henrique FAMILY 350.1.13.10 it y of MEDICINE 4.2.7.2.686 [place] - [id number] [address] 2022-05-18 2022-05-18 Outpatient R RAFAELA [facility] [id number] Univers 11:30:00 11:30:00 HENRIQUE ity [facility] 2022-05-11 2022-05-15 Outpatient R ANTONIO [facility] [id number] Univers 07:00:00 16:32:00 RICKY ity [facility] 2022-05-11 2022-05-15 Hospital Romario [facility] 1.2.840.114 [id number] Univers 07:00:00 16:32:00 Encounter Etta Diggs HEALTH 350.1.13.10 ity of Ricky Alvarez CLEAR 4.2.7.2.686 [place] [phone] [facility] [address] (CLC) 2022-05-11 2022-05-11 [facility] 1.2.840.114 [id number] Univers 08:40:00 12:46:00 HEALTH 350.1.13.10 [place] [phone] [facility] [address] (CLC) 2022-05-11 2022-05-11 Orders Doctor ANGELINE 1.2.840.114 [id number] Univers 00:00:00 00:00:00 Only Unassigned, HOANG 350.1.13.10 ity of [facility] 4.2.7.2.686 [place] [phone] [facility] [address] 2022-05-09 2022-05-09 Help Desk Engineer Only, [facility] Test UNIVERSIT 1.2.84 0.114 [id number] Univers 10:15:00 10:30:00 Visit Nya Mtz [facility] 350.1.13.10 ity of CLIN[place] [phone] [facility] [address] 2022-05-09 2022-05-09 Outpatient R SMITH [facility] [id number] Univers 10:15:00 10:15:00 NYA gann [facility] 2022-05-09 2022-05-09 Office Leesa Weathers UNIVERSIT 1.2.84 0.114 [id number] Univers 09:30:00 09:45:00 Visit Nya Mtz [facility] 350.1.13.10 ity of CL[place]ICS [place] [phone] [facility] [address] 2022-05-06 2022-05-06 Pre-Anesth Call, [facility] 1.2.840.114 [id number] Univers 13:05:00 13:10:00 [facility] Phone HEALTH 350.1.13.10 ity of Evaluation [place] 4.2.7.2.[address] [place] [address] [phone] [facility] [address] ([facility]) 2022-04-25 2022-04-25 Office Roselyn Doss [facility] 1.2.840.114 [id number] Univers 11:30:00 11:45:00 Visit HEALTH 350.1.13.10 it y of [place] [address] [id number] [facility] [address] OFFICE BUILDING 2022-04-25 2022-04-25 Outpatient ROSELYN BURRIS [facility] [id number] Univers 11:30:00 11:30:00 ity [facility] 2022-04-24 2022-04-24 Outpatient Leonie SCHULER [facility] [id number] Univers 12:47:37 23:59:00 ANGELA [facility] 2022-04-24 2022-04-24 [facility] 1.2.840.114 [id number] Univers 12:47:37 23:59:00 Encounter Angela SPECIALTY 350.1.13.10 [place] C[place] AT [phone] Co jesenia [address] 2022-04-15 2022-04-15 Outpatient Leonie SCHULER [facility] [id number] Univers 14:15:00 23:59:00 [facility] 2022-04-15 2022-04-15 [facility] [id number] Univers 14:15:00 23:59:00 [facility] 2022-04-15 2022-04-15 [facility] 1.2.840.114 [id number] Univers 14:15:00 23:59:00 Encounter Angela HEALTH 350.1.13.10 it[place] of [place] [phone] [place] [id number] Branch ([facility]) 2022-04-15 2022-04-15 Office [facility] [id number] [id number] Univers 13:30:00 14:00:00 Visit Angela HEALTH 350.1.13.10 i ty of [place] [id number] [address] OFFICE BUILDING 2022-04-15 2022-04-15 Outpatient Leonie FREEMAN [facility] [id number] Univers 08:00:00 08:00:00 MINDI [facility] 2022-04-10 2022-04-10 Letter ANGELINE Johnson 1.2.840.114 [id number] Univers 00:00:00 00:00:00 (Out) Kristin BOLTON 350.1.13.10 it y of HOSPITAL 4.2.7.2.686 [facility] [id number] [facility] [address] 2022-04-09 2022-04-09 Outpatient R IFTIKHAR [facility] [id number] Univers 14:00:00 14:23:00 ANGELINE susan [facility] 2022-04-09 2022-04-09 Urgent Angeline Lugo [facility] 1.2.840.114 [id number] Univers 14:00:00 14:23:00 Care ScottBlanca BORING 350.1.13.10 ity of [facility] 4.2.7.2.686 [facility] [phone] [facility] [address] 2022-04-09 2022-04-09 Outpatient R IFTIKHAR [facility] [id number] Univers 14:00:00 14:23:00 ANGELINE [facility] 2022-04-09 2022-04-09 Outpatient R IFTIKHAR [facility] [id number] Univers 14:00:00 14:23:00 [facility] 2022-03-29 2022-03-29 Telephone [facility] [id number] [id number] Univers 00:00:00 00:00:00 Mindi EDWARD 350.1.13.10 ity [facility] 4.2.7.2.686 [facility] [phone] [facility] [address] DIABETES CLINIC 2022-03-28 2022-03-28 Outpatient MARCUS ROLLINS [facility] [id number] Univers 11:00:00 11:23:07 MARCUS MTZ i [facility] 2022-03-28 2022-03-28 Office Leesa Weathers UNIVERSIT 1.2.84 0.114 [id number] Univers 11:00:00 11:23:07 Visit Marcus Mtz [facility] 350.1.13.10 ity of [facility] 4.2.7.2.686 [facility] [id number] [facility] [address] 2022-03-28 2022-03-28 Outpatient MARCUS ROLLINS [facility] [id number] Univers 11:00:00 11:23:07 MARCUS MTZ i [facility] 2022-03-17 2022-03-17 Outpatient R PETE [facility] [id number] Univers 14:30:00 15:34:47 MINDI gann [facility] 2022-03-17 2022-03-17 Office [facility] 1.2.840.114 [id number] Univers 14:30:00 15:34:47 [facility] 350.1.13.10 ity of [place] [facility] 4.2.7.2.686 [facility] [place] [phone] [address] DIABETES CLINIC 2022-03-14 2022-03-14 Telephone [facility] 1.2.840.114 [id number] Univers 00:00:00 00:00:00 Satish Arora MULTISPEC 350.1.13.10 ity of [facility] 4.2.7.2.686 [facility] [place] [phone] [address] DIABETES CLINIC 2022-03-06 2022-03-06 Outpatient R SAWYER [facility] [id number] Univers 09:26:52 23:59:00 SATISH gann o f [facility] 2022-03-06 2022-03-06 [facility] SARAH Jacques 1.2.840.114 [id number] Univers 09:26:52 23:59:00 Encounter Satish [facility] 350.1.13.10 ity of CLINICS 4.2.7.2.686 [facility] [id number] [facility] [address] 2022-02-24 2022-02-24 Outpatient Leonie PADILLA [facility] [id number] Univers 13:45:00 16:00:58 LEISA gann [facility] 2022-02-24 2022-02-24 Outpatient Leonie PADILLA [facility] [id number] Univers 13:45:00 16:00:58 LEISA gann [facility] 2022-02-24 2022-02-24 Nurse Visit, [facility] Dermatology Nurse ELIGIO RSIT 1.2.840.114 [id number] Univers 13:45:00 14:00:00 Visit Leisa Padilla [facility] 350.1.13.1 0 ity of CLINICS [place] [id number] [facility] [address] 2022-02-21 2022-02-21 Outpatient R SAWYER [facility] [id number] Univers 11:30:00 11:55:08 SATISH gann o [facility] 2022-02-21 2022-02-21 Office Sawyer [facility] 1.2.840.114 [id number] Univers 11:30:00 11:55:08 Visit Satish EDWARD 350.1.13.10 ity of [facility] 4.2.7.2.[place] [id number] [facility] AND [place] [address] DIABETES CLINIC 2022-02-21 2022-02-21 Outpatient R SAWYER [facility] [id number] Univers 11:30:00 11:55:08 SATISH guysusan maldonado [facility] 2022-02-21 2022-02-21 Outpatient R SAWYER [facility] [id number] Univers 11:30:00 11:55:08 SATISH gann o [facility] 2022-02-17 2022-02-17 Outpatient R MARCUS MTZ [facility] [id number] Univers 13:30:00 14:09:40 MARCUS MTZ i [facility] 2022-02-15 2022-02-15 Outpatient R SAWYER [facility] [id number] Univers 13:30:00 13:30:00 SATISH guysusan maldonado [facility] 2022-02-15 2022-02-15 Outpatient R SAWYER [facility] [id number] Univers 13:30:00 13:30:00 SATISH ity o [facility] 2022-02-14 2022-02-14 Office Leesa Weathers UNIVERSIT 1.2.84 0.114 [id number] Univers 10:30:00 10:45:00 Visit Nya Mtz 350.1.13.10 it[place] of CL[place] [id number] [facility] [address] 2022-02-14 2022-02-14 Outpatient Leonie MTZ [facility] [id number] Univers 10:30:00 10:30:00 NYA ity [facility] 2022-02-14 2022-02-14 Outpatient R SMITH [facility] [id number] Univers 10:30:00 10:30:00 NYA sanjuanita [facility] 2022-02-14 2022-02-14 Outpatient R SMITH [facility] [id number] Univers 10:30:00 10:30:00 NYAMcLaren Lapeer Regionsusan [facility] 2022-01-20 2022-01-20 Telephone Rafaela [facility] 1.2.312.989 [id number] Univers 00:00:00 00:00:00 Henrique COLMENARES 350.1.13.10 it y of MEDICINE 4.2.7.2.686 [place] CLINIC - [id number] [address] 2022-01-18 2022-01-18 Office Rafaela [facility] 1.2.840.114 [id number] Univers 09:30:00 10:00:00 Visit Henrique [facility] 350.1.13.10 it y of MEDICINE 4.2.7.2.686 [place] CLINIC - [id number] [address] 2022-01-18 2022-01-18 Outpatient R RAFAELA [facility] [id number] Univers 09:30:00 09:30:00 [facility] 2022-01-16 Emergency [facility] [id number] Univers 18:48:00 23:00:00 SARA ity [facility] 2022-01-16 2022-01-16 Emergency Aviva, TRAUMA 1.2.840.114 [id number] Univers 18:48:00 23:00:00 Sara S CENTER 350.1.13.10 [place] [id number] [address] 2022-01-06 2022-01-06 Emergency X MARCOS RAVI [facility] ERT [id number] Univers 07:57:00 11:54:00 ity [facility] 2022-01-06 2022-01-06 Emergency Marcos Ravi [facility] 1.2.840.114 [id number] Univers 07:57:00 11:54:00 W CENTER 350.1.13.10 [place] [id number] [facility] [address] 2021-12-06 2021-12-06 Orders Doctor ANGELINE 1.2.840.114 [id number] Univers 00:00:00 00:00:00 Only Unassigned, HOANG 350.1.13.10 ity of [place] [facility] 4.2.7.2.686 [place] [id number] [place] [address] Branch 2021-10-28 2021-10-29 Emergency X ARTURO LEOS [facility] ERT 1 [id number] Univers 19:52:00 00:59:00 ARTURO LEOS itsusan [facility] 2021-10-28 2021-10-29 Emergency Leos, TRAUMA 1.2.704.140 [id number] Univers 19:52:00 00:59:00 [facility] 350.1.13.10 it [place] [id number] [facility] [address] 2018-03-23 2018-03-23 AppointTAM [place] [id number] [place] 15:20:00 15:20:00 t; PATRICE RAHMAN, Ph Brigitte Alvarez M.D. 2017-10-20 2017-10-20 [id number] [place] 15:00:00 15:00:00 t; PATRICE RAHMAN, Brigitte Lynn M.D. 2017-07-13 2017-07-13 [facility] [id number] [place] 11:00:00 11:00:00 t; PATRICE RAHMAN, Brigitte Lynn M.D. 2016-11-21 2016-11-21 AppointTAM Posadas [facility] [id number] [place] 16:00:00 16:00:00 t; PATRICE RAHMAN, Brigitte Lynn M.D. 2016-10-01 2016-10-01 AppointTAM [place] [facility]TP [id number] [place] 09:00:00 09:00:00 t; PATRICE RAHMAN, Ph irena IBRAHIM M.D. ryan [facility] Results Test Description Test Time Test Comments [...] 35.0 g/dL 31.6-35.1 RDW-SD (test code = 82123-2) 47.9 fL 39.0-49.9 RDW-CV (test code = 788-0) 12.7 % 12.0-15.5 PLT (test code = 777-3) See_Comment [Au tomated message] The system which ge nerated this result transmit mar reference range: 166 - 35 8 10*3/?L. The reference range was not used to interpret th is result as normal/abnormal . MPV (test code = 12756-4) 9.2 fL 9.5-12.9 L NRBC/100 WBC (test code = See_Comment [ Automated message] The 2254664473) system which ge nerated this result transmit mar reference range: 0.0 - 10 .0 /100 WBCs. The reference r silvino was not used to interpr et this result as normal/abnor mal. NRBC x10^3 (test code = See_Comment [Au tomated message] The 5415189024) system which ge nerated this result transmit mar reference range: 10*3/?L. The reference range was not u sed to interpret this result as normal/abnormal . GRAN MAT (NEUT) % (test code 84.5 % = 770-8) IMM GRAN % (test code = 0.40 % 6816871869) LYMPH % (test code = 736-9) 9.0 % MONO % (test code = 5905-5) 5.8 % EOS % (test code = 713-8) 0.2 % BASO % (test code = 706-2) 0.1 % GRAN MAT x10^3(ANC) (test 15.40 10*3/uL 1.88-7.09 H code = 5857570049) IMM GRAN x10^3 (test code = 0.08 10*3/uL 0.00-0.06 H 8681918536) LYMPH x10^3 (test code = 1.65 10*3/uL 1.32-3.29 731-0) MONO x10^3 (test code = 1.06 10*3/uL 0.33-0.92 H 742-7) EOS x10^3 (test code = 0.03 10*3/uL 0.03-0.39 711-2) BASO x10^3 (test code = 0.01-0.07 704-7) Lab Interpretation (test Abnormal code = 60339-3) [facility] WITH [id number] 09:44:18 Test Item Value Reference Range Interpretation Comments WBC (test code = See_Comment H [Automated 6690-2) message] The system which generated this result transmit mar reference range : 4.30 - 11.10 10*3/?L. The reference range was not used to interpret this result as normal/abnormal . RBC (test code = See_Comment L [Automated 929-8) message] The system which generated this result [...] RDW-SD (test code = 47.9 fL 39.0-49.9 98371-4) RDW-CV (test code = 12.7 % 12.0-15.5 788-0) PLT (test code = See_Comment [Automated 777-3) message] The system which generated this result transmit mar reference range : 166 - 358 10*3/ ?L. The reference range was not u sed to interpret th is result as normal/abnormal . MPV (test code = 9.2 fL 9.5-12.9 L 18256-9) NRBC/100 WBC (test See_Comment [Automat ed code = 6888826285) message] The system which generated this result transmit mar reference range : 0.0 - 10.0 /100 WBCs. The reference range was not used to interpret this result as normal/abnormal . NRBC x10^3 (test code See_Comment [Auto mated = 2592931553) message] The system which generated this result transmit mar reference range : 10*3/?L. The reference range was not used to interpret this result as normal/abnormal . GRAN MAT (NEUT) % 84.5 % (test code = 770-8) IMM GRAN % (test code 0.40 % = 2721939370) LYMPH % (test code = 9.0 % 736-9) MONO % (test code = 5.8 % 5905-5) EOS % (test code = 0.2 % 713-8) BASO % (test code = 0.1 % 706-2) GRAN MAT x10^3(ANC) 15.40 10*3/uL 1.88-7.09 H (test code = 7599387427) IMM GRAN x10^3 (test 0.08 10*3/uL 0.00-0.06 H code = 4265174988) LYMPH x10^3 (test code 1.65 10*3/uL 1.32-3.29 = 731-0) MONO x10^3 (test code 1.06 10*3/uL 0.33-0.92 H = 742-7) EOS x10^3 (test code = 0.03 10*3/uL 0.03-0.39 711-2) BASO x10^3 (test code 0.01-0.07 = 704-7) Lab Interpretation Abnormal (test code = 36575-1) [facility] METABOLIC PANEL (NA, K, CL, CO2, GLUCOSE, BUN, CREATININE, CA)2022-07-12 09:32:34 Test Item Value Reference Range Interpretation Comments NA (test code = 137 mmol/L 135-145 4316051679) K (test code = 4.2 mmol/L 3.5-5.0 1147037818) CL (test code = 110 mmol/L 98-108 H 1559965625) CO2 TOTAL (test code = 26 mmol/L 23-31 8178211145) AGAP (test code = 2-16 L 1190521240) BUN (test code = 10 mg/dL 7-23 0137111469) GLUCOSE (test code = 143 mg/dL 70-110 H 2855397636) CREATININE (test code = 0.67 mg/dL 0.50-1.04 1504027849) CALCIUM (test code = 8.5 mg/dL 8.6-10.6 L 7286019716) eGFR (test code = mL/min/1.73m2 3434331025) MELISSA (test code = MELISSA) Association of [...] tests). Lab Interpretation Abnormal (test code = 37340-2) [facility] (NA, K, CL, CO2, GLUCOSE, BUN, CREATININE, CA)2022-07-12 09:32:34 Test Item Value Reference Range Interpretation Comments NA (test code = 137 mmol/L 135-145 1148518806) K (test code = 4.2 mmol/L 3.5-5.0 6813756108) CL (test code = 110 mmol/L 98-108 H 9996310388) CO2 TOTAL (test code = 26 mmol/L 23-31 8963231192) AGAP (test code = 2-16 L 4150545163) BUN (test code = 10 mg/dL 7-23 0544117053) GLUCOSE (test code = 143 mg/dL 70-110 H 6075461561) CREATININE (test code = 0.67 mg/dL 0.50-1.04 9920537948) CALCIUM (test code = 8.5 mg/dL 8.6-10.6 L 9415224682) eGFR (test code = mL/min/1.73m2 0741270150) MELISSA (test code = MELISSA) Association of [...] tests). Lab Interpretation Abnormal (test code = 29445-1) [facility], [id number] 23:53:52 Test Item Value Reference Range Interpretation Comments PREG SERUM (test code Negative = 2057084799) MELISSA (test code = MELISSA) Less than 10 IU/L. ?If low titer or ectopic is suspected, resubmit specimen in 48-72 hours. [facility], [id number] 23:53:52 Test Item Value Reference Range Interpretation Comments PREG SERUM (test code Negative = 2426316387) MELISSA (test code = MELISSA) Less than 10 IU/L. ?If low titer or ectopic is suspected, resubmit specimen in 48-72 hours. [facility] and Screen - ONCE [id number] 13:50:24 Test Item Value Reference Range Interpretation Comments ABO & RH (test code A Positive Performe d at [facility] = 20) Laboratory Serv ice - [facility] Blood Bank2 [address] [place] [address]37-663 4Toll Free: [phone] 266CLIA No. [id number] IAT (test code = Negative Performed a t [facility] 1185) Laboratory [facility] Blood [place] [phone] 4Toll Free: [phone] 266CLIA No. [id number] [facility] Screen - ONCE [id number] 13:50:24 Test Item Value Reference Range Interpretation Comments ABO & RH (test code A Positive Performe d at [facility] = 20) Laboratory [facility] Blood [address] [place], [place] [phone] 4Toll Free: [phone] 266CLIA No. [id number] IAT (test code = Negative Performed a t [facility] 1185) Laboratory [facility] Blood [address] [phone] 4Toll Free: [phone] 266CLIA No. [id number] [facility] METABOLIC PANEL (NA, K, CL, CO2, GLUCOSE, BUN, CREATININE, CA)2022-06-06 11:12:05 Test Item Value Reference Range Interpretation Comments NA (test code = 134 mmol/L 135-145 L 8981206682) K (test code = 3.9 mmol/L 3.5-5.0 2019044852) CL (test code = 101 mmol/L 98-108 1829696006) CO2 TOTAL (test code = 26 mmol/L 23-31 1898369181) AGAP (test code = 2-16 3245367487) BUN (test code = 9 mg/dL 7-23 8157285011) GLUCOSE (test code = 120 mg/dL 70-110 H 3878168496) CREATININE (test code = 0.74 mg/dL 0.50-1.04 7413203287) CALCIUM (test code = 8.5 mg/dL 8.6-10.6 L 8028660890) eGFR (test code = mL/min/1.73m2 1726058120) MELISSA (test code = MELISSA) Association of [...] tests). Lab Interpretation Abnormal (test code = 06877-7) [facility] WITH [id number] 10:51:00 Test Item Value Reference Range Interpretation Comments WBC (test code = See_Comment H [Automated 9990-2) message] The sy stem which generated this result transmitted reference range : 4.30 - 11.10 10*3/?L. The reference range was not used to interpret this result as normal/abnormal . RBC (test code = See_Comment L [Automated 919-8) message] The sy stem which generated this [...] (test code = 54.9 fL 39.0-49.9 H 15309-1) RDW-CV (test code = 13.9 % 12.0-15.5 788-0) PLT (test code = See_Comment [Automated 777-3) message] The sy stem which generated this result transmitted reference range : 166 - 358 10*3/ ?L. The reference r silvino was not used to interpret this result as normal/abnormal . MPV (test code = 9.4 fL 9.5-12.9 L 32798-7) NRBC/100 WBC (test See_Comment [Automat ed code = 1362348937) message] The system which generated this result transmitted reference range : 0.0 - 10.0 /100 WBCs. The refer ence range was not u sed to interpret th is result as normal/abnormal . NRBC x10^3 (test code See_Comment [Auto mated = 9709486545) message] The s ystem which generated this result transmitted reference range : 10*3/?L. The reference range was not used to interpret this result as normal/abnormal . GRAN MAT (NEUT) % 71.3 % (test code = 770-8) IMM GRAN % (test code 0.30 % = 9000891901) LYMPH % (test code = 19.1 % 736-9) MONO % (test code = 7.7 % 5905-5) EOS % (test code = 1.4 % 713-8) BASO % (test code = 0.2 % 706-2) GRAN MAT x10^3(ANC) 9.62 10*3/uL 1.88-7.09 H (test code = 6699918665) IMM GRAN x10^3 (test 0.04 10*3/uL 0.00-0.06 code = 4031225124) LYMPH x10^3 (test code 2.58 10*3/uL 1.32-3.29 = 731-0) MONO x10^3 (test code 1.04 10*3/uL 0.33-0.92 H = 742-7) EOS x10^3 (test code = 0.19 10*3/uL 0.03-0.39 711-2) BASO x10^3 (test code 0.03 10*3/uL 0.01-0.07 = 704-7) Lab Interpretation Abnormal (test code = 30335-7) [facility] METABOLIC PANEL (NA, K, CL, CO2, GLUCOSE, BUN, CREATININE, CA)2022-06-05 14:05:05 Test Item Value Reference Range Interpretation Comments NA (test code = 135 mmol/L 135-145 2507288687) K (test code = 4.3 mmol/L 3.5-5.0 2674962667) CL (test code = 103 mmol/L 98-108 9481066346) CO2 TOTAL (test code = 25 mmol/L 23-31 4574077246) AGAP (test code = 2-16 5963320312) BUN (test code = 9 mg/dL 7-23 0932361578) GLUCOSE (test code = 131 mg/dL 70-110 H 9210418487) CREATININE (test code = 0.74 mg/dL 0.50-1.04 7823224377) CALCIUM (test code = 8.9 mg/dL 8.6-10.6 7909540714) eGFR (test code = mL/min/1.73m2 5172904470) MELISSA (test code = MELISSA) Association of [...] tests). Lab Interpretation Abnormal (test code = 92823-5) [facility] WITH [id number] 14:00:43 Test Item Value Reference Range Interpretation [...] (test code = 58.9 fL 39.0-49.9 H 47955-6) RDW-CV (test code = 14.5 % 12.0-15.5 788-0) PLT (test code = See_Comment [Automated 777-3) message] The system which generated this result transmit mar reference range : 166 - 358 10*3/ ?L. The reference range was not u sed to interpret th is result as normal/abnormal . MPV (test code = 9.6 fL 9.5-12.9 38232-9) NRBC/100 WBC (test See_Comment [Automat ed code = 8406250877) message] The system which generated this result transmit mar reference range : 0.0 - 10.0 /100 WBCs. The reference range was not used to interpret this result as normal/abnormal . NRBC x10^3 (test code See_Comment [Auto mated = 7981802145) message] The system which generated this result transmit mar reference range : 10*3/?L. The reference range was not used to interpret this result as normal/abnormal . GRAN MAT (NEUT) % 77.1 % (test code = 770-8) IMM GRAN % (test code 0.40 % = 5507801917) LYMPH % (test code = 14.9 % 736-9) MONO % (test code = 6.8 % 5905-5) EOS % (test code = 0.5 % 713-8) BASO % (test code = 0.3 % 706-2) GRAN MAT x10^3(ANC) 11.31 10*3/uL 1.88-7.09 H (test code = 3972221161) IMM GRAN x10^3 (test 0.06 10*3/uL 0.00-0.06 code = 5208109146) LYMPH x10^3 (test code 2.18 10*3/uL 1.32-3.29 = 731-0) MONO x10^3 (test code 0.99 10*3/uL 0.33-0.92 H = 742-7) EOS x10^3 (test code = 0.08 10*3/uL 0.03-0.39 711-2) BASO x10^3 (test code 0.04 10*3/uL 0.01-0.07 = 704-7) Lab Interpretation Abnormal (test code = 02242-3) [facility] [id number] 15:06:36 Test Item Value Reference Range Interpretation Comments ABO & RH (test code A Positive Performe d at [facility] = 20) Laboratory Serv ice - [facility] [address] [place], [place] [address]Toll Free: [phone] 266CLIA No. [id number] IAT (test code = Negative Performed a t [facility] 1185) Laboratory [facility] Blood [place] [address] 4Toll Free: [phone] 266CLIA No. [id number] [facility] [place] [facility] [id number] 15:06:36 Test Item Value Reference Range Interpretation Comments ABO & RH (test code A Positive Performe d at [facility] = 20) Laboratory [facility] Blood [place] [address] 4Toll Free: [phone] 266CLIA No. [id number] IAT (test code = Negative Performed a t [facility] 1185) Laboratory [facility] Blood [place] [address] 4Toll Free: [phone] 266CLIA No. [id number] [facility] [place] [facility] (NA, K, CL, CO2, GLUCOSE, BUN, CREATININE, CA)2022-06-03 09:50:20 Test Item Value Reference Range Interpretation Comments NA (test code = 136 mmol/L 135-145 [id number]) K (test code = 3.7 mmol/L 3.5-5.0 5177691500) CL (test code = 107 mmol/L 98-108 1739953519) CO2 TOTAL (test code = 24 mmol/L 23-31 2174002170) AGAP (test code = 2-16 1552552122) BUN (test code = 13 mg/dL 7-23 9816353103) GLUCOSE (test code = 120 mg/dL 70-110 H [id number]) CREATININE (test code = 0.71 mg/dL 0.50-1.04 0763450459) CALCIUM (test code = 8.4 mg/dL 8.6-10.6 L 8180166693) eGFR (test code = mL/min/1.73m2 2012166415) MELISSA (test code = MELISSA) Association of [...] tests). Lab Interpretation Abnormal (test code = 56870-7) [facility] (NA, K, CL, CO2, GLUCOSE, BUN, CREATININE, CA)2022-06-03 09:50:20 Test Item Value Reference Range Interpretation Comments NA (test code = 136 mmol/L 135-145 1402048391) K (test code = 3.7 mmol/L 3.5-5.0 8975487449) CL (test code = 107 mmol/L 98-108 3112289646) CO2 TOTAL (test code = 24 mmol/L 23-31 7200071335) AGAP (test code = 2-16 1664571575) BUN (test code = 13 mg/dL 7-23 2265880106) GLUCOSE (test code = 120 mg/dL 70-110 H 7226937637) CREATININE (test code = 0.71 mg/dL 0.50-1.04 7895715736) CALCIUM (test code = 8.4 mg/dL 8.6-10.6 L 8830137133) eGFR (test code = mL/min/1.73m2 3450596020) MELISSA (test code = MELISSA) Association of [...] tests). Lab Interpretation Abnormal (test code = 11572-7) [facility] with [id number] 09:40:55 Test Item Value Reference Range Interpretation Comments WBC (test code = See_Comment [Automated 0374-2) message] The sy stem which generated this result transmitted reference range : 4.30 - 11.10 10*3/?L. The reference range was not used to interpret this result as normal/abnormal . RBC (test code = See_Comment L [Automated 686-6) message] The sy stem which generated this [...] (test code = 59.3 fL 39.0-49.9 H 20454-9) RDW-CV (test code = 15.1 % 12.0-15.5 788-0) PLT (test code = See_Comment [Automated 777-3) message] The sy stem which generated this result transmitted reference range : 166 - 358 10*3/ ?L. The reference r silvino was not used to interpret this result as normal/abnormal . MPV (test code = 9.3 fL 9.5-12.9 L 68156-0) NRBC/100 WBC (test See_Comment [Automat ed code = 9319359296) message] The system which generated this result transmitted reference range : 0.0 - 10.0 /100 WBCs. The refer ence range was not u sed to interpret th is result as normal/abnormal . NRBC x10^3 (test code See_Comment [Auto mated = 1487768686) message] The s ystem which generated this result transmitted reference range : 10*3/?L. The reference range was not used to interpret this result as normal/abnormal . GRAN MAT (NEUT) % 59.8 % (test code = 770-8) IMM GRAN % (test code 0.40 % = 0658475936) LYMPH % (test code = 32.0 % 736-9) MONO % (test code = 5.0 % 5905-5) EOS % (test code = 2.4 % 713-8) BASO % (test code = 0.4 % 706-2) GRAN MAT x10^3(ANC) 5.03 10*3/uL 1.88-7.09 (test code = 4310060936) IMM GRAN x10^3 (test 0.03 10*3/uL 0.00-0.06 code = 7732617909) LYMPH x10^3 (test code 2.69 10*3/uL 1.32-3.29 = 731-0) MONO x10^3 (test code 0.42 10*3/uL 0.33-0.92 = 742-7) EOS x10^3 (test code = 0.20 10*3/uL 0.03-0.39 711-2) BASO x10^3 (test code 0.03 10*3/uL 0.01-0.07 = 704-7) Lab Interpretation Abnormal (test code = 78188-9) [facility] with [id number] 09:40:55 Test Item Value Reference Range Interpretation [...] (test code = 59.3 fL 39.0-49.9 H 13971-8) RDW-CV (test code = 15.1 % 12.0-15.5 788-0) PLT (test code = See_Comment [Automated 777-3) message] The sy stem which generated this result transmitted reference range : 166 - 358 10*3/ ?L. The reference r silvino was not used to interpret this result as normal/abnormal . MPV (test code = 9.3 fL 9.5-12.9 L 19564-4) NRBC/100 WBC (test See_Comment [Automat ed code = 4126334365) message] The system which generated this result transmitted reference range : 0.0 - 10.0 /100 WBCs. The refer ence range was not u sed to interpret th is result as normal/abnormal . NRBC x10^3 (test code See_Comment [Auto mated = 5402869038) message] The s ystem which generated this result transmitted reference range : 10*3/?L. The reference range was not used to interpret this result as normal/abnormal . GRAN MAT (NEUT) % 59.8 % (test code = 770-8) IMM GRAN % (test code 0.40 % = 2142741002) LYMPH % (test code = 32.0 % 736-9) MONO % (test code = 5.0 % 5905-5) EOS % (test code = 2.4 % 713-8) BASO % (test code = 0.4 % 706-2) GRAN MAT x10^3(ANC) 5.03 10*3/uL 1.88-7.09 (test code = 1958614951) IMM GRAN x10^3 (test 0.03 10*3/uL 0.00-0.06 code = 7794451798) LYMPH x10^3 (test code 2.69 10*3/uL 1.32-3.29 = 731-0) MONO x10^3 (test code 0.42 10*3/uL 0.33-0.92 = 742-7) EOS x10^3 (test code = 0.20 10*3/uL 0.03-0.39 711-2) BASO x10^3 (test code 0.03 10*3/uL 0.01-0.07 = 704-7) Lab Interpretation Abnormal (test code = 94873-5) [facility] - ONCE [id number] 13:36:01 Test Item Value Reference Range Interpretation Comments ABO & RH (test code A Positive Performe d at [facility] = 20) Laboratory Serv ice - [facility] [address] [place], [place] [address] 4Toll Free: [phone] 266CLIA No. [id number] IAT (test code = Negative Performed a t [facility] 1185) Laboratory Serv [facility] [address] [place], [place] [address] 4Toll Free: [phone] 266CLIA No. [id number] [facility] [place] [facility] - ONCE [id number] 13:36:01 Test Item Value Reference Range Interpretation Comments ABO & RH (test code A Positive Performe d at [facility] = 20) Laboratory Serv [facility] [address] [place], [place] [address] 4Toll Free: [phone] 266CLIA No. [id number] IAT (test code = Negative Performed a t [facility] 1185) Laboratory [facility] [address] [place] [address] 4Toll Free: [phone] 266CLIA No. [id number] [facility] Thyroid [id number] 15:24:00EXAM: US THYROIDDATE: 04/20/2018 3:24 PM CDTINDICATION: [...] samplingor follow-up.3. Nodules classified by consensus TI-Rads criteria.REFERENCE:Xiomarasmaricel FN, Tatyana WD, Kash EG, et al. ACR Thyroid Imaging, Reporting andData System (TI-RADS): White Paper of the ACR TI-RADS Committee. J Am CollRadiol. 2017; 14(5): 587-595.--Read by: David Dolan MDDictated Date/time: 04/20/18 16:34Electronically Signed by: David Dolan MD 04/20/1816:41FINAL REPORTUT PhysiciansUS Thyroid [id number] 16:33:00EXAM: US THYROIDDATE: 02/16/2018 4:06 PM CDTINDICATION: - E04.2 Nontoxic multinodular goiterCOMPARISON: 06/20/2017TECHNIQUE: Multiplanar grayscale and color Doppler ultrasound images of theneck were obtained in the area of the thyroid. DISCUSSION:Thyroid parenchyma: HeterogeneousRight thyroid size: 4.7x 2 x 2.5 cmLeft thyroid size: 3.8 x 1.4 x 1.2 cmThyroid nodule: Subcentimeter echogenic nodules areseen bilaterally vgsdquctw07 x 6 x 7 mm and 6 [...] Radiologists in Ultrasound consensus conferencestatement. Radiology. 2005; [phone].--Read by: Jennifer Hargrove MDDictated Date/time: 02/17/18 11:44Electronically Signed by: Jennifer Hargrove MD 02/17/1811:47FINAL REPORTUT Physicians [[facility], [facility]] T3, [id number] 13:13:01 Test Item Value Reference Range Interpretation Comments T3 Free (test code = T3 Free) 2.90 pg/ml 2.18-3.98 [facility][QL] T4, [id number] 13:13:01 Test Item Value Reference Range Interpretation Comments T4 Free (test code = T4 Free) 0.99 ng/dl 0.76-1.46 [facility][QL] TSH, 3RD [id number] 13:13:01 Test Item Value Reference Range Interpretation Comments TSH (test code = 41162-1) 3.340 {uIU/ml} 0.360-3.740 [facility] Consult [id number] 10:40:00EXAM: US THYROIDDATE: 07/12/2017 10:45 AM CSTINDICATION: [...] in Ultrasound consensus conferencestatement. Radiology. 2005; 2 [phone].--Read by: Jennifer Hargrove MDDictated Date/time: 07/12/17 11:26Electronically Signed by: Jennifer Hargrove MD 07/12/1711:32FINAL REPORTUT Physicians Notes Date/Time Note Provider Source 2023-02-17 14:25:07-00:00 Formatting of this note migh t be different from the original. [facility] - [facility] Elapsed Sedation Time: 19 min. "
[2023-03-15 19:19] LABS: Absolute Lymphocytes (CBC) 1.8 K/uL (0.7-4.9); Lymphocytes % 9.2 % (15.3-44.8); MCV 103.5 fL (80-100); MPV 7.5 fL (7.6-11.3); Platelets 333 thou/uL (152-406); Protime INR 1.01; RBC Red Blood Cell Count 4.05 M/uL (3.86-4.86)
[2023-03-15 19:35] LABS: Magnesium 2.4 mg/dL (1.6-2.4); Potassium 3.6 mEq/L (3.5-5.1); Troponin High Sensitivity 7.4 pg/mL (<58.9)
--- NOTE | 2023-03-15 19:36 | RAD REPORT ---
EXAM DESCRIPTION: RAD - Chest Single View - 03/15/2023 7:03 pm CLINICAL HISTORY: Chest pain;SOB COMPARISON: No comparisons FINDINGS: Lines: None. Lungs: No evidence of edema or pneumonia. Pleural: No significant pleural effusions or pneumothorax. Cardiac: The heart size is within normal limits. Mediastinum: Within normal limits. Bones: No acute fractures. Other: None IMPRESSION: No acute cardiopulmonary disease.
[2023-03-15] MEDS ORDERED: dexAMETHasone 10 MG/ML VIAL ONE (19:43)
[2023-03-15] MEDS ORDERED: LEVALBUTEROL 1.25 MG/3 ML NEB ONE (19:44)
[2023-03-15 20:16] LABS: SARS-CoV-2 Antigen Rapid Res Negative (Negative)
[2023-03-15] MEDS ORDERED: NA CHLORIDE 0.9% 1,000 ML ONE (20:23)
--- NOTE | 2023-03-15 21:18 | RAD REPORT ---
EXAM DESCRIPTION: CT - Chest For Pe Angio - 03/15/2023 8:58 pm CLINICAL HISTORY: Chest pain;SOB COMPARISON: No comparisons TECHNIQUE: Dynamically enhanced axial 3 mm thick images of the chest were obtained during administra tion of <100> mL Isovue 370 IV contrast. Coronal and oblique reconstruction images were generated and reviewed. Exam utilizes a protocol for optimal evaluation of pulmonary arterial tree. Maximum intensity projections 3D imaging was utilized All CT scans are performed using dose optimization technique as appropriate and may include automated exposure control or mA/KV adjustment according to patient size. FINDINGS: Chest Wall: No suspicious thyroid nodules or pathologic lymphadenopathy. Lungs: No acute abnormality. Pleura: No significant effusions or pneumothorax. Mediastinum/aniceto: No pathologic lymphadenopathy. Pulmonary arteries/Aorta: No filling defect identified. No aortic aneurysm. Question enlarged main pu lmonary artery. Heart: No significant pericardial effusion. Normal heart size. Upper abdomen: No acute abnormality.Cirrhotic liver morphology. Small hypervascular focus in a right hepatic lobe on image 1, series 401 . Bones: No acute abnormality. IMPRESSION: Negative for pulmonary embolism. Question enlarged main pulmonary artery which could ind icate pulmonary artery hypertension. Cirrhotic liver morphology. Partially imaged hypervascular focus in the right hepatic lobe. Nonemerge nt hepatic protocol MRI suggested. This may represent a flash fill hemangioma but should be confirmed with a multiphase study.
[2023-03-15 22:22] LABS: Specific Gravity 1.021 (1.005-1.030); Urine Bacteria <20 /HPF (<20); Urine Bilirubin NEGATIVE (Negative); Urine Blood Negative (Negative); Urine Clarity Clear (Clear); Urine Color Colorless (Yellow); Urine Glucose NEGATIVE (Negative); Urine Protein NEGATIVE (Negative); Urine RBC <5 /HPF (None Seen); Urine Urobilinogen Normal (Normal)
--- NOTE | 2023-03-15 22:34 | EDPHYS ---
Physician Documentation [facility] Name: Ivette Joshi Age: 42 yrs Sex: Female : 1980 Arrival Date: 03/15/2023 Time: 17:37 Bed 13 Private MD: EITAN Physician Ministerio Ridley HPI: 03/15 18:15 This 42 yrs old Female presents to ER via Ambulatory with complaints of Shortness Of cp Breath. 18:15 The patient has shortness of breath at rest. Onset: The symptoms/episode began/occurred cp 4 day(s) ago. Duration: The symptoms are continuous, and are steadily getting worse. Associated signs and symptoms: Pertinent positives: chest pain, non-productive cough, Pertinent negatives: diaphoresis, dizziness, fever, vomiting. Severity of symptoms: in the emergency department the symptoms are unchanged despite home interventions. Patient with PMHX significant for COPD. C/o increasing shortness of breath over past 4 days. Worse with exertion. Historical: - PMHx: 18:07 Hashimotos; Hypothyroidism; hysterectomy; Migraine; iw - PSHx: 18:07 back surgery; Tonsillectomy; Total abdominal hysterectomy; iw ROS: 18:20 Constitutional: Negative for fever, poor PO intake. cp 18:20 Eyes: Negative for injury, pain, redness, and discharge. cp 18:20 ENT: Positive for sore throat, Negative for drainage from ear(s), ear pain, difficulty swallowing, difficulty handling secretions. 18:20 Cardiovascular: Positive for chest pain, with cough, Negative for edema, palpitations. 18:20 Respiratory: Positive for cough, with no reported sputum, shortness of breath, at rest. 18:20 Abdomen/GI: Negative for abdominal pain, vomiting, diarrhea, constipation. 18:20 : Negative for urinary symptoms. 18:20 Neuro: Negative for altered mental status, dizziness, weakness. 18:20 All other systems are negative. Exam: 18:25 Constitutional: The patient appears in no acute distress, alert, awake, cp non-diaphoretic, non-toxic, well developed, well nourished, uncomfortable. 18:25 Head/Face: Normocephalic, atraumatic. cp 18:25 Eyes: Periorbital structures: appear normal, Conjunctiva: normal, no exudate, no injection, Sclera: no appreciated abnormality, Lids and lashes: appear normal, bilaterally. 18:25 ENT: External ear(s): are unremarkable, Ear canal(s): are normal, clear, TM's: dullness, bilaterally, Nose: is normal, Mouth: Lips: moist, Oral mucosa: pink and intact, moist, Posterior pharynx: is normal, airway is patent, no erythema, no exudate. 18:25 Neck: ROM/movement: is normal, is supple, no meningismus, no nuchal rigidity. 18:25 Chest/axilla: Inspection: normal. 18:25 Cardiovascular: Rate: tachycardic, Rhythm: regular, Edema: is not appreciated, JVD: is not appreciated. 18:25 Respiratory: the patient does not display signs of respiratory distress, Respirations: labored breathing, that is mild, Breath sounds: bronchial sounds, that are mild, are heard diffusely, decreased breath sounds, that are mild, throughout, stridor, is not appreciated. 18:25 Abdomen/GI: Inspection: abdomen appears normal, Palpation: abdomen is soft and non-tender, in all quadrants. 18:25 Back: pain, is absent, ROM is normal. 18:25 Skin: cellulitis, is not appreciated, no rash present. 18:25 Neuro: Orientation: to person, place \T\ time. Mentation: is normal, Motor: moves all fours, strength is normal, Sensation: is normal. 19:20 ECG was reviewed by the Attending Physician. cp Vital Signs: 18:06 BP 156 / 107; Pulse 121; Resp 19; Temp 99; Pulse Ox 100% on R/A; iw 20:31 BP 145 / 89; Pulse 74; Resp 18; Pulse Ox 98% on R/A; mb9 22:20 BP 138 / 79; Pulse 82; Resp 18; Pulse Ox 99% on R/A; mb9 MDM: 18:13 Patient medically screened. cp 19:00 Differential diagnosis: asthma, Bronchitis CHF exacerbation, Chronic Obstructive cp Pulmonary Disease Myocardial Infarction pneumonia, Pneumothorax pulmonary edema, Pulmonary Embolism Sepsis Unstable Angina. 22:33 Data reviewed: vital signs, nurses notes, lab test result(s), EKG, radiologic studies, cp CT scan, plain films. 22:33 Consideration of Admission/Observation Escalation of care including cp admission/observation considered. I considered the following discharge prescriptions or medication management in the emergency department Medications were administered in the Emergency Department. See MAR. Care significantly affected by the following chronic conditions: Chronic Obstructive Pulmonary Disease. Counseling: I had a detailed discussion with the patient and/or guardian regarding: the historical points, exam findings, and any diagnostic results supporting the discharge/admit diagnosis, lab results, radiology results, the need for outpatient follow up, a family practitioner, to return to the emergency department if symptoms worsen or persist or if there are any questions or concerns that arise at home. Response to treatment: the patient's symptoms have markedly improved after treatment, and as a result, I will discharge patient. 03/15 18:11 Order name: Basic Metabolic Panel; Complete Time: 20:06 cp 03/15 20:06 Interpretation: Normal except: GLUC 198; CRE 1.11; GFR 64; CA 9.0. cp 03/15 18:11 Order name: CBC with Diff; Complete Time: 19:35 cp 03/15 19:35 Interpretation: Normal except: WBC 19.80; MCV 103.5; MPV 7.5; NADYA% 86.3; LYM% 9.2; NEUT cp A 17.1. 03/15 18:11 Order name: D-Dimer; Complete Time: 19:35 cp 03/15 18:11 Order name: Magnesium; Complete Time: 20:06 cp 03/15 18:11 Order name: NT PRO-BNP; Complete Time: 20:06 cp 03/15 18:11 Order name: PT-INR; Complete Time: 19:35 cp 03/15 18:11 Order name: Troponin HS; Complete Time: 20:06 cp 03/15 18:12 Order name: Influenza Screen (a \T\ B); Complete Time: 20:06 cp 03/15 19:15 Order name: SARS-COV-2 Antigen Rapid; Complete Time: 21:19 EDMS 03/15 21:19 Interpretation: Reviewed. cp 03/15 21:19 Order name: Urinalysis W/Microscopic; Complete Time: 22:31 cp 03/15 18:11 Order name: XRAY Chest (1 view); Complete Time: 20:06 cp 03/15 20:06 Order name: CT Chest For PE Angio; Complete Time: 21:49 cp 03/15 18:11 Order name: EKG; Complete Time: 18:12 cp 03/15 18:11 Order name: Cardiac monitoring; Complete Time: : 03/15 18:11 Order name: EKG - Nurse/Tech; Complete Time: 19: cp 03/15 18:11 Order name: IV Saline Lock; Complete Time: 19: 03/15 18:11 Order name: Labs collected and sent; Complete Time: : 03/15 18:11 Order name: O2 Per Protocol; Complete Time: : 03/15 18:11 Order name: O2 Sat Monitoring; Complete Time: : cp EC:20 Rate is 108 beats/min. Rhythm is regular. NH interval is normal. QRS interval is cp normal. QT interval is normal. Interpreted by me. Reviewed by me. Administered Medications: 19:35 Drug: Decadron - Dexamethasone IVP 10 mg Route: IVP; Site: left antecubital; mb9 22:59 Follow up: Response: No adverse reaction mb9 19:45 Drug: Levalbuterol Inhalation 1.25 mg Route: Inhalation; mb9 20:18 Drug: NS 0.9% IV 1000 ml Route: IV; Rate: 1 bolus; Site: left antecubital; mb9 22:40 Drug: AZITHromycin PO 500 mg Route: PO; mb9 22:59 Follow up: Response: No adverse reaction mb9 Disposition Summary: 03/15/23 22:34 Discharge Ordered Location: Home cp Problem: new cp Symptoms: have improved cp Condition: Stable cp Diagnosis - COPD/ Chronic obstructive pulmonary disease with acute lower respiratory infection cp Followup: cp - With: Private Physician - When: 1 - 2 days - Reason: Recheck today's complaints Discharge Instructions: - Discharge Summary Sheet cp - Chronic Obstructive Pulmonary Disease cp Forms: - Medication Reconciliation Form cp - Thank You Letter cp - Antibiotic Education cp - Prescription Opioid Use cp - Patient Portal Instructions cp Prescriptions: - Albuterol Sulfate 2.5 mg /3 mL (0.083 %) Inhalation Solution for Nebulization - inhale 1 unit by NEBULIZATION route every 8 hours As needed; 1 unit; Refills: cp 0, Product Selection Permitted - Zithromax Z-José 250 mg Oral Tablet - take 1 tablet by ORAL route as directed for 5 days Day 1 - take two (2) tablets cp one time. Day 2, 3, 4 , 5 take one (1) tablet once daily.; 6 tablet; Refills: 0, Product Selection Permitted - Prednisone 20 mg Oral Tablet - take 2 tablets by ORAL route once daily for 5 days; 10 tablet; Refills: 0, cp Product Selection Permitted Signatures: Dispatcher [employer] Cheyenne Dick, RN RN iw Ministerio Schneider PA PA cp Breneman, Mary Beth RN RN mb9 Corrections: (The following items were deleted from the chart) 19:15 18:12 SARS-COV-2 RT PCR+MOL.LAB.BRZ ordered. JUAN RAMON DELATORRE
--- NOTE | 2023-03-15 22:34 | ER ---
Nurse's Notes [facility] Name: Ivette Joshi Age: 42 yrs Sex: Female : 1980 Arrival Date: 03/15/2023 Time: 17:37 Bed 13 Private MD: Diagnosis: COPD/ Chronic obstructive pulmonary disease with acute lower respiratory infection Presentation: 03/15 18:06 Chief complaint: Patient states: diff breathing X 4 days, hx of copd. Coronavirus iw screen: Client presents with at least one sign or symptom that may indicate coronavirus-19. Ebola Screen: Patient negative for fever greater than or equal to 101.5 degrees Fahrenheit, and additional compatible Ebola Virus Disease symptoms Patient denies exposure to infectious person. Patient denies travel to an Ebola-affected area in the 21 days before illness onset. No symptoms or risks identified at this time. 18:06 Method Of Arrival: Ambulatory iw 18:06 Acuity: [facility] 3 iw 18:06 Initial Sepsis Screen: Does the patient have a suspected source of infection?. Risk iw Assessment: Do you want to hurt yourself or someone else? Patient reports no desire to harm self or others. Onset of symptoms was March 11, 2023. 18:07 Initial Sepsis Screen: Does the patient meet any 2 criteria? HR > 90 bpm. iw Historical: - PMHx: 18:07 Hashimotos; Hypothyroidism; hysterectomy; Migraine; iw - PSHx: 18:07 back surgery; Tonsillectomy; Total abdominal hysterectomy; iw Screenin:10 [facility] ED Fall Risk Assessment (Adult) History of falling in the last 3 months, mb9 including since admission No falls in past 3 months (0 pts) Confusion or Disorientation No (0 pts) Intoxicated or Sedated No (0 pts) Impaired Gait No (0 pts) Mobility Assist Device Used No (0 pt) Altered Elimination No (0 pt) Score/Fall Risk Level 0 - 2 = Low Risk Oriented to surroundings, Maintained a safe environment, Educated pt \T\ family on fall prevention, incl call for assistance when getting out of bed. Abuse screen: Denies threats or abuse. Nutritional screening: No deficits noted. Tuberculosis screening: No symptoms or risk factors identified. Assessment: 19:27 Reassessment: pt brought back to ER room. mb9 20:30 General: Appears in no apparent distress. Pain: Denies pain. Neuro: Palmer mb9 Agitation-Sedation Scale (RASS): 0 - Alert and Calm Level of Consciousness is awake, alert, obeys commands, Oriented to person, place, time, situation, Appropriate for age. Cardiovascular: Patient's skin is warm and dry. Rhythm is regular. Respiratory: Reports shortness of breath Airway is patent Respiratory effort is even, unlabored, Respiratory pattern is regular, symmetrical, Breath sounds are clear bilaterally. Derm: Skin is pink, warm \T\ dry. Musculoskeletal: Range of motion: intact in all extremities. 21:13 Reassessment: No changes from previously documented assessment. Patient and/or family mb9 updated on plan of care and expected duration. Pain level reassessed. Patient is alert, oriented x 3, equal unlabored respirations, skin warm/dry/pink. 22:20 Reassessment: Patient and/or family updated on plan of care and expected duration. Pain mb9 level reassessed. Patient is alert, oriented x 3, equal unlabored respirations, skin warm/dry/pink. Patient states feeling better. Patient states symptoms have improved. 22:59 Reassessment: Patient and/or family updated on plan of care and expected duration. Pain mb9 level reassessed. Patient is alert, oriented x 3, equal unlabored respirations, skin warm/dry/pink. Patient states feeling better. Patient states symptoms have improved. Vital Signs: 18:06 BP 156 / 107; Pulse 121; Resp 19; Temp 99; Pulse Ox 100% on R/A; iw 20:31 BP 145 / 89; Pulse 74; Resp 18; Pulse Ox 98% on R/A; mb9 22:20 BP 138 / 79; Pulse 82; Resp 18; Pulse Ox 99% on R/A; mb9 ED Course: 17:44 Patient arrived in ED. im 17:46 Ministerio Schneider PA is PHCP. cp 17:46 Rik Guaman MD is Attending Physician. cp 18:06 Triage completed. iw 18:08 Arm band placed on. iw 19:04 XRAY Chest (1 view) In Process Unspecified. EDMS 19:08 Influenza Screen (a \T\ B) Sent. bc6 19:08 Basic Metabolic Panel Sent. bc6 19:08 CBC with Diff Sent. bc6 19:08 D-Dimer Sent. bc6 19:08 Magnesium Sent. bc6 19:08 NT PRO-BNP Sent. bc6 19:08 PT-INR Sent. bc6 19:08 Troponin HS Sent. bc6 19:08 Inserted saline lock: 20 gauge in left antecubital area, using aseptic technique. Blood bc6 collected. 19:16 Influenza Screen (a \T\ B) Sent. pf1 19:16 SARS-COV-2 Antigen Rapid Sent. pf1 19:26 Joyce Hand, RN is Primary Nurse. mb9 20:31 Placed in gown. Bed in low position. Call light in reach. Side rails up X 1. Client mb9 placed on continuous cardiac and pulse oximetry monitoring. NIBP monitoring applied. site monitor on. 21:00 CT Chest For PE Angio In Process Unspecified. EDMS 22:33 Ministerio Ridley MD is Attending Physician. cp 23:00 No provider procedures requiring assistance completed. IV discontinued, intact, mb9 bleeding controlled, No redness/swelling at site. Pressure dressing applied. Administered Medications: 19:35 Drug: Decadron - Dexamethasone IVP 10 mg Route: IVP; Site: left antecubital; mb9 22:59 Follow up: Response: No adverse reaction mb9 19:45 Drug: Levalbuterol Inhalation 1.25 mg Route: Inhalation; mb9 20:18 Drug: NS 0.9% IV 1000 ml Route: IV; Rate: 1 bolus; Site: left antecubital; mb9 22:40 Drug: AZITHromycin PO 500 mg Route: PO; mb9 22:59 Follow up: Response: No adverse reaction mb9 Outcome: 22:34 Discharge ordered by MD. cp 23:00 Discharged to home ambulatory. mb9 23:00 Condition: stable 23:00 Discharge instructions given to patient, Instructed on discharge instructions, follow up and referral plans. Demonstrated understanding of instructions, follow-up care, medications, Prescriptions given X 3. 23:00 Patient left the ED. mb9 Signatures: Dispatcher [employer] EDMS Cheyenne Rios RN RN iw Page, Corey, ASHLEY RAMIREZ cp Joyce Hand RN RN mb9 Finley, Pamala, RN RN pf1 Katelin Oropeza bc6 Marcia Sims Corrections: (The following items were deleted from the chart) 18:08 18:06 Resp 19bpm; Pulse Ox 100% RA; Temp 99F; iw iw 19:15 19:08 SARS-COV-2 RT PCR+MOL.LAB.BRZ drawn and sent. bc6 EDMS
[2023-03-15] MEDS ORDERED: AZITHROMYCIN 250 MG TAB ONE (22:58)
[2023-03-15 23:14] VITALS: TEMP 99
[2023-03-15 23:24] VITALS: BP 138/79; O2SAT 99
--- NOTE | 2023-03-16 14:12 | EKG ---
Test Date: 2023-03-15 Test Time: 19:14:36 Telephone Answering Service Operator: FERNANDO MEASUREMENT RESULTS: Intervals: Rate: 108 NH: 136 QRSD: 82 QT: 334 QTc: 447 [place]: P: 70 NH: 136 QRS: 70 T: 53 INTERPRETIVE STATEMENTS: Sinus tachycardia Otherwise normal ECG No previous ECG available for comparison Electronically Signed On 03-16-23 14:10:37 CDT by Yoni Berry
== END 2023-03-15 23:00 | disposition home or self-care (01) ==
LOC: ER 17:37
DX: J44.0 Chronic obstructive pulmonary disease with (acute) lower respiratory infection (principal); Z20.822 Contact with and (suspected) exposure to COVID-19
CPT/HCPCS: 85025; 81001; 80048; 36415; 83735; 85610; 85379; 84484; 83880; 87804 ×2; 71275; 71045; 87811; Q9967; J7614; J1100; J7030; 93005

== ENCOUNTER → 2023-08-04 | Emergency (ER) | payer OTHER, SELFPAY ==
[~2023-08-04] MED LIST: ALBUTEROL 2.5 MG/3 ML NEB SOL ONE; IPRATROPIUM BROM 0.5MG/2.5ML ONE; METHYLPREDNISOLONE 125 MG INJ ONE; NA CHLORIDE 0.9% 500 ML ONE
--- OUTSIDE RECORDS SUMMARY | 2023-08-04 17:06 | XMS REPORT | Continuity of Care Document ---
Author Name Unknown Address [address] [place] [address] [facility] Address [address] [facility] [address] [place] [address] Care Team Providers Care Dress Designer Name Role Phone PATRICE RAHMAN M.D. Attending Clinician Lavinia crowley Problems Condition Name Condition Details Condition Category Status Onset Date Resolution Date Last Treatment Date Treating Clinician Comments Source GERD (gastroeso phageal reflux disease) GERD (gastroeso phageal reflux disease) Problem Active [facility] Hyperlipid emia Hyperlipid emia Problem Active [facility] Myalgia Myalgia Problem Active [facility] Hypothyroi dism Hypothyroi dism Problem Active [facility] Multinodul ar thyroid Multinodul ar thyroid Problem Active [facility] Globus sensation Globus sensation Problem Active [facility] Allergies, Adverse Reactions, Alerts Allergy Name Allergy Type Status Severity Reaction(s) Onset Date Inactive Date Treating Clinician Comments Source Amoxicil darrel TABS drug allergy Active [facility] Family History Family Member Diagnosis Comments Start Date Stop Date Sourc e Mother Family history of di abetes mellitus [facility] Mother Family history of hypertension [facility] Mother Family history of Hi story of thyroid surgery [facility] Father Family history of di abetes mellitus [facility] Social History Smoking Status Start Date Stop Date Source Current every day smoker [facility] Medications Ordered Medication Name Filled Medication Name Start Date Stop Date Current Medication? Ordering Clinician Indication Dosage Frequency Signature (SIG) Comments Components Source Levothyroxi ne Sodium 125 MCG Oral Tablet Levothyroxi ne Sodium 125 MCG Oral Tablet 2016-08 00:00: 00 Yes PATRICE RAHMAN M.D. 1 QD TAKE 1 TABLET BY MOUTH ONCE DAILY due for follow up, LAST REFILL [facility] Flonase 50 MCG/ACT SUSP Flonase 50 MCG/ACT SUSP Yes QD USE 1 SPRAY IN EACH NOSTRIL ONCE DAILY. [facility] Symbicort 160-4.5 MCG/ACT Inhalation Aerosol Symbicort 160-4.5 MCG/ACT Inhalation Aerosol Yes Q0.5D INHALE 2 PUFFS TWICE DAILY. RINSE MOUTH AFTER USE. [facility] Spiriva HandiHaler 18 MCG Inhalation Capsule Spiriva HandiHaler 18 MCG Inhalation Capsule Yes QD INHALE CONTENTS OF 1 CAPSULE ONCE DAILY. [facility] Vital Signs Vital Name Observation Time Observation Value Comments S ource BP Systolic 2018-03-23 14:57:00 115 mm[Hg] Location : RUE; Position: Sitting [facility] BP Diastolic 2018-03-23 14:57:00 76 mm[Hg] Location : RUE; Position: Sitting [facility] Height 2018-03-23 14:57:00 64 [in_us] [facility] Weight 2018-03-23 14:57:00 216 [lb_av] [facility] Body Mass Index Calculated 2018-03-23 14:57:00 37.08 kg/m2 [facility] Heart Rate 2018-03-23 14:57:00 96 /min [facility] BP Systolic 2017-10-20 13:15:00 127 mm[Hg] Location : RUE; Position: Sitting [facility] BP Diastolic 2017-10-20 13:15:00 83 mm[Hg] Location : RUE; Position: Sitting [facility] Height 2017-10-20 13:15:00 64 [in_us] [facility] Weight 2017-10-20 13:15:00 222 [lb_av] [facility] Body Mass Index Calculated 2017-10-20 13:15:00 38.11 kg/m2 [facility] Heart Rate 2017-10-20 13:15:00 102 /min [facility] BP Systolic 2017-07-13 10:56:00 104 mm[Hg] Location : RUE; Position: Sitting [facility] BP Diastolic 2017-07-13 10:56:00 69 mm[Hg] Location : RUE; Position: Sitting [facility] Height 2017-07-13 10:56:00 64 [in_us] [facility] Weight 2017-07-13 10:56:00 215.2 [lb_av] [facility] Body Mass Index Calculated 2017-07-13 10:56:00 36.94 kg/m2 [facility] Heart Rate 2017-07-13 10:56:00 102 /min [facility] Procedures Procedure Date / Time Performed Performing Clinicia n Source [QLH] T4, FREE 2018-03-23 00:00:00 [facility] [QLH] TSH, 3RD GENERATION 2018-03-23 00:00:00 [facility] [place] Thyroid [id number] 2018-03-23 00:00:00 [facility] [QL[facility]] TSH, 3RD GENERATION 2017-10-20 00:00:00 [facility] [QLH] T4, FREE 2017-10-20 00:00:00 [facility] US Thyroid [id number] 2017-10-20 00:00:00 [facility] [QL[facility]] TSH, 3RD GENERATION 2017-07-13 00:00:00 [facility] [QLH] T4, FREE 2017-07-13 00:00:00 [facility] [QLH] T3, FREE 2017-07-13 00:00:00 [facility] [place] Thyroid [id number] 2017-07-13 00:00:00 [facility] US Thyroid [id number] 2017-06-20 00:00:00 [facility] [place] [id number] 2017-06-20 00:00:00 [facility] History of Appendectomy [facility] History of Tonsillectomy [facility] Plan of Care Planned Activity Planned Date Details Comments Source Diagnostic Test Pending 2019-03-23 00:00:00 [QLH] TSH, 3RD GENERATION [code = [QLH] TSH, 3RD GENERATION] [facility] Diagnostic Test Pending 2019-03-23 00:00:00 [QLH] T4, FREE [code = [QLH] T4, FREE] [facility] Diagnostic Test Pending 2019-03-23 00:00:00 US Thyroid 56537 [code = 00480] [facility] Diagnostic Test Pending 2019-03-23 00:00:00 US Thyroid 92221 [code = 81013] [facility] Diagnostic Test Pending 2019-03-23 00:00:00 US Thyroid 95421 [code = 81982] [facility] Diagnostic Test Pending 2019-03-23 00:00:00 US Thyroid 06573 [code = 90499] [facility] Diagnostic Test Pending 2018-04-22 00:00:00 [QLH] TSH, 3RD GENERATION [code = [QLH] TSH, 3RD GENERATION] [facility] Diagnostic Test Pending 2018-04-22 00:00:00 [QLH] T4, FREE [code = [QLH] T4, FREE] [facility] Diagnostic Test Pending 2018-04-22 00:00:00 US Thyroid 29026 [code = 60200] [facility] Diagnostic Test Pending 2018-01-11 00:00:00 US Thyroid 05981 [code = 57853] [facility] Diagnostic Test Pending 2018-01-11 00:00:00 US Thyroid 17179 [code = 17249] [facility] Diagnostic Test Pending 2018-01-11 00:00:00 US Thyroid 64558 [code = 99570] [facility] Diagnostic Test Pending 2017-10-11 00:00:00 [QLH] TSH, 3RD GENERATION [code = [QLH] TSH, 3RD GENERATION] [facility] Diagnostic Test Pending 2017-10-11 00:00:00 [QLH] T4, FREE [code = [QLH] T4, FREE] [facility] Diagnostic Test Pending 2017-10-11 00:00:00 [QLH] T3, FREE [code = [QLH] T3, FREE] [facility] Diagnostic Test Pending 2017-10-11 00:00:00 [QLH] TSH, 3RD GENERATION [code = [QLH] TSH, 3RD GENERATION] [facility] Diagnostic Test Pending 2017-10-11 00:00:00 [QLH] T4, FREE [code = [QLH] T4, FREE] [facility] Diagnostic Test Pending 2017-10-11 00:00:00 [QLH] T3, FREE [code = [QLH] T3, FREE] [facility] Diagnostic Test Pending 2017-10-11 00:00:00 [QLH] TSH, 3RD GENERATION [code = [QLH] TSH, 3RD GENERATION] [facility] Diagnostic Test Pending 2017-10-11 00:00:00 [QLH] T4, FREE [code = [QLH] T4, FREE] [facility] Diagnostic Test Pending 2017-10-11 00:00:00 [QLH] T3, FREE [code = [QLH] T3, FREE] [facility] Diagnostic Test Pending 2017-06-20 00:00:00 US Thyroid 27270 [code = 65410] [facility] Diagnostic Test Pending 2017-06-20 00:00:00 [place] [id number] [code = 08700] [facility] Encounters Start Date/Time End Date/Time Encounter Type Admission Type Attending Clinicians Care Facility Care Department Encounter ID Source 2018-03-23 15:20:00 2018-03-23 15:20:00 Appointmen t; PATRICE RAHMAN M.D. BILKIS, SAYEEDA, M.D. [facility] [id number] [facility] 2017-10-20 15:00:00 2017-10-20 15:00:00 Appointmen t; PATRICE RAHMAN M.D. BILKIS, SAYEEDA, M.D. [facility] [id number] [facility] 2017-07-13 11:00:00 2017-07-13 11:00:00 Appointmen t; PATRICE RAHMAN M.D. BILKIS, SAYEEDA, M.D. [facility] [id number] [facility] 2016-11-21 16:00:00 2016-11-21 16:00:00 Appointmen t; PATRICE RAHMAN M.D. BILKIS, SAYEEDA, M.D. [facility] [id number] [facility] 2016-10-01 09:00:00 2016-10-01 09:00:00 Appointmen t; PATRICE RAHMAN M.D. BILKIS, SAYEEDA, M.D. [facility] [id number] [facility] Results Test Description Test Time Test Comments Results Result Comments Source [place] [id number] 15:24:00 EXAM: US THYROIDDATE: 04/20/2018 3:24 PM CDTINDICATION: E04.2 Nontoxic multinodular goiter - E04.2 Nontoxicmultinodular goiterADDITIONAL INFORMATION: None.COMPARISON: Thyroid ultrasound 02/16/2018.TECHNIQUE: Multiplanar grayscale and color Doppler ultrasound of the neck wereobtained in the thyroid bed and surrounding soft tiussues.FINDINGS:Thyroi d parenchyma: Diffusely nodular and heterogeneous..Isthmus thickness: 0.2 cm.Right thyroid size: 1.9 x 4.4 x 1.8 cm.Left thyroid size: 1.3 x 3.4 x 1.0 cm.Cervical lymph nodes: Normal.Nodule 1:Location: Mid rightSize: 1.1 x 0.8 x 0.7 cmComposition: Solid or almost completely solid (2 points).Echogenicity: Hyperechoic (1 point).Shape: Taller than wide (3 points).Margins: Smooth (0 points).Echogenic foci: Absent (0 points).Other: None.ACR TI-RADS Score: TR4 - Moderately suspicious (total 4-6 points).ACR recommendation:>=1.5 cm FNA;>=1 cm f/u in1, 2, 3, and 5 years;<1 cm no f/u or FNA. Recommendations: Follow-up in 1, 2, 3 and 5 years.Non-specific cysts/nodules that do not meet criteria for FNA or follow-up:1. Isthmus 0.5 x 0.2 x 0.2 cm [...] samplingor follow-up.3. Nodules classified by consensus TI-Rads criteria.REFERENCE:Tessl er FN, Tatyana WD, Kash EG, et al. ACR Thyroid Imaging, Reporting andData System (TI-RADS): White Paper of the ACR TI-RADS Committee. J Am CollRadiol. 2017; 14(5): 587-595.--Read by: David Dolan MDDictated Date/time: 04/20/18 16:34Electronically Signed by: David Dolan MD 04/20/1816:41FINAL REPORT [facility] Thyroid 13447 16:33:00 EXAM: US THYROIDDATE: 02/16/2018 4:06 PM CDTINDICATION: - E04.2 Nontoxic multinodular goiterCOMPARISON: 06/20/2017TECHNIQUE: Multiplanar grayscale and color Doppler ultrasound images of theneck were obtained in the area of the thyroid. DISCUSSION:Thyroid parenchyma: HeterogeneousRight thyroid size: 4.7 x 2 x 2.5 cmLeft thyroid size: 3.8 x 1.4 x 1.2 cmThyroid nodule: Subcentimeter echogenic nodules are seen bilaterally [id number] x 6 x 7 mm and 6 x 5 x 6 mm on the right side in the mid and lower glandrespectively and 6 x 5 x 5 mm and 6 x 5 x 6 mm on the left side in the lowerpole.The isthmus measures 2.3 mm.IMPRESSION:Heterogene ous thyroid parenchyma containing echogenic nodules versus normalthyroid parenchyma similar to the prior exam. No interval change. __Recommendations for Thyroid Nodules > 1 cmSolitary NoduleMicrocalcification s: Strongly consider US-guided FNA if = 1 [...] abnormal lymph nodes (abnormal morphology such as heterogeneousechotexture , calcifications, cystic area, or short axis diameter [...] nodules would lead bhavani excessive number of biopsies.Reference:Delaney esteban MC, Rubio JASSO, Tony ESPINAL et al. Management of thyroid nodulesdetected at [place]: Society of Radiologists in Ultrasound consensus conferencestatement. Radiology. 2005; 237,944-656.--Read by: Jennifer Hargrove MDDictated Date/time: 02/17/18 11:44Electronically Signed by: Jennifer Hargrove MD 02/17/1811:47FINAL REPORT [facility] T4, [id number] 13:13:01* Test Item Value Reference Range Interpretation Comme nts T4 Free (test code = T4 Free) 0.99 ng/dl 0.76-1.46 [facility]] TSH, 3RD [id number] 13:13:01* Test Item Value Reference Range Interpretation Comme nts TSH (test code = 29784-1) 3.340 {uIU/ml} 0.360-3.740 [facility] Consult [id number] 10:40:00EXAM: US THYROIDDATE: 07/12/2017 10:45 AM CSTINDICATION: - outside study and 2nd read at the requestof the clinicianCOMPARISON: None.TECHNIQUE: Multiplanar grayscale and color Doppler ultrasound images of theneck were obtained in the area of the thyroid. DISCUSSION:Thyroid parenchyma: Heterogeneouswith multiple echogenic nodules scattered sofie background of hypoechoic parenchyma, likely secondaryto underlyingthyroiditis.Right thyroid size: 4.3 x 2.4 x 1.6 cmLeft thyroid size: 4.3 x 1.3 x 1.3 cmThyroid nodule: An echogenic nodule in the right lobe mid gland inferiorlymeasures 9 x 5 mm with a focus of colloid degeneration inferiorly. A 2ndechogenic nodule laterally in the right lobe measures3 mm in diameter.Similarly in echogenic nodule in the left lobe laterally measures 4 x 5 mm.Anothernodule in the left lobe measures 5 x 4 mm. Minimal increased internalvascularity noted in the left lobe.No suspicious microcalcifications are seen within these nodules.Color Doppler flow imaging is limited in this outside study.The isthmus measures 3.4 mm.IMPRESSION:Findings suggests chronic thyroid itis with interspersed subcentimeter echogenicnodules, may represent normal thyroid parenchyma versus nodules. No suspiciousmicrocalcifications are noted.Recommended follow-up imaging in 6 months to ensure stability.Communication: The findings were discussed with Physician: Ivelisse Salcedo 07/11/2017 at 1607 hours. Recommendations for Thyroid Nodules > 1 cmSolitary NoduleMicrocalcifications: Strongly consider US- guided FNA if = 1 cmSolid (or almost entirely solid) or coarse calcifications: Strongly considerUS-guided FNA if = 1.5 cmMixed solid and cystic or almost enti rely cystic with solid mural component:Consider FNA if [...] nodules of similar appearance withoutintervening thyroid parenchyma.NOTE: Recommendationsapply only to nodules 1 cm or larger in size because ofthe uncertainty as to whether or not diagnosis of smaller cancers improves lifeexpectancy, as well as concern that inclusion of smaller nodules w ould lead bhavani excessive number of biopsies.Reference:Emelina MC, Rubio CB, Tony ESPINAL et al. Management of thyroid nodulesdetected at [place]: Society of Radiologists in Ultrasound consensus conferencestatement. Radiology. 2005; 237,634-598.--Read by: Jennifer Hargrove MDDictated Date/time: 07/12/17 11:26Electronically Signed by: Jennifer Hargrove MD 07/12/1711:32FINAL [facility]PORT[facility]
--- NOTE | 2023-08-04 18:39 | RAD REPORT ---
EXAM DESCRIPTION: RADChest Single View08/04/2023 6:31 pm CLINICAL HISTORY: diff breathing COMPARISON: Chest Single View dated 03/15/2023 TECHNIQUE: Portable AP view of the chest. FINDINGS: The lungs are clear. No pneumothorax or effusion. The cardiomediastinal contours are unre markable. IMPRESSION: No acute cardiopulmonary process.
[2023-08-04 20:16] LABS: Absolute Lymphocytes (CBC) 0.5 K/uL (0.7-4.9); Hematocrit 43.3 % (36.0-45.0); Lymphocytes % 4.3 % (15.3-44.8); MPV 7.7 fL (7.6-11.3); Platelets 332 thou/uL (152-406); RBC Red Blood Cell Count 4.17 M/uL (3.86-4.86)
[2023-08-04 20:33] LABS: Magnesium 2.3 mg/dL (1.6-2.4); Troponin High Sensitivity 9.8 pg/mL (<58.9)
--- NOTE | 2023-08-04 20:38 | ER ---
Nurse's Notes [facility] Name: Ivette Joshi Age: 43 yrs Sex: Female : 1980 Arrival Date: 08/04/2023 Time: 17:02 Bed 9 Private MD: Diagnosis: COPD/ Chronic obstructive pulmonary disease with (acute) exacerbation Presentation: 08/04 17:06 Chief complaint: Sinus congestion, headache, SOB, sore throat, and N/V x 2 days. hb Coronavirus screen: Client presents with at least one sign or symptom that may indicate coronavirus-19. Provider contacted for isolation considerations. Ebola Screen: No symptoms or risks identified at this time. Initial Sepsis Screen: Does the patient meet any 2 criteria? HR > 90 bpm. No. Patient's initial sepsis screen is negative. Does the patient have a suspected source of infection? No. Patient's initial sepsis screen is negative. Risk Assessment: Do you want to hurt yourself or someone else? Patient reports no desire to harm self or others. Onset of symptoms was August 03, 2023. 17:06 Method Of Arrival: Ambulatory 17:06 Acuity: [facility] 3 hb Triage Assessment: 20:00 General: Appears in no apparent distress. uncomfortable, ill, Behavior is calm, vc1 cooperative, appropriate for age. Respiratory: Onset: The symptoms/episode began/occurred yesterday, the patient has mild shortness of breath. Historical: - Allergies: 17:07 No Known Allergies; hb - PMHx: 17:07 Hashimotos; Hypothyroidism; hysterectomy; Migraine; COPD; hb - PSHx: 17:07 back surgery; Tonsillectomy; Total abdominal hysterectomy; hb - Immunization history:: Client reports having NOT received the Covid vaccine. Flu vaccine is not up to date. - Social history:: Smoking status: Patient reports the use of cigarette tobacco products, smokes 1.5 packs per day. Screenin:00 [facility] ED Fall Risk Assessment (Adult) History of falling in the last 3 months, vc1 including since admission No falls in past 3 months (0 pts) Confusion or Disorientation No (0 pts) Intoxicated or Sedated No (0 pts) Impaired Gait No (0 pts) Mobility Assist Device Used No (0 pt) Altered Elimination No (0 pt) Score/Fall Risk Level 0 - 2 = Low Risk Oriented to surroundings, Maintained a safe environment, Educated pt \T\ family on fall prevention, incl call for assistance when getting out of bed. 20:11 Abuse screen: Denies threats or abuse. Nutritional screening: No deficits noted. vc1 Tuberculosis screening: No symptoms or risk factors identified. Assessment: 20:30 Pain: Complains of pain in throat. Neuro: Level of Consciousness is awake, alert, obeys vc1 commands, Oriented to person, place, time, situation, Appropriate for age. Cardiovascular: Rhythm is sinus tachycardia. Respiratory: Airway is patent Respiratory effort is even, unlabored, Respiratory pattern is tachypnea. GI: No deficits noted. No signs and/or symptoms were reported involving the gastrointestinal system. : No deficits noted. No signs and/or symptoms were reported regarding the genitourinary system. EENT: Reports pain when swallowing. Derm: No deficits noted. No signs and/or symptoms reported regarding the dermatologic system. 21:15 Reassessment: Patient and/or family updated on plan of care and expected duration. Pain vc1 level reassessed. Patient is alert, oriented x 3, equal unlabored respirations, skin warm/dry/pink. Patient states symptoms have improved. Respiratory: Breath sounds are diminished. Vital Signs: 17:06 BP 174 / 104; Pulse 119; Resp 18; Temp 98.3(TE); Pulse Ox 99% on R/A; Weight 102.06 kg; hb Height 5 ft. 6 in. ; Pain 10/10; 21:00 BP 168 / 98; Pulse 105; Resp 20; Pulse Ox 98% ; vc1 17:06 Body Mass Index 36.32 (102.06 kg, 167.64 cm) hb 17:06 Pain Scale: Adult hb ED Course: 17:03 Patient arrived in ED. rg4 17:03 Kranthi Gallagher MD is Attending Physician. kdr 17:07 Triage completed. hb 17:08 Arm band placed on. hb 18:36 Sabine Hendrix RN is Primary Nurse. jl7 19:00 Patient has correct armband on for positive identification. Bed in low position. Call vc1 light in reach. Pulse ox on. NIBP on. 19:00 Provided Education on: medications. vc1 20:12 Inserted saline lock: 20 gauge in left antecubital area, using aseptic technique. Blood vc1 collected. 21:06 Attending Physician role handed off by Kranthi Gallagher MD cha 21:06 Ministerio Ridley MD is Attending Physician. [facility] 21:16 No provider procedures requiring assistance completed. IV discontinued, intact, vc1 bleeding controlled, No redness/swelling at site. Pressure dressing applied. Administered Medications: 20:11 Drug: MethylPrednisoLONE IVP 125 mg IVP once Route: IVP; Site: left antecubital; vc1 20:11 Drug: DuoNeb Nebulize (2.5 mg - 0.5 mg) 3 ml Nebulizer once Route: Nebulizer; vc1 20:45 Drug: NS 0.9% IV 500 ml IV at bolus once Route: IV; Rate: bolus; Site: left antecubital;vc1 Medication: 21:14 VIS not applicable for this client. vc1 Outcome: 20:38 Discharge ordered by . kdr 21:16 Discharged to home ambulatory, vc1 21:16 Condition: improved 21:16 Discharge instructions given to patient, Instructed on discharge instructions, follow up and referral plans. medication usage, Demonstrated understanding of instructions, follow-up care, medications, Prescriptions given X 3, 21:18 Patient left the ED. vc1 Signatures: Ministerio Ridley MD MD cha Rittger, Kevin, MD MD kdr Jenifer Boss, RN RN Pamela You rg4 Sabine Hendrix RN RN jl7 Aziza Mesa RN RN vc1
--- NOTE | 2023-08-04 20:39 | EDPHYS ---
Physician Documentation [facility] Name: Ivette Joshi Age: 43 yrs Sex: Female : 1980 Arrival Date: 08/04/2023 Time: 17:02 Bed 9 Private MD: ED Physician Ministerio Ridley HPI: 08/04 19:19 This 43 yrs old Female presents to ER via Ambulatory with complaints of Breathing kdr Difficulty. 19:46 Patient presents to the ED with generalized malaise, headache and shortness of breath. kdr She also complains of sore throat with occasional nausea and vomiting over the last 2 days. Patient feels that it is her COPD that is exacerbating. She has had similar episodes before. She has no other complaints at this time. She is nontoxic-appearing on initial presentation. Historical: - Allergies: 17:07 No Known Allergies; hb - PMHx: 17:07 Hashimotos; Hypothyroidism; hysterectomy; Migraine; COPD; hb - PSHx: 17:07 back surgery; Tonsillectomy; Total abdominal hysterectomy; hb - Immunization history:: Client reports having NOT received the Covid vaccine. Flu vaccine is not up to date. - Social history:: Smoking status: Patient reports the use of cigarette tobacco products, smokes 1.5 packs per day. ROS: 19:46 Constitutional: Negative for fever, chills, and weight loss, Eyes: Negative for injury, kdr pain, redness, and discharge, Neck: Negative for injury, pain, and swelling, Cardiovascular: Negative for chest pain, palpitations, and edema, Abdomen/GI: Negative for abdominal pain, nausea, vomiting, diarrhea, and constipation, Back: Negative for injury and pain, : Negative for injury, bleeding, discharge, and swelling, MS/Extremity: Negative for injury and deformity, Skin: Negative for injury, rash, and discoloration, Neuro: Negative for headache, weakness, numbness, tingling, and seizure activity. Psych: Negative for depression, anxiety, suicide ideation, homicidal ideation, and hallucinations, Allergy/Immunology: Negative for hives, rash, and allergies, Endocrine: Negative for neck swelling, polydipsia, polyuria, polyphagia, and marked weight changes, Hematologic/Lymphatic: Negative for swollen nodes, abnormal bleeding, and unusual bruising, 19:46 Respiratory: Positive for cough, with no reported sputum, dyspnea on exertion, shortness of breath, wheezing, Negative for hemoptysis, orthopnea, pleurisy, 19:46 Abdomen/GI: Positive for nausea and vomiting, Occasionally she vomits secondary to kdr gagging with her coughing, Exam: 19:46 Constitutional: This is a well developed, well nourished patient who is awake, alert, kdr and in no acute distress. Head/Face: Normocephalic, atraumatic. Eyes: Pupils equal round and reactive to light, extra-ocular motions intact. Lids and lashes normal. Conjunctiva and sclera are non-icteric and not injected. Cornea within normal limits. Periorbital areas with no swelling, redness, or edema. Neck: Trachea midline, no thyromegaly or masses palpated, and no cervical lymphadenopathy. Supple, full range of motion without nuchal rigidity, or vertebral point tenderness. No Meningismus. Chest/axilla: Normal chest wall appearance and motion. Nontender with no deformity. No lesions are appreciated. Cardiovascular: Regular rate and rhythm with a normal S1 and S2. No gallops, murmurs, or rubs. Normal PMI, no JVD. No pulse deficits. Abdomen/GI: Soft, non-tender, with normal bowel sounds. No distension or tympany. No guarding or rebound. No evidence of tenderness throughout. Back: No spinal tenderness. No costovertebral tenderness. Full range of motion. Skin: Warm, dry with normal turgor. Normal color with no rashes, no lesions, and no evidence of cellulitis. MS/ Extremity: Pulses equal, no cyanosis. Neurovascular intact. Full, normal range of motion. Neuro: Awake and alert, GCS 15, oriented to person, place, time, and situation. Cranial nerves II-XII grossly intact. Motor strength 5/5 in all extremities. Sensory grossly intact. Cerebellar exam normal. Normal gait. Psych: Awake, alert, with orientation to person, place and time. Behavior, mood, and affect are within normal limits. 19:46 Respiratory: the patient does not display signs of respiratory distress, Respirations: normal, Breath sounds: wheezing: that is mild, is heard in the right posterior lower lobe, Vital Signs: 17:06 BP 174 / 104; Pulse 119; Resp 18; Temp 98.3(TE); Pulse Ox 99% on R/A; Weight 102.06 kg; hb Height 5 ft. 6 in. ; Pain 10/10; 21:00 BP 168 / 98; Pulse 105; Resp 20; Pulse Ox 98% ; vc1 17:06 Body Mass Index 36.32 (102.06 kg, 167.64 cm) hb 17:06 Pain Scale: Adult hb MDM: 20:38 Patient medically screened. kdr 20:38 Data reviewed: vital signs, nurses notes. kdr 08/04 17:04 Order name: Basic Metabolic Panel; Complete Time: 20:36 kdr 08/04 17:04 Order name: CBC with Diff kdr 08/04 17:04 Order name: D-Dimer; Complete Time: 20:36 kdr 08/04 17:04 Order name: Magnesium; Complete Time: 20:36 kdr 08/04 17:04 Order name: NT PRO-BNP; Complete Time: 20:36 kdr 08/04 17:04 Order name: Troponin HS; Complete Time: 20:36 kdr 08/04 17:48 Order name: COVID-19 SARS RT PCR; Complete Time: 21:12 kdr 08/04 17:48 Order name: Flu; Complete Time: 21:12 kdr 08/04 17:48 Order name: Strep; Complete Time: 20:36 kdr 08/04 18:39 Order name: RAD; Complete Time: 18:55 EDMS 08/04 17:04 Order name: EKG; Complete Time: 19:13 kdr 08/04 17:04 Order name: IV Saline Lock; Complete Time: 20:11 kdr 08/04 17:04 Order name: Labs collected and sent; Complete Time: 20:11 kdr 08/04 17:04 Order name: O2 Per Protocol; Complete Time: 18:37 kdr 08/04 17:04 Order name: O2 Sat Monitoring; Complete Time: 18:37 kdr Administered Medications: 20:11 Drug: MethylPrednisoLONE IVP 125 mg IVP once Route: IVP; Site: left antecubital; vc1 20:11 Drug: DuoNeb Nebulize (2.5 mg - 0.5 mg) 3 ml Nebulizer once Route: Nebulizer; vc1 20:45 Drug: NS 0.9% IV 500 ml IV at bolus once Route: IV; Rate: bolus; Site: left antecubital;vc1 Disposition Summary: 12/29/23 20:38 Discharge Ordered Notes: Location: Home kdr Problem: new kdr Symptoms: have improved kdr Condition: Stable kdr Diagnosis - COPD/ Chronic obstructive pulmonary disease with (acute) exacerbation kdr Followup: kdr - With: Private Physician - When: 2 - 3 days - Reason: If symptoms return, Further diagnostic work-up, Recheck today's complaints, Continuance of care, Re-evaluation by your physician Discharge Instructions: - Discharge Summary Sheet kdr Forms: - Medication Reconciliation Form kdr - Thank You Letter kdr - Antibiotic Education kdr - Patient Portal Instructions kdr - Leadership Thank You Letter kdr Prescriptions: - albuterol sulfate 90 mcg/actuation Inhalation Aerosol Powder, Breath Activated - administer 2 inhalation INHALATION route every 4 hours As needed Dispense two kdr canisters; 2 Unspecified; Refills: 0, Product Selection Permitted - Medrol (José) 4 mg Oral Tablets, Dose Pack - take 1 tablet ORAL route as directed - follow package instructions; 1 packet; kdr Refills: 0, Product Selection Permitted - Tamiflu 75 mg Oral capsule - take 1 tablet ORAL route every 12 hours for 5 days; 10 tablet; Refills: 0, kdr Product Selection Permitted Signatures: Dispatcher [employer] EDMS Elise Mcpherson, GAS DESULFURIZER-C GAS DESULFURIZER-Kranthi Albright MD MD kdr Jenifer Boss RN RN Aziza Mesa RN RN vc1 Corrections: (The following items were deleted from the chart) 19:35 19:12 Chest Single View+RAD.[email or web address] ordered. EDTN EDMS
[2023-08-04 21:26] LABS: Blood Morphology Comment NOT SEEN (NOT SEEN); Platelet Estimate ADEQ
[2023-08-04 22:36] VITALS: BP 168/98; TEMP 98.3; O2SAT 98
== END ==
LOC: ER 17:02
DX: J44.1 Chronic obstructive pulmonary disease with (acute) exacerbation (principal); Z11.52 Encounter for screening for COVID-19
CPT/HCPCS: 36415; 71045; 80048; 83735; 83880; 84484; 85025; 85379; 87081; 87635; 87804; 94640; 96374; 99285; J2930; J7040; J7613; J7644

== ENCOUNTER 2024-07-29 21:40 | Emergency (ER) | payer SELFPAY ==
--- OUTSIDE RECORDS SUMMARY | 2024-07-29 21:49 | XMS REPORT | Continuity of Care Document ---
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 10-15 20:00: 00 Yes 10mg 10 mg, Oral, TID, First dose (after last modificati on) on [facility] 10/15/22 at 1400, Until Discontinu ed, Routine [facility] tiZANidine 4 mg capsule 10-15 18:22: 07 10-15 00:00 :00 No 4mg Take 1 capsule by mouth in the morning and 1 capsule at noon and 1 capsule in the evening. [facility] budesonide- formoteroL 160-4.5 mcg/actuati on inhaler 10-15 18:22: 05 Yes 2{puff} Inhale 2 Puffs. [facility] FLUTICASONE PROPIONATE NASAL 10-15 18:22: 05 Yes 50ug Use 50 mcg in each nostril once daily as needed for Other (allergies ). [facility] tiotropium (SPIRIVA WITH HANDIHALER) 18 mcg inhalation 10-15 18:22: 05 Yes 1 cap(s) [facility] omeprazole 40 mg capsule 10-15 18:22: 05 Yes 40mg Take 1 capsule by mouth in the morning. Takes at night per patient [facility] ALBUTEROL INHALE 10-15 18:22: 05 Yes 8.5mg Inhale 8.5 mg every 4 (four) hours as needed (wheezing) . [facility] pregabalin (LYRICA) capsule 150 mg 10-15 15:15: 00 Yes 150mg 150 mg, Oral, TID, First dose (after last modificati on) on 10/15/22 at 0915, Until Discontinu ed, Routine [facility] oxyCODONE immediate release tablet 5 mg 10-15 15:10: 30 Yes 5mg 5 mg, Oral, Q6HPRN, Starting on 10/15/22 at 0910, Until Discontinu ed, Routine, Pain (scale 4-6)
[facility] : MARCIO WOODRUFF [facility] enoxaparin (LOVENOX) injection 40 mg 10-15 15:00: 00 Yes 40mg 40 mg, Subcutaneo us, DAILY, First dose on [facility] 10/15/22 at 0900, Until Discontinu ed, Routine [facility] Fluticasone -Salmeterol (ADVAIR) 500-50 mcg/dose inhalation disk 1 Puff 10-15 14:00: 00 Yes 1{puff} 1 Puff, Inhalation , Q12H, First dose on [facility] 10/15/22 at 0800, Until Discontinu ed, Routine [facility] omeprazole (PRILOSEC) capsule 40 mg 10-15 11:30: 00 Yes 40mg 40 mg, Oral, Q24H, First dose on Mon10/15/22 at 0530, Until Discontinu ed, Routine [facility] dexamethaso ne sod phos PF injection 8 mg 10-15 08:00: 00 10-18 06:59 :00 No 8mg 8 mg, Intravenou s, Q12H ABX, 6 doses, First dose (after last reorder) on 10/15/22 at 0200, Last dose on Mon10/17/22 at 1400, 1 mL [facility] diazePAM (VALIUM) tablet 5 mg 10-15 02:00: 00 10-15 15:11 :22 No 5mg 5 mg, Oral, TID, First dose (after last reorder) on Mon10/14/22 at 2000, Until Discontinu ed, Routine [facility] methylPREDN ISolone 4 mg tablets 10-15 00:00: 00 Yes [id number] Take by mouth SEE-INSTRU CTIONS. follow package directions [facility] TAKE BY MOUTH DIRECTED ON INSIDE OF PACKAGE 10-15 00:00: 00 Yes Erasto Hopkins Take 1 tablet by mouth every six hours as needed for pain max 4/day 10-15 00:00: 00 Yes 5 Erasto Hopkins TAKE 1 TABLET BY MOUTH 4 TIMES DAILY 10-15 00:00: 00 12-06 00:00 :00 No Erasto Hopkins ketorolac 10 mg tablet 10-15 00:00: 00 11-03 00:00 :00 No [id number] 10mg Take 1 tablet by mouth every 6 (six) hours as needed for Pain (scale 7-10). [facility] HYDROcodone -acetaminop hen 5-325 mg tablet 10-15 00:00: 00 10-23 04:59 :00 No [id number] 1{tbl} Take 1 tablet by mouth every 4 (four) hours as needed for Pain (scale 7-10) for up to 7 days. Indication s: acute pain [facility] methocarbam oL 500 mg tablet 10-15 00:00: 00 10-18 00:00 :00 No [id number] 500mg Take 1 tablet by mouth 4 (four) times daily. [facility] ketorolac (TORADOL) injection 30 mg 10-15 00:00: 00 10-15 17:39 :00 No 30mg 30 mg, Slow IV Push, Q6H, 4 doses, First dose on Mon10/14/22 at 1800, Last dose on Mon10/15/22 at 1200, Routine [facility] bisacodyL (DULCOLAX) tablet 10 mg 10-14 23:19: 08 Yes 10mg 10 mg, Oral, QDAILYPRN, Starting on Mon10/14/22 at 1719, Until Discontinu ed, Routine, Constipati on [facility] HYDROcodone -acetaminop hen (NORCO 5) 5-325 mg tablet 1 tablet 10-14 23:19: 08 10-15 15:11 :21 No 1{tbl} 1 tablet, Oral, Q6HPRN, Starting on Mon10/14/22 at 1719, Until 10/15/22 at 0911, Routine, Pain (scale 4-6) [facility] diazePAM (VALIUM) tablet 5 mg 10-14 20:30: 00 10-14 19:46 :00 No 5mg 5 mg, Oral, ONCE, 1 dose, On Mon10/14/22 at 1430, Routine [facility] dexamethaso ne sod phos PF injection 10 mg 10-14 20:30: 00 10-14 19:45 :00 No 10mg 10 mg, Intravenou s, ONCE, 1 dose, On Mon10/14/22 at 1430, 1 mL [facility] cyclobenzap rine (FLEXERIL) tablet 5 mg 10-14 20:00: 00 10-15 15:11 :54 No 5mg 5 mg, Oral, TID, First dose on Mon10/14/22 at 1400, Until Discontinu ed, Routine [facility] HYDROcodone -acetaminop hen (NORCO 5) 5-325 mg tablet 1 tablet 10-14 19:45: 00 10-14 19:32 :00 No 1{tbl} 1 tablet, Oral, ONCE, 1 dose, On Mon10/14/22 at 1345, TALIA [facility] NaCl 0.9% (NS) bolus infusion 1,000 mL 10-14 19:00: 00 10-14 19:00 :00 No 1000mL at 999 mL/hr, 1,000 mL, IV Infusion, ONCE, 1 dose, On Mon10/14/22 at 1300, TALIA [facility] diclofenac 75 mg EC tablet 3-10 00:00: 00 11-03 00:00 :00 No [id number] 75mg Take 1 tablet by mouth in the morning and 1 tablet in the evening. Take with meals. Do all this for 30 days. [facility] methylPREDN ISolone (MEDROL, UNA,) 4 mg tablets 3- 00:00: 00 10-15 00:00 :00 No [id number] 84mg Take 21 tablets by mouth SEE-INSTRU CTIONS. follow package directions [facility] pregabalin (LYRICA) 150 mg capsule 3 00:00: 00 11-03 00:00 :00 No [id number] 150mg Take 1 capsule by mouth in the morning and 1 capsule at noon and 1 capsule in the evening. [facility] pregabalin (LYRICA) 150 mg capsule 10-12 00:00: 10-12 00:00 :00 No [id number] 150mg Take 1 capsule by mouth in the morning and 1 capsule at noon and 1 capsule in the evening. [facility] gadoteridol (PROHANCE-2 0 mL) injection 20.24 mL 10-07 18:00: 00 10-07 17:56 :00 No [id number] .2mL/kg 20.24 mL (0.2 mL/kg ?101.2 kg), Intravenou s, ONCE, 1 dose, On Mon10/07/22 at 1200, Routine [facility] cyclobenzap rine 10 mg tablet 2-22 00:00: 00 03-28 00:00 :00 No [facility] tiZANidine 4 mg tablet 2-16 00:00: 00 10-15 00:00 :00 No 4mg Take 1 tablet by mouth in the morning and 1 tablet at noon and 1 tablet in the evening. [facility] tiotropium (SPIRIVA WITH HANDIHALER) 18 mcg inhalation 2-15 14:26: 22 Yes 1 cap(s) [facility] omeprazole 40 mg capsule 2-15 14:26: 22 Yes 1{capsu le} Take 1 capsule by mouth in the morning. [facility] tiZANidine 4 mg capsule 2-15 00:00: 00 10-15 00:00 :00 No [id number] 4mg Take 1 capsule by mouth 3 (three) times daily as needed for Muscle Spasms. [facility] meloxicam 7.5 mg tablet 2-15 00:00: 00 10-14 00:00 :00 No [id number] 7.5mg Take 1 tablet by mouth in the morning. [facility] TAKE 1 TABLET BY MOUTH ONCE DAILY 2-13 00:00: 00 Yes Erasto Hopkins pregabalin (LYRICA) 150 mg capsule 09-05 00:00: 00 10-12 00:00 :00 No [id number] 150mg Take 1 capsule by mouth in the morning and 1 capsule in the evening. [facility] tiotropium (SPIRIVA WITH HANDIHALER) 18 mcg inhalation 09-02 13:03: 41 Yes 1 cap(s) [facility] omeprazole 40 mg capsule 09-02 13:03: 41 Yes 1{capsu le} Take 1 capsule by mouth in the morning. [facility] pregabalin (LYRICA) 75 mg capsule 1-20 00:00: 00 09-05 00:00 :00 No [id number] 75mg Take 1 capsule by mouth in the morning and 1 capsule at noon and 1 capsule in the evening. [facility] HYDROcodone -acetaminop hen (NORCO) 10-325 mg tablet 1-02 00:00: 00 08-16 05:59 :00 No [id number] 1{tbl} Take 1 tablet by mouth every 4 (four) hours as needed for Pain (scale 7-10) for up to 7 days. Indication s: acute pain [facility] methylPREDN ISolone (MEDROL, UNA,) 4 mg tablets 2021-08 00:00: 00 08-09 05:59 :00 No Take by mouth SEE-INSTRU CTIONS for 6 days. follow package directions [facility] tiZANidine 4 mg capsule 2021-08 00:00: 00 09-21 00:00 :00 No [id number] 4mg Take 1 capsule by mouth 3 (three) times daily as needed for Muscle Spasms. [facility] HYDROcodone -acetaminop hen (NORCO) 10-325 mg tablet 2021-08 00:00: 00 11-17 00:00 :00 No [id number] 1{tbl} Take 1 tablet by mouth every 6 (six) hours as needed for Pain (scale 7-10). Indication s: acute pain [facility] HYDROcodone -acetaminop hen (NORCO) 10-325 mg tablet 2021-08 00:00: 00 07-22 00:00 :00 No [id number] 1{tbl} Take 1 tablet by mouth every 6 (six) hours as needed for Pain (scale 7-10) for up to 7 days. Indication s: acute pain [facility] budesonide- formoteroL 160-4.5 mcg/actuati on inhaler 2021-08 18:45: 02 Yes 2{puff} Inhale 2 Puffs. [facility] FLUTICASONE PROPIONATE NASAL 2021-08 18:45: 02 Yes 50ug Use 50 mcg in each nostril once daily as needed for Other (allergies ). [facility] ALBUTEROL INHALE 2021-08 18:45: 02 Yes 8.5mg Inhale 8.5 mg every 4 (four) hours as needed (wheezing) . [facility] enoxaparin (LOVENOX) injection 40 mg 2021-08 15:00: 00 Yes 40mg 40 mg, Subcutaneo us, Q24H, First dose on Mon07/12/22 at 0900, Until Discontinu ed, Routine [facility] docusate (COLACE) capsule 100 mg 2021-08 15:00: 00 Yes 100mg 100 mg, Oral, DAILY, First dose on Mon07/12/22 at 0900, Until Discontinu ed, Routine [facility] budesonide- formoteroL 160-4.5 mcg/actuati on inhaler 2021-08 14:45: 00 Yes 2{puff} Inhale 2 Puffs. [facility] FLUTIC[facility]ONE PROPIONATE NASAL 2021-08 14:45: 00 Yes 50ug Use 50 mcg in each nostril once daily as needed for Other (allergies ). [facility] ALBUTEROL INHALE 2021-08 14:45: 00 Yes 8.5mg Inhale 8.5 mg every 4 (four) hours as needed (wheezing) . [facility] levothyroxi ne (SYNTHROID) tablet 137 mcg 2021-08 03:30: 00 Yes 137ug 137 mcg, Oral, Q24H, First dose on Mon07/11/22 at 2130, Until Discontinu ed, Routine [facility] pantoprazol e (PROTONIX) EC tablet 40 mg 2021-08 03:00: 00 Yes 40mg 40 mg, Oral, QHS, First dose on Mon07/11/22 at 2100, Until Discontinu ed, Routine [facility] FLUoxetine (PROZAC) capsule 10 mg 2021-08 02:30: 00 Yes 10mg 10 mg, Oral, DAILY, First dose (after last modificati on) on Mon07/11/22 at 2030, Until Discontinu ed [facility] pregabalin (LYRICA) capsule 150 mg 2021-08 02:00: 00 Yes 150mg 150 mg, Oral, TID, First dose on Mon07/11/22 at 2000, Until Discontinu ed, Routine [facility] tiZANidine 4 mg tablet 2021-08 00:00: 00 08-03 05:59 :00 No [id number] 4mg Take 1 tablet by mouth in the morning and 1 tablet at noon and 1 tablet in the evening. Do all this for 21 days. [facility] sennosides 8.6 mg tablet 2021-08 00:00: 00 07-28 05:59 :00 No [id number] 8.6mg Take 1 tablet by mouth in the morning for 15 days. [facility] HYDROcodone -acetaminop hen 5-325 mg tablet 2021-08 00:00: 00 07-20 05:59 :00 No [id number] 1{tbl} Take 1 tablet by mouth every 4 (four) hours as needed for Pain (scale 7-10) for up to 7 days. Indication s: acute pain [facility] docusate 100 mg capsule 2021-08 00:00: 00 07-20 05:59 :00 No [id number] 100mg Take 1 capsule by mouth in the morning and 1 capsule in the evening. Do all this for 7 days. [facility] HYDROcodone -acetaminop hen (NORCO) 10-325 mg tablet 2021-08 00:00: 00 07-18 00:00 :00 No [id number] 1{tbl} Take 1 tablet by mouth every 4 (four) hours as needed for Pain (scale 7-10) for up to 7 days. Indication s: acute pain [facility] ceFAZolin in 0.9% sodium chloride (ANCEF) 2 gram/100 mL RTU 2 g 2021-08 23:00: 00 07-13 22:59 :00 No 2000mg 2 g (2,000 mg), IV Piggyback, Q8H ABX, 6 doses, First dose on Mon07/11/22 at 1700, Last dose on Mon07/13/22 at 0900, Administer over 30 Minutes, 100 mL
Reas on for Anti-Infec tive: Surgical Prophylaxi s
Surgi benjie Prophylaxi s: Neurosurge ry
Dura tion of therapy: within 24 hours of surgery [facility] tiZANidine (ZANAFLEX) tablet 4 mg 2021-08 20:00: 00 Yes 4mg 4 mg, Oral, TID, First dose on Mon07/11/22 at 1400, Until Discontinu ed [facility] NaCl 0.9% (NS) IV infusion 1,000 mL 2021-08 19:30: 00 Yes 1000mL at 42 mL/hr, IV Infusion, CONTINUOUS , Starting on Mon07/11/22 at 1330, Until Discontinu ed, Routine [facility] ondansetron (ZOFRAN (PF)) injection 4 mg 2021-08 18:16: 58 Yes 4mg 4 mg, Slow IV Push, Q6HPRN, Starting on Mon07/11/22 at 1216, Until Discontinu ed, Routine, Nausea and Vomiting (N/V) [facility] HYDROcodone -acetaminop hen (NORCO 5) 5-325 mg tablet 1 tablet 2021-08 18:16: 58 Yes 1{tbl} 1 tablet, Oral, Q4HPRN, Starting on Mon07/11/22 at 1216, Until Discontinu ed, Routine, Pain (scale 7-10) [facility] acetaminoph en (TYLENOL) tablet 650 mg 2021-08 18:16: 58 Yes 650mg 650 mg, Oral, Q4HPRN, Starting on Mon07/11/22 at 1216, Until Discontinu ed, Routine, Pain (scale 1-3) [facility] ketorolac (TORADOL) injection 30 mg 2021-08 18:16: 58 07-14 18:15 :58 No 30mg 30 mg, Slow IV Push, Q6HPRN, Starting on Mon07/11/22 at 1216, Until Torie 07/14/22 at 1215, Routine, Pain (scale 4-6) [facility] HYDROcodone -acetaminop hen (NORCO 5) 5-325 mg tablet 1 tablet 2021-08 18:00: 00 07-11 18:54 :00 No 1{tbl} 1 tablet, Oral, ONCE, 1 dose, On Mon07/11/22 at 1200, Routine, PACU [facility] FENTanyl PF (SUBLIMAZE (PF)) injection 25 mcg 2021-08 17:57: 59 07-11 21:00 :00 No 25ug 25 mcg, Slow IV Push, Q5MIN PRN, 4 doses, Starting on Mon07/11/22 at 1157, Until Discontinu ed, Routine, Pain (scale 4-6), PACU [facility] HYDROmorphO ne (DILAUDID) injection 0.2 mg 2021-08 17:57: 59 07-11 22:01 :42 No .2mg 0.2 mg, Slow IV Push, Q5MIN PRN, 10 doses, Starting on Mon07/11/22 at 1157, Until Mon07/11/22 at 1601, Routine, Pain (scale 7-10), PACU
Us e approved by (Faculty): PACU USE -ANESTHESI A SERVICE-HY DROMORPHON E INJECTIONS [facility] gentamicin 80 mg, vancomycin (VANCOCIN) 1,000 mg in NaCl 0.9% (NS) 3,000 mL OR irrigation 2021-08 16:09: 00 07-11 18:20 :28 No PRN, Starting on Mon07/11/22 at 1009, Intra-op [facility] thrombin (THROMBINAR ) spray 2021-08 16:06: 00 07-11 18:20 :28 No PRN, Starting on Mon07/11/22 at 1006, Until Mon07/11/22 at 1220, Routine, Intra-op [facility] lidocaine-e pinephrine (XYLOCAINE WITH EPINEPHRINE ) 1 %-1:100,000 injection 2021-08 15:27: 00 07-11 18:20 :28 No PRN, Starting on Mon07/11/22 at 0927, Until Mon07/11/22 at 1220, Routine, Intra-op [facility] gadoteridol (PROHANCE-2 0 mL) injection 19.68 mL 2021-08 22:30: 00 06-29 22:20 :00 No [id number] .2mL/kg 19.68 mL (0.2 mL/kg ?98.4 kg), Intravenou s, ONCE, 1 dose, On Mon06/29/22 at 1630, Routine [facility] cephALEXin (KEFLEX) 500 mg capsule 2021-08 00:00: 00 07-08 05:59 :00 No [id number] 500mg Take 1 capsule by mouth 4 (four) times daily for 10 days. [facility] HYDROcodone -acetaminop hen (NORCO) 5-325 mg tablet 2021-08 00:00: 00 07-05 05:59 :00 No [id number] 1{tbl} Take 1 tablet by mouth every 4 (four) hours as needed for Pain (scale 7-10) for up to 7 days. Indication s: acute pain [facility] methylPREDN ISolone (MEDROL, UNA,) 4 mg tablets 2021-08 00:00: 00 07-02 00:00 :00 No [id number] Take by mouth SEE-INSTRU CTIONS. follow package directions [facility] FLUTICASONE PROPIONATE NASAL 2021-08 14:06: 31 Yes 50ug Use 50 mcg in each nostril once daily as needed for Other (allergies ). [facility] budesonide- formoteroL 160-4.5 mcg/actuati on inhaler 2021-08 09:23: 56 Yes 2{puff} Inhale 2 Puffs. [facility] ALBUTEROL INHALE 2021-08 09:23: 56 Yes 8.5mg Inhale 8.5 mg every 4 (four) hours as needed (wheezing) . [facility] FLUoxetine (PROZAC) capsule 10 mg 2021-08 14:00: 00 Yes 10mg 10 mg, Oral, DAILY, First dose on Mon06/06/22 at 0900, Until Discontinu ed [facility] budesonide- formoteroL 160-4.5 mcg/actuati on inhaler 2021-08 12:36: 41 Yes 2{puff} Inhale 2 Puffs. [facility] FLUTICASONE PROPIONATE NASAL 2021-08 12:36: 41 Yes 50ug Use 50 mcg in each nostril once daily as needed for Other (allergies ). [facility] ALBUTEROL INHALE 2021-08 12:36: 41 Yes 8.5mg Inhale 8.5 mg every 4 (four) hours as needed (wheezing) . [facility] levothyroxi ne (SYNTHROID) tablet 137 mcg 2021-08 11:00: 00 Yes 137ug 137 mcg, Oral, QAM-0600, First dose on 06/06/22 at 0600, Until Discontinu ed, Routine [facility] omeprazole 40 mg capsule 2021-08 10:47: 39 06-06 00:00 :00 No 40mg Take 40 mg by mouth at bedtime. [facility] pantoprazol e (PROTONIX) EC tablet 40 mg 2021-08 02:00: 00 Yes 40mg 40 mg, Oral, QHS, First dose on 06/05/22 at 2100, Until Discontinu ed, Routine [facility] amitriptyli ne (ELAVIL) tablet 25 mg 2021-08 02:00: 00 Yes 25mg 25 mg, Oral, QHS, First dose on 06/05/22 at 2100, Until Discontinu ed, Routine [facility] docusate (COLACE) capsule 100 mg 2021-08 01:00: 00 Yes 100mg 100 mg, Oral, BID, First dose on Mon06/05/22 at 1999, Until Discontinu ed, Routine [facility] budesonide- formoteroL (SYMBICORT) 160-4.5 mcg/actuati on inhaler 2 Puff 2021-08 01:00: 00 Yes 2{puff} 2 Puff, Inhalation , BID, First dose on 06/05/22 at 1999, Until Discontinu ed, Routine [facility] Fluticasone -Salmeterol (ADVAIR) 500-50 mcg/dose inhalation disk 1 Puff 2021-08 01:00: 00 Yes 1{puff} 1 Puff, Inhalation , Q12H, First dose on 06/05/22 at 2000, Until Discontinu ed, Routine [facility] HYDROcodone -acetaminop hen (NORCO) 10-325 mg tablet 1 tablet 2021-08 00:45: 48 Yes 1{tbl} 1 tablet, Oral, Q4HPRN, Starting on 06/05/22 at 1945, Until Discontinu ed, Routine, Pain (scale 7-10) [facility] traMADoL (ULTRAM) tablet 50 mg 2021-08 00:44: 54 Yes 50mg 50 mg, Oral, Q6HPRN, Starting on 06/05/22 at 1944, Until Discontinu ed, Routine, Pain (scale 4-6) [facility] butalbital- acetaminoph en-caff 50-325-40 mg tablet 2021-08 00:00: 00 09-02 00:00 :00 No [id number] 1{tbl} Take 1 tablet by mouth every 4 (four) hours as needed (Headaches ). [facility] traMADoL 50 mg tablet 2021-08 00:00: 00 06-14 05:59 :00 No [id number] 50mg Take 1 tablet by mouth every 6 (six) hours as needed for Pain (scale 4-6) for up to 7 days. Indication s: acute pain [facility] tiZANidine (ZANAFLEX) tablet 4 mg 2021-08 19:00: 00 Yes 4mg 4 mg, Oral, TID, First dose on Mon06/05/22 at 1400, Until Discontinu ed [facility] enoxaparin (LOVENOX) injection 40 mg 2021-08 16:00: 00 Yes 40mg 40 mg, Subcutaneo us, Q24H, First dose on Mon06/05/22 at 1100, Until Discontinu ed, Routine [facility] HYDROcodone -acetaminop hen (NORCO 5) 5-325 mg tablet 1 tablet 2021-08 14:46: 10 06-06 00:46 :01 No 1{tbl} 1 tablet, Oral, Q4HPRN, Starting on 06/05/22 at 0946, Until Sun /30/22 at 1946, Routine, Pain (scale 7-10) [facility] butalbital- acetaminoph en-caff (ESGIC) 50-325-40 mg tablet 1 tablet 2021-08 14:44: 37 Yes 1{tbl} 1 tablet, Oral, Q4HPRN, Starting on Mon06/05/22 at 0944, Until Discontinu ed, Routine, Headaches [facility] acetaminoph en (TYLENOL) tablet 650 mg 2021-08 14:43: 07 Yes 650mg 650 mg, Oral, Q6HPRN, Starting on Mon06/05/22 at 0943, Until Discontinu ed, Routine, Pain (scale 1-3) [facility] bisacodyL (DULCOLAX) suppository 10 mg 2021-08 14:42: 04 Yes 10mg 10 mg, Rectal, QHSPRN, Starting on [place] 06/05/22 at 0942, Until Discontinu ed, Routine, Constipati on [facility] NaCl 0.9% (NS) injection 5 mL 2021-08 14:42: 04 Yes 5mL 5 mL, Slow IV Push, PRN - SEE INSTRUCTIO NS, Starting on Mon06/05/22 at 0942, Until Discontinu ed, 10 mL [facility] NaCl 0.9% (NS) bolus infusion 500 mL 2021-08 14:15: 00 06-05 14:51 :00 No 500mL at 999 mL/hr, 500 mL, IV Infusion, ONCE, 1 dose, On [place] 06/05/22 at 0915, TALIA [facility] magnesium sulfate in water 2 gram/50 mL (4 %) infusion 2 g 2021-08 14:15: 00 06-05 14:51 :00 No 2g 2 g, IV Piggyback, Administer over 60 Minutes, ONCE, 1 dose, On Mon06/05/22 at 0915, TALIA [facility] diphenhydrA MINE (BENADRYL) injection 25 mg 2021-08 13:18: 00 06-05 13:39 :00 No 25mg 25 mg, Slow IV Push, ONCE, 1 dose, On 06/05/22 at 0830, STAT [facility] metoclopram edgar HCl (REGLAN) injection 10 mg 2021-08 13:17: 00 06-05 13:39 :00 No 10mg 10 mg, Slow IV Push, ONCE, 1 dose, On 06/05/22 at 0830, TALIA [facility] budesonide- formoteroL 160-4.5 mcg/actuati on inhaler 2021-08 10:55: 58 Yes 2{puff} Inhale 2 Puffs. [facility] FLUTICASONE PROPIONATE NASAL 2021-08 10:55: 58 Yes 50ug Use 50 mcg in each nostril once daily as needed for Other (allergies ). [facility] ALBUTEROL INHALE 2021-08 10:55: 58 Yes 8.5mg Inhale 8.5 mg every 4 (four) hours as needed (wheezing) . [facility] omeprazole 40 mg capsule 2021-08 10:55: 58 Yes 40mg Take 40 mg by mouth at bedtime. [facility] enoxaparin (LOVENOX) injection 40 mg 2021-08 15:30: 00 Yes 40mg 40 mg, Subcutaneo us, Q24H, First dose on 06/04/22 at 1030, Until Discontinu ed, Routine [facility] budesonide- formoteroL 160-4.5 mcg/actuati on inhaler 2021-08 13:20: 37 Yes 2{puff} Inhale 2 Puffs. [facility] FLUTICASONE PROPIONATE NASAL 2021-08 13:20: 37 Yes 50ug Use 50 mcg in each nostril once daily as needed for Other (allergies ). [facility] ALBUTEROL INHALE 2021-08 13:20: 37 Yes 8.5mg Inhale 8.5 mg every 4 (four) hours as needed (wheezing) . [facility] omeprazole 40 mg capsule 2021-08 13:20: 37 Yes 40mg Take 40 mg by mouth at bedtime. [facility] pantoprazol e 40 mg EC tablet 2021-08 00:00: 00 09-02 00:00 :00 No [id number] 40mg Take 1 tablet by mouth at bedtime. [facility] HYDROcodone -acetaminop hen 5-325 mg tablet 2021-08 00:00: 00 06-12 04:59 :00 No [id number] 1{tbl} Take 1 tablet by mouth every 6 (six) hours as needed for Pain (scale 4-6) for up to 7 days. Indication s: acute pain [facility] ceFAZolin (ANCEF) injection 1,000 mg 2021-08 22:45: 00 06-04 13:41 :00 No 1000mg 1,000 mg, Intravenou s, Q8H ABX, 3 doses, First dose on Mon06/03/22 at 1745, Last dose on Mon06/04/22 at 0945
Re ason for Anti-Infec tive: Surgical Prophylaxi s
Surgi benjie Prophylaxi s: Neurosurge ry
Dura tion of therapy: within 24 hours of surgery [facility] morpHINE (4 mg/mL) injection 4 mg 2021-08 19:52: 00 Yes 4mg 4 mg, Slow IV Push, Q4HPRN, Starting on Mon06/03/22 at 1452, Until Discontinu ed, Routine, Pain (scale 7-10) [facility] ipratropium -albuteroL (DUONEB) 0.5 mg-3 mg(2.5 mg base)/3 mL nebulizer solution 3 mL 2021-08 18:45: 00 06-03 17:57 :00 No 3mL 3 mL, Inhalation , ONCE, 1 dose, On Mon06/03/22 at 1345, Routine [facility] HYDROcodone -acetaminop hen (NORCO 5) 5-325 mg tablet 1 tablet 2021-08 16:45: 00 06-03 17:30 :00 No 1{tbl} 1 tablet, Oral, ONCE, 1 dose, On Mon06/03/22 at 1145, Routine, PACU [facility] HYDROmorpho ne (DILAUDID) injection 0.2 mg 2021-08 16:31: 55 06-03 19:34 :12 No .2mg 0.2 mg, Slow IV Push, Q5MIN PRN, 10 doses, Starting on Mon06/03/22 at 1131, Until Mon06/03/22 at 1434, Routine, Pain (scale 7-10), PACU
Us e approved by (Faculty): PACU USE -ANESTHESI A SERVICE-HY DROMORPHON E INJECTIONS [facility] vancomycin (VANCOCIN) 1 g in sodium chloride 0.9 % irrigation 2021-08 15:27: 00 06-03 16:02 :41 No PRN, Starting on Mon06/03/22 at 1027, Until Mon06/03/22 at 1102, 1,000 mL, Intra-op [facility] thrombin topical solution 2021-08 15:14: 00 06-03 16:02 :41 No PRN, Starting on Mon06/03/22 at 1014, Until Mon06/03/22 at 1102, Routine, Intra-op [facility] lidocaine-e pinephrine (XYLOCAINE WITH EPINEPHRINE ) 0.5 %-1:200,000 injection 2021-08 14:35: 00 06-03 16:02 :41 No PRN, Starting on Mon06/03/22 at 0935, Until Mon06/03/22 at 1102, Routine, Intra-op [facility] morpHINE (2 mg/mL) injection 2 mg 2021-08 14:15: 00 06-03 13:57 :00 No 2mg 2 mg, Slow IV Push, ONCE, 1 dose, On Mon06/03/22 at 0915, Routine [facility] docusate (COLACE) capsule 100 mg 2021-08 14:00: 00 Yes 100mg 100 mg, Oral, DAILY, First dose on Mon06/03/22 at 0900, Until Discontinu ed, Routine [facility] levothyroxi ne (SYNTHROID) tablet 137 mcg 2021-08 03:30: 00 Yes 137ug 137 mcg, Oral, Q24H, First dose on Mon06/02/22 at 2230, Until Discontinu ed, Routine [facility] pantoprazol e (PROTONIX) EC tablet 40 mg 2021-08 02:30: 00 Yes 40mg 40 mg, Oral, QHS, First dose on Mon06/02/22 at 2130, Until Discontinu ed, Routine [facility] FLUoxetine (PROZAC) capsule 20 mg 2021-08 02:00: 00 Yes 20mg 20 mg, Oral, QHS, First dose on Mon06/02/22 at 2100, Until Discontinu ed [facility] amitriptyli ne (ELAVIL) tablet 25 mg 2021-08 02:00: 00 Yes 25mg 25 mg, Oral, QHS, First dose on Mon06/02/22 at 2100, Until Discontinu ed, Routine [facility] Fluticasone -Salmeterol (ADVAIR) 500-50 mcg/dose inhalation disk 1 Puff 2021-08 01:00: 00 Yes 1{puff} 1 Puff, Inhalation , Q12H, First dose on Mon06/02/22 at 2000, Until Discontinu ed, Routine [facility] enoxaparin (LOVENOX) injection 40 mg 2021-08 22:00: 00 06-03 13:22 :55 No 40mg 40 mg, Subcutaneo us, Q24H, First dose on Mon06/02/22 at 1700, Until Discontinu ed, Routine [facility] gadoteridol (PROHANCE-2 0 mL) injection 19.86 mL 2021-08 21:45: 00 06-02 21:45 :00 No [id number] .2mL/kg 19.86 mL (0.2 mL/kg ?99.3 kg), Intravenou s, ONCE, 1 dose, On [place] 06/02/22 at 1645, Routine [facility] ondansetron (ZOFRAN (PF)) injection 4 mg 2021-08 19:02: 30 Yes 4mg 4 mg, Slow IV Push, Q6HPRN, Starting on [place] 06/02/22 at 1402, Until Discontinu ed, Routine, Nausea and Vomiting (N/V) [facility] HYDROcodone -acetaminop hen (NORCO 5) 5-325 mg tablet 1 tablet 2021-08 19:02: 26 06-04 19:01 :26 No 1{tbl} 1 tablet, Oral, Q6HPRN, Starting on [place] 06/02/22 at 1402, Until 06/04/22 at 1401, Routine, Pain (scale 4-6) [facility] acetaminoph en (TYLENOL) tablet 650 mg 2021-08 19:02: 24 Yes 650mg 650 mg, Oral, Q6HPRN, Starting on [place] 06/02/22 at 1402, Until Discontinu ed, Routine, Pain (scale 1-3) [facility] ketorolac (TORADOL) injection 30 mg 2021-08 16:45: 00 06-02 16:32 :00 No 30mg 30 mg, Slow IV Push, ONCE, 1 dose, On [place] 06/02/22 at 1145, Routine [facility] morpHINE (2 mg/mL) injection 6 mg 2021-08 16:00: 00 06-02 16:32 :00 No 6mg 6 mg, Slow IV Push, ONCE, 1 dose, On [place] 06/02/22 at 1100, STAT [facility] budesonide- formoteroL 160-4.5 mcg/actuati on inhaler 2021-08 11:25: 05 Yes 2{puff} Inhale 2 Puffs. [facility] ALBUTEROL INHALE 2021-08 11:25: 05 Yes 8.5mg Inhale 8.5 mg every 4 (four) hours as needed (wheezing) . [facility] nystatin 100,000 unit/mL suspension 2021-08 00:00: 00 05-26 04:59 :00 No [id number] U Take 10 mL by mouth 4 (four) times daily for 7 days. [facility] fluconazole (DIFLUCAN) 150 mg tablet 2021-08 00:00: 00 05-19 04:59 :00 No [id number] 150mg Take 1 tablet by mouth once now for 1 dose. [facility] FLUTICASONE PROPIONATE NASAL 2021-08 16:32: 20 Yes 50ug Use 50 mcg in each nostril once daily as needed for Other (allergies ). [facility] budesonide- formoteroL 160-4.5 mcg/actuati on inhaler 2021-08 16:32: 20 Yes 2{puff} Inhale 2 Puffs. [facility] ALBUTEROL INHALE 2021-08 16:32: 20 Yes 8.5mg Inhale 8.5 mg every 4 (four) hours as needed (wheezing) . [facility] acetaminoph en-codeine 300-30 mg tablet 2021-08 10:46: 19 05-15 00:00 :00 No 1{tbl} Take 1 tablet by mouth every 6 (six) hours as needed. [facility] tiZANidine (ZANAFLEX) tablet 4 mg 2021-08 03:00: 00 Yes 4mg 4 mg, Oral, Q8H, First dose on 05/14/22 at 2200, Until Discontinu ed, Routine [facility] amitriptyli ne (ELAVIL) tablet 25 mg 2021-08 02:00: 00 Yes 25mg 25 mg, Oral, QHS, First dose on 05/14/22 at 2100, Until Discontinu ed, Routine [facility] amitriptyli ne 25 mg tablet 2021-08 00:00: 00 08-14 05:59 :00 No [id number] 25mg Take 1 tablet by mouth at bedtime for 90 days. [facility] pregabalin 150 mg capsule 2021-08 00:00: 00 08-14 05:59 :00 No [id number] 150mg Take 1 capsule by mouth in the morning and 1 capsule at noon and 1 capsule in the evening. Do all this for 90 days. [facility] docusate (COLACE) 100 mg capsule 2021-08 00:00: 07-12 00:00 :00 No [id number] 100mg Take 1 capsule by mouth in the morning for 90 days. [facility] tiZANidine 4 mg capsule 2021-08 00:00: 07-12 00:00 :00 No [id number] 4mg Take 1 capsule by mouth in the morning and 1 capsule at noon and 1 capsule in the evening. Do all this for 90 days. [facility] magnesium hydroxide 400 mg/5 mL suspension 2021-08:00: 06-15 05:59 :00 No [id number] 30mL Take 30 mL by mouth 2 (two) times daily as needed for Constipati on for up to 30 days. [facility] acetaminoph en 500 mg tablet 2021-08 00:00: 00 05-23 04:59 :00 No [id number] 1000mg Take 2 tablets by mouth every 6 (six) hours for 7 days. [facility] morphine IR 15 mg tablet 2021-08:00: 05-23 04:59 :00 No [id number] 15mg Take 1 tablet by mouth every 4 (four) hours as needed for Pain (scale 4-6) for up to 7 days. Indication s: acute pain [facility] dexAMETHaso ne 1 mg tablet 2021-08 00:00: 00 05-23 04:59 :00 No [id number] Take 4 tablets by mouth every 6 (six) hours for 1 day, THEN 4 tablets every 12 (twelve) hours for 2 days, THEN 2 tablets every 12 (twelve) hours for 2 days, THEN 1 tablet every 12 (twelve) hours for 2 days. [facility] omeprazole 40 mg capsule 2021-08 0-09 00:00: 00 05-23 04:59 :00 No [id number] 40mg Take 1 capsule by mouth in the morning for 7 days. [facility] morpHINE (4 mg/mL) injection 2 mg 2021-08 008 19:28: 59 Yes 2mg 2 mg, Slow IV Push, Q6HPRN, Starting on Mon05/14/22 at 1428, Until Discontinu ed, Routine, Pain (scale 7-10) [facility] acetaminoph en (TYLENOL) tablet 1,000 mg 2021-08 0 23:00: 00 Yes 1000mg 1,000 mg, Oral, Q6H, First dose on Mon05/13/22 at 1800, Until Discontinu ed, Routine [facility] pregabalin (LYRICA) capsule 150 mg 2021-08 19:00: 00 Yes 150mg 150 mg, Oral, Q8H, First dose (after last modificati on) on Mon05/13/22 at 1400, Until Discontinu ed, Routine [facility] morphine IR (MSIR) tablet 15 mg 2021-08 18:24: 25 Yes 15mg 15 mg, Oral, Q4HPRN, Starting on Mon05/13/22 at 1324, Until Discontinu ed, Routine, Pain (scale 4-6) [facility] lidocaine 1% (PF) (XYLOCAINE) injection 10 mL 2021-08 16:15: 00 05-13 16:15 :00 No 10mL 10 mL, Infiltrati on, ONCE, 1 dose, On Mon05/13/22 at 1115, Routine [facility] pantoprazol e (PROTONIX) injection 40 mg 2021-08 0 13:00: 00 Yes 40mg 40 mg, Slow IV Push, Q12H, First dose on Mon05/13/22 at 0800, Until Discontinu ed [facility] dexamethaso ne (DECADRON PHOSPHATE) injection 4 mg 2021-08 007 12:30: 00 05-16 10:59 :00 No 4mg 4 mg, Intravenou s, Q6H, 12 doses, First dose on Mon05/13/22 at 0730, Last dose on Mon05/16/22 at 0000, 1 mL [facility] docusate (COLACE) capsule 100 mg 2021-08 0-07 01:00: 00 Yes 100mg 100 mg, Oral, BID, First dose on Mon05/12/22 at 2000, Until Discontinu ed, Routine [facility] magnesium hydroxide (MILK OF MAGNESIA) 400 mg/5 mL suspension 30 mL 2021-08 0 14:45: 00 05-12 14:17 :00 No 30mL 30 mL, Oral, ONCE, 1 dose, On Mon05/12/22 at 0945, Routine [facility] magnesium hydroxide (MILK OF MAGNESIA) 400 mg/5 mL suspension 30 mL 2021-08 0 13:52: 17 Yes 30mL 30 mL, Oral, BIDPRN, Starting on Mon05/12/22 at 0852, Until Discontinu ed, Routine, Constipati on [facility] levothyroxi ne (SYNTHROID) tablet 137 mcg 2021-08 006 11:00: 00 Yes 137ug 137 mcg, Oral, QAM-0600, First dose on Mon05/12/22 at 0600, Until Discontinu ed, Routine [facility] enoxaparin (LOVENOX) injection 40 mg 2021-08 0-06 09:00: 00 Yes 40mg 40 mg, Subcutaneo us, Q24H, First dose on Mon05/12/22 at 0400, Until Discontinu ed, Routine [facility] omeprazole (PRILOSEC) capsule 40 mg 2021-08 0-06 02:30: 00 Yes 40mg 40 mg, Oral, QHS, First dose (after last modificati on) on Mon05/11/22 at 2130, Until Discontinu ed [facility] FLUoxetine (PROZAC) capsule 10 mg 2021-08 0-06 02:30: 00 Yes 10mg 10 mg, Oral, QHS, First dose (after last modificati on) on Mon05/11/22 at 2130, Until Discontinu ed [facility] ceFAZolin in 0.9% sodium chloride (ANCEF) 2 gram/100 mL RTU 2 g 2021-08 0-06 02:00: 00 05-14 19:02 :00 No 2000mg 2 g (2,000 mg), IV Piggyback, Q8H ABX, 9 doses, First dose on Mon05/11/22 at 2100, Last dose on Mon05/14/22 at 1300, Administer over 30 Minutes, 100 mL
Reas on for Anti-Infec tive: Surgical Prophylaxi s
Surgi benjie Prophylaxi s: Neurosurge ry
Dura tion of therapy: within 24 hours of surgery [facility] sennosides (SENOKOT) tablet 8.6 mg 2021-08 0-06 01:00: 00 Yes 8.6mg 8.6 mg, Oral, BID, First dose on Mon05/11/22 at 1999, Until Discontinu ed, Routine [facility] Fluticasone -Salmeterol (ADVAIR) 500-50 mcg/dose inhalation disk 1 Puff 2021-08 0-06 01:00: 00 Yes 1{puff} 1 Puff, Inhalation , Q12H, First dose on Mon05/11/22 at 1999, Until Discontinu ed, Routine [facility] pregabalin (LYRICA) capsule 150 mg 2021-08 0-06 01:00: 00 05-13 18:25 :39 No 150mg 150 mg, Oral, BID, First dose on Mon05/11/22 at 1999, Until Discontinu ed, Routine [facility] docusate (COLACE) capsule 100 mg 2021-08 0-06 01:00: 00 05-12 14:02 :23 No 100mg 100 mg, Oral, BID, First dose on Mon05/11/22 at 1999, Until Discontinu ed, Routine [facility] acetaminoph en ADULT (OFIRMEV) injection 1,000 mg 2021-08 0-05 23:00: 00 05-12 17:20 :00 No 1000mg 1,000 mg, IV Infusion, at 400 mL/hr Administer over 15 Minutes, Q6H, 4 doses, First dose on Mon05/11/22 at 1800, Last dose on Mon05/12/22 at 1200, Routine
Indicatio n: Perioperat mayte Patient [facility] cyclobenzap rine (FLEXERIL) tablet 10 mg 2021-08 0 21:30: 00 Yes 10mg 10 mg, Oral, TID, First dose (after last modificati on) on Mon05/11/22 at 1630, Until Discontinu ed, Routine [facility] lactated ringers IV infusion 1,000 mL 2021-08 19:15: 00 Yes 1000mL at 75 mL/hr, 1,000 mL, IV Infusion, CONTINUOUS , Starting on Mon05/11/22 at 1415, Until Discontinu ed, Routine, PACU [facility] HYDROcodone -acetaminop hen (NORCO 5) 5-325 mg tablet 1 tablet 2021-08 19:15: 00 05-11 20:15 :00 No 1{tbl} 1 tablet, Oral, ONCE, 1 dose, On Mon05/11/22 at 1415, Routine, PACU [facility] FENTanyl PF (SUBLIMAZE (PF)) injection 25 mcg 2021-08 19:10: 34 05-11 20:58 :07 No 25ug 25 mcg, Slow IV Push, Q5MIN PRN, 4 doses, Starting on Mon05/11/22 at 1410, Until Mon05/11/22 at 1558, Routine, Pain (scale 4-6), PACU [facility] NaCl 0.9% (NS) IV infusion 1,000 mL 2021-08 19:00: 00 Yes 1000mL at 42 mL/hr, IV Infusion, CONTINUOUS , Starting on Mon05/11/22 at 1400, Until Discontinu ed, Routine [facility] oxyCODONE immediate release tablet 5 mg 2021-08 18:54: 40 Yes 5mg 5 mg, Oral, Q4HPRN, Starting on Mon05/11/22 at 1354, Until Discontinu ed, Routine, Pain (scale 7-10)
F aculty member approving Restricted medication : ROSELYN DOSS [facility] naloxone (NARCAN) injection 0.1 mg 2021-08 18:53: 10 Yes .1mg 0.1 mg, Slow IV Push, SEE-INSTRU CTIONS, Starting on Mon05/11/22 at 1353, Until Discontinu ed, Routine [facility] bisacodyL (DULCOLAX) suppository 10 mg 2021-08 18:53: 10 Yes 10mg 10 mg, Rectal, QHSPRN, Starting on Mon05/11/22 at 1353, Until Discontinu ed, Routine, Constipati on [facility] NaCl 0.9% (NS) injection 5 mL 2021-08 18:53: 10 Yes 5mL 5 mL, Slow IV Push, PRN - SEE INSTRUCTIO NS, Starting on Mon05/11/22 at 1353, Until Discontinu ed, 10 mL [facility] vancomycin (VANCOCIN) 2 g in sodium chloride 0.9 % irrigation 2021-08 0 18:20: 00 05-11 19:40 :07 No PRN, Starting on Mon05/11/22 at 1320, Until Mon05/11/22 at 1440, 1,000 mL, Intra-op [facility] sodium chloride 0.9 % irrigation solution 2021-08 18:19: 00 05-11 19:40 :07 No PRN, Starting on Mon05/11/22 at 1319, Until Mon05/11/22 at 1440, Intra-op [facility] methylPREDN ISolone acetate (DEPO-MEDRO L) injection 2021-08 18:19: 00 05-11 19:40 :07 No PRN, Starting on Mon05/11/22 at 1319, Until Mon05/11/22 at 1440, Routine, Intra-op [facility] bupivacaine liposome (PF) (EXPAREL (PF)) 1.3 % (13.3 mg/mL) injection 2021-08 0 18:18: 00 05-11 19:40 :07 No PRN, Starting on Mon05/11/22 at 1318, Until Mon05/11/22 at 1440, Routine, Intra-op [facility] bupivacaine (preserv free) 0.5% (SENSORCAIN E MPF) 0.5 % (5 mg/mL) injection 2021-08 0-05 18:18: 00 05-11 19:40 :07 No PRN, Starting on Mon05/11/22 at 1318, Until Mon05/11/22 at 1440, Routine, Intra-op [facility] lidocaine-e pinephrine (XYLOCAINE WITH EPINEPHRINE ) 0.5 %-1:200,000 injection 2021-08 0-05 14:59: 00 05-11 19:40 :07 No PRN, Starting on Mon05/11/22 at 0959, Until Mon05/11/22 at 1440, Routine, Intra-op [facility] thrombin topical solution 2021-08 0-05 14:59: 00 05-11 19:40 :07 No PRN, Starting on Mon05/11/22 at 0959, Until Mon05/11/22 at 1440, Routine, Intra-op [facility] pregabalin 75 mg capsule 2021-08 0-05 13:53: 49 05-11 00:00 :00 No 75mg Take 75 mg by mouth 2 (two) times daily. [facility] budesonide- formoteroL 160-4.5 mcg/actuati on inhaler 2021-08 0-05 13:53: 48 Yes 2{puff} Inhale 2 Puffs. [facility] budesonide- formoteroL 160-4.5 mcg/actuati on inhaler 2021-08 0-05 07:00: 56 Yes 2{puff} Inhale 2 Puffs. [facility] pregabalin 75 mg capsule 2021-08 0-05 07:00: 56 Yes 75mg Take 75 mg by mouth 2 (two) times daily. [facility] FLUTICASONE PROPIONATE NASAL 2021-08 0-05 07:00: 56 Yes 50ug Use 50 mcg in each nostril once daily as needed for Other (allergies ). [facility] ALBUTEROL INHALE 2021-08 0 07:00: 56 Yes 8.5mg Inhale 8.5 mg every 4 (four) hours as needed (wheezing) . [facility] acetaminoph en-codeine 300-30 mg tablet 2021-08 0 07:00: 56 Yes 1{tbl} Take 1 tablet by mouth every 6 (six) hours as needed. [facility] tretinoin 0.025 % cream 2021-08 00:00: 00 Yes [id number] Apply to affected area(s) at bedtime. [facility] pregabalin 75 mg capsule 05-06 15:16: 08 Yes 75mg Take 75 mg by mouth 2 (two) times daily. [facility] FLUTICASONE PROPIONATE NASAL 05-06 15:16: 08 Yes 50ug Use 50 mcg in each nostril once daily as needed for Other (allergies ). [facility] ALBUTEROL INHALE 05-06 15:16: 08 Yes 8.5mg Inhale 8.5 mg every 4 (four) hours as needed (wheezing) . [facility] acetaminoph en-codeine 300-30 mg tablet 05-06 15:16: 08 Yes 1{tbl} Take 1 tablet by mouth every 6 (six) hours as needed. [facility] pregabalin (LYRICA) 150 mg capsule 04-25 00:00: 00 05-15 00:00 :00 No [id number] 150mg Take 1 capsule by mouth in the morning and 1 capsule in the evening. Do all this for 90 days. [facility] bromphenira mine-pseudo ephedrine-D M 2-30-10 mg/5 mL syrup 04-09 00:00: 00 04-17 04:59 :00 No [id number] 10mL Take 10 mL by mouth 4 (four) times daily as needed for Congestion /Allergies for up to 7 days. [facility] hydrocortis one 2.5 % cream 02-17 00:00: 00 Yes [id number] Apply to affected area(s) 2 (two) times daily. Safe for the face. [facility] ketoconazol e 2 % cream 02-17 00:00: 00 03-28 00:00 :00 No [id number] Apply to area(s) 2 (two) times daily. [facility] acetaminoph en-codeine 300-30 mg tablet 01-18 10:16: 20 Yes 1{tbl} Take 1 tablet by mouth every 6 (six) hours as needed. [facility] pregabalin 75 mg capsule 01-18 10:14: 32 Yes 75mg Take 75 mg by mouth 2 (two) times daily. [facility] FLUTICASONE PROPIONATE NASAL 01-18 10:14: 32 Yes 50ug Use 50 mcg in each nostril once daily as needed for Other (allergies ). [facility] ALBUTEROL INHALE 01-18 10:14: 32 Yes 8.5mg Inhale 8.5 mg every 4 (four) hours as needed (wheezing) . [facility] budesonide- formoteroL 160-4.5 mcg/actuati on inhaler 01-18 09:49: 26 Yes 2{puff} Inhale 2 Puffs. [facility] ADVAIR DISKUS 500-50 mcg/dose inhalation disk 01-13 00:00: 00 Yes 1{puff} Take 1 Puff in the morning and 1 Puff in the evening. Am and HS [facility] rizatriptan 10 mg disintegrat ing tablet 01-06 00:00: 00 09-02 00:00 :00 No DISSOLVE 1 TABLET IN MOUTH ONCE DAILY NEEDED FOR MIGRAINES [facility] omeprazole 40 mg capsule 01-05 00:00: 00 05-15 00:00 :00 No 40mg Take 40 mg by mouth daily. [facility] EUTHYROX 137 mcg tablet 2022-0 5-31 00:00: 11-18 00:00 :00 No 137ug Take 1 tablet by mouth at bedtime. Takes at night per patient [facility] cyclobenzap rine 10 mg tablet 4-21 00:00: 00 05-15 00:00 :00 No 10mg 10 mg 3 (three) times daily as needed. [facility] ZOLMitripta n 5 mg nasal solution 4-08 00:00: 00 03-28 00:00 :00 No 1 tab(s) [facility] bromphenira mine-pseudo ephedrine-D M 230-10 mg/5 mL syrup 1-25 00:00: 00 11-16 00:00 :00 No 10 mL [facility] divalproex (DEPAKOTE) 250 mg EC tablet 2020-08- 00:00: 00 09-21 00:00 :00 No 250mg Take 250 mg by mouth in the morning and 250 mg in the evening. [facility] traMADoL 50 mg tablet 8-20 00:00: 00 05-15 00:00 :00 No [id number] 50mg 50 mg every 6 (six) hours as needed. Indication s: acute pain [facility] FLUoxetine 20 mg tablet 7-21 00:00: 00 12-15 00:00 :00 No 10mg Take 0.5 tablets by mouth in the morning. Takes at night per patient [facility] Levothyroxi ne Sodium 125 MCG Oral Tablet [...] RINSE MOUTH AFTER USE. [facility] Immunizations Ordered Immunization Name Filled Immunization Name Date Status Comments Source TDAP 2017-01-24 00:00:00 Completed [facility] TDAP 2017-01-24 00:00:00 Completed [facility] TDAP 2017-01-24 00:00:00 Completed [facility] TDAP 2017-01-24 00:00:00 Completed [facility] TDAP 2017-01-24 00:00:00 Completed [facility] TDAP 2017-01-24 00:00:00 Completed [facility] TDAP 2017-01-24 00:00:00 Completed [facility] TDAP 2017-01-24 00:00:00 Completed [facility] TDAP 2017-01-24 00:00:00 Completed [facility] TDAP 2017-01-24 00:00:00 Completed [facility] TDAP 2017-01-24 00:00:00 Completed [facility] TDAP 2017-01-24 00:00:00 Completed [facility] TDAP 2017-01-24 00:00:00 Completed [facility] TDAP 2017-01-24 00:00:00 Completed [facility] TDAP 2017-01-24 00:00:00 Completed [facility] TDAP 2017-01-24 00:00:00 Completed [facility] TDAP 2017-01-24 00:00:00 Completed [facility] TDAP 2017-01-24 00:00:00 Completed [facility] TDAP 2017-01-24 00:00:00 Completed [facility] TDAP 2017-01-24 00:00:00 Completed [facility] TDAP 2017-01-24 00:00:00 Completed [facility] TDAP 2017-01-24 00:00:00 Completed [facility] TDAP 2017-01-24 00:00:00 Completed [facility] TDAP 2017-01-24 00:00:00 Completed [facility] TDAP 2017-01-24 00:00:00 Completed [facility] TDAP 2017-01-24 00:00:00 Completed [facility] TDAP 2017-01-24 00:00:00 Completed [facility] TDAP 2017-01-24 00:00:00 Completed [facility] TDAP 2017-01-24 00:00:00 Completed [facility] TDAP 2017-01-24 00:00:00 Completed [facility] TDAP 2017-01-24 00:00:00 Completed [facility] TDAP 2017-01-24 00:00:00 Completed [facility] TDAP 2017-01-24 00:00:00 Completed [facility] TDAP 2017-01-24 00:00:00 Completed [facility] TDAP 2017-01-24 00:00:00 Completed [facility] TDAP 2017-01-24 00:00:00 Completed [facility] TDAP 2017-01-24 00:00:00 Completed [facility] TDAP 2017-01-24 00:00:00 Completed [facility] TDAP 2017-01-24 00:00:00 Completed [facility] TDAP 2017-01-24 00:00:00 Completed [facility] TDAP 2017-01-24 00:00:00 Completed [facility] TDAP 2017-01-24 00:00:00 Completed [facility] TDAP 2017-01-24 00:00:00 Completed [facility] TDAP 2017-01-24 00:00:00 Completed [facility] TDAP 2017-01-24 00:00:00 Completed [facility] TDAP 2017-01-24 00:00:00 Completed [facility] TDAP 2017-01-24 00:00:00 Completed [facility] TDAP 2017-01-24 00:00:00 Completed [facility] TDAP 2017-01-24 00:00:00 Completed [facility] TDAP 2017-01-24 00:00:00 Completed [facility] TDAP 2017-01-24 00:00:00 Completed [facility] TDAP 2017-01-24 00:00:00 Completed [facility] TDAP 2017-01-24 00:00:00 Completed [facility] TDAP 2017-01-24 00:00:00 Completed [facility] TDAP 2017-01-24 00:00:00 Completed [facility] TDAP 2017-01-24 00:00:00 Completed [facility] TDAP 2017-01-24 00:00:00 Completed [facility] TDAP 2017-01-24 00:00:00 Completed [facility] TDAP 2017-01-24 00:00:00 Completed [facility] TDAP 2017-01-24 00:00:00 Completed [facility] TDAP 2017-01-24 00:00:00 Completed [facility] TDAP 2017-01-24 00:00:00 Completed [facility] TDAP 2017-01-24 00:00:00 Completed [facility] TDAP 2017-01-24 00:00:00 Completed [facility] TDAP 2017-01-24 00:00:00 Completed [facility] TDAP 2017-01-24 00:00:00 Completed [facility] TDAP 2017-01-24 00:00:00 Completed [facility] TDAP 2017-01-24 00:00:00 Completed [facility] TDAP 2017-01-24 00:00:00 Completed [facility] TDAP 2017-01-24 00:00:00 Completed [facility] TDAP 2017-01-24 00:00:00 Completed [facility] TDAP 2017-01-24 00:00:00 Completed [facility] TDAP 2017-01-24 00:00:00 Completed [facility] TDAP 2017-01-24 00:00:00 Completed [facility] TDAP 2017-01-24 00:00:00 Completed [facility] TDAP 2017-01-24 00:00:00 Completed [facility] TDAP 2017-01-24 00:00:00 Completed [facility] TDAP 2017-01-24 00:00:00 Completed [facility] TDAP 2017-01-24 00:00:00 Completed [facility] TDAP 2017-01-24 00:00:00 Completed [facility] TDAP 2017-01-24 00:00:00 Completed [facility] TDAP 2017-01-24 00:00:00 Completed [facility] TDAP 2010-08-07 00:00:00 Completed [facility] TDAP 2010-08-07 00:00:00 Completed [facility] TDAP 2010-08-07 00:00:00 Completed [facility] TDAP 2010-08-07 00:00:00 Completed [facility] TDAP 2010-08-07 00:00:00 Completed [facility] TDAP 2010-08-07 00:00:00 Completed [facility] TDAP 2010-08-07 00:00:00 Completed [facility] TDAP 2010-08-07 00:00:00 Completed [facility] TDAP 2010-08-07 00:00:00 Completed [facility] TDAP 2010-08-07 00:00:00 Completed [facility] TDAP 2010-08-07 00:00:00 Completed [facility] TDAP 2010-08-07 00:00:00 Completed [facility] TDAP 2010-08-07 00:00:00 Completed [facility] TDAP 2010-08-07 00:00:00 Completed [facility] TDAP 2010-08-07 00:00:00 Completed [facility] TDAP 2010-08-07 00:00:00 Completed [facility] TDAP 2010-08-07 00:00:00 Completed [facility] TDAP 2010-08-07 00:00:00 Completed [facility] TDAP 2010-08-07 00:00:00 Completed [facility] TDAP 2010-08-07 00:00:00 Completed [facility] TDAP 2010-08-07 00:00:00 Completed [facility] TDAP 2010-08-07 00:00:00 Completed [facility] TDAP 2010-08-07 00:00:00 Completed [facility] TDAP 2010-08-07 00:00:00 Completed [facility] TDAP 2010-08-07 00:00:00 Completed [facility] TDAP 2010-08-07 00:00:00 Completed [facility] TDAP 2010-08-07 00:00:00 Completed [facility] TDAP 2010-08-07 00:00:00 Completed [facility] TDAP 2010-08-07 00:00:00 Completed [facility] TDAP 2010-08-07 00:00:00 Completed [facility] TDAP 2010-08-07 00:00:00 Completed [facility] TDAP 2010-08-07 00:00:00 Completed [facility] TDAP 2010-08-07 00:00:00 Completed [facility] TDAP 2010-08-07 00:00:00 Completed [facility] TDAP 2010-08-07 00:00:00 Completed [facility] TDAP 2010-08-07 00:00:00 Completed [facility] TDAP 2010-08-07 00:00:00 Completed [facility] TDAP 2010-08-07 00:00:00 Completed [facility] TDAP 2010-08-07 00:00:00 Completed [facility] TDAP 2010-08-07 00:00:00 Completed [facility] TDAP 2010-08-07 00:00:00 Completed [facility] TDAP 2010-08-07 00:00:00 Completed [facility] TDAP 2010-08-07 00:00:00 Completed [facility] TDAP 2010-08-07 00:00:00 Completed [facility] TDAP 2010-08-07 00:00:00 Completed [facility] TDAP 2010-08-07 00:00:00 Completed [facility] TDAP 2010-08-07 00:00:00 Completed [facility] TDAP 2010-08-07 00:00:00 Completed [facility] TDAP 2010-08-07 00:00:00 Completed [facility] TDAP 2010-08-07 00:00:00 Completed [facility] TDAP 2010-08-07 00:00:00 Completed [facility] TDAP 2010-08-07 00:00:00 Completed [facility] TDAP 2010-08-07 00:00:00 Completed [facility] TDAP 2010-08-07 00:00:00 Completed [facility] TDAP 2010-08-07 00:00:00 Completed [facility] TDAP 2010-08-07 00:00:00 Completed [facility] TDAP 2010-08-07 00:00:00 Completed [facility] TDAP 2010-08-07 00:00:00 Completed [facility] TDAP 2010-08-07 00:00:00 Completed [facility] TDAP 2010-08-07 00:00:00 Completed [facility] TDAP 2010-08-07 00:00:00 Completed [facility] TDAP 2010-08-07 00:00:00 Completed [facility] TDAP 2010-08-07 00:00:00 Completed [facility] TDAP 2010-08-07 00:00:00 Completed [facility] TDAP 2010-08-07 00:00:00 Completed [facility] TDAP 2010-08-07 00:00:00 Completed [facility] TDAP 2010-08-07 00:00:00 Completed [facility] TDAP 2010-08-07 00:00:00 Completed [facility] TDAP 2010-08-07 00:00:00 Completed [facility] TDAP 2010-08-07 00:00:00 Completed [facility] TDAP 2010-08-07 00:00:00 Completed [facility] TDAP 2010-08-07 00:00:00 Completed [facility] TDAP 2010-08-07 00:00:00 Completed [facility] TDAP 2010-08-07 00:00:00 Completed [facility] TDAP 2010-08-07 00:00:00 Completed [facility] TDAP 2010-08-07 00:00:00 Completed [facility] TDAP 2010-08-07 00:00:00 Completed [facility] TDAP 2010-08-07 00:00:00 Completed [facility] TDAP 2010-08-07 00:00:00 Completed [facility] TDAP 2010-08-07 00:00:00 Completed [facility] TDAP 2010-08-07 00:00:00 Completed [facility] TDAP 2010-08-07 00:00:00 Completed [facility] TDAP Unknown Completed [facility] TDAP Unknown Completed [facility] TDAP Unknown Completed [facility] TDAP Unknown Completed [facility] TDAP Unknown Completed [facility] TDAP Unknown Completed [facility] TDAP Unknown Completed [facility] TDAP Unknown Completed [facility] TDAP Unknown Completed [facility] TDAP Unknown Completed [facility] TDAP Unknown Completed [facility] TDAP Unknown Completed [facility] TDAP Unknown Completed [facility] TDAP Unknown Completed [facility] TDAP Unknown Completed [facility] TDAP Unknown Completed [facility] TDAP Unknown Completed [facility] Vital Signs Vital Name Observation Time Observation Value Comments S ource Systolic blood pressure 2024-01-08 17:01:00 121 mm[Hg] [facility] Diastolic blood pressure 2024-01-08 17:01:00 78 mm[Hg] [facility] Heart rate 2024-01-08 17:01:00 98 /min [facility] Respiratory rate 2024-01-08 17:01:00 20 /min [facility] Body height 2024-01-08 17:01:00 165.1 cm [facility] Body weight 2024-01-08 17:01:00 101.56 kg [facility] BMI 2024-01-08 17:01:00 37.26 kg/m2 [facility] Oxygen saturation in Arterial blood by Pulse oximetry 2024-01-08 17:01:00 98 /min [facility] Systolic blood pressure 2023-03-28 15:14:00 153 mm[Hg] [facility] Diastolic blood pressure 2023-03-28 15:14:00 104 mm[Hg] [facility] Heart rate 2023-03-28 15:14:00 107 /min [facility] Body temperature 2023-03-28 15:14:00 36.83 Diane [facility] Respiratory rate 2023-03-28 15:14:00 18 /min [facility] Body height 2023-03-28 15:14:00 166.4 cm [facility] Body weight 2023-03-28 15:14:00 103.556 kg [facility] BMI 2023-03-28 15:14:00 37.41 kg/m2 [facility] Oxygen saturation in Arterial blood by Pulse oximetry 2023-03-28 15:14:00 98 /min [facility] Systolic blood pressure 2023-03-21 02:00:00 165 mm[Hg] [facility] Diastolic blood pressure 2023-03-21 02:00:00 111 mm[Hg] [facility] Heart rate 2023-03-21 02:00:00 84 /min [facility] Respiratory rate 2023-03-21 02:00:00 19 /min [facility] Oxygen saturation in Arterial blood by Pulse oximetry 2023-03-21 02:00:00 98 /min [facility] Body temperature 2023-03-20 23:25:00 36.83 Idane [facility] Body weight 2023-03-20 23:25:00 106.595 kg [facility] BMI 2023-03-20 23:25:00 37.93 kg/m2 [facility] Systolic blood pressure 2023-03-20 22:35:00 151 mm[Hg] [facility] Diastolic blood pressure 2023-03-20 22:35:00 104 mm[Hg] [facility] Heart rate 2023-03-20 22:34:00 117 /min [facility] Body temperature 2023-03-20 22:34:00 36.67 Diane [facility] Respiratory rate 2023-03-20 22:34:00 18 /min [facility] Body height 2023-03-20 22:34:00 167.6 cm [facility] Body weight 2023-03-20 22:34:00 106.232 kg [facility] BMI 2023-03-20 22:34:00 37.80 kg/m2 [facility] Oxygen saturation in Arterial blood by Pulse oximetry 2023-03-20 22:34:00 96 /min [facility] Systolic blood pressure 2023-02-17 18:45:00 149 mm[Hg] [facility] Diastolic blood pressure 2023-02-17 18:45:00 95 mm[Hg] [facility] Heart rate 2023-02-17 18:45:00 85 /min [facility] Oxygen saturation in Arterial blood by Pulse oximetry 2023-02-17 18:45:00 94 /min [facility] Respiratory rate 2023-02-17 18:27:35 18 /min [facility] Body temperature 2023-02-17 16:58:00 36.89 Diane [facility] Body height 2023-02-17 16:58:00 167.6 cm [facility] Body weight 2023-02-17 16:58:00 102.059 kg [facility] BMI 2023-02-17 16:58:00 36.32 kg/m2 [facility] Systolic blood pressure 2022-12-15 13:12:00 138 mm[Hg] [facility] Diastolic blood pressure 2022-12-15 13:12:00 89 mm[Hg] [facility] Heart rate 2022-12-15 13:11:00 89 /min [facility] Body temperature 2022-12-15 13:11:00 36.72 Diane [facility] Respiratory rate 2022-12-15 13:11:00 16 /min [facility] Body height 2022-12-15 13:11:00 167.6 cm [facility] Body weight 2022-12-15 13:11:00 102.286 kg [facility] BMI 2022-12-15 13:11:00 36.40 kg/m2 [facility] Oxygen saturation in Arterial blood by Pulse oximetry 2022-12-15 13:11:00 98 /min [facility] Systolic blood pressure 2022-12-06 15:20:00 145 mm[Hg] Pt in severe pain, no symptoms [facility] Diastolic blood pressure 2022-12-06 15:20:00 88 mm[Hg] Pt in severe pain, no symptoms [facility] Heart rate 2022-12-06 15:20:00 99 /min [facility] Respiratory rate 2022-12-06 15:20:00 12 /min [facility] Body height 2022-12-06 15:20:00 165.1 cm [facility] Body weight 2022-12-06 15:20:00 101.606 kg [facility] BMI 2022-12-06 15:20:00 37.28 kg/m2 [facility] Oxygen saturation in Arterial blood by Pulse oximetry 2022-12-06 15:20:00 99 /min [facility] Systolic blood pressure 2022-11-16 17:01:00 141 mm[Hg] [facility] Diastolic blood pressure 2022-11-16 17:01:00 98 mm[Hg] [facility] Heart rate 2022-11-16 16:57:00 103 /min [facility] Body temperature 2022-11-16 16:57:00 36.72 Diane [facility] Respiratory rate 2022-11-16 16:57:00 17 /min [facility] Body height 2022-11-16 16:57:00 165.1 cm [facility] Body weight 2022-11-16 16:57:00 100.381 kg [facility] BMI 2022-11-16 16:57:00 36.83 kg/m2 [facility] Oxygen saturation in Arterial blood by Pulse oximetry 2022-11-16 16:57:00 97 /min [facility] Systolic blood pressure 2022-11-03 15:04:00 147 mm[Hg] [facility] Diastolic blood pressure 2022-11-03 15:04:00 104 mm[Hg] [facility] Heart rate 2022-11-03 15:03:00 99 /min [facility] Body temperature 2022-11-03 15:03:00 36.39 Diane [facility] Body height 2022-11-03 15:03:00 167.6 cm [facility] Body weight 2022-11-03 15:03:00 99.882 kg [facility] BMI 2022-11-03 15:03:00 35.54 kg/m2 [facility] Oxygen saturation in Arterial blood by Pulse oximetry 2022-11-03 15:03:00 99 /min [facility] Systolic blood pressure 2022-10-18 19:16:00 120 mm[Hg] [facility] Diastolic blood pressure 2022-10-18 19:16:00 77 mm[Hg] [facility] Heart rate 2022-10-18 19:16:00 100 /min [facility] Respiratory rate 2022-10-18 19:16:00 12 /min [facility] Body height 2022-10-18 19:16:00 167.6 cm [facility] Body weight 2022-10-18 19:16:00 100.245 kg [facility] BMI 2022-10-18 19:16:00 35.67 kg/m2 [facility] Oxygen saturation in Arterial blood by Pulse oximetry 2022-10-18 19:16:00 98 /min [facility] Systolic blood pressure 2022-10-15 21:53:00 152 mm[Hg] [facility] Diastolic blood pressure 2022-10-15 21:53:00 87 mm[Hg] [facility] Heart rate 2022-10-15 21:53:00 105 /min [facility] Body temperature 2022-10-15 21:53:00 36.17 Diane [facility] Respiratory rate 2022-10-15 21:53:00 19 /min [facility] Oxygen saturation in Arterial blood by Pulse oximetry 2022-10-15 21:53:00 92 /min [facility] Body height 2022-10-15 01:50:00 167.6 cm [facility] Body weight 2022-10-15 01:50:00 100.245 kg [facility] BMI 2022-10-15 01:50:00 35.67 kg/m2 [facility] Systolic blood pressure 2022-10-14 14:52:00 134 mm[Hg] [facility] Diastolic blood pressure 2022-10-14 14:52:00 88 mm[Hg] [facility] Heart rate 2022-10-14 14:52:00 101 /min [facility] Body height 2022-10-14 14:51:00 167.6 cm [facility] Body weight 2022-10-14 14:51:00 100.562 kg [facility] BMI 2022-10-14 14:51:00 35.78 kg/m2 [facility] Systolic blood pressure 2022-09-21 20:27:00 121 mm[Hg] [facility] Diastolic blood pressure 2022-09-21 20:27:00 82 mm[Hg] [facility] Heart rate 2022-09-21 20:27:00 105 /min [facility] Body height 2022-09-21 20:27:00 167.6 cm [facility] Body weight 2022-09-21 20:27:00 101.152 kg [facility] BMI 2022-09-21 20:27:00 35.99 kg/m2 [facility] Oxygen saturation in Arterial blood by Pulse oximetry 2022-09-21 20:27:00 97 /min [facility] Body height 2022-09-05 16:44:00 167.6 cm [facility] [facility] Body weight 2022-09-05 16:44:00 101.152 kg [facility] BMI 2022-09-05 16:44:00 35.99 kg/m2 [facility] Systolic blood pressure 2022-09-02 19:15:00 113 mm[Hg] [facility] Diastolic blood pressure 2022-09-02 19:15:00 77 mm[Hg] [facility] Heart rate 2022-09-02 19:15:00 101 /min [facility] Body temperature 2022-09-02 19:15:00 36.72 Diane [facility] Body height 2022-09-02 19:15:00 165.1 cm [facility] Body weight 2022-09-02 19:15:00 101.424 kg [facility] BMI 2022-09-02 19:15:00 37.21 kg/m2 [facility] Oxygen saturation in Arterial blood by Pulse oximetry 2022-09-02 19:15:00 96 /min [facility] Body height 2022-08-18 18:06:00 165.1 cm [facility] Body weight 2022-08-18 18:06:00 99.338 kg [facility] BMI 2022-08-18 18:06:00 36.44 kg/m2 [facility] Body height 2022-08-04 15:56:00 167.6 cm [facility] Body weight 2022-08-04 15:56:00 99.791 kg [facility] BMI 2022-08-04 15:56:00 35.51 kg/m2 [facility] Body height 2022-07-25 17:38:00 167.6 cm [facility] Body weight 2022-07-25 17:38:00 99.791 kg [facility] BMI 2022-07-25 17:38:00 35.51 kg/m2 [facility] Systolic blood pressure 2022-07-12 22:02:00 104 mm[Hg] [facility] Diastolic blood pressure 2022-07-12 22:02:00 66 mm[Hg] [facility] Heart rate 2022-07-12 22:02:00 102 /min [facility] Body temperature 2022-07-12 22:02:00 36.89 Diane [facility] Respiratory rate 2022-07-12 22:02:00 20 /min [facility] Oxygen saturation in Arterial blood by Pulse oximetry 2022-07-12 22:02:00 96 /min [facility] Body height 2022-07-11 12:30:00 167.6 cm [facility] Body weight 2022-07-11 12:30:00 100.2 kg [facility] BMI 2022-07-11 12:30:00 35.65 kg/m2 [facility] Systolic blood pressure 2022-07-11 12:30:00 143 mm[Hg] [facility] Diastolic blood pressure 2022-07-11 12:30:00 84 mm[Hg] [facility] Heart rate 2022-07-11 12:30:00 110 /min [facility] Body temperature 2022-07-11 12:30:00 36.56 Diane [facility] Respiratory rate 2022-07-11 12:30:00 21 /min [facility] Body height 2022-07-11 12:30:00 167.6 cm [facility] Body weight 2022-07-11 12:30:00 100.2 kg [facility] BMI 2022-07-11 12:30:00 35.65 kg/m2 [facility] Oxygen saturation in Arterial blood by Pulse oximetry 2022-07-11 12:30:00 97 /min [facility] Body height 2022-07-07 20:33:00 167.6 cm [facility] Body weight 2022-07-07 20:33:00 99.338 kg [facility] BMI 2022-07-07 20:33:00 35.35 kg/m2 [facility] Body height 2022-07-07 19:01:00 167.6 cm [facility] Body weight 2022-07-07 19:01:00 99.338 kg [facility] BMI 2022-07-07 19:01:00 35.35 kg/m2 [facility] Respiratory rate 2022-06-27 18:18:00 18 /min [facility] Body height 2022-06-27 18:18:00 167.6 cm [facility] Body weight 2022-06-27 18:18:00 98.431 kg [facility] BMI 2022-06-27 18:18:00 35.02 kg/m2 [facility] Systolic blood pressure 2022-06-21 19:41:00 126 mm[Hg] [facility] Diastolic blood pressure 2022-06-21 19:41:00 81 mm[Hg] [facility] Heart rate 2022-06-21 19:41:00 101 /min [facility] Body height 2022-06-21 19:41:00 167.6 cm [facility] Body weight 2022-06-21 19:41:00 98.431 kg [facility] BMI 2022-06-21 19:41:00 35.02 kg/m2 [facility] Oxygen saturation in Arterial blood by Pulse oximetry 2022-06-21 19:41:00 98 /min [facility] Systolic blood pressure 2022-06-17 20:04:00 124 mm[Hg] [facility] Diastolic blood pressure 2022-06-17 20:04:00 86 mm[Hg] [facility] Heart rate 2022-06-17 20:04:00 114 /min [facility] Body temperature 2022-06-17 20:04:00 36.67 Diane [facility] Body height 2022-06-17 20:04:00 167.6 cm [facility] Body weight 2022-06-17 20:04:00 98.431 kg [facility] BMI 2022-06-17 20:04:00 35.02 kg/m2 [facility] Systolic blood pressure 2022-06-13 15:30:00 137 mm[Hg] [facility] Diastolic blood pressure 2022-06-13 15:30:00 89 mm[Hg] [facility] Heart rate 2022-06-13 15:30:00 100 /min [facility] Body temperature 2022-06-13 15:23:00 36.39 Diane [facility] Respiratory rate 2022-06-13 15:23:00 18 /min [facility] Body height 2022-06-13 15:23:00 167.6 cm [facility] Body weight 2022-06-13 15:23:00 99.61 kg [facility] BMI 2022-06-13 15:23:00 35.44 kg/m2 [facility] Oxygen saturation in Arterial blood by Pulse oximetry 2022-06-13 15:23:00 98 /min [facility] Systolic blood pressure 2022-06-06 16:27:00 121 mm[Hg] [facility] Diastolic blood pressure 2022-06-06 16:27:00 78 mm[Hg] [facility] Heart rate 2022-06-06 16:27:00 100 /min [facility] Body temperature 2022-06-06 16:27:00 36.94 Diane [facility] Respiratory rate 2022-06-06 16:27:00 18 /min [facility] Oxygen saturation in Arterial blood by Pulse oximetry 2022-06-06 16:27:00 95 /min [facility] Body weight 2022-06-05 12:45:00 99.338 kg [facility] BMI 2022-06-05 12:45:00 35.35 kg/m2 [facility] Systolic blood pressure 2022-06-04 17:55:00 154 mm[Hg] [facility] Diastolic blood pressure 2022-06-04 17:55:00 99 mm[Hg] [facility] Heart rate 2022-06-04 17:55:00 102 /min [facility] Body temperature 2022-06-04 17:55:00 36.78 Diane [facility] Respiratory rate 2022-06-04 17:55:00 20 /min [facility] Oxygen saturation in Arterial blood by Pulse oximetry 2022-06-04 17:55:00 99 /min [facility] Body height 2022-06-02 15:26:00 167.6 cm [facility] Body weight 2022-06-02 15:26:00 99.338 kg [facility] BMI 2022-06-02 15:26:00 35.35 kg/m2 [facility] Systolic blood pressure 2022-06-03 18:45:00 141 mm[Hg] [facility] Diastolic blood pressure 2022-06-03 18:45:00 82 mm[Hg] [facility] Heart rate 2022-06-03 18:45:00 94 /min [facility] Respiratory rate 2022-06-03 18:45:00 15 /min [facility] Body temperature 2022-06-03 18:15:00 36.67 Diane [facility] Oxygen saturation in Arterial blood by Pulse oximetry 2022-06-03 18:00:00 97 /min [facility] Body height 2022-06-02 15:26:00 167.6 cm [facility] Body weight 2022-06-02 15:26:00 99.338 kg [facility] BMI 2022-06-02 15:26:00 35.35 kg/m2 [facility] Systolic blood pressure 2022-05-28 00:41:00 153 mm[Hg] [facility] Diastolic blood pressure 2022-05-28 00:41:00 96 mm[Hg] [facility] Heart rate 2022-05-28 00:41:00 110 /min [facility] Body temperature 2022-05-28 00:41:00 36.67 Diane [facility] Respiratory rate 2022-05-28 00:41:00 22 /min [facility] Body weight 2022-05-28 00:41:00 95.255 kg [facility] BMI 2022-05-28 00:41:00 33.89 kg/m2 [facility] Oxygen saturation in Arterial blood by Pulse oximetry 2022-05-28 00:41:00 99 /min [facility] Systolic blood pressure 2022-05-27 20:16:00 134 mm[Hg] [facility] Diastolic blood pressure 2022-05-27 20:16:00 89 mm[Hg] [facility] Heart rate 2022-05-27 20:16:00 109 /min [facility] Body temperature 2022-05-27 20:16:00 36.72 Diane [facility] Respiratory rate 2022-05-27 20:16:00 20 /min [facility] Body weight 2022-05-27 20:16:00 99.338 kg [facility] BMI 2022-05-27 20:16:00 35.35 kg/m2 [facility] Oxygen saturation in Arterial blood by Pulse oximetry 2022-05-27 20:16:00 98 /min [facility] Systolic blood pressure 2022-05-18 16:22:00 139 mm[Hg] [facility] Diastolic blood pressure 2022-05-18 16:22:00 86 mm[Hg] [facility] Heart rate 2022-05-18 16:22:00 96 /min [facility] Body temperature 2022-05-18 16:22:00 36.5 Diane [facility] Respiratory rate 2022-05-18 16:22:00 17 /min [facility] Body weight 2022-05-18 16:22:00 99.746 kg [facility] BMI 2022-05-18 16:22:00 35.49 kg/m2 [facility] Oxygen saturation in Arterial blood by Pulse oximetry 2022-05-18 16:22:00 97 /min [facility] Systolic blood pressure 2022-05-15 17:21:00 120 mm[Hg] [facility] Diastolic blood pressure 2022-05-15 17:21:00 78 mm[Hg] [facility] Heart rate 2022-05-15 17:21:00 87 /min [facility] Body temperature 2022-05-15 17:21:00 36.67 Diane [facility] Respiratory rate 2022-05-15 17:21:00 17 /min [facility] Oxygen saturation in Arterial blood by Pulse oximetry 2022-05-15 17:21:00 98 /min [facility] Body height 2022-05-11 22:13:00 167.6 cm [facility] Body weight 2022-05-11 22:13:00 97.977 kg [facility] BMI 2022-05-11 22:13:00 34.86 kg/m2 [facility] Systolic blood pressure 2022-05-11 12:41:00 159 mm[Hg] [facility] Diastolic blood pressure 2022-05-11 12:41:00 92 mm[Hg] [facility] Heart rate 2022-05-11 12:41:00 99 /min [facility] Body temperature 2022-05-11 12:41:00 36.56 Diane [facility] Respiratory rate 2022-05-11 12:41:00 20 /min [facility] Body height 2022-05-11 12:41:00 167.6 cm [facility] Body weight 2022-05-11 12:41:00 98.2 kg [facility] BMI 2022-05-11 12:41:00 34.86 kg/m2 [facility] Oxygen saturation in Arterial blood by Pulse oximetry 2022-05-11 12:41:00 97 /min [facility] Body height 2022-05-09 14:54:00 167.6 cm [facility] Body height 2022-05-06 18:05:00 167.6 cm [facility] Body weight 2022-05-06 18:05:00 99.338 kg [facility] BMI 2022-05-06 18:05:00 35.35 kg/m2 [facility] Body height 2022-04-25 17:18:00 167.6 cm [facility] Body weight 2022-04-25 17:18:00 99.338 kg [facility] BMI 2022-04-25 17:18:00 35.35 kg/m2 [facility] Systolic blood pressure 2022-04-15 18:33:00 136 mm[Hg] [facility] Diastolic blood pressure 2022-04-15 18:33:00 91 mm[Hg] [facility] Heart rate 2022-04-15 18:33:00 94 /min [facility] Body temperature 2022-04-15 18:33:00 36.72 Diane [facility] Respiratory rate 2022-04-15 18:33:00 16 /min [facility] Body height 2022-04-15 18:33:00 165.1 cm [facility] Body weight 2022-04-15 18:33:00 98.385 kg [facility] BMI 2022-04-15 18:33:00 36.09 kg/m2 [facility] Oxygen saturation in Arterial blood by Pulse oximetry 2022-04-15 18:33:00 97 /min [facility] BP Systolic 2024-06-10 14:11:00 138 mm[Hg] [facility] BP Diastolic 2024-06-10 14:11:00 104 mm[Hg] [facility] Weight Measured 2024-06-10 14:11:00 224.20 pounds [facility] Height Measured 2024-06-10 14:11:00 66.00 inches [facility] Body Temperature 2024-06-10 14:11:00 98.30 degrees [facility]ast[facility] Heart Rate 2024-06-10 14:11:00 95.00 /min [facility] Respiratory Rate 2024-06-10 14:11:00 18.00 /min [facility] BP Systolic 2024-04-25 15:09:00 155 mm[Hg] [facility] BP Diastolic 2024-04-25 15:09:00 92 mm[Hg] [facility] Weight Measured 2024-04-25 15:09:00 217.80 pounds [facility]ast[facility] Height Measured 2024-04-25 15:09:00 66.00 inches [facility] Body Temperature 2024-04-25 15:09:00 98.50 degrees Erast[facility] Hopkins Heart Rate 2024-04-25 15:09:00 112.00 /min [facility] Respiratory Rate 2024-04-25 15:09:00 19.00 /min [facility] Weight Measured 2024-03-22 10:21:00 217.00 pounds Erasto F Sandeep Height Measured 2024-03-22 10:21:00 66.00 inches Erasto F Sandeep Body Temperature 2024-03-22 10:21:00 98.30 degrees Erasto F Sandeep Heart Rate 2024-03-22 10:21:00 90.00 /min Erasto F Sandeep Respiratory Rate 2024-03-22 10:21:00 18.00 /min Erasto F Sandeep BP Systolic 2024-03-22 10:21:00 114 mm[Hg] Erasto F Sandeep BP Diastolic 2024-03-22 10:21:00 79 mm[Hg] Erasto F Sandeep BP Systolic 2024-03-07 10:54:00 115 mm[Hg] Erasto F Sandeep BP Diastolic 2024-03-07 10:54:00 70 mm[Hg] [facility]ast[facility] F [facility]eep Weight Measured 2024-03-07 10:54:00 217.00 pounds Erasto F Sandeep Height Measured 2024-03-07 10:54:00 66.00 inches Erasto F Sandeep Body Temperature 2024-03-07 10:54:00 98.40 degrees Erasto F Sandeep Heart Rate 2024-03-07 10:54:00 83.00 /min Erasto F Sandeep Respiratory Rate 2024-03-07 10:54:00 19.00 /min Erasto F Sandeep BP Diastolic 2024-01-25 10:44:00 80 mm[Hg] Erasto F Sandeep Weight Measured 2024-01-25 10:44:00 223.00 pounds Erasto F Sandeep Height Measured 2024-01-25 10:44:00 66.00 inches Erasto F Sandeep Body Temperature 2024-01-25 10:44:00 98.20 degrees Erasto F Sandeep Heart Rate 2024-01-25 10:44:00 77.00 /min Erasto F Sandeep Respiratory Rate 2024-01-25 10:44:00 19.00 /min Erasto F Sandeep BP Systolic 2024-01-25 10:44:00 118 mm[Hg] Erasto F Sandeep BP Systolic 2023-11-20 15:17:00 170 mm[Hg] Erasto F Sandeep BP Diastolic 2023-11-20 15:17:00 100 mm[Hg] [facility]asto F Sandeep Weight Measured 2023-11-20 15:17:00 230.20 pounds Erast[facility] Hopkins Height Measured 2023-11-20 15:17:00 66.00 inches Erasto Hopkins Body Temperature 2023-11-20 15:17:00 97.90 degrees Erasto Hopkins Heart Rate 2023-11-20 15:17:00 103.00 /min [facility] Hopkins Respiratory Rate 2023-11-20 15:17:00 18.00 /min Erast[facility] Hopkins BP Systolic 2023-09-11 15:49:00 147 mm[Hg] [facility] BP Diastolic 2023-09-11 15:49:00 94 mm[Hg] [facility] Weight Measured 2023-09-11 15:49:00 227.20 pounds Erast[facility] Hopkins Height Measured 2023-09-11 15:49:00 66.00 inches Erast[facility] Hopkins Body Temperature 2023-09-11 15:49:00 98.10 degrees Erasto Hopkins Heart Rate 2023-09-11 15:49:00 85.00 /min [facility] Respiratory Rate 2023-09-11 15:49:00 18.00 /min [facility] BP Systolic 2018-03-23 14:57:00 115 mm[Hg] Location: RUE; Position: Sitting [facility] BP Diastolic 2018-03-23 14:57:00 76 mm[Hg] Location: RUE; Position: Sitting [facility] Height 2018-03-23 14:57:00 64 [in_us] [facility] Weight 2018-03-23 14:57:00 216 [lb_av] [facility] Body Mass Index Calculated 2018-03-23 14:57:00 37.08 kg/m2 [facility] Heart Rate 2018-03-23 14:57:00 96 /min [facility] BP Systolic 2017-10-20 13:15:00 127 mm[Hg] Location: RUE; Position: Sitting [facility] BP Diastolic 2017-10-20 13:15:00 83 mm[Hg] Location: RUE; Position: Sitting [facility] Height 2017-10-20 13:15:00 64 [in_us] [facility] Weight 2017-10-20 13:15:00 222 [lb_av] [facility] Body Mass Index Calculated 2017-10-20 13:15:00 38.11 kg/m2 [facility] Heart Rate 2017-10-20 13:15:00 102 /min [facility] BP Systolic 2017-07-13 10:56:00 104 mm[Hg] Location: RUE; Position: Sitting [facility] BP Diastolic 2017-07-13 10:56:00 69 mm[Hg] Location: RUE; Position: Sitting [facility] Height 2017-07-13 10:56:00 64 [in_us] [facility] Weight 2017-07-13 10:56:00 215.2 [lb_av] [facility] Body Mass Index Calculated 2017-07-13 10:56:00 36.94 kg/m2 [facility] Heart Rate 2017-07-13 10:56:00 102 /min [facility] Procedures Procedure Date / Time Performed Performing Clinician Source TRANSTHORACIC ECHO (TTE) COMPLETE 2024-01-25 18:41:49 Huseyin Grant [facility] TROPONIN I 2023-03-21 00:28:00 Vince Stewart [facility] HEPATIC FUNCTION PANEL ([id number]) (ALB,T.PRO,BILI T,BU/BC,ALT,AST,ALK PHOS) 2023-03-21 00:28:00 Vince Stewart [facility] BASIC METABOLIC PANEL (NA, K, CL, CO2, GLUCOSE, BUN, CREATININE, CA) 2023-03-21 00:28:00 Vince Stewart [facility] CBC WITH DIFF 2023-03-21 00:28:00 Vince Stewart [facility] POCT TEST 2023-03-21 00:28:00 Vince Stewart [facility] N-TERMINAL PRO-BNP 2023-03-21 00:28:00 Vince Stewart [facility] XR CHEST 1 VW 2023-03-21 00:14:37 Vince Stewart [facility] CONSENT/REFUSAL FOR DIAGNOSIS AND TREATMENT 2023-03-20 23:09:03 Doctor Unassigned, [place] [facility] FL TIME OR (NON-REPORTABLE) 2023-02-17 18:26:44 Mindi Freeman [facility] XR HIPS 2 VW BILATERAL 2022-12-27 14:19:00 Arron Freeman [facility] AUTHORIZATION FOR RELEASE OF PHI 2022-11-22 05:01:00 Doctor Unassigned, [place] [facility] BASIC METABOLIC PANEL (NA, K, CL, CO2, GLUCOSE, BUN, CREATININE, CA) 2022-10-15 10:31:00 Ricky Alvarez [facility] CBC WITH DIFF 2022-10-15 10:31:00 Ricky Alvarez [facility] CT LUMBAR SPINE WO CONTRAST 2022-10-14 22:00:07 Becka Adena [facility] TEST, SERUM 2022-10-14 18:51:00 Becka Adena [facility] COMP. METABOLIC PANEL ([id number]) 2022-10-14 18:50:[facility]22-10-14 [facility]REATMENT 2022-10-14 18:07:21 Doctor Unassigned, [place] [facility] MR LUMBAR SPINE W WO CONTRAST 2022-10-07 18:08:00 Inna Corley [facility] CONSENT/REFUSAL FOR DIAGNOSIS AND TREATMENT 2022-10-07 16:19:46 Doctor Unassigned, [place] [facility] AUTHORIZATION FOR RELEASE OF PHI 2022-08-30 06:01:00 Doctor Unassigned, [place] [facility] PATIENT QUESTIONNAIRE 2022-08-02 06:01:00 Doctor Unassigned, [place] [facility] AUTHORIZATION FOR RELEASE OF PHI 2022-07-20 06:01:00 Doctor Unassigned, [place] [facility] BASIC METABOLIC PANEL (NA, K, CL, CO2, GLUCOSE, BUN, CREATININE, CA) 2022-07-12 09:10:00 Marcos Hamilton [facility] CBC WITH DIFF 2022-07-12 09:10:00 Marcos Hamilton [facility] BASIC METABOLIC PANEL (NA, K, CL, CO2, GLUCOSE, BUN, CREATININE, CA) 2022-07-12 09:10:00 Marcos Hamilton [facility] CBC WITH DIFF 2022-07-12 09:10:00 Marcos Hamilton [facility] TEST, SERUM 2022-07-11 23:06:00 Tori Perez [facility] TEST, SERUM 2022-07-11 23:06:00 Tori Perez [facility] CEREBRAL SPINAL FLUID LEAK REPAIR 2022-07-11 14:26:00 Romario [facility] SPINE IRRIGATION AND DEBRIDEMENT 2022-07-11 14:26:00 Romario [facility] CEREBRAL SPINAL FLUID LEAK REPAIR 2022-07-11 14:26:00 Romario [facility] SPINE IRRIGATION AND DEBRIDEMENT 2022-07-11 14:26:00 Romario [facility] HB ABO GROUPING 2022-07-11 12:46:00 Silvia [facility] HB ABO GROUPING 2022-07-11 12:46:00 Silvia [facility] CONSENT/REFUSAL FOR DIAGNOSIS AND TREATMENT 2022-07-11 11:59:18 Doctor Unassigned, [place] [facility] CONSENT/REFUSAL FOR DIAGNOSIS AND TREATMENT 2022-07-11 11:59:18 Doctor Unassigned, [place] [facility] ASSIGNMENT OF BENEFITS 2022-07-11 11:57:46 Docto r Unassigned, [place] [facility] ASSIGNMENT OF BENEFITS 2022-07-11 11:57:46 Docto r Unassigned, [place] [facility] MR LUMBAR SPINE W WO CONTRAST 2022-06-29 22:32:42 Luis Eduardo Govea [facility] BASIC METABOLIC PANEL (NA, K, CL, CO2, GLUCOSE, BUN, CREATININE, CA) 2022-06-06 10:31:00 David Davies [facility] CBC WITH DIFF 2022-06-06 10:31:00 David Davies [facility] BASIC METABOLIC PANEL (NA, K, CL, CO2, GLUCOSE, BUN, CREATININE, CA) 2022-06-05 13:39:00 Arturo Leos [facility] CBC WITH DIFF 2022-06-05 13:39:00 LeosArturo piedra [facility] CONSENT/REFUSAL FOR DIAGNOSIS AND TREATMENT 2022-06-05 12:47:31 Doctor Unassigned, [place] [facility] LAMINECTOMY LUMBAR 2022-06-03 14:02:00 [facility] 2022-06-03 14:02:00 Roselyn Doss [facility] HB ABO GROUPING 2022-06-03 13:48:00 Bryce Yates [facility] HB ABO GROUPING 2022-06-03 13:48:00 Bryce Yates [facility] PROTHROMBIN TIME / INR 2022-06-03 13:47:00 Trudy, Kristen [facility] ACTIVATED PARTIAL THRMPLAS MARIKA 2022-06-03 13:47:00 Trudy [facility] PROTHROMBIN TIME / INR 2022-06-03 13:47:00 Trudy, Kristen [facility] ACTIVATED PARTIAL THRMPLAS MARIKA 2022-06-03 13:47:00 Trudy [facility] BASIC METABOLIC PANEL (NA, K, CL, CO2, GLUCOSE, BUN, CREATININE, CA) 2022-06-03 09:32:00 Sol [facility] CBC WITH DIFF 2022-06-03 09:32:00 Eliceomarina [facility] BASIC METABOLIC PANEL (NA, K, CL, CO2, GLUCOSE, BUN, CREATININE, CA) 2022-06-03 09:32:00 Sara [facility] CBC WITH DIFF 2022-06-03 09:32:00 Eliceomarina [facility] MR LUMBAR SPINE W WO CONTRAST 2022-06-02 21:43:[address] [facility] MR LUMBAR SPINE W WO CONTRAST 2022-06-02 21:43:00 Marcos Hamilton [facility] CT LUMBAR SPINE WO CONTRAST 2022-06-02 17:15:44 Brittany Pérez [facility] CT LUMBAR SPINE WO CONTRAST 2022-06-02 17:15:44 Beto [facility] TEST, SERUM 2022-06-02 16:01:00 [facility] COMP. METABOLIC PANEL (55752) 2022-06-02 16:01:00 Beto [facility] CBC WITH DIFF 2022-06-02 [facility]:01[facility] 2022-06-02 16:01:00 Hindu [facility] COMP. METABOLIC PANEL (37892) 2022-06-02 16:01:00 Beto [facility] CBC WITH DIFF 2022-06-02 16:01:00 [facility] CONSENT/REFUSAL FOR DIAGNOSIS AND TREATMENT 2022-06-02 15:23:33 Doctor Unassigned, [place] [facility] CONSENT/REFUSAL FOR DIAGNOSIS AND TREATMENT 2022-06-02 15:23:33 Doctor Unassigned, [place] [facility] EMERGENCY SERVICES AGREEMENTS AND AUTHORIZATIONS 2022-06-02 05:01:00 Doctor Unassigned, [place] [facility] CONSENT/REFUSAL FOR DIAGNOSIS AND TREATMENT 2022-05-28 00:36:07 Doctor Unassigned, [place] [facility] MAGNESIUM 2022-05-14 10:25:00 [facility] BASIC METABOLIC PANEL (NA, K, CL, CO2, GLUCOSE, BUN, CREATININE, CA) 2022-05-14 10:25:00 Ale Yao [facility] BASIC METABOLIC PANEL (NA, K, CL, CO2, GLUCOSE, BUN, CREATININE, CA) 2022-05-12 10:27:00 Mary Jane Key [facility] CBC WITH DIFF 2022-05-12 10:27:00 Columba Key Rama [facility] BASIC METABOLIC PANEL (NA, K, CL, CO2, GLUCOSE, BUN, CREATININE, CA) 2022-05-12 10:27:00 Mary Jane Key [facility] CBC WITH DIFF 2022-05-12 10:27:00 Columba Key [facility] FL TIME OR (NON-REPORTABLE) 2022-05-11 18:27[facility]22 [facility] ([facility]-RE[facility]ABLE[facility] 2022-05-11 18:27:22 Romario [facility] FL TIME OR (NON-REPORTABLE) 2022-05-11 16:05:00 Romario [facility] FL TIME OR (NON-REPORTABLE) 2022-05-11 16:05:00 [facility] 1 2022-05-11 14:29:49 Romario [facility] XR LUMBAR SPINE 1 2022-05-11 14:29:49 Romario [facility] POSTERIOR LUMBAR INTERBODY SPINAL FUSION 2022-05-11 13:39:00 Romario [place] POSTERIOR LUMBAR INTERBODY SPINAL FUSION 2022-05-11 13:39:00 Romario [place] HB ABO GROUPING 2022-05-11 12:34:00 Dino Amr E [facility] HB ABO GROUPING 2022-05-11 12:34:00 Dino, Amr E [facility] ASSIGNMENT OF BENEFITS 2022-05-11 12:00:45 Docto r Unassigned, [place] [facility] XR LUMBAR SPINE FLEXION AND EXTENSION 2 2022-04-15 19:57:28 Angela Schuler [facility] [QLH] T4, FREE 2018-03-23 00:00:00 [facility] [QL[facility]] TSH, 3RD GENERATION 2018-03-23 00:00:00 [facility] US Thyroid [id number] 2018-03-23 00:00:00 [facility] [[facility]] TSH, 3RD GENERATION 2017-10-20 00:00:00 [facility] [QLH] T4, FREE 2017-10-20 00:00:00 [facility] US Thyroid 97096 2017-10-20 00:00:00 [facility] [QL[facility]] TSH, 3RD GENERATION 2017-07-13 00:00:00 [facility] [QLH] T4, FREE 2017-07-13 00:00:00 [facility] [QL[facility]] T3, FREE 2017-07-13 00:00:00 [facility] US Thyroid 48613 2017-07-13 00:00:00 [facility] US Thyroid 08880 2017-06-20 00:00:00 [facility] [place] [id number] 2017-06-20 00:00:00 [facility] History of Appendectomy [...] Diagnostic Test Pending 2019-03-23 00:00:00 US Thyroid 75633 [code = 72498] [facility] Diagnostic Test Pending 2019-03-23 00:00:00 US Thyroid 95675 [code = 35589] [facility] Diagnostic Test Pending 2019-03-23 00:00:00 US Thyroid 37566 [code = 79727] [facility] Diagnostic Test Pending 2019-03-23 00:00:00 US Thyroid 58337 [code = 22621] [facility] Diagnostic Test Pending 2018-04-22 00:00:00 [QLH] TSH, 3RD GENERATION [code = [QLH] TSH, 3RD GENERATION] [facility] Diagnostic Test Pending 2018-04-22 00:00:00 [QLH] T4, FREE [code = [QLH] T4, FREE] [facility] Diagnostic Test Pending 2018-04-22 00:00:00 US Thyroid 61711 [code = 26216] [facility] Diagnostic Test Pending 2018-01-11 00:00:00 US Thyroid 69989 [code = 91305] [facility] Diagnostic Test Pending 2018-01-11 00:00:00 US Thyroid 84635 [code = 94021] [facility] Diagnostic Test Pending 2018-01-11 00:00:00 US Thyroid 25080 [code = 64461] [facility] Diagnostic Test Pending 2017-10-11 00:00:00 [QLH] TSH, 3RD GENERATION [code = [QLH] TSH, 3RD GENERATION] [facility] Diagnostic Test Pending 2017-10-11 00:00:00 [QLH] [...] T3, FREE [code = [QLH] T3, FREE] [facility] Diagnostic Test Pending 2017-06-20 00:00:00 US Thyroid 75017 [code = 69945] [facility] Diagnostic Test Pending 2017-06-20 00:00:00 [place] [address] [code = 48282] [facility] Encounters Start Date/Time End Date/Time Encounter Type Admission Type Attending Clinicians Care Facility Care Department Encounter ID Source 2024 09:44:34 2024 09:44:[address] [facility] [id number] Erasto Hinds Sandeep 2024-06-10 14:09:29 2024-06-10 14:09:29 Outpatient SFA SUSAN [id number] Erasto Hinds Sandeep 2024-06-10 00:00:00 2024-06-10 00:00:00 Outpatient Visit SFA [id number] Erasto Hinds Sandeep 2024-04-25 15:03:55 2024-04-25 15:03:[address] [facility] [id number] Erasto Hopkins 2024-04-25 00:00:00 2024-04-25 00:00:00 Outpatient Visit SFA [id number] Erasto Hopkins 2024-04-22 11:00:00 2024-04-22 11:00:00 Outpatient R NITESH EAGLE [facility] [id number] [facility] 2024-03-05 00:00:00 2024-04-06 18:21:31 Patient Secure Msg Doctor Unassigned, [place] Doctor Unassigned, [place] [facility] 1.2.840.114 350.1.13.10 4.2.7.2.686 [id number] [facility] 2024-03-22 13:37:30 2024-03-22 13:37:[address] [facility] [id number] Erasto Hopkins 2024-03-22 00:00:00 2024-03-22 00:00:00 Outpatient Visit SFA [id number] Erasto Hopkins 2024-03-07 10:45:24 2024-03-07 10:45:[address] [facility] [id number] Erasto Hopkins 2024-03-07 00:00:00 2024-03-07 00:00:00 Outpatient Visit SFA [id number] Erasto Hopkins 2024-01-26 00:00:00 2024-01-26 16:10:49 Telephone Huseyin Grant [facility] MEDICAL OFFICE BUILD[facility] 1.2.840.114 350.1.13.10 4.2.7.2.686 [id number] [facility] 2024-01-25 13:33:48 2024-01-25 23:59:00 Outpatient R HUSEYIN GRANT [facility] [id number] [facility] 2024-01-25 13:33:48 2024-01-25 23:59:00 [facility] 1.2.840.114 350.1.13.10 4.2.7.2.686 [id number] [facility] 2024-01-25 12:48:30 2024-01-25 13:32:00 Hospital Encounter Juanita [facility] BUILDING 1.2.840.114 350.1.13.10 4.2.7.2.686 [id number] [facility] 2024-01-25 10:37:56 2024-01-25 10:37:[address] [facility] [id number] Erasto Hopkins 2024-01-25 00:00:00 2024-01-25 00:00:00 Outpatient Visit SFA [id number] Erasto Hopkins 2024-01-22 14:40:00 2024-01-22 15:00:00 Office Visit Piper Hou [facility] BUILDING 1.2.840.114 350.1.13.10 4.2.7.2.686 [id number] [facility] 2024-01-22 14:40:00 2024-01-22 14:40:00 Outpatient R PIPER HOU [facility] [id number] [facility] 2024-01-08 11:30:00 2024-01-08 12:29:23 Outpatient R HUSEYIN GRANT [facility] [id number] [facility] 2024-01-08 11:30:00 2024-01-08 12:29:23 Office Visit Juanita [facility] BUILDING 1.2.840.114 350.1.13.10 4.2.7.2.686 [id number] [facility] 2023-12-08 13:30:00 2023-12-08 13:30:00 Outpatient CELINA MCKNIGHT [facility] [id number] [facility] 2023-11-21 09:06:47 2023-11-21 09:06:47 Outpatient SFA SFA [id number] Erasto Hopkins 2023-11-20 15:11:51 2023-11-20 15:11:[address] [facility] [id number] Erasto Hopkins 2023-11-09 00:00:00 2023-11-09 00:00:00 Refill Aquiles Watts [facility] 1.2.840.114 350.1.13.10 4.2.7.2.686 [id number] [facility] 2023-10-06 14:45:30 2023-10-06 14:45:[address] [facility] [id number] Erasto Hopkins 2023-09-11 16:57:06 2023-09-11 16:57:[address] [facility] [id number] Erasto Hopkins 2023-07-14 00:00:00 2023-07-14 00:00:00 Refill Mitchell Manzanares [facility] 1.2.840.114 350.1.13.10 4.2.7.2.686 [id number] [facility] 2023-06-23 00:00:00 2023-06-23 00:00:00 Telephone Caroline Prasad [facility] [place] 1.2.840.114 350.1.13.10 4.2.7.2.686 [id number] [facility] 2023-05-05 13:30:00 2023-05-05 13:30:00 Outpatient MINDI MARTÍNEZ [facility] [id number] [facility] 2023-04-18 10:10:00 2023-04-18 10:10:00 Outpatient R DOLLYANTONI Arora [facility] [id number] [facility] 2023-04-03 00:00:00 2023-04-03 00:00:00 Telephone Caroline Prasad [facility] 1.2.840.114 350.1.13.10 4.2.7.2.686 [id number] [facility] 2023-04-03 00:00:00 2023-04-03 00:00:00 Patient Secure Msg Doctor Unassigned, [place] [facility] 1.2.840.114 350.1.13.10 4.2.7.2.686 [id number] [facility] 2023-03-28 10:45:00 2023-03-28 11:00:00 Tire Curer Visit Pcp-Lavinia Phillips Belfield [facility] 1.2.840.114 350.1.13.10 4.2.7.2.686 [id number] [facility] 2023-03-28 09:50:00 2023-03-28 10:43:57 Outpatient R ARIN DAVID [facility] [id number] [facility] 2023-03-28 09:50:00 2023-03-28 10:43:57 Office Visit Caroline Prasad [facility] PRIMARY CARE PAVILLION 1.2.840.114 350.1.13.10 4.2.7.2.686 [id number] [facility] 2023-03-20 18:26:00 2023-03-20 21:47:00 Emergency X VINCE STEWART [facility] ERT [id number] [facility] 2023-03-20 18:26:00 2023-03-20 21:47:00 Emergency Vince Stewart [facility] 1.114 350.1.13.10 4.2.7.2.686 [id number] [facility] 2023-03-20 17:20:00 2023-03-20 17:34:16 Outpatient R HAY MAHONEY [facility] [id number] [facility] 2023-03-20 17:20:00 2023-03-20 17:34:16 Urgent Care Hay aMhoney Unknown, Attending [facility] 1.114 350.1.13.10 4.2.7.2.686 [id number] [facility] 2023-03-20 00:00:00 2023-03-20 00:00:00 Orders Only Doctor Unassigned, [place] [facility] 1.114 350.1.13.10 4.2.7.2.686 [id number] [facility] 2023-03-10 10:00:00 2023-03-10 10:00:00 Outpatient R MINDI FREEMAN [facility] [id number] [facility] 2023-02-21 11:00:00 2023-02-21 11:00:00 Outpatient R MINDI FREEMAN [facility] [id number] [facility] 2023-02-17 13:05:11 2023-02-17 23:59:00 Hospital Encounter Mindi Freeman [facility] AND [facility] 1.114 350.1.13.10 4.2.7.2.686 [id number] [facility] 2023-02-17 11:00:00 2023-02-17 11:30:00 Office Visit Mindi Freeman [facility] 1..114 350.1.13.10 4.2.7.2.686 [id number] [facility] 2023-02-17 11:00:00 2023-02-17 11:00:00 Outpatient R MINDI FREEMAN [facility] [id number] [facility] 2023-02-13 00:00:00 2023-02-13 00:00:00 Telephone Mindi Freeman [facility] CENTER AND [facility] 1.84.114 350.1.13.10 4.2.7.2.686 [id number] [facility] 2023-01-30 09:15:00 2023-01-30 09:15:00 Outpatient ROSELYN BURRIS [facility] [id number] [facility] 2022-12-30 00:00:00 2022-12-30 00:00:00 Telephone Mitchell Manzanares [facility] 1.840.114 350.1.13.10 4.2.7.2.686 [id number] [facility] 2022-12-27 08:43:57 2022-12-27 23:59:00 Hospital Encounter Mindi Freeman [facility] 1.840.114 350.1.13.10 4.2.7.2.686 [id number] [facility] 2022-12-27 08:21:57 2022-12-27 08:42:00 Outpatient DAVID ROWLAND [facility] [id number] [facility] 2022-12-27 08:15:00 2022-12-27 08:42:00 Hospital Encounter [facility] 1.84.114 350.1.13.10 4.2.7.2.686 [id number] [facility] 2022-12-20 11:00:00 2022-12-20 11:00:00 Outpatient ROSELYN BURRIS [facility] [id number] [facility] 2022-12-15 08:00:00 2022-12-15 09:03:28 Outpatient R RENALDOVITOHEIDI LOFTONAR [facility] [id number] [facility] 2022-12-15 08:00:00 2022-12-15 09:03:28 Office Visit Mitchell Manzanares Lindymyrna David [facility] 1.84.114 350.1.13.10 4.2.7.2.686 [id number] [facility] 2022-12-15 00:00:00 2022-12-15 00:00:00 Telephone Mitchell Manzanares juan [facility] [place] 1.840.114 350.1.13.10 4.2.7.2.686 [id number] [facility] 2022-12-14 14:30:00 2022-12-14 14:30:00 Outpatient R MINDI FREEMAN [facility] [id number] [facility] 2022-12-13 11:00:00 2022-12-13 11:58:52 Outpatient ALEN PERALES [facility] [id number] [facility] 2022-12-13 11:00:00 2022-12-13 11:58:52 Ancillary Visit Helena Hernandez Craig L [facility] 1..114 350.1.13.10 4.2.7.2.686 [id number] [facility] 2022-12-12 00:00:00 2022-12-12 00:00:00 Telephone Mindi Freeman [facility] 1..114 350.1.13.10 4.2.7.2.686 [id number] [facility] 2022-12-06 10:30:00 2022-12-06 11:23:02 Outpatient R MINDI FREEMAN [facility] [id number] [facility] 2022-12-06 10:30:00 2022-12-06 11:23:02 Office [address] Mindi Freeman [facility] 1.840.114 350.1.13.10 4.2.7.2.686 [id number] [facility] 2022-11-28 08:00:00 2022-11-28 09:09:28 Outpatient R ROSELYN DOSS [facility] [id number] [facility] 2022-11-22 00:00:00 2022-11-22 00:00:00 Orders Only Doctor Unassigned, [place] [facility] 1.840.114 350.1.13.10 4.2.7.2.686 [id number] [facility] 2022-11-18 00:00:00 2022-11-18 00:00:00 Telephone Mitchell Manzanares [facility] 1.2840.114 350.1.13.10 4.2.7.2.686 [id number] [facility] 2022-11-16 13:15:00 2022-11-16 13:30:00 Tire Curer Visit Pcp-Lab Pathology [facility] 1.2840.114 350.1.13.10 4.2.7.2.686 [id number] [facility] 2022-11-16 10:30:00 2022-11-16 13:06:05 Outpatient AQUILES POLANCO [facility] [id number] [facility] 2022-11-16 10:30:00 2022-11-16 13:06:05 Office Visit Mitchell Manzanares [facility] 1.2840.114 350.1.13.10 4.2.7.2.686 [id number] [facility] 2022-11-16 13:00:00 2022-11-16 13:00:00 Outpatient OLU DUNAWAY CATHY [facility] [id number] [facility] 2022-11-03 10:00:00 2022-11-03 10:30:05 Outpatient MINDI MARTÍNEZ [facility] [id number] [facility] 2022-11-03 10:00:00 2022-11-03 10:30:05 Office Visit Mindi Freeman [facility] PRIMARY CARE PAVILLION 1..840.114 350.1.13.10 4.2.7.2.686 [id number] [facility] 2022-10-18 14:30:00 2022-10-18 14:59:07 Outpatient MINDI MARTÍNEZ [facility] [id number] [facility] 2022-10-18 14:30:00 2022-10-18 14:59:07 Office Visit Mindi Freeman [facility] AND [facility] 1..840.114 350.1.13.10 4.2.7.2.686 [id number] [facility] 2022-10-14 12:12:00 2022-10-15 18:21:00 Outpatient Rebecca ALVAREZ RICKY [facility] [id number] [facility] 2022-10-14 12:12:00 2022-10-15 18:21:00 Emergency Jovel, Tang Alvarez [facility] 1..840.114 350.1.13.10 4.2.7.2.686 [id number] [facility] 2022-10-14 09:00:00 2022-10-14 12:11:00 Outpatient FERNANDO SCHRADER [facility] [id number] [facility] 2022-10-14 09:00:00 2022-10-14 09:30:00 Office Visit Fernando Tena [facility] 1.2840.114 350.1.13.10 4.2.7.2.686 [id number] [facility] 2022-10-12 00:00:00 2022-10-12 00:00:00 Angela Shelby [facility] MEDICAL OFFICE BUILD[facility] 1..114 350.1.13.10 4.2.7.2.686 [id number] [facility] 2022-10-12 00:00:00 2022-10-12 00:00:00 Mindi Gleason [facility] 1.0.114 350.1.13.10 4.2.7.2.686 [id number] [facility] 2022-10-10 09:30:00 2022-10-10 10:53:28 Outpatient ROSELYN BURRIS [facility] [id number] [facility] 2022-10-07 10:20:15 2022-10-07 23:59:00 Outpatient INNA MCINTOSH [facility] [id number] [facility] 2022-10-07 10:20:15 2022-10-07 23:59:00 Hospital Encounter Inna Corley [facility] 1..114 350.1.13.10 4.2.7.2.686 [id number] [facility] 2022-10-07 00:00:00 2022-10-07 00:00:00 Orders Only Doctor Unassigned, [place] [facility] 1.0.114 350.1.13.10 4.2.7.2.686 [id number] [facility] 2022-10-03 10:30:00 2022-10-03 12:24:03 Outpatient ROSELYN BURRIS [facility] [id number] [facility] 2022-09-22 00:00:00 2022-09-22 00:00:[address] [facility] AND [facility] 1.840.114 350.1.13.10 4.2.7.2.686 [id number] [facility] 2022-09-21 14:30:00 2022-09-21 15:07:59 Outpatient R MINDI FREEMAN [facility] [id number] [facility] 2022-09-21 14:30:00 2022-09-21 15:07:59 Office Visit Mindi Freeman [facility] AND [facility] 1.840.114 350.1.13.10 4.2.7.2.686 [id number] [facility] 2022-09-15 11:00:00 2022-09-15 11:00:00 [facility] [id number] [facility] 2022-09-05 10:45:00 2022-09-05 11:34:33 Outpatient [facility] [id number] [facility] 2022-09-05 10:45:00 2022-09-05 11:34:33 Office Visit Roselyn Doss [facility] OFFICE BUILDING 1..840.114 350.1.13.10 4.2.7.2.686 [id number] [facility] 2022-09-02 13:00:00 2022-09-02 13:37:00 [facility] [id number] [facility] 2022-09-02 13:00:00 2022-09-02 13:37:00 Office Visit Clinic, Neurosurger y Resident Romario Ros[facility] 1.2.840.114 350.1.13.10 4.2.7.2.686 [id number] 196 [id number] [facility] 2022-08-30 00:00:00 2022-08-30 00:00:00 Orders Only Doctor Unassigned, [place] [facility] 1.2.840.114 350.1.13.10 4.2.7.2.686 [id number] [facility] 2022-08-26 00:00:00 2022-08-26 00:00:00 Telephone [facility] MEDICAL OFFICE BUILDING 1.2.840.114 350.1.13.10 4.2.7.2.686 [id number] 196 [id number] [facility] 2022-08-26 00:00:00 2022-08-26 00:00:00 Henrique Herr [facility] 1.2.840.114 350.1.13.10 4.2.7.2.686 [id number] [facility] [id number] [facility] 2022-08-18 12:15:00 2022-08-18 12:30:00 Office Visit [facility] MEDICAL OFFICE BUILDING 1.2.840.114 350.1.13.10 4.2.7.2.686 [id number] 196 [id number] [facility] 2022-08-18 12:15:00 2022-08-18 12:15:00 Outpatient R ROMARIO [facility] [id number] [facility] 2022-08-06 00:00:00 2022-08-06 00:00:00 Telephone [facility] MEDICAL OFFICE BUILDING 1.2.840.114 350.1.13.10 4.2.7.2.686 [id number] 196 [id number] [facility] 2022-08-04 10:00:00 2022-08-04 11:10:46 Outpatient R ROMARIO, [facility] [id number] [facility] 2022-08-04 10:00:00 2022-08-04 11:10:46 Office Visit [facility] MEDICAL OFFICE BUILDING 1.2.840.114 350.1.13.10 4.2.7.2.686 [id number] 196 [id number] [facility] 2022-08-04 09:30:00 2022-08-04 09:30:00 Outpatient R ROMARIO [facility] [id number] [facility] 2022-08-02 00:00:00 2022-08-02 00:00:00 Orders Only Doctor Unassigned, [place] [facility] 1.2.840.114 350.1.13.10 4.2.7.2.686 [id number] [facility] 2022-08-02 00:00:00 2022-08-02 00:00:00 Patient Secure Msg Doctor Unassigned, [place] [facility] MEDICAL OFFICE BUILDING 1.2.840.114 350.1.13.10 4.2.7.2.686 [id number] [facility] 2022-08-01 00:00:00 2022-08-01 00:00:00 Telephone [facility] MEDICAL OFFICE BUILDING 1.2.840.114 350.1.13.10 4.2.7.2.686 [id number] 196 [id number] [facility] 2022-07-28 09:30:00 2022-07-28 09:30:00 Outpatient HENRIQUE ZAYAS [facility] [id number] [facility] 2022-07-25 11:45:00 2022-07-25 12:00:00 Office Visit [facility] MEDICAL OFFICE BUILDING 1.2.840.114 350.1.13.10 4.2.7.2.686 [id number] [facility] 2022-07-25 11:45:00 2022-07-25 11:45:00 Outpatient ROSELYN BURRIS [facility] [id number] [facility] 2022-07-22 00:00:00 2022-07-22 00:00:00 Telephone AlfonsoMarcos [facility] MEDICAL OFFICE BUILDING 1.2.840.114 350.1.13.10 4.2.7.2.686 [id number] [facility] 2022-07-20 00:00:00 2022-07-20 00:00:00 Orders Only Doctor Unassigned, [place] [facility] 1.2.840.114 350.1.13.10 4.2.7.2.686 [id number] [facility] 2022-07-18 00:00:00 2022-07-18 00:00:00 [facility] 1.2.840.114 350.1.13.10 4.2.7.2.686 [id number] [facility] 2022-07-13 00:00:00 2022-07-13 00:00:00 [facility] 1.2.840.114 350.1.13.10 4.2.7.2.686 [id number] [facility] 2022-07-13 00:00:00 2022-07-13 00:00:00 Patient Secure Msg Doctor Unassigned, [place] [facility] 1.2.840.114 350.1.13.10 4.2.7.2.686 [id number] [facility] 2022-07-11 05:57:00 2022-07-12 18:30:00 Outpatient BRITTANY RILEY BRITTANY [facility] [id number] [facility] 2022-07-11 05:57:00 2022-07-12 18:30:00 Hospital Encounter Roselyn Doss Talha [facility] ([facility]) 1.2.840.114 350.1.13.10 4.2.7.2.686 [id number] [facility] 2022-07-11 07:50:00 2022-07-11 10:00:00 Surgery Romario [facility] ([facility]) 1.2.840.114 350.1.13.10 4.2.7.2.686 [id number] [facility] 2022-07-10 00:00:00 2022-07-10 00:00:00 Outpatient Leonie DOSS [facility] [id number] [facility] 2022-07-07 14:30:00 2022-07-07 14:35:00 Pre-Anesth esia Evaluation Call, [facility] Apa Phone [facility] ([facility]) 1.2.840.114 350.1.13.10 4.2.7.2.686 [id number] [facility] 2022-07-07 12:45:00 2022-07-07 13:00:00 Office Visit [facility] MEDICAL OFFICE BUILDING 1.2.840.114 350.1.13.10 4.2.7.2.686 [id number] [facility] 2022-07-07 12:45:00 2022-07-07 12:45:00 Outpatient Leonie DOSS [facility] [id number] [facility] 2022-07-05 00:00:00 2022-07-05 00:00:00 Telephone [facility] MEDICAL OFFICE BUILDING 1.2.840.114 350.1.13.10 4.2.7.2.686 [id number] [facility] 2022-07-03 00:00:00 2022-07-03 00:00:00 Patient Secure Msg Doctor Unassigned, [place] [facility] 1.2.840.114 350.1.13.10 4.2.7.2.686 [id number] [facility] 2022-06-29 14:52:11 2022-06-29 23:59:00 Outpatient R ORMARIO [facility] [id number] [facility] 2022-06-29 14:52:11 2022-06-29 23:59:00 [facility] 1..840.114 350.1.13.10 4.2.7.2.686 [id number] [facility] 2022-06-27 13:00:00 2022-06-27 17:11:30 Outpatient R ROMARIO [facility] [id number] [facility] 2022-06-27 13:00:00 2022-06-27 17:11:30 Office Visit Romario [facility] OFFICE BUILDING 1.2.840.114 350.1.13.10 4.2.7.2.686 [id number] [facility] 2022-06-27 14:15:00 2022-06-27 14:30:00 Tire Curer Visit Draw, [facility] 1.2.840.114 350.1.13.10 4.2.7.2.686 [id number] [facility] 2022-06-24 00:00:00 2022-06-24 00:00:00 Telephone [facility] OFF[facility] BUILDING 1.2.840.114 350.1.13.10 4.2.7.2.686 [id number] [facility] 2022-06-21 13:00:00 2022-06-21 14:33:03 Office Visit Mindi Freeman [facility] 1.840.114 350.1.13.10 4.2.7.2.686 [id number] [facility] 2022-06-21 13:00:00 2022-06-21 14:33:03 Outpatient R MINDI FREEMAN [facility] [id number] [facility] 2022-06-21 13:00:00 2022-06-21 13:00:00 Outpatient MINDI MARTÍNEZ [facility] [id number] [facility] 2022-06-21 13:00:00 2022-06-21 13:00:00 Outpatient MINDI MARTÍNEZ [facility] [id number] [facility] 2022-06-21 13:00:00 2022-06-21 13:00:00 Outpatient R MINDI FREEMAN [facility] [id number] [facility] 2022-06-17 13:40:00 2022-06-17 14:40:05 Outpatient MARCIO ARCE [facility] [id number] [facility] 2022-06-17 13:40:00 2022-06-17 14:40:05 Office Visit Clinic, Neurosurger y Resident Marcio Woodruff [facility] 1.840.114 350.1.13.10 4.2.7.2.686 [id number] [facility] 2022-06-15 13:45:00 2022-06-15 13:45:00 Outpatient RAY ROCHE [facility] [id number] [facility] 2022-06-13 09:30:00 2022-06-13 12:35:45 Outpatient HENRIQUE ZAYAS [facility] [id number] [facility] 2022-06-13 09:30:00 2022-06-13 12:35:45 Office Visit Henrique Russo [facility] 1.840.114 350.1.13.10 4.2.7.2.686 [id number] [facility] 2022-06-13 00:00:00 2022-06-13 00:00:00 Telephone Romario Roselyn [facility] MEDICAL OFFICE BUILDING 1.840.114 350.1.13.10 4.2.7.2.686 [id number] [facility] 2022-06-07 07:30:00 2022-06-07 07:30:00 Outpatient MARCOS GALLARDO [facility] [id number] [facility] 2022-06-05 07:47:00 2022-06-06 12:30:00 Outpatient X DAMON [facility] [id number] [facility] 2022-06-05 07:47:00 2022-06-06 12:30:00 [facility] 1.[facility].114 350.1.13.10 4.2.7.2.686 [id number] [facility] 2022-06-06 09:45:00 2022-06-06 09:45:00 Outpatient R RANDAL DOSSHI [facility] [id number] [facility] 2022-06-06 00:00:00 2022-06-06 00:00:00 Transition of Care Leslie Castro 1.840.114 350.1.13.[id number] [facility] [id number] [facility] 2022-06-02 10:30:00 2022-06-04 13:19:00 Inpatient X SARA BRIAN [facility] [id number] [facility] 2022-06-02 10:30:00 2022-06-04 13:19:00 Hospital Encounter Brittany Pérez [facility] ([facility]) 1.2.840.114 350.1.13.10 4.2.7.2.686 [id number] [facility] 2022-06-03 09:30:00 2022-06-03 13:57:00 [facility] 1.2.840.114 350.1.13.10 4.2.7.2.686 [id number] [facility] 2022-06-01 13:15:00 2022-06-01 14:14:41 Outpatient R MARCOS RUELAS [facility] [id number] [facility] 2022-06-01 13:15:00 2022-06-01 14:14:41 Ancillary Visit Davey Rodrigues Brian A [facility] 1.2.840.114 350.1.13.10 4.2.7.2.686 [id number] [facility] 2022-06-01 00:00:00 2022-06-01 00:00:00 Patient Secure Msg Henrique Russo [facility] 1.2.840.114 350.1.13.10 4.2.7.2.686 [id number] [facility] 2022-05-31 00:00:00 2022-05-31 00:00:00 Telephone [facility] MEDICAL OFFICE BUILDING 1.2.840.114 350.1.13.10 4.2.7.2.686 [id number] [facility] 2022-05-27 19:43:00 2022-05-28 00:42:00 Emergency [facility] [id number] [facility] 2022-05-27 19:43:00 2022-05-28 00:42:00 Emergency Luiza Potter [facility] 1.2.840.114 350.1.13.10 4.2.7.2.686 [id number] [facility] 2022-05-27 16:15:00 2022-05-27 16:30:00 Nurse Visit Nurse, Miguelito Adult Urgent Unknown, Attending Myrna Blankenship [facility] 1.2.840.114 350.1.13.10 4.2.7.2.686 [id number] [facility] 2022-05-27 16:15:00 2022-05-27 16:05:47 Outpatient R MYRNA BLANKENSHIP [facility] [id number] [facility] 2022-05-27 00:00:00 2022-05-27 00:00:00 Patient Secure Msg Henrique Russo [facility] 1.2.840.114 350.1.13.10 4.2.7.2.686 [id number] [facility] 2022-05-26 11:15:00 2022-05-26 12:33:38 Ancillary Visit Davey Rodrigues Brian A [facility] 1.2.840.114 350.1.13.10 4.2.7.2.686 [id number] [facility] 2022-05-20 00:00:00 2022-05-20 00:00:00 Telephone Roselyn Doss [facility] MEDICAL OFFICE BUILDING 1.2.840.114 350.1.13.10 4.2.7.2.686 [id number] [facility] 2022-05-19 00:00:00 2022-05-19 00:00:00 Telephone Leesa Weathers [facility] 1.2.840.114 350.1.13.10 4.2.7.2.686 [id number] [facility] 2022-05-18 11:30:00 2022-05-18 12:00:00 Office Visit Henrique Russo [facility] 1.2.840.114 350.1.13.10 4.2.7.2.686 [id number] [facility] [id number] [facility] 2022-05-18 11:30:00 2022-05-18 11:30:00 Outpatient R HENRIQUE RUSSO [facility] [id number] [facility] 2022-05-16 00:00:00 2022-05-16 00:00:00 Patient [facility] 1.2840.114 350.1.13.10 4.2.7.2.686 [id number] [facility] 2022-05-16 00:00:00 2022-05-16 00:00:00 Patient Secure [facility] 1.2840.114 350.1.13.10 4.2.7.2.686 [id number] [facility] 2022-05-16 00:00:00 2022-05-16 00:00:00 Patient Secure Msg Doctor Unassigned, [place] [facility] 1.2.840.114 350.1.13.10 4.2.7.2.686 [id number] [facility] 2022-05-11 07:00:00 2022-05-15 16:32:00 Outpatient R ANTONIO RICKY [facility] [id number] [facility] 2022-05-11 07:00:00 2022-05-15 16:32:00 Hospital Encounter Roselyn Doss Peter Phalak [facility] ([facility]) 1.2.840.114 350.1.13.10 4.2.7.2.686 [id number] [facility] 2022-05-11 08:40:00 2022-05-11 12:46:00 [facility] 1.2.840.114 350.1.13.10 4.2.7.2.686 [id number] [facility] 2022-05-11 00:00:00 2022-05-11 00:00:00 Orders Only Doctor Unassigned, [place] [facility] 1.2.840.114 350.1.13.10 4.2.7.2.686 [id number] [facility] 2022-05-09 10:15:00 2022-05-09 10:30:00 Tire Curer Visit Only, [facility] Test Queenie [facility] 1.2840.114 350.1.13.10 4.2.7.2.686 [id number] [facility] 2022-05-09 10:15:00 2022-05-09 10:15:00 Outpatient R NYA MTZ [facility] [id number] [facility] 2022-05-09 09:30:00 2022-05-09 09:45:00 Office Visit Leesa Weathers [facility] 1.2840.114 350.1.13.10 4.2.7.2.686 [id number] [facility] 2022-05-06 13:05:00 2022-05-06 13:10:00 Pre-Anesth esia Evaluation Call, [facility] Apa Phone [facility] ([facility]) 1.2840.114 350.1.13.10 4.2.7.2.686 [id number] [facility] 2022-04-25 11:30:00 2022-04-25 11:45:00 Office Visit [facility] MEDICAL OFFICE BUILDING 1.2.840.114 350.1.13.10 4.2.7.2.686 [id number] [facility] 2022-04-25 11:30:00 2022-04-25 11:30:00 Outpatient ROSELYN BURRIS [facility] [id number] [facility] 2022-04-24 12:47:37 2022-04-24 23:59:00 Outpatient ANGELA FONTANEZ [facility] [id number] [facility] 2022-04-24 12:47:37 2022-04-24 23:59:00 Hospital Encounter Angela Schuler [facility] 1.840.114 350.1.13.10 4.2.7.2.686 [id number] [facility] 2022-04-15 14:15:00 2022-04-15 23:59:00 Outpatient Leonie SCHULER ANGELA [facility] [id number] [facility] 2022-04-15 14:15:00 2022-04-15 23:59:00 Outpatient Leonie SCHULER ANGELA [facility] [id number] [facility] 2022-04-15 14:15:00 2022-04-15 23:59:00 Hospital Encounter Angela Schuler [facility] ([facility]) 1..840.114 350.1.13.10 4.2.7.2.686 [id number] [facility] 2022-04-15 13:30:00 2022-04-15 14:00:00 Office Visit Angela Schuler [facility] MEDICAL OFFICE BUILDING 1..840.114 350.1.13.10 4.2.7.2.686 [id number] [facility] 2022-04-15 08:00:00 2022-04-15 08:00:00 Outpatient MINDI MARTÍNEZ [facility] [id number] [facility] 2022-04-10 00:00:00 2022-04-10 00:00:00 Letter (Out) Kristin Johnson [facility] 1.840.114 350.1.13.10 4.2.7.2.686 [id number] [facility] 2022-04-09 14:00:00 2022-04-09 14:23:00 Outpatient ANGELINE DUBON [facility] [id number] [facility] 2022-04-09 14:00:00 2022-04-09 14:23:00 Urgent Care Angeline Lugo Kathleen [facility] 1..840.114 350.1.13.10 4.2.7.2.686 [id number] [facility] 2022-04-09 14:00:00 2022-04-09 14:23:00 Outpatient Leonie LUGO [facility] [id number] [facility] 2022-04-09 14:00:00 2022-04-09 14:23:00 Outpatient Leonie LUGO [facility] [id number] [facility] 2022-03-29 00:00:00 2022-03-29 00:00:00 Telephone Mindi Freeman [facility] 1..840.114 350.1.13.10 4.2.7.2.686 [id number] [facility] 2022-03-28 11:00:00 2022-03-28 11:23:07 Outpatient MARCUS ROLLINS BRENT [facility] [id number] [facility] 2022-03-28 11:00:00 2022-03-28 11:23:07 Office Visit Leesa Weathers Brent C [facility] 1.840.114 350.1.13.10 4.2.7.2.686 [id number] [facility] 2022-03-28 11:00:00 2022-03-28 11:23:07 Outpatient MARCUS ROLLINS BRENT [facility] [id number] [facility] 2022-03-17 14:30:00 2022-03-17 15:34:47 Outpatient R PETEMINDI [facility] [id number] [facility] 2022-03-17 14:30:00 2022-03-17 15:34:47 Office Visit PeteMindi [facility] 1..114 350.1.13.10 4.2.7.2.686 [id number] [facility] 2022-03-14 00:00:00 2022-03-14 00:00:00 Telephone [facility] 1..114 350.1.13.10 4.2.7.2.686 [id number] [facility] 2022-03-06 09:26:52 2022-03-06 23:59:00 Outpatient R SATISH JACQUES [facility] [id number] [facility] 2022-03-06 09:26:52 2022-03-06 23:59:00 Hospital Encounter Satish Jacques [facility] 1..114 350.1.13.10 4.2.7.2.686 [id number] [facility] 2022-02-24 13:45:00 2022-02-24 16:00:58 Outpatient LEISA MORRIS [facility] [id number] [facility] 2022-02-24 13:45:00 2022-02-24 16:00:58 Outpatient LEISA MORRIS [facility] [id number] [facility] 2022-02-24 13:45:00 2022-02-24 14:00:00 Nurse Visit Visit, [facility] Dermatology Nurse Leisa Horowitz [facility] 1..114 350.1.13.10 4.2.7.2.686 [id number] [facility] 2022-02-21 11:30:00 2022-02-21 11:55:08 Outpatient R SATISH JACQUES [facility] [id number] [facility] 2022-02-21 11:30:00 2022-02-21 11:55:08 Office Visit Satish Jacques [facility] 1.2.840.114 350.1.13.10 4.2.7.2.686 [id number] [facility] 2022-02-21 11:30:00 2022-02-21 11:55:08 Outpatient SATISH ESCALANTE [facility] [id number] [facility] 2022-02-21 11:30:00 2022-02-21 11:55:08 Outpatient R SATISH JACQUES [facility] [id number] [facility] 2022-02-17 13:30:00 2022-02-17 14:09:40 Outpatient MARCUS ROLLINS BRENT [facility] [id number] [facility] 2022-02-15 13:30:00 2022-02-15 13:30:00 Outpatient SATISH ESCALANTE [facility] [id number] [facility] 2022-02-15 13:30:00 2022-02-15 13:30:00 Outpatient SATISH ESCALANTE [facility] [id number] [facility] 2022-02-14 10:30:00 2022-02-14 10:45:00 Office Visit Leesa Weathers Erica [facility] 1.2.840.114 350.1.13.10 4.2.7.2.686 [id number] [facility] 2022-02-14 10:30:00 2022-02-14 10:30:00 Outpatient NYA ROLLINS [facility] [id number] [facility] 2022-02-14 10:30:00 2022-02-14 10:30:00 Outpatient R NYA MTZ [facility] [id number] [facility] 2022-02-14 10:30:00 2022-02-14 10:30:00 Outpatient R NYA MTZ [facility] [id number] [facility] 2022-01-20 00:00:00 2022-01-20 00:00:00 Telephone Henrique Russo [facility] 1.2.840.114 350.1.13.10 4.2.7.2.686 [id number] [facility] 2022-01-18 09:30:00 2022-01-18 10:00:00 Office Visit Rafaela Henrique [facility] 1.2.840.114 350.1.13.10 4.2.7.2.686 [id number] [facility] 2022-01-18 09:30:00 2022-01-18 09:30:00 Out[facility] [id number] [facility] 2022-01-16 18:48:00 2022-01-16 23:00:00 Emergency X SARA CHICAS [facility] E[facility] [id number] [facility] 2022-01-16 18:48:00 2022-01-16 23:00:00 Emergency Sara Chicas S [facility] 1.2840.114 350.1.13.10 4.2.7.2.686 [id number] [facility] 2022-01-06 07:57:00 2022-01-06 11:54:00 Emergency X MARCOS RAVI [facility] ERT [id number] [facility] 2022-01-06 07:57:00 2022-01-06 11:54:00 Emergency Marcos Ravi [facility] 1.2840.114 350.1.13.10 4.2.7.2.686 [id number] [facility] 2021-12-06 00:00:00 2021-12-06 00:00:00 Orders Only Doctor Unassigned, [place] [facility] 1.2.840.114 350.1.13.10 4.2.7.2.686 [id number] [facility] 2021-10-28 19:52:00 2021-10-29 00:59:00 Emergency X ARTURO LEOS, ARTURO [facility] ERT [id number] [facility] 2021-10-28 19:52:00 2021-10-29 00:59:00 Emergency Arturo Leos [facility] 1.2.840.114 350.1.13.10 4.2.7.2.686 [id number] [facility] 2018-03-23 15:20:00 2018-03-23 15:20:00 Appointmen t; PATRICE RAHMAN M.D. BILKIS, SAYEEDA, M.D. [facility] [id number] [place] [facility] 2017-10-20 15:00:00 2017-10-20 15:00:00 Appointmen t; PATRICE RAHMAN M.D. BILKIS, SAYEEDA, M.D. [facility] [id number] [place] [facility] 2017-07-13 11:00:00 2017-07-13 11:00:00 Appointmen t; PATRICE RAHMAN M.D. BILKIS, SAYEEDA, M.D. [facility] [id number] [place] [facility] 2016-11-21 16:00:00 2016-11-21 16:00:00 Appointmen t; PATRICE RAHMAN M.D. BILKIS, SAYEEDA, M.D. [facility] [id number] [place] [facility] 2016-10-01 09:00:00 2016-10-01 09:00:00 Appointmen t; PATRICE RAHMAN M.D. BILKIS, SAYEEDA, M.D. [facility] [id number] [place] [facility] Results Test Description Test Time Test Comments Results Result Co mments Source Erasto HopkinsTSH REFLEX TO FREE [id number] 00:00:00* Test Item Value Reference Range Interpretation Comme nts TSH REFLEX TO FREE T4 (test code = 2834) 0.895 UIU/ML Erasto HopkinsCOMPREHENSIVE METABOLIC [id number] 00:00:00* Test Item Value Reference Range Interpretation Comme nts GLUCOSE (test code = 2217) 126 MG/DL BUN (test code = 2208) 14 MG/DL CREATININE (test code = 2214) 0.92 MG/DL eGFR (2020 CKD-EPI) (test co de = 09907) 80 ML/MIN/1.73 CALC BUN/CREAT (test code = 2235) 15 RATIO SODIUM (test code = 2231) 135 MEQ/L POTASSIUM (test code = 2228) 4.2 MEQ/L CHLORIDE (test code = 2215) 102 MEQ/L CARBON DIOXIDE (test code = 2206) 23 MEQ/L CALCIUM (test code = 2209) 9.7 MG/DL PROTEIN, TOTAL (test code = 2229) 6.8 G/DL ALBUMIN (test code = 2201) 4.4 G/DL CALC GLOBULIN (test code = 2240) 2.4 G/DL CALC A/G RATIO (test code = 2234) 1.8 RATIO BILIRUBIN, TOTAL (test code = 2207) <0.2 MG/DL ALKALINE PHOSPHATASE (test code = 2204) 98 U/L AST (test code = 2218) 18 U/L ALT (test code = 2219) 19 U/L Erasto HopkinsLIPID [id number] 00:00:00* Test Item Value Reference Range Interpretation Comme nts CHOLESTEROL (test code = 2210) 229 MG/DL TRIGLYCERIDES (test code = 2232) 239 MG/DL HDL CHOLESTEROL (test code = 2220) 34 MG/DL CALC LDL CHOL (test code = 2237) 154 MG/DL RISK RATIO LDL/HDL (test cod e = 2238) 4.53 RATIO Erasto HopkinsHEMOGLOBIN [id number] 00:00:00* Test Item Value Reference Range Interpretation Comme nts HEMOGLOBIN A1c (test code = 72108) 5.8 % Erasto HopkinsTSH REFLEX TO FREE [id number] 00:00:00* Test Item Value Reference Range Interpretation Comme nts TSH REFLEX TO FREE T4 (test code = 2834) 0.895 UIU/ML Erasto HopkinsCOMPREHENSIVE METABOLIC [id number] 00:00:00* Test Item Value Reference Range Interpretation Comme nts GLUCOSE (test code = 2217) 126 MG/DL BUN (test code = 2208) 14 MG/DL CREATININE (test code = 2214) 0.92 MG/DL eGFR (2020 CKD-EPI) (test co de = 76703) 80 ML/MIN/1.73 CALC BUN/CREAT (test code = 2235) 15 RATIO SODIUM (test code = 2231) 135 MEQ/L POTASSIUM (test code = 2228) 4.2 MEQ/L CHLORIDE (test code = 2215) 102 MEQ/L CARBON DIOXIDE (test code = 2206) 23 MEQ/L CALCIUM (test code = 2209) 9.7 MG/DL PROTEIN, TOTAL (test code = 2229) 6.8 G/DL ALBUMIN (test code = 2201) 4.4 G/DL CALC GLOBULIN (test code = 2240) 2.4 G/DL CALC A/G RATIO (test code = 2234) 1.8 RATIO BILIRUBIN, TOTAL (test code = 2207) <0.2 MG/DL ALKALINE PHOSPHATASE (test code = 2204) 98 U/L AST (test code = 2218) 18 U/L ALT (test code = 2219) 19 U/L Erasto HopkinsLIPID [id number] 00:00:00* Test Item Value Reference Range Interpretation Comme nts CHOLESTEROL (test code = 2210) 229 MG/DL TRIGLYCERIDES (test code = 2232) 239 MG/DL HDL CHOLESTEROL (test code = 2220) 34 MG/DL CALC LDL CHOL (test code = 2237) 154 MG/DL RISK RATIO LDL/HDL (test cod e = 2238) 4.53 RATIO Erasto HopkinsHEMOGLOBIN [id number] 00:00:00* Test Item Value Reference Range Interpretation Comme nts HEMOGLOBIN A1c (test code = 50049) 5.8 % Erasto HopkinsTSH REFLEX TO FREE [id number] 00:00:00* Test Item Value Reference Range Interpretation Comme nts TSH REFLEX TO FREE T4 (test code = 2834) 0.895 UIU/ML Erasto HopkinsCOMPREHENSIVE METABOLIC [id number] 00:00:00* Test Item Value Reference Range Interpretation Comme nts GLUCOSE (test code = 2217) 126 MG/DL BUN (test code = 2208) 14 MG/DL CREATININE (test code = 2214) 0.92 MG/DL eGFR (2020 CKD-EPI) (test co de = 54748) 80 ML/MIN/1.73 CALC BUN/CREAT (test code = 2235) 15 RATIO SODIUM (test code = 2231) 135 MEQ/L POTASSIUM (test code = 2228) 4.2 MEQ/L CHLORIDE (test code = 2215) 102 MEQ/L CARBON DIOXIDE (test code = 2206) 23 MEQ/L CALCIUM (test code = 2209) 9.7 MG/DL PROTEIN, TOTAL (test code = 2229) 6.8 G/DL ALBUMIN (test code = 2201) 4.4 G/DL CALC GLOBULIN (test code = 2240) 2.4 G/DL CALC A/G RATIO (test code = 2234) 1.8 RATIO BILIRUBIN, TOTAL (test code = 2207) <0.2 MG/DL ALKALINE PHOSPHATASE (test code = 2204) 98 U/L AST (test code = 2218) 18 U/L ALT (test code = 2219) 19 U/L Erasto HopkinsLIPID [id number] 00:00:00* Test Item Value Reference Range Interpretation Comme nts CHOLESTEROL (test code = 2210) 229 MG/DL TRIGLYCERIDES (test code = 2232) 239 MG/DL HDL CHOLESTEROL (test code = 2220) 34 MG/DL CALC LDL CHOL (test code = 2237) 154 MG/DL RISK RATIO LDL/HDL (test cod e = 2238) 4.53 RATIO Erasto HopkinsHEMOGLOBIN [id number] 00:00:00* Test Item Value Reference Range Interpretation Comme nts HEMOGLOBIN A1c (test code = 96915) 5.8 % Erasto HopkinsTSH, THIRD [id number] 04:44:23* Test Item Value Reference Range Interpretation Comme nts TSH, THIRD GENERATION (test code = 2821) 0.235 UIU/ML 0.400-4.100 L UNLESS OTHERWISE INDICATED, ALL TESTING PERFORMED AT [facility] [address] [place] [id number] NO BAKE MOLDER: KAMILLE ZUNIGA M.D. IA NUMBER [id number] [facility] [place]. [id number] Transthoracic echo (TTE)[id number] 03:00:44* Test Item Value Reference Range Interpretation Comme nts Height (test code = 0390530397) 65 in Weight (test code = 6868734010) 223 lbs Systolic BP (test code = 9841285457) 121 mmHg Diastolic BP (test code = 1315861477) 79 mmHg Heart Rate (test code = 9791307613) 98 bpm EF(Teich) (test code = 9991742225) 66.40 % LVIDD (test code = 6499633476) 4.40 cm LVIDS (test code = 7017643095) 2.80 cm Left Ventricular End Systolic Volume by Teichholz Method (test code = 4823936) 29.4 mL Left Ventricular End Diastolic Volume by Teichholz Method (test code = 4188097) 87.7 mL IVS (test code = 1690073267) 1.10 cm LVPWD (test code = 9960672435) 1.00 cm LVOT diameter (test code = 2815562725) 1.87 cm LVOT area (test code = 5531806454) 2.70 cm2 FS (test code = 8828421890) 37 % LA size (test code = 2258105174) 3.9 cm RVOT Proximal Diameter (test code = 1642980323) 3.10 cm ACS (test code = 5936193381) 2.15 cm Ao root diam (test code = 4285572593) 2.90 cm Aortic root (test code = 8970754080) 2.9 cm Ao root annulus (test code = 3221485139) 2.9 cm PW (test code = 8836714923) 1.00 cm 0.6-1.1 EF - 2D (test code = 75290439) 66.40 % Interventricular Septum Diastolic Thickness by 2D (test code = 7461592) 1.10 cm BSA (test code = 1259500758) 2.07 m2 E wave decelartion time (test code = 2940819021) 0.23 s MV Peak E Sofia (test code = 9698207757) 94.4 cm/s MV Peak A Sofia (test code = 1879428412) 87.4 cm/s E/A ratio (test code = 4525506433) 1.08 ratio MV Prop V (test code = 8370411184) 89.60 cm/s LVOT stroke volume (test code = 7841491336) 75.60 cm3 LVOT peak sofia (test code = 3502226115) 151.9 cm/s LVOT mn grad (test code = 7231745707) 3.7 mmHg AV LVOT peak gradient (test code = 7612359008) 9.2 mmHg LVOT peak VTI (test code = 6928697471) 27.6 cm LV V1 mean (test code = 0886347272) 86.20 cm/s Aortic valve mean velocity (test code = 5780673318) 105.8 cm/s Ao peak sofia (test code = 6450049241) 182.5 cm/s Ao VTI (test code = 6679069732) 32.0 cm AV area by cont VTI (test code = 5729719114) 2.4 cm2 AV area peak sofia (test code = 2164787109) 2.3 cm2 Ao max PG (test code = 3703535999) 13.30 mm[Hg] AV peak gradient (test code = 4047375440) 13.3 mmHg AV valve area (test code = 2123095241) 2.36 cm2 AV mean gradient (test code = 3609695640) 5.6 mmHg Radiology Study observation (narrative) (test code = 37444-9) MELISSA (test code = MELISSA) ?Left?Ventricle: Left ventricle size is normal. Normal wall thickness. Normal wall motion. Normal systolic function with a visually estimated EF of 60 - 65%. There is impaired relaxation. ?Right?Ventricle: Right ventricle size is normal. Normal systolic function. ?Tricuspid?Valve: Trace transvalvular regurgitation. Insufficient tricuspid regurgitation jet to estimate RVSP . ?RA pressure is 0-5 mmHg. ?Pericardium: Trivial pericardial effusion present. ?Aorta: Borderline enlarged ascending aorta 3.1cm. Left VentricleLeft ventricle size is normal. Normal wall thickness. Normal wall motion. Normal systolic function with a visually estimated EF of 60 - 65%. There is impaired relaxation.Right VentricleRight ventricle size is normal. Normal systolic function.Left AtriumLeft atrium size is normal.Right AtriumRight atrium size is normal.Mitral ValveMitral valve structure is normal. Trace transvalvular regurgitation.Tricuspi d ValveTricuspid valve structure is grossly normal. Trace transvalvular regurgitation. Insufficient tricuspid regurgitation jet to estimate RVSP . RA pressure is 0-5 mmHg.Aortic ValveAortic valve opens well.Pulmonic ValvePulmonic valve is grossly normal in structure and function. Trace transvalvular regurgitation.Ascendin g AortaBorderline enlarged ascending aorta 3.1cm.PericardiumTrivi al pericardial effusion present.Study DetailsStudy quality was adequate. A complete echocardiogram was performed using 2D, color flow Doppler and spectral Doppler. The apical, parasternal, subcostal and suprasternal views were obtained. [facility], THIRD [id number] 00:00:00* Test Item Value Reference Range Interpretation Comme nts TSH, THIRD GENERATION (test code = 2821) 0.235 UIU/ML Erasto Mcdonnell, THIRD [id number] 00:00:00* Test Item Value Reference Range Interpretation Comme nts TSH, THIRD GENERATION (test code = 2821) 0.235 UIU/ML Erasto Mcdonnell, THIRD [id number] 00:00:00* Test Item Value Reference Range Interpretation Comme nts TSH, THIRD GENERATION (test code = 2821) 0.235 UIU/ML Erasto Mcdonnell THIRD [id number] 00:00:00* Test Item Value Reference Range Interpretation Comme nts TSH, THIRD GENERATION (test code = 2821) 0.235 UIU/ML Erasto Millard, THIRD [id number] 11:23:47* Test Item Value Reference Range Interpretation Comme nts TSH, THIRD GENERATION (test code = 2821) 19.100 UIU/ML 0.400-4.100 H UNLESS OTHERWISE INDICATED, ALL TESTING PERFORMED AT [facility] [address] [place] [address] NO BAKE MOLDER: KAMILLE ZUNIGA M.D. CLIA NUMBER [id number] [facility] [place]. [id number] LIPID [id number] 08:05:18* Test Item Value Reference Range Interpretation Comme nts CHOLESTEROL (test code = 2210) 221 MG/DL <200 H TRIGLYCERIDES (test code = 2232) 393 MG/DL <150 H HDL CHOLESTEROL (test code = 2220) 32 MG/DL >39 L CALC LDL CHOL (test code = 2237) 133 MG/DL <100 H NOTE: CALCULATED LDL IS BASED ON SOPHIE-UMANZOR METHOD WHICHINCLUDES ADJUSTABLE TRIGLYCERIDE:VLDL CHOLESTEROL RATIO.THIS FACTOR VARIES BY MEASURED TRIGLYCERIDE AND NON-HDLCHOLESTEROL CONCENTRATIONS WITH INCREASED CALCULATED LDL SEENIN HIGHER TRIGLYCERIDE OR LOWER NON-HDL SPECIMENS. FOR MOREINFORMATION, SEE CLIENT ANNOUNCEMENT AT [email or web address] RISK RATIO LDL/HDL (test code = 223) 4.16 RATIO <3.22 H COMPREHENSIVE METABOLIC [id number] 08:05:18* Test Item Value Reference Range Interpretation Comme nts GLUCOSE (test code = 2216) 111 MG/DL 70-99 H BUN (test code = 2207) 6 MG/DL 6-20 CREATININE (test code = 2213) 0.76 MG/DL 0.60-1.30 eGFR (2020 CKD-EPI) (test code = 72150) 101 ML/MIN/1.73 >60 CALC BUN/CREAT (test code = 2235) 8 RATIO 6-28 SODIUM (test code = 2230) 139 MEQ/L 133-146 POTASSIUM (test code = 222) 4.0 MEQ/L 3.5-5.4 CHLORIDE (test code = 2215) 103 MEQ/L 95-107 CARBON DIOXIDE (test code = 2205) 21 MEQ/L 19-31 CALCIUM (test code = 2208) 9.1 MG/DL 8.5-10.5 PROTEIN, TOTAL (test code = 2228) 6.4 G/DL 6.1-8.3 ALBUMIN (test code = 2200) 4.3 G/DL 3.5-5.2 CALC GLOBULIN (test code = 2240) 2.1 G/DL 1.9-3.7 CALC A/G RATIO (test code = 223) 2.0 RATIO 1.0-2.6 BILIRUBIN, TOTAL (test code = 2206) 0.2 MG/DL <=1.2 ALKALINE PHOSPHATASE (test code = 2203) 113 U/L 40-113 AST (test code = 2217) 26 U/L 9-40 ALT (test code = 2219) 32 U/L 5-40 HEMOGLOBIN [id number] 02:49:38* Test Item Value Reference Range Interpretation Comme nts HEMOGLOBIN A1c (test code = 01815) 6.3 % 4.2-5.6 H [employer] GUIDELINES FOR HGB A1C: PREDIABETES/INCREASED RISK . . . . . . . 5.7-6.4% DIAGNOSIS OF DIABETES . . . . . . . . . >=6.5% WITH CONFIRMATION OR APPROPRIATE SYMPTOMS NOTE: ASSAY MAY BE AFFECTED BY HEMOGLOBINOPATHIES (SICKLE CELL ANEMIA, S-C DISEASE, OTHERS) OR ARTIFICIALLY LOWERED BY DECREASED RED CELL SURVIVAL (HEMOLYTIC ANEMIAS, BLOOD LOSS, ETC.). CONSIDER ALTERNATE TESTING OR LABORATORY CONSULTATION. CBC W/AUTO DIFF WITH [id number] 01:46:02* Test Item Value Reference Range Interpretation Comme nts WBC (test code = 1001) 9.3 K/UL 3.5-11.0 RBC (test code = 1002) 4.20 M/UL 3.80-5.40 HEMOGLOBIN (test code = 1003) 15.3 G/DL 11.5-15.5 HEMATOCRIT (test code = 1004) 44.0 % 34.0-45.0 MCV (test code = 1005) 104.8 fL 80.0-99.0 H MCH (test code = 1006) 36.4 PG 25.0-33.0 H MCHC (test code = 1007) 34.8 G/DL 31.0-36.0 RDW (test code = 1038) 12.0 % 11.5-15.0 NEUTROPHILS (test code = 1008) 56.0 % LYMPHOCYTES (test code = 1010) 35.9 % MONOCYTES (test code = 1011) 5.4 % EOSINOPHILS (test code = 1012) 1.8 % BASOPHILS (test code = 1013) 0.6 % IMMATURE GRANULOCYTES (test code = 1036) 0.3 % NUCLEATED RBCS (test code = 1065) 0.0 /100 WBC'S See_Comment [Automated [employer] ge] The system which generated this result transmitted reference range: 0.0. The reference range was not used to interpret this result as normal/abnormal. PLATELET COUNT (test code = 1015) 262 K/UL 130-400 ABSOLUTE NEUTROPHILS (test code = 1066) 5.18 K/UL 1.50-7.50 ABSOLUTE LYMPHOCYTES (test code = 1067) 3.32 K/UL 1.00-4.00 ABSOLUTE MONOCYTES (test code = 1068) 0.50 K/UL 0.20-1.00 ABSOLUTE EOSINOPHILS (test code = 1040) 0.17 K/UL 0.00-0.50 ABSOLUTE BASOPHILS (test code = 1069) 0.06 K/UL 0.00-0.20 ABS IMMATURE GRANULOCYTES (test code = 1020) 0.03 K/UL 0.00-0.10 ABS NUCLEATED RBCS (test code = 87246) 0.00 K/UL 0.00-0.11 CBC W/AUTO [id number] 00:00:00* Test Item Value Reference Range Interpretation Comme nts WBC (test code = 1001) 9.3 K/UL RBC (test code = 1002) 4.20 M/UL HEMOGLOBIN (test code = 1003) 15.3 G/DL HEMATOCRIT (test code = 1004) 44.0 % MCV (test code = 1005) 104.8 fL MCH (test code = 1006) 36.4 PG MCHC (test code = 1007) 34.8 G/DL RDW (test code = 1038) 12.0 % NEUTROPHILS (test code = 1008) 56.0 % LYMPHOCYTES (test code = 1010) 35.9 % MONOCYTES (test code = 1011) 5.4 % EOSINOPHILS (test code = 1012) 1.8 % BASOPHILS (test code = 1013) 0.6 % IMMATURE GRANULOCYTES (test code = 1036) 0.3 % NUCLEATED RBCS (test code = 1065) 0.0 /100WBC'S PLATELET COUNT (test code = 1015) 262 K/UL ABSOLUTE NEUTROPHILS (test c ode = 1066) 5.18 K/UL ABSOLUTE LYMPHOCYTES (test c ode = 1067) 3.32 K/UL ABSOLUTE MONOCYTES (test cod e = 1068) 0.50 K/UL ABSOLUTE EOSINOPHILS (test c ode = 1040) 0.17 K/UL ABSOLUTE BASOPHILS (test cod e = 1069) 0.06 K/UL ABS IMMATURE GRANULOCYTES (t est code = 1020) 0.03 K/UL ABS NUCLEATED RBCS (test cod e = 49783) 0.00 K/UL Erasto HopkinsHEMOGLOBIN [id number] 00:00:00* Test Item Value Reference Range Interpretation Comme terry HEMOGLOBIN A1c (test code = 15840) 6.3 % Erasto HopkinsLIPID [id number] 00:00:00* Test Item Value Reference Range Interpretation Comme nts CHOLESTEROL (test code = 2210) 221 MG/DL TRIGLYCERIDES (test code = 2232) 393 MG/DL HDL CHOLESTEROL (test code = 2220) 32 MG/DL CALC LDL CHOL (test code = 2237) 133 MG/DL RISK RATIO LDL/HDL (test cod e = 2238) 4.16 RATIO Erasto HopkinsCOMPREHENSIVE METABOLIC [id number] 00:00:00* Test Item Value Reference Range Interpretation Comme nts GLUCOSE (test code = 2217) 111 MG/DL BUN (test code = 2208) 6 MG/DL CREATININE (test code = 2214) 0.76 MG/DL eGFR (2020 CKD-EPI) (test code = 12864) 101 ML/MIN/1.73 CALC BUN/CREAT (test code = 2235) 8 RATIO SODIUM (test code = 2231) 139 MEQ/L POTASSIUM (test code = 2228) 4.0 MEQ/L CHLORIDE (test code = 2215) 103 MEQ/L CARBON DIOXIDE (test code = 2206) 21 MEQ/L CALCIUM (test code = 2209) 9.1 MG/DL PROTEIN, TOTAL (test code = 2229) 6.4 G/DL ALBUMIN (test code = 2201) 4.3 G/DL CALC GLOBULIN (test code = 2240) 2.1 G/DL CALC A/G RATIO (test code = 2234) 2.0 RATIO BILIRUBIN, TOTAL (test code = 2207) 0.2 MG/DL ALKALINE PHOSPHATASE (test code = 2204) 113 U/L AST (test code = 2218) 26 U/L ALT (test code = 2219) 32 U/L Erasto HopkinsTSH, THIRD [id number] 00:00:00* Test Item Value Reference Range Interpretation Comme nts TSH, THIRD GENERATION (test code = 2821) 19.100 UIU/ML Erasto HopkinsCBC W/AUTO [id number] 00:00:00* Test Item Value Reference Range Interpretation Comme nts WBC (test code = 1001) 9.3 K/UL RBC (test code = 1002) 4.20 M/UL HEMOGLOBIN (test code = 1003) 15.3 G/DL HEMATOCRIT (test code = 1004) 44.0 % MCV (test code = 1005) 104.8 fL MCH (test code = 1006) 36.4 PG MCHC (test code = 1007) 34.8 G/DL RDW (test code = 1038) 12.0 % NEUTROPHILS (test code = 1008) 56.0 % LYMPHOCYTES (test code = 1010) 35.9 % MONOCYTES (test code = 1011) 5.4 % EOSINOPHILS (test code = 1012) 1.8 % BASOPHILS (test code = 1013) 0.6 % IMMATURE GRANULOCYTES (test code = 1036) 0.3 % NUCLEATED RBCS (test code = 1065) 0.0 /100WBC'S PLATELET COUNT (test code = 1015) 262 K/UL ABSOLUTE NEUTROPHILS (test c ode = 1066) 5.18 K/UL ABSOLUTE LYMPHOCYTES (test c ode = 1067) 3.32 K/UL ABSOLUTE MONOCYTES (test cod e = 1068) 0.50 K/UL ABSOLUTE EOSINOPHILS (test c ode = 1040) 0.17 K/UL ABSOLUTE BASOPHILS (test cod e = 1069) 0.06 K/UL ABS IMMATURE GRANULOCYTES (t est code = 1020) 0.03 K/UL ABS NUCLEATED RBCS (test cod e = 49066) 0.00 K/UL Erasto HopkinsHEMOGLOBIN [id number] 00:00:00* Test Item Value Reference Range Interpretation Comme nts HEMOGLOBIN A1c (test code = 81387) 6.3 % Erasto Hinds AustinLIPID [id number] 00:00:00* Test Item Value Reference Range Interpretation Comme nts CHOLESTEROL (test code = 2210) 221 MG/DL TRIGLYCERIDES (test code = 2232) 393 MG/DL HDL CHOLESTEROL (test code = 2220) 32 MG/DL CALC LDL CHOL (test code = 2237) 133 MG/DL RISK RATIO LDL/HDL (test cod e = 2238) 4.16 RATIO Erasto Hinds SandeepCOMPREHENSIVE METABOLIC [id number] 00:00:00* Test Item Value Reference Range Interpretation Comme nts GLUCOSE (test code = 2217) 111 MG/DL BUN (test code = 2208) 6 MG/DL CREATININE (test code = 2214) 0.76 MG/DL eGFR (2020 CKD-EPI) (test code = 09206) 101 ML/MIN/1.73 CALC BUN/CREAT (test code = 2235) 8 RATIO SODIUM (test code = 2231) 139 MEQ/L POTASSIUM (test code = 2228) 4.0 MEQ/L CHLORIDE (test code = 2215) 103 MEQ/L CARBON DIOXIDE (test code = 2206) 21 MEQ/L CALCIUM (test code = 2209) 9.1 MG/DL PROTEIN, TOTAL (test code = 222) 6.4 G/DL ALBUMIN (test code = 220) 4.3 G/DL CALC GLOBULIN (test code = 2240) 2.1 G/DL CALC A/G RATIO (test code = 2234) 2.0 RATIO BILIRUBIN, TOTAL (test code = 7) 0.2 MG/DL ALKALINE PHOSPHATASE (test code = 2203) 113 U/L AST (test code = 2218) 26 U/L ALT (test code = 2219) 32 U/L Erasto HopkinsTSH, THIRD [id number] 00:00:00* Test Item Value Reference Range Interpretation Comme [facility] TSH, THIRD GENERATION (test code = 2821) 19.100 UIU/ML Erasto HopkinsCBC W/AUTO [id number] 00:00:00* Test Item Value Reference Range Interpretation Comme [facility] WBC (test code = 1001) 9.3 K/UL RBC (test code = 1002) 4.20 M/UL HEMOGLOBIN (test code = 1003) 15.3 G/DL HEMATOCRIT (test code = 1004) 44.0 % MCV (test code = 1005) 104.8 fL MCH (test code = 1006) 36.4 PG MCHC (test code = 1007) 34.8 G/DL RDW (test code = 1038) 12.0 % NEUTROPHILS (test code = 1008) 56.0 % LYMPHOCYTES (test code = 1010) 35.9 % MONOCYTES (test code = 1011) 5.4 % EOSINOPHILS (test code = 1012) 1.8 % BASOPHILS (test code = 1013) 0.6 % IMMATURE GRANULOCYTES (test code = 1036) 0.3 % NUCLEATED RBCS (test code = 1065) 0.0 /100WBC'S PLATELET COUNT (test code = 1015) 262 K/UL ABSOLUTE NEUTROPHILS (test c ode = 1066) 5.18 K/UL ABSOLUTE LYMPHOCYTES (test c ode = 1067) 3.32 K/UL ABSOLUTE MONOCYTES (test cod e = 1068) 0.50 K/UL ABSOLUTE EOSINOPHILS (test c ode = 1040) 0.17 K/UL ABSOLUTE BASOPHILS (test cod e = 1069) 0.06 K/UL ABS IMMATURE GRANULOCYTES (t est code = 1020) 0.03 K/UL ABS NUCLEATED RBCS (test cod e = 88533) 0.00 K/UL Erasto HopkinsHEMOGLOBIN [id number] 00:00:00* Test Item Value Reference Range Interpretation Comme nts HEMOGLOBIN A1c (test code = 57544) 6.3 % Erasto HopkinsLIPID [id number] 00:00:00* Test Item Value Reference Range Interpretation Comme nts CHOLESTEROL (test code = 2210) 221 MG/DL TRIGLYCERIDES (test code = 2232) 393 MG/DL HDL CHOLESTEROL (test code = 2220) 32 MG/DL CALC LDL CHOL (test code = 2237) 133 MG/DL RISK RATIO LDL/HDL (test cod e = 2238) 4.16 RATIO Erasto HopkinsCOMPREHENSIVE METABOLIC [id number] 00:00:00* Test Item Value Reference Range Interpretation Comme nts GLUCOSE (test code = 2217) 111 MG/DL BUN (test code = 2208) 6 MG/DL CREATININE (test code = 2214) 0.76 MG/DL eGFR (2020 CKD-EPI) (test code = 51189) 101 ML/MIN/1.73 CALC BUN/CREAT (test code = 2235) 8 RATIO SODIUM (test code = 2231) 139 MEQ/L POTASSIUM (test code = 2228) 4.0 MEQ/L CHLORIDE (test code = 2215) 103 MEQ/L CARBON DIOXIDE (test code = 2206) 21 MEQ/L CALCIUM (test code = 2209) 9.1 MG/DL PROTEIN, TOTAL (test code = 2229) 6.4 G/DL ALBUMIN (test code = 2201) 4.3 G/DL CALC GLOBULIN (test code = 2240) 2.1 G/DL CALC A/G RATIO (test code = 2234) 2.0 RATIO BILIRUBIN, TOTAL (test code = 2207) 0.2 MG/DL ALKALINE PHOSPHATASE (test code = 2204) 113 U/L AST (test code = 2218) 26 U/L ALT (test code = 2219) 32 U/L Erasto HopkinsTSH, THIRD [id number] 00:00:00* Test Item Value Reference Range Interpretation Comme nts TSH, THIRD GENERATION (test code = 2821) 19.100 UIU/ML Erasto HopkinsCBC W/AUTO [id number] 00:00:00* Test Item Value Reference Range Interpretation Comme nts WBC (test code = 1001) 9.3 K/UL RBC (test code = 1002) 4.20 M/UL HEMOGLOBIN (test code = 1003) 15.3 G/DL HEMATOCRIT (test code = 1004) 44.0 % MCV (test code = 1005) 104.8 fL MCH (test code = 1006) 36.4 PG MCHC (test code = 1007) 34.8 G/DL RDW (test code = 1038) 12.0 % NEUTROPHILS (test code = 1008) 56.0 % LYMPHOCYTES (test code = 1010) 35.9 % MONOCYTES (test code = 1011) 5.4 % EOSINOPHILS (test code = 1012) 1.8 % BASOPHILS (test code = 1013) 0.6 % IMMATURE GRANULOCYTES (test code = 1036) 0.3 % NUCLEATED RBCS (test code = 1065) 0.0 /100WBC'S PLATELET COUNT (test code = 1015) 262 K/UL ABSOLUTE NEUTROPHILS (test c ode = 1066) 5.18 K/UL ABSOLUTE LYMPHOCYTES (test c ode = 1067) 3.32 K/UL ABSOLUTE MONOCYTES (test cod e = 1068) 0.50 K/UL ABSOLUTE EOSINOPHILS (test c ode = 1040) 0.17 K/UL ABSOLUTE BASOPHILS (test cod e = 1069) 0.06 K/UL ABS IMMATURE GRANULOCYTES (t est code = 1020) 0.03 K/UL ABS NUCLEATED RBCS (test cod e = 91188) 0.00 K/UL Erasto HopkinsHEMOGLOBIN [id number] 00:00:00* Test Item Value Reference Range Interpretation Comme nts HEMOGLOBIN A1c (test code = 28014) 6.3 % Erasto HopkinsLIPID [id number] 00:00:00* Test Item Value Reference Range Interpretation Comme nts CHOLESTEROL (test code = 2210) 221 MG/DL TRIGLYCERIDES (test code = 2232) 393 MG/DL HDL CHOLESTEROL (test code = 2220) 32 MG/DL CALC LDL CHOL (test code = 2237) 133 MG/DL RISK RATIO LDL/HDL (test cod e = 2238) 4.16 RATIO Erasto HopkinsCOMPREHENSIVE METABOLIC [id number] 00:00:00* Test Item Value Reference Range Interpretation Comme nts GLUCOSE (test code = 2217) 111 MG/DL BUN (test code = 2208) 6 MG/DL CREATININE (test code = 2214) 0.76 MG/DL eGFR (2020 CKD-EPI) (test code = 61256) 101 ML/MIN/1.73 CALC BUN/CREAT (test code = 2235) 8 RATIO SODIUM (test code = 2231) 139 MEQ/L POTASSIUM (test code = 2228) 4.0 MEQ/L CHLORIDE (test code = 2215) 103 MEQ/L CARBON DIOXIDE (test code = 2206) 21 MEQ/L CALCIUM (test code = 2209) 9.1 MG/DL PROTEIN, TOTAL (test code = 2229) 6.4 G/DL ALBUMIN (test code = 2201) 4.3 G/DL CALC GLOBULIN (test code = 2240) 2.1 G/DL CALC A/G RATIO (test code = 2234) 2.0 RATIO BILIRUBIN, TOTAL (test code = 2207) 0.2 MG/DL ALKALINE PHOSPHATASE (test code = 2204) 113 U/L AST (test code = 2218) 26 U/L ALT (test code = 2219) 32 U/L Erasto HopkinsTSH, THIRD [id number] 00:00:00* Test Item Value Reference Range Interpretation Comme nts TSH, THIRD GENERATION (test code = 2821) 19.100 UIU/ML Erasto HopkinsCBC W/AUTO [id number] 00:00:00* Test Item Value Reference Range Interpretation Comme nts WBC (test code = 1001) 9.3 K/UL RBC (test code = 1002) 4.20 M/UL HEMOGLOBIN (test code = 1003) 15.3 G/DL HEMATOCRIT (test code = 1004) 44.0 % MCV (test code = 1005) 104.8 fL MCH (test code = 1006) 36.4 PG MCHC (test code = 1007) 34.8 G/DL RDW (test code = 1038) 12.0 % NEUTROPHILS (test code = 1008) 56.0 % LYMPHOCYTES (test code = 1010) 35.9 % MONOCYTES (test code = 1011) 5.4 % EOSINOPHILS (test code = 1012) 1.8 % BASOPHILS (test code = 1013) 0.6 % IMMATURE GRANULOCYTES (test code = 1036) 0.3 % NUCLEATED RBCS (test code = 1065) 0.0 /100WBC'S PLATELET COUNT (test code = 1015) 262 K/UL ABSOLUTE NEUTROPHILS (test c ode = 1066) 5.18 K/UL ABSOLUTE LYMPHOCYTES (test c ode = 1067) 3.32 K/UL ABSOLUTE MONOCYTES (test cod e = 1068) 0.50 K/UL ABSOLUTE EOSINOPHILS (test c ode = 1040) 0.17 K/UL ABSOLUTE BASOPHILS (test cod e = 1069) 0.06 K/UL ABS IMMATURE GRANULOCYTES (t est code = 1020) 0.03 K/UL ABS NUCLEATED RBCS (test cod e = 53061) 0.00 K/UL Erasto HopkinsHEMOGLOBIN [id number] 00:00:00* Test Item Value Reference Range Interpretation Comme nts HEMOGLOBIN A1c (test code = 78872) 6.3 % Erasto HopkinsLIPID [id number] 00:00:00* Test Item Value Reference Range Interpretation Comme nts CHOLESTEROL (test code = 2210) 221 MG/DL TRIGLYCERIDES (test code = 2232) 393 MG/DL HDL CHOLESTEROL (test code = 2220) 32 MG/DL CALC LDL CHOL (test code = 2237) 133 MG/DL RISK RATIO LDL/HDL (test cod e = 2238) 4.16 RATIO Erasto HopkinsCOMPREHENSIVE METABOLIC [id number] 00:00:00* Test Item Value Reference Range Interpretation Comme nts GLUCOSE (test code = 2217) 111 MG/DL BUN (test code = 2208) 6 MG/DL CREATININE (test code = 4) 0.76 MG/DL eGFR (2020 CKD-EPI) (test code = 48132) 101 ML/MIN/1.73 CALC BUN/CREAT (test code = 5) 8 RATIO SODIUM (test code = 223) 139 MEQ/L POTASSIUM (test code = 2228) 4.0 MEQ/L CHLORIDE (test code = 2215) 103 MEQ/L CARBON DIOXIDE (test code = 2205) 21 MEQ/L CALCIUM (test code = 2209) 9.1 MG/DL PROTEIN, TOTAL (test code = 2228) 6.4 G/DL ALBUMIN (test code = 2200) 4.3 G/DL CALC GLOBULIN (test code = 2240) 2.1 G/DL CALC A/G RATIO (test code = 2233) 2.0 RATIO BILIRUBIN, TOTAL (test code = 2206) 0.2 MG/DL ALKALINE PHOSPHATASE (test code = 2203) 113 U/L AST (test code = 2217) 26 U/L ALT (test code = 9) 32 U/L [facility] HopkinsKL[facility]IT[facility], THIRD [id number] 00:00:00* Test Item Value Reference Range Interpretation Comme nts TSH, THIRD GENERATION (test code = 2821) 19.100 UIU/ML [facility] [id number] 01:48:58* Test Item Value Reference Range Interpretation Comme nts WBC (test code = 6690-2) 15.75 See_Comment H [Automated message] The system which generated this result transmitted reference range: 4.30 - 11.10 10*3/?L. The reference range was not used to interpret this result as normal/abnormal. RBC (test code = 789-8) 3.83 See_Comment L [Automated message] The system which generated this result transmitted reference range: 3.93 - 5.25 10*6/?L. The reference range was not used to interpret this result as normal/abnormal. HGB (test code = 718-7) 14.0 g/dL 11.6-15.0 HCT (test code = 4544-3) 40.4 % 35.7-45.2 MCV (test code = 787-2) 105.5 fL 80.6-95.5 H MCH (test code = 785-6) 36.6 pg 25.9-32.8 H MCHC (test code = 786-4) 34.7 g/dL 31.6-35.1 RDW-SD (test code = 11299-8) 51.9 fL 39.0-49.9 H RDW-CV (test code = 788-0) 13.3 % 12.0-15.5 PLT (test code = 777-3) 276 See_Comment [Automated message] The system which generated this result transmitted reference range: 166 - 358 10*3/?L. The reference range was not used to interpret this result as normal/abnormal. MPV (test code = 82797-9) 9.6 fL 9.5-12.9 NRBC/100 WBC (test code = 5252818297) 0.1 See_Comment [Automated message] The system which generated this result transmitted reference range: 0.0 - 10.0 /100 WBCs. The reference range was not used to interpret this result as normal/abnormal. NRBC x10^3 (test code = 9308829524) 0.02 See_Comment [Automated message] The system which generated this result transmitted reference range: 10*3/?L. The reference range was not used to interpret this result as normal/abnormal. SEG % (test code = 03746-3) 65 % 33-76 BAND % (test code = 81075-9) 3 % 0-1 H LYMPH % (test code = 09068-3) 25 % 14-54 REACT LYMPH % (test code = 6153393400) 1 % LG GRAN LYMPH % (test code = 57008-3) 2 % <=0 H MONO % (test code = 80370-2) 4 % 0-4 ANC (test code = 753-4) 10.71 10*3/uL 1.88-7.09 H SPHEROCYTES (test code = 802-9) 1+ A Lab Interpretation (test code = 63784-0) [facility]normal [facility] [id number] 01:17:59* Test Item Value Reference Range Interpretation Comme nts TROPONIN I (test code = 6450096600) 0.003 ng/mL <=0.034 MELISSA (test code = MELISSA) Reference (Normal) Range (defined by the 99th percentile reference limit): <= 0.034 ng/mL Note: Cardiac troponin begins to rise 3-4 hours after the onset of ischemia. Repeat in 4-6 hours if the sample was drawn within 3-4 hours of the onset of the symptom and found normal. Diagnosis of myocardial injury is made with acute changes in cTn concentrations with at least one serial sample above the 99th percentile upper reference limit (URL), taken together with the patient's clinical presentation. Biotin has been reported to cause a negative bias, interpret results relative to patient's use of biotin. Lab Interpretation (test code = 05874-0) Normal [facility] ANI-[id number] 01:16:59* Test Item Value Reference Range Interpretation Comme nts NT-proBNP (test code = 70269-3) 165 pg/mL <=125 MELISSA (test code = MELISSA) Result Indeterminate-Consid er causes of NT-proBNP elevation other than Heart failure such as acute coronary syndrome, pulmonary embolism, pulmonary hypertension, sepsis, stroke, and renal dysfunction. Lab Interpretation (test code = 24557-0) Abnormal [facility] (63998) (ALB,T.PRO,BILI T,BU/BC,ALT,AST,ALK PHOS)2023-03-21 01:07:35* Test Item Value Reference Range Interpretation Comme nts TOTAL BILI (test code = 2179721827) 0.4 mg/dL 0.1-1.1 BILI UNCON (test code = 9810160641) 0.2 mg/dL 0.1-1.1 BILI CONJ (test code = 2307745394) 0.0 mg/dL 0.0-0.3 T PROTEIN (test code = 7142343338) 6.1 g/dL 6.3-8.2 L ALBUMIN (test code = 5457745742) 3.5 g/dL 3.5-5.0 ALK PHOS (test code = 9743572223) 103 U/L 34-122 ALTv (test code = 1742-6) 30 U/L 5-35 AST(SGOT) (test code = 6555381402) 23 U/L 13-40 Lab Interpretation (test cod e = 82911-9) Abnormal [facility]OLIC PAN[facility] (NA, K, CL, CO2, GLUCOSE, BUN, CREATININE, CA)2023-03-21 01:06:55* Test Item Value Reference Range Interpretation Comme nts NA (test code = 7694227291) 139 mmol/L 135-145 K (test code = 1697644803) 3.2 mmol/L 3.5-5.0 L CL (test code = 6851590713) 102 mmol/L 98-108 CO2 TOTAL (test code = 3998323522) 29 mmol/L 23-31 AGAP (test code = 7069650274) 8 2-16 BUN (test code = 8519090930) 16 mg/dL 7-23 GLUCOSE (test code = 6798045727) 147 mg/dL 70-110 H CREATININE (test code = 4067320388) 1.15 mg/dL 0.50-1.04 H CALCIUM (test code = 2916784066) 8.4 mg/dL 8.6-10.6 L eGFR (test code = 8990418985) 52.3 mL/min/1.73m2 MELISSA (test code = MELISSA) Association of [...] or abnormalities in imaging tests). Lab Interpretation (test code = 03273-6) Abnormal [facility]PO[facility] [id number] 00:28:00* Test Item Value Reference Range Interpretation Comme nts POCT PREG (test code = 1605) Negative On board controls acceptable with C Line (test code = 3574) Yes POCT PREG LOT # (test code = 3575) [id number] POCT PREG TEST DATE ( test code = 3576) 08/09/2024 Lab Interpretation (test cod e = 47433-0) Normal [facility] WITH [id number] 09:44:18* Test Item Value Reference Range Interpretation Comme nts WBC (test code = 6690-2) See_Comment H [Automated message] The system which generated this result transmitted reference range: 4.30 - 11.10 10*3/?L. The reference range was not used to interpret this result as normal/abnormal. RBC (test code = 789-8) See_Comment L [Automated message] The system which generated this result transmitted reference range: 3.93 - 5.25 10*6/?L. The reference range was not used to interpret this result as normal/abnormal. HGB (test code = 718-7) 12.3 g/dL 11.6-15.0 HCT (test code = 4544-3) 35.1 % 35.7-45.2 L MCV (test code = 787-2) 103.8 fL 80.6-95.5 H MCH (test code = 785-6) 36.4 pg 25.9-32.8 H MCHC (test code = 786-4) 35.0 g/dL 31.6-35.1 RDW-SD (test code = 97903-0) 47.9 fL 39.0-49.9 RDW-CV (test code = 788-0) 12.7 % 12.0-15.5 PLT (test code = 777-3) See_Comment [Automated message] The system which generated this result transmitted reference range: 166 - 358 10*3/?L. The reference range was not used to interpret this result as normal/abnormal. MPV (test code = 42723-2) 9.2 fL 9.5-12.9 L NRBC/100 WBC (test code = 2783540580) See_Comment [Automated message] The system which generated this result transmitted reference range: 0.0 - 10.0 /100 WBCs. The reference range was not used to interpret this result as normal/abnormal. NRBC x10^3 (test code = 3112079725) See_Comment [Automated message] The system which generated this result transmitted reference range: 10*3/?L. The reference range was not used to interpret this result as normal/abnormal. GRAN MAT (NEUT) % (test code = 770-8) 84.5 % IMM GRAN % (test code = 1854917818) 0.40 % LYMPH % (test code = 736-9) 9.0 % MONO % (test code = 5905-5) 5.8 % EOS % (test code = 713-8) 0.2 % BASO % (test code = 706-2) 0.1 % GRAN MAT x10^3(ANC) (test code = 3069280340) 15.40 10*3/uL 1.88-7.09 H IMM GRAN x10^3 (test code = 1468817105) 0.08 10*3/uL 0.00-0.06 H LYMPH x10^3 (test code = 731-0) 1.65 10*3/uL 1.32-3.29 MONO x10^3 (test code = 742-7) 1.06 10*3/uL 0.33-0.92 H EOS x10^3 (test code = 711-2) 0.03 10*3/uL 0.03-0.39 BASO x10^3 (test code = 704-7) 0.01-0.07 Lab Interpretation (test code = 45340-4) Abnormal [facility] WITH [id number] 09:44:18* Test Item Value Reference Range Interpretation Comme nts WBC (test code = 6690-2) See_Comment H [Automated message] The system which generated this result transmitted reference range: 4.30 - 11.10 10*3/?L. The reference range was not used to interpret this result as normal/abnormal. RBC (test code = 789-8) See_Comment L [Automated message] The system which generated this result transmitted reference range: 3.93 - 5.25 10*6/?L. The reference range was not used to interpret this result as normal/abnormal. HGB (test code = 718-7) 12.3 g/dL 11.6-15.0 HCT (test code = 4544-3) 35.1 % 35.7-45.2 L MCV (test code = 787-2) 103.8 fL 80.6-95.5 H MCH (test code = 785-6) 36.4 pg 25.9-32.8 H MCHC (test code = 786-4) 35.0 g/dL 31.6-35.1 RDW-SD (test code = 19844-2) 47.9 fL 39.0-49.9 RDW-CV (test code = 788-0) 12.7 % 12.0-15.5 PLT (test code = 777-3) See_Comment [Automated message] The system which generated this result transmitted reference range: 166 - 358 10*3/?L. The reference range was not used to interpret this result as normal/abnormal. MPV (test code = 21882-4) 9.2 fL 9.5-12.9 L NRBC/100 WBC (test code = 9795817146) See_Comment [Automated message] The system which generated this result transmitted reference range: 0.0 - 10.0 /100 WBCs. The reference range was not used to interpret this result as normal/abnormal. NRBC x10^3 (test code = 8985980702) See_Comment [Automated message] The system which generated this result transmitted reference range: 10*3/?L. The reference range was not used to interpret this result as normal/abnormal. GRAN MAT (NEUT) % (test code = 770-8) 84.5 % IMM GRAN % (test code = 7070838780) 0.40 % LYMPH % (test code = 736-9) 9.0 % MONO % (test code = 5905-5) 5.8 % EOS % (test code = 713-8) 0.2 % BASO % (test code = 706-2) 0.1 % GRAN MAT x10^3(ANC) (test code = 3325216525) 15.40 10*3/uL 1.88-7.09 H IMM GRAN x10^3 (test code = 2051800563) 0.08 10*3/uL 0.00-0.06 H LYMPH x10^3 (test code = 731-0) 1.65 10*3/uL 1.32-3.29 MONO x10^3 (test code = 742-7) 1.06 10*3/uL 0.33-0.92 H EOS x10^3 (test code = 711-2) 0.03 10*3/uL 0.03-0.39 BASO x10^3 (test code = 704-7) 0.01-0.07 Lab Interpretation (test code = 79404-7) Abnormal [facility] METABOLIC PANEL (NA, K, CL, CO2, GLUCOSE, BUN, CREATININE, CA)2022-07-12 09:32:34* Test Item Value Reference Range Interpretation Comme nts NA (test code = 2050633685) 137 mmol/L 135-145 K (test code = 7665095785) 4.2 mmol/L 3.5-5.0 CL (test code = 6926755938) 110 mmol/L 98-108 H CO2 TOTAL (test code = 5080807497) 26 mmol/L 23-31 AGAP (test code = 8746562102) 2-16 L BUN (test code = 4457698479) 10 mg/dL 7-23 GLUCOSE (test code = 8588483020) 143 mg/dL 70-110 H CREATININE (test code = 4435126996) 0.67 mg/dL 0.50-1.04 CALCIUM (test code = 9370280383) 8.5 mg/dL 8.6-10.6 L eGFR (test code = 0630704789) mL/min/1.73m2 MELISSA (test code = MELISSA) Association of [...] or abnormalities in imaging tests). Lab Interpretation (test code = 12116-0) Abnormal [facility] METABOLIC PANEL (NA, K, CL, CO2, GLUCOSE, BUN, CREATININE, CA)2022-07-12 09:32:34* Test Item Value Reference Range Interpretation Comme nts NA (test code = 2278414039) 137 mmol/L 135-145 K (test code = 0504110058) 4.2 mmol/L 3.5-5.0 CL (test code = 5715269469) 110 mmol/L 98-108 H CO2 TOTAL (test code = 0943864131) 26 mmol/L 23-31 AGAP (test code = 6873946280) 2-16 L BUN (test code = 1154406917) 10 mg/dL 7-23 GLUCOSE (test code = 1752174854) 143 mg/dL 70-110 H CREATININE (test code = 8753265180) 0.67 mg/dL 0.50-1.04 CALCIUM (test code = 0097507588) 8.5 mg/dL 8.6-10.6 L eGFR (test code = 6489331174) mL/min/1.73m2 MELISSA (test code = MELISSA) Association of [...] or abnormalities in imaging tests). Lab Interpretation (test code = 08507-6) Abnormal [facility], [id number] 23:53:52* Test Item Value Reference Range Interpretation Comme nts PREG SERUM (test code = 4442076466) Negative MELISSA (test code = MELISSA) Less than 10 IU/L. ?If low titer or ectopic is suspected, resubmit specimen in 48-72 hours. [facility] TEST, [id number] 23:53:52* Test Item Value Reference Range Interpretation Comme nts PREG SERUM (test code = 4876868895) Negative MELISSA (test code = MELISSA) Less than 10 IU/L. ?If low titer or ectopic is suspected, resubmit specimen in 48-72 hours. [facility] HospitalType and Screen - ONCE [id number] 13:50:24* Test Item Value Reference Range Interpretation Comme nts ABO & RH (test code = 20) A Positive Performed at [facility] Laboratory Services - [facility] Blood [address]Toll Free: [phone] No. [id number] IAT (test code = 1185) Negative Performed at [facility] Laboratory Services - [facility] Blood [address]Toll Free: [phone] No. [id number] [facility]Type [facility] Screen - ONCE [id number] 13:50:24* Test Item Value Reference Range Interpretation Comme nts ABO & RH (test code = 20) A Positive Performed at [facility] Laboratory Services - [facility] Blood [address]Toll Free: [phone] No. [id number] IAT (test code = 1185) Negative Performed at [facility] Laboratory Services - [facility] Blood [address]Toll Free: [phone] No. [id number] [facility]OL[facility] (NA, K, CL, CO2, GLUCOSE, BUN, CREATININE, CA)2022-06-06 11:12:05* Test Item Value Reference Range Interpretation Comme nts NA (test code = 5554272010) 134 mmol/L 135-145 L K (test code = 3860529432) 3.9 mmol/L 3.5-5.0 CL (test code = 7240229368) 101 mmol/L 98-108 CO2 TOTAL (test code = 0318849352) 26 mmol/L 23-31 AGAP (test code = 5404695393) 2-16 BUN (test code = 2655410189) 9 mg/dL 7-23 GLUCOSE (test code = 4888170343) 120 mg/dL 70-110 H CREATININE (test code = 6908477206) 0.74 mg/dL 0.50-1.04 CALCIUM (test code = 1694710999) 8.5 mg/dL 8.6-10.6 L eGFR (test code = 9510892236) mL/min/1.73m2 MELISSA (test code = MELISSA) Association of [...] or abnormalities in imaging tests). Lab Interpretation (test code = 86054-3) Abnormal [facility] WITH [id number] 10:51:00* Test Item Value Reference Range Interpretation Comme nts WBC (test code = 6690-2) See_Comment H [Automated Syndero] The system which generated this result transmitted reference range: 4.30 - 11.10 10*3/?L. The reference range was not used to interpret this result as normal/abnormal. RBC (test code = 789-8) See_Comment L [Automated Syndero] The system which generated this result transmitted reference range: 3.93 - 5.25 10*6/?L. The reference range was not used to interpret this result as normal/abnormal. HGB (test code = 718-7) 13.1 g/dL 11.6-15.0 HCT (test code = 4544-3) 38.6 % 35.7-45.2 MCV (test code = 787-2) 106.3 fL 80.6-95.5 H MCH (test code = 785-6) 36.1 pg 25.9-32.8 H MCHC (test code = 786-4) 33.9 g/dL 31.6-35.1 RDW-SD (test code = 33852-3) 54.9 fL 39.0-49.9 H RDW-CV (test code = 788-0) 13.9 % 12.0-15.5 PLT (test code = 777-3) See_Comment [Automated [employer]] The system which generated this result transmitted reference range: 166 - 358 10*3/?L. The reference range was not used to interpret this result as normal/abnormal. MPV (test code = 26694-0) 9.4 fL 9.5-12.9 L NRBC/100 WBC (test code = 0445048633) See_Comment [Automated [employer] ssage] The system which generated this result transmitted reference range: 0.0 - 10.0 /100 WBCs. The reference range was not used to interpret this result as normal/abnormal. NRBC x10^3 (test code = 9535545780) See_Comment [Automated [employer]] The system which generated this result transmitted reference range: 10*3/?L. The reference range was not used to interpret this result as normal/abnormal. GRAN MAT (NEUT) % (test code = 770-8) 71.3 % IMM GRAN % (test code = 9864536920) 0.30 % LYMPH % (test code = 736-9) 19.1 % MONO % (test code = 5905-5) 7.7 % EOS % (test code = 713-8) 1.4 % BASO % (test code = 706-2) 0.2 % GRAN MAT x10^3(ANC) (test code = 8531670691) 9.62 10*3/uL 1.88-7.09 H IMM GRAN x10^3 (test code = 0949785411) 0.04 10*3/uL 0.00-0.06 LYMPH x10^3 (test code = 731-0) 2.58 10*3/uL 1.32-3.29 MONO x10^3 (test code = 742-7) 1.04 10*3/uL 0.33-0.92 H EOS x10^3 (test code = 711-2) 0.19 10*3/uL 0.03-0.39 BASO x10^3 (test code = 704-7) 0.03 10*3/uL 0.01-0.07 Lab Interpretation (test code = 09254-4) Abnormal [facility] METABOLIC PANEL (NA, K, CL, CO2, GLUCOSE, BUN, CREATININE, CA)2022-06-05 14:05:05* Test Item Value Reference Range Interpretation Comme nts NA (test code = 1633294992) 135 mmol/L 135-145 K (test code = 3039626063) 4.3 mmol/L 3.5-5.0 CL (test code = 8665983636) 103 mmol/L 98-108 CO2 TOTAL (test code = 5459255562) 25 mmol/L 23-31 AGAP (test code = 7608571069) 2-16 BUN (test code = 8999011459) 9 mg/dL 7-23 GLUCOSE (test code = 1594579270) 131 mg/dL 70-110 H CREATININE (test code = 9730068181) 0.74 mg/dL 0.50-1.04 CALCIUM (test code = 2535909421) 8.9 mg/dL 8.6-10.6 eGFR (test code = 7422911690) mL/min/1.73m2 MELISSA (test code = MELISSA) Association of [...] or abnormalities in imaging tests). Lab Interpretation (test code = 04342-3) Abnormal [facility] WITH [id number] 14:00:43* Test Item Value Reference Range Interpretation Comme nts WBC (test code = 6690-2) See_Comment H [Automated message] The system which generated this result transmitted reference range: 4.30 - 11.10 10*3/?L. The reference range was not used to interpret this result as normal/abnormal. RBC (test code = 789-8) See_Comment L [Automated message] The system which generated this result transmitted reference range: 3.93 - 5.25 10*6/?L. The reference range was not used to interpret this result as normal/abnormal. HGB (test code = 718-7) 13.7 g/dL 11.6-15.0 HCT (test code = 4544-3) 39.0 % 35.7-45.2 MCV (test code = 787-2) 108.9 fL 80.6-95.5 H MCH (test code = 785-6) 38.3 pg 25.9-32.8 H MCHC (test code = 786-4) 35.1 g/dL 31.6-35.1 RDW-SD (test code = 27357-0) 58.9 fL 39.0-49.9 H RDW-CV (test code = 788-0) 14.5 % 12.0-15.5 PLT (test code = 777-3) See_Comment [Automated message] The system which generated this result transmitted reference range: 166 - 358 10*3/?L. The reference range was not used to interpret this result as normal/abnormal. MPV (test code = 73948-9) 9.6 fL 9.5-12.9 NRBC/100 WBC (test code = 8829970360) See_Comment [Automated message] The system which generated this result transmitted reference range: 0.0 - 10.0 /100 WBCs. The reference range was not used to interpret this result as normal/abnormal. NRBC x10^3 (test code = 6113762694) See_Comment [Automated message] The system which generated this result transmitted reference range: 10*3/?L. The reference range was not used to interpret this result as normal/abnormal. GRAN MAT (NEUT) % (test code = 770-8) 77.1 % IMM GRAN % (test code = 6734888561) 0.40 % LYMPH % (test code = 736-9) 14.9 % MONO % (test code = 5905-5) 6.8 % EOS % (test code = 713-8) 0.5 % BASO % (test code = 706-2) 0.3 % GRAN MAT x10^3(ANC) (test code = 6170358519) 11.31 10*3/uL 1.88-7.09 H IMM GRAN x10^3 (test code = 4192266841) 0.06 10*3/uL 0.00-0.06 LYMPH x10^3 (test code = 731-0) 2.18 10*3/uL 1.32-3.29 MONO x10^3 (test code = 742-7) 0.99 10*3/uL 0.33-0.92 H EOS x10^3 (test code = 711-2) 0.08 10*3/uL 0.03-0.39 BASO x10^3 (test code = 704-7) 0.04 10*3/uL 0.01-0.07 Lab Interpretation (test code = 59111-6) Abnormal [facility] - ONCE [id number] 15:06:36* Test Item Value Reference Range Interpretation Comme nts ABO & RH (test code = 20) A Positive Performed at [facility] Laboratory Services - [facility] Blood [address]Toll Free: [phone] No. [id number] IAT (test code = 1185) Negative Performed at [facility] Laboratory Services - [facility] Blood [address] [address]Fiet Free: [phone] No. [id number] [facility] - ONCE [id number] 15:06:36* Test Item Value Reference Range Interpretation Comme nts ABO & RH (test code = 20) A Positive Performed at [facility] Laboratory Services - [facility] Blood [address]Toll Free: [phone] No. [id number] IAT (test code = 1185) Negative Performed at [facility] Laboratory Services - [facility] Blood [place] [address]Toll Free: [phone] No. [id number] [facility]Basic [facility] Panel (NA, K, CL, CO2, GLUCOSE, BUN, CREATININE, CA)2022-06-03 09:50:20* Test Item Value Reference Range Interpretation Comme nts NA (test code = 9290645779) 136 mmol/L 135-145 K (test code = 0152197632) 3.7 mmol/L 3.5-5.0 CL (test code = 7703183367) 107 mmol/L 98-108 CO2 TOTAL (test code = 8899176547) 24 mmol/L 23-31 AGAP (test code = 1416173305) 2-16 BUN (test code = 1884073324) 13 mg/dL 7-23 GLUCOSE (test code = 2352118342) 120 mg/dL 70-110 H CREATININE (test code = 0545782383) 0.71 mg/dL 0.50-1.04 CALCIUM (test code = 0340441803) 8.4 mg/dL 8.6-10.6 L eGFR (test code = 9230357747) mL/min/1.73m2 MELISSA (test code = MELISSA) Association of [...] or abnormalities in imaging tests). Lab Interpretation (test code = 18730-7) Abnormal [facility] (NA, K, CL, CO2, GLUCOSE, BUN, CREATININE, CA)2022-06-03 09:50:20* Test Item Value Reference Range Interpretation Comme nts NA (test code = 2908506034) 136 mmol/L 135-145 K (test code = 7453445953) 3.7 mmol/L 3.5-5.0 CL (test code = 3419187094) 107 mmol/L 98-108 CO2 TOTAL (test code = 3273263935) 24 mmol/L 23-31 AGAP (test code = 9030625808) 2-16 BUN (test code = 5418822905) 13 mg/dL 7-23 GLUCOSE (test code = 3271226266) 120 mg/dL 70-110 H CREATININE (test code = 2315155795) 0.71 mg/dL 0.50-1.04 CALCIUM (test code = 7571417984) 8.4 mg/dL 8.6-10.6 L eGFR (test code = 7651686698) mL/min/1.73m2 MELISSA (test code = MELISSA) Association of [...] or abnormalities in imaging tests). Lab Interpretation (test code = 58871-4) Abnormal [facility] with [id number] 09:40:55* Test Item Value Reference Range Interpretation Comme nts WBC (test code = 6690-2) See_Comment [Automated Syndero] The system which generated this result transmitted reference range: 4.30 - 11.10 10*3/?L. The reference range was not used to interpret this result as normal/abnormal. RBC (test code = 789-8) See_Comment L [Automated Syndero] The system which generated this result transmitted reference range: 3.93 - 5.25 10*6/?L. The reference range was not used to interpret this result as normal/abnormal. HGB (test code = 718-7) 12.4 g/dL 11.6-15.0 HCT (test code = 4544-3) 36.9 % 35.7-45.2 MCV (test code = 787-2) 106.6 fL 80.6-95.5 H MCH (test code = 785-6) 35.8 pg 25.9-32.8 H MCHC (test code = 786-4) 33.6 g/dL 31.6-35.1 RDW-SD (test code = 68282-3) 59.3 fL 39.0-49.9 H RDW-CV (test code = 788-0) 15.1 % 12.0-15.5 PLT (test code = 777-3) See_Comment [Automated messa ge] The system which generated this result transmitted reference range: 166 - 358 10*3/?L. The reference range was not used to interpret this result as normal/abnormal. MPV (test code = 87921-8) 9.3 fL 9.5-12.9 L NRBC/100 WBC (test code = 1462591520) See_Comment [Automated Spontacts ssage] The system which generated this result transmitted reference range: 0.0 - 10.0 /100 WBCs. The reference range was not used to interpret this result as normal/abnormal. NRBC x10^3 (test code = [id number]) See_Comment [Automated messa ge] The system which generated this result transmitted reference range: 10*3/?L. The reference range was not used to interpret this result as normal/abnormal. GRAN MAT (NEUT) % (test code = 770-8) 59.8 % IMM GRAN % (test code = 0469455972) 0.40 % LYMPH % (test code = 736-9) 32.0 % MONO % (test code = 5905-5) 5.0 % EOS % (test code = 713-8) 2.4 % BASO % (test code = 706-2) 0.4 % GRAN MAT x10^3(ANC) (test code = 5273733207) 5.03 10*3/uL 1.88-7.09 IMM GRAN x10^3 (test code = 0822394220) 0.03 10*3/uL 0.00-0.06 LYMPH x10^3 (test code = 731-0) 2.69 10*3/uL 1.32-3.29 MONO x10^3 (test code = 742-7) 0.42 10*3/uL 0.33-0.92 EOS x10^3 (test code = 711-2) 0.20 10*3/uL 0.03-0.39 BASO x10^3 (test code = 704-7) 0.03 10*3/uL 0.01-0.07 Lab Interpretation (test code = 07314-4) Abnormal [facility] [id number] 09:40:55* Test Item Value Reference Range Interpretation Comme nts WBC (test code = 6690-2) See_Comment [Automated messa ge] The system which generated this result transmitted reference range: 4.30 - 11.10 10*3/?L. The reference range was not used to interpret this result as normal/abnormal. RBC (test code = 789-8) See_Comment L [Automated messa ge] The system which generated this result transmitted reference range: 3.93 - 5.25 10*6/?L. The reference range was not used to interpret this result as normal/abnormal. HGB (test code = 718-7) 12.4 g/dL 11.6-15.0 HCT (test code = 4544-3) 36.9 % 35.7-45.2 MCV (test code = 787-2) 106.6 fL 80.6-95.5 H MCH (test code = 785-6) 35.8 pg 25.9-32.8 H MCHC (test code = 786-4) 33.6 g/dL 31.6-35.1 RDW-SD (test code = 58219-7) 59.3 fL 39.0-49.9 H RDW-CV (test code = 788-0) 15.1 % 12.0-15.5 PLT (test code = 777-3) See_Comment [Automated messa ge] The system which generated this result transmitted reference range: 166 - 358 10*3/?L. The reference range was not used to interpret this result as normal/abnormal. MPV (test code = 92635-0) 9.3 fL 9.5-12.9 L NRBC/100 WBC (test code = 6172005066) See_Comment [Automated me ssage] The system which generated this result transmitted reference range: 0.0 - 10.0 /100 WBCs. The reference range was not used to interpret this result as normal/abnormal. NRBC x10^3 (test code = 4668742539) See_Comment [Automated messa ge] The system which generated this result transmitted reference range: 10*3/?L. The reference range was not used to interpret this result as normal/abnormal. GRAN MAT (NEUT) % (test code = 770-8) 59.8 % IMM GRAN % (test code = 2252648480) 0.40 % LYMPH % (test code = 736-9) 32.0 % MONO % (test code = 5905-5) 5.0 % EOS % (test code = 713-8) 2.4 % BASO % (test code = 706-2) 0.4 % GRAN MAT x10^3(ANC) (test code = 1082640776) 5.03 10*3/uL 1.88-7.09 IMM GRAN x10^3 (test code = 4014036211) 0.03 10*3/uL 0.00-0.06 LYMPH x10^3 (test code = 731-0) 2.69 10*3/uL 1.32-3.29 MONO x10^3 (test code = 742-7) 0.42 10*3/uL 0.33-0.92 EOS x10^3 (test code = 711-2) 0.20 10*3/uL 0.03-0.39 BASO x10^3 (test code = 704-7) 0.03 10*3/uL 0.01-0.07 Lab Interpretation (test code = 41483-1) [facility]normal [facility] [id number] 13:36:01* Test Item Value Reference Range Interpretation Comme nts ABO & RH (test code = 20) A Positive Performed at [facility] Laboratory Services - [facility] Blood [id number] [place] [address]Vmau Free: [phone] No. [id number] IAT (test code = 1185) Negative Performed at [facility] Laboratory Services - [facility] Blood [address] [address]Dufl Free: [phone] No. [id number] [facility] - ONCE [id number] 13:36:01* Test Item Value Reference Range Interpretation Comme nts ABO & RH (test code = 20) A Positive Performed at [facility] Laboratory Services - [facility] Blood [address] [address]Rprm Free: [phone] No. [id number] IAT (test code = 1185) Negative Performed at [facility] Laboratory Services - [facility] Blood [address] [address]Pjcj Free: [phone] No. [id number] [facility] Thyroid [id number] 15:24:00EXAM: US THYROIDDATE: 04/20/2018 3:24 PM CDTINDICATION: E04.2 Nontoxic multinodular goiter - E04.2 Nontoxicmultinodular goiterADDITIONAL INFORMATION: None.COMPARISON: Thyroid ultrasound 02/16/2018.TECHNIQUE: Multiplanar grayscale and color Doppler ultrasound of the neck wereobtained in the thyroid bed and surrounding soft tiussues.FINDINGS:Thyroid parenchyma: Diffusely nodular and heterogeneous..Is thmus thickness: 0.2 cm.Right thyroid size: 1.9 x [...] samplingor follow-up.3. Nodules classified by consensus TI-Rads criteria.REFERENCE:Xiomarasler FN, Tatyana WD, Kash EG, et al. ACR Thyroid Imaging, Reporting andData System (TI-RADS): White Paper of the ACR TI-RADS Committee. J Am CollRadiol. 2017; 14(5): 587-595.--Read by: David Dolan MDDictated Date/time: 04/20/18 16:34Electronically Signed by: David Dolan MD 04/20/1816:41FINAL REPORTUT PhysiciansUS Thyroid [id number] 16:33:00 EXAM: US THYROIDDATE: 02/16/2018 4:06 PM CDTINDICATION: - E04.2 Nontoxic multinodular goiterCOMPARISON: 06/20/2017TECHNIQUE: Multiplanar grayscale and color Doppler ultrasound images of theneck were obtained in the area of the thyroid. DISCUSSION:Thyroid parenchyma: HeterogeneousRight thyroid size: 4.7 x 2 x 2.5 cmLeft thyroid size: 3.8 x 1.4 x 1.2 cmThyroid nodule: Subcentimeter echogenic nodulesare seen bilaterally [id number] x 6 x 7 mm and 6 x 5 x 6 mm on the right side in the mid and lowerglandrespectively and 6 x 5 x 5 mm and 6 x 5 x 6 mm on the left side in the lowerpole.The isthmus measures 2.3 mm.IMPRESSION:Heterogeneous thyroid parenchyma containing echogenic nodules versus normalthyroid parenchyma similar to the prior exam. No interval change. Recommendationsfor Thyroid Nodules > 1 cmSolitary NoduleMicrocalcifications: Strongly consider US-guided FNA if= 1 cmSolid (or almost entirely solid) or coarse calcifications: Strongly considerUS-guided FNA if = 1.5 cmMixed solid and cystic or almost entirely cystic with solid mural component:Consider FNA if = 2 cmAlmost entirely cystic and none of above features and without substantialgrowth (or without prior US): US-guided FNA probably unnecessaryMultiple NodulesConsider US-guided FNA of one or more nodu les, with selection prioritized onbasis of criteria (in [...] Radiologists in Ultrasound consensus conferencestatement. Radiology. 2005; [phone].--Read by: Jennifer Hargrove MDDictated Date/time: 02/17/18 11:44Electronically Signed by: Jennifer Hargrove MD 02/17/1811:47FINAL REPORTUT [facility] [[facility]] T3, [id number] 13:13:01* Test Item Value Reference Range Interpretation Comme nts T3 Free (test code = T3 Free) 2.90 pg/ml 2.18-3.98 [facility]] T4, [id number] 13:13:01* Test Item Value Reference Range Interpretation Comme nts T4 Free (test code = T4 Free) 0.99 ng/dl 0.76-1.46 [facility]] TSH, 3RD [id number] 13:13:01* Test Item Value Reference Range Interpretation Comme nts TSH (test code = 70871-9) 3.340 {uIU/ml} 0.360-3.740 [facility] [id number] 10:40:00EXAM: US THYROIDDATE: 07/12/2017 10:45 AM CSTINDICATION: [...] Radiologists in Ultrasound consensus conferencestatement. Radiology. 2005; [phone].--Read by: Jennifer Hargroveictated Date/time: 07/12/17 11:26Electronically Signed by: Jennifer Hargrove MD 07/12/1711:32FINAL REPORTUT [facility]"
[2024-07-29 22:24] LABS: Specific Gravity 1.013 (1.005-1.030)
[2024-07-29 22:25] LABS: Specific Gravity 1.013 (1.005-1.030); Urine Bilirubin NEGATIVE (Negative); Urine Blood Negative (Negative); Urine Clarity Clear (Clear); Urine Color Colorless (Yellow); Urine Glucose 4+ (Over) (Negative); Urine Ketones TRACE (Negative); Urine Microscopic Reflex YN NO UMIC; Urine Nitrite NEGATIVE (Negative); Urine Protein NEGATIVE (Negative); Urine Urobilinogen Normal (Normal)
--- NOTE | 2024-07-29 22:28 | RAD REPORT ---
Procedure: Chest Single View HISTORY: Chest pain COMPARISON: 2022 FINDINGS: The lungs appear clear of acute infiltrate. No significant pleural effusion noted. The heart is borderline enlarged. IMPRESSION: No acute abnormality is displayed.
[2024-07-29 22:30] LABS: Absolute Monocytes 0.1 K/uL (0.1-1.3); Absolute Neutrophil 12.9 K/uL (1.8-8.0); Basophils % 0.2 % (0-1.3); Eosinophils % 0.1 % (0-4.4); Hematocrit 41.4 % (36.0-45.0); Hemoglobin 14.1 g/dL (12.0-15.0); Lymphocytes % 6.8 % (15.3-44.8); MCH 36.5 pg (27.0-35.0); MCHC 34.1 g/dL (32.0-36.0); MCV 107.1 fL (80-100); MPV 7.7 fL (7.6-11.3); Monocytes % 0.8 % (3.3-12.3); Neutrophils % 92.1 % (41.7-73.7); Platelets 310 thou/uL (152-406); RBC Red Blood Cell Count 3.86 M/uL (3.86-4.86); Red Cell Distribution Width 13.5 % (12.1-15.2)
--- NOTE | 2024-07-29 22:34 | RAD REPORT ---
EXAMINATION: US bilateral LOWER EXTREMITY VENOUS DOPPLER CLINICAL INDICATION: Leg swelling TECHNIQUE: Sonographic evaluation of the veins of the lower extremity bilaterally formed.Grayscale, c olor and spectral analysis performed on all vessels COMPARISON: No prior exam. FINDINGS: The common femoral, superficial femoral, greater saphenous, popliteal and posterior tibial veins bila terally are compressible and demonstrate augmentation. Doppler demonstrates good flow. IMPRESSION: No evidence of deep venous thrombosis involving either lower extremity
[2024-07-29 22:44] LABS: ALT/SGPT 36 U/L (13-56); AST/SGOT 26 U/L (15-37); Albumin 3.7 g/dL (3.4-5.0); Albumin/Globulin Ratio 1.1 (1.1-1.8); Alkaline Phosphatase 73 U/L (45-117); Anion Gap 12.2 mEq/L (5.0-15.0); BUN Blood Urea Nitrogen 13 mg/dL (7-18); Bicarbonate 21 mEq/L (21-32); Bilirubin Direct < 0.2 mg/dL (0-0.2); Bilirubin Indirect, Calculated 0.1 mg/dL (0.2-0.8); Bilirubin Total 0.3 mg/dL (0.2-1.0); Globulin 3.5 g/dL (2.3-3.5); Glomerular Filtration Rate 59 ml/min (=/>90); Glucose Level 306 mg/dL (74-106); Magnesium 2.1 mg/dL (1.6-2.4); NT PRO-BNP 72 pg/mL (<125); Potassium 4.2 mEq/L (3.5-5.1); Protein, Total 7.2 g/dL (6.4-8.2); Sodium Level 135 mEq/L (136-145); Troponin High Sensitivity 4.5 pg/mL (<58.9)
[2024-07-29] MEDS ORDERED: ASPIRIN 81 MG CHEWABLE TABLET ONE (23:04)
[2024-07-30] MEDS ORDERED: NA CHLORIDE 0.9% 1,000 ML ONE (00:01)
[2024-07-30 00:09] LABS: Band Neutrophils 7 % (0-1); Blood Morphology Comment NOTED (NOT SEEN); Differential Total Cells Count 100; Lymphocytes 4 % (15-42); Macrocytosis 1+; Monocytes 0 % (0-10); Platelet Estimate ADEQ; Segmented Neutrophils 89 % (40-80)
[2024-07-30] MEDS ORDERED: MORPHINE 4 MG/ML SYR ONE (00:23)
[2024-07-30] MEDS ORDERED: ONDANSETRON 4 MG/2 ML VIAL ONE (00:23)
--- NOTE | 2024-07-30 02:01 | RAD REPORT ---
EXAM: CT Angiography Chest With Intravenous Contrast CLINICAL HISTORY: The patient is 44 years old and is Female; CHEST PAIN TECHNIQUE: Axial computed tomographic angiography images of the chest with intravenous contrast. Sagittal an d coronal reformatted images were created and reviewed. This CT exam was performed using one or more of the following dose reduction techniques: automated exposure control, adjustment of the mA a nd/or kV according to patient size, and/or use of iterative reconstruction technique. MIP reconstructed images were created and reviewed. COMPARISON: CTA March 15, 2023 FINDINGS: PULMONARY ARTERIES: There are no obvious filling defects identified within the pulmonary arteries to suggest pulmonary embolism. AORTA: No acute findings. No thoracic aortic aneurysm. LUNGS: Unremarkable. No mass. No consolidation. PLEURAL SPACE: Unremarkable. No significant effusion. No pneumothorax. HEART: A trace pericardial effusion is present. No cardiomegaly. No evidence of RV dysfunctio n. BONES/JOINTS: No acute fracture. No dislocation. SOFT TISSUES: Unremarkable. LYMPH NODES: Unremarkable. No enlarged lymph nodes. LIVER: The liver is enlarged and fatty. IMPRESSION: No evidence of pulmonary embolism. Electronically signed by: Skylar Rivera MD 07/30/2024 01:58 AM [facility] Due to temporary technical issues with the PACS/[employer] reporting system, reports are being melida d by the in-house radiologist without review as a courtesy to ensure prompt reporting the interpreting radiologist is fully responsible for the content of the report. Transcribed Date/Time: 07/30/2024 2:01 AM
--- NOTE | 2024-07-30 02:21 | EDPHYS ---
Physician Documentation [facility] Name: Ivette Joshi Age: 44 yrs Sex: Female : 1980 Arrival Date: 07/29/2024 Time: 21:40 Bed 6 Private MD: ED Physician Nathan Hussein HPI: 07/29 21:50 This 44 yrs old Female presents to ER via Unassigned with complaints of Chest Pain, Leg kb Swelling, Feet Swelling, Numbness Of Lips. 21:50 Pt is a 44 year old female who presents for bilateral lower extremity swelling and kb upper lip numbness for one week. States she has had chest pain to the right side of chest that radiates down right arm since yesterday with shortness of breath. Denies n/v, fever. Reports she has been driving with her for the last 3 weeks. . MANAGER INFORMATION: 22:07 LMP N/A - Hysterectomy, Not vc1 Historical: - Allergies: 22:04 No Known Allergies; vc1 - PMHx: 22:03 COPD; Hashimotos; Hypothyroidism; hysterectomy; Migraine; vc1 - PSHx: 22:03 back surgery; Tonsillectomy; Total abdominal hysterectomy; vc1 - Immunization history:: Client reports having NOT received the Covid vaccine. Flu vaccine is not up to date. - Infectious Disease History:: Denies. - Social history:: Smoking status: Patient reports the use of cigarette tobacco products, smokes one pack cigarettes per day. ROS: 21:53 Constitutional: As per HPI kb Exam: 21:53 Constitutional: This is a well developed, well nourished patient who is awake, alert, kb and in no acute distress. Head/Face: Normocephalic, atraumatic. ENT: Moist Mucous membranes Cardiovascular: Tachycardic rate Respiratory: Respirations even and unlabored. No increased work of breathing. Talking in full sentences Abdomen/GI: Soft, non-tender. No distention Skin: Warm, dry with normal turgor. Normal color. MS/ Extremity: Pulses equal, no cyanosis. Neurovascular intact. Full, normal range of motion. Neuro: Awake and alert, GCS 15, oriented to person, place, time, and situation. 22:14 ECG was reviewed by the Attending Physician. kb Vital Signs: 22:01 Weight 103.87 kg; Height 5 ft. 6 in. ; Pain 5/10; vc1 22:07 BP 147 / 92; Pulse 120; Resp 18; Temp 98; Pulse Ox 98% ; vc1 07/30 00:09 BP 116 / 67; Pulse 109; Resp 16; Pulse Ox 98% ; jj7 01:10 BP 145 / 80; Pulse 106; Resp 16; Pulse Ox 98% on R/A; jj7 02:08 BP 108 / 65; Pulse 106; Resp 17; Pulse Ox 98% ; jj7 02:30 BP 103 / 53; Pulse 104; Resp 17; Temp 98.1; Pulse Ox 97% ; Pain 0/10; jj7 07/29 22:01 Body Mass Index 36.96 (103.87 kg, 167.64 cm) vc1 07/29 22:01 Pain Scale: Adult vc1 02:30 Pain Scale: Adult jj7 MDM: 07/29 21:49 Medical Screening Exam initiated kb 21:54 Differential diagnosis: PE, arrhythmia, acute mi. Data reviewed: vital signs, nurses kb notes. 07/30 01:49 Transition of care: After a detail discussion of the patient's case, care is kb transferred to Nathan Hussein MD. 02:02 Transition of care: Care assumed from Elise SEO. rn 02:18 Differential diagnosis: acute myocardial infarction, acute pericarditis, anxiety, rn coronary artery disease chest wall pain, costochondritis, esophagitis, gastritis, gastroesophageal reflux disease (GERD), pulmonary embolus. Counseling: I had a detailed discussion with the patient and/or guardian regarding the historical points, exam findings, and any diagnostic results supporting the discharge/admit diagnosis, lab results, radiology results, the need for outpatient follow up, to return to the emergency department if symptoms worsen or persist or if there are any questions or concerns that arise at home. Response to treatment: the patient's symptoms have markedly improved after treatment, and as a result, I will discharge patient. ED course: Labs and CT unremarkable except for mild elevation of glucose. Patient is not fasting but symptoms of 1 year of generalized weakness lightheadedness increased thirst and urination are consistent with probable diabetes. Her PCP sent blood yesterday and results should be coming soon. After long discussion with patient and the decision was made to send home without medication for diabetes until her results come back from her PCP to avoid unnecessary prescription. No indication for emergent admission to the hospital. Offered another liter bolus of NS and patient declines wants to drink water at home. Return precautions given and understood.. 07/29 21:55 Order name: Basic Metabolic Panel; Complete Time: 22:45 kb 07/29 21:55 Order name: CBC with Diff; Complete Time: 00:10 kb 07/29 21:55 Order name: D-Dimer; Complete Time: 22:38 kb 07/29 21:55 Order name: LFT's; Complete Time: 22:45 kb 07/29 21:55 Order name: Magnesium; Complete Time: 22:45 kb 07/29 21:55 Order name: NT PRO-BNP; Complete Time: 22:45 kb 07/29 21:55 Order name: Troponin HS; Complete Time: 22:45 kb 07/29 21:56 Order name: Test, Urine kb 07/29 21:56 Order name: Urinalysis w/ reflexes; Complete Time: 22:27 kb 07/29 22:40 Order name: Manual Differential; Complete Time: 00:10 EDMS 07/29 21:55 Order name: XRAY Chest (1 view); Complete Time: 22:38 kb 07/29 21:55 Order name: US Extremity Venous W Compression Braxton; Complete Time: 22:38 kb 07/29 23:40 Order name: CT Chest For PE Angio kb 07/29 21:55 Order name: Cardiac monitoring; Complete Time: 23:57 kb 07/29 21:55 Order name: EKG - Nurse/Tech; Complete Time: 22:14 kb 07/29 21:55 Order name: IV Saline Lock; Complete Time: 22:14 kb 07/29 21:55 Order name: Labs collected and sent; Complete Time: 22:14 kb 07/29 21:55 Order name: O2 Per Protocol; Complete Time: 22:52 kb 07/29 21:55 Order name: O2 Sat Monitoring; Complete Time: 22:52 kb 07/29 21:56 Order name: Orthostatics; Complete Time: 23:13 kb EC/23 22:14 Rate is 117 beats/min. Rhythm is regular. QRS [place] is Normal. [place] interval is normal at kb 134 msec. QRS interval is normal at 84 msec. QT interval is normal at 471 msec. Administered Medications: 23:57 Drug: Aspirin PO Chewable Tablet 324 mg PO once; 81 mg tablets x 4 Route: PO; vc1 07/30 00:09 Follow up: Response: No adverse reaction 00:05 Drug: NS 0.9% IV 1000 ml IV at 1000 ml once; to be given as a bolus over 60 minutes 7 Route: IV; Rate: 1000 ml; Site: left antecubital; 01:13 Follow up: IV Status: Completed infusion 00:30 Drug: morphine IVP or IV 4 mg IVP once over 4 mins Route: IVP; Infused Over: 4 mins; jj7 Site: left antecubital; 01:21 Follow up: Response: Marked relief of symptoms; Pain is decreased 00:31 Drug: Ondansetron IVP 4 mg IVP once; over 2 minutes Route: IVP; Site: left antecubital; jj7 01:21 Follow up: Response: Marked relief of symptoms 7 Disposition: 04:24 Co-signature as Attending Physician, Nathan Hussein MD I reviewed the patient's care rn provided by the Advanced Practice Provider and agree with the diagnosis and treatment plan. Disposition Summary: 07/30/24 02:20 Discharge Ordered Notes: Location: Home rn Problem: an ongoing problem rn Symptoms: have improved rn Condition: Stable rn Diagnosis - Dehydration rn - Hyperglycemia, unspecified rn Followup: rn - With: Private Physician - When: 2 - 3 days - Reason: Recheck today's complaints, Re-evaluation by your physician Discharge Instructions: - Discharge Summary Sheet rn - Dehydration, Adult rn - Hyperglycemia rn - Blood Glucose Monitoring, Adult rn Forms: - Medication Reconciliation Form rn - Antibiotic internet systems administrator - Prescription Opioid Use rn - Patient Portal Instructions rn - Leadership Thank You Letter rn Signatures: Dispatcher [employer] EDPA Elise Mcpherson, CARRIER BLOWER-C CARRIER BLOWER-Ckb Nathan Hussein MD MD rn Calcote, Vanessa RN RN vc1 Min Irizarry RN RN jj7 Corrections: (The following items were deleted from the chart) 07/29 21:55 21:55 BASIC METABOLIC PANEL+C.LAB.BRZ ordered. EDMS EDMS 21:55 21:55 CBC+H.LAB.BRZ ordered. EDPA EDMS 21:55 21:55 D-DIMER+COAG.LAB.BRZ ordered. EDMS EDMS 21:55 21:55 HEPATIC FUNCTION+C.LAB.BRZ ordered. EDMS EDMS 21:55 21:55 MAGNESIUM+C.LAB.BRZ ordered. EDMS EDMS 21:55 21:55 PROBNP+C.LAB.BRZ ordered. EDMS EDMS : 21:55 Troponin High Sensitivity+C.LAB.BRZ ordered. EDMS EDMS 21: 21:55 Chest Single View+RAD.RAD.BRZ ordered. EDMS EDMS 21:55 21:55 Extrem Venous W Compression Braxton+US.RAD.BRZ ordered. EDMS EDMS 21:55 21:50 Pt is a 44 year old female who presents for bilateral lower extremity swelling kb and upper lip numbness for one week. States she has had chest pain to the right side of chest that radiates down right arm since yesterday with shortness of breath. Denies n/v, fever. . kb 22:14 21:53 Constitutional: This is a well developed, well nourished patient who is awake, kb alert, and in no acute distress. Head/Face: Normocephalic, atraumatic. ENT: Moist Mucous membranes Cardiovascular: Regular rate Respiratory: Respirations even and unlabored. No increased work of breathing. Talking in full sentences Abdomen/GI: Soft, non-tender. No distention Skin: Warm, dry with normal turgor. Normal color. MS/ Extremity: Pulses equal, no cyanosis. Neurovascular intact. Full, normal range of motion. Neuro: Awake and alert, GCS 15, oriented to person, place, time, and situation. kb
--- NOTE | 2024-07-30 02:21 | ER ---
Nurse's Notes [facility] Name: Ivette Joshi Age: 44 yrs Sex: Female : 1980 Arrival Date: 07/29/2024 Time: 21:40 Bed 6 Private MD: Diagnosis: Dehydration;Hyperglycemia, unspecified Presentation: 07/29 22:01 Chief complaint: Patient states: chest pain, numbness and tingling around top of mouth vc1 and jitters and swelling to forrest legs more on the left. Coronavirus screen: Client denies travel out of the [place] in the last 14 days. At this time, the client does not indicate any symptoms associated with coronavirus-19. Ebola Screen: Patient negative for fever greater than or equal to 101.5 degrees Fahrenheit, and additional compatible Ebola Virus Disease symptoms Patient denies exposure to infectious person. Patient denies travel to an Ebola-affected area in the 21 days before illness onset. No symptoms or risks identified at this time. Initial Sepsis Screen: Does the patient meet any 2 criteria? No. Patient's initial sepsis screen is negative. Does the patient have a suspected source of infection? No. Patient's initial sepsis screen is negative. Risk Assessment: Do you want to hurt yourself or someone else? Patient reports no desire to harm self or others. Onset of symptoms is unknown. 22:01 Method Of Arrival: Ambulatory vc1 22:01 Acuity: [facility] 3 vc1 Triage Assessment: 22:04 General: Appears in no apparent distress. Behavior is calm, cooperative, appropriate vc1 for age. Pain: Complains of pain in chest. EENT: No deficits noted. No signs and/or symptoms were reported regarding the EENT system. Neuro: Level of Consciousness is awake, alert, obeys commands, Oriented to person, place, time, situation, Appropriate for age. Cardiovascular: Chest pain is described as mild. Respiratory: Airway is patent Respiratory effort is even, unlabored, Respiratory pattern is regular, symmetrical, Breath sounds are clear bilaterally. GI: No deficits noted. No signs and/or symptoms were reported involving the gastrointestinal system. : No deficits noted. No signs and/or symptoms were reported regarding the genitourinary system. Derm: Skin is intact, is healthy with good turgor, Skin is dry, Skin is normal, Skin temperature is warm. Musculoskeletal: Circulation, motion, and sensation intact. Range of motion: intact in all extremities. 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 Flu vaccine is not up to date. - Infectious Disease History:: Denies. - Social history:: Smoking status: Patient reports the use of cigarette tobacco products, smokes one pack cigarettes per day. Screenin:07 Abuse screen: Denies threats or abuse. Nutritional screening: No deficits noted. vc1 Tuberculosis screening: No symptoms or risk factors identified. 07/30 00:09 [facility] ED Fall Risk Assessment (Adult) History of falling in the last 3 months, jj7 including since admission No falls in past 3 months (0 pts) Confusion or Disorientation No (0 pts) Intoxicated or Sedated No (0 pts) Impaired Gait No (0 pts) Mobility Assist Device Used No (0 pt) Altered Elimination No (0 pt) Score/Fall Risk Level 3 or more points = High Risk Oriented to surroundings, Maintained a safe environment, Educated pt \T\ family on fall prevention, incl call for assistance when getting out of bed, Assessed \T\ reinforced patient's understanding of fall precautions. Assessment: 00:09 Reassessment: ASSUMED CARE OF PT. PT LYING IN BED. VS STABLE. WARM BLANKET AND PILLOW jj7 PROVIDED. FAMILY AT BEDSIDE. CALL ROSARIO IN REACH. Pain: Complains of pain in chest Pain radiates to anterior aspect of right upper chest. Cardiovascular: Chest pain is described as mild, Pain is 8 out of 10 on a pain scale. 01:21 Reassessment: Patient is alert, oriented x 3, equal unlabored respirations, skin jj7 warm/dry/pink. Patient states feeling better. Vital Signs: 07/29 22:01 Weight 103.87 kg; Height 5 ft. 6 in. ; Pain 5/10; vc1 22:07 BP 147 / 92; Pulse 120; Resp 18; Temp 98; Pulse Ox 98% ; vc1 07/30 00:09 BP 116 / 67; Pulse 109; Resp 16; Pulse Ox 98% ; jj7 01:10 BP 145 / 80; Pulse 106; Resp 16; Pulse Ox 98% on R/A; jj7 02:08 BP 108 / 65; Pulse 106; Resp 17; Pulse Ox 98% ; jj7 02:30 BP 103 / 53; Pulse 104; Resp 17; Temp 98.1; Pulse Ox 97% ; Pain 0/10; jj7 07/29 22:01 Body Mass Index 36.96 (103.87 kg, 167.64 cm) vc1 07/29 22:01 Pain Scale: Adult vc1 02:30 Pain Scale: Adult j7 ED Course: 07/29 21:47 Patient arrived in ED. im 21:49 Elise Mcpherson F[facility]-C [facility] kb 21:49 Nathan Hussein MD is Attending Physician. kb 22:03 Triage completed. vc1 22:04 Arm band placed on left wrist. vc1 22:14 Test, Urine Sent. vc1 22:14 Urinalysis w/ reflexes Sent. vc1 22:14 Basic Metabolic Panel Sent. vc1 22:14 CBC with Diff Sent. vc1 22:14 D-Dimer Sent. vc1 22:15 EKG done per protocol. Performed by ED Staff. Shown to ED physician. vc1 22:15 Urine obtained. Labs ordered per protocol. Drawn by ED staff. vc1 22:15 LFT's Sent. vc1 22:15 Magnesium Sent. vc1 22:15 NT PRO-BNP Sent. vc1 22:15 Troponin HS Sent. vc1 22:15 Initial lab(s) drawn, by ED staff, sent to lab. EKG done, by ED staff. vc1 22:26 XRAY Chest (1 view) In Process Unspecified. EDMS 22:31 US Extremity Venous W Compression Forrest In Process Unspecified. EDMS 23:53 Ivette Davison, RN is Primary Nurse. al5 07/30 00:05 Warm blanket given. Pillow given. jj7 00:09 Bed in low position. Call light in reach. Side rails up X 1. Adult w/ patient. Provided jj7 Education on: USE OF IV. Client placed on continuous cardiac and pulse oximetry monitoring. NIBP monitoring applied. 00:41 Diet: Patient given snack. jj7 00:42 CT Chest For PE Angio In Process Unspecified. EDMS 02:29 No provider procedures requiring assistance completed. IV discontinued, intact, jj7 bleeding controlled, No redness/swelling at site. Pressure dressing applied. Patient maintains SpO2 saturation greater than 95% on room air. Administered Medications: 07/29 23:57 Drug: Aspirin PO Chewable Tablet 324 mg PO once; 81 mg tablets x 4 Route: PO; vc1 07/30 00:09 Follow up: Response: No adverse reaction jj7 00:05 Drug: NS 0.9% IV 1000 ml IV at 1000 ml once; to be given as a bolus over 60 minutes jj7 Route: IV; Rate: 1000 ml; Site: left antecubital; 01:13 Follow up: IV Status: Completed infusion jj7 00:30 Drug: morphine IVP or IV 4 mg IVP once over 4 mins Route: IVP; Infused Over: 4 mins; jj7 Site: left antecubital; 01:21 Follow up: Response: Marked relief of symptoms; Pain is decreased jj7 00:31 Drug: Ondansetron IVP 4 mg IVP once; over 2 minutes Route: IVP; Site: left antecubital; jj7 01:21 Follow up: Response: Marked relief of symptoms jj7 Medication: 00:09 VIS not applicable for this client. jj7 Outcome: 02:20 Discharge ordered by . rn 02:29 Discharged to home ambulatory, with significant other, jj7 02:29 Condition: improved 02:29 Discharge instructions given to patient, Instructed on discharge instructions, follow up and referral plans. Demonstrated understanding of instructions, follow-up care, 02:31 Patient left the ED. jj7 Signatures: Dispatcher [employer] EDCA Elise Mcpherson, ABSENCE MANAGEMENT CONSULTANT-C ABSENCE MANAGEMENT CONSULTANT-Ckb Nathan Hussein MD MD rn Calcote, Vanessa RN RN vc1 Min Irizarry RN RN jj7 Marcia Sims Amanda RN RN al5 Corrections: (The following items were deleted from the chart) 02:29 02:28 [facility] ED Fall Risk Assessment (Adult) Altered Elimination jj7 jj7
[2024-07-30 02:55] VITALS: BP 103/53; TEMP 98.1; O2SAT 97
--- NOTE | 2024-08-02 13:46 | EKG ---
Test Date: 2024-07-29 Test Time: 22:08:18 Barge Worker: AKILA MEASUREMENT RESULTS: Intervals: Rate: 117 AL: 134 QRSD: 84 QT: 338 QTc: 471 Ayden: P: 60 AL: 134 QRS: 62 T: 27 INTERPRETIVE STATEMENTS: Sinus tachycardia Otherwise normal ECG Compared to ECG 03/15/2023 19:14:36 No significant changes Electronically Signed On 08-02-24 13:38:36 LOOM REPAIRER by Yoni Berry
== END 2024-07-30 02:31 | disposition home or self-care (01) ==
LOC: ER 21:40
DX: E86.0 Dehydration (principal); R73.9 Hyperglycemia, unspecified; J44.9 Chronic obstructive pulmonary disease, unspecified; E03.9 Hypothyroidism, unspecified; E06.3 Autoimmune thyroiditis; F17.210 Nicotine dependence, cigarettes, uncomplicated
CPT/HCPCS: 36415; 71045; 71275; 80048; 80076; 81003; 81025; 83735; 83880; 84484; 85025; 85379; 93005; 93970; 96361; 96374; 96375; 99285; J2405; J7030; Q9967